=== PATIENT | male | born 1955 | race African-American/Black ===

== ENCOUNTER 2016-10-24 09:21 | Emergency (ER) | payer MEDICAID ==
[~2016-10-24] VITALS: Ht 177.8 cm; Wt 75.0 kg
[~2016-10-24 09:21] MED LIST: ALBU6.7H INH; AMLO5TAB2 PO; ASPI1TAB69 PO; FAMO1TAB37 PO; HYDR12.56 PO; IPRA17I INH; METO50TA11 PO; PROM25TA5 PO; SOMA350T PO; TAMS5CAP PO; TEMA30CA PO; ZENP PO
[2016-10-24 09:23] VITALS: BP 141/67; PULSE 61; RESP 18; TEMP 98.3; O2SAT 99
[2016-10-24 09:34] VITALS: BP 142/67; PULSE 62; RESP 18; TEMP 98.3; O2SAT 99
[2016-10-24] MEDS ORDERED: HYDR-3535 PO (09:56)
[2016-10-24] MEDS ORDERED: XANA1TAB2 PO (09:56)
--- NOTE | 2016-10-24 10:40 | PD ---
HPI Chief Complaint: Dizziness Time Seen by Provider: 10:31 Travel History International Travel<30 days: No Contact w/Intl Traveler<30days: No Traveled to known affect area: No History of Present Illness HPI 61-year-old male came to the emergency room with multiple complaints including chest pain, abdominal pain, dizziness, lightheadedness and thinking he might be anemic. Patient says all these symptoms have been going on since yesterday. He has had these symptoms in the past when he was diagnosed with anemia. 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 No history of syncopal episode this time. No history of vomiting or diarrhea. Vital signs were stable in the emergency room. He did not appear to be in any distress. His chest pain he points to his right side of the chest and says it radiates to his left and the left shoulder. No aggravating or relieving factors. PFSH Past Medical History Narrative Medical List of his past medical, surgical, social and family history is reviewed from the nursing note. Anemia: Yes Arthritis: Yes Asthma: No Autoimmune Disease: No Blood Disorders: No Anxiety: Yes Depression: No Heart Rhythm Problems: Yes (PATIENT STATES "HEART OCCASIONALLY BEATS OUT OF RHYTHM" [place]) Cancer: Yes Cardiac Catheterization: Yes Cardiovascular Problems: Yes ([place] ) High Cholesterol: No Chest Pain: Yes Congestive Heart Failure: Yes COPD: No Cerebrovascular Accident: Yes (TIA ) Coronary Artery Disease: Yes Diabetes: No Diminished Hearing: No Endocrine: No Gastrointestinal Disorders: Yes (GI BLEED, IBS) GERD: Yes Genitourinary: Yes (RETENTION FROM PROSTATE ENLARGEMENT) Headaches: Yes Hiatal Hernia: Yes Hypertension: Yes 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") Implanted Vascular Access Dvce: Yes Musculoskeletal: Yes (LEG WEAKNESS) Neurologic: Yes (CVA, TIA) Psychiatric: No Reproductive: No Respiratory: Yes (PNA, COPD) Immunizations Current: Yes Myocardial Infarction: Yes Pancreatitis: Yes Radiation Therapy: Yes Sleep Apnea: Yes Thyroid Disease: No Ulcer: Yes Tetanus Vaccination: < 5 Years Influenza Vaccination: Yes PNEUMOCCOCAL Vaccine (Year): 1 ?: Not Past Surgical History Abdominal Surgery: Yes (REPAIR LEAKING BLOOD VESSEL IN RECTUM X3, POLYP REMOVED ) AICD: No Arteriovenous Shunt: No Body Medical Devices: TITANIUM MIKE IN LEFT HIP, BULLET IN RIGHT SHOULDER Cardiac Surgery: Yes (CATH) Cholecystectomy: Yes Ear Surgery: No Endocrine Surgery: No Eye Surgery: No Genitourinary Surgery: No Gynecologic Surgery: No Insulin Pump: No Joint Replacement: Yes (LEFT HIP-TOTAL, LEFT ROTATOR CUFF SURGERY) Oral Surgery: No Pacemaker: No Thoracic Surgery: Yes (lung reattachment) Other Surgery: Yes (right lubg ) Social History Alcohol Use: No Tobacco Use: Yes Substance Use: No Allergies-Medications (Allergen,Severity, Reaction): Coded Allergies: Cardura (Verified Allergy, Severe, SOB,CHEST PAIN, 09/28/16) Cipro (Verified Allergy, Severe, RASH, SWOLLEN FACE, 09/28/16) Codeine (Verified Allergy, Severe, 09/28/16) PT DOESNT REMEMBER THE REACTION HE GETS Contrast Media (Verified Allergy, Severe, BLISTERS AND EDEMA AT SITE, ) Imodium (Verified Allergy, Severe, 09/28/16) BROKE OUT IN RASH, AND SWELLING AROUND NECK Nonsteroidal Anti-Inflammatory Agts (Verified Allergy, Severe, 09/28/16) Spironolactone (Verified Allergy, Severe, Bleeding, 09/28/16) Fentanyl (Verified Allergy, Mild, 09/28/16) rash Corticosteroids (Verified Adverse Reaction, Severe, HEART MURMUR, 09/28/16) MRI PRECAUTION (Verified Adverse Reaction, Severe, SHRAPNEL IN C-SPINE per Dr. Smart 10/26/04, 09/28/16) Morphine (Verified Adverse Reaction, Severe, CHEST PAIN, 09/28/16) Comments List of his allergies reviewed from the nursing note. Reported Meds & Prescriptions Reported Meds & Active Scripts Active Reported Xanax (Alprazolam) 1 Mg Tab 1 Mg PO Q8H PRN Lortab (Hydrocodone-Acetaminophen) 10-325 Mg Tab 1 Tab PO Q4H PRN Flomax (Tamsulosin HCl) 0.4 Mg Cap 0.4 Mg PO BID Hydrochlorothiazide 12.5 Mg Tab 25 Mg PO DAILY Metoprolol Succinate ER 24 HR (Metoprolol Succinate) 50 Mg Tab 100 Mg PO BID Soma (Carisoprodol) 350 Mg Tab 350 Mg PO TID PRN Atrovent HFA 12.9 GM Inh (Ipratropium [place]) 17 Mcg/Act Aer 2 Puff INH TID Aspirin 81 Mg Tabdr 81 Mg PO EVERY OTHER DAY Amlodipine (Amlodipine Besylate) 5 Mg Tab 5 Mg PO BID Proventil Hfa 6.7 GM Inh (Albuterol Sulfate) 90 Mcg/Act Aer 2 Puff INH Q6H PRN Zenpep (Pancrelipase) 3,000-10,000-16,000 Units Cap 2 Cap PO TIDPC Pepcid (Famotidine) 20 Mg Tab 20 Mg PO DAILY Phenergan (Promethazine HCl) 25 Mg Tab 12.5 Mg PO Q6H PRN Narrative Medication List of his home medications reviewed from the nursing note. Review of Systems Except as stated in HPI: all other systems reviewed are Neg Physical Exam Narrative GENERAL: Awake, alert, no obvious distress SKIN: Warm and dry. HEAD: Atraumatic. Normocephalic. EYES: Pupils equal and round. No scleral icterus. No injection or drainage. ENT: No nasal bleeding or discharge. Mucous membranes pink and moist. NECK: Trachea midline. No JVD. CARDIOVASCULAR: Regular rate and rhythm. No murmur appreciated. RESPIRATORY: No accessory muscle use. Clear to auscultation. Breath sounds equal bilaterally. GASTROINTESTINAL: Abdomen soft, non-tender, nondistended. Hepatic and splenic margins not palpable. MUSCULOSKELETAL: No obvious deformities. No clubbing. No cyanosis. No edema. NEUROLOGICAL: Awake and alert. No obvious cranial nerve deficits. Motor grossly within normal limits. Normal speech. PSYCHIATRIC: Appropriate mood and affect; insight and judgment normal. Data Data Last Documented VS Orders Complete Blood Count With Diff (10/24/16 10:36) Comprehensive Metabolic Panel (10/24/16 10:36) Drug Screen, Random Urine (10/24/16 10:36) Troponin I (10/24/16 10:36) Urinalysis - C+S If Indicated (10/24/16 10:36) Ct Brain W/O Iv Contrast(Rout) (10/24/16 10:36) Ecg Monitoring (10/24/16 10:36) Iv Access Insert/Monitor (10/24/16 10:36) Oximetry (10/24/16 10:36) Sodium Chloride 0.9% Flush (Ns Flush) (10/24/16 10:45) Chest, Single Ap (10/24/16 ) Lipase (10/24/16 10:36) Acetamin-Hydrocod 325-5 Mg ([place] 5-325 (10/24/16 10:45) Electrocardiogram (10/24/16 ) Sodium Chlorid 0.9% 500 Ml Inj (Ns 500 M (10/24/16 12:45) Labs MDM Medical Decision Making Medical Screen Exam Complete: Yes Emergency Medical Condition: Yes Medical Record Reviewed: Yes Interpretation(s) Twelve-lead EKG was reviewed by me. Normal sinus rhythm, normal axis, bradycardia, nonspecific ST-T wave changes. Heart rate of 54 bpm. Differential Diagnosis ACS, non-STEMI, anemia Narrative Course 11:19 AM CBC is back and patient is slightly anemic but does not require blood transfusion. Awaiting for the rest of the blood test results to come back. Patient was given 1 by mouth hydrocodone for his chest pain that he insisted. 12:45 PM all the blood test results of back and within acceptable limits. Patient had ketones in his urine and I have ordered 500 cc of IV fluid bolus. I will discharge him home at this point. He needs to follow up with his primary care. Procedures EKG Prior to Arrival: Yes Diagnosis Primary Impression: Nonspecific chest pain Additional Impression: Chronic anemia Referrals: Primary Care Physician 2 days Additional Instructions: Please return to the ER if the condition worsens or any other new concerns. Otherwise follow-up with your primary care. Med/Other Pt SpecificInfo: No Change to Meds Disposition: 01 DISCHARGE HOME Condition: Stable Shane Kessler MD Oct 24, 2016 10:40 Monocytes (%) (Auto) 10.5 % Eosinophils (%) (Auto) 2.4 % Basophils (%) (Auto) 2.3 % Neutrophils # (Auto) 2.8 TH/MM3 Lymphocytes # (Auto) 1.4 TH/MM3 Monocytes # (Auto) 0.5 TH/MM3 Eosinophils # (Auto) 0.1 TH/MM3 Basophils # (Auto) 0.1 TH/MM3 CBC Comment AUTO DIFF Differential Comment AUTO DIFF CONFIRMED Ovalocytes 1+ Urine Color YELLOW Urine Turbidity CLEAR Urine pH 8.5 Urine Specific [place] 1.022 Urine Protein 30 mg/dL Urine Glucose (UA) NEG mg/dL Urine Ketones 80 mg/dL Urine Occult Blood NEG Urine Nitrite NEG Urine Bilirubin NEG Urine Urobilinogen 2.0 MG/DL Urine Leukocyte Esterase NEG Urine RBC LESS THAN 1 /hpf Urine WBC 1 /hpf Urine Mucus FEW /lpf Microscopic Urinalysis Comment CATH-CULT NOT IND Urine Opiates Screen NEG Urine Barbiturates Screen NEG Urine Amphetamines Screen NEG Urine Benzodiazepines Screen NEG Urine Cocaine Screen NEG Urine Cannabinoids Screen NEG Sodium Level 137 MEQ/L Potassium Level 3.7 MEQ/L Chloride Level 101 MEQ/L Carbon Dioxide Level 24.6 MEQ/L Anion Gap 11 MEQ/L Blood Urea Nitrogen 17 MG/DL Creatinine 0.78 MG/DL Estimat Glomerular Filtration 122 ML/MIN Rate Random Glucose 77 MG/DL Calcium Level 8.7 MG/DL Total Bilirubin 0.7 MG/DL Aspartate Amino Transf 23 U/L (AST/SGOT) Alanine Aminotransferase 15 U/L (ALT/SGPT) Alkaline Phosphatase 108 U/L Troponin I LESS THAN 0.02 NG/ML Total Protein 8.4 GM/DL Albumin 3.5 GM/DL Lipase 366 U/L MDM Medical Decision Making Medical Screen Exam Complete: Yes Emergency Medical Condition: Yes Medical Record Reviewed: Yes Interpretation(s) Twelve-lead EKG was reviewed by me. Normal sinus rhythm, normal axis, bradycardia, nonspecific ST-T wave changes. Heart rate of 54 bpm. Differential Diagnosis ACS, non-STEMI, anemia Narrative Course 11:19 AM CBC is back and patient is slightly anemic but does not require blood transfusion. Awaiting for the rest of the blood test results to come back. Patient was given 1 by mouth hydrocodone for his chest pain that he insisted. 12:45 PM all the blood test results of back and within acceptable limits. Patient had ketones in his urine and I have ordered 500 cc of IV fluid bolus. I will discharge him home at this point. He needs to follow up with his primary care. Procedures EKG Prior to Arrival: Yes Diagnosis Primary Impression: Nonspecific chest pain Additional Impression: Chronic anemia Referrals: Primary Care Physician 2 days Additional Instructions: Please return to the ER if the condition worsens or any other new concerns. Otherwise follow-up with your primary care. Med/Other Pt SpecificInfo: No Change to Meds Disposition: 01 DISCHARGE HOME Condition: Stable Shane Kessler MD Oct 24, 2016 10:40
[2016-10-24] MEDS ORDERED: ACETAMINOPHEN/HYDROcodone 325 MG/5 MG TAB PO ONE (10:45)
[2016-10-24] MEDS ORDERED: SODIUM CHLORIDE 0.9% FLUSH 5 ML FLUSH IVF PRN (10:45)
[2016-10-24 10:54] LABS: AUTOMATED NEUTROPHIL # 2.8 TH/MM3 (1.8-7.7); BASOPHIL # 0.1 TH/MM3 (0-0.2); BASOPHIL % 2.3 % (0.0-2.0); EOSINOPHIL # 0.1 TH/MM3 (0-0.4); EOSINOPHIL % 2.4 % (0.0-4.0); HEMATOCRIT 31.7 % (39.0-51.0); LYMPHOCYTE # 1.4 TH/MM3 (1.0-4.8); MEAN CELL VOLUME 79.1 FL (80.0-100.0); MEAN CORPUSCULAR HEMOGLOBIN 24.8 PG (27.0-34.0); MEAN CORPUSCULAR HGB CONC 31.4 % (32.0-36.0); MONO % 10.5 % (0.0-8.0); NEUT % 56.8 % (16.0-70.0); PLATELET COUNT 379 TH/MM3 (150-450); RED BLOOD COUNT 4.01 MIL/MM3 (4.50-5.90); RED CELL DISTRIBUTION WIDTH 19.6 % (11.6-17.2)
[2016-10-24 10:57] LABS: HEMO FLAGS AUTO DIFF
[2016-10-24 11:08] LABS: BLOOD, URINE NEG (NEG); COMMENT (UR) CATH-CULT NOT IND; CULTURE IF INDICATED CATH CULTURE NOT IND; GLUCOSE,URINE NEG (NEG); KETONE, URINE 80 mg/dL (NEG); MUCUS URINE FEW /lpf (OCC); NITRITE,URINE NEG (NEG); PH, URINE 8.5 (5.0-8.5); URINE COLOR YELLOW (YELLW/STRAW)
[2016-10-24 11:16] LABS: ALKALINE PHOSPHATASE 108 U/L (45-117); TOTAL BILIRUBIN ADULT 0.7 MG/DL (0.2-1.0)
--- NOTE | 2016-10-24 11:19 | RADRPT ---
EXAM DATE/TIME: 10/24/2016 10:51 [facility] COMPARISON: CT BRAIN W/O CONTRAST, May 30, 2016, 19:39. INDICATIONS : Left head and face pain. Dizziness. Difficulty standing. Evaluate for cerebral vascular accident. RADIATION DOSE: 56.77 CTDIvol (mGy) MEDICAL HISTORY : Chronic obstructive pulmonary disease. Congestive heart failure. Cerebrovascular disease.Prostate can cer. Hypertension. SURGICAL HISTORY : Lobectomy. ENCOUNTER: Initial ACUITY: 1 day PAIN SCALE: 5/10 LOCATION: cranial TECHNIQUE: Multiple contiguous axial images were obtained of the head. Using automated exposure control and adj ustment of the mA and/or kV according to patient size, radiation dose was kept as low as reasonably a chievable to obtain optimal diagnostic quality images. FINDINGS: CEREBRUM: There is mild cerebral atrophy. Ventricles are normal in size. There is stable very mild periventricu lar white matter low attenuation. No evidence of midline shift, mass lesion, hemorrhage or acute inf arction. No extra-axial fluid collections are seen. POSTERIOR FOSSA: The cerebellum and brainstem are intact. The 4th ventricle is midline. The cerebellopontine angle i s unremarkable. EXTRACRANIAL: Visualized sinuses are clear. SKULL: The calvaria is intact. No evidence of skull fracture. CONCLUSION: Stable noncontrast head CT. No acute intracranial abnormality is identified. Peter Watts MD on October 24, 2016 at 11:15 Board Certified Radiologist. This report was verified electronically.
[2016-10-24 11:21] LABS: AMPHETAMINE, URINE NEG (NEG); BARBITURATES, URINE NEG (NEG); COCAINE, URINE NEG (NEG)
[2016-10-24 11:32] LABS: OVALOCYTES 1+ (NORMAL); SCAN/DIFF AUTO DIFF CONFIRMED
[2016-10-24 12:00] VITALS: BP 148/72; PULSE 60; RESP 18; O2SAT 99
[2016-10-24 12:29] LABS: AST (GOT) 23 U/L (15-37); BLOOD UREA NITROGEN 17 MG/DL (7-18); CHLORIDE 101 MEQ/L (98-107); GLOMERULAR FILTRATION RATE 122 ML/MIN (>89)
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
[2016-10-24 12:38] LABS: ALT (GPT) 15 U/L (12-78); POTASSIUM 3.7 MEQ/L (3.5-5.1); SODIUM (NA) 137 MEQ/L (136-145)
[2016-10-24 12:39] LABS: ANION GAP 11 MEQ/L (5-15); BICARBONATE 24.6 MEQ/L (21.0-32.0)
[2016-10-24 12:45] VITALS: O2SAT 98
[2016-10-24] MEDS ORDERED: SODIUM CHLORID 0.9% 500 ML INJ 500 ML IV ONE (12:45)
[2016-10-24 14:00] VITALS: BP 140/67; PULSE 68; RESP 18; O2SAT 99
--- NOTE | 2016-10-24 15:10 | EKG ---
Date Performed: 10/24/2016 Time Performed: 09:22:09 PTAGE: 61 years EKG: SINUS BRADYCARDIA BORDERLINE ECG Compared to prior tracing no significant change PREVIOUS TRACING : 09/25/2015 22.13 DOCTOR: Nazario Hernandez Interpretating Date/Time 10/24/2016 15:09:06
== END 2016-10-24 15:39 | disposition home or self-care (01) ==
LOC: NEPE 09:21
DX: R07.9 Chest pain, unspecified (principal); D64.9 Anemia, unspecified; R10.9 Unspecified abdominal pain; R42 Dizziness and giddiness
CPT/HCPCS: 70450; 71010; 80053; 80307; 81001; 83690; 84484; 85025; 93005; 99285; J7040

== ENCOUNTER 2016-11-07 13:13 | Observation (INO) | payer MEDICAID ==
[~2016-11-07] VITALS: Ht 177.8 cm; Wt 76.0 kg
[~2016-11-07 13:13] MED LIST changes: +HYDR-3535 PO; -TEMA30CA PO; +XANA1TAB2 PO
[2016-11-07 13:14] VITALS: BP 127/63; PULSE 84; RESP 20; TEMP 97.4; O2SAT 100
[2016-11-07 15:49] VITALS: BP 119/67; PULSE 65; RESP 16; TEMP 97.7; O2SAT 100
[2016-11-07] MEDS ORDERED: PANTOPRAZOLE INJ 80 MG in SODIUM CHLORIDE 0.9% INJ 35 ML IV ONE (16:00)
[2016-11-07] MEDS ORDERED: SODIUM CHLORIDE 0.9% FLUSH 5 ML FLUSH IVF PRN (16:00)
[2016-11-07] MEDS ORDERED: ONDANSETRON HCL 4 MG/2 ML VIAL IVP ONE (16:00)
--- NOTE | 2016-11-07 16:01 | PD ---
HPI Chief Complaint: GI Complaint Time Seen by Provider: 16:01 Travel History International Travel<30 days: No Contact w/Intl Traveler<30days: No Traveled to known affect area: No History of Present Illness HPI 61-year-old male with a history of anemia, CAD, prostate cancer status post radiation therapy, recurrent GI bleed, hypertension, chronic pancreatitis presents to the emergency department for evaluation of bloody stool. The patient states that this morning he woke up and had one normal bowel movement that was brown in color. States that after this from about 9 AM to 1 PM he had 9-10 episodes of bowel movement with large amounts of dark red stool, maroon colored. States that he is also having abdominal cramping. 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 Denies any alcohol use. Denies any fever, chills, nausea, vomiting, chest pain, shortness of breath, lightheadedness, dizziness. Home Paraprofessional is Dr. Saenz. PCP Dr. Margarita camacho. No other complaints. PFSH Past Medical History Anemia: Yes Arthritis: Yes Asthma: No Autoimmune Disease: No Blood Disorders: No Anxiety: Yes Depression: No Heart Rhythm Problems: Yes (PATIENT STATES "HEART OCCASIONALLY BEATS OUT OF RHYTHM" [place]) Cancer: Yes (PROSTATE) Cardiac Catheterization: Yes Cardiovascular Problems: Yes High Cholesterol: No Chest Pain: Yes Congestive Heart Failure: Yes COPD: No Cerebrovascular Accident: Yes (TIA ) Coronary Artery Disease: Yes Diabetes: No Diminished Hearing: No Endocrine: No Gastrointestinal Disorders: Yes (GI BLEED, IBS) GERD: Yes Genitourinary: Yes (RETENTION FROM PROSTATE ENLARGEMENT) Headaches: Yes Hiatal Hernia: Yes Hypertension: Yes 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") Implanted Vascular Access Dvce: Yes Musculoskeletal: Yes (LEG WEAKNESS) Neurologic: Yes (CVA, TIA) Psychiatric: No Reproductive: No Respiratory: Yes (PNA, COPD) Immunizations Current: Yes Myocardial Infarction: Yes Pancreatitis: Yes Radiation Therapy: Yes Sleep Apnea: Yes Thyroid Disease: No Ulcer: Yes PNEUMOCCOCAL Vaccine (Year): 1 Past Surgical History Abdominal Surgery: Yes (REPAIR LEAKING BLOOD VESSEL IN RECTUM X3, POLYP REMOVED ) AICD: No Arteriovenous Shunt: No Body Medical Devices: TITANIUM MIKE IN LEFT HIP, BULLET IN RIGHT SHOULDER Cardiac Surgery: Yes (CATH) Cholecystectomy: Yes Ear Surgery: No Endocrine Surgery: No Eye Surgery: No Genitourinary Surgery: No Gynecologic Surgery: No Insulin Pump: No Joint Replacement: Yes (LEFT HIP-TOTAL, LEFT ROTATOR CUFF SURGERY) Oral Surgery: No Pacemaker: No Thoracic Surgery: Yes (lung reattachment) Other Surgery: Yes (LEFT HIP REPLACEMENT, GALLBLADDER REMOVAL) Social History Alcohol Use: No Tobacco Use: Yes (1 CIGARETTE A DAY) Substance Use: No Allergies-Medications (Allergen,Severity, Reaction): Coded Allergies: Cardura (Verified Allergy, Severe, SOB,CHEST PAIN, 11/07/16) Cipro (Verified Allergy, Severe, RASH, SWOLLEN FACE, 11/07/16) Codeine (Verified Allergy, Severe, 11/07/16) PT DOESNT REMEMBER THE REACTION HE GETS Contrast Media (Verified Allergy, Severe, BLISTERS AND EDEMA AT SITE, 11/07) Imodium (Verified Allergy, Severe, 11/07/16) BROKE OUT IN RASH, AND SWELLING AROUND NECK Nonsteroidal Anti-Inflammatory Agts (Verified Allergy, Severe, 11/07/16) Spironolactone (Verified Allergy, Severe, Bleeding, 11/07/16) Fentanyl (Verified Allergy, Mild, 11/07/16) rash Corticosteroids (Verified Adverse Reaction, Severe, HEART MURMUR, 11/07/16) MRI PRECAUTION (Verified Adverse Reaction, Severe, SHRAPNEL IN C-SPINE per Dr. Smart 10/26/04, 11/07/16) Morphine (Verified Adverse Reaction, Severe, CHEST PAIN, 11/07/16) Reported Meds & Prescriptions Reported Meds & Active Scripts Active Reported Xanax (Alprazolam) 1 Mg Tab 1 Mg PO Q8H PRN Lortab (Hydrocodone-Acetaminophen) 10-325 Mg Tab 1 Tab PO Q4H PRN Flomax (Tamsulosin HCl) 0.4 Mg Cap 0.4 Mg PO BID Hydrochlorothiazide 12.5 Mg Tab 25 Mg PO DAILY Metoprolol Succinate ER 24 HR (Metoprolol Succinate) 50 Mg Tab 100 Mg PO BID Soma (Carisoprodol) 350 Mg Tab 350 Mg PO TID PRN Atrovent HFA 12.9 GM Inh (Ipratropium [place]) 17 Mcg/Act Aer 2 Puff INH TID Aspirin 81 Mg Tabdr 81 Mg PO EVERY OTHER DAY Amlodipine (Amlodipine Besylate) 5 Mg Tab 5 Mg PO BID Proventil Hfa 6.7 GM Inh (Albuterol Sulfate) 90 Mcg/Act Aer 2 Puff INH Q6H PRN Zenpep (Pancrelipase) 3,000-10,000-16,000 Units Cap 2 Cap PO TIDPC Pepcid (Famotidine) 20 Mg Tab 20 Mg PO DAILY Phenergan (Promethazine HCl) 25 Mg Tab 12.5 Mg PO Q6H PRN Review of Systems Except as stated in HPI: all other systems reviewed are Neg Physical Exam Narrative GENERAL: Well-nourished and well-developed pleasant male patient in no acute distress. SKIN: Warm and dry. HEAD: Normocephalic and atraumatic. EYES: No injection, drainage, or hyphema noted. PERRLA. EOMI. ENT: No nasal drainage noted. Oropharynx is clear. NECK: Supple and the trachea is midline. CARDIOVASCULAR: Regular rate and rhythm. RESPIRATORY: Breath sounds are equal bilaterally with no accessory muscle use, wheezing, rhonchi, or crackles. GASTROINTESTINAL: Abdomen is soft, non-tender, and nondistended. No rebound tenderness or guarding. RECTAL EXAM: No masses or tenderness, stool is maroon colored. Performed in the presence of Blanca HUYNH. MUSCULOSKELETAL: No obvious deformities, swelling, cyanosis, or ecchymosis is present throughout the upper and lower extremities. Patient has full range of motion without any signs of neurovascular compromise. NEUROLOGICAL: Awake, alert, and oriented. Normal speech and gait. Cranial nerves are grossly intact. Data Data Last Documented VS Vital Signs Date Time Temp Pulse Resp B/P Pulse Ox O2 Delivery O2 Flow Rate FiO2 11/07/16 16:50 18 11/07/16 15:49 97.7 65 119/67 100 Room Air Orders Complete Blood Count With Diff (11/07/16 15:58) Comprehensive Metabolic Panel (11/07/16 15:58) Lipase (11/07/16 15:58) Prothrombin Time / Inr (Pt) (11/07/16 15:58) Act Partial Throm Time (Ptt) (11/07/16 15:58) Type And Screen (11/07/16 15:58) Ecg Monitoring (11/07/16 15:58) Iv Access Insert/Monitor (11/07/16 15:58) Oximetry (11/07/16 15:58) Ondansetron Inj (Zofran Inj) (11/07/16 16:00) Sodium Chloride 0.9% Flush (Ns Flush) (11/07/16 16:00) Pantoprazole Inj (Protonix Inj) (11/07/16 16:00) Pantoprazole Inj (Protonix Inj) (11/07/16 16:00) Morphine Inj (Morphine Inj) (11/07/16 16:15) Consult Gastroenterology (11/07/16 ) Admit Order (Ed Use Only) (11/07/16 18:21) Labs Laboratory Tests Test 11/07/16 16:20 White Blood Count 7.0 TH/MM3 Red Blood Count 4.12 MIL/MM3 Hemoglobin 10.1 GM/DL Hematocrit 33.3 % Mean Corpuscular Volume 80.9 FL Mean Corpuscular Hemoglobin 24.5 PG Mean Corpuscular Hemoglobin 30.3 % Concent Red Cell Distribution Width 20.1 % Platelet Count 365 TH/MM3 Mean Platelet Volume 8.1 FL Neutrophils (%) (Auto) 53.8 % Lymphocytes (%) (Auto) 30.4 % Monocytes (%) (Auto) 8.5 % Eosinophils (%) (Auto) 6.0 % Basophils (%) (Auto) 1.3 % Neutrophils # (Auto) 3.8 TH/MM3 Lymphocytes # (Auto) 2.1 TH/MM3 Monocytes # (Auto) 0.6 TH/MM3 Eosinophils # (Auto) 0.4 TH/MM3 Basophils # (Auto) 0.1 TH/MM3 CBC Comment AUTO DIFF Differential Comment AUTO DIFF CONFIRMED Platelet Estimate NORMAL Platelet Morphology Comment NORMAL Ovalocytes 1+ Keratocytes OCC Prothrombin Time 10.7 SEC Prothromb Time International 1.0 RATIO Ratio Activated Partial 25.7 SEC Thromboplast Time Sodium Level 139 MEQ/L Potassium Level 4.3 MEQ/L Chloride Level 105 MEQ/L Carbon Dioxide Level 25.9 MEQ/L Anion Gap 8 MEQ/L Blood Urea Nitrogen 17 MG/DL Creatinine 0.79 MG/DL Estimat Glomerular Filtration 120 ML/MIN Rate Random Glucose 78 MG/DL Calcium Level 9.1 MG/DL Total Bilirubin 0.2 MG/DL Aspartate Amino Transf 15 U/L (AST/SGOT) Alanine Aminotransferase 18 U/L (ALT/SGPT) Alkaline Phosphatase 104 U/L Total Protein 8.0 GM/DL Albumin 3.8 GM/DL Lipase 231 U/L Blood Type B POSITIVE Antibody Screen NEGATIVE MDM Medical Decision Making Medical Screen Exam Complete: Yes Emergency Medical Condition: Yes Differential Diagnosis GI bleed versus anemia versus gastritis versus colitis Narrative Course 61-year-old male presents to the emergency department for evaluation of bloody stool. Patient is afebrile, vital signs are stable. Abdominal examination is benign. Patient does have turned colored stool on rectal examination that is heme positive. IV access is obtained, labs been drawn and sent. Patient is placed on telemetry and pulse oximetry. Protonix drip and bolus is initiated. CBC shows mild anemia with a hemoglobin of 10.1, hematocrit 33.3. CMP is unremarkable. Coags are unremarkable. Hemoglobin and hematocrit is stable and patient does not require any transfusion at this time. Patient has remained stable without complaint while here in the emergency department. Patient will be admitted to medicine service with gastroenterology consultation for GI bleed. I discussed the case with my attending physician Dr. Bain who is aware of the patients history, physical examination findings, and treatment plan. HemaPrompt Point of Care Internal Pos. & Neg. Controls: Passed Fecal Specimen Occult Blood: Positive Physician Communication Physician Communication I spoke with Dr. Saenz to tobacco cloth reclaimer who agrees to consult on the patient. I spoke with Dr. Oleary [facility] who agrees to admit the patient to her service. Diagnosis Primary Impression: GI bleeding Qualified Code: K92.1 - Gastrointestinal hemorrhage with melena Admitting Information Admitting Physician Requests: Admit Holly Reyes Nov 07, 2016 16:01
[2016-11-07] MEDS ORDERED: MORPHINE SULFATE 4 MG/ML INJ IV PUSH ONE (16:15)
[2016-11-07 16:53] LABS: AUTOMATED NEUTROPHIL # 3.8 TH/MM3 (1.8-7.7); BASOPHIL # 0.1 TH/MM3 (0-0.2); BASOPHIL % 1.3 % (0.0-2.0); EOSINOPHIL # 0.4 TH/MM3 (0-0.4); HEMATOCRIT 33.3 % (39.0-51.0); LYMPH % 30.4 % (9.0-44.0); LYMPHOCYTE # 2.1 TH/MM3 (1.0-4.8); MEAN CELL VOLUME 80.9 FL (80.0-100.0); MEAN CORPUSCULAR HEMOGLOBIN 24.5 PG (27.0-34.0); MEAN CORPUSCULAR HGB CONC 30.3 % (32.0-36.0); MONO % 8.5 % (0.0-8.0); NEUT % 53.8 % (16.0-70.0); PLATELET COUNT 365 TH/MM3 (150-450); RED BLOOD COUNT 4.12 MIL/MM3 (4.50-5.90); RED CELL DISTRIBUTION WIDTH 20.1 % (11.6-17.2)
[2016-11-07 16:58] LABS: HEMO FLAGS AUTO DIFF
[2016-11-07 17:06] LABS: APTT (PATIENT) 25.7 SEC (24.3-30.1); PROTHROMBIN TIME - PATIENT 10.7 SEC (9.8-11.6)
[2016-11-07 17:11] LABS: ANION GAP 8 MEQ/L (5-15); AST (GOT) 15 U/L (15-37); BICARBONATE 25.9 MEQ/L (21.0-32.0); BLOOD UREA NITROGEN 17 MG/DL (7-18); CHLORIDE 105 MEQ/L (98-107); GLOMERULAR FILTRATION RATE 120 ML/MIN (>89); POTASSIUM 4.3 MEQ/L (3.5-5.1); SODIUM (NA) 139 MEQ/L (136-145)
[2016-11-07 17:14] LABS: ALKALINE PHOSPHATASE 104 U/L (45-117); ALT (GPT) 18 U/L (12-78); TOTAL BILIRUBIN ADULT 0.2 MG/DL (0.2-1.0)
[2016-11-07] MEDS: PANTOPRAZOLE INJ 80 MG in SODIUM CHLORIDE 0.9% INJ 100 ML IV SCH (17:21)
[2016-11-07 17:35] LABS: KERATOCYTES OCC (NORMAL); OVALOCYTES 1+ (NORMAL); PLATELET ESTIMATE SMEAR NORMAL (NORMAL); PLATELET MORPHOLOGY NORMAL (NORMAL); SCAN/DIFF AUTO DIFF CONFIRMED
[2016-11-07 18:34] VITALS: O2SAT 97
[2016-11-07] MEDS ORDERED: POTA10PO PO (19:02)
[2016-11-07] MEDS ORDERED: NALOXONE HCL 0.4 MG/ML AMP IV PRN (19:45)
[2016-11-07] MEDS ORDERED: ONDANSETRON HCL 4 MG/2 ML VIAL IVP PRN (19:45)
[2016-11-07] MEDS: SODIUM CHLORIDE 0.9% FLUSH 5 ML FLUSH FLUSH SCH (21:22)
[2016-11-07 21:42] LABS: HEMATOCRIT 32.3 % (39.0-51.0); REVIEW FLAG FINAL
[2016-11-07] MEDS ORDERED: DIATRIZOATE MEGLUM/DIATRIZOATE SOD 9 ML CUP ONE (21:57)
[2016-11-07] MEDS: MORPHINE SULFATE 4 MG/ML INJ IV PUSH PRN (22:05)
[2016-11-07] MEDS ORDERED: DIATRIZOATE MEGLUM/DIATRIZOATE SOD 9 ML CUP PO ONE (22:15)
--- NOTE | 2016-11-07 22:53 | HHI.HP ---
HPI Service [facility] Primary Care Physician Ravin Pérez Admission Diagnosis GI Bleed Diagnoses: (1) GI bleeding (2) Abdominal pain (3) Anemia (4) Leukocytosis Chief Complaint: blood in stool Travel History International Travel<30 Days: No Contact w/Intl Traveler <30 Da: No Traveled to Known Affected Are: No History of Present Illness Mr. Erazo is a 61-year-old male with a past medical history of CVA with left hand residual weakness, TIA, CAD, CHF, hypertension, COPD, prostate cancer status post radiation treatment, and right lung empyema requiring VATS and decortication in January 2015 who presented to the emergency room after experiencing several dark colored stools on 11/07/2016. Stools were heme positive in the ER and the patient is admitted for GI bleed. The patient is seen in the CDU. He states that on 11/07/2016, he had a normal BM at 9:00 in the morning. Following that stool, he proceeded to have 10 bowel movements colored dark red/maroon. Initially, the stools were soft but then proceeded to get softer with each subsequent stool. He reports a history of hiatal hernia and rectal ulcers but denies hemorrhoids. He states he's also been experiencing some epigastric and rectal pain with the symptoms. He denies nausea, vomiting, fever. He reports chronic chills. He has a history of anemia and states that Dr. Larsen (heme/onc) is setting up iron infusions for him to undergo as an outpatient. He also reports unintentional weight loss of 26 pounds over the last month. Denies diabetes, cad, seizures, thyroid dysfunction. . Review of Systems Except as stated in HPI: all other systems reviewed are Neg Past Family Social History Past Medical History Glaucoma TIA CVA CAD CHF Hypertension COPD Right lung empyema 01/2015 GERD Prostate Cancer . Past Surgical History Right lung surgery - VAT and decortication 01/20/15 left hip replacement left rotator cuff surgery cholecystectomy - Dr. Marinelli . Reported Medications Reported Meds & Active Scripts Active Reported Potassium Chloride Powder (Potassium Chloride) 20 Meq Powderpack 20 Meq PO DAILY Xanax (Alprazolam) 1 Mg Tab 1 Mg PO Q8H PRN Lortab (Hydrocodone-Acetaminophen) 10-325 Mg Tab 1 Tab PO Q4H PRN Flomax (Tamsulosin HCl) 0.4 Mg Cap 0.4 Mg PO BID Hydrochlorothiazide 12.5 Mg Tab 25 Mg PO DAILY Metoprolol Succinate ER 24 HR (Metoprolol Succinate) 50 Mg Tab 100 Mg PO BID Soma (Carisoprodol) 350 Mg Tab 350 Mg PO TID PRN Atrovent HFA 12.9 GM Inh (Ipratropium [place]) 17 Mcg/Act Aer 2 Puff INH TID Aspirin 81 Mg Tabdr 81 Mg PO EVERY OTHER DAY Amlodipine (Amlodipine Besylate) 5 Mg Tab 5 Mg PO BID Proventil Hfa 6.7 GM Inh (Albuterol Sulfate) 90 Mcg/Act Aer 2 Puff INH Q6H PRN Zenpep (Pancrelipase) 3,000-10,000-16,000 Units Cap 2 Cap PO TIDPC Pepcid (Famotidine) 20 Mg Tab 20 Mg PO DAILY Phenergan (Promethazine HCl) 25 Mg Tab 12.5 Mg PO Q6H PRN Allergies: Coded Allergies: Cardura (Verified Allergy, Severe, SOB,CHEST PAIN, 11/07/16) Cipro (Verified Allergy, Severe, RASH, SWOLLEN FACE, 11/07/16) Codeine (Verified Allergy, Severe, 11/07/16) PT DOESNT REMEMBER THE REACTION HE GETS Contrast Media (Verified Allergy, Severe, BLISTERS AND EDEMA AT SITE, 11/07) Imodium (Verified Allergy, Severe, 11/07/16) BROKE OUT IN RASH, AND SWELLING AROUND NECK Nonsteroidal Anti-Inflammatory Agts (Verified Allergy, Severe, 11/07/16) Spironolactone (Verified Allergy, Severe, Bleeding, 11/07/16) Fentanyl (Verified Allergy, Mild, 11/07/16) rash Corticosteroids (Verified Adverse Reaction, Severe, HEART MURMUR, 11/07/16) MRI PRECAUTION (Verified Adverse Reaction, Severe, SHRAPNEL IN C-SPINE per Dr. Smart 10/26/04, 11/07/16) Active Ordered Medications Current Medications Ondansetron HCl (Zofran Inj) 4 mg ONCE ONCE IVP Last administered on 16:45; Start 11/07/16 at 16:00; Stop 11/07/16 at 16:02; Status DC IV Flush 2 ml 2 ml UNSCH PRN IVF FLUSH AFTER USING IV ACCESS; Start 11/07/16 at 16:00; Stop 11/07/16 at 22:04; Status DC Pantoprazole Sodium 80 mg/ Sodium Chloride 35 ml @ 420 mls/hr ONCE ONCE IV Last administered on 11/07/16 17:20; Start 11/07/16 at 16:00; Stop 11/07/16 at 16:04; Status DC Pantoprazole Sodium/Sodium Chloride (Protonix Inj/NS Inj) 100 ml @ 10 mls/hr Q10H IV Last administered on 11/07/16 17:21; Start 11/07/16 at 16:00 Morphine Sulfate (Morphine Inj) 4 mg ONCE ONCE IV PUSH Last administered on 16:45; Start 11/07/16 at 16:15; Stop 11/07/16 at 16:16; Status DC IV Flush (NS Flush) 2 ml UNSCH PRN FLUSH FLUSH AFTER USING IV ACCESS; Start at 19:45 IV Flush (NS Flush) 2 ml BID FLUSH Last administered on 11/07/16 21:22; Start 11/07/16 at 21:00 Ondansetron HCl (Zofran Inj) 4 mg Q6H PRN IVP NAUSEA OR VOMITING; Start at 19:45 Naloxone HCl (Narcan Inj) 0.4 mg UNSCH PRN IV SEE LABEL COMMENTS; Start at 19:45 Morphine Sulfate (Morphine Inj) 2 mg Q3H PRN IV PUSH pain >5 Last administered on 11/07/16 22:05; Start 11/07/16 at 21:15 Diatrizoate Meglum/ Diatrizoate Sod ( Gastrocarlene [place]) 18 ml STK-MED ONCE .ROUTE Last administered on 11/07/16 22:05; Start 11/07/16 at 21:57; Stop at 21:58; Status DC Diatrizoate Meglum/ Diatrizoate Sod ( Gastrocarlene Lil[place]) 18 ml ONCE ONCE PO Last administered on 11/07/16t 22:14; Start 11/07/16 at 22:15; Stop 11/07/16 at 22:16; Status DC . Family History father and mother with renal disease Brother with colon cancer Brother with prostate cancer - age 90 y/o . Social History Tobacco: smokes 1 cigarette a day ETOH: former drinker; denies any recent alcohol intake for last 13 months Physical Exam Vital Signs Vital Signs Date Time Temp Pulse Resp B/P Pulse Ox O2 Delivery O2 Flow Rate FiO2 11/07/16 18:34 97 Room Air 11/07/16 16:50 18 11/07/16 15:49 97.7 65 16 119/67 100 Room Air 11/07/16 13:14 97.4 84 20 127/63 100 Room Air Physical Exam GENERAL: This is a pleasant, talkative male patient, in no apparent distress. SKIN: No rashes, ecchymoses or lesions. Cool and dry. HEAD: Atraumatic. Normocephalic. EYES: No scleral icterus. No injection or drainage. ENT: Nose without bleeding, purulent drainage. NECK: Trachea midline. No JVD or lymphadenopathy. CARDIOVASCULAR: Regular rate and rhythm without murmurs, gallops, or rubs. RESPIRATORY: Clear to auscultation. Breath sounds equal bilaterally. No wheezes , rales, or rhonchi. GASTROINTESTINAL: Abdomen soft, non-tender, nondistended. No guarding. MUSCULOSKELETAL: Extremities without clubbing, cyanosis, or edema. No calf tenderness. NEUROLOGICAL: Awake and alert. Motor and sensory grossly within normal limits. Normal speech. . Laboratory Laboratory Tests Test 11/07/16 11/07/16 16:20 20:55 White Blood Count 7.0 Red Blood Count 4.12 Hemoglobin 10.1 10.0 Hematocrit 33.3 32.3 Mean Corpuscular Volume 80.9 Mean Corpuscular Hemoglobin 24.5 Mean Corpuscular Hemoglobin 30.3 Concent Red Cell Distribution Width 20.1 Platelet Count 365 Mean Platelet Volume 8.1 Neutrophils (%) (Auto) 53.8 Lymphocytes (%) (Auto) 30.4 Monocytes (%) (Auto) 8.5 Eosinophils (%) (Auto) 6.0 Basophils (%) (Auto) 1.3 Neutrophils # (Auto) 3.8 Lymphocytes # (Auto) 2.1 Monocytes # (Auto) 0.6 Eosinophils # (Auto) 0.4 Basophils # (Auto) 0.1 CBC Comment AUTO DIFF Differential Comment AUTO DIFF CONFIRMED Platelet Estimate NORMAL Platelet Morphology Comment NORMAL Ovalocytes 1+ Keratocytes OCC Prothrombin Time 10.7 Prothromb Time International 1.0 Ratio Activated Partial 25.7 Thromboplast Time Sodium Level 139 Potassium Level 4.3 Chloride Level 105 Carbon Dioxide Level 25.9 Anion Gap 8 Blood Urea Nitrogen 17 Creatinine 0.79 Estimat Glomerular Filtration 120 Rate Random Glucose 78 Calcium Level 9.1 Total Bilirubin 0.2 Aspartate Amino Transf 15 (AST/SGOT) Alanine Aminotransferase 18 (ALT/SGPT) Alkaline Phosphatase 104 Total Protein 8.0 Albumin 3.8 Lipase 231 Blood Type B POSITIVE Antibody Screen NEGATIVE Result Diagram: 11/07/16205411/07/16 162 Imaging Last Impressions Chest X-Ray 11/07/16 0000 Signed Impressions: Service Date/Time: Monday, November 07, 2016 23:31 - CONCLUSION: COPD. Clear lungs. Anthony Stovall MD Abdomen/Pelvis CT 11/07/16 0000 Signed Impressions: Service Date/Time: Monday, November 07, 2016 23:48 - CONCLUSION: 1. Atherosclerosis. 2. Chronic pancreatitis sequela with calcifications and ductal dilatation again noted. 3. Bladder diverticulum. 4. Small pericardial effusion. Anthony Stovall MD Assessment and Plan Problem List: (1) GI bleeding ICD Code: K92.2 Status: Acute (2) Abdominal pain ICD Code: R10.9 Status: Acute (3) Anemia ICD Code: D64.9 Status: Chronic (4) Leukocytosis ICD Code: D72.829 Status: Acute Assessment and Plan Mr. Erazo is a 61-year-old male who presented to the emergency room after experiencing several dark colored stools on 11/07/2016. Stools were heme positive in the ER and the patient is admitted for GI bleed. GI bleed - stool heme + in ER - gastroenterology consulted; assistance appreciated Abdominal/Epigastric pain - CT abdomen/pelvis - atherosclerosis; chronic pancreatitis sequela with calcifications and ductal dilatation seen again; bladder diverticulum; small pericardial effusion - Protonix drip - Morphine 2 mg IV q3h prn pain Anemia, chronic - check serial H&H - transfuse if needed - Dr. Larsen setting up outpatient iron infusions Leukocytosis stress response vs infection - recheck cbc in a.m. - follow results - UA with c/s if indicated - check chest x-ray PA and lateral DVT prophylaxis - SCDs Written by Zulema Jefferson, acting as scribe for Dr. Flower on 11/07/16 at 22:46. .All or portions of this note were transcribed by scribe [Zulema Jefferson]. I, Dr. Maria Victoria Flower personally performed the history, physical exam, and medical decision making; and confirmed the accuracy of the information in the transcribed note. Authenticated by Dr. Maria Victoria Flower on 11/07/16 at 22:46. Discussed Condition With ER physician and patient . Problem Qualifiers (1) GI bleeding: Qualified Code: K92.1 - Gastrointestinal hemorrhage with melena Zulema Jefferson Nov 07, 2016 22:53 Maria Victoria Flower MD Nov 08, 2016 07:33
[2016-11-07 23:41] LABS: BLOOD, URINE NEG (NEG); COMMENT (UR) CULT NOT INDICATED; CULTURE IF INDICATED CULT NOT INDICATED; GLUCOSE,URINE NEG (NEG); KETONE, URINE NEG (NEG); MUCUS URINE FEW /lpf (OCC); NITRITE,URINE NEG (NEG); PH, URINE 7.5 (5.0-8.5); SQUAMOUS EPITHELIAL CELL URINE 1 /hpf (0-5); URINE COLOR YELLOW (YELLW/STRAW)
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
[2016-11-08] VITALS (8 sets, daily range): BP systolic 115–131; BP diastolic 58–69; PULSE 57–87; RESP 17–18; TEMP 96.7–98.7; O2SAT 95–99
--- NOTE | 2016-11-08 00:14 | RADRPT ---
EXAM DATE/TIME: 11/07/2016 23:48 [facility] COMPARISON: CT ABDOMEN & PELVIS W/O CONTRAST, May 30, 2016, 19:42. INDICATIONS : Abdomen pain with rectal bleeding. ORAL CONTRAST: Prescribed oral contrast ingested. RADIATION DOSE: 8.89 CTDIvol (mGy) MEDICAL HISTORY : Cardiovascular disease. Hypertension. Pancreatitis.COPD GERD Prostate Ca SURGICAL HISTORY : Lobectomy. Cholecystectomy.Left hip replacement ENCOUNTER: Initial ACUITY: 1 day PAIN SCALE: 9/10 LOCATION: Bilateral abdomen TECHNIQUE: Volumetric scanning of the abdomen and pelvis was performed. Using automated exposure control and ad justment of the mA and/or kV according to patient size, radiation dose was kept as low as reasonably achievable to obtain optimal diagnostic quality images. FINDINGS: Small pericardial effusion. The patient is status post cholecystectomy. There is dilatation of the pa ncreatic duct and coarse calcifications are seen in the head, neck and uncinate process of the pancre as. This is stable. Adrenal glands, bilateral kidneys, spleen, liver are unremarkable. Atheroscleroti c calcifications of the aorta and iliac vessels are seen. There is a prominent bladder diverticulum o n the left measuring 6 x 3.6 cm in AP and transverse dimension. No evidence of bowel obstruction. Sto mach unremarkable. Appendix normal. No adenopathy or aneurysm. Left total hip arthroplasty with strea k artifact. Lung bases are clear. Osseous structures are intact. CONCLUSION: 1. Atherosclerosis. 2. Chronic pancreatitis sequela with calcifications and ductal dilatation again noted. 3. Bladder diverticulum. 4. Small pericardial effusion. Anthony Stovall MD on November 08, 2016 at 0:10 Board Certified Radiologist. This report was verified electronically.
[2016-11-08] MEDS: MORPHINE SULFATE 4 MG/ML INJ IV PUSH PRN ×6 (01:15→22:46)
[2016-11-08 03:28] LABS: AUTOMATED NEUTROPHIL # 3.6 TH/MM3 (1.8-7.7); BASOPHIL # 0.1 TH/MM3 (0-0.2); BASOPHIL % 1.6 % (0.0-2.0); EOSINOPHIL # 0.5 TH/MM3 (0-0.4); EOSINOPHIL % 7.6 % (0.0-4.0); HEMATOCRIT 30.4 % (39.0-51.0); HEMO FLAGS DIFF FINAL; LYMPH % 30.4 % (9.0-44.0); LYMPHOCYTE # 2.1 TH/MM3 (1.0-4.8); MEAN CELL VOLUME 80.5 FL (80.0-100.0); MEAN CORPUSCULAR HGB CONC 31.1 % (32.0-36.0); MONO % 8.2 % (0.0-8.0); NEUT % 52.2 % (16.0-70.0); PLATELET COUNT 334 TH/MM3 (150-450); RED BLOOD COUNT 3.77 MIL/MM3 (4.50-5.90); RED CELL DISTRIBUTION WIDTH 20.4 % (11.6-17.2); WHITE BLOOD COUNT 6.8 TH/MM3 (4.0-11.0)
[2016-11-08] MEDS: PANTOPRAZOLE INJ 80 MG in SODIUM CHLORIDE 0.9% INJ 100 ML IV SCH ×3 (04:00→21:49)
[2016-11-08 04:03] LABS: BICARBONATE 23.9 MEQ/L (21.0-32.0); POTASSIUM 3.4 MEQ/L (3.5-5.1)
[2016-11-08 07:00] LABS: HEMATOCRIT 29.3 % (39.0-51.0); REVIEW FLAG FINAL
[2016-11-08] MEDS ORDERED: ALPRAZolam 1 MG TAB PO PRN (07:45)
[2016-11-08] MEDS ORDERED: POTASSIUM CHLORIDE 20 MEQ CONTROLLED RELEASE TAB PO ONE (07:45)
[2016-11-08] MEDS ORDERED: ALBUTEROL SULFATE 90 MCG/ACT HFA 8 GM INHALER INH PRN (07:45)
[2016-11-08] MEDS ORDERED: PROMETHAZINE HCL 25 MG TAB PO PRN (07:45)
[2016-11-08] MEDS ORDERED: PILL SPLITTER OTHER PRN (08:30)
--- NOTE | 2016-11-08 08:36 | HHI.PR ---
Subjective Remarks Follow-up for GI bleed. Patient complains of chronic pain in his duodenum from previous radiation injury, no acute changes. He continues to report nausea, no vomiting overnight. No further bowel movements since being admitted. He states it is felt that he's been getting a cold lately, has had a nonproductive cough. Denies any shortness of breath. He's hoping to go for colonoscopy today. Objective Vitals Vital Signs Date Time Temp Pulse Resp B/P Pulse Ox O2 Delivery O2 Flow Rate FiO2 11/08/16 04:40 14 11/08/16 01:05 57 11/08/16 00:31 98.4 87 18 127/68 98 11/07/16 18:34 97 Room Air 11/07/16 16:50 18 11/07/16 15:49 97.7 65 16 119/67 100 Room Air 11/07/16 13:14 97.4 84 20 127/63 100 Room Air Result Diagram: 11/08/16 0645 11/08/16 0251 Imaging Last Impressions Chest X-Ray 11/07/16 0000 Signed Impressions: Service Date/Time: Monday, November 07, 2016 23:31 - CONCLUSION: COPD. Clear lungs. Anthony Stovall MD Abdomen/Pelvis CT 11/07/16 0000 Signed Impressions: Service Date/Time: Monday, November 07, 2016 23:48 - CONCLUSION: 1. Atherosclerosis. 2. Chronic pancreatitis sequela with calcifications and ductal dilatation again noted. 3. Bladder diverticulum. 4. Small pericardial effusion. Anthony Stovall MD Objective Remarks GENERAL: Well-developed well-nourished. In no acute distress. SKIN: Warm and dry. No lesions noted. HEENT: Normocephalic. Pupils equal and round. Mucous membranes pink and moist. CARDIOVASCULAR: Regular rate and rhythm. No murmur appreciated. RESPIRATORY: No accessory muscle use. Clear to auscultation. Breath sounds equal bilaterally. GASTROINTESTINAL: Abdomen soft, mild periumbilical TTP, nondistended. Bowel sounds x4. MUSCULOSKELETAL: No obvious deformities. No clubbing or cyanosis. No edema. NEUROLOGICAL: Awake and alert. No focal neurological deficits. Moves upper and lower extremities spontaneously. Normal speech. PSYCHIATRIC: Appropriate mood and affect; insight and judgment normal. A/P Problem List: (1) GI bleeding ICD Code: K92.2 Status: Acute (2) Abdominal pain ICD Code: R10.9 Status: Chronic (3) Anemia ICD Code: D64.9 Status: Chronic Assessment and Plan Mr. Erazo is a 61-year-old male who presented to the emergency room after experiencing several dark colored stools on 11/07/2016. Stools were heme positive in the ER and the patient is admitted for GI bleed. GI bleed with Hemoccult positive stool in the ED - Protonix drip - IVF - gastroenterology consulted; assistance appreciated Chronic periumbilical abdominal pain Chronic pancreatitis - CT abdomen/pelvis - atherosclerosis; chronic pancreatitis sequela with calcifications and ductal dilatation seen again; bladder diverticulum; small pericardial effusion - Hold home oral pain medication and started on Morphine 2 mg IV q3h prn pain while nothing by mouth - Continue home pancrelipase Acute blood loss anemia on chronic normocytic iron deficiency anemia. Labs reviewed: Hemoglobin 10.1, previously 10.0 on 10/24/16. Hemoglobin decreased to 9.2 overnight. Previous iron studies from 2014 showed iron deficiency. - check serial H&H - transfuse if hemoglobin less than 8 - Dr. Larsen setting up outpatient iron infusions Hypokalemia: Potassium 3.4. Replace orally. Check magnesium. Hypertension: Chronic, stable. Decrease home metoprolol succinate dose for now. Continue tamsulosin, amlodipine, HCTZ. Monitor and adjust meds as needed. COPD: Chronic, stable at this time. Lungs and chest x-ray clear. Continue home inhalers. DVT prophylaxis - SCDs Discharge Planning Follow-up GI recommendations Problem Qualifiers (1) GI bleeding: Qualified Code: K92.1 - Gastrointestinal hemorrhage with melena (2) Abdominal pain: Qualified Code: R10.33 - Periumbilical abdominal pain Gaston Whitaker Nov 08, 2016 08:36
[2016-11-08] MEDS: METOPROLOL SUCCINATE 50 MG EXTENDED RELEASE TAB PO SCH ×2 (08:59→21:23)
[2016-11-08] MEDS: HYDROCHLOROTHIAZIDE 12.5 MG CAP PO SCH (08:59)
[2016-11-08] MEDS: TAMSULOSIN HCL 0.4 MG CAP PO SCH ×2 (08:59→21:23)
[2016-11-08] MEDS: amLODIPine BESYLATE 5 MG TAB PO SCH ×2 (08:59→21:23)
[2016-11-08] MEDS ORDERED: IPRATROPIUM BROMIDE 17 MCG/ACT 12.9 GM INHALER INH SCH (09:00)
[2016-11-08] MEDS: LIPASE/PROTEASE/AMYLASE (6,000/19,000/30,000) CAP PO SCH ×3 (09:30→18:30)
--- NOTE | 2016-11-08 11:23 | PD.CONS ---
HPI History of Present Illness This is a 61 year old male patient with a history of chronic pancreatitis secondary to EtOH abuse, history of GI bleeding secondary to AVMs in the stomach and colon, colon polyps, and history of radiation proctitis who came to the emergency room for evaluation of rectal bleeding. His symptoms began yesterday morning. He reports that he had a normal formed bowel movement around 8:30 and when he went white there was a small amount of red blood on the toilet tissue. He denies any straining or passage of hard stool at that time. About an hour later she had the urge to move his bowels and he reports that he passed a large amount of dark red blood mixed with a small amount of stool. He then went on to have several more episodes and tells me today that he's had a total of 10 episodes of bloody stools. He does have chronic right upper quadrant pain but states that after he started having the bleeding the pain worsened. He describes this as an intermittent dull ache that radiates to his back. It is not related to food intake. He is on chronic pain meds for this at home but states that the Lortab was not helping since the bleeding began. He reports some nausea and vomiting, but states he denies actually look it is so he does not know what color this was. He also reports that although his heartburn has been controlled over the past few months, that he did have an attack of severe heartburn yesterday. His last EGD/colonoscopy (07/27/16)-----> normal esophagus, moderate hiatal hernia, normal duodenum, normal colonoscopy. He denies the use peptic blood thinners or ibuprofen or alcohol. He takes Pepcid 20mg po daily. (Jo Sarkar) PFSH Past Medical History History of GI bleed with colon polypectomies and AVMs History of CVA with right-sided weakness; questionable history of TIAs Hypertension Coronary artery disease History of prostate cancer status post radiation Hyperlipidemia Gastroesophageal reflux Short-term memory-loss History of chronic pancreatitis Hx of alcohol abuse Prominent ampulla AVMs in stomach Rectal ulcers Radiation proctitis Anemia Anxiety GIB Hiatal hernia Prominent ampullae Past Surgical History Capsule Endoscopy Multiple EGD/Colonoscopy Flex Sigmoidoscopy Cardiac catheterization Multiple endoscopies with AVM malformation correction Left hip replacement Cholecystectomy Celiac Plexus Nerve Block (Jo Sarkar) Coded Allergies: Cardura (Verified Allergy, Severe, SOB,CHEST PAIN, 11/07/16) Cipro (Verified Allergy, Severe, RASH, SWOLLEN FACE, 11/07/16) Codeine (Verified Allergy, Severe, 11/07/16) PT DOESNT REMEMBER THE REACTION HE GETS Contrast Media (Verified Allergy, Severe, BLISTERS AND EDEMA AT SITE, 11/07) Imodium (Verified Allergy, Severe, 11/07/16) BROKE OUT IN RASH, AND SWELLING AROUND NECK Nonsteroidal Anti-Inflammatory Agts (Verified Allergy, Severe, 11/07/16) Spironolactone (Verified Allergy, Severe, Bleeding, 11/07/16) Fentanyl (Verified Allergy, Mild, 11/07/16) rash Corticosteroids (Verified Adverse Reaction, Severe, HEART MURMUR, 11/07/16) MRI PRECAUTION (Verified Adverse Reaction, Severe, SHRAPNEL IN C-SPINE per Dr. Smart 10/26/04, 11/07/16) Medications Allergies Coded Allergies Type Severity Reaction Last Updated Verified Cardura Allergy Severe SOB,CHEST PAIN 11/07/16 Yes Cipro Allergy Severe RASH, SWOLLEN FACE 11/07/16 Yes Codeine Allergy Severe 11/07/16 Yes Contrast Media Allergy Severe BLISTERS AND EDEMA AT SITE 11/07/16 Yes Imodium Allergy Severe 11/07/16 Yes Nonsteroidal Anti-Inflammatory Agts Allergy Severe 11/07/16 Yes Spironolactone Allergy Severe Bleeding 11/07/16 Yes Fentanyl Allergy Mild 11/07/16 Yes Corticosteroids Adverse Reaction Severe HEART MURMUR 11/07/16 Yes MRI PRECAUTION Adverse Reaction Severe SHRAPNEL IN C-SPINE per Dr. Smart 10/2611/07/16 Yes Active Scripts Medications Dose Route/Sig Days Date Category Potassium Chloride Powder (Potassium Chloride) 20 Meq Powderpack 20 Meq PO DAILY 11/07/16 Reported Xanax (Alprazolam) 1 Mg Tab 1 Mg PO Q8H PRN 10/24/16 Reported Lortab (Hydrocodone-Acetaminophen) 10-325 Mg Tab 1 Tab PO Q4H PRN 10/24/16 Reported Flomax (Tamsulosin HCl) 0.4 Mg Cap 0.4 Mg PO BID 09/28/16 Reported Hydrochlorothiazide 12.5 Mg Tab 25 Mg PO DAILY 09/28/16 Reported Metoprolol Succinate ER 24 HR (Metoprolol Succinate) 50 Mg Tab 100 Mg PO BID 09/28/16 Reported Soma (Carisoprodol) 350 Mg Tab 350 Mg PO TID PRN 09/28/16 Reported Atrovent HFA 12.9 GM Inh (Ipratropium [place]) 17 Mcg/Act Aer 2 Puff INH TID 09/28/16 Reported Aspirin 81 Mg Tabdr 81 Mg PO EVERY OTHER DAY 09/28/16 Reported Amlodipine (Amlodipine Besylate) 5 Mg Tab 5 Mg PO BID 09/28/16 Reported Proventil Hfa 6.7 GM Inh (Albuterol Sulfate) 90 Mcg/Act Aer 2 Puff INH Q6H PRN 09/28/16 Reported Zenpep (Pancrelipase) 3,000-10,000-16,000 Units Cap 2 Cap PO TIDPC 09/28/16 Reported Pepcid (Famotidine) 20 Mg Tab 20 Mg PO DAILY 09/28/16 Reported Phenergan (Promethazine HCl) 25 Mg Tab 12.5 Mg PO Q6H PRN 09/28/16 Reported Family History Family history of diabetes Brother prostate cancer Brother colon cancer Social History Tobacco: smokes 1 cigarette a day ETOH: former drinker; denies any recent alcohol intake for last 13 months ( Jo Sarkar) Review of Systems Constitutional: COMPLAINS OF: Fatigue, Change in appetite, DENIES: Fever, Chills Respiratory: DENIES: Cough Cardiovascular: DENIES: Chest pain Gastrointestinal: COMPLAINS OF: Abdominal pain, Bloody stools, Diarrhea, Nausea , Vomiting, Heartburn, DENIES: Black stools, Constipation Musculoskeletal: COMPLAINS OF: Back pain Hematologic/lymphatic: DENIES: Bruising Neurologic: DENIES: Headache Psychiatric: DENIES: Confusion (Jo Sarkar) GI Exam Vitals I&O Vital Signs Date Time Temp Pulse Resp B/P Pulse Ox O2 Delivery O2 Flow Rate FiO2 11/08/16 08:41 96.7 63 17 121/69 95 11/08/16 04:40 14 11/08/16 01:05 57 11/08/16 00:31 98.4 87 18 127/68 98 11/07/16 18:34 97 Room Air 11/07/16 16:50 18 11/07/16 15:49 97.7 65 16 119/67 100 Room Air 11/07/16 13:14 97.4 84 20 127/63 100 Room Air Imaging Last Impressions Chest X-Ray 11/07/16 0000 Signed Impressions: Service Date/Time: Monday, November 07, 2016 23:31 - CONCLUSION: COPD. Clear lungs. Anthony Stovall MD Abdomen/Pelvis CT 11/07/16 0000 Signed Impressions: Service Date/Time: Monday, November 07, 2016 23:48 - CONCLUSION: 1. Atherosclerosis. 2. Chronic pancreatitis sequela with calcifications and ductal dilatation again noted. 3. Bladder diverticulum. 4. Small pericardial effusion. Anthony Stovall MD Laboratory Test 11/07/16 11/07/16 11/07/16 11/08/16 16:20 20:55 23:00 02:51 White Blood Count 7.0 TH/MM3 6.8 TH/MM3 Red Blood Count 4.12 MIL/MM3 3.77 MIL/MM3 Hemoglobin 10.1 GM/DL 10.0 GM/DL 9.4 GM/DL Hematocrit 33.3 % 32.3 % 30.4 % Mean Corpuscular Volume 80.9 FL 80.5 FL Mean Corpuscular Hemoglobin 24.5 PG 25.0 PG Mean Corpuscular Hemoglobin 30.3 % 31.1 % Concent Red Cell Distribution Width 20.1 % 20.4 % Platelet Count 365 TH/MM3 334 TH/MM3 Mean Platelet Volume 8.1 FL 7.7 FL Neutrophils (%) (Auto) 53.8 % 52.2 % Lymphocytes (%) (Auto) 30.4 % 30.4 % Monocytes (%) (Auto) 8.5 % 8.2 % Eosinophils (%) (Auto) 6.0 % 7.6 % Basophils (%) (Auto) 1.3 % 1.6 % Neutrophils # (Auto) 3.8 TH/MM3 3.6 TH/MM3 Lymphocytes # (Auto) 2.1 TH/MM3 2.1 TH/MM3 Monocytes # (Auto) 0.6 TH/MM3 0.6 TH/MM3 Eosinophils # (Auto) 0.4 TH/MM3 0.5 TH/MM3 Basophils # (Auto) 0.1 TH/MM3 0.1 TH/MM3 CBC Comment AUTO DIFF DIFF FINAL Differential Comment AUTO DIFF CONFIRMED Platelet Estimate NORMAL Platelet Morphology Comment NORMAL Ovalocytes 1+ Keratocytes OCC Prothrombin Time 10.7 SEC Prothromb Time International 1.0 RATIO Ratio Activated Partial 25.7 SEC Thromboplast Time Sodium Level 139 MEQ/L 137 MEQ/L Potassium Level 4.3 MEQ/L 3.4 MEQ/L Chloride Level 105 MEQ/L 105 MEQ/L Carbon Dioxide Level 25.9 MEQ/L 23.9 MEQ/L Anion Gap 8 MEQ/L 8 MEQ/L Blood Urea Nitrogen 17 MG/DL 15 MG/DL Creatinine 0.79 MG/DL 0.80 MG/DL Estimat Glomerular Filtration 120 ML/MIN 119 ML/MIN Rate Random Glucose 78 MG/DL 126 MG/DL Calcium Level 9.1 MG/DL 8.6 MG/DL Total Bilirubin 0.2 MG/DL Aspartate Amino Transf 15 U/L (AST/SGOT) Alanine Aminotransferase 18 U/L (ALT/SGPT) Alkaline Phosphatase 104 U/L Total Protein 8.0 GM/DL Albumin 3.8 GM/DL Lipase 231 U/L Blood Type B POSITIVE Antibody Screen NEGATIVE Urine Color YELLOW Urine Turbidity CLEAR Urine pH 7.5 Urine Specific B[place]so[place] 1.014 Urine Protein NEG mg/dL Urine Glucose (UA) NEG mg/dL Urine Ketones NEG mg/dL Urine Occult Blood NEG Urine Nitrite NEG Urine Bilirubin NEG Urine Urobilinogen LESS THAN 2.0 MG/DL Urine Leukocyte Esterase NEG Urine RBC LESS THAN 1 /hpf Urine WBC LESS THAN 1 /hpf Urine Squamous Epithelial 1 /hpf Cells Urine Mucus FEW /lpf Microscopic Urinalysis Comment CULT NOT INDICATED Magnesium Level 2.1 MG/DL Test 11/08/16 06:45 Hemoglobin 9.2 GM/DL Hematocrit 29.3 % Physical Examination HEENT: Normocephalic; atraumatic; no jaundice. CHEST: CTA CARDIAC: RRR ABDOMEN: Soft, nondistended, mild ruq tenderness; no hepatosplenomegaly; bowel sounds are present in all four quadrants. EXTREMITIES: No clubbing, cyanosis, or edema. SKIN: Normal; no rash; no jaundice. 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 (Jo Sarkar) Assessment and Plan Plan ASSESSMENT: - GIB, with dark red rectal bleeding. Started on Monday. Had normal formed stool without straining and noticed dark red blood on tissue when he wiped, started having bloody stool- with large amount of dark red blood mixed with small amount of stool an hour later and has since had 10 episodes of this. None today. EGD/colonoscopy (07/27/16)-----> normal esophagus, moderate hiatal hernia, normal duodenum, normal colonoscopy. He denies the use peptic blood thinners or ibuprofen or alcohol. He takes Pepcid 20mg po daily.His HH has remained stable at 9.2/29.3. No active bleeding. - N/V, not having currently. Reports several episodes yesterday, did not see what color this was. - RUQ pain, chronic. He states this is his chronic abdominal pain secondary to his pancreatitis, but worsened and was not relieved with lortab after the bleeding started. He has had Celiac plexus nerve block in past and reports no improvement. - GERD. PPI. On pepcid at home. - Chronic pancreatitis. Takes Creon at home. - Anemia, mild. This has remained stable 9.2/29.3. PLAN: - Plan for egd today - Obtain consents - NPO - PPI - Monitor HH - Transfuse as necessary - Supportive care - Further recommendations to follow based on results of above - Pt seen and examined by Dr. Saenz and myself and this note is written on her behalf (Jo Sarkar) Physician Comments seen, examined agree with above (Vannessa Saenz MD) Jo Sarkar Nov 08, 2016 11:23 Vannessa Saenz MD Nov 08, 2016 16:07
[2016-11-08] MEDS ORDERED: PROPOFOL 200 MG/20 ML AMP IV ONE (12:16)
--- NOTE | 2016-11-08 12:43 | GIPROC ---
[facility] [address] [facility]. [facility], [address] EGD PROCEDURE REPORT EXAM DATE: 11/08/2016 PATIENT NAME: Roberto Erazo MR #: [id number] BIRTHDATE: 1955 ATTENDING: Vannessa Saenz MD ORDER #: [id number] CHOPPER FEEDER: Francisco Vides and Chelsi Williamson STATUS: inpatient INDICATIONS: The patient is a 61 yr old male here for an EGD due to anemia , gi bleeding PROCEDURE PERFORMED: EGD w/ biopsy EGD w/ ablation EGD w/ control of bleeding MEDICATIONS: None and Per Anesthesia. TOPICAL ANESTHETIC: none CONSENT: The patient understands the risks and benefits of the procedure and understands that these risks include, but are not limited to: sedation, allergic reaction, infection, perforation and/or bleeding. Alternative means of evaluation and treatment include, among others: physical exam, x-rays, and/or surgical intervention. The patient elects to proceed with this endoscopic procedure. medical equipment was checked for proper function. Hand hygiene and appropriate measures for infection prevention was taken. After the risks, benefits and alternatives of the procedure were thoroughly explained, Informed consent was verified, confirmed and timeout was successfully executed by the treatment team. The patient was anesthetized with topical anesthesia and the Pentax EG-[id number] endoscope was introduced through the mouth and advanced to the second portion of the duodenum. Retroflexed views revealed a hiatal hernia The gastroscope was then slowly withdrawn and removed. Multiple avm's in duodenum second portion and duodenum-s/p cautery using balltip one in duodenla bulb bleeding postcautery-1 clip applied-no further bleeding gatritis antrum-biopsy duodenitis second portion ad duodenla bulb-biopsy nodule ge junction-biopsy. ADVERSE EVENTS: There were no complications. IMPRESSIONS: 1. Multiple avm's in duodenum second portion and duodenum-s/p cautery using balltip one in duodenla bulb bleeding postcautery-1 clip applied-no further bleeding gatritis antrum-biopsy duodenitis second portion ad duodenla bulb-biopsy nodule ge junction-biopsy 2. Retroflexed views revealed a hiatal hernia RECOMMENDATIONS: 1. Await biopsy results. Biopsy results will not be ready for 7-10 days. If you don't hear from us in two weeks, call our office for biopsy results. 2. Anti-reflux regimen 3. Continue PPI 4. Resume diet if further bleeding , bleeding scan-capsule endosopy op PATIENT CONDITION: stable DISPOSITION: Inpatient REPEAT EXAM: EGD pending biopsy results Vannessa Saenz MD eSigned: Vannessa Saenz MD 11/08/2016 12:43 PM cc: PATIENT NAME: Roberto Erazo MR#: [id number]
[2016-11-08] MEDS: TIOTROPIUM BROMIDE 18 MCG INH INH SCH (14:05)
[2016-11-08] MEDS: SODIUM CHLORIDE 0.9% FLUSH 5 ML FLUSH FLUSH SCH ×2 (14:06→21:00)
[2016-11-08] MEDS: SODIUM CHLOR 0.9% 1000 ML INJ 1,000 ML IV SCH ×3 (17:47→19:00)
[2016-11-08] MEDS: SODIUM CHLORIDE 0.9% FLUSH 5 ML FLUSH FLUSH PRN (22:45)
[2016-11-09] VITALS (8 sets, daily range): BP systolic 106–124; BP diastolic 54–74; PULSE 60–115; RESP 18–20; TEMP 97.6–98.5; O2SAT 96–98
[2016-11-09] MEDS: PANTOPRAZOLE INJ 80 MG in SODIUM CHLORIDE 0.9% INJ 100 ML IV SCH ×3 (02:14→18:03)
[2016-11-09] MEDS: MORPHINE SULFATE 4 MG/ML INJ IV PUSH PRN ×4 (03:07→23:58)
[2016-11-09] MEDS: SODIUM CHLORIDE 0.9% FLUSH 5 ML FLUSH FLUSH PRN ×2 (03:07→23:58)
[2016-11-09] MEDS: SODIUM CHLOR 0.9% 1000 ML INJ 1,000 ML IV SCH ×3 (04:30→15:12)
[2016-11-09 05:46] LABS: POTASSIUM 4.3 MEQ/L (3.5-5.1)
[2016-11-09 08:29] LABS: BASOPHIL # 0.1 TH/MM3 (0-0.2); EOSINOPHIL # 0.5 TH/MM3 (0-0.4); EOSINOPHIL % 7.4 % (0.0-4.0); HEMATOCRIT 32.2 % (39.0-51.0); LYMPH % 16.5 % (9.0-44.0); MEAN CELL VOLUME 79.8 FL (80.0-100.0); MEAN CORPUSCULAR HEMOGLOBIN 24.3 PG (27.0-34.0); MEAN CORPUSCULAR HGB CONC 30.5 % (32.0-36.0); MONO % 10.4 % (0.0-8.0); NEUT % 63.7 % (16.0-70.0); PLATELET COUNT 325 TH/MM3 (150-450); RED BLOOD COUNT 4.03 MIL/MM3 (4.50-5.90); RED CELL DISTRIBUTION WIDTH 21.2 % (11.6-17.2); WHITE BLOOD COUNT 6.3 TH/MM3 (4.0-11.0)
[2016-11-09 08:37] LABS: HEMO FLAGS AUTO DIFF
[2016-11-09] MEDS: METOPROLOL SUCCINATE 50 MG EXTENDED RELEASE TAB PO SCH ×2 (08:37→21:47)
[2016-11-09] MEDS: amLODIPine BESYLATE 5 MG TAB PO SCH ×2 (08:37→21:47)
[2016-11-09] MEDS: HYDROCHLOROTHIAZIDE 12.5 MG CAP PO SCH (08:37)
[2016-11-09] MEDS: TAMSULOSIN HCL 0.4 MG CAP PO SCH ×2 (08:37→21:47)
[2016-11-09] MEDS: LIPASE/PROTEASE/AMYLASE (6,000/19,000/30,000) CAP PO SCH ×3 (08:37→17:59)
[2016-11-09] MEDS: SODIUM CHLORIDE 0.9% FLUSH 5 ML FLUSH FLUSH SCH ×2 (08:38→21:00)
[2016-11-09] MEDS: TIOTROPIUM BROMIDE 18 MCG INH INH SCH (08:44)
--- NOTE | 2016-11-09 09:42 | HHI.PR ---
Subjective Remarks Follow-up for GI bleed. The patient reports continued cramping pain throughout right upper and lower quadrant, also atypical cramping pains across his anterior chest which has been constant since yesterday post procedure. He reports one episode of dark black stool overnight. He reports some nausea but no vomiting. He is able to tolerate oral intake. Denies any lightheadedness or dizziness. Denies fevers or chills. He reports he had a recent unremarkable nuclear stress test two months ago for [facility]. Objective Vitals Vital Signs Date Time Temp Pulse Resp B/P Pulse Ox O2 Delivery O2 Flow Rate FiO2 11/09/16 08:19 97.6 76 18 124/66 98 11/09/16 03:24 97.8 72 18 106/58 98 11/09/16 00:00 98.0 64 18 115/74 98 11/08/16 20:20 66 11/08/16 19:40 98.7 68 18 115/59 97 11/08/16 17:12 98.0 64 17 131/67 99 11/08/16 15:15 97.4 63 18 122/58 97 11/08/16 12:55 64 18 125/69 11/08/16 12:44 70 18 104/65 93 11/08/16 12:34 97.8 71 18 98/63 94 11/08/16 11:09 98.7 59 18 122/66 98 I/O 11/08/16 11/08/16 11/08/16 11/09/16 11/09/16 11/09/16 07:00 15:00 23:00 07:00 15:00 23:00 Intake Total 100 ml Balance 100 ml Intake Other 100 ml Result Diagram: 11/09/16 0813 11/09/16 0449 Imaging Last Impressions Chest X-Ray 11/07/16 0000 Signed Impressions: Service Date/Time: Monday, November 07, 2016 23:31 - CONCLUSION: COPD. Clear lungs. Anthony Stovall MD Abdomen/Pelvis CT 11/07/16 0000 Signed Impressions: Service Date/Time: Monday, November 07, 2016 23:48 - CONCLUSION: 1. Atherosclerosis. 2. Chronic pancreatitis sequela with calcifications and ductal dilatation again noted. 3. Bladder diverticulum. 4. Small pericardial effusion. Anthony Stovall MD Objective Remarks GENERAL: Well-nourished, well-developed male patient in NAD. SKIN: Warm and dry. No rash. HEENT: Normocephalic. Atraumatic. Pupils equal and round. No scleral icterus. No injection or drainage. Mucous membranes pink and moist. NECK: Supple. Trachea midline. CARDIOVASCULAR: Regular rate and rhythm. S1, S2 noted. No murmur appreciated. RESPIRATORY: No accessory muscle use. Clear to auscultation. Breath sounds equal bilaterally. GASTROINTESTINAL: Abdomen soft, non-tender, nondistended. Normoactive bowel sounds x4. MUSCULOSKELETAL: No obvious deformities. Extremities without clubbing, cyanosis , or edema. NEUROLOGICAL: Awake and alert. No obvious cranial nerve deficits. Motor grossly within normal limits. 5/5 muscle strength in bilateral upper and lower extremities. Normal speech. PSYCHIATRIC: Appropriate mood and affect; insight and judgment normal. Medications and IVs Current Medications Medications (Trade) Dose Ordered Sig/Juan José Route Start Time Stop Time Status Last Admin (Protonix Inj/NS Inj) 100 ml @ 10 mls/hr Q10H IV 11/07/16 16:00 11/09/16 02:14 (NS Flush) 2 ml UNSCH PRN FLUSH 11/07/16 19:45 11/09/16 03:07 (NS Flush) 2 ml BID FLUSH 11/07/16 21:00 11/09/16 08:38 (Zofran Inj) 4 mg Q6H PRN IVP 11/07/16 19:45 (Narcan Inj) 0.4 mg UNSCH PRN IV 11/07/16 19:45 (Morphine Inj) 2 mg Q3H PRN IV PUSH 11/07/16 21:15 11/09/16 08:37 (Toprol Xl) 50 mg BID PO 11/08/16 09:00 11/09/16 08:37 (Proair Hfa Inh) 2 puff Q6H PRN INH 11/08/16 07:45 (Xanax) 1 mg Q8H PRN PO 11/08/16 07:45 (Norvasc) 5 mg BID PO 11/08/16 09:00 11/09/16 08:37 (Microzide) 25 mg DAILY PO 11/08/16 09:00 11/09/16 08:37 (Phenergan) 12.5 mg Q6H PRN PO 11/08/16 07:45 (Flomax) 0.4 mg BID PO 11/08/16 09:00 11/09/16 08:37 Amylase/Lipase/ Protease 1 cap 1 cap TIDPC PO 11/08/16 09:30 11/09/16 08:37 (NS 1000 ml Inj) 1,000 ml @ 100 mls/hr Q10H IV 11/08/16 08:30 11/09/16 06:31 (Pill Splitter) 1 ea UNSCH PRN OTHER 11/08/16 08:30 (Spiriva Inh) 18 mcg DAILY INH 11/08/16 09:00 11/09/16 08:44 Urinary Catheter: No Vascular Central Line Catheter: No A/P Problem List: (1) GI bleeding ICD Code: K92.2 Status: Acute (2) Abdominal pain ICD Code: R10.9 Status: Chronic (3) Anemia ICD Code: D64.9 Status: Chronic Assessment and Plan 61-year-old male who presented to the emergency room after experiencing several dark colored stools on 11/07/2016. Stools were heme positive in the ER and the patient is admitted for GI bleed. GI bleed: with Hemoccult positive stool in the ED - On Protonix drip - Supportive treatment with IVF, antiemetics, IV morphine prn - gastroenterology consulted - S/p EGD 11/08 showed multiple AVMs in duodenum s/p cautery and clipping, gastritis, duodenitis, nodule GE junction - diet advanced, patient tolerating well - await further GI recommendations Chronic periumbilical abdominal pain Chronic pancreatitis - CT abd/pelvis - atherosclerosis; chronic pancreatitis sequela with calcifications and ductal dilatation seen again; bladder diverticulum; small pericardial effusion - Continue patient's home Lortab 10/325mg q6h prn pain (verified on [employer] [place] Prescription Drug Monitoring Website). IV morphine prn breakthrough pain. - Continue home pancrelipase Acute blood loss anemia on chronic normocytic iron deficiency anemia. Labs reviewed: Hemoglobin 10.1, previously 10.0 on 10/24/16. Hemoglobin decreased to 9.2 overnight. Previous iron studies from 2014 showed iron deficiency. - monitor serial H&H, currently stable - transfuse if hemoglobin less than 8 - Dr. Chew setting up outpatient iron infusions Hypokalemia: Potassium 3.4. Replace orally. Magnesium 2.1. Repeat K 4.3 today. Resolved. Hypertension: Chronic, stable. Decreased home metoprolol succinate dose for now. Continue tamsulosin, amlodipine, HCTZ. Monitor and adjust meds as needed. COPD: Chronic, stable at this time. Lungs and CXR clear. Continue home inhalers. Atypical Chest Pain: reported today 11/09, started last night per patient, "cramping" pains across bilateral anterior chest. Suspect related to GI. -Check serial cardiac enzymes and EKGs to rule out ACS -Obtain recent nuclear stress test from [facility] approx. 2 months ago, reportedly unremarkable. DVT prophylaxis- SCDs, avoid chemical prophylaxis with GI bleed as above. Discussed with Dr. Yepez. Problem Qualifiers (1) GI bleeding: Qualified Code: K92.1 - Gastrointestinal hemorrhage with melena (2) Abdominal pain: Qualified Code: R10.33 - Periumbilical abdominal pain Brenda Daigle PA-C Nov 09, 2016 09:42
[2016-11-09] MEDS ORDERED: ACETAMINOPHEN/HYDROcodone 325 MG/5 MG TAB PO PRN (09:45)
[2016-11-09] MEDS ORDERED: ACETAMINOPHEN 325 MG TAB PO PRN (09:45)
[2016-11-09 09:58] LABS: SCAN/DIFF AUTO DIFF CONFIRMED
[2016-11-09] MEDS: ACETAMINOPHEN/HYDROcodone 325 MG/10 MG TAB PO PRN ×2 (12:24→21:53)
--- NOTE | 2016-11-09 14:48 | HHI.GIFU ---
Subjective Remarks Resting in bed. He reports that his pain was controlled earlier today but he is concerned now that his pain meds for change that it will no longer be controlled. States she was eating fine earlier today, but he is afraid that with the change in his pain medication he will not be a little tolerate his dinner. He reports that he had a dark stool, but no red blood today. (Jo Sarkar) Objective Vitals I&O Vital Signs Date Time Temp Pulse Resp B/P Pulse Ox O2 Delivery O2 Flow Rate FiO2 11/09/16 12:16 98.5 68 20 119/65 97 11/09/16 08:19 97.6 76 18 124/66 98 11/09/16 03:24 97.8 72 18 106/58 98 11/09/16 00:00 98.0 64 18 115/74 98 11/08/16 20:20 66 11/08/16 19:40 98.7 68 18 115/59 97 11/08/16 17:12 98.0 64 17 131/67 99 11/08/16 15:15 97.4 63 18 122/58 97 I/O 11/08/16 11/08/16 11/08/16 11/09/16 11/09/16 11/09/16 07:00 15:00 23:00 07:00 15:00 23:00 Intake Total 100 ml Balance 100 ml Intake Other 100 ml Laboratory Laboratory Tests Test 11/09/16 11/09/16 11/09/16 04:49 08:13 10:27 Sodium Level 135 Potassium Level 4.3 Chloride Level 106 Carbon Dioxide Level 19.0 Anion Gap 10 Blood Urea Nitrogen 20 Creatinine 0.89 Estimat Glomerular Filtration 105 Rate Random Glucose 99 Calcium Level 8.5 White Blood Count 6.3 Red Blood Count 4.03 Hemoglobin 9.8 Hematocrit 32.2 Mean Corpuscular Volume 79.8 Mean Corpuscular Hemoglobin 24.3 Mean Corpuscular Hemoglobin 30.5 Concent Red Cell Distribution Width 21.2 Platelet Count 325 Mean Platelet Volume 7.7 Neutrophils (%) (Auto) 63.7 Lymphocytes (%) (Auto) 16.5 Monocytes (%) (Auto) 10.4 Eosinophils (%) (Auto) 7.4 Basophils (%) (Auto) 2.0 Neutrophils # (Auto) 4.0 Lymphocytes # (Auto) 1.0 Monocytes # (Auto) 0.7 Eosinophils # (Auto) 0.5 Basophils # (Auto) 0.1 CBC Comment AUTO DIFF Differential Comment AUTO DIFF CONFIRMED Troponin I LESS THAN 0.02 Imaging Last Impressions Chest X-Ray 11/07/16 0000 Signed Impressions: Service Date/Time: Monday, November 07, 2016 23:31 - CONCLUSION: COPD. Clear lungs. Anthony Stovall MD Abdomen/Pelvis CT 11/07/16 0000 Signed Impressions: Service Date/Time: Monday, November 07, 2016 23:48 - CONCLUSION: 1. Atherosclerosis. 2. Chronic pancreatitis sequela with calcifications and ductal dilatation again noted. 3. Bladder diverticulum. 4. Small pericardial effusion. Anthony Stovall MD Physical Exam HEENT: Normocephalic; atraumatic; no jaundice. Throat is clear. NECK: Neck is supple, no JVD, no lymphadenopathy. CHEST: CTA CARDIAC: RRR ABDOMEN: Soft, nondistended, nontender; no hepatosplenomegaly; bowel sounds are present in all four quadrants. EXTREMITIES: No clubbing, cyanosis, or edema. SKIN: Normal; no rash; no jaundice. CAP BLOCKER: No focal deficits; alert and oriented times three. (Jo Sarkar [facility]) Assessment and Plan Plan ASSESSMENT: - GIB, with dark red rectal bleeding. Started on Monday. Had normal formed stool without straining and noticed dark red blood on tissue when he wiped, started having bloody stool- with large amount of dark red blood mixed with small amount of stool an hour later and has since had 10 episodes of this. None today. EGD/colonoscopy (07/27/16)-----> normal esophagus, moderate hiatal hernia, normal duodenum, normal colonoscopy. He denies the use peptic blood thinners or ibuprofen or alcohol. He takes Pepcid 20mg po daily at home. S/P EGD (11/07/16)---> Duodenal AVMs, duodenitis, gastritis, irregular esophageal gastric junction, status post ball tip cautery and Endo Clipping. Protonix gtt. HH remained stable. Currently 9.8/32.2. Tolerating diet. Had a dark stool. No zuleyka red blood. - N/V, IMPROVED. - RUQ pain, chronic. He states this is his chronic abdominal pain secondary to his pancreatitis, but worsened and was not relieved with lortab after the bleeding started. He has had Celiac plexus nerve block in past and reports no improvement. States this has been controlled, but he is concerned that with his changes in his pain meds, this will no longer be controlled. - GERD. PPI. - Chronic pancreatitis. Takes Creon at home. - Anemia, mild. HH Stable. PLAN: - DARRELL - Protonix Gtt - Okay to d/c protonix gtt in am - Protonix 40mg po BID in am - Monitor HH - Transfuse as necessary - Supportive care - If HH remains stable and no significant bleeding, okay to d/c in am with outpatient fu. - Further recommendations to follow based on results of above - Pt seen and examined by Dr. Saenz and myself and this note is written on her behalf (Jo Sarkar) Physician Comments seen, examined agree with above (Vannessa Saenz MD) Jo Sarkar Nov 09, 2016 14:48 Vannessa Saenz MD Nov 09, 2016 16:54
[2016-11-09 16:45] LABS: CREATINE KINASE 118 U/L (39-308)
[2016-11-09 23:46] LABS: CREATINE KINASE 112 U/L (39-308)
[2016-11-10] MEDS: SODIUM CHLOR 0.9% 1000 ML INJ 1,000 ML IV SCH ×3 (00:30→08:23)
[2016-11-10 00:33] VITALS: BP 116/62; PULSE 67; RESP 18; TEMP 98.4; O2SAT 97
[2016-11-10] MEDS: ACETAMINOPHEN/HYDROcodone 325 MG/10 MG TAB PO PRN (04:14)
[2016-11-10 04:43] VITALS: BP 104/52; PULSE 67; RESP 18; TEMP 98.4; O2SAT 93
[2016-11-10] MEDS: MORPHINE SULFATE 4 MG/ML INJ IV PUSH PRN (06:52)
[2016-11-10] MEDS: SODIUM CHLORIDE 0.9% FLUSH 5 ML FLUSH FLUSH PRN (06:52)
[2016-11-10 08:02] LABS: AUTOMATED NEUTROPHIL # 2.8 TH/MM3 (1.8-7.7); BASOPHIL % 0.9 % (0.0-2.0); EOSINOPHIL # 0.6 TH/MM3 (0-0.4); HEMATOCRIT 29.2 % (39.0-51.0); LYMPHOCYTE # 1.4 TH/MM3 (1.0-4.8); MEAN CELL VOLUME 79.7 FL (80.0-100.0); MEAN CORPUSCULAR HEMOGLOBIN 24.9 PG (27.0-34.0); MEAN CORPUSCULAR HGB CONC 31.3 % (32.0-36.0); MONO % 8.4 % (0.0-8.0); NEUT % 53.7 % (16.0-70.0); PLATELET COUNT 307 TH/MM3 (150-450); RED BLOOD COUNT 3.67 MIL/MM3 (4.50-5.90); RED CELL DISTRIBUTION WIDTH 20.6 % (11.6-17.2); WHITE BLOOD COUNT 5.2 TH/MM3 (4.0-11.0)
[2016-11-10 08:10] LABS: HEMO FLAGS AUTO DIFF
[2016-11-10] MEDS ORDERED: PANT40TA3 PO (08:11)
--- NOTE | 2016-11-10 08:12 | HHI.DCPOC ---
Discharge Care Plan Diagnosis: (1) GI bleeding (2) Chronic abdominal pain (3) Chronic pancreatitis Goals to Promote Your Health * To prevent worsening of your condition and complications * To maintain your health at the optimal level Directions to Meet Your Goals Take your medications as prescribed Follow your dietary instruction Follow activity as directed Keep your appointments as scheduled Take your immunizations and boosters as scheduled If your symptoms worsen call your PCP, if no PCP go to Urgent Care Center or Emergency Room Smoking is Dangerous to Your Health. Avoid second hand smoke Call the 24-hour hour crisis hotline for domestic abuse at Brenda Daigle PA-C Nov 10, 2016 08:12 Daniella Coreas MD Nov 10, 2016 14:29
[2016-11-10 08:17] VITALS: BP 108/67; PULSE 61; RESP 20; TEMP 97.6; O2SAT 99
[2016-11-10] MEDS: TAMSULOSIN HCL 0.4 MG CAP PO SCH (08:22)
[2016-11-10] MEDS: METOPROLOL SUCCINATE 50 MG EXTENDED RELEASE TAB PO SCH (08:22)
[2016-11-10] MEDS: HYDROCHLOROTHIAZIDE 12.5 MG CAP PO SCH (08:22)
[2016-11-10] MEDS: LIPASE/PROTEASE/AMYLASE (6,000/19,000/30,000) CAP PO SCH (08:22)
[2016-11-10] MEDS: TIOTROPIUM BROMIDE 18 MCG INH INH SCH (08:22)
[2016-11-10] MEDS: amLODIPine BESYLATE 5 MG TAB PO SCH (08:22)
[2016-11-10] MEDS: SODIUM CHLORIDE 0.9% FLUSH 5 ML FLUSH FLUSH SCH (08:24)
[2016-11-10 08:42] LABS: KERATOCYTES OCC (NORMAL); SCAN/DIFF AUTO DIFF CONFIRMED
[2016-11-10] MEDS ORDERED: PANTOPRAZOLE SOD 40 MG DELAYED RELEASE TAB PO SCH (09:00)
--- NOTE | 2016-11-10 09:20 | HHI.DS ---
cc: Vannessa Saenz MD; Dr. Pérez Discharge Summary Admission Date Nov 07, 2016 at 6:23 pm Discharge Date: Nov 10, 2016 Admitting Diagnosis GI Bleed (1) GI bleeding ICD Code: K92.2 Diagnosis: Principal (2) Abdominal pain ICD Code: R10.9 Diagnosis: Principal (3) Anemia ICD Code: D64.9 Diagnosis: Secondary (4) AVM (arteriovenous malformation) ICD Code: Q27.30 Diagnosis: Principal (5) Chronic abdominal pain ICD Code: G89.29 Diagnosis: Secondary (6) Chest pain ICD Code: R07.9 Diagnosis: Secondary Procedures EGD 11/08/[address] Saenz; showed multiple AVMs and duodenum status post cautery and one clip applied, no further bleeding, gastritis in the antrum, duodenitis, nodule at GE junction, hiatal hernia Brief History - From Admission Mr. Erazo is a 61-year-old male with a past medical history of CVA with left hand residual weakness, TIA, CAD, CHF, hypertension, COPD, prostate cancer status post radiation treatment, and right lung empyema requiring VATS and decortication in January 2015 who presented to the emergency room after experiencing several dark colored stools on 11/07/2016. Stools were heme positive in the ER and the patient is admitted for GI bleed. The patient is seen in the CDU. He states that on 11/07/2016, he had a normal BM at 9:00 in the morning. Following that stool, he proceeded to have 10 bowel movements colored dark red/maroon. Initially, the stools were soft but then proceeded to get softer with each subsequent stool. He reports a history of hiatal hernia and rectal ulcers but denies hemorrhoids. He states he's also been experiencing some epigastric and rectal pain with the symptoms. He denies nausea, vomiting, fever. He reports chronic chills. He has a history of anemia and states that Dr. Larsen (heme/onc) is setting up iron infusions for him to undergo as an outpatient. He also reports unintentional weight loss of 26 pounds over the last month. Denies diabetes, cad, seizures, thyroid dysfunction. . CBC/BMP: 11/10/16 0650 11/09/16 0449 Significant Findings Laboratory Tests Test 11/07/16 11/07/16 11/07/16 11/08/16 16:20 20:55 23:00 02:51 Red Blood Count 4.12 MIL/MM3 3.77 MIL/MM3 (4.50-5.90) (4.50-5.90) Hemoglobin 10.1 GM/DL 10.0 GM/DL 9.4 GM/DL (13.0-17.0) (13.0-17.0) (13.0-17.0) Hematocrit 33.3 % 32.3 % 30.4 % (39.0-51.0) (39.0-51.0) (39.0-51.0) Mean Corpuscular Hemoglobin 24.5 PG 25.0 PG (27.0-34.0) (27.0-34.0) Mean Corpuscular Hemoglobin 30.3 % 31.1 % Concent (32.0-36.0) (32.0-36.0) Red Cell Distribution Width 20.1 % 20.4 % (11.6-17.2) (11.6-17.2) Monocytes (%) (Auto) 8.5 % (0.0-8.0) 8.2 % (0.0-8.0) Eosinophils (%) (Auto) 6.0 % (0.0-4.0) 7.6 % (0.0-4.0) Ovalocytes 1+ (NORMAL) Urine Mucus FEW /lpf (OCC) Eosinophils # (Auto) 0.5 TH/MM3 (0-0.4) Potassium Level 3.4 MEQ/L (3.5-5.1) Random Glucose 126 MG/DL (74-106) Test 11/08/16 11/09/16 11/09/16 11/09/16 06:45 04:49 08:13 10:27 Hemoglobin 9.2 GM/DL 9.8 GM/DL (13.0-17.0) (13.0-17.0) Hematocrit 29.3 % 32.2 % (39.0-51.0) (39.0-51.0) Sodium Level 135 MEQ/L (136-145) Carbon Dioxide Level 19.0 MEQ/L (21.0-32.0) Blood Urea Nitrogen 20 MG/DL (7-18) Red Blood Count 4.03 MIL/MM3 (4.50-5.90) Mean Corpuscular Volume 79.8 FL (80.0-100.0) Mean Corpuscular Hemoglobin 24.3 PG (27.0-34.0) Mean Corpuscular Hemoglobin 30.5 % Concent (32.0-36.0) Red Cell Distribution Width 21.2 % (11.6-17.2) Monocytes (%) (Auto) 10.4 % (0.0-8.0) Eosinophils (%) (Auto) 7.4 % (0.0-4.0) Eosinophils # (Auto) 0.5 TH/MM3 (0-0.4) Troponin I LESS THAN 0.02 NG/ML (0.02-0.05) Test 11/09/16 11/09/16 11/10/16 16:08 22:59 06:50 Troponin I LESS THAN 0.02 LESS THAN 0.02 NG/ML NG/ML (0.02-0.05) (0.02-0.05) Red Blood Count 3.67 MIL/MM3 (4.50-5.90) Hemoglobin 9.1 GM/DL (13.0-17.0) Hematocrit 29.2 % (39.0-51.0) Mean Corpuscular Volume 79.7 FL (80.0-100.0) Mean Corpuscular Hemoglobin 24.9 PG (27.0-34.0) Mean Corpuscular Hemoglobin 31.3 % Concent (32.0-36.0) Red Cell Distribution Width 20.6 % (11.6-17.2) Monocytes (%) (Auto) 8.4 % (0.0-8.0) Eosinophils (%) (Auto) 11.0 % (0.0-4.0) Eosinophils # (Auto) 0.6 TH/MM3 (0-0.4) Imaging Last Impressions Chest X-Ray 11/07/16 0000 Signed Impressions: Service Date/Time: Monday, November 07, 2016 23:31 - CONCLUSION: COPD. Clear lungs. Anthony Stovall MD Abdomen/Pelvis CT 11/07/16 0000 Signed Impressions: Service Date/Time: Monday, November 07, 2016 23:48 - CONCLUSION: 1. Atherosclerosis. 2. Chronic pancreatitis sequela with calcifications and ductal dilatation again noted. 3. Bladder diverticulum. 4. Small pericardial effusion. Anthony Stovall MD PE at Discharge GENERAL: Well-nourished, well-developed male patient in NAD. SKIN: Warm and dry. No rash. HEENT: Normocephalic. Atraumatic. Pupils equal and round. No scleral icterus. No injection or drainage. Mucous membranes pink and moist. NECK: Supple. Trachea midline. CARDIOVASCULAR: Regular rate and rhythm. S1, S2 noted. No murmur appreciated. RESPIRATORY: No accessory muscle use. Clear to auscultation. Breath sounds equal bilaterally. GASTROINTESTINAL: Abdomen soft, non-tender, nondistended. Normoactive bowel sounds x4. MUSCULOSKELETAL: No obvious deformities. Extremities without clubbing, cyanosis , or edema. NEUROLOGICAL: Awake and alert. No obvious cranial nerve deficits. Motor grossly within normal limits. 5/5 muscle strength in bilateral upper and lower extremities. Normal speech. PSYCHIATRIC: Appropriate mood and affect; insight and judgment normal. Pt update on day of discharge The patient reports continued pain consistent with his chronic abdominal pain/ pancreatitis, no acute worsening. No melena or hematochezia overnight. He is tolerating oral intake. Denies fevers/chills. No chest pains today. He is agreeable to discharge. Hospital Course 61-year-old male who presented to the emergency room after experiencing several dark colored stools on 11/07/2016. Stools were heme positive in the ER and the patient is admitted for GI bleed. GI bleed: with Hemoccult positive stool in the ED - On Protonix drip - Supportive treatment with IVF, antiemetics, IV morphine prn - gastroenterology consulted - S/p EGD 11/08 showed multiple AVMs in duodenum s/p cautery and clipping, gastritis, duodenitis, nodule GE junction - diet advanced, patient tolerating well - cleared for discharge by GI - Hgb stable at 9.1 today - no further episodes of bleeding Chronic periumbilical abdominal pain Chronic pancreatitis - CT abd/pelvis - atherosclerosis; chronic pancreatitis sequela with calcifications and ductal dilatation seen again; bladder diverticulum; small pericardial effusion - Continue patient's home Lortab 10/325mg q6h prn pain (verified on [employer] [place] Prescription Drug Monitoring Website). IV morphine prn breakthrough pain. - Continue home pancrelipase Acute blood loss anemia on chronic normocytic iron deficiency anemia. Labs reviewed: Hemoglobin 10.1, previously 10.0 on 10/24/16. Hemoglobin decreased to 9.2 overnight. Previous iron studies from 2014 showed iron deficiency. - monitor serial H&H, currently stable - transfuse if hemoglobin less than 8 - Dr. Larsen setting up outpatient iron infusions Hypokalemia: Potassium 3.4. Replace orally. Magnesium 2.1. Repeat K 4.3 today. Resolved. Hypertension: Chronic, stable. Decreased home metoprolol succinate dose for now. Continue tamsulosin, amlodipine, HCTZ. Monitor and adjust meds as needed. COPD: Chronic, stable at this time. Lungs and CXR clear. Continue home inhalers. Atypical Chest Pain: reported today 11/09, started last night per patient, "cramping" pains across bilateral anterior chest. Suspect related to GI. -ACS ruled out with negative serial cardiac enzymes and EKGs -Obtain recent nuclear stress test from [facility] approx. 2 months ago, reportedly unremarkable. -no further episodes of chest pain, strongly suspect related to GI DVT prophylaxis- SCDs, avoid chemical prophylaxis with GI bleed as above. Written by Brenda Daigle, acting as scribe for Dr. Coreas on 11/10/16 at 09:19. Pt Condition on Discharge: Stable Discharge Disposition: Discharge Home Discharge Time: <= 30 minutes Discharge Instructions DIET: Follow Instructions for: Heart Healthy Diet Activities you can perform: Regular-No Restrictions Follow up Referrals: Gastroenterology - 1 Week with Vannessa Saenz MD PCP Follow-up - 1 Week with Ravin Pérez D.o. New Medications: Pantoprazole (Pantoprazole) 40 Mg Tab 40 MG PO Q12HR gastritis #60 TAB Continued Medications: Albuterol 6.7 GM Inh (Proventil Hfa 6.7 GM Inh) 90 Mcg/Act Aer 2 PUFF INH Q6H PRN SHORTNESS OF BREATH #1 Ref 0 INHALER Alprazolam (Xanax) 1 Mg Tab 1 MG PO Q8H PRN ANXIETY Ref 0 TAB Amlodipine (Amlodipine) 5 Mg Tab 5 MG PO BID Blood Pressure Management #30 Ref 0 TAB Aspirin (Aspirin) 81 Mg Tabdr 81 MG PO EVERY OTHER DAY TAB Hydrochlorothiazide (Hydrochlorothiazide) 12.5 Mg Tab 25 MG PO DAILY #30 Ref 0 TAB Hydrocodone-Acetaminophen (Lortab) 10-325 Mg Tab 1 TAB PO Q4H PRN PAIN #7 Ref 0 TAB (This prescription has been renewed) Ipratropium HFA 12.9 GM Inh (Atrovent HFA 12.9 GM Inh) 17 Mcg/Act Aer 2 PUFF INH TID #1 Ref 0 INHALER Metoprolol Succinate ER 24 HR (Metoprolol Succinate ER 24 HR) 50 Mg Tab 100 MG PO BID #30 Ref 0 TAB Pancrelipase (Zenpep) 3,000-10,000-16,000 Units Cap 2 CAP PO TIDPC Digestive Aid #90 Ref 0 CAP Potassium Chloride Powder (Potassium Chloride Powder) 20 Meq Powderpack 20 MEQ PO DAILY Electrolyte Replacement #30 Ref 0 PKT Promethazine (Phenergan) 25 Mg Tab 12.5 MG PO Q6H PRN Nausea/Vomiting Ref 0 TAB Tamsulosin (Flomax) 0.4 Mg Cap 0.4 MG PO BID Manage Prostate Problems #30 Ref 0 CAP Discontinued Medications: Carisoprodol (Soma) 350 Mg Tab 350 MG PO TID PRN PAIN Ref 0 TAB Famotidine (Pepcid) 20 Mg Tab 20 MG PO DAILY #60 Ref 0 TAB Additional Information All or portions of this note were transcribed by desirae Daigle. I, Dr. Daniella Coreas personally performed the history, physical exam, and medical decision making; and confirmed the accuracy of the information in the transcribed note. Authenticated by Dr. Daniella Coreas on 11/10/16 at 14:29. Brenda Daigle PA-C Nov 10, 2016 09:20 Daniella Coreas MD Nov 10, 2016 14:29
[2016-11-10] MEDS ORDERED: HYDR-3535 PO (09:22)
[2016-11-10 09:27] VITALS: PULSE 62
--- NOTE | 2016-11-10 21:07 | EKG ---
Date Performed: 11/09/2016 Time Performed: 16:16:10 PTAGE: 61 years EKG: Sinus rhythm When compared to previous tracing, sinus rate has increased. NORMAL ECG PREVIOUS TRACING : 10/24/2016 09.22 DOCTOR: Arnaud Parrish Interpretating Date/Time 11/10/2016 21:06:02
== END 2016-11-10 10:22 | disposition home or self-care (01) ==
LOC: NEPC 13:13 → NEDA 18:23 → INTOOBSV 18:23 → NEPGCP 23:55
PROVIDERS: ADMIT Hospitalist; ATTEND Hospitalist
DX: K55.21 Angiodysplasia of colon with hemorrhage (principal); K29.70 Gastritis, unspecified, without bleeding; K29.80 Duodenitis without bleeding; K44.9 Diaphragmatic hernia without obstruction or gangrene; K86.1 Other chronic pancreatitis; D62 Acute posthemorrhagic anemia; D50.9 Iron deficiency anemia, unspecified; E87.6 Hypokalemia; K21.0 Gastro-esophageal reflux disease with esophagitis; J45.909 Unspecified asthma, uncomplicated; I25.10 Atherosclerotic heart disease of native coronary artery without angina pectoris; I11.0 Hypertensive heart disease with heart failure; H40.9 Unspecified glaucoma; J43.9 Emphysema, unspecified; D72.829 Elevated white blood cell count, unspecified; F17.210 Nicotine dependence, cigarettes, uncomplicated; R07.89 Other chest pain; F41.9 Anxiety disorder, unspecified; I25.2 Old myocardial infarction; E78.5 Hyperlipidemia, unspecified; Z96.642 Presence of left artificial hip joint; Z85.46 Personal history of malignant neoplasm of prostate; Z79.82 Long term (current) use of aspirin; Z88.5 Allergy status to narcotic agent; Z88.8 Allergy status to other drugs, medicaments and biological substances; Z88.1 Allergy status to other antibiotic agents; Z91.041 Radiographic dye allergy status; Z92.3 Personal history of irradiation; Z86.73 Personal history of transient ischemic attack (TIA), and cerebral infarction without residual deficits
CPT/HCPCS: 71020; 74176; 80048; 80053; 81001; 82550; 83690; 83735; 84484; 85014; 85018; 85025; 85610; 85730; 86850; 86900; 86901; 88305; 88312; 93005; 96365; 96375; C9113; G0378; J2270; J2405; J7030; Q9963

== ENCOUNTER 2016-11-20 17:45 | Emergency (ER) | payer MEDICAID ==
[~2016-11-20] VITALS: Ht 177.8 cm; Wt 77.0 kg
[~2016-11-20 17:45] MED LIST changes: -FAMO1TAB37 PO; +PANT40TA3 PO; +POTA10PO PO; -SOMA350T PO
[2016-11-20 17:46] VITALS: BP 144/62; PULSE 84; RESP 16; TEMP 97.6; O2SAT 95
[2016-11-20 18:09] VITALS: BP 140/63; PULSE 76; RESP 18; TEMP 98.1; O2SAT 99
--- NOTE | 2016-11-20 18:27 | PD ---
HPI Chief Complaint: Abdominal Pain Time Seen by Provider: 18:21 Travel History International Travel<30 days: No Contact w/Intl Traveler<30days: No Traveled to known affect area: No History of Present Illness HPI 61-year-old male presents to the emergency department for evaluation of right upper quadrant abdominal pain, left hip pain, chronic chest pain. Patient states that he has had dark stools, however, he also had an iron infusion by Dr. Larsen 2 weeks ago. Patient states he has chronic abdominal pain. According to chart, he has chronic pancreatitis. He was just discharged on November 10, 2016 for abdominal pain, GI bleed. Patient was scoped by Dr. Saenz at that time. He denies any vomiting. He states he has had 3 episodes of diarrhea. He is unsure if there is any blood in his stool. He also states his left hip pain. He denies any trauma to me, but did tell the nurse in triage that he fell 3 weeks ago. However, he does deny this injury to me. He states that he had a pathological fracture 12 years ago to his left hip and this pain feels similar. Patient denies any fevers. He does report chest pain which is unchanged for 3 years and is chronic in nature. The patient reports history of prostate cancer, anemia, left hip fracture, hypertension, [place], chronic pancreatitis, cholecystectomy. Patient's PCP is Dr. Pérez. GI physician is Dr. Saenz. Urologist is Dr. Cuellar and his oncologist is Dr. Larsen. [facility] Past Medical History Hx Anticoagulant Therapy: Yes Anemia: Yes Arthritis: Yes Asthma: No Autoimmune Disease: No Blood Disorders: No Anxiety: Yes Depression: No Heart Rhythm Problems: Yes (PATIENT STATES "HEART OCCASIONALLY BEATS OUT OF RHYTHM" MO) Cancer: Yes (PROSTATE) Cardiac Catheterization: Yes Cardiovascular Problems: Yes High Cholesterol: No Chest Pain: Yes Congestive Heart Failure: Yes COPD: No Cerebrovascular Accident: Yes (TIA ) Coronary Artery Disease: Yes Diabetes: No Diminished Hearing: No Endocrine: No Gastrointestinal Disorders: Yes (GI BLEED, IBS) GERD: Yes Genitourinary: Yes (RETENTION FROM PROSTATE ENLARGEMENT) Headaches: Yes Hiatal Hernia: Yes Heparin Induced Thrombocytopen: No Hypertension: Yes 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") Implanted Vascular Access Dvce: Yes Musculoskeletal: Yes (LEG WEAKNESS) Neurologic: Yes (CVA, TIA) Psychiatric: No Reproductive: No Respiratory: Yes (PNA, COPD) Immunizations Current: Yes Myocardial Infarction: Yes Pancreatitis: Yes Radiation Therapy: Yes Sleep Apnea: Yes Thyroid Disease: No Ulcer: Yes PNEUMOCCOCAL Vaccine (Year): 1 Past Surgical History Abdominal Surgery: Yes (REPAIR LEAKING BLOOD VESSEL IN RECTUM X3, POLYP REMOVED ) AICD: No Arteriovenous Shunt: No Body Medical Devices: TITANIUM MIKE IN LEFT HIP, BULLET IN RIGHT SHOULDER Cardiac Surgery: Yes (CATH) Cholecystectomy: Yes Ear Surgery: No Endocrine Surgery: No Eye Surgery: No Genitourinary Surgery: No Gynecologic Surgery: No Insulin Pump: No Joint Replacement: Yes (LEFT HIP-TOTAL, LEFT ROTATOR CUFF SURGERY) Oral Surgery: No Pacemaker: No Thoracic Surgery: Yes (lung reattachment) Other Surgery: Yes (LEFT HIP REPLACEMENT, GALLBLADDER REMOVAL) Family History Family Myocardial Infarction: No Social History Alcohol Use: No Tobacco Use: Yes (1 CIGARETTE A DAY) Substance Use: No Allergies-Medications (Allergen,Severity, Reaction): Coded Allergies: Cardura (Verified Allergy, Severe, SOB,CHEST PAIN, 11/20/16) Cipro (Verified Allergy, Severe, RASH, SWOLLEN FACE, 11/20/16) Codeine (Verified Allergy, Severe, 11/20/16) PT DOESNT REMEMBER THE REACTION HE GETS Contrast Media (Verified Allergy, Severe, BLISTERS AND EDEMA AT SITE, ) Imodium (Verified Allergy, Severe, 11/20/16) BROKE OUT IN RASH, AND SWELLING AROUND NECK Nonsteroidal Anti-Inflammatory Agts (Verified Allergy, Severe, 11/20/16) Spironolactone (Verified Allergy, Severe, Bleeding, 11/20/16) Fentanyl (Verified Allergy, Mild, 11/20/16) rash Corticosteroids (Verified Adverse Reaction, Severe, HEART MURMUR, 11/20/16) MRI PRECAUTION (Verified Adverse Reaction, Severe, SHRAPNEL IN C-SPINE per Dr. Smart 10/26/04, 11/20/16) Reported Meds & Prescriptions Reported Meds & Active Scripts Active Lortab (Hydrocodone-Acetaminophen) 10-325 Mg Tab 1 Tab PO Q4H PRN Reported Potassium Chloride Powder (Potassium Chloride) 20 Meq Powderpack 20 Meq PO DAILY Xanax (Alprazolam) 1 Mg Tab 1 Mg PO Q8H PRN Flomax (Tamsulosin HCl) 0.4 Mg Cap 0.4 Mg PO BID Hydrochlorothiazide 12.5 Mg Tab 25 Mg PO DAILY Metoprolol Succinate ER 24 HR (Metoprolol Succinate) 50 Mg Tab 100 Mg PO BID Atrovent HFA 12.9 GM Inh (Ipratropium [place]) 17 Mcg/Act Aer 2 Puff INH TID Aspirin 81 Mg Tabdr 81 Mg PO EVERY OTHER DAY Amlodipine (Amlodipine Besylate) 5 Mg Tab 5 Mg PO BID Proventil Hfa 6.7 GM Inh (Albuterol Sulfate) 90 Mcg/Act Aer 2 Puff INH Q6H PRN Zenpep (Pancrelipase) 3,000-10,000-16,000 Units Cap 2 Cap PO TIDPC Phenergan (Promethazine HCl) 25 Mg Tab 12.5 Mg PO Q6H PRN Review of Systems Except as stated in HPI: all other systems reviewed are Neg Physical Exam Narrative GENERAL: Well-nourished, well-developed male patient ambulatory. Afebrile., SKIN: Focused skin assessment warm/dry. HEAD: Normocephalic. Atraumatic. EYES: No scleral icterus. No injection or drainage. NECK: Supple, trachea midline. No JVD or lymphadenopathy. CARDIOVASCULAR: Regular rate and rhythm without murmurs, gallops, or rubs. RESPIRATORY: Breath sounds equal bilaterally. No accessory muscle use. Lungs sounds are clear to auscultation. GASTROINTESTINAL: Abdomen soft and nondistended. He has tenderness over the right upper quadrant. MUSCULOSKELETAL: No cyanosis, or edema. Patient has tenderness over left hip. BACK: Nontender without obvious deformity. No CVA tenderness. RECTAL EXAM: No masses or tenderness, stool is brown. Hemoccult is negative. Rectal exam is done with LINO Hernandez, at bedside. Data Data Last Documented VS Vital Signs Date Time Temp Pulse Resp B/P Pulse Ox O2 Delivery O2 Flow Rate FiO2 11/20/16 19:02 70 12 137/65 98 Room Air 11/20/16 18:09 98.1 Orders Complete Blood Count With Diff (11/20/16 18:18) Comprehensive Metabolic Panel (11/20/16 18:18) Lipase (11/20/16 18:18) Urinalysis - C+S If Indicated (11/20/16 18:18) Iv Access Insert/Monitor (11/20/16 18:18) Ecg Monitoring (11/20/16 18:18) Oximetry (11/20/16 18:18) Sodium Chloride 0.9% Flush (Ns Flush) (11/20/16 18:30) Electrocardiogram (11/20/16 18:18) Creatine Kinase (Cpk) (11/20/16 18:18) Troponin I (11/20/16 18:18) Hip, Uni(Ap&Lat) W Ap Pelvis (11/20/16 ) Ondansetron Inj (Zofran Inj) (11/20/16 18:30) Morphine Inj (Morphine Inj) (11/20/16 18:30) Potassium Chloride (Kcl) (11/20/16 19:30) Labs Laboratory Tests Test 11/20/16 18:23 White Blood Count 9.1 TH/MM3 Red Blood Count 3.89 MIL/MM3 Hemoglobin 9.7 GM/DL Hematocrit 32.0 % Mean Corpuscular Volume 82.2 FL Mean Corpuscular Hemoglobin 24.9 PG Mean Corpuscular Hemoglobin 30.2 % Concent Red Cell Distribution Width 21.3 % Platelet Count 293 TH/MM3 Mean Platelet Volume 7.2 FL Neutrophils (%) (Auto) 71.2 % Lymphocytes (%) (Auto) 17.0 % Monocytes (%) (Auto) 5.6 % Eosinophils (%) (Auto) 4.3 % Basophils (%) (Auto) 1.9 % Neutrophils # (Auto) 6.5 TH/MM3 Lymphocytes # (Auto) 1.5 TH/MM3 Monocytes # (Auto) 0.5 TH/MM3 Eosinophils # (Auto) 0.4 TH/MM3 Basophils # (Auto) 0.2 TH/MM3 CBC Comment AUTO DIFF Differential Comment AUTO DIFF CONFIRMED Platelet Estimate NORMAL Platelet Morphology Comment NORMAL Ovalocytes 1+ Urine Color COLORLESS Urine Turbidity CLEAR Urine pH 6.5 Urine Specific [place] 1.004 Urine Protein NEG mg/dL Urine Glucose (UA) NEG mg/dL Urine Ketones NEG mg/dL Urine Occult Blood NEG Urine Nitrite NEG Urine Bilirubin NEG Urine Urobilinogen LESS THAN 2.0 MG/DL Urine Leukocyte Esterase NEG Urine WBC 1 /hpf Urine Mucus FEW /lpf Microscopic Urinalysis Comment CULT NOT INDICATED Sodium Level 136 MEQ/L Potassium Level 3.3 MEQ/L Chloride Level 101 MEQ/L Carbon Dioxide Level 25.9 MEQ/L Anion Gap 9 MEQ/L Blood Urea Nitrogen 14 MG/DL Creatinine 0.95 MG/DL Estimat Glomerular Filtration 97 ML/MIN Rate Random Glucose 114 MG/DL Calcium Level 9.3 MG/DL Total Bilirubin 0.3 MG/DL Aspartate Amino Transf 18 U/L (AST/SGOT) Alanine Aminotransferase 22 U/L (ALT/SGPT) Alkaline Phosphatase 104 U/L Total Creatine Kinase 116 U/L Troponin I LESS THAN 0.02 NG/ML Total Protein 8.0 GM/DL Albumin 4.0 GM/DL Lipase 90 U/L [facility] Medical Decision Making Medical Screen Exam Complete: Yes Emergency Medical Condition: Yes Medical Record Reviewed: Yes Interpretation(s) Last Impressions Hip and Pelvis X-Ray 11/20/16 0000 Signed Impressions: Service Date/Time: Sunday, November 20, 2016 18:42 - CONCLUSION: 1. No acute findings. Left hip replacement. Akira Mari MD Differential Diagnosis Chronic abdominal pain versus chronic chest pain versus contusion versus hip fracture Narrative Course 61-year-old male with past medical history of chronic pancreatitis, chronic chest pain, previous has logical fracture left hip presents complaining of right upper quadrant abdominal pain, left hip pain. He also reports chronic chest pain, but states this is unchanged. IV access established. EKG, CBC, CMP , lipase, CK, troponin are ordered and pending. X-ray of the left hip with pelvis is ordered and pending. EKG shows sinus rhythm, rate 72, no acute ST changes. CBC shows hemoglobin 9.7 hematocrit 32.0 which is stable for patient according to previous labs, WBC is 9.1. CMP shows hypokalemia of 3.3, no acute changes. Lipase is 90. CK is 116. Troponin is less than 0.02. UA shows no evidence of infection. X-ray of the left hip with pelvis shows no acute findings. Left hip replacement. Patient is instructed to follow up with his primary care physician. He verbalizes understanding and agreement. He is to return for any acute, worsening of symptoms. Diagnosis Primary Impression: Chronic abdominal pain Referrals: Primary Care Physician 2 days Patient Instructions: Abdominal Pain (ED), General Instructions Additional Instructions: Follow-up with your primary care physician. Return to the emergency department for any acute worsening of symptoms. Med/Other Pt SpecificInfo: No Change to Meds Disposition: 01 DISCHARGE HOME Condition: Stable Rosana Morataya Nov 20, 2016 18:27
[2016-11-20] MEDS ORDERED: ONDANSETRON HCL 4 MG/2 ML VIAL IV PUSH ONE (18:30)
[2016-11-20] MEDS ORDERED: SODIUM CHLORIDE 0.9% FLUSH 10 ML FLUSH IV FLUSH PRN (18:30)
[2016-11-20] MEDS ORDERED: MORPHINE SULFATE 4 MG/ML INJ IV PUSH ONE (18:30)
[2016-11-20 18:47] LABS: BLOOD, URINE NEG (NEG); COMMENT (UR) CULT NOT INDICATED; CULTURE IF INDICATED CULT NOT INDICATED; GLUCOSE,URINE NEG (NEG); KETONE, URINE NEG (NEG); MUCUS URINE FEW /lpf (OCC); NITRITE,URINE NEG (NEG); PH, URINE 6.5 (5.0-8.5); URINE COLOR COLORLESS (YELLW/STRAW)
[2016-11-20 18:48] LABS: AUTOMATED NEUTROPHIL # 6.5 TH/MM3 (1.8-7.7); BASOPHIL # 0.2 TH/MM3 (0-0.2); BASOPHIL % 1.9 % (0.0-2.0); EOSINOPHIL # 0.4 TH/MM3 (0-0.4); EOSINOPHIL % 4.3 % (0.0-4.0); LYMPHOCYTE # 1.5 TH/MM3 (1.0-4.8); MEAN CELL VOLUME 82.2 FL (80.0-100.0); MEAN CORPUSCULAR HEMOGLOBIN 24.9 PG (27.0-34.0); MEAN CORPUSCULAR HGB CONC 30.2 % (32.0-36.0); MONO % 5.6 % (0.0-8.0); NEUT % 71.2 % (16.0-70.0); PLATELET COUNT 293 TH/MM3 (150-450); RED BLOOD COUNT 3.89 MIL/MM3 (4.50-5.90); RED CELL DISTRIBUTION WIDTH 21.3 % (11.6-17.2); WHITE BLOOD COUNT 9.1 TH/MM3 (4.0-11.0)
[2016-11-20 18:49] LABS: HEMO FLAGS AUTO DIFF
[2016-11-20 18:52] VITALS: RESP 18; O2SAT 98
[2016-11-20 18:57] LABS: OVALOCYTES 1+ (NORMAL); PLATELET ESTIMATE SMEAR NORMAL (NORMAL); PLATELET MORPHOLOGY NORMAL (NORMAL); SCAN/DIFF AUTO DIFF CONFIRMED
[2016-11-20 19:02] VITALS: BP 137/65; PULSE 70; RESP 12; O2SAT 98
[2016-11-20 19:07] LABS: ANION GAP 9 MEQ/L (5-15); AST (GOT) 18 U/L (15-37); BICARBONATE 25.9 MEQ/L (21.0-32.0); BLOOD UREA NITROGEN 14 MG/DL (7-18); CHLORIDE 101 MEQ/L (98-107); GLOMERULAR FILTRATION RATE 97 ML/MIN (>89); POTASSIUM 3.3 MEQ/L (3.5-5.1); SODIUM (NA) 136 MEQ/L (136-145)
[2016-11-20 19:12] LABS: ALKALINE PHOSPHATASE 104 U/L (45-117); ALT (GPT) 22 U/L (12-78); CREATINE KINASE 116 U/L (39-308); TOTAL BILIRUBIN ADULT 0.3 MG/DL (0.2-1.0)
[2016-11-20] MEDS ORDERED: POTASSIUM CHLORIDE 20 MEQ CONTROLLED RELEASE TAB PO ONE (19:30)
--- NOTE | 2016-11-20 20:05 | RADRPT ---
EXAM DATE/TIME: 11/20/2016 18:42 [facility] COMPARISON: No previous studies available for comparison. INDICATIONS : Fall 3 weeks ago, pain left hip and left lower back. MEDICAL HISTORY : Carcinoma, prostatic. Hypertension SURGICAL HISTORY : Prostatectomy. Total left hip ENCOUNTER: Initial ACUITY: 3 weeks PAIN SCORE: 10/10 LOCATION: Left hip. FINDINGS: Examination of the left hip was performed with AP Pelvis. Postoperative left hip replacement. No acut e fracture or dislocation. CONCLUSION: 1. No acute findings. Left hip replacement. Akira Mari MD on November 20, 2016 at 20:02 Board Certified Radiologist. This report was verified electronically.
--- NOTE | 2016-11-21 10:37 | EKG ---
Date Performed: 11/20/2016 Time Performed: 18:52:05 PTAGE: 61 years EKG: Sinus rhythm NORMAL ECG INTERPRETATION BASED ON A DEFAULT AGE OF 40 YEARS PREVIOUS TRACING : 11/09/2016 16.16 DOCTOR: Matthew Jackson Interpretating Date/Time 11/21/2016 10:34:19
== END 2016-11-20 22:01 | disposition home or self-care (01) ==
LOC: NEPE 17:45
DX: R10.11 Right upper quadrant pain (principal); G89.29 Other chronic pain; M25.552 Pain in left hip; I50.9 Heart failure, unspecified; I25.10 Atherosclerotic heart disease of native coronary artery without angina pectoris; I10 Essential (primary) hypertension; I25.2 Old myocardial infarction; F17.210 Nicotine dependence, cigarettes, uncomplicated; Z85.46 Personal history of malignant neoplasm of prostate
CPT/HCPCS: 73502; 80053; 81001; 82550; 83690; 84484; 85025; 93005; 96374; 96375; 99285; J2270; J2405

== ENCOUNTER 2016-11-29 16:42 | Emergency (ER) | payer MEDICAID ==
[~2016-11-29] VITALS: Ht 177.8 cm; Wt 80.0 kg
[~2016-11-29 16:42] MED LIST changes: -PANT40TA3 PO
[2016-11-29 16:46] VITALS: BP 128/68; PULSE 79; RESP 20; TEMP 97.7; O2SAT 99
--- NOTE | 2016-11-29 16:48 | PD ---
Physical Exam Time Seen by Provider: 16:45 Narrative 61 year old male presents with RLQ abdominal pain for, diarrhea, "black" stools , nausea for 3 days, as well as L leg pain. L leg pain woke from sleep 2 weeks ago. Hx gi bleed with melena in past. VSS Seen at triage desk, awaiting bed placement. Data Data Last Documented VS Vital Signs Date Time Temp Pulse Resp B/P Pulse Ox O2 Delivery O2 Flow Rate FiO2 11/29/16 16:46 97.7 79 20 128/68 99 Room Air [facility] Medical Record Reviewed: Yes Supervised Visit with HARPER: Yes Srinivasa Coombs Nov 29, 2016 16:48
[2016-11-29] MEDS ORDERED: SODIUM CHLOR 0.9% 1000 ML INJ 1,000 ML IV SCH (17:34)
[2016-11-29 17:35] VITALS: RESP 18; O2SAT 98
[2016-11-29] MEDS ORDERED: MORPHINE SULFATE 4 MG/ML INJ IV PUSH ONE ×2 (17:45→20:15)
[2016-11-29] MEDS ORDERED: ONDANSETRON HCL 4 MG/2 ML VIAL IV PUSH ONE (17:45)
[2016-11-29] MEDS ORDERED: PANTOPRAZOLE SODIUM 40 MG VIAL IVP ONE (17:45)
[2016-11-29 17:55] VITALS: RESP 17
--- NOTE | 2016-11-29 17:58 | PD ---
HPI Chief Complaint: Abdominal Pain Time Seen by Provider: 17:50 Travel History International Travel<30 days: No Contact w/Intl Traveler<30days: No Traveled to known affect area: No History of Present Illness HPI 61-year-old male that presents to the ED for evaluation of right abdominal pain with diarrhea as well as left lower leg and hip pain. Patient reports that he has a history of prostate cancer which appears to be currently in remission as well as a history of GI bleed and follows with Dr. Saenz. The patient his been having diarrhea and abdominal cramping for the past 3 days. He denies any fevers chills or sweats. Per patient most of the pain is on the right side on the right lower as well as the right upper quadrant. Per patient he has his gallbladder removed. He does have a history of chronic pancreatitis. Patient states that the pain has been ongoing for 3 days and he used to have some diarrhea which became darker today. Patient does have a history of anemia and has had GI bleeds in the past having require EGD which was done actually last month. She denies any chest pain or shortness of breath. Per patient the pain on the left hip has been ongoing for about 2 weeks which woke him up. Patient was initially seen here for something like this last week and was told that everything looked fine. Patient had no fractures. Per patient he is concerned that he may have the prostate cancer coming back. Per patient the pain is in the left hip and radiates down. Patient has not been taking anything for this. Patient takes no blood thinners. Per patient the pain is severe 8 out of 10. Crampy on the abdomen and sharp on the left hip. Per patient he went to see his urologist today Dr. Cuellar who evaluated him today for this pelvic pain and is following him up to make sure is not the prostate cancer. PFSH Past Medical History Hx Anticoagulant Therapy: Yes Anemia: Yes Arthritis: Yes Asthma: No Autoimmune Disease: No Blood Disorders: No Anxiety: Yes Depression: No Heart Rhythm Problems: Yes (PATIENT STATES "HEART OCCASIONALLY BEATS OUT OF RHYTHM" PA) Cancer: Yes (PROSTATE) Cardiac Catheterization: Yes Cardiovascular Problems: Yes High Cholesterol: No Chest Pain: Yes Congestive Heart Failure: Yes COPD: No Cerebrovascular Accident: Yes (TIA ) Coronary Artery Disease: Yes Diabetes: No Diminished Hearing: No Endocrine: No Gastrointestinal Disorders: Yes (GI BLEED, IBS) GERD: Yes Genitourinary: Yes (RETENTION FROM PROSTATE ENLARGEMENT) Headaches: Yes Hiatal Hernia: Yes Heparin Induced Thrombocytopen: No Hypertension: Yes 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") Implanted Vascular Access Dvce: Yes Musculoskeletal: Yes (LEG WEAKNESS) Neurologic: Yes (CVA, TIA) Psychiatric: No Reproductive: No Respiratory: Yes (PNA, COPD) Immunizations Current: Yes Myocardial Infarction: Yes Pancreatitis: Yes Radiation Therapy: Yes Sleep Apnea: Yes Thyroid Disease: No Ulcer: Yes PNEUMOCCOCAL Vaccine (Year): 1 Past Surgical History Abdominal Surgery: Yes (REPAIR LEAKING BLOOD VESSEL IN RECTUM X3, POLYP REMOVED ) AICD: No Arteriovenous Shunt: No Body Medical Devices: TITANIUM MIKE IN LEFT HIP, BULLET IN RIGHT SHOULDER Cardiac Surgery: Yes (CATH) Cholecystectomy: Yes Ear Surgery: No Endocrine Surgery: No Eye Surgery: No Genitourinary Surgery: No Gynecologic Surgery: No Insulin Pump: No Joint Replacement: Yes (LEFT HIP-TOTAL, LEFT ROTATOR CUFF SURGERY) Oral Surgery: No Pacemaker: No Thoracic Surgery: Yes (lung reattachment) Other Surgery: Yes (LEFT HIP REPLACEMENT, GALLBLADDER REMOVAL) Social History Alcohol Use: No Tobacco Use: Yes (1 CIGARETTE A DAY) Substance Use: No Allergies-Medications (Allergen,Severity, Reaction): Coded Allergies: Cardura (Verified Allergy, Severe, SOB,CHEST PAIN, 11/29/16) Cipro (Verified Allergy, Severe, RASH, SWOLLEN FACE, 11/29/16) Codeine (Verified Allergy, Severe, sob, 11/29/16) Contrast Media (Verified Allergy, Severe, BLISTERS AND EDEMA AT SITE, 11/29) Imodium (Verified Allergy, Severe, rash, 11/29/16) BROKE OUT IN RASH, AND SWELLING AROUND NECK Nonsteroidal Anti-Inflammatory Agts (Verified Allergy, Severe, 11/29/16) Spironolactone (Verified Allergy, Severe, Bleeding, 11/29/16) Fentanyl (Verified Allergy, Intermediate, rash, 11/29/16) Corticosteroids (Verified Adverse Reaction, Severe, HEART MURMUR, 11/29/16) MRI PRECAUTION (Verified Adverse Reaction, Severe, SHRAPNEL IN C-SPINE per Dr. Smart 10/26/04, 11/29/16) Reported Meds & Prescriptions Reported Meds & Active Scripts Active Lortab (Hydrocodone-Acetaminophen) 5-325 Mg Tab 1 Tab PO Q6H PRN Lortab (Hydrocodone-Acetaminophen) 10-325 Mg Tab 1 Tab PO Q4H PRN Reported Potassium Chloride ER (Potassium Chloride) 20 Meq Tab 20 Meq PO DAILY Xanax (Alprazolam) 1 Mg Tab 1 Mg PO Q8H PRN Flomax (Tamsulosin HCl) 0.4 Mg Cap 0.4 Mg PO BID Hydrochlorothiazide 12.5 Mg Tab 25 Mg PO DAILY Metoprolol Succinate ER 24 HR (Metoprolol Succinate) 50 Mg Tab 100 Mg PO BID Atrovent HFA 12.9 GM Inh (Ipratropium [place]) 17 Mcg/Act Aer 2 Puff INH TID Aspirin 81 Mg Tabdr 81 Mg PO EVERY OTHER DAY Amlodipine (Amlodipine Besylate) 5 Mg Tab 5 Mg PO BID Proventil Hfa 6.7 GM Inh (Albuterol Sulfate) 90 Mcg/Act Aer 2 Puff INH Q6H PRN Zenpep (Pancrelipase) 3,000-10,000-16,000 Units Cap 2 Cap PO TIDPC Phenergan (Promethazine HCl) 25 Mg Tab 12.5 Mg PO Q6H PRN Review of Systems Except as stated in HPI: all other systems reviewed are Neg Physical Exam Narrative GENERAL: SKIN: Warm and dry. HEAD: Atraumatic. Normocephalic. EYES: Pupils equal and round. No scleral icterus. No injection or drainage. ENT: No nasal bleeding or discharge. Mucous membranes pink and moist. Tongue is midline. No uvula deviation. NECK: Trachea midline. No JVD. CARDIOVASCULAR: Regular rate and rhythm. No murmurs, S3, S4. RESPIRATORY: No accessory muscle use. Clear to auscultation. Breath sounds equal bilaterally. GASTROINTESTINAL: Abdomen soft, patient does have some tenderness to palpation with deep palpation in the right upper as well as the right lower quadrant, nondistended. Hepatic and splenic margins not palpable. MUSCULOSKELETAL: Extremities without clubbing, cyanosis, or edema. No obvious deformities. Full range of motion of the upper and lower extremities bilaterally. Pupils pulses bilaterally. NEUROLOGICAL: Awake and alert. No obvious cranial nerve deficits. Motor grossly within normal limits. Five out of 5 muscle strength in the arms and legs. Normal speech. PSYCHIATRIC: Appropriate mood and affect; insight and judgment normal. Data Data Last Documented VS Vital Signs Date Time Temp Pulse Resp B/P Pulse Ox O2 Delivery O2 Flow Rate FiO2 11/29/16 17:55 17 11/29/16 17:35 98 Room Air 11/29/16 16:46 97.7 79 128/68 Orders Complete Blood Count With Diff (11/29/16 17:34) Comprehensive Metabolic Panel (11/29/16 17:34) Lipase (11/29/16 17:34) Lactic Acid (11/29/16 17:34) Prothrombin Time / Inr (Pt) (11/29/16 17:34) Act Partial Throm Time (Ptt) (11/29/16 17:34) Urinalysis - C+S If Indicated (11/29/16 17:34) Iv Access Insert/Monitor (11/29/16 17:34) Ecg Monitoring (11/29/16 17:34) Oximetry (11/29/16 17:34) Morphine Inj (Morphine Inj) (11/29/16 17:45) Pantoprazole Inj (Protonix Inj) (11/29/16 17:45) Sodium Chlor 0.9% 1000 Ml Inj (Ns 1000 M (11/29/16 17:34) Ondansetron Inj (Zofran Inj) (11/29/16 17:45) Ct Abd/Pel W/O Iv Contrast (11/29/16 17:42) Cath For Specimen (11/29/16 18:43) Morphine Inj (Morphine Inj) (11/29/16 20:15) Labs Laboratory Tests Test 11/29/16 11/29/16 18:00 19:00 White Blood Count 7.6 TH/MM3 Red Blood Count 4.08 MIL/MM3 Hemoglobin 10.6 GM/DL Hematocrit 34.3 % Mean Corpuscular Volume 84.1 FL Mean Corpuscular Hemoglobin 26.0 PG Mean Corpuscular Hemoglobin 30.9 % Concent Red Cell Distribution Width 23.3 % Platelet Count 328 TH/MM3 Mean Platelet Volume 7.6 FL Neutrophils (%) (Auto) 66.8 % Lymphocytes (%) (Auto) 21.0 % Monocytes (%) (Auto) 5.1 % Eosinophils (%) (Auto) 5.8 % Basophils (%) (Auto) 1.3 % Neutrophils # (Auto) 5.1 TH/MM3 Lymphocytes # (Auto) 1.6 TH/MM3 Monocytes # (Auto) 0.4 TH/MM3 Eosinophils # (Auto) 0.4 TH/MM3 Basophils # (Auto) 0.1 TH/MM3 CBC Comment DIFF FINAL Differential Comment Prothrombin Time 10.8 SEC Prothromb Time International 1.0 RATIO Ratio Activated Partial 24.6 SEC Thromboplast Time Sodium Level 138 MEQ/L Potassium Level 4.2 MEQ/L Chloride Level 105 MEQ/L Carbon Dioxide Level 25.5 MEQ/L Anion Gap 8 MEQ/L Blood Urea Nitrogen 18 MG/DL Creatinine 0.93 MG/DL Estimat Glomerular Filtration 100 ML/MIN Rate Random Glucose 101 MG/DL Lactic Acid Level 0.8 mmol/L Calcium Level 9.1 MG/DL Total Bilirubin 0.3 MG/DL Aspartate Amino Transf 13 U/L (AST/SGOT) Alanine Aminotransferase 16 U/L (ALT/SGPT) Alkaline Phosphatase 87 U/L Total Protein 7.5 GM/DL Albumin 3.7 GM/DL Lipase 80 U/L Urine Color YELLOW Urine Turbidity CLEAR Urine pH 7.0 Urine Specific [place] 1.024 Urine Protein TRACE mg/dL Urine Glucose (UA) NEG mg/dL Urine Ketones NEG mg/dL Urine Occult Blood NEG Urine Nitrite NEG Urine Bilirubin NEG Urine Urobilinogen LESS THAN 2.0 MG/DL Urine Leukocyte Esterase NEG Urine RBC LESS THAN 1 /hpf Urine WBC LESS THAN 1 /hpf Urine Mucus FEW /lpf Microscopic Urinalysis Comment CULT NOT INDICATED MDM Medical Decision Making Medical Screen Exam Complete: Yes Emergency Medical Condition: Yes Medical Record Reviewed: Yes Interpretation(s) CBC & BMP Diagram 11/29/16 18:00 LFTs and lipase WNL UA negative COags WNL Last Impressions Abdomen/Pelvis CT 11/29/16 3602 Signed Impressions: Service Date/Time: Tuesday, November 29, 2016 18:21 - CONCLUSION: 1. Stable appearance of the pancreas with dilatation of the pancreatic duct and stable calcifications. 2. Small to moderate pericardial effusion again noted. 3. Status post cholecystectomy. 4. The bowel gas pattern appears unremarkable on this noncontrast exam without oral contrast. 5. Stable bladder diverticula. Bala Franco MD Differential Diagnosis Acute abdominal pain versus abdominal pain versus gastroenteritis versus gastritis versus GI bleed versus mass versus UTI versus acute on chronic pain versus chronic pain Narrative Course 61-year-old male that presents to the ED for evaluation of abdominal pain. Patient was properly examined and was found to have signs and symptoms consistent appears to be right lower quadrant abdominal pain with left hip pain. Unclear etiology. Patient is had imaging done recently that was negative for the head. At this time, labs and imaging to make sure patient doesn't have any acute disease as he does have a history of pancreatitis as well as GI bleed in the past. Patient also has a history of prostate cancer. He is in agreement with plan. Patient was given IV pain medication with some relief. Labs and imaging showed no sign of acute disease. Patient does feel somewhat improved. Do not see any need for further imaging or testing. This time I recommend outpatient follow-up for the pelvic pain. Abdominal pain appears to be chronic. At this time I will treat patient's pain with Lortab. From the way he is describing his left pelvic pain he does appear to be sciatica to me as per patient it radiates down the leg. CT of the abdomen and pelvis did not show any sign of fracture or deformity or mass. The patient is concerned for prostate cancer coming back and do recommend that he continues to follow with Dr. Bernabe who should be able to better assess for this if this is his main concern. He agrees with plan. Follow with PCP. See ED for worsening symptoms. Procedures EKG Prior to Arrival: No HemaPrompt Point of Care Internal Pos. & Neg. Controls: Passed Fecal Specimen Occult Blood: Negative Diagnosis Primary Impression: Abdominal pain Qualified Code: R10.11 - Right upper quadrant abdominal pain Additional Impression: Pain in joint involving left pelvic region and thigh Patient Instructions: Narcotic given in the ED, General Instructions Additional Instructions: Take medications as prescribed. Follow-up with PCP. See ED for any worsening symptoms. Do not drink or drive while taking pain medication. Apply ice or heat as needed for pain Your blood work and CT did not show any sign of acute disease today. No sign of tumor. F/u with Dr Cuellar. Med/Other Pt SpecificInfo: Prescription(s) given Scripts Hydrocodone-Acetaminophen (Lortab)5-325 Mg Tab1 Tab PO Q6H PRN (PAIN) #15 TAB Prov:Cecille Mike DO 11/29/16 Disposition: 01 DISCHARGE HOME Condition: Stable Julius Mondragon Nov 29, 2016 17:58
[2016-11-29] MEDS ORDERED: POTA-163 PO (18:12)
[2016-11-29 18:20] LABS: AUTOMATED NEUTROPHIL # 5.1 TH/MM3 (1.8-7.7); BASOPHIL # 0.1 TH/MM3 (0-0.2); BASOPHIL % 1.3 % (0.0-2.0); EOSINOPHIL # 0.4 TH/MM3 (0-0.4); EOSINOPHIL % 5.8 % (0.0-4.0); HEMATOCRIT 34.3 % (39.0-51.0); HEMO FLAGS DIFF FINAL; LYMPHOCYTE # 1.6 TH/MM3 (1.0-4.8); MEAN CELL VOLUME 84.1 FL (80.0-100.0); MEAN CORPUSCULAR HGB CONC 30.9 % (32.0-36.0); MONO % 5.1 % (0.0-8.0); NEUT % 66.8 % (16.0-70.0); PLATELET COUNT 328 TH/MM3 (150-450); RED BLOOD COUNT 4.08 MIL/MM3 (4.50-5.90); RED CELL DISTRIBUTION WIDTH 23.3 % (11.6-17.2); WHITE BLOOD COUNT 7.6 TH/MM3 (4.0-11.0)
[2016-11-29 18:33] LABS: APTT (PATIENT) 24.6 SEC (24.3-30.1); PROTHROMBIN TIME - PATIENT 10.8 SEC (9.8-11.6)
--- NOTE | 2016-11-29 18:36 | RADRPT ---
EXAM DATE/TIME: 11/29/2016 18:21 [facility] COMPARISON: CT ABDOMEN & PELVIS W/O CONTRAST, November 07, 2016, 23:48. INDICATIONS : Right lower quadrant pain with nausea and diarrhea for three days. History of pancreatitis. ORAL CONTRAST: No oral contrast ingested. RADIATION DOSE: 7.53 CTDIvol (mGy) MEDICAL HISTORY : Hernia, hiatal. Carcinoma, prostate. Gastroesophageal reflux disease. SURGICAL HISTORY : Cholecystectomy. Bilateral hip replacement. ENCOUNTER: Initial ACUITY: 3 days PAIN SCALE: 8/10 LOCATION: Right lower quadrant TECHNIQUE: Volumetric scanning of the abdomen and pelvis was performed. Using automated exposure control and ad justment of the mA and/or kV according to patient size, radiation dose was kept as low as reasonably achievable to obtain optimal diagnostic quality images. FINDINGS: LOWER LUNGS: The visualized lower lungs are clear. A small to moderate pericardial effusion is again noted. LIVER: Homogeneous density without lesion. There is no dilation of the biliary tree. The patient is status post cholecystectomy. SPLEEN: Normal size without lesion. PANCREAS: The pancreatic duct remains dilated greatest in the region of the head measuring up to 1 cm. There ar e calcifications in the head of the pancreas as well. These findings are not significantly changed. KIDNEYS: Normal in size and shape. There is no mass, stone, or hydronephrosis. ADRENAL GLANDS: Within normal limits. VASCULAR: There is no aortic aneurysm. BOWEL/MESENTERY: The stomach, small bowel, and colon demonstrate no acute abnormality. There is no free intraperitone al air or fluid. ABDOMINAL WALL: Within normal limits. RETROPERITONEUM: There is no lymphadenopathy. BLADDER: No wall thickening or mass. A prominent diverticulum is again noted along left side of the bladder. REPRODUCTIVE: Within normal limits. INGUINAL: There is no lymphadenopathy or hernia. MUSCULOSKELETAL: Status post left hip arthroplasty with streak artifact. CONCLUSION: 1. Stable appearance of the pancreas with dilatation of the pancreatic duct and stable calcifications . 2. Small to moderate pericardial effusion again noted. 3. Status post cholecystectomy. 4. The bowel gas pattern appears unremarkable on this noncontrast exam without oral contrast. 5. Stable bladder diverticula. Bala Franco MD on November 29, 2016 at 18:30 Board Certified Radiologist. This report was verified electronically.
--- NOTE | 2016-11-29 18:43 | PD ---
Data Data Last Documented VS Vital Signs Date Time Temp Pulse Resp B/P Pulse Ox O2 Delivery O2 Flow Rate FiO2 11/29/16 17:55 17 11/29/16 17:35 98 Room Air 11/29/16 16:46 97.7 79 128/68 Orders Complete Blood Count With Diff (11/29/16 17:34) Comprehensive Metabolic Panel (11/29/16 17:34) Lipase (11/29/16 17:34) Lactic Acid (11/29/16 17:34) Prothrombin Time / Inr (Pt) (11/29/16 17:34) Act Partial Throm Time (Ptt) (11/29/16 17:34) Urinalysis - C+S If Indicated (11/29/16 17:34) Iv Access Insert/Monitor (11/29/16:34) Ecg Monitoring (11/29/16 17:34) Oximetry (11/29/16 17:34) Morphine Inj (Morphine Inj) (11/29/16 17:45) Pantoprazole Inj (Protonix Inj) (11/29/16 17:45) Sodium Chlor 0.9% 1000 Ml Inj (Ns 1000 M (11/29/16 17:34) Ondansetron Inj (Zofran Inj) (11/29/16 17:45) Ct Abd/Pel W/O Iv Contrast (11/29/16 17:42) Labs Laboratory Tests Test 11/29/16 18:00 White Blood Count 7.6 TH/MM3 Red Blood Count 4.08 MIL/MM3 Hemoglobin 10.6 GM/DL Hematocrit 34.3 % Mean Corpuscular Volume 84.1 FL Mean Corpuscular Hemoglobin 26.0 PG Mean Corpuscular Hemoglobin 30.9 % Concent Red Cell Distribution Width 23.3 % Platelet Count 328 TH/MM3 Mean Platelet Volume 7.6 FL Neutrophils (%) (Auto) 66.8 % Lymphocytes (%) (Auto) 21.0 % Monocytes (%) (Auto) 5.1 % Eosinophils (%) (Auto) 5.8 % Basophils (%) (Auto) 1.3 % Neutrophils # (Auto) 5.1 TH/MM3 Lymphocytes # (Auto) 1.6 TH/MM3 Monocytes # (Auto) 0.4 TH/MM3 Eosinophils # (Auto) 0.4 TH/MM3 Basophils # (Auto) 0.1 TH/MM3 CBC Comment DIFF FINAL Differential Comment Prothrombin Time 10.8 SEC Prothromb Time International 1.0 RATIO Ratio Activated Partial 24.6 SEC Thromboplast Time MDM Supervised Visit with HARPER: Yes Narrative Course I, Dr. Marcano, have reviewed the advance practice practioner's documentation and am in agreement, met with the patient face to face, made the diagnosis, and the medical decision making was done by me. *My assessment and Findings: 61-year-old male with history of pancreatitis, GI bleed, cholecystectomy here with complaint of abdominal pain and diarrhea, primarily right sided. States that his stools have been slightly darker than normal. No zuleyka blood. Symptoms have improved for 3 days. On exam patient is well-appearing, minimal reproducible tenderness to palpation of the right lower quadrant but no rebound or guarding. Hemoccult negative per PA. Differential includes appendicitis, bowel obstruction, UTI, GI bleed, less likely hepatobiliary pathology, recurrent prostate cancer, UTI. Will obtain laboratory workup and imaging of the abdomen and pelvis for disposition to home if negative. Rocío Marcano MD Nov 29, 2016 18:43
[2016-11-29 18:50] LABS: ANION GAP 8 MEQ/L (5-15); BICARBONATE 25.5 MEQ/L (21.0-32.0); BLOOD UREA NITROGEN 18 MG/DL (7-18); CHLORIDE 105 MEQ/L (98-107); GLOMERULAR FILTRATION RATE 100 ML/MIN (>89); POTASSIUM 4.2 MEQ/L (3.5-5.1); SODIUM (NA) 138 MEQ/L (136-145)
[2016-11-29 18:53] LABS: ALKALINE PHOSPHATASE 87 U/L (45-117); ALT (GPT) 16 U/L (12-78); AST (GOT) 13 U/L (15-37); TOTAL BILIRUBIN ADULT 0.3 MG/DL (0.2-1.0)
[2016-11-29 19:22] LABS: BLOOD, URINE NEG (NEG); COMMENT (UR) CULT NOT INDICATED; CULTURE IF INDICATED CULT NOT INDICATED; GLUCOSE,URINE NEG (NEG); KETONE, URINE NEG (NEG); MUCUS URINE FEW /lpf (OCC); NITRITE,URINE NEG (NEG); URINE COLOR YELLOW (YELLW/STRAW)
[2016-11-29] MEDS ORDERED: HYDR-3533 PO ×2 (19:48→19:50)
[2016-11-29 20:17] VITALS: BP 138/67
== END 2016-11-29 20:32 | disposition home or self-care (01) ==
LOC: NEPC 16:42
DX: R10.11 Right upper quadrant pain (principal); R19.7 Diarrhea, unspecified; R11.0 Nausea; D64.9 Anemia, unspecified; I10 Essential (primary) hypertension; Z72.0 Tobacco use; Z79.01 Long term (current) use of anticoagulants
CPT/HCPCS: 74176; 80053; 81001; 83605; 83690; 85025; 85610; 85730; 96361; 96374; 96375; 96376; 99284; C9113; J2270; J2405; J7030

== ENCOUNTER 2016-12-04 17:11 | Emergency (ER) | payer MEDICAID ==
[~2016-12-04] VITALS: Ht 177.8 cm; Wt 75.0 kg
[~2016-12-04 17:11] MED LIST changes: +HYDR-3533 PO; +POTA-163 PO; -POTA10PO PO
[2016-12-04 17:13] VITALS: BP 125/67; PULSE 77; RESP 17; TEMP 97.9; O2SAT 98
--- NOTE | 2016-12-04 18:40 | PD ---
HPI Chief Complaint: Chest Pain Time Seen by Provider: 18:40 Travel History International Travel<30 days: No Contact w/Intl Traveler<30days: No Traveled to known affect area: No History of Present Illness HPI 61-year-old [place] male presents the emergency department with complaints of left anterior chest pain into the shoulder and radiating down the left arm. Patient states he woke up with his proxy 5 AM this morning. Patient states the pain is been constant through the day. Patient also complaining of left anterior hip pain which radiates into the left leg which has been going on for several days but worse since yesterday. Patient does state he was working on a lawnmower yesterday, which "blew up on him", but he does not feel this aggravated his current complaint symptoms. Patient states a history of MS in the past as well as prostate cancer which is convinced is causing his left hip pain. He states he had prostate cancer 13 [address] Patient sees Dr[address] Cuellar is a urologist. Patient has had some urinary discomfort and dysuria in the past week. Patient denies flank pain or fever, chills, nausea, vomiting, he states mild shortness of breath. Pain in the chest is worse with movement as is the pain in the left hip. He states the chest pain is 7/10. In the left hip is 9/10. PFSH Past Medical History Hx Anticoagulant Therapy: Yes Anemia: Yes Arthritis: Yes Asthma: No Autoimmune Disease: No Blood Disorders: No Anxiety: Yes Depression: No Heart Rhythm Problems: Yes (PATIENT STATES "HEART OCCASIONALLY BEATS OUT OF RHYTHM" MS) Cancer: Yes (PROSTATE) Cardiac Catheterization: Yes Cardiovascular Problems: Yes (MS) High Cholesterol: No Chest Pain: Yes Congestive Heart Failure: Yes COPD: No Coronary Artery Disease: Yes Diabetes: No Diminished Hearing: No Endocrine: No Gastrointestinal Disorders: Yes (GI BLEED, IBS) GERD: Yes Genitourinary: Yes (RETENTION FROM PROSTATE ENLARGEMENT) Headaches: Yes Hiatal Hernia: Yes Heparin Induced Thrombocytopen: No Hypertension: Yes 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") Implanted Vascular Access Dvce: Yes Musculoskeletal: Yes (LEG WEAKNESS) Neurologic: Yes (CVA, TIA) Psychiatric: No Reproductive: No Respiratory: Yes (PNA, COPD) Immunizations Current: Yes Myocardial Infarction: Yes Pancreatitis: Yes Radiation Therapy: Yes Sleep Apnea: Yes Thyroid Disease: No Ulcer: Yes PNEUMOCCOCAL Vaccine (Year): 1 Past Surgical History Abdominal Surgery: Yes (REPAIR LEAKING BLOOD VESSEL IN RECTUM X3, POLYP REMOVED ) AICD: No Arteriovenous Shunt: No Body Medical Devices: TITANIUM MIKE IN LEFT HIP, BULLET IN RIGHT SHOULDER Cardiac Surgery: Yes (CATH) Cholecystectomy: Yes Ear Surgery: No Endocrine Surgery: No Eye Surgery: No Genitourinary Surgery: No Gynecologic Surgery: No Insulin Pump: No Joint Replacement: Yes (LEFT HIP-TOTAL, LEFT ROTATOR CUFF SURGERY) Oral Surgery: No Pacemaker: No Thoracic Surgery: Yes (lung reattachment) Other Surgery: Yes (LEFT HIP REPLACEMENT, GALLBLADDER REMOVAL) Social History Alcohol Use: No Tobacco Use: Yes (1 CIGARETTE A DAY) Substance Use: No Allergies-Medications (Allergen,Severity, Reaction): Coded Allergies: Cardura (Verified Allergy, Severe, SOB,CHEST PAIN, 11/29/16) Cipro (Verified Allergy, Severe, RASH, SWOLLEN FACE, 11/29/16) Codeine (Verified Allergy, Severe, sob, 11/29/16) Contrast Media (Verified Allergy, Severe, BLISTERS AND EDEMA AT SITE, 11/29) Imodium (Verified Allergy, Severe, rash, 11/29/16) BROKE OUT IN RASH, AND SWELLING AROUND NECK Nonsteroidal Anti-Inflammatory Agts (Verified Allergy, Severe, 11/29/16) Spironolactone (Verified Allergy, Severe, Bleeding, 11/29/16) Fentanyl (Verified Allergy, Intermediate, rash, 11/29/16) Corticosteroids (Verified Adverse Reaction, Severe, HEART MURMUR, 11/29/16) MRI PRECAUTION (Verified Adverse Reaction, Severe, SHRAPNEL IN C-SPINE per Dr. Smart 10/26/04, 11/29/16) Reported Meds & Prescriptions Reported Meds & Active Scripts Active Lortab (Hydrocodone-Acetaminophen) 5-325 Mg Tab 1 Tab PO Q6H PRN Lortab (Hydrocodone-Acetaminophen) 10-325 Mg Tab 1 Tab PO Q4H PRN Reported Potassium Chloride ER (Potassium Chloride) 20 Meq Tab 20 Meq PO DAILY Xanax (Alprazolam) 1 Mg Tab 1 Mg PO Q8H PRN Flomax (Tamsulosin HCl) 0.4 Mg Cap 0.4 Mg PO BID Hydrochlorothiazide 12.5 Mg Tab 25 Mg PO DAILY Metoprolol Succinate ER 24 HR (Metoprolol Succinate) 50 Mg Tab 100 Mg PO BID Atrovent HFA 12.9 GM Inh (Ipratropium [place]) 17 Mcg/Act Aer 2 Puff INH TID Aspirin 81 Mg Tabdr 81 Mg PO EVERY OTHER DAY Amlodipine (Amlodipine Besylate) 5 Mg Tab 5 Mg PO BID Proventil Hfa 6.7 GM Inh (Albuterol Sulfate) 90 Mcg/Act Aer 2 Puff INH Q6H PRN Zenpep (Pancrelipase) 3,000-10,000-16,000 Units Cap 2 Cap PO TIDPC Phenergan (Promethazine HCl) 25 Mg Tab 12.5 Mg PO Q6H PRN Review of Systems Except as stated in HPI: all other systems reviewed are Neg General / Constitutional: No: Fever Eyes: No: Visual changes HENT: No: Headaches Cardiovascular: No: Chest Pain or Discomfort Respiratory: No: Shortness of Breath Gastrointestinal: No: Abdominal Pain Genitourinary: No: Dysuria Musculoskeletal: No: Pain Skin: No Rash Neurologic: No: Weakness Psychiatric: No: Depression Endocrine: No: Polydipsia Hematologic/Lymphatic: No: Easy Bruising Physical Exam Narrative GENERAL: Patient is seated comfortably in no acute distress. SKIN: Warm and dry. Normal color. Normal turgor. No diaphoresis. HEAD: Atraumatic. Normocephalic. EYES: Pupils equal and round. No scleral icterus. No injection or drainage. ENT: No nasal bleeding or discharge. Mucous membranes pink and moist. Pharynx is normal. NECK: Trachea midline. No JVD. Neck is supple and nontender. CARDIOVASCULAR: Regular rate and rhythm. No murmurs gallops or rubs. RESPIRATORY: No accessory muscle use. Clear to auscultation. Breath sounds equal bilaterally. Patient has reproducible tenderness along the left anterior chest with palpation and motion of the left arm. GASTROINTESTINAL: Abdomen soft, non-tender, nondistended. Hepatic and splenic margins not palpable. MUSCULOSKELETAL: Extremities without clubbing, cyanosis, or edema. No obvious deformities. Range of motion is full, but with exam of the left hip the patient has discomfort in the anterior groin and hip. No weakness is noted. No weakness is noted to the left upper extremity as well. Patient is soft tissue tenderness along the left trapezius region and the anterior pectoralis region with palpation. NEUROLOGICAL: Awake and alert. No obvious cranial nerve deficits. Motor grossly within normal limits. Five out of 5 muscle strength in the arms and legs. Normal speech. PSYCHIATRIC: Appropriate mood and affect; insight and judgment normal. Data Data Last Documented VS Vital Signs Date Time Temp Pulse Resp B/P Pulse Ox O2 Delivery O2 Flow Rate FiO2 12/04/16 17:13 97.9 77 17 125/67 98 Orders Electrocardiogram (12/04/16 ) Ckmb (Isoenzyme) Profile (12/04/16 18:40) Complete Blood Count With Diff (12/04/16 18:40) Comprehensive Metabolic Panel (12/04/16 18:40) Magnesium (Mg) (12/04/16 18:40) Prothrombin Time / Inr (Pt) (12/04/16 18:40) Act Partial Throm Time (Ptt) (12/04/16 18:40) Troponin I (12/04/16 18:40) Chest, Single Ap (12/04/16 18:40) Ecg Monitoring (12/04/16 18:40) Bilateral Bp Monitoring (12/04/16 18:40) Iv Access Insert/Monitor (12/04/16 18:40) Oximetry (12/04/16 18:40) Oxygen Administration (12/04/16 18:40) Aspirin Chew (Aspirin Chew) (12/04/16 18:45) Morphine Inj (Morphine Inj) (12/04/16 18:45) Sodium Chloride 0.9% Flush (Ns Flush) (12/04/16 18:45) Urinalysis - C+S If Indicated (12/04/16 18:40) Hip, Uni(Ap&Lat) W Ap Pelvis (12/04/16 18:40) Oxycodone-Acetamin 10-325 Mg (Percocet 1 (12/04/16 20:45) Morphine Inj (Morphine Inj) (12/04/16 20:45) Labs Laboratory Tests Test 12/04/16 12/04/16 12/04/16 19:30 20:41 21:10 Urine Color YELLOW Urine Turbidity CLEAR Urine pH 5.5 Urine Specific [place] 1.017 Urine Protein NEG mg/dL Urine Glucose (UA) NEG mg/dL Urine Ketones NEG mg/dL Urine Occult Blood NEG Urine Nitrite NEG Urine Bilirubin NEG Urine Urobilinogen LESS THAN 2.0 MG/DL Urine Leukocyte Esterase NEG Urine Mucus FEW /lpf Microscopic Urinalysis Comment CATH-CULT NOT IND White Blood Count 5.4 TH/MM3 Red Blood Count 4.26 MIL/MM3 Hemoglobin 11.5 GM/DL Hematocrit 35.5 % Mean Corpuscular Volume 83.5 FL Mean Corpuscular Hemoglobin 27.0 PG Mean Corpuscular Hemoglobin 32.3 % Concent Red Cell Distribution Width 23.2 % Platelet Count 386 TH/MM3 Mean Platelet Volume 7.5 FL Neutrophils (%) (Auto) 46.0 % Lymphocytes (%) (Auto) 36.2 % Monocytes (%) (Auto) 6.5 % Eosinophils (%) (Auto) 10.1 % Basophils (%) (Auto) 1.2 % Neutrophils # (Auto) 2.5 TH/MM3 Lymphocytes # (Auto) 2.0 TH/MM3 Monocytes # (Auto) 0.3 TH/MM3 Eosinophils # (Auto) 0.5 TH/MM3 Basophils # (Auto) 0.1 TH/MM3 CBC Comment DIFF FINAL Differential Comment Prothrombin Time 11.4 SEC Prothromb Time International 1.0 RATIO Ratio Activated Partial 26.7 SEC Thromboplast Time Sodium Level 136 MEQ/L Potassium Level 3.7 MEQ/L Chloride Level 103 MEQ/L Carbon Dioxide Level 24.8 MEQ/L Anion Gap 8 MEQ/L Blood Urea Nitrogen 16 MG/DL Creatinine 0.91 MG/DL Estimat Glomerular Filtration 102 ML/MIN Rate Random Glucose 88 MG/DL Calcium Level 9.4 MG/DL Magnesium Level 2.1 MG/DL Total Bilirubin 0.5 MG/DL Aspartate Amino Transf 9 U/L (AST/SGOT) Alanine Aminotransferase 15 U/L (ALT/SGPT) Alkaline Phosphatase 83 U/L Total Creatine Kinase 87 U/L Troponin I LESS THAN 0.02 NG/ML Total Protein 7.6 GM/DL Albumin 3.7 GM/DL [facility] Medical Decision Making Medical Screen Exam Complete: Yes Emergency Medical Condition: Yes Medical Record Reviewed: Yes Differential Diagnosis Left hip pain. Arthralgia. Left chest pain. Cardiac syndrome. Muscle skeletal pain. Narrative Course Patient is medically stable at time of exam. Labs ordered including CBC, CMP, cardiac panel and coagulation studies. Urinalysis is ordered. Chest x-ray is ordered as well as left hip x-rays. EKG is performed showing normal sinus rhythm with no ST changes. This is reviewed by Dr. Bishop. Patient is given aspirin 324 mg by mouth. Patient is also given 4 mg IV morphine. Chest x-ray and left x-ray are both unremarkable per radiologist. Urinalysis is unremarkable. CMP is unremarkable. On is less than 0.02. Patient is felt to be stable for discharge. Patient is felt to have muscle skeletal pain. Patient will be given a prescription for tramadol 50 mg one every 6 hours when necessary pain #20. Patient should call his primary care physician for follow-up in the next several days. Diagnosis Primary Impression: Pain in joint involving left pelvic region and thigh Additional Impression: Chest pain Qualified Code: R07.82 - Intercostal pain Referrals: Primary Care Physician Patient Instructions: General Instructions Additional Instructions: EKG is performed showing normal sinus rhythm with no ST changes. Patient is given aspirin 324 mg by mouth. Patient is also given 4 mg IV morphine. Chest x-ray and left x-ray are both unremarkable per radiologist. Urinalysis is unremarkable. CMP is unremarkable. On is less than 0.02. Patient is felt to be stable for discharge. Patient is felt to have muscle skeletal pain. Patient will be given a prescription for tramadol 50 mg one every 6 hours when necessary pain #20. Patient should call his primary care physician for follow-up in the next several days. Med/Other Pt SpecificInfo: Prescription(s) given Disposition: 01 DISCHARGE HOME Condition: Stable Lg Baird Dec 04, 2016 18:40
[2016-12-04] MEDS ORDERED: ASPIRIN 81 MG CHEW TAB PO ONE (18:45)
[2016-12-04] MEDS ORDERED: MORPHINE SULFATE 4 MG/ML INJ IV PUSH ONE ×2 (18:45→20:45)
[2016-12-04] MEDS ORDERED: SODIUM CHLORIDE 0.9% FLUSH 10 ML FLUSH IVF PRN (18:45)
--- NOTE | 2016-12-04 19:39 | RADRPT ---
EXAM DATE/TIME: 12/04/2016 19:10 [facility] COMPARISON: HIP LEFT (AP&LAT 2/3VWS) W AP PELVIS, November 20, 2016, 18:42. INDICATIONS : Pelvic pain. MEDICAL HISTORY : Hiatal hernia. Carcinoma, prostatic. Gastroesophageal reflux disease. SURGICAL HISTORY : Cholecystectomy. Left hip arthroplasty. ENCOUNTER: Subsequent ACUITY: 3 weeks PAIN SCORE: 5/10 LOCATION: pelvis FINDINGS: Postoperative left hip replacement. No acute fracture or dislocation. No bony destructive changes. CONCLUSION: 1. Postoperative left hip replacement. No acute findings. Akira Mari MD on December 04, 2016 at 19:36 Board Certified Radiologist. This report was verified electronically.
--- NOTE | 2016-12-04 19:42 | RADRPT ---
EXAM DATE/TIME: 12/04/2016 19:10 [facility] COMPARISON: CHEST PA & LAT, November 07, 2016, 23:31. INDICATIONS : Chest pain. MEDICAL HISTORY : Hiatal hernia. Carcinoma, prostatic. Gastroesophageal reflux disease. SURGICAL HISTORY : Cholecystectomy. Left hip arthroplasty ENCOUNTER: Initial ACUITY: 1 day PAIN SCORE: 5/10 LOCATION: Bilateral chest FINDINGS: A single view of the chest demonstrates the lungs to be symmetrically aerated without evidence of mas s, infiltrate or effusion. The cardiomediastinal contours are unremarkable. Osseous structures are intact. CONCLUSION: No active disease. Akira Mari MD on December 04, 2016 at 19:38 Board Certified Radiologist. This report was verified electronically.
[2016-12-04 19:55] LABS: BLOOD, URINE NEG (NEG); GLUCOSE,URINE NEG (NEG); KETONE, URINE NEG (NEG); MUCUS URINE FEW /lpf (OCC); NITRITE,URINE NEG (NEG); PH, URINE 5.5 (5.0-8.5); URINE COLOR YELLOW (YELLW/STRAW)
[2016-12-04 19:57] LABS: COMMENT (UR) CATH-CULT NOT IND; CULTURE IF INDICATED CATH CULTURE NOT IND
[2016-12-04] MEDS ORDERED: oxyCODONE/ACETAMINOPHEN 10 MG/325 MG TAB PO ONE (20:45)
[2016-12-04 20:59] LABS: AUTOMATED NEUTROPHIL # 2.5 TH/MM3 (1.8-7.7); BASOPHIL # 0.1 TH/MM3 (0-0.2); BASOPHIL % 1.2 % (0.0-2.0); EOSINOPHIL # 0.5 TH/MM3 (0-0.4); EOSINOPHIL % 10.1 % (0.0-4.0); HEMATOCRIT 35.5 % (39.0-51.0); HEMO FLAGS DIFF FINAL; LYMPH % 36.2 % (9.0-44.0); MEAN CELL VOLUME 83.5 FL (80.0-100.0); MEAN CORPUSCULAR HGB CONC 32.3 % (32.0-36.0); MONO % 6.5 % (0.0-8.0); PLATELET COUNT 386 TH/MM3 (150-450); RED BLOOD COUNT 4.26 MIL/MM3 (4.50-5.90); RED CELL DISTRIBUTION WIDTH 23.2 % (11.6-17.2); WHITE BLOOD COUNT 5.4 TH/MM3 (4.0-11.0)
[2016-12-04 21:11] LABS: APTT (PATIENT) 26.7 SEC (24.3-30.1); PROTHROMBIN TIME - PATIENT 11.4 SEC (9.8-11.6)
[2016-12-04 21:54] LABS: ANION GAP 8 MEQ/L (5-15); AST (GOT) 9 U/L (15-37); BICARBONATE 24.8 MEQ/L (21.0-32.0); BLOOD UREA NITROGEN 16 MG/DL (7-18); CHLORIDE 103 MEQ/L (98-107); GLOMERULAR FILTRATION RATE 102 ML/MIN (>89); MAGNESIUM 2.1 MG/DL (1.5-2.5); POTASSIUM 3.7 MEQ/L (3.5-5.1); SODIUM (NA) 136 MEQ/L (136-145)
[2016-12-04 21:59] LABS: ALKALINE PHOSPHATASE 83 U/L (45-117); ALT (GPT) 15 U/L (12-78); TOTAL BILIRUBIN ADULT 0.5 MG/DL (0.2-1.0)
[2016-12-04 22:00] LABS: CREATINE KINASE 87 U/L (39-308)
[2016-12-04] MEDS ORDERED: TRAM50TA PO (22:08)
[2016-12-04 22:18] VITALS: BP 141/62
--- NOTE | 2016-12-05 11:45 | EKG ---
Date Performed: 12/04/2016 Time Performed: 17:24:26 PTAGE: 61 years EKG: Sinus rhythm NORMAL ECG PREVIOUS TRACING : 11/20/2016 18.52 Compared to prior tracing no significant change DOCTOR: Akira Haile Interpretating Date/Time 12/05/2016 11:43:59
== END 2016-12-04 22:21 | disposition home or self-care (01) ==
LOC: NEPE 17:11
DX: M25.552 Pain in left hip (principal); Z96.642 Presence of left artificial hip joint; I50.9 Heart failure, unspecified; I10 Essential (primary) hypertension; I25.2 Old myocardial infarction
CPT/HCPCS: 71010; 73502; 80053; 81001; 82550; 83735; 84484; 85025; 85610; 85730; 93005; 96374; 99285; J2270

== ENCOUNTER 2016-12-14 19:40 | Emergency (ER) | payer MEDICAID ==
[~2016-12-14] VITALS: Ht 177.8 cm; Wt 76.0 kg
[~2016-12-14 19:40] MED LIST changes: +TRAM50TA PO
[2016-12-14 19:51] VITALS: BP 154/85; PULSE 73; RESP 20; TEMP 98.3; O2SAT 99
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
== END 2016-12-14 20:37 | disposition left against medical advice (07) ==
LOC: NEPD 19:40
DX: G89.29 Other chronic pain (principal); R10.9 Unspecified abdominal pain; I25.2 Old myocardial infarction; Z95.1 Presence of aortocoronary bypass graft; I10 Essential (primary) hypertension; I50.9 Heart failure, unspecified; J44.9 Chronic obstructive pulmonary disease, unspecified; K58.9 Irritable bowel syndrome, unspecified; Z86.73 Personal history of transient ischemic attack (TIA), and cerebral infarction without residual deficits; Z72.0 Tobacco use
CPT/HCPCS: 99283

== ENCOUNTER 2016-12-16 09:33 | Emergency (ER) | payer OTHER, MEDICAID ==
[~2016-12-16] VITALS: Ht 177.8 cm; Wt 75.2 kg
[2016-12-16 09:50] VITALS: BP 129/71; PULSE 84; RESP 18; TEMP 98; O2SAT 97
[2016-12-16 11:09] VITALS: BP 137/77; PULSE 84; RESP 17; TEMP 98; O2SAT 98
--- NOTE | 2016-12-16 11:45 | PD ---
HPI Chief Complaint: Psychiatric Symptoms Time Seen by Provider: 11:15 Travel History International Travel<30 days: No Contact w/Intl Traveler<30days: No Traveled to known affect area: No History of Present Illness HPI 61-year-old Afro-Indian male presents to the emergency department under the Manzano act. He was found in from a local medical facility with a bag of medications. Patient is felt to be hallucinating and accusing the local pharmacy of giving him medications that were laced with some other drugs. Patient denies pain, fever, chest pain, shortness of breath, nausea, vomiting, or abdominal pain. Patient denies suicidal or homicidal ideation. He is felt to be a danger to himself by police. He has multiple allergies. Please see list. PFSH Past Medical History Hx Anticoagulant Therapy: Yes Anemia: Yes Arthritis: Yes Asthma: No Autoimmune Disease: No Blood Disorders: No Anxiety: Yes Depression: No Heart Rhythm Problems: Yes (PATIENT STATES "HEART OCCASIONALLY BEATS OUT OF RHYTHM" [place]) Cancer: Yes (PROSTATE) Cardiac Catheterization: Yes Cardiovascular Problems: Yes High Cholesterol: No Chest Pain: Yes Congestive Heart Failure: Yes COPD: No Coronary Artery Disease: Yes Diabetes: No Diminished Hearing: No Endocrine: No Gastrointestinal Disorders: Yes (GI BLEED, IBS) GERD: Yes Genitourinary: Yes (RETENTION FROM PROSTATE ENLARGEMENT) Headaches: Yes Hiatal Hernia: Yes Heparin Induced Thrombocytopen: No Hypertension: Yes 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") Implanted Vascular Access Dvce: Yes Musculoskeletal: Yes (LEG WEAKNESS) Neurologic: Yes (CVA, TIA) Psychiatric: No Reproductive: No Respiratory: Yes (PNA, COPD) Immunizations Current: Yes Myocardial Infarction: Yes Pancreatitis: Yes Radiation Therapy: Yes Sleep Apnea: Yes Thyroid Disease: No Ulcer: Yes PNEUMOCCOCAL Vaccine (Year): 1 Past Surgical History Abdominal Surgery: Yes (REPAIR LEAKING BLOOD VESSEL IN RECTUM X3, POLYP REMOVED ) AICD: No Arteriovenous Shunt: No Body Medical Devices: TITANIUM MIKE IN LEFT HIP, BULLET IN RIGHT SHOULDER Cardiac Surgery: Yes (CATH) Cholecystectomy: Yes Ear Surgery: No Endocrine Surgery: No Eye Surgery: No Genitourinary Surgery: No Gynecologic Surgery: No Insulin Pump: No Joint Replacement: Yes (LEFT HIP-TOTAL, LEFT ROTATOR CUFF SURGERY) Oral Surgery: No Pacemaker: No Thoracic Surgery: Yes (lung reattachment) Other Surgery: Yes (LEFT HIP REPLACEMENT, GALLBLADDER REMOVAL) Social History Alcohol Use: No Tobacco Use: Yes (1 CIGARETTE A DAY) Substance Use: No Allergies-Medications (Allergen,Severity, Reaction): Coded Allergies: Cardura (Verified Allergy, Severe, SOB,CHEST PAIN, 11/29/16) Cipro (Verified Allergy, Severe, RASH, SWOLLEN FACE, 11/29/16) Codeine (Verified Allergy, Severe, sob, 11/29/16) Contrast Media (Verified Allergy, Severe, BLISTERS AND EDEMA AT SITE, 11/29) Imodium (Verified Allergy, Severe, rash, 11/29/16) BROKE OUT IN RASH, AND SWELLING AROUND NECK Nonsteroidal Anti-Inflammatory Agts (Verified Allergy, Severe, 11/29/16) Spironolactone (Verified Allergy, Severe, Bleeding, 11/29/16) Fentanyl (Verified Allergy, Intermediate, rash, 11/29/16) Corticosteroids (Verified Adverse Reaction, Severe, HEART MURMUR, 11/29/16) MRI PRECAUTION (Verified Adverse Reaction, Severe, SHRAPNEL IN C-SPINE per Dr. Smart 10/26/04, 11/29/16) Reported Meds & Prescriptions Reported Meds & Active Scripts Active Tramadol (Tramadol HCl) 50 Mg Tab 50 Mg PO Q6H PRN Lortab (Hydrocodone-Acetaminophen) 5-325 Mg Tab 1 Tab PO Q6H PRN Lortab (Hydrocodone-Acetaminophen) 10-325 Mg Tab 1 Tab PO Q4H PRN Reported Potassium Chloride ER (Potassium Chloride) 20 Meq Tab 20 Meq PO DAILY Xanax (Alprazolam) 1 Mg Tab 1 Mg PO Q8H PRN Flomax (Tamsulosin HCl) 0.4 Mg Cap 0.4 Mg PO BID Hydrochlorothiazide 12.5 Mg Tab 25 Mg PO DAILY Metoprolol Succinate ER 24 HR (Metoprolol Succinate) 50 Mg Tab 100 Mg PO BID Atrovent HFA 12.9 GM Inh (Ipratropium [place]) 17 Mcg/Act Aer 2 Puff INH TID Aspirin 81 Mg Tabdr 81 Mg PO EVERY OTHER DAY Amlodipine (Amlodipine Besylate) 5 Mg Tab 5 Mg PO BID Proventil Hfa 6.7 GM Inh (Albuterol Sulfate) 90 Mcg/Act Aer 2 Puff INH Q6H PRN Zenpep (Pancrelipase) 3,000-10,000-16,000 Units Cap 2 Cap PO TIDPC Phenergan (Promethazine HCl) 25 Mg Tab 12.5 Mg PO Q6H PRN Review of Systems ROS Limitations: Altered Mental Status, Psychotic Except as stated in HPI: all other systems reviewed are Neg General / Constitutional: No: Fever Eyes: No: Visual changes HENT: No: Headaches Cardiovascular: No: Chest Pain or Discomfort Respiratory: No: Shortness of Breath Gastrointestinal: No: Abdominal Pain Genitourinary: No: Dysuria Musculoskeletal: No: Pain Skin: No Rash Neurologic: No: Weakness Psychiatric: No: Depression Endocrine: No: Polydipsia Hematologic/Lymphatic: No: Easy Bruising Physical Exam Narrative GENERAL: Patient appears no acute distress. SKIN: Warm and dry. Normal color. Normal turgor. HEAD: Atraumatic. Normocephalic. EYES: Pupils equal and round. No scleral icterus. No injection or drainage. ENT: No nasal bleeding or discharge. Mucous membranes pink and moist. Pharynx is clear. Airway is patent. NECK: Trachea midline. No JVD. Supple and nontender. CARDIOVASCULAR: Regular rate and rhythm. RESPIRATORY: No accessory muscle use. Clear to auscultation. Breath sounds equal bilaterally. GASTROINTESTINAL: Abdomen soft, non-tender, nondistended. Hepatic and splenic margins not palpable. MUSCULOSKELETAL: Extremities without clubbing, cyanosis, or edema. No obvious deformities. NEUROLOGICAL: Awake and alert. No obvious cranial nerve deficits. Motor grossly within normal limits. Five out of 5 muscle strength in the arms and legs. Normal speech. PSYCHIATRIC: Appropriate mood and affect; insight and judgment normal. Data Data Last Documented VS Vital Signs Date Time Temp Pulse Resp B/P Pulse Ox O2 Delivery O2 Flow Rate FiO2 12/16/16 11:09 98.0 84 17 137/77 98 Room Air Orders Complete Blood Count With Diff (12/16/16 10:08) Comprehensive Metabolic Panel (12/16/16 10:08) Psych Screen (12/16/16 10:08) Drug Screen, Random Urine (12/16/16 10:08) Alcohol (Ethanol) (12/16/16 10:08) Urinalysis - C+S If Indicated (12/16/16 11:17) [facility] Medical Decision Making Medical Screen Exam Complete: Yes Emergency Medical Condition: Yes Differential Diagnosis Drug-induced psychosis. Manzano act. Substance abuse. Narrative Course Patient is medically stable at time of exam. Psychiatric labs ordered per protocol. Patient is medically stable for psychiatric evaluation. Diagnosis Primary Impression: Psychiatric symptoms Additional Impression: Medical clearance for psychiatric admission Condition: Stable Lg Baird Dec 16, 2016 11:45
[2016-12-16 12:15] LABS: AUTOMATED NEUTROPHIL # 3.9 TH/MM3 (1.8-7.7); BASOPHIL # 0.1 TH/MM3 (0-0.2); BLOOD, URINE NEG (NEG); EOSINOPHIL # 0.1 TH/MM3 (0-0.4); EOSINOPHIL % 1.8 % (0.0-4.0); GLUCOSE,URINE NEG (NEG); HEMATOCRIT 36.1 % (39.0-51.0); HEMO FLAGS DIFF FINAL; KETONE, URINE 80 mg/dL (NEG); LYMPH % 24.5 % (9.0-44.0); LYMPHOCYTE # 1.5 TH/MM3 (1.0-4.8); MEAN CORPUSCULAR HEMOGLOBIN 27.1 PG (27.0-34.0); MEAN CORPUSCULAR HGB CONC 31.9 % (32.0-36.0); MONO % 8.4 % (0.0-8.0); MUCUS URINE FEW /lpf (OCC); NEUT % 64.3 % (16.0-70.0); NITRITE,URINE NEG (NEG); PH, URINE 5.5 (5.0-8.5); PLATELET COUNT 246 TH/MM3 (150-450); RED BLOOD COUNT 4.25 MIL/MM3 (4.50-5.90); RED CELL DISTRIBUTION WIDTH 22.6 % (11.6-17.2); URINE COLOR YELLOW (YELLW/STRAW); WHITE BLOOD COUNT 6.1 TH/MM3 (4.0-11.0)
[2016-12-16] MEDS ORDERED: PANTOPRAZOLE SOD 40 MG DELAYED RELEASE TAB PO ONE (12:15)
[2016-12-16] MEDS ORDERED: ALUMINUM/MAGNESIUM/SIMETH 30 ML CUP PO ONE (12:15)
[2016-12-16] MEDS ORDERED: LIDOCAINE VISCOUS 2% SOLN 15 ML UDC PO ONE (12:15)
[2016-12-16 12:16] LABS: COMMENT (UR) CULT NOT INDICATED; CULTURE IF INDICATED CULT NOT INDICATED
[2016-12-16 12:22] LABS: AMPHETAMINE, URINE NEG (NEG); BARBITURATES, URINE NEG (NEG); COCAINE, URINE NEG (NEG)
[2016-12-16 12:37] LABS: ANION GAP 12 MEQ/L (5-15); AST (GOT) 17 U/L (15-37); BICARBONATE 23.5 MEQ/L (21.0-32.0); BLOOD UREA NITROGEN 28 MG/DL (7-18); CHLORIDE 105 MEQ/L (98-107); GLOMERULAR FILTRATION RATE 109 ML/MIN (>89); POTASSIUM 3.9 MEQ/L (3.5-5.1); SODIUM (NA) 140 MEQ/L (136-145)
[2016-12-16 12:42] LABS: ALKALINE PHOSPHATASE 89 U/L (45-117); ALT (GPT) 16 U/L (12-78); TOTAL BILIRUBIN ADULT 0.6 MG/DL (0.2-1.0)
[2016-12-16 13:30] VITALS: BP 136/75; PULSE 76; RESP 18; TEMP 99.2; O2SAT 98
[2016-12-16] MEDS ORDERED: HYDR25TA5 PO (14:46)
[2016-12-16] MEDS ORDERED: SPIRCAP INH (14:46)
[2016-12-16] MEDS ORDERED: FAMO20TA2 PO (14:46)
[2016-12-16] MEDS ORDERED: PANC1CAP9 PO (14:46)
[2016-12-16] MEDS ORDERED: ALBUAER3 INH (14:46)
--- NOTE | 2016-12-16 16:22 | PD ---
History of Present Illness Chief Complaint: Psychiatric Symptoms Time Seen by Provider: 16:10 Travel History International Travel<30 Days: No Contact w/Intl Traveler<30days: No Known affected area: No Legal Status Legal Status: Manzano Act Manzano Act Signed By: Bi Cotto History of Present Illness: History of Present Illness HPI 61-year-old Afro-Martiniquais male with a reported history of generalized anxiety disorder who presents to the emergency department under the Manzano act. [facility] with a bag of medications. Patient is felt to be hallucinating and accusing the local pharmacy of giving him medications that were laced with some other drugs. Patient denies pain, fever, chest pain, shortness of breath, nausea, vomiting, or abdominal pain. Patient denies suicidal or homicidal ideation. Patient is seen briefly in J pod. he is alert and oriented. He tells me that he " someone put me in the hospital because they thought I was going to be violent. They wanted to call my but I don;t want them to because she is playing tricks on me". he then tells me that he dos not need to be here and that he is planning on building a [employer] truck in order to drive to [place] to see his sister. he then states " I will just have to take the bus to [place]" . He denies any otrher concerns at this time. He reports he has been having trouble with sleep x ten years. No previous contact with [facility] psychiatric department. Telephone call to to obtain collateral information. message left to call [facility]. Telephone call to [facility]. He has been seen there for medication management and his last visit November 29, 2016 and seen by Barbara arriola of [facility] and adjustment disorder. He has an appointment on December 21, 2016. [facility] Past Medical History Hx Anticoagulant Therapy: Yes Anemia: Yes Arthritis: Yes Asthma: No Autoimmune Disease: No Blood Disorders: No Anxiety: Yes Depression: No Heart Rhythm Problems: Yes (PATIENT STATES "HEART OCCASIONALLY BEATS OUT OF RHYTHM" [place]) Cancer: Yes (PROSTATE) Cardiac Catheterization: Yes Cardiovascular Problems: Yes High Cholesterol: No Chest Pain: Yes Congestive Heart Failure: Yes COPD: No Coronary Artery Disease: Yes Diabetes: No Diminished Hearing: No Endocrine: No Gastrointestinal Disorders: Yes (GI BLEED, IBS) GERD: Yes Genitourinary: Yes (RETENTION FROM PROSTATE ENLARGEMENT) Headaches: Yes Hiatal Hernia: Yes Heparin Induced Thrombocytopen: No Hypertension: Yes 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") Implanted Vascular Access Dvce: Yes Musculoskeletal: Yes (LEG WEAKNESS) Neurologic: Yes (CVA, TIA) Psychiatric: No Reproductive: No Respiratory: Yes (PNA, COPD) Immunizations Current: Yes Myocardial Infarction: Yes Pancreatitis: Yes Radiation Therapy: Yes Sleep Apnea: Yes Thyroid Disease: No Ulcer: Yes PNEUMOCCOCAL Vaccine (Year): 1 Past Surgical History Abdominal Surgery: Yes (REPAIR LEAKING BLOOD VESSEL IN RECTUM X3, POLYP REMOVED ) AICD: No Arteriovenous Shunt: No Body Medical Devices: TITANIUM MIKE IN LEFT HIP, BULLET IN RIGHT SHOULDER Cardiac Surgery: Yes (CATH) Cholecystectomy: Yes Ear Surgery: No Endocrine Surgery: No Eye Surgery: No Genitourinary Surgery: No Gynecologic Surgery: No Insulin Pump: No Joint Replacement: Yes (LEFT HIP-TOTAL, LEFT ROTATOR CUFF SURGERY) Oral Surgery: No Pacemaker: No Thoracic Surgery: Yes (lung reattachment) Other Surgery: Yes (LEFT HIP REPLACEMENT, GALLBLADDER REMOVAL) Psychiatric History Psychiatric History Hx Psychiatric Treatment: He denies any History of Inpatient Treatment: Yes ([facility]) Social History Hx Alcohol Use: No Hx Tobacco Use: Yes (1 CIGARETTE A DAY) Hx Substance Use: No Family Psychiatric History Unknown Allergies-Medications (Allergen,Severity, Reaction): Coded Allergies: Cardura (Verified Allergy, Severe, SOB,CHEST PAIN, 12/20/16) Cipro (Verified Allergy, Severe, RASH, SWOLLEN FACE, 12/20/16) Codeine (Verified Allergy, Severe, sob, 12/20/16) Contrast Media (Verified Allergy, Severe, BLISTERS AND EDEMA AT SITE, ) Imodium (Verified Allergy, Severe, rash, 12/20/16) BROKE OUT IN RASH, AND SWELLING AROUND NECK Nonsteroidal Anti-Inflammatory Agts (Verified Allergy, Severe, 12/20/16) Spironolactone (Verified Allergy, Severe, Bleeding, 12/20/16) Fentanyl (Verified Allergy, Intermediate, rash, 12/20/16) Corticosteroids (Verified Adverse Reaction, Severe, HEART MURMUR, 12/20/16) MRI PRECAUTION (Verified Adverse Reaction, Severe, SHRAPNEL IN C-SPINE per Dr. Smart 10/26/04, 12/20/16) Reported Meds & Prescriptions Reported Meds & Active Scripts Active Lortab (Hydrocodone-Acetaminophen) 10-325 Mg Tab 1 Tab PO Q4H PRN Reported Proair Hfa 8.5 GM Inh (Albuterol Sulfate) 90 Mcg/Act Aer 2 Puff INH Q4-6H PRN 108 mcg/actuation Zenpep (Pancrelipase) 40,000-136,000-218,000 Units Cap 1 Cap PO TIDPC Hydrochlorothiazide 25 Mg Tab 25 Mg PO DAILY Spiriva Handihaler (Tiotropium Inh) 18 Mcg Cap 18 Mcg INH DAILY 1 capsule = 18 mcg Famotidine 20 Mg Tab 20 Mg PO DAILY Potassium Chloride ER (Potassium Chloride) 20 Meq Tab 20 Meq PO DAILY Flomax (Tamsulosin HCl) 0.4 Mg Cap 0.4 Mg PO BID Metoprolol Succinate ER 24 HR (Metoprolol Succinate) 50 Mg Tab 50 Mg PO BID Atrovent HFA 12.9 GM Inh (Ipratropium [place]) 17 Mcg/Act Aer 2 Puff INH TID Amlodipine (Amlodipine Besylate) 5 Mg Tab 5 Mg PO BID Proventil Hfa 6.7 GM Inh (Albuterol Sulfate) 90 Mcg/Act Aer 2 Puff INH Q6H PRN Phenergan (Promethazine HCl) 25 Mg Tab 12.5 Mg PO Q6H PRN Review of Systems ROS Limitations: Uncooperative Except as stated in HPI: all other systems reviewed are Neg Exam Alert: Yes [place]: Person, Place Mood: Calm, Oppositional (at times) Affect: Restricted Speech: Clear Eye Contact: Indirect Memory Intact: Comment (not formally tetsed) Delusions: Yes (possibly that he is building a truick) Delusion Type: Grandiose Suicidal: Ideation (deneis at present) Insight/Judgement poor. [facility] Medical Decision Making Medical Record Reviewed: Yes Assessment/Plan 61 year old under a BA . At this time we have no information to make a determination as to the BA. We will need to obtain collateral information. He will be evaluated tomorrow once again and we will attempt to obtain further information. Orders Complete Blood Count With Diff (12/16/16 10:08) Comprehensive Metabolic Panel (12/16/16 10:08) Psych Screen (12/16/16 10:08) Drug Screen, Random Urine (12/16/16 10:08) Alcohol (Ethanol) (12/16/16 10:08) Urinalysis - C+S If Indicated (12/16/16 11:17) Pantoprazole (Protonix) (12/16/16 12:15) Al-Mag Hy-Si 40-40-4 Mg/Ml Liq (Mag-Al P (12/16/16 12:15) Lidocaine 2% Viscous (Xylocaine 2% Visco (12/16/16 12:15) Lipase (12/16/16 12:04) Results Vital Signs Date Time Temp Pulse Resp B/P Pulse Ox O2 Delivery O2 Flow Rate FiO2 12/16/16 13:30 99.2 76 18 136/75 98 Room Air 12/16/16 11:09 98.0 84 17 137/77 98 Room Air 12/16/16 09:50 98.0 84 18 129/71 97 Laboratory Tests Test 12/16/16 11:55 White Blood Count 6.1 Red Blood Count 4.25 Hemoglobin 11.5 Hematocrit 36.1 Mean Corpuscular Volume 85.0 Mean Corpuscular Hemoglobin 27.1 Mean Corpuscular Hemoglobin 31.9 Concent Red Cell Distribution Width 22.6 Platelet Count 246 Mean Platelet Volume 7.6 Neutrophils (%) (Auto) 64.3 Lymphocytes (%) (Auto) 24.5 Monocytes (%) (Auto) 8.4 Eosinophils (%) (Auto) 1.8 Basophils (%) (Auto) 1.0 Neutrophils # (Auto) 3.9 Lymphocytes # (Auto) 1.5 Monocytes # (Auto) 0.5 Eosinophils # (Auto) 0.1 Basophils # (Auto) 0.1 CBC Comment DIFF FINAL Differential Comment Urine Color YELLOW Urine Turbidity CLEAR Urine pH 5.5 Urine Specific [place] 1.033 Urine Protein TRACE Urine Glucose (UA) NEG Urine Ketones 80 Urine Occult Blood NEG Urine Nitrite NEG Urine Bilirubin NEG Urine Urobilinogen 2.0 Urine Leukocyte Esterase NEG Urine RBC 1 Urine WBC 2 Urine Mucus FEW Microscopic Urinalysis Comment CULT NOT INDICATED Sodium Level 140 Potassium Level 3.9 Chloride Level 105 Carbon Dioxide Level 23.5 Anion Gap 12 Blood Urea Nitrogen 28 Creatinine 0.86 Estimat Glomerular Filtration 109 Rate Random Glucose 107 Calcium Level 9.6 Total Bilirubin 0.6 Aspartate Amino Transf 17 (AST/SGOT) Alanine Aminotransferase 16 (ALT/SGPT) Alkaline Phosphatase 89 Total Protein 8.0 Albumin 4.2 Lipase 89 Urine Opiates Screen POS Urine Barbiturates Screen NEG Urine Amphetamines Screen NEG Urine Benzodiazepines Screen POS Urine Cocaine Screen NEG Urine Cannabinoids Screen NEG Ethyl Alcohol Level LESS THAN 3 Diagnosis Primary Impression: Psychiatric symptoms Additional Impressions: Medical clearance for psychiatric admission Adjustment disorder with disturbance of conduct Psychiatrically Cleared: Yes Condition: Stable Problem Qualifiers Maya Martin [facility] Dec 16, 2016 16:21
[2016-12-16 19:00] VITALS: BP 115/60; PULSE 80; RESP 18
[2016-12-16 22:05] VITALS: BP 108/57; PULSE 90; RESP 18
[2016-12-17 02:03] VITALS: BP 114/67; PULSE 73; RESP 19; O2SAT 98
[2016-12-17 06:07] VITALS: BP 111/59; PULSE 66; RESP 18; O2SAT 98
--- NOTE | 2016-12-17 12:21 | PD.CONS ---
Provisional Diagnosis Admission Date Lester I. Adjustment disorder with disturbance of conduct Lester II. 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 History of lung cancer, CHF, HTN Lester IV. Chronic medical illnesses Lester V. 55 History of Present Illness Service Psychiatry Consult Requested By Primary Care Physician Ravin HUTCHINSON The patient is a 61-year-old man, domicile with his in [place], father of 3 kids, unemployed, supported by [facility], without psychiatric history of anxiety, he is on Xanax 1 mg 3 times a day, prescribed by PCP, no previous psychiatric hospitalizations, no previous suicidal attempts , alcohol use disorder, in sustained full remission, medical history lung cancer , CHF, HTN, who presents to the emergency department under the Manzano act. He was found in from a local medical facility with a bag of medications. Patient is felt to be hallucinating and accusing the local pharmacy of giving him medications that were laced with some other drugs. On psychiatric evaluation today patient is calm, cooperative a little bit irritable, he says that yesterday he was very upset, patient clarifies that he doesn't manage the stress very well sometimes. Patient denies depressive symptoms, he denies anxiety, he denies anhedonia, he denies hopelessness, he denies suicidal or homicidal ideation, he denies visual and auditory hallucinations. Patient is logical, coherent and relevant. No paranoia is observed during this evaluation. On longitudinal observation he has been okay, no agitation, no aggressive behavior reported. Denies the use of drugs and alcohol. Review of Systems Constitutional: DENIES: Diaphoretic episodes, Fatigue, Fever, Weight gain, Weight loss, Chills, Dizziness, Change in appetite, Night Sweats Endocrine: DENIES: Heat/cold intolerance, Polydipsia, Polyuria, Polyphagia Eyes: DENIES: Blurred vision, Diplopia, Eye inflammation, Eye pain, Vision loss , Photosensitivity, Double Vision Ears, nose, mouth, throat: DENIES: Tinnitus, Hearing loss, Vertigo, Nasal discharge, Oral lesions, Throat pain, Hoarseness, Ear Pain, Running Nose, Epistaxis, Sinus Pain, Toothache, Odynophagia Respiratory: DENIES: Apneas, Cough, Snoring, Wheezing, Hemoptysis, Sputum production, Shortness of breath Cardiovascular: DENIES: Chest pain, Palpitations, Syncope, Dyspnea on Exertion , PND, Lower Extremity Edema, Orthopnea, Claudication Musculoskeletal: DENIES: Joint pain, Muscle aches, Stiffness, Joint Swelling, Back pain, Neck pain Integumentary: DENIES: Abnormal pigmentation, Nail changes, Pruritus, Rash Hematologic/lymphatic: DENIES: Bruising, Lymphadenopathy Immunologic/allergic: DENIES: Eczema, Urticaria Psychiatric: DENIES: Anxiety, Confusion, Mood changes, Depression, Hallucinations, Agitation, Suicidal Ideation, Homicidal Ideation, Delusions Past Family Social History Coded Allergies: Cardura (Verified Allergy, Severe, SOB,CHEST PAIN, 11/29/16) Cipro (Verified Allergy, Severe, RASH, SWOLLEN FACE, 11/29/16) Codeine (Verified Allergy, Severe, sob, 11/29/16) Contrast Media (Verified Allergy, Severe, BLISTERS AND EDEMA AT SITE, 11/29) Imodium (Verified Allergy, Severe, rash, 11/29/16) BROKE OUT IN RASH, AND SWELLING AROUND NECK Nonsteroidal Anti-Inflammatory Agts (Verified Allergy, Severe, 11/29/16) Spironolactone (Verified Allergy, Severe, Bleeding, 11/29/16) Fentanyl (Verified Allergy, Intermediate, rash, 11/29/16) Corticosteroids (Verified Adverse Reaction, Severe, HEART MURMUR, 11/29/16) MRI PRECAUTION (Verified Adverse Reaction, Severe, SHRAPNEL IN C-SPINE per Dr. Smart 10/26/04, 11/29/16) Active Scripts Hydrocodone-Acetaminophen (Lortab)10-325 Mg Tab1 Tab PO Q4H PRN (PAIN) #7 TAB Ref 0 Prov:Daniella Coreas MD 11/10/16 Reported Medications Albuterol 8.5 GM Inh (Proair Hfa 8.5 GM Inh)90 Mcg/Act Aer2 Puff INH Q4-6H PRN ( SHORTNESS OF BREATH) #1 INHALER Ref 0 108 mcg/actuation 12/16/16 Pancrelipase (Zenpep)40,000-136,000-218,000 Units Cap1 Cap PO TIDPC #90 CAP Ref 0 12/16/16 Hydrochlorothiazide 25 Mg Tab25 Mg PO DAILY #30 TAB Ref 0 12/16/16 Tiotropium Inh (Spiriva Handihaler)18 Mcg Cap18 Mcg INH DAILY #30 CAP Ref 0 1 capsule = 18 mcg 12/16/16 Famotidine 20 Mg Tab20 Mg PO DAILY #60 TAB Ref 0 12/16/16 Potassium Chloride ER 20 Meq Tab20 Meq PO DAILY #30 TAB Ref 0 11/29/16 Tamsulosin (Flomax)0.4 Mg Cap0.4 Mg PO BID #30 CAP Ref 0 09/28/16 Metoprolol Succinate ER 24 HR 50 Mg Tab50 Mg PO BID #30 TAB Ref 0 09/28/16 Ipratropium HFA 12.9 GM Inh (Atrovent HFA 12.9 GM Inh)17 Mcg/Act Aer2 Puff INH TID #1 INHALER Ref 0 09/28/16 Amlodipine 5 Mg Tab5 Mg PO BID #30 TAB Ref 0 09/28/16 Albuterol 6.7 GM Inh (Proventil Hfa 6.7 GM Inh)90 Mcg/Act Aer2 Puff INH Q6H PRN (SHORTNESS OF BREATH) #1 INHALER Ref 0 09/28/16 Promethazine (Phenergan)25 Mg Tab12.5 Mg PO Q6H PRN (Nausea/Vomiting) Ref 0 09/28/16 Discontinued Reported Medications Alprazolam (Xanax)1 Mg Tab1 Mg PO Q8H PRN (ANXIETY) Ref 0 10/24/16 Hydrochlorothiazide 12.5 Mg Tab25 Mg PO DAILY #30 TAB Ref 0 09/28/16 Aspirin 81 Mg Tabdr81 Mg PO EVERY OTHER DAY 09/28/16 Pancrelipase (Zenpep)3,000-10,000-16,000 Units Cap2 Cap PO TIDPC #90 CAP Ref 0 09/28/16 Discontinued Scripts Tramadol 50 Mg Tab50 Mg PO Q6H PRN (PAIN) #20 TAB Prov:Kaylie Hernandez MD 12/04/16 Hydrocodone-Acetaminophen (Lortab)5-325 Mg Tab1 Tab PO Q6H PRN (PAIN) #15 TAB Prov:Cecille Mike DO 11/29/16 Family History Patient denies psychiatric family history Social History Patient was born and raised in [place], he lives with in [place], he has 3 kids,unemployed, history of incarcerations, highest level of education is 12th grade Physical Exam Vital Signs Vital Signs Date Time Temp Pulse Resp B/P Pulse Ox O2 Delivery O2 Flow Rate FiO2 12/17/16 06:07 66 18 111/59 98 12/17/16 02:03 Room Air 12/16/16 13:30 99.2 Mental Status Examination Appearance man, age appearing, fair hygiene, calm, cooperative Speech: Unremarkable Orientation: x3 Thought Process: Logical Thought Content: Unremarkable Hallucination Type: None Suicidal Ideation: No Previous Suicide Attempts: No Homicidal Ideation: No Judgment: WNL Affect: Good Mood: Appropriate Motor Activity: Normal gait Assessment & Plan Problem List: (1) Adjustment disorder with disturbance of conduct Assessment & Plan: On psychiatric evaluation today the patient does not present any evidence of depression, anxiety, azul or psychosis. She is logical , coherent and relevant, denies suicidal and homicidal ideation, denies visual and auditory hallucinations. On longitudinal observation patient has not presented any agitation, any aggressive behavior, hostility. I think that aggressive behavior and paranoia displayed yesterday in doctor's office is most probably due to his character/temperament structure and not secondary to a major primary psychiatric condition decompensation. Patient does not meet criteria for psychiatric admission at this moment. Extensive psycho education, supportive motivation provided. Manzano act will be lifted. ICD Code: F43.24 Assessment & Plan Estimated LOS: Hollis Thompson MD Dec 17, 2016 12:21
== END 2016-12-17 08:40 | disposition home or self-care (01) ==
LOC: NEPE 09:33 → NEPJ 12-17 08:40
DX: F43.24 Adjustment disorder with disturbance of conduct (principal); F22 Delusional disorders; F41.9 Anxiety disorder, unspecified; N40.0 Benign prostatic hyperplasia without lower urinary tract symptoms; J44.9 Chronic obstructive pulmonary disease, unspecified; I25.2 Old myocardial infarction; I25.10 Atherosclerotic heart disease of native coronary artery without angina pectoris; Z86.73 Personal history of transient ischemic attack (TIA), and cerebral infarction without residual deficits; Z96.642 Presence of left artificial hip joint; Z79.01 Long term (current) use of anticoagulants
CPT/HCPCS: 80053; 80307; 81001; 83690; 85025; 99283

== ENCOUNTER 2016-12-20 06:00 | Emergency (ER) | payer MEDICAID ==
[~2016-12-20] VITALS: Ht 177.8 cm; Wt 75.0 kg
[~2016-12-20 06:00] MED LIST changes: +ALBUAER3 INH; -ASPI1TAB69 PO; +FAMO20TA2 PO; -HYDR-3533 PO; -HYDR12.56 PO; +HYDR25TA5 PO; +PANC1CAP9 PO; +SPIRCAP INH; -TRAM50TA PO; -XANA1TAB2 PO; -ZENP PO
[2016-12-20 06:02] VITALS: BP 100/62; PULSE 92; RESP 18; TEMP 98; O2SAT 100
[2016-12-20] MEDS ORDERED: ONDANSETRON HCL 4 MG/2 ML VIAL IV ONE (06:30)
[2016-12-20] MEDS ORDERED: SODIUM CHLOR 0.9% 1000 ML INJ 1,000 ML IV ONE (06:30)
[2016-12-20] MEDS ORDERED: ASPI1TAB69 PO (06:35)
[2016-12-20 06:43] VITALS: O2SAT 97
--- NOTE | 2016-12-20 07:17 | RADRPT ---
EXAM DATE/TIME: 12/20/2016 06:37 [facility] COMPARISON: CHEST SINGLE AP, December 04, 2016, 19:10. INDICATIONS : Cough. MEDICAL HISTORY : Hiatal hernia. Carcinoma, prostatic. Gastroesophageal reflux disease. SURGICAL HISTORY : Cholecystectomy. Left hip arthroplasty. ENCOUNTER: Initial ACUITY: 1 day PAIN SCORE: 0/10 LOCATION: Bilateral chest FINDINGS: A single view of the chest demonstrates minimal basilar opacity most characteristic of atelectasis or scarring. The cardiomediastinal contours are unremarkable. Osseous structures are intact. CONCLUSION: 1. Minimal basilar opacity most characteristic of atelectasis. No effusion. Akira Mari MD on December 20, 2016 at 7:14 Board Certified Radiologist. This report was verified electronically.
[2016-12-20] MEDS ORDERED: DIATRIZOATE MEGLUM/DIATRIZOATE SOD 9 ML CUP ONE (07:25)
--- NOTE | 2016-12-20 07:25 | PD ---
HPI Chief Complaint: Eye Problems/Injury Time Seen by Provider: 07:06 Travel History International Travel<30 days: No Contact w/Intl Traveler<30days: No Traveled to known affect area: No History of Present Illness HPI The patient is a 61 year old male who presents to the [facility] emergency department with a history of reportedly spreading 7 dust on his pets at approximately 6:30 PM last night. He reports that the wind kicked the 7 dust back up into his face and his eyes. He reports that he has taken approximate 78 hours last night to rinse out his eyes, however they continue to be irritated. He reports that his vision is blurry because of it. He additionally reports that since last night he's been coughing up green sputum that at one time was also bloody. He reports that his chronic abdominal pain that is normally of 5-6 out of 10 in severity is also a 10 out of 10 in severity. He reports that he's had black tarry stool since last night. He reports that he does have a history of a GI bleed and has been followed by Dr. Saenz in the past. He reports that his last GI bleed was 4-5 months ago. The patient reports that he is followed by pain management for his chronic abdominal pain. He went to his pain management doctor yesterday and received his usual prescription for Lortab. He reports that it is not helping. The patient reports that the abdominal pain is generalized. The patient denies any recent fevers, neck pain, chest pain, shortness of breath, vomiting,urinary symptoms, or neurologic symptoms. [facility] Past Medical History Narrative Medical The patient's past medical history is significant for chronic abdominal pain, chronic opiate use related to chronic pain under pain management, history of prostate cancer, COPD, history of cerebrovascular accident, myocardial infarction, hypertension, history of GI bleeds, history of anemia, history of pneumonia. Hx Anticoagulant Therapy: Yes Anemia: Yes Arthritis: Yes Asthma: No Autoimmune Disease: No Blood Disorders: No Anxiety: Yes Depression: No Heart Rhythm Problems: Yes (PATIENT STATES "HEART OCCASIONALLY BEATS OUT OF RHYTHM" [place]) Cancer: Yes Cardiac Catheterization: Yes (2008) Cardiovascular Problems: Yes High Cholesterol: No Chest Pain: Yes Congestive Heart Failure: Yes COPD: Yes Cerebrovascular Accident: Yes (per patient multiple) Coronary Artery Disease: Yes Diabetes: No Diminished Hearing: No Endocrine: No Gastrointestinal Disorders: Yes (GI Bleed) GERD: Yes Genitourinary: Yes (RETENTION FROM PROSTATE ENLARGEMENT) Headaches: Yes Hiatal Hernia: Yes Heparin Induced Thrombocytopen: No Hypertension: Yes 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") Implanted Vascular Access Dvce: Yes Musculoskeletal: Yes (LEG WEAKNESS) Neurologic: Yes (CVA, TIA) Psychiatric: No Reproductive: No Respiratory: Yes (PNA, COPD) Immunizations Current: Yes Myocardial Infarction: Yes Pancreatitis: Yes Pneumonia: Yes Radiation Therapy: Yes Sleep Apnea: Yes Thyroid Disease: No Ulcer: Yes Tetanus Vaccination: < 5 Years Influenza Vaccination: Yes PNEUMOCCOCAL Vaccine (Year): 1 Past Surgical History Narrative Surgical The patient's past surgical history is significant for pelvic surgery related to a pelvic fracture, along surgery, history of cardiac catheterization in 2008 , cholecystectomy, left hip surgery, left rotator cuff repair. Abdominal Surgery: Yes (REPAIR LEAKING BLOOD VESSEL IN RECTUM X3, POLYP REMOVED ) AICD: No Arteriovenous Shunt: No Body Medical Devices: TITANIUM MIKE IN LEFT HIP, BULLET IN RIGHT SHOULDER Cardiac Surgery: Yes (CATH) Cholecystectomy: Yes Ear Surgery: No Endocrine Surgery: No Eye Surgery: No Genitourinary Surgery: No Gynecologic Surgery: No Insulin Pump: No Joint Replacement: Yes (L hip, L rotator cuff) Oral Surgery: No Pacemaker: No Thoracic Surgery: Yes (lung reattachment) Other Surgery: Yes (pelvic surgery , lung surgery d/t viral pneumonia) Social History Alcohol Use: No Tobacco Use: Yes Substance Use: No Allergies-Medications (Allergen,Severity, Reaction): Coded Allergies: Cardura (Verified Allergy, Severe, SOB,CHEST PAIN, 12/20/16) Cipro (Verified Allergy, Severe, RASH, SWOLLEN FACE, 12/20/16) Codeine (Verified Allergy, Severe, sob, 12/20/16) Contrast Media (Verified Allergy, Severe, BLISTERS AND EDEMA AT SITE, ) Imodium (Verified Allergy, Severe, rash, 12/20/16) BROKE OUT IN RASH, AND SWELLING AROUND NECK Nonsteroidal Anti-Inflammatory Agts (Verified Allergy, Severe, 12/20/16) Spironolactone (Verified Allergy, Severe, Bleeding, 12/20/16) Fentanyl (Verified Allergy, Intermediate, rash, 12/20/16) Corticosteroids (Verified Adverse Reaction, Severe, HEART MURMUR, 12/20/16) MRI PRECAUTION (Verified Adverse Reaction, Severe, SHRAPNEL IN C-SPINE per Dr. Smart 10/26/04, 12/20/16) Reported Meds & Prescriptions Reported Meds & Active Scripts Active Lortab (Hydrocodone-Acetaminophen) 10-325 Mg Tab 1 Tab PO Q4H PRN Reported Aspirin 81 Mg Tabdr 81 Mg PO DAILY Zenpep (Pancrelipase) 40,000-136,000-218,000 Units Cap 1 Cap PO TIDPC Hydrochlorothiazide 25 Mg Tab 25 Mg PO DAILY Famotidine 20 Mg Tab 20 Mg PO DAILY Potassium Chloride ER (Potassium Chloride) 20 Meq Tab 20 Meq PO DAILY Flomax (Tamsulosin HCl) 0.4 Mg Cap 0.4 Mg PO BID Metoprolol Succinate ER 24 HR (Metoprolol Succinate) 50 Mg Tab 50 Mg PO BID Amlodipine (Amlodipine Besylate) 5 Mg Tab 5 Mg PO BID Proventil Hfa 6.7 GM Inh (Albuterol Sulfate) 90 Mcg/Act Aer 2 Puff INH Q6H PRN Phenergan (Promethazine HCl) 25 Mg Tab 12.5 Mg PO Q6H PRN Review of Systems Except as stated in HPI: all other systems reviewed are Neg General / Constitutional: No: Fever Eyes: Positive: Blurred Vision, Foreign Body Sensation, Tearing, No: Visual changes HENT: Positive: Congestion, No: Headaches Cardiovascular: Positive: Dyspnea on exertion, No: Chest Pain or Discomfort Respiratory: Positive: Cough, No: Shortness of Breath Gastrointestinal: Positive: Diarrhea, Abdominal Pain, Changes in Bowel Habits, Indigestion, Other (black stools), No: Nausea, Vomiting, Loss of Appetite Genitourinary: No: Dysuria Musculoskeletal: No: Pain Skin: No Rash Neurologic: No: Weakness, Focal Abnormalities, Change in Mentation, Slurred Speech, Sensory Disturbance Psychiatric: No: Depression Endocrine: No: Polydipsia Hematologic/Lymphatic: No: Easy Bruising Physical Exam Narrative General: The patient is a well-developed well-nourished male in no acute distress. Head and Neck exam: Head is normocephalic atraumatic. Eyes: EOMI, pupils are equal round and reactive to light. The patient's eyelids were everted. There was no foreign body visualized. Pupils are 3 mm and equal bilaterally, reactive to light. No conjunctival injection is noted. Nose: Midline septum with pink mucous membranes Mouth: Dentition unremarkable. Moist mucus membranes. Posterior oropharynx is not erythematous. No tonsillar hypertrophy. Uvula midline. Airway patent. Neck: No palpable lymphadenopathy. No nuchal rigidity. No thyromegaly. Cardiovascular: Regular rate and rhythm without murmurs, gallops, or rubs. Lungs: Clear to auscultation bilaterally. No wheezes, rhonchi, or rales. Abdomen: Soft, with reported discomfort on palpation of the midepigastric area, no other tenderness on palpation of the other 4 quadrants of the abdomen. No guarding, rebound, or rigidity. Normal bowel sounds are audible. No tenderness on palpation of McBurney's point. Styles's sign. Extremities: No clubbing, cyanosis, or edema. 2+ pulses in all 4 extremities. No calf tenderness on palpation. Back: No costovertebral angle tenderness to palpation. Neurologic Exam: Grossly nonfocal. Skin Exam: No rash noted. Intact skin that is warm and dry. RECTAL EXAM: No masses or tenderness, stool is brown. Stool is Hemoccult negative. Data Data Last Documented VS Vital Signs Date Time Temp Pulse Resp B/P Pulse Ox O2 Delivery O2 Flow Rate FiO2 12/20/16 06:43 97 Room Air 12/20/16 06:02 98.0 92 18 100/62 Orders Electrocardiogram (12/20/16 06:28) Complete Blood Count With Diff (12/20/16 06:28) Comprehensive Metabolic Panel (12/20/16 06:28) Creatine Kinase (Cpk) (12/20/16 06:28) Ckmb (Isoenzyme) Profile (12/20/16 06:28) Troponin I (12/20/16 06:28) B-Type Natriuretic Peptide (12/20/16 06:28) Prothrombin Time / Inr (Pt) (12/20/16 06:28) Act Partial Throm Time (Ptt) (12/20/16 06:28) Blood Culture (12/20/16 06:28) C-Reactive Protein (Crp) (12/20/16 06:28) Lipase (12/20/16 06:28) Urinalysis - C+S If Indicated (12/20/16 06:28) Magnesium (Mg) (12/20/16 06:28) Chest, Single Ap (12/20/16 06:28) Ct Abd/Pel W/O Iv Contrast (12/20/16 06:28) Iv Access Insert/Monitor (12/20/16 06:28) Ecg Monitoring (12/20/16 06:28) Oximetry (12/20/16 06:28) Lactic Acid Sepsis Protocol (12/20/16 06:28) Sodium Chlor 0.9% 1000 Ml Inj (Ns 1000 M (12/20/16 06:30) Ondansetron Inj (Zofran Inj) (12/20/16 06:30) Eye Irrigation (12/20/16 06:28) Oral Contrast - Adult (12/20/16 06:45) Vascular Access Team Consult/P PRN (12/20/16 07:12) Diatrizoate Liq ( Gastroview Liq) (12/20/16 07:25) MDM Medical Decision Making Medical Screen Exam Complete: Yes Emergency Medical Condition: Yes Medical Record Reviewed: Yes Differential Diagnosis Toxin exposure, versus corneal abrasion, versus pneumonia, versus recurrent GI bleed Narrative Course During the course of the patients emergency department visit, the patients history, examination, and differential diagnosis were reviewed with the patient. The patient had IV access obtained and blood work sent for analysis. The patient states on a cardiac rehabilitation program director with oximetry and blood pressure monitoring. The patient will have his eyes irrigated. A chest x-ray was ordered, CT scan of the abdomen and pelvis was ordered. The patient was initially provided normal saline 1 L IV fluid bolus, Zofran 4 mg IV. The patients laboratory studies and radiologic studies were pending at the conclusion of my shift. The patient's case was checked out to the oncoming emergency physician to disposition based on the conclusion of the patient's workup. Kaylie Hernandez MD December 20, 2016 07:25
[2016-12-20] MEDS ORDERED: PROPARACAINE HCL 0.5% OPHT SOLN 15 ML BTL EACH EYE ONE (08:00)
[2016-12-20 08:50] LABS: APTT (PATIENT) 25.1 SEC (24.3-30.1); PROTHROMBIN TIME - PATIENT 10.6 SEC (9.8-11.6)
[2016-12-20 09:25] LABS: ALKALINE PHOSPHATASE 84 U/L (45-117); ALT (GPT) 15 U/L (12-78); ANION GAP 10 MEQ/L (5-15); AST (GOT) 18 U/L (15-37); BICARBONATE 26.4 MEQ/L (21.0-32.0); BLOOD UREA NITROGEN 21 MG/DL (7-18); CHLORIDE 104 MEQ/L (98-107); CREATINE KINASE 124 U/L (39-308); GLOMERULAR FILTRATION RATE 95 ML/MIN (>89); MAGNESIUM 2.3 MG/DL (1.5-2.5); SODIUM (NA) 140 MEQ/L (136-145); TOTAL BILIRUBIN ADULT 0.1 MG/DL (0.2-1.0)
[2016-12-20 09:37] LABS: CKMB 2.2 NG/ML (0.5-3.6)
--- NOTE | 2016-12-20 09:40 | PD ---
Data Data Last Documented VS Vital Signs Date Time Temp Pulse Resp B/P Pulse Ox O2 Delivery O2 Flow Rate FiO2 12/20/16 06:43 97 Room Air 12/20/16 06:02 98.0 92 18 100/62 Orders Electrocardiogram (12/20/16 06:28) Complete Blood Count With Diff (12/20/16 06:28) Comprehensive Metabolic Panel (12/20/16 06:28) Creatine Kinase (Cpk) (12/20/16 06:28) Ckmb (Isoenzyme) Profile (12/20/16 06:28) Troponin I (12/20/16 06:28) B-Type Natriuretic Peptide (12/20/16 06:28) Prothrombin Time / Inr (Pt) (12/20/16:28) Act Partial Throm Time (Ptt) (12/20/16 06:28) Blood Culture (12/20/16 06:28) C-Reactive Protein (Crp) (12/20/16 06:28) Lipase (12/20/16 06:28) Urinalysis - C+S If Indicated (12/20/16 06:28) Magnesium (Mg) (12/20/16 06:28) Chest, Single Ap (12/20/16 06:28) Iv Access Insert/Monitor (12/20/16 06:28) Ecg Monitoring (12/20/16 06:28) Oximetry (12/20/16 06:28) Lactic Acid Sepsis Protocol (12/20/16 06:28) Sodium Chlor 0.9% 1000 Ml Inj (Ns 1000 M (12/20/16 06:30) Ondansetron Inj (Zofran Inj) (12/20/16 06:30) Eye Irrigation (12/20/16 06:28) Oral Contrast - Adult (12/20/16 06:45) Vascular Access Team Consult/P PRN (12/20/16 07:12) Diatrizoate Liq ( Gastroview Liq) (12/20/16 07:25) Proparacaine 0.5% Opth Soln (Alcaine 0.5 (12/20/16 08:00) Call Poison Control (12/20/16 08:59) CKMB (12/20/16 08:00) CKMB% (12/20/16 08:00) Labs Laboratory Tests Test 12/20/16 08:00 Prothrombin Time 10.6 SEC Prothromb Time International 1.0 RATIO Ratio Activated Partial 25.1 SEC Thromboplast Time Sodium Level 140 MEQ/L Potassium Level 4.0 MEQ/L Chloride Level 104 MEQ/L Carbon Dioxide Level 26.4 MEQ/L Anion Gap 10 MEQ/L Blood Urea Nitrogen 21 MG/DL Creatinine 0.97 MG/DL Estimat Glomerular Filtration 95 ML/MIN Rate Random Glucose 101 MG/DL Lactic Acid Level 1.4 mmol/L Calcium Level 8.5 MG/DL Magnesium Level 2.3 MG/DL Total Bilirubin 0.1 MG/DL Aspartate Amino Transf 18 U/L (AST/SGOT) Alanine Aminotransferase 15 U/L (ALT/SGPT) Alkaline Phosphatase 84 U/L Total Creatine Kinase 124 U/L Troponin I LESS THAN 0.02 NG/ML C-Reactive Protein LESS THAN 0.29 MG/DL B-Type Natriuretic Peptide 6 PG/ML Total Protein 6.7 GM/DL Albumin 3.4 GM/DL Lipase 502 U/L [facility] Supervised Visit with HARPER: Yes Narrative Course 61-year-old man with multiple medical problems, chronic abdominal pain, GI bleed , presents to the emergency department complaining of eye burning, hemoptysis, abdominal pain, after reportedly spreading some sort of powdered weed killer or insecticide known as 7 dust. He reports when blowing around and he got into his eyes and his lungs about 6 PM last night. He states her multiple bouts and has irrigated his eyes but still states he has difficulty seeing and cough with hemoptysis, and worsening of his chronic abdominal pain. Patient was initially evaluated by Dr. Hernandez, but signed out to me to follow- up on the results of diagnostic testing. On repeat evaluation: Patient resting comfortably in bed. His complaining of decreased vision. My exam shows minimal injection to the eyes. Visual acuity was checked by the nurse and was 20/100 and the left eye, 20/100 the right eye, 20/70 overall. Bright light exam does not show any definite opacities to the cornea. Flourescne exam was performed. There is areas of intake that correspond to the palpebral fissure and neck: Distribution coming out from the iris on both sides on the right, as well as on the left. There is also a small susan of uptake overlying the iris on the left eye in the inferior temporal part of the eye. I don't see any areas of uptake directly over the visual axis. There is some photophobia. Labs show mildly elevated lipase, mildly elevated BUN, lactates normal, BNP is normal, chest x-ray is unremarkable. Patient received treatment with Parminder lens. Following this, patient eloped. He had been upset that I would not write him IV morphine but he seemed to be okay prior to eloping. He was irritated that the Parminder lens was tripping on him. We spoke with poison control recommended irrigation. Patient will need ophthalmology follow-up. Procedures Procedure Narrative Ultrasound-guided IV: Patient was unwilling to allow nursing staff to attempt IV access because she's had trouble with IV access in the past. Using the ultrasound to place a 20- gauge Angiocath in his distal right brachium medially. Diagnosis Primary Impression: Left against medical advice Les Hilton MD December 20, 2016 09:40
[2016-12-20 09:45] LABS: AUTOMATED NEUTROPHIL # 3.3 TH/MM3 (1.8-7.7); BASOPHIL # 0.1 TH/MM3 (0-0.2); BASOPHIL % 2.2 % (0.0-2.0); EOSINOPHIL # 0.7 TH/MM3 (0-0.4); EOSINOPHIL % 11.6 % (0.0-4.0); HEMATOCRIT 35.3 % (39.0-51.0); HEMO FLAGS DIFF FINAL; LYMPH % 26.3 % (9.0-44.0); LYMPHOCYTE # 1.6 TH/MM3 (1.0-4.8); MEAN CORPUSCULAR HEMOGLOBIN 26.7 PG (27.0-34.0); MONO % 6.2 % (0.0-8.0); NEUT % 53.7 % (16.0-70.0); PLATELET COUNT 257 TH/MM3 (150-450); RED CELL DISTRIBUTION WIDTH 21.8 % (11.6-17.2); WHITE BLOOD COUNT 6.1 TH/MM3 (4.0-11.0)
--- NOTE | 2016-12-20 11:46 | EKG ---
Date Performed: 12/20/2016 Time Performed: 07:03:30 PTAGE: 61 years EKG: Sinus rhythm NORMAL ECG NO PREVIOUS TRACING DOCTOR: Jace Epstein Interpretating Date/Time 12/20/2016 11:45:37
== END 2016-12-20 09:41 | disposition left against medical advice (07) ==
LOC: NEPE 06:00
DX: H53.8 Other visual disturbances (principal); I25.2 Old myocardial infarction; I10 Essential (primary) hypertension; G89.29 Other chronic pain; I25.10 Atherosclerotic heart disease of native coronary artery without angina pectoris; I50.9 Heart failure, unspecified; Z53.21 Procedure and treatment not carried out due to patient leaving prior to being seen by health care provider; Z79.01 Long term (current) use of anticoagulants; Z85.46 Personal history of malignant neoplasm of prostate; Z72.0 Tobacco use
CPT/HCPCS: 71010; 80053; 82550; 82552; 83605; 83690; 83735; 83880; 84484; 85025; 85610; 85730; 86140; 93005; 99285; Q9963

== ENCOUNTER 2016-12-25 07:32 | Observation (INO) | payer MEDICAID ==
[~2016-12-25] VITALS: Ht 177.8 cm; Wt 74.0 kg
[~2016-12-25 07:32] MED LIST changes: -ALBUAER3 INH; +ASPI1TAB69 PO; -IPRA17I INH; -SPIRCAP INH
[2016-12-25 07:34] VITALS: BP 146/70; PULSE 86; RESP 20; TEMP 97.7; O2SAT 100
[2016-12-25 07:57] VITALS: O2SAT 98
--- NOTE | 2016-12-25 08:12 | PD ---
HPI Chief Complaint: Abdominal Pain Time Seen by Provider: 07:46 Travel History International Travel<30 days: No Contact w/Intl Traveler<30days: No Traveled to known affect area: No History of Present Illness HPI Patient is a 61-year-old male presents emergency department for evaluation of rectal bleeding and right upper quadrant abdominal pain since this morning. Patient states that he notices stool turned dark day or 2 ago. Is followed by Dr. Saenz who gave him some test strips for his stool for blood and it turned out positive this morning. He has a history of rectal bleeding that had to be treated with colonoscopy. He also endorses a fall this morning and a possible loss of consciousness but does not remember the time over the particular circumstances of his fall. He denies any generalized weakness or fatigue. 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") Implanted Vascular Access Dvce: Yes Musculoskeletal: Yes (LEG WEAKNESS) Neurologic: Yes (CVA, TIA) Respiratory: Yes (LUNG OPERATION) Immunizations Current: Yes Myocardial Infarction: Yes Pancreatitis: Yes Pneumonia: Yes Radiation Therapy: Yes Sleep Apnea: Yes Ulcer: Yes PNEUMOCCOCAL Vaccine (Year): 1 Past Surgical History Abdominal Surgery: Yes (REPAIR LEAKING BLOOD VESSEL IN RECTUM X3, POLYP REMOVED ) Body Medical Devices: TITANIUM MIKE IN LEFT HIP, BULLET IN RIGHT SHOULDER Cardiac Surgery: Yes (CATH) Cholecystectomy: Yes Joint Replacement: Yes (L hip, L rotator cuff) Thoracic Surgery: Yes (lung reattachment) Other Surgery: Yes (pelvic surgery , lung surgery d/t viral pneumonia) Social History Alcohol Use: No Tobacco Use: Yes (1 cigerett a day ) Substance Use: No Allergies-Medications (Allergen,Severity, Reaction): Coded Allergies: Cardura (Verified Allergy, Severe, SOB,CHEST PAIN, 12/25/16) Cipro (Verified Allergy, Severe, RASH, SWOLLEN FACE, 12/25/16) Codeine (Verified Allergy, Severe, sob, 12/25/16) Contrast Media (Verified Allergy, Severe, BLISTERS AND EDEMA AT SITE, ) Imodium (Verified Allergy, Severe, rash, 12/25/16) BROKE OUT IN RASH, AND SWELLING AROUND NECK Nonsteroidal Anti-Inflammatory Agts (Verified Allergy, Severe, 12/25/16) Spironolactone (Verified Allergy, Severe, Bleeding, 12/25/16) Fentanyl (Verified Allergy, Intermediate, rash, 12/25/16) Corticosteroids (Verified Adverse Reaction, Severe, HEART MURMUR, 12/25/16) MRI PRECAUTION (Verified Adverse Reaction, Severe, SHRAPNEL IN C-SPINE per Dr. Smart 10/26/04, 12/25/16) Reported Meds & Prescriptions Reported Meds & Active Scripts Active Lortab (Hydrocodone-Acetaminophen) 10-325 Mg Tab 1 Tab PO Q4H PRN Reported Aspirin 81 Mg Tabdr 81 Mg PO DAILY Zenpep (Pancrelipase) 40,000-136,000-218,000 Units Cap 1 Cap PO TIDPC Hydrochlorothiazide 25 Mg Tab 25 Mg PO DAILY Famotidine 20 Mg Tab 20 Mg PO DAILY Potassium Chloride ER (Potassium Chloride) 20 Meq Tab 20 Meq PO DAILY Flomax (Tamsulosin HCl) 0.4 Mg Cap 0.4 Mg PO BID Metoprolol Succinate ER 24 HR (Metoprolol Succinate) 50 Mg Tab 50 Mg PO BID Amlodipine (Amlodipine Besylate) 5 Mg Tab 5 Mg PO BID Proventil Hfa 6.7 GM Inh (Albuterol Sulfate) 90 Mcg/Act Aer 2 Puff INH Q6H PRN Phenergan (Promethazine HCl) 25 Mg Tab 12.5 Mg PO Q6H PRN Review of Systems Except as stated in HPI: all other systems reviewed are Neg Physical Exam Narrative GENERAL: Well-developed well-nourished, no apparent distress. SKIN: Focused skin assessment warm/dry. HEAD: Atraumatic. Normocephalic. EYES: Pupils equal and round. No scleral icterus. No injection or drainage. ENT: No nasal bleeding or discharge. Mucous membranes pink and moist. NECK: Trachea midline. No JVD. CARDIOVASCULAR: Regular rate and rhythm. No murmur appreciated. RESPIRATORY: No accessory muscle use. Clear to auscultation. Breath sounds equal bilaterally. GASTROINTESTINAL: Abdomen soft, non-tender, nondistended. Hepatic and splenic margins not palpable. Abdomen soft, no peritoneal signs. MUSCULOSKELETAL: No obvious deformities. No clubbing. No cyanosis. No edema. NEUROLOGICAL: Awake and alert. No obvious cranial nerve deficits. Motor grossly within normal limits. Normal speech. PSYCHIATRIC: Appropriate mood and affect; insight and judgment normal. Data Data Last Documented VS Vital Signs Date Time Temp Pulse Resp B/P Pulse Ox O2 Delivery O2 Flow Rate FiO2 12/25/16 07:57 98 12/25/16 07:56 16 12/25/16 07:34 97.7 86 146/70 Room Air Orders Complete Blood Count With Diff (12/25/16 07:51) Comprehensive Metabolic Panel (12/25/16 07:51) Lipase (12/25/16 07:51) Prothrombin Time / Inr (Pt) (12/25/16 07:51) Act Partial Throm Time (Ptt) (12/25/16 07:51) Urinalysis - C+S If Indicated (12/25/16 07:51) Iv Access Insert/Monitor (12/25/16 07:51) Ecg Monitoring (12/25/16 07:51) Oximetry (12/25/16 07:51) Sodium Chloride 0.9% Flush (Ns Flush) (12/25/16 08:00) Electrocardiogram (12/25/16 07:51) Type And Screen (12/25/16 07:51) Morphine Inj (Morphine Inj) (12/25/16 08:15) Ondansetron Inj (Zofran Inj) (12/25/16 08:15) Sodium Chlor 0.9% 1000 Ml Inj (Ns 1000 M (12/25/16 08:15) Vascular Access Team Consult/P PRN (12/25/16 08:30) Vascular Poc Ultrasound (12/25/16 ) Consult Gastroenterology (12/25/16 ) Labs Laboratory Tests Test 12/25/16 12/25/16 08:20 08:46 White Blood Count 7.2 TH/MM3 Red Blood Count 4.01 MIL/MM3 Hemoglobin 11.2 GM/DL Hematocrit 34.1 % Mean Corpuscular Volume 85.0 FL Mean Corpuscular Hemoglobin 28.0 PG Mean Corpuscular Hemoglobin 32.9 % Concent Red Cell Distribution Width 21.5 % Platelet Count 334 TH/MM3 Mean Platelet Volume 7.3 FL Neutrophils (%) (Auto) 61.6 % Lymphocytes (%) (Auto) 22.0 % Monocytes (%) (Auto) 10.3 % Eosinophils (%) (Auto) 4.3 % Basophils (%) (Auto) 1.8 % Neutrophils # (Auto) 4.4 TH/MM3 Lymphocytes # (Auto) 1.6 TH/MM3 Monocytes # (Auto) 0.7 TH/MM3 Eosinophils # (Auto) 0.3 TH/MM3 Basophils # (Auto) 0.1 TH/MM3 CBC Comment DIFF FINAL Differential Comment Prothrombin Time 11.2 SEC Prothromb Time International 1.0 RATIO Ratio Activated Partial 25.2 SEC Thromboplast Time Sodium Level 141 MEQ/L Potassium Level 3.7 MEQ/L Chloride Level 108 MEQ/L Carbon Dioxide Level 26.1 MEQ/L Anion Gap 7 MEQ/L Blood Urea Nitrogen 20 MG/DL Creatinine 0.84 MG/DL Estimat Glomerular Filtration 112 ML/MIN Rate Random Glucose 126 MG/DL Calcium Level 8.9 MG/DL Total Bilirubin 0.1 MG/DL Aspartate Amino Transf 13 U/L (AST/SGOT) Alanine Aminotransferase 19 U/L (ALT/SGPT) Alkaline Phosphatase 93 U/L Total Protein 7.2 GM/DL Albumin 3.7 GM/DL Lipase 159 U/L Blood Type B POSITIVE Antibody Screen NEGATIVE Urine Color YELLOW Urine Turbidity CLEAR Urine pH 5.0 Urine Specific [place] 1.027 Urine Protein TRACE mg/dL Urine Glucose (UA) NEG mg/dL Urine Ketones NEG mg/dL Urine Occult Blood NEG Urine Nitrite NEG Urine Bilirubin NEG Urine Urobilinogen LESS THAN 2.0 MG/DL Urine Leukocyte Esterase NEG Urine RBC LESS THAN 1 /hpf Urine WBC 1 /hpf Urine Squamous Epithelial <1 /hpf Cells Urine Mucus FEW /lpf Microscopic Urinalysis Comment CULT NOT INDICATED MDM Medical Decision Making Medical Screen Exam Complete: Yes Emergency Medical Condition: Yes Interpretation(s) EKG shows normal sinus rhythm with a normal axis and normal R-wave progression. No concerning ST-T changes. Intervals within normal limits. This is a normal EKG. Differential Diagnosis GI bleed, anemia, varices, AVMs. Narrative Course Patient was roomed in emergency department, given morphine for his pain. He appears comfortable. His rectal exam does show gross melena which is relatively small in quantity. Hemoglobin is 11 which seems to be about his baseline. Review of his records shows that he has a history of AVMs and was scoped last month. He has been admitted multiple times for GI bleed and abdominal pain. Question was raised in the past as far as his affinity for morphine on the chart. Nonetheless the patient was discussed with Annemarie as the patient well and states that if the patient certainly has gross melena that he could be observed and consult at this afternoon for possible endoscopy. This was discussed with the patient and he would like to stay make sure that there is nothing life threatening going on. I agree with this course of action as well. The patient is hemodynamically stable for the floor. Patient was discussed with Dr. Andres for observation. Diagnosis Primary Impression: GI bleeding Qualified Code: K92.2 - Gastrointestinal hemorrhage, unspecified gastrointestinal hemorrhage type Admitting Information Admitting Physician Requests: Observation Condition: Stable Kennedy Myers MD December 25, 2016 08:12
[2016-12-25] MEDS ORDERED: MORPHINE SULFATE 4 MG/ML INJ IV PUSH ONE (08:15)
[2016-12-25] MEDS ORDERED: ONDANSETRON HCL 4 MG/2 ML VIAL IV PUSH ONE (08:15)
[2016-12-25] MEDS ORDERED: SODIUM CHLOR 0.9% 1000 ML INJ 1,000 ML IV ONE (08:15)
[2016-12-25 08:40] LABS: AUTOMATED NEUTROPHIL # 4.4 TH/MM3 (1.8-7.7); BASOPHIL # 0.1 TH/MM3 (0-0.2); BASOPHIL % 1.8 % (0.0-2.0); EOSINOPHIL # 0.3 TH/MM3 (0-0.4); EOSINOPHIL % 4.3 % (0.0-4.0); HEMATOCRIT 34.1 % (39.0-51.0); HEMO FLAGS DIFF FINAL; LYMPHOCYTE # 1.6 TH/MM3 (1.0-4.8); MEAN CORPUSCULAR HGB CONC 32.9 % (32.0-36.0); MONO % 10.3 % (0.0-8.0); NEUT % 61.6 % (16.0-70.0); PLATELET COUNT 334 TH/MM3 (150-450); RED BLOOD COUNT 4.01 MIL/MM3 (4.50-5.90); RED CELL DISTRIBUTION WIDTH 21.5 % (11.6-17.2); WHITE BLOOD COUNT 7.2 TH/MM3 (4.0-11.0)
[2016-12-25 08:48] LABS: APTT (PATIENT) 25.2 SEC (24.3-30.1); PROTHROMBIN TIME - PATIENT 11.2 SEC (9.8-11.6)
[2016-12-25 08:57] LABS: ALT (GPT) 19 U/L (12-78); ANION GAP 7 MEQ/L (5-15); AST (GOT) 13 U/L (15-37); BICARBONATE 26.1 MEQ/L (21.0-32.0); BLOOD UREA NITROGEN 20 MG/DL (7-18); CHLORIDE 108 MEQ/L (98-107); GLOMERULAR FILTRATION RATE 112 ML/MIN (>89); POTASSIUM 3.7 MEQ/L (3.5-5.1); SODIUM (NA) 141 MEQ/L (136-145)
[2016-12-25 08:59] LABS: ALKALINE PHOSPHATASE 93 U/L (45-117); TOTAL BILIRUBIN ADULT 0.1 MG/DL (0.2-1.0)
[2016-12-25 09:10] LABS: BLOOD, URINE NEG (NEG); COMMENT (UR) CULT NOT INDICATED; CULTURE IF INDICATED CULT NOT INDICATED; GLUCOSE,URINE NEG (NEG); KETONE, URINE NEG (NEG); MUCUS URINE FEW /lpf (OCC); NITRITE,URINE NEG (NEG); SQUAMOUS EPITHELIAL CELL URINE <1 /hpf (0-5); URINE COLOR YELLOW (YELLW/STRAW)
[2016-12-25] MEDS: SODIUM CHLORIDE 0.9% FLUSH 10 ML FLUSH IV FLUSH PRN ×3 (09:23→22:58)
[2016-12-25] MEDS ORDERED: ALBUTEROL SULFATE 90 MCG/ACT HFA 8 GM INHALER INH PRN (10:15)
--- NOTE | 2016-12-25 10:34 | EKG ---
Date Performed: 12/25/2016 Time Performed: 07:56:48 PTAGE: 61 years EKG: Sinus rhythm NORMAL ECG PREVIOUS TRACING : 12/20/2016 07.03 DOCTOR: Latia Schumacher Interpretating Date/Time 12/25/2016 10:33:08
--- NOTE | 2016-12-25 10:36 | HHI.HP ---
[facility] [place] [facility] Primary Care Physician Ravin Pérez Admission Diagnosis GI Bleed Diagnoses: (1) GI bleeding Diagnosis: Principal Chief Complaint: rectal bleed Travel History International Travel<30 Days: No Contact w/Intl Traveler <30 Da: No Traveled to Known Affected Are: No History of Present Illness patient is a 61 y/o male with history of GI bleed- s/p recent EGD with cautery of duodenal AVM's- presented to ER with rectal bleed. he says that when he went to bathroom this morning he had some rectal bleed which he described as coffee- ground stool. he had some nausea but with no emesis. he's complaining of generalized abdominal pain. he says that he thinks he probably fell and has some mild pain to the right knee. he's being followed up by . Review of Systems Constitutional: DENIES: Fever, Weight loss, Chills, Night Sweats Eyes: DENIES: Blurred vision, Diplopia, Vision loss, Double Vision Ears, nose, mouth, throat: DENIES: Tinnitus, Vertigo, Throat pain, Epistaxis Respiratory: DENIES: Apneas, Cough, Snoring, Wheezing, Hemoptysis, Sputum production, Shortness of breath Cardiovascular: DENIES: Chest pain, Palpitations, Syncope, Dyspnea on Exertion , PND, Lower Extremity Edema, Orthopnea, Claudication Gastrointestinal: COMPLAINS OF: Abdominal pain, Bloody stools, Nausea, DENIES : Black stools, Constipation, Diarrhea, Vomiting, Difficulty Swallowing, Anorexia Genitourinary: DENIES: Urinary frequency, Urgency, Hematuria, Dysuria Musculoskeletal: COMPLAINS OF: Joint pain (right knee), DENIES: Muscle aches, Stiffness, Joint Swelling Integumentary: DENIES: Rash Neurologic: DENIES: Abnormal gait, Headache, Localized weakness, Paresthesias, Seizures, Speech Problems, Tremor, Poor Balance Psychiatric: DENIES: Anxiety, Confusion, Mood changes, Depression, Hallucinations, Agitation, Suicidal Ideation, Homicidal Ideation, Delusions Past Family Social History Past Medical History GI bleed CVA prostate cancer hypertension Past Surgical History hip replacement cholecystectomy shoulder surgery Reported Medications Cardura (Verified Allergy, Severe, SOB,CHEST PAIN, 12/25/16) Cipro (Verified Allergy, Severe, RASH, SWOLLEN FACE, 12/25/16) Codeine (Verified Allergy, Severe, sob, 12/25/16) Contrast Media (Verified Allergy, Severe, BLISTERS AND EDEMA AT SITE, ) Imodium (Verified Allergy, Severe, rash, 12/25/16) BROKE OUT IN RASH, AND SWELLING AROUND NECK Nonsteroidal Anti-Inflammatory Agts (Verified Allergy, Severe, 12/25/16) Spironolactone (Verified Allergy, Severe, Bleeding, 12/25/16) Fentanyl (Verified Allergy, Intermediate, rash, 12/25/16) Corticosteroids (Verified Adverse Reaction, Severe, HEART MURMUR, 12/25/16) MRI PRECAUTION (Verified Adverse Reaction, Severe, SHRAPNEL IN C-SPINE per Dr. Smart 10/26/04, 12/25/16) Allergies: Coded Allergies: Cardura (Verified Allergy, Severe, SOB,CHEST PAIN, 12/25/16) Cipro (Verified Allergy, Severe, RASH, SWOLLEN FACE, 12/25/16) Codeine (Verified Allergy, Severe, sob, 12/25/16) Contrast Media (Verified Allergy, Severe, BLISTERS AND EDEMA AT SITE, ) Imodium (Verified Allergy, Severe, rash, 12/25/16) BROKE OUT IN RASH, AND SWELLING AROUND NECK Nonsteroidal Anti-Inflammatory Agts (Verified Allergy, Severe, 12/25/16) Spironolactone (Verified Allergy, Severe, Bleeding, 12/25/16) Fentanyl (Verified Allergy, Intermediate, rash, 12/25/16) Corticosteroids (Verified Adverse Reaction, Severe, HEART MURMUR, 12/25/16) MRI PRECAUTION (Verified Adverse Reaction, Severe, SHRAPNEL IN C-SPINE per Dr. Smart 10/26/04, 12/25/16) Active Ordered Medications Current Medications Sodium Chloride (NS Flush) 2 ml UNSCH PRN IV FLUSH FLUSH AFTER USING IV ACCESS Last administered on 12/25/16 09:23; Start 12/25/16 at 08:00 Morphine Sulfate (Morphine Inj) 4 mg ONCE ONCE IV PUSH Last administered on 09:23; Start 12/25/16 at 08:15; Stop 12/25/16 at 08:16; Status DC Ondansetron HCl 4 mg 4 mg ONCE ONCE IV PUSH Last administered on 12/25/16 09: 23; Start 12/25/16 at 08:15; Stop 12/25/16 at 08:16; Status DC Sodium Chloride 1,000 ml @ 999 mls/hr BOLUS ONCE IV Last administered on 09:23; Start 12/25/16 at 08:15; Stop 12/25/16 at 09:15; Status DC Sodium Chloride (NS 1000 ml Inj) 1,000 ml @ 100 mls/hr Q10H IV ; Start 12/25/16 at 10:15; Status UNV Ondansetron HCl (Zofran Inj) 4 mg Q8HR PRN IV PUSH NAUSEA; Start 12/25/16 at 10: 15; Status UNV Pantoprazole Sodium (Protonix Inj) 40 mg Q24H IV PUSH ; Start 12/25/16 at 10:15; Status UNV Albuterol Sulfate (Proair Hfa Inh) 2 puff Q6H PRN INH SHORTNESS OF BREATH; Start 12/25/16 at 10:15; Status UNV Social History smokes a cigarette a day- doesn't drink. Physical Exam Vital Signs Vital Signs Date Time Temp Pulse Resp B/P Pulse Ox O2 Delivery O2 Flow Rate FiO2 12/25/16 07:57 98 12/25/16 07:56 16 12/25/16 07:34 97.7 86 20 146/70 100 Room Air Physical Exam GENERAL: This is a well-nourished, well-developed patient, in no apparent distress. SKIN: No rashes, ecchymoses or lesions. Cool and dry. HEAD: Atraumatic. Normocephalic. No temporal or scalp tenderness. EYES: Pupils equal round and reactive. Extraocular motions intact. No scleral icterus. No injection or drainage. ENT: Nose without bleeding, purulent drainage or septal hematoma. Throat without erythema, tonsillar hypertrophy or exudate. Uvula midline. Airway patent. NECK: Trachea midline. No JVD or lymphadenopathy. Supple, nontender, no meningeal signs. CARDIOVASCULAR: Regular rate and rhythm without murmurs, gallops, or rubs. RESPIRATORY: Clear to auscultation. Breath sounds equal bilaterally. No wheezes , rales, or rhonchi. GASTROINTESTINAL: Abdomen soft, non-tender, nondistended. No hepato-splenomegaly , or palpable masses. No guarding. MUSCULOSKELETAL: contracture of the right hand- no pedal edema- no decrease in ROM of the right knee. NEUROLOGICAL: Awake and alert. Cranial nerves II through XII intact. Motor and sensory grossly within normal limits. Five out of 5 muscle strength in all muscle groups. Normal speech. Laboratory Laboratory Tests Test 12/25/16 12/25/16 08:20 08:46 White Blood Count 7.2 Red Blood Count 4.01 Hemoglobin 11.2 Hematocrit 34.1 Mean Corpuscular Volume 85.0 Mean Corpuscular Hemoglobin 28.0 Mean Corpuscular Hemoglobin 32.9 Concent Red Cell Distribution Width 21.5 Platelet Count 334 Mean Platelet Volume 7.3 Neutrophils (%) (Auto) 61.6 Lymphocytes (%) (Auto) 22.0 Monocytes (%) (Auto) 10.3 Eosinophils (%) (Auto) 4.3 Basophils (%) (Auto) 1.8 Neutrophils # (Auto) 4.4 Lymphocytes # (Auto) 1.6 Monocytes # (Auto) 0.7 Eosinophils # (Auto) 0.3 Basophils # (Auto) 0.1 CBC Comment DIFF FINAL Differential Comment Prothrombin Time 11.2 Prothromb Time International 1.0 Ratio Activated Partial 25.2 Thromboplast Time Sodium Level 141 Potassium Level 3.7 Chloride Level 108 Carbon Dioxide Level 26.1 Anion Gap 7 Blood Urea Nitrogen 20 Creatinine 0.84 Estimat Glomerular Filtration 112 Rate Random Glucose 126 Calcium Level 8.9 Total Bilirubin 0.1 Aspartate Amino Transf 13 (AST/SGOT) Alanine Aminotransferase 19 (ALT/SGPT) Alkaline Phosphatase 93 Total Protein 7.2 Albumin 3.7 Lipase 159 Blood Type B POSITIVE Antibody Screen NEGATIVE Urine Color YELLOW Urine Turbidity CLEAR Urine pH 5.0 Urine Specific [place] 1.027 Urine Protein TRACE Urine Glucose (UA) NEG Urine Ketones NEG Urine Occult Blood NEG Urine Nitrite NEG Urine Bilirubin NEG Urine Urobilinogen LESS THAN 2.0 Urine Leukocyte Esterase NEG Urine RBC LESS THAN 1 Urine WBC 1 Urine Squamous Epithelial <1 Cells Urine Mucus FEW Microscopic Urinalysis Comment CULT NOT INDICATED Result Diagram: 12/25/1681912/25/16 0820 Imaging EKG; NSR with no acute ST-T changes Assessment and Plan Assessment and Plan A/P - rectal bleed- s/p recent EGD with cautery of duodenal ABM's NPO for now- start IV fluid- start PPI- will monitor H/H closely- consult GI -history of CVA- hold aspirin- -hypertension; hold BP meds for now in light of GI bleed -history of prostate cancer- f/u as outpatient. -DVT prophylaxis with SCD's- no chemical prophylaxis due to GI bleed. Discussed Condition With ER physician and the patient. Problem Qualifiers (1) GI bleeding: Qualified Code: K92.2 - Gastrointestinal hemorrhage, unspecified gastrointestinal hemorrhage type Judi Andres MD December 25, 2016 10:36
[2016-12-25] MEDS: PANTOPRAZOLE SODIUM 40 MG VIAL IV PUSH SCH (10:56)
[2016-12-25] MEDS: SODIUM CHLOR 0.9% 1000 ML INJ 1,000 ML IV SCH ×2 (10:56→19:52)
[2016-12-25] MEDS: MORPHINE SULFATE 4 MG/ML INJ IV PUSH PRN ×4 (10:57→22:58)
[2016-12-25 11:00] VITALS: BP 120/61; PULSE 80; RESP 18; O2SAT 99
--- NOTE | 2016-12-25 12:33 | PD.CONS ---
HPI History of Present Illness This is a 61 year old [gentleman] with hx GIB and AVMs has been having dark stools, hes not sure when that started but he fell earlier this morning and he thinks it started after that. He also saw what looked like coffee grounds. When he saw the blood he did a home hemoccult test and it was pos. He is c/o right side pain since his fall. He is nauseated, no vomiting. HIs abdominal pain is 9/10. He takes pepcid for his abdominal pain, which appears to be chronic, and he says it helps. Pt is poor historian and becoming agitated. No NSAID use. Daily baby ASA per his heart doctor. (Selam Miranda) PFSH Past Medical History GI bleed CVA prostate cancer hypertension Past Surgical History hip replacement cholecystectomy shoulder surgery (Selam Miranda) Coded Allergies: Cardura (Verified Allergy, Severe, SOB,CHEST PAIN, 12/25/16) Cipro (Verified Allergy, Severe, RASH, SWOLLEN FACE, 12/25/16) Codeine (Verified Allergy, Severe, sob, 12/25/16) Contrast Media (Verified Allergy, Severe, BLISTERS AND EDEMA AT SITE, ) Imodium (Verified Allergy, Severe, rash, 12/25/16) BROKE OUT IN RASH, AND SWELLING AROUND NECK Nonsteroidal Anti-Inflammatory Agts (Verified Allergy, Severe, 12/25/16) Spironolactone (Verified Allergy, Severe, Bleeding, 12/25/16) Fentanyl (Verified Allergy, Intermediate, rash, 12/25/16) Corticosteroids (Verified Adverse Reaction, Severe, HEART MURMUR, 12/25/16) MRI PRECAUTION (Verified Adverse Reaction, Severe, SHRAPNEL IN C-SPINE per Dr. Smart 10/26/04, 12/25/16) Medications Current Medications Medications (Trade) Dose Ordered Sig/Juan José Route PRN Reason Start Time Stop Time Status Last Admin Dose Admin Sodium Chloride 2 ml 2 ml UNSCH PRN IV FLUSH FLUSH AFTER USING IV ACCESS 12/25/16 08:00 12/25/16 09:23 Sodium Chloride (NS 1000 ml Inj) 1,000 ml @ 100 mls/hr Q10H IV 12/25/16 10:15 12/25/16 10:56 Ondansetron HCl (Zofran Inj) 4 mg Q8H PRN IV PUSH NAUSEA 12/25/16 10:15 Pantoprazole Sodium (Protonix Inj) 40 mg Q24H IV PUSH 12/25/16 11:00 12/25/16 10:56 Albuterol Sulfate (Proair Hfa Inh) 2 puff Q6H PRN INH SHORTNESS OF BREATH 12/25/16 10:15 Morphine Sulfate (Morphine Inj) 2 mg Q4H PRN IV PUSH PAIN 1-10 12/25/16 10:30 12/25/16 10:57 Family History colon ca - brother sister - breast ca mother - pancreatitis sister - pancreatitis, gall bladder trouble Social History smokes a cigarette a day- doesn't drink. (Selam Miranda) GI Exam Vitals I&O Vital Signs Date Time Temp Pulse Resp B/P Pulse Ox O2 Delivery O2 Flow Rate FiO2 12/25/16 12:18 18 12/25/16 11:00 80 18 120/61 99 Room Air 12/25/16 07:57 98 12/25/16 07:56 16 12/25/16 07:34 97.7 86 20 146/70 100 Room Air Laboratory Test 12/25/16 12/25/16 08:20 08:46 White Blood Count 7.2 TH/MM3 Red Blood Count 4.01 MIL/MM3 Hemoglobin 11.2 GM/DL Hematocrit 34.1 % Mean Corpuscular Volume 85.0 FL Mean Corpuscular Hemoglobin 28.0 PG Mean Corpuscular Hemoglobin 32.9 % Concent Red Cell Distribution Width 21.5 % Platelet Count 334 TH/MM3 Mean Platelet Volume 7.3 FL Neutrophils (%) (Auto) 61.6 % Lymphocytes (%) (Auto) 22.0 % Monocytes (%) (Auto) 10.3 % Eosinophils (%) (Auto) 4.3 % Basophils (%) (Auto) 1.8 % Neutrophils # (Auto) 4.4 TH/MM3 Lymphocytes # (Auto) 1.6 TH/MM3 Monocytes # (Auto) 0.7 TH/MM3 Eosinophils # (Auto) 0.3 TH/MM3 Basophils # (Auto) 0.1 TH/MM3 CBC Comment DIFF FINAL Differential Comment Prothrombin Time 11.2 SEC Prothromb Time International 1.0 RATIO Ratio Activated Partial 25.2 SEC Thromboplast Time Sodium Level 141 MEQ/L Potassium Level 3.7 MEQ/L Chloride Level 108 MEQ/L Carbon Dioxide Level 26.1 MEQ/L Anion Gap 7 MEQ/L Blood Urea Nitrogen 20 MG/DL Creatinine 0.84 MG/DL Estimat Glomerular Filtration 112 ML/MIN Rate Random Glucose 126 MG/DL Calcium Level 8.9 MG/DL Total Bilirubin 0.1 MG/DL Aspartate Amino Transf 13 U/L (AST/SGOT) Alanine Aminotransferase 19 U/L (ALT/SGPT) Alkaline Phosphatase 93 U/L Total Protein 7.2 GM/DL Albumin 3.7 GM/DL Lipase 159 U/L Blood Type B POSITIVE Antibody Screen NEGATIVE Urine Color YELLOW Urine Turbidity CLEAR Urine pH 5.0 Urine Specific [place] 1.027 Urine Protein TRACE mg/dL Urine Glucose (UA) NEG mg/dL Urine Ketones NEG mg/dL Urine Occult Blood NEG Urine Nitrite NEG Urine Bilirubin NEG Urine Urobilinogen LESS THAN 2.0 MG/DL Urine Leukocyte Esterase NEG Urine RBC LESS THAN 1 /hpf Urine WBC 1 /hpf Urine Squamous Epithelial <1 /hpf Cells Urine Mucus FEW /lpf Microscopic Urinalysis Comment CULT NOT INDICATED Physical Examination HEENT: Pupils round and reactive to light; normocephalic; atraumatic; no jaundice. Throat is clear. NECK: Neck is supple, no JVD, no lymphadenopathy. CHEST: Chest is clear to auscultation and percussion. CARDIAC: Regular rate and rhythm with no murmur gallop or rubs. ABDOMEN: Soft, nondistended, nontender; no hepatosplenomegaly; bowel sounds are present in all four quadrants. EXTREMITIES: No clubbing, cyanosis, or edema. SKIN: Normal; no rash; no jaundice. PLATING OPERATOR: No focal deficits; alert and oriented times three. (Selam Miranda) Assessment and Plan Physician Comments Seen and examined with [facility], last bleeding episode this mornig. Says he guaaics his stools at home and they were srongly positive today. Recent gi young noted. Will plan on egd tomorrow, possible colonoscopy if egd -ve. Monitor for bleeding. Thank you (Charlette Damico MD) Selam Miranda December 25, 2016 12:33 Charlette Damico MD December 25, 2016 16:29
--- NOTE | 2016-12-25 13:17 | PD.CONS ---
HPI History of Present Illness This is a 61 year old [gentleman] w/ hx GIB, multiple AVMs who started having rectal bleeding this morning. He did home hemoccult and was positive. He says he fell this morning and noticed the BRBPR subsequently. He admits to severe right side abdominal pain, upper and lower abdomen and ribs and says he thinks he fell on that side. He says he has hx pancreatitis. Pt is agitated and poor historian. He denies black tarry stools, n/v. CT 11-29-16 --> stable appearance pancreas with dilation pancreatic duct, stable califications, was otherwise unremarkable. EGD 11-08-16 --> multiple AVMs duodenum cauterized, duodenitis, nodule GE junction, path benign. (Selam Miranad) PFSH Past Medical History GI bleed CVA prostate cancer hypertension Past Surgical History hip replacement cholecystectomy shoulder surgery (Selam Miranda) Coded Allergies: Cardura (Verified Allergy, Severe, SOB,CHEST PAIN, 12/25/16) Cipro (Verified Allergy, Severe, RASH, SWOLLEN FACE, 12/25/16) Codeine (Verified Allergy, Severe, sob, 12/25/16) Contrast Media (Verified Allergy, Severe, BLISTERS AND EDEMA AT SITE, ) Imodium (Verified Allergy, Severe, rash, 12/25/16) BROKE OUT IN RASH, AND SWELLING AROUND NECK Nonsteroidal Anti-Inflammatory Agts (Verified Allergy, Severe, 12/25/16) Spironolactone (Verified Allergy, Severe, Bleeding, 12/25/16) Fentanyl (Verified Allergy, Intermediate, rash, 12/25/16) Corticosteroids (Verified Adverse Reaction, Severe, HEART MURMUR, 12/25/16) MRI PRECAUTION (Verified Adverse Reaction, Severe, SHRAPNEL IN C-SPINE per Dr. Smart 10/26/04, 12/25/16) Medications Current Medications Medications (Trade) Dose Ordered Sig/Juan José Route PRN Reason Start Time Stop Time Status Last Admin Dose Admin Sodium Chloride 2 ml 2 ml UNSCH PRN IV FLUSH FLUSH AFTER USING IV ACCESS 12/25/16 08:00 12/25/16 09:23 Sodium Chloride (NS 1000 ml Inj) 1,000 ml @ 100 mls/hr Q10H IV 12/25/16 10:15 12/25/16 10:56 Ondansetron HCl (Zofran Inj) 4 mg Q8H PRN IV PUSH NAUSEA 12/25/16 10:15 Pantoprazole Sodium (Protonix Inj) 40 mg Q24H IV PUSH 12/25/16 11:00 12/25/16 10:56 Albuterol Sulfate (Proair Hfa Inh) 2 puff Q6H PRN INH SHORTNESS OF BREATH 12/25/16 10:15 Morphine Sulfate (Morphine Inj) 2 mg Q4H PRN IV PUSH PAIN 1-10 12/25/16 10:30 12/25/16 10:57 Family History colon ca - brother sister - breast ca mother - pancreatitis sister - pancreatitis, gall bladder trouble Social History smokes a cigarette a day- doesn't drink. (Selam Miranda) Review of Systems Constitutional: DENIES: Fever Eyes: DENIES: Blurred vision Ears, nose, mouth, throat: DENIES: Hearing loss Respiratory: DENIES: Cough Cardiovascular: DENIES: Chest pain Gastrointestinal: COMPLAINS OF: Abdominal pain, Bloody stools, DENIES: Black stools, Nausea, Vomiting, Hematemesis Genitourinary: DENIES: Urinary incontinence Musculoskeletal: DENIES: Joint Swelling Integumentary: DENIES: Abnormal pigmentation Hematologic/lymphatic: DENIES: Bruising Psychiatric: DENIES: Confusion (Selam Miranda) GI Exam Vitals I&O Vital Signs Date Time Temp Pulse Resp B/P Pulse Ox O2 Delivery O2 Flow Rate FiO2 12/25/16 12:18 18 12/25/16 11:00 80 18 120/61 99 Room Air 12/25/16 07:57 98 12/25/16 07:56 16 12/25/16 07:34 97.7 86 20 146/70 100 Room Air Laboratory Test 12/25/16 12/25/16 08:20 08:46 White Blood Count 7.2 TH/MM3 Red Blood Count 4.01 MIL/MM3 Hemoglobin 11.2 GM/DL Hematocrit 34.1 % Mean Corpuscular Volume 85.0 FL Mean Corpuscular Hemoglobin 28.0 PG Mean Corpuscular Hemoglobin 32.9 % Concent Red Cell Distribution Width 21.5 % Platelet Count 334 TH/MM3 Mean Platelet Volume 7.3 FL Neutrophils (%) (Auto) 61.6 % Lymphocytes (%) (Auto) 22.0 % Monocytes (%) (Auto) 10.3 % Eosinophils (%) (Auto) 4.3 % Basophils (%) (Auto) 1.8 % Neutrophils # (Auto) 4.4 TH/MM3 Lymphocytes # (Auto) 1.6 TH/MM3 Monocytes # (Auto) 0.7 TH/MM3 Eosinophils # (Auto) 0.3 TH/MM3 Basophils # (Auto) 0.1 TH/MM3 CBC Comment DIFF FINAL Differential Comment Prothrombin Time 11.2 SEC Prothromb Time International 1.0 RATIO Ratio Activated Partial 25.2 SEC Thromboplast Time Sodium Level 141 MEQ/L Potassium Level 3.7 MEQ/L Chloride Level 108 MEQ/L Carbon Dioxide Level 26.1 MEQ/L Anion Gap 7 MEQ/L Blood Urea Nitrogen 20 MG/DL Creatinine 0.84 MG/DL Estimat Glomerular Filtration 112 ML/MIN Rate Random Glucose 126 MG/DL Calcium Level 8.9 MG/DL Total Bilirubin 0.1 MG/DL Aspartate Amino Transf 13 U/L (AST/SGOT) Alanine Aminotransferase 19 U/L (ALT/SGPT) Alkaline Phosphatase 93 U/L Total Protein 7.2 GM/DL Albumin 3.7 GM/DL Lipase 159 U/L Blood Type B POSITIVE Antibody Screen NEGATIVE Urine Color YELLOW Urine Turbidity CLEAR Urine pH 5.0 Urine Specific [place] 1.027 Urine Protein TRACE mg/dL Urine Glucose (UA) NEG mg/dL Urine Ketones NEG mg/dL Urine Occult Blood NEG Urine Nitrite NEG Urine Bilirubin NEG Urine Urobilinogen LESS THAN 2.0 MG/DL Urine Leukocyte Esterase NEG Urine RBC LESS THAN 1 /hpf Urine WBC 1 /hpf Urine Squamous Epithelial <1 /hpf Cells Urine Mucus FEW /lpf Microscopic Urinalysis Comment CULT NOT INDICATED Physical Examination HEENT: EOMI; normocephalic; atraumatic; no jaundice. CHEST: Chest is clear to auscultation and percussion. CARDIAC: Regular rate and rhythm with no murmur gallop or rubs. ABDOMEN: Soft, nondistended, diffusely tender; no hepatosplenomegaly; bowel sounds are present in all four quadrants. EXTREMITIES: No clubbing, cyanosis, or edema. SKIN: Normal; no rash; no jaundice. HISTORY INSTRUCTOR: No focal deficits; alert and oriented times three. (Selam Miranda) Assessment and Plan Plan ASSESSMENT - anemia with BRBPR - 11.2, 34.1. pos hemoccult. hx GIB, multiple AVMs He says he fell this morning and noticed the BRBPR subsequently. CT 11-29-16 --> stable appearance pancreas with dilation pancreatic duct, stable califications, was otherwise unremarkable. EGD 11-08-16 --> multiple AVMs duodenum cauterized, duodenitis, nodule GE junction, path benign. Will do EGD, if neg consider colonoscopy. PLAN - EGD monday - obtain consents - clears for now - NPO after midnight - monitor HH This pt seen by myself and Dr Damico and this note is written on his behalf (Selam Miranda) Physician Comments Seen and examined with CRESENCIO, egd planned for monday, colonoscopy if above -ve. Dr. Saenz will follow. Thank you (Charlette Damico MD) Selam Miranda December 25, 2016 13:17 Charlette Damico MD December 25, 2016 16:32
[2016-12-25 13:22] VITALS: BP 143/70; PULSE 62; RESP 21; TEMP 98.8; O2SAT 97
[2016-12-25] MEDS: TAMSULOSIN HCL 0.4 MG CAP PO SCH ×2 (15:02→19:52)
[2016-12-25] MEDS: ONDANSETRON HCL 4 MG/2 ML VIAL IV PUSH PRN (15:08)
[2016-12-25 18:34] LABS: HEMATOCRIT 37.1 % (39.0-51.0)
[2016-12-25 20:10] VITALS: BP 155/72; PULSE 63; RESP 18; TEMP 97.6; O2SAT 98
[2016-12-25 22:06] LABS: HEMATOCRIT 35.8 % (39.0-51.0)
[2016-12-25 23:52] VITALS: BP 149/66; PULSE 69; RESP 18; TEMP 97.8; O2SAT 93
[2016-12-26] MEDS ORDERED: TEMA30CA PO (00:20)
[2016-12-26] MEDS ORDERED: TEMAZEPAM 15 MG CAP PO ONE (01:00)
[2016-12-26] MEDS ORDERED: ALBUTEROL SULFATE 90 MCG/ACT HFA 18 GM INHALER INH PRN (02:15)
[2016-12-26 02:24] VITALS: BP 142/69; PULSE 66; RESP 18; TEMP 95.7; O2SAT 97
[2016-12-26] MEDS: SODIUM CHLORIDE 0.9% FLUSH 10 ML FLUSH IV FLUSH PRN ×2 (02:29→05:17)
[2016-12-26] MEDS: MORPHINE SULFATE 4 MG/ML INJ IV PUSH PRN ×4 (05:17→21:18)
[2016-12-26] MEDS: SODIUM CHLOR 0.9% 1000 ML INJ 1,000 ML IV SCH ×2 (05:26→16:15)
[2016-12-26 06:11] VITALS: BP 128/65; PULSE 65; RESP 18; O2SAT 98
[2016-12-26 07:21] LABS: AUTOMATED NEUTROPHIL # 3.3 TH/MM3 (1.8-7.7); BASOPHIL # 0.1 TH/MM3 (0-0.2); BASOPHIL % 1.3 % (0.0-2.0); EOSINOPHIL # 0.6 TH/MM3 (0-0.4); EOSINOPHIL % 9.2 % (0.0-4.0); HEMATOCRIT 32.6 % (39.0-51.0); HEMO FLAGS DIFF FINAL; LYMPH % 29.1 % (9.0-44.0); LYMPHOCYTE # 1.8 TH/MM3 (1.0-4.8); MEAN CELL VOLUME 85.5 FL (80.0-100.0); MEAN CORPUSCULAR HEMOGLOBIN 27.8 PG (27.0-34.0); MEAN CORPUSCULAR HGB CONC 32.5 % (32.0-36.0); MONO % 7.3 % (0.0-8.0); NEUT % 53.1 % (16.0-70.0); PLATELET COUNT 257 TH/MM3 (150-450); RED BLOOD COUNT 3.81 MIL/MM3 (4.50-5.90); RED CELL DISTRIBUTION WIDTH 22.2 % (11.6-17.2); WHITE BLOOD COUNT 6.2 TH/MM3 (4.0-11.0)
--- NOTE | 2016-12-26 07:31 | HHI.PR ---
Subjective Remarks resting comfortably with no distress. has mild generalized abdominal pain. no GI bleed over night reported. d/w the RN. Objective Vitals Vital Signs Date Time Temp Pulse Resp B/P Pulse Ox O2 Delivery O2 Flow Rate FiO2 12/26/16 06:11 65 18 128/65 98 12/26/16 05:26 16 12/26/16 02:24 95.7 66 18 142/69 97 12/25/16 23:52 97.8 69 18 149/66 93 12/25/16 20:10 97.6 63 18 155/72 98 12/25/16 13:22 98.8 62 21 143/70 97 12/25/16 11:00 80 18 120/61 99 Room Air 12/25/16 07:57 98 12/25/16 07:56 16 12/25/16 07:34 97.7 86 20 146/70 100 Room Air I/O 12/25/16 12/25/16 12/25/16 12/26/16 12/26/16 12/26/16 07:00 15:00 23:00 07:00 15:00 23:00 Output Total 300 ml Balance -300 ml Output Urine Total 300 ml Result Diagram: 12/26/16 0619 12/25/16 0820 Objective Remarks GENERAL: This is a well-nourished, well-developed patient, in no apparent distress. CARDIOVASCULAR: Regular rate and regular rhythm without murmurs, gallops, or rubs. RESPIRATORY: Clear to auscultation. Breath sounds equal bilaterally. No wheezes , rales, or rhonchi. GASTROINTESTINAL: Abdomen soft, non-tender, nondistended. Normal, active bowel sounds MUSCULOSKELETAL: Extremities without clubbing, cyanosis, or edema. NEURO: Alert & Oriented x4 to person, place, time, situation. Moves all ext x4 Procedures none Medications and IVs Current Medications Sodium Chloride (NS Flush) 2 ml UNSCH PRN IV FLUSH FLUSH AFTER USING IV ACCESS Last administered on 12/26/16 05:17; Start 12/25/16 at 08:00 Morphine Sulfate (Morphine Inj) 4 mg ONCE ONCE IV PUSH Last administered on 09:23; Start 12/25/16 at 08:15; Stop 12/25/16 at 08:16; Status DC Ondansetron HCl 4 mg 4 mg ONCE ONCE IV PUSH Last administered on 12/25/16 09: 23; Start 12/25/16 at 08:15; Stop 12/25/16 at 08:16; Status DC Sodium Chloride 1,000 ml @ 999 mls/hr BOLUS ONCE IV Last administered on 09:23; Start 12/25/16 at 08:15; Stop 12/25/16 at 09:15; Status DC Sodium Chloride (NS 1000 ml Inj) 1,000 ml @ 100 mls/hr Q10H IV Last administered on 12/25/16 19:52; Start 12/25/16 at 10:15 Ondansetron HCl (Zofran Inj) 4 mg Q8H PRN IV PUSH NAUSEA Last administered on 15:08; Start 12/25/16 at 10:15 Pantoprazole Sodium (Protonix Inj) 40 mg Q24H IV PUSH Last administered on 10:56; Start 12/25/16 at 11:00 Albuterol Sulfate (Proair Hfa Inh) 2 puff Q6H PRN INH SHORTNESS OF BREATH; Start 12/25/16 at 10:15; Stop 12/26/16 at 02:15; Status DC Morphine Sulfate (Morphine Inj) 2 mg Q4H PRN IV PUSH PAIN 1-10 Last administered on 12/26/16 05:17; Start 12/25/16 at 10:30 Tamsulosin HCl (Flomax) 0.4 mg BID PO Last administered on 12/25/16 19:52; Start 12/25/16 at 15:00 Temazepam (Restoril) 15 mg ONCE ONCE PO Last administered on 12/26/16 00:46; Start 12/26/16 at 01:00; Stop 12/26/16 at 01:01; Status DC Albuterol Sulfate (Ventolin Hfa Inh) 2 puff Q6H PRN INH SHORTNESS OF BREATH Last administered on 12/26/16 02:28; Start 12/26/16 at 02:15 A/P Assessment and Plan A/P - rectal bleed- s/p recent EGD with cautery of duodenal ABM's NPO for now- continue IV fluid- started PPI- H/H fairly stable. GI consult appreciated and plan for EGD today. -history of CVA- hold aspirin- -hypertension; hold BP meds for now in light of GI bleed -history of prostate cancer- f/u as outpatient. -DVT prophylaxis with SCD's- no chemical prophylaxis due to GI bleed. -consult PT. Discharge Planning awaiting GI evaluation. Judi Andres MD December 26, 2016 07:30
[2016-12-26] MEDS: TAMSULOSIN HCL 0.4 MG CAP PO SCH ×2 (09:00→11:43)
[2016-12-26] MEDS ORDERED: PROPOFOL 200 MG/20 ML AMP IV ONE (09:39)
--- NOTE | 2016-12-26 09:54 | GIPROC ---
[facility] [address] [facility]. [facility], [address] EGD PROCEDURE REPORT EXAM DATE: 12/26/2016 PATIENT NAME: Roberto Erazo MR #: [id number] BIRTHDATE: 1955 ATTENDING: Vannessa Saenz MD ORDER #: [id number] COAT CHECK ATTENDANT: Shayan Lange and Sofía Rico STATUS: inpatient INDICATIONS: The patient is a 61 yr old male here for an EGD due to gi bleeding PROCEDURE PERFORMED: EGD w/ biopsy EGD w/ ablation egd with ablation of avm's using apc MEDICATIONS: None and Per Anesthesia. TOPICAL ANESTHETIC: none CONSENT: The patient understands the risks and benefits of the procedure and understands that these risks include, but are not limited to: sedation, allergic reaction, infection, perforation and/or bleeding. Alternative means of evaluation and treatment include, among others: physical exam, x-rays, and/or surgical intervention. The patient elects to proceed with this endoscopic procedure. medical equipment was checked for proper function. Hand hygiene and appropriate measures for infection prevention was taken. After the risks, benefits and alternatives of the procedure were thoroughly explained, Informed consent was verified, confirmed and timeout was successfully executed by the treatment team. The patient was anesthetized with topical anesthesia and the Pentax [id number] endoscope was introduced through the mouth and advanced to the second portion of the duodenum. Retroflexed views revealed a hiatal hernia The gastroscope was then slowly withdrawn and removed. 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 ADVERSE EVENTS: There were no complications. IMPRESSIONS: 1. Gastritis antrum-biopsy esophagitis distal esophagus-biopsy few small AVM's in gastric body s/p apc few small avms in duodenum-s/p apc 2. Retroflexed views revealed a hiatal hernia RECOMMENDATIONS: 1. Await biopsy results. Biopsy results will not be ready for 7-10 days. If you don't hear from us in two weeks, call our office for biopsy results. 2. Anti-reflux regimen 3. Continue PPI 4. Colonoscopy in am PATIENT CONDITION: stable DISPOSITION: Inpatient REPEAT EXAM: EGD pending biopsy results Vannessa Saenz MD eSigned: Vannessa Saenz MD 12/26/2016 9:54 AM cc: PATIENT NAME: Roberto Erazo MR#: [id number]
[2016-12-26] MEDS ORDERED: PEG (High)/E-LYTE SOLN 4000 ML BTL PO ONE (10:00)
[2016-12-26] MEDS ORDERED: DO NOT ADM ANY ANTICOAGULANT DRUGS PRN (10:00)
[2016-12-26] MEDS ORDERED: *morphine SULFATE 8 MG/ML PERIprocedure ONLY ONE (10:22)
[2016-12-26] MEDS: PANTOPRAZOLE SODIUM 40 MG VIAL IV PUSH SCH (10:41)
[2016-12-26] MEDS ORDERED: MIDAZOLAM HCL 2 MG/2 ML VIAL ONE (10:50)
--- NOTE | 2016-12-26 11:05 | RADRPT ---
EXAM DATE/TIME: 12/26/2016 10:13 [place] COMPARISON: CHEST SINGLE AP, December 20, 2016, 6:37. INDICATIONS : Central Line Placement MEDICAL HISTORY : Hiatal hernia. Carcinoma, prostatic. Gastroesophageal reflux disease. SURGICAL HISTORY : Cholecystectomy. Left hip arthroplasty. ENCOUNTER: Initial ACUITY: 1 day PAIN SCORE: 0/10 LOCATION: Bilateral chest FINDINGS: A right jugular central venous catheter has been inserted. Its distal tip is in the right brachioceph alic vein. There is no evidence of pneumothorax. Minimal airspace disease is evident in the left base. Right lung remains clear. Heart and mediastinal structures are stable. CONCLUSION: Satisfactory position of newly placed right internal jugular central venous catheter. Minimal left basilar airspace disease. No evidence of pneumothorax. Arsalan Meza MD on December 26, 2016 at 11:02 Board Certified Radiologist. This report was verified electronically.
--- NOTE | 2016-12-26 11:27 | EKG ---
Date Performed: 12/25/2016 Time Performed: 11:55:13 PTAGE: 61 years EKG: Sinus rhythm NORMAL ECG INTERPRETATION BASED ON A DEFAULT AGE OF 40 YEARS PREVIOUS TRACING : 12/25/2016 07.56 DOCTOR: Matthew Jackson Interpretating Date/Time 12/26/2016 11:21:20
[2016-12-26 12:00] VITALS: BP 138/67; PULSE 72; RESP 18; TEMP 97.4; O2SAT 96
[2016-12-26] MEDS: ALPRAZolam 0.5 MG TAB PO PRN ×2 (16:37→23:34)
[2016-12-26 23:53] LABS: HEMATOCRIT 29.1 % (39.0-51.0)
[2016-12-27] MEDS: MORPHINE SULFATE 4 MG/ML INJ IV PUSH PRN ×6 (01:06→21:11)
[2016-12-27] MEDS: SODIUM CHLOR 0.9% 1000 ML INJ 1,000 ML IV SCH ×3 (02:04→21:31)
[2016-12-27] MEDS ORDERED: TEMAZEPAM 15 MG CAP PO PRN (02:15)
[2016-12-27 04:10] VITALS: BP 119/60; PULSE 61; RESP 18; TEMP 98.4; O2SAT 97
--- NOTE | 2016-12-27 07:35 | HHI.PR ---
Subjective Remarks in no acute distress. still with some rectal bleed. has mild generalized abdominal pain. awaiting colonoscopy. Objective Vitals Vital Signs Date Time Temp Pulse Resp B/P Pulse Ox O2 Delivery O2 Flow Rate FiO2 12/27/16 04:49 16 12/27/16 04:10 98.4 61 18 119/60 97 12/26/16 12:00 97.4 72 18 138/67 96 12/26/16 11:00 98.3 75 20 159/73 97 Nasal Cannula 3 12/26/16 10:45 67 20 154/73 96 Nasal Cannula 3 12/26/16 10:30 68 15 155/70 96 Nasal Cannula 3 12/26/16 10:15 80 15 149/82 95 Nasal Cannula 3 12/26/16 10:05 97.5 89 11 142/75 94 Nasal Cannula 3 I/O 12/26/16 12/26/16 12/26/16 12/27/16 12/27/16 12/27/16 07:00 15:00 23:00 07:00 15:00 23:00 Intake Total 400 ml Output Total 300 ml 0 ml Balance -300 ml 400 ml Intake Oral 0 ml IV Total 100 ml Other 300 ml Output Urine Total 300 ml Estimated Blood Loss 0 ml # Voids 0 Result Diagram: 12/26/16 2340 12/25/16 0820 Imaging Last Impressions Chest X-Ray 12/26/16 0000 Signed Impressions: Service Date/Time: Monday, December 26, 2016 10:13 - CONCLUSION: Satisfactory position of newly placed right internal jugular central venous catheter. Minimal left basilar airspace disease. No evidence of pneumothorax. Arsalan Meza MD Objective Remarks GENERAL: This is a well-nourished, well-developed patient, in no apparent distress. CARDIOVASCULAR: Regular rate and regular rhythm without murmurs, gallops, or rubs. RESPIRATORY: Clear to auscultation. Breath sounds equal bilaterally. No wheezes , rales, or rhonchi. GASTROINTESTINAL: Abdomen soft, non-tender, nondistended. Normal, active bowel sounds MUSCULOSKELETAL: Extremities without clubbing, cyanosis, or edema. NEURO: Alert & Oriented x4 to person, place, time, situation. Moves all ext x4 Procedures EGD central line placement Medications and IVs Current Medications Sodium Chloride (NS Flush) 2 ml UNSCH PRN IV FLUSH FLUSH AFTER USING IV ACCESS Last administered on 12/26/16 05:17; Start 12/25/16 at 08:00 Morphine Sulfate (Morphine Inj) 4 mg ONCE ONCE IV PUSH Last administered on 09:23; Start 12/25/16 at 08:15; Stop 12/25/16 at 08:16; Status DC Ondansetron HCl 4 mg 4 mg ONCE ONCE IV PUSH Last administered on 12/25/16 09: 23; Start 12/25/16 at 08:15; Stop 12/25/16 at 08:16; Status DC Sodium Chloride 1,000 ml @ 999 mls/hr BOLUS ONCE IV Last administered on 09:23; Start 12/25/16 at 08:15; Stop 12/25/16 at 09:15; Status DC Sodium Chloride (NS 1000 ml Inj) 1,000 ml @ 100 mls/hr Q10H IV Last administered on 12/25/16 19:52; Start 12/25/16 at 10:15 Ondansetron HCl (Zofran Inj) 4 mg Q8H PRN IV PUSH NAUSEA Last administered on 15:08; Start 12/25/16 at 10:15 Pantoprazole Sodium (Protonix Inj) 40 mg Q24H IV PUSH Last administered on 10:41; Start 12/25/16 at 11:00 Albuterol Sulfate (Proair Hfa Inh) 2 puff Q6H PRN INH SHORTNESS OF BREATH; Start 12/25/16 at 10:15; Stop 12/26/16 at 02:15; Status DC Morphine Sulfate (Morphine Inj) 2 mg Q4H PRN IV PUSH PAIN 1-10 Last administered on 12/27/16 04:40; Start 12/25/16 at 10:30 Tamsulosin HCl (Flomax) 0.4 mg BID PO Last administered on 12/26/16 11:43; Start 12/25/16 at 15:00 Temazepam (Restoril) 15 mg ONCE ONCE PO Last administered on 12/26/16 00:46; Start 12/26/16 at 01:00; Stop 12/26/16 at 01:01; Status DC Albuterol Sulfate (Ventolin Hfa Inh) 2 puff Q6H PRN INH SHORTNESS OF BREATH Last administered on 12/26/16 02:28; Start 12/26/16 at 02:15 Polyethylene Glycol/ Electrolytes (Colyte Liq) 4,000 ml ONCE ONCE PO Last administered on 12/26/16 11:43; Start 12/26/16 at 10:00; Stop 12/26/16 at 10:05; Status DC Morphine Sulfate (*morphine INJ PERIprocedure ONLY) 8 mg STK-MED ONCE .ROUTE Last administered on 12/26/16 10:22; Start 12/26/16 at 10:22; Stop 12/26/16 at 10: 23; Status DC Miscellaneous Information ALL NURSING DEPARTME... UNSCH PRN .XX SEE LABEL COMMENTS; Start 12/26/16 at 10:00; Stop 12/27/16 at 09:59 Midazolam HCl (Versed Inj) 2 mg STK-MED ONCE .ROUTE ; Start 12/26/16 at 10:50; Stop 12/26/16 at 10:51; Status DC Fentanyl Citrate (fentaNYL INJ) 100 mcg STK-MED ONCE .ROUTE ; Start 12/26/16 at 10:50; Stop 12/26/16 at 10:51; Status DC Alprazolam (Xanax) 0.5 mg Q8H PRN PO ANXIETY Last administered on 12/26/16 23: 34; Start 12/26/16 at 16:15 Propofol (Diprivan 200 Mg/20 ml Inj) 180 mg STK-MED ONCE IV ; Start 12/26/16 at 09:39; Stop 12/26/16 at 18:15; Status DC Temazepam (Restoril) 15 mg HS PRN PO INSOMNIA Last administered on 12/27/16 02: 19; Start 12/27/16 at 02:15 A/P Assessment and Plan A/P - rectal bleed- s/p recent EGD with cautery of duodenal ABM's s/p repeated EGD on 12/26 with : 1. Gastritis antrum-biopsy/esophagitis distal esophagus-biopsy/few small AVM's in gastric body s/p apc/few small avms in duodenum-s/p apc colonoscopy today. continue IV fluid- started PPI- H/H fairly stable. GI following. -history of CVA- hold aspirin- -hypertension; hold BP meds for now in light of GI bleed -history of prostate cancer- f/u as outpatient. -DVT prophylaxis with SCD's- no chemical prophylaxis due to GI bleed. -consult PT. Discharge Planning awaiting GI work-up. Judi Andres MD December 27, 2016 07:35
[2016-12-27 08:08] VITALS: BP 119/60; PULSE 89; RESP 20; TEMP 98.4; O2SAT 97
[2016-12-27] MEDS ORDERED: PROPOFOL 200 MG/20 ML AMP IV ONE (08:29)
--- NOTE | 2016-12-27 08:48 | GIPROC ---
[facility] [address] [facility]. [facility], [address] COLONOSCOPY PROCEDURE REPORT EXAM DATE: 12/27/2016 PATIENT NAME: Roberto Erazo MR #: [id number] BIRTHDATE: 1955 ENDOSCOPIST: Vannessa Saenz MD ORDER #: [id number] SHIFT COMMANDER: Francisco Vides and Ankur Tay STATUS: inpatient INDICATIONS: The patient is a 61 yr old male here for a colonoscopy due to rectal bleeding PROCEDURE PERFORMED: Colonoscopy with ablation MEDICATIONS: None and Per Anesthesia. PREP QUALITY: good PREP TYPE:GoLytely ESTIMATED BLOOD LOSS: None CONSENT: The patient understands the risks and benefits of the procedure and understands that these risks include, but are not limited to: sedation, allergic reaction, infection, perforation and/or bleeding. Alternative means of evaluation and treatment include, among others: physical exam, x-rays, and/or surgical intervention. The patient elects to proceed with this endoscopic procedure. medical equipment was checked for proper function. Hand hygiene and appropriate measures for infection prevention was taken. After the risks, benefits and alternatives of the procedure were thoroughly explained, Informed consent was verified, confirmed and timeout was successfully executed by the treatment team. A digital exam revealed external hemorrhoids The Pentax [id number] endoscope was introduced through the anus and advanced to the cecum, which was identified by both the appendix and ileocecal valve. The instrument was then slowly withdrawn as the colon was fully examined. COLON FINDINGS: Two AVM's in cecum-s/p ablation using balltip diverticulosis sigmoid,descending avms in rectum, two diminutive polyps s/p ablation using balltip. Retroflexed views revealed internal hemorrhoids and Retroflexed views revealed small internal hemorrhoids The scope was then completely withdrawn from the patient and the procedure terminated. PROCEDURE WITHDRAWAL TIME:7minutes ADVERSE EVENTS: There were no complications. IMPRESSIONS: 1. Two AVM's in cecum-s/p ablation using balltip diverticulosis sigmoid,descending avms in rectum, two diminutive polyps s/p ablation using balltip 2. Retroflexed views revealed internal hemorrhoids 3. Retroflexed views revealed small internal hemorrhoids 4. Revealed external hemorrhoids RECOMMENDATIONS: 1. Await biopsy results. Biopsy results will not be ready for 7-10 days. If you don't hear from us in two weeks, call our office for results. 2. Benefiber 2 tsp daily 3. Probiotics from any [employer] or health food store 4. Capsule endoscopy op ok to dc home from gi ppoint fu office gi will sign off RECALL: 1. NONE 2. Return 5 years Colonoscopy Vannessa Saenz MD eSigned: Vannessa Saenz MD 12/27/2016 8:48 AM cc: DOCUMENT ADDENDUM eSigned: Vannessa Saenz MD 12/28/2016 11:23 AM Reason for addendum: [x] Correction of inaccurate information [ ] Recently acquired lab/pathology results [ ] Additional information Comments: no biopsy was performed, just ablation PATIENT NAME: Roberto Erazo MR#: [id number]
[2016-12-27] MEDS: TAMSULOSIN HCL 0.4 MG CAP PO SCH ×2 (09:21→19:59)
[2016-12-27] MEDS: ALPRAZolam 0.5 MG TAB PO PRN ×2 (09:21→16:51)
[2016-12-27] MEDS: ONDANSETRON HCL 4 MG/2 ML VIAL IV PUSH PRN (09:22)
[2016-12-27 10:04] LABS: HEMATOCRIT 31.2 % (39.0-51.0)
[2016-12-27] MEDS: PANTOPRAZOLE SODIUM 40 MG VIAL IV PUSH SCH (11:08)
[2016-12-27 11:32] VITALS: BP 119/58; PULSE 69; RESP 18; TEMP 97.6
--- NOTE | 2016-12-27 13:54 | HHI.DCPOC ---
Discharge Care Plan Diagnosis: (1) Lower GI bleed Your Health Problems Are: Bleeding Tendency Goals to Promote Your Health * To prevent worsening of your condition and complications * To maintain your health at the optimal level Directions to Meet Your Goals Take your medications as prescribed Follow your dietary instruction Follow activity as directed Keep your appointments as scheduled Take your immunizations and boosters as scheduled If your symptoms worsen call your PCP, if no PCP go to Urgent Care Center or Emergency Room Smoking is Dangerous to Your Health. Avoid second hand smoke Call the 24-hour hour crisis hotline for domestic abuse at Judi Andres MD December 27, 2016 13:54
[2016-12-27 16:22] VITALS: BP 131/61; PULSE 63; RESP 18; TEMP 98.7; O2SAT 97
--- NOTE | 2016-12-27 16:25 | HHI.DS ---
Discharge Summary Admission Date December 25, 2016 at 10:15 Discharge Date: December 27, 2016 Admitting Diagnosis GI Bleed (1) GI bleeding ICD Code: K92.2 Diagnosis: Principal Procedures EGD central line placement Brief History - From Admission patient is a 61 y/o male with history of GI bleed- s/p recent EGD with cautery of duodenal AVM's- presented to ER with rectal bleed. he says that when he went to bathroom this morning he had some rectal bleed which he described as coffee- ground stool. he had some nausea but with no emesis. he's complaining of generalized abdominal pain. he says that he thinks he probably fell and has some mild pain to the right knee. he's being followed up by . CBC/BMP: 12/27/16 0949 12/25/16 0820 Significant Findings Laboratory Tests Test 12/25/16 12/25/16 12/25/16 12/25/16 08:20 08:46 18:03 20:59 Red Blood Count 4.01 MIL/MM3 (4.50-5.90) Hemoglobin 11.2 GM/DL 11.7 GM/DL 11.3 GM/DL (13.0-17.0) (13.0-17.0) (13.0-17.0) Hematocrit 34.1 % 37.1 % 35.8 % (39.0-51.0) (39.0-51.0) (39.0-51.0) Red Cell Distribution Width 21.5 % (11.6-17.2) Monocytes (%) (Auto) 10.3 % (0.0-8.0) Eosinophils (%) (Auto) 4.3 % (0.0-4.0) Chloride Level 108 MEQ/L (98-107) Blood Urea Nitrogen 20 MG/DL (7-18) Random Glucose 126 MG/DL (74-106) Total Bilirubin 0.1 MG/DL (0.2-1.0) Aspartate Amino Transf 13 U/L (15-37) (AST/SGOT) Urine Mucus FEW /lpf (OCC) Test 12/26/16 12/26/16 12/27/16 06:19 23:40 09:49 Red Blood Count 3.81 MIL/MM3 (4.50-5.90) Hemoglobin 10.6 GM/DL 9.3 GM/DL 9.8 GM/DL (13.0-17.0) (13.0-17.0) (13.0-17.0) Hematocrit 32.6 % 29.1 % 31.2 % (39.0-51.0) (39.0-51.0) (39.0-51.0) Red Cell Distribution Width 22.2 % (11.6-17.2) Eosinophils (%) (Auto) 9.2 % (0.0-4.0) Eosinophils # (Auto) 0.6 TH/MM3 (0-0.4) Imaging Last Impressions Chest X-Ray 12/26/16 0000 Signed Impressions: Service Date/Time: Monday, December 26, 2016 10:13 - CONCLUSION: Satisfactory position of newly placed right internal jugular central venous catheter. Minimal left basilar airspace disease. No evidence of pneumothorax. Arsalan Meza MD PE at Discharge GENERAL: This is a well-nourished, well-developed patient, in no apparent distress. CARDIOVASCULAR: Regular rate and regular rhythm without murmurs, gallops, or rubs. RESPIRATORY: Clear to auscultation. Breath sounds equal bilaterally. No wheezes , rales, or rhonchi. GASTROINTESTINAL: Abdomen soft, non-tender, nondistended. Normal, active bowel sounds MUSCULOSKELETAL: Extremities without clubbing, cyanosis, or edema. NEURO: Alert & Oriented x4 to person, place, time, situation. Moves all ext x4 Hospital Course - rectal bleed- s/p recent EGD with cautery of duodenal ABM's s/p repeated EGD on 12/26 with : Gastritis antrum-biopsy/esophagitis distal esophagus-biopsy/few small AVM' s in gastric body s/p apc/few small avms in duodenum-s/p apc hiatal hernia colonoscopy with: Two AVM's in cecum-s/p ablation using balltip/diverticulosis sigmoid, descending avms in rectum, two diminutive polyps s/p ablation using balltip Retroflexed views revealed internal hemorrhoids Retroflexed views revealed small internal hemorrhoids Revealed external hemorrhoids continue PPI- H/H fairly stable. GI follow-up as outpatient. -history of CVA- hold aspirin- -hypertension; resume BP meds upon discharge-f/u as outpatient. -history of prostate cancer- f/u as outpatient. Pt Condition on Discharge: Fair Discharge Disposition: Discharge Home Discharge Time: <= 30 minutes Discharge Instructions DIET: Follow Instructions for: Heart Healthy Diet Activities you can perform: Regular-No Restrictions Follow up Referrals: Gastroenterology PCP Follow-up New Medications: Pantoprazole (Protonix) 40 Mg Tab 40 MG PO DAILY Reflux #30 Ref 0 TAB Wheat Dextrin Powder (Benefiber Powder) 1 Scoop Container 1 SCOOP PO DAILY Mix in water or juice Constipation Days 14 Ref 0 CONTAINER Continued Medications: Albuterol 6.7 GM Inh (Proventil Hfa 6.7 GM Inh) 90 Mcg/Act Aer 2 PUFF INH Q6H PRN SHORTNESS OF BREATH #1 Ref 0 INHALER Amlodipine (Amlodipine) 5 Mg Tab 5 MG PO BID Blood Pressure Management #30 Ref 0 TAB Hydrochlorothiazide (Hydrochlorothiazide) 25 Mg Tab 25 MG PO DAILY #30 Ref 0 TAB Hydrocodone-Acetaminophen (Lortab) 10-325 Mg Tab 1 TAB PO Q4H PRN PAIN #7 Ref 0 TAB Metoprolol Succinate ER 24 HR (Metoprolol Succinate ER 24 HR) 50 Mg Tab 50 MG PO BID #30 Ref 0 TAB Pancrelipase (Zenpep) 40,000-136,000-218,000 Units Cap 1 CAP PO TIDPC Digestive Aid #90 Ref 0 CAP Potassium Chloride ER (Potassium Chloride ER) 20 Meq Tab 20 MEQ PO DAILY Electrolyte Replacement #30 Ref 0 TAB Promethazine (Phenergan) 25 Mg Tab 12.5 MG PO Q6H PRN Nausea/Vomiting Ref 0 TAB Tamsulosin (Flomax) 0.4 Mg Cap 0.4 MG PO BID Manage Prostate Problems #30 Ref 0 CAP Temazepam (Temazepam) 30 Mg Cap 30 MG PO HS PRN INSOMNIA #30 Ref 0 CAP Discontinued Medications: Aspirin (Aspirin) 81 Mg Tabdr 81 MG PO DAILY TAB Famotidine (Famotidine) 20 Mg Tab 20 MG PO DAILY #60 Ref 0 TAB Judi Andres MD December 27, 2016 16:25
[2016-12-27] MEDS ORDERED: PROT40TA PO (16:28)
[2016-12-27 19:35] VITALS: BP 138/63; PULSE 78; RESP 18; TEMP 97.8; O2SAT 97
[2016-12-27 23:31] VITALS: BP 112/59; PULSE 78; RESP 18; TEMP 98.4; O2SAT 97
[2016-12-28] MEDS: ONDANSETRON HCL 4 MG/2 ML VIAL IV PUSH PRN (01:02)
[2016-12-28] MEDS: MORPHINE SULFATE 4 MG/ML INJ IV PUSH PRN ×2 (01:02→05:24)
[2016-12-28 04:35] VITALS: BP 113/58; PULSE 73; RESP 16; TEMP 98.7; O2SAT 93
--- NOTE | 2016-12-28 07:27 | HHI.PR ---
Subjective Remarks resting comfortably with no distress. overall doing fine. says that he's ready to go home today. Objective Vitals Vital Signs Date Time Temp Pulse Resp B/P Pulse Ox O2 Delivery O2 Flow Rate FiO2 12/28/16 04:35 98.7 73 16 113/58 93 12/27/16 23:31 98.4 78 18 112/59 97 12/27/16 21:18 16 12/27/16 19:35 97.8 78 18 138/63 97 12/27/16 16:22 98.7 63 18 131/61 97 12/27/16 11:32 97.6 69 18 119/58 12/27/16 09:05 61 18 121/89 95 12/27/16 08:55 64 18 107/66 95 12/27/16 08:45 97.4 74 18 112/85 97 12/27/16 08:08 98.4 89 20 119/60 97 I/O 12/27/16 12/27/16 12/27/16 12/28/16 12/28/16 12/28/16 07:00 15:00 23:00 07:00 15:00 23:00 Intake Total 250 ml Balance 250 ml Other 250 ml Result Diagram: 12/27/16 0949 12/25/16 0820 Imaging Last Impressions Chest X-Ray 12/26/16 0000 Signed Impressions: Service Date/Time: Monday, December 26, 2016 10:13 - CONCLUSION: Satisfactory position of newly placed right internal jugular central venous catheter. Minimal left basilar airspace disease. No evidence of pneumothorax. Arsalan Meza MD Objective Remarks GENERAL: This is a well-nourished, well-developed patient, in no apparent distress. CARDIOVASCULAR: Regular rate and regular rhythm without murmurs, gallops, or rubs. RESPIRATORY: Clear to auscultation. Breath sounds equal bilaterally. No wheezes , rales, or rhonchi. GASTROINTESTINAL: Abdomen soft, non-tender, nondistended. Normal, active bowel sounds MUSCULOSKELETAL: Extremities without clubbing, cyanosis, or edema. NEURO: Alert & Oriented x4 to person, place, time, situation. Moves all ext x4 Procedures EGD central line placement colonoscopy Medications and IVs Current Medications Sodium Chloride (NS Flush) 2 ml UNSCH PRN IV FLUSH FLUSH AFTER USING IV ACCESS Last administered on 12/26/16 05:17; Start 12/25/16 at 08:00 Morphine Sulfate (Morphine Inj) 4 mg ONCE ONCE IV PUSH Last administered on 09:23; Start 12/25/16 at 08:15; Stop 12/25/16 at 08:16; Status DC Ondansetron HCl 4 mg 4 mg ONCE ONCE IV PUSH Last administered on 12/25/16 09: 23; Start 12/25/16 at 08:15; Stop 12/25/16 at 08:16; Status DC Sodium Chloride 1,000 ml @ 999 mls/hr BOLUS ONCE IV Last administered on 09:23; Start 12/25/16 at 08:15; Stop 12/25/16 at 09:15; Status DC Sodium Chloride (NS 1000 ml Inj) 1,000 ml @ 100 mls/hr Q10H IV Last administered on 12/25/16 19:52; Start 12/25/16 at 10:15 Ondansetron HCl (Zofran Inj) 4 mg Q8H PRN IV PUSH NAUSEA Last administered on 01:02; Start 12/25/16 at 10:15 Pantoprazole Sodium (Protonix Inj) 40 mg Q24H IV PUSH Last administered on 11:08; Start 12/25/16 at 11:00 Albuterol Sulfate (Proair Hfa Inh) 2 puff Q6H PRN INH SHORTNESS OF BREATH; Start 12/25/16 at 10:15; Stop 12/26/16 at 02:15; Status DC Morphine Sulfate (Morphine Inj) 2 mg Q4H PRN IV PUSH PAIN 1-10 Last administered on 12/28/16 05:24; Start 12/25/16 at 10:30 Tamsulosin HCl (Flomax) 0.4 mg BID PO Last administered on 12/27/16 19:59; Start 12/25/16 at 15:00 Temazepam (Restoril) 15 mg ONCE ONCE PO Last administered on 12/26/16 00:46; Start 12/26/16 at 01:00; Stop 12/26/16 at 01:01; Status DC Albuterol Sulfate (Ventolin Hfa Inh) 2 puff Q6H PRN INH SHORTNESS OF BREATH Last administered on 12/26/16 02:28; Start 12/26/16 at 02:15 Polyethylene Glycol/ Electrolytes (Colyte Liq) 4,000 ml ONCE ONCE PO Last administered on 12/26/16 11:43; Start 12/26/16 at 10:00; Stop 12/26/16 at 10:05; Status DC Morphine Sulfate (*morphine INJ PERIprocedure ONLY) 8 mg STK-MED ONCE .ROUTE Last administered on 12/26/16 10:22; Start 12/26/16 at 10:22; Stop 12/26/16 at 10: 23; Status DC Miscellaneous Information ALL NURSING DEPARTME... UNSCH PRN .XX SEE LABEL COMMENTS; Start 12/26/16 at 10:00; Stop 12/27/16 at 09:59; Status DC Midazolam HCl (Versed Inj) 2 mg STK-MED ONCE .ROUTE ; Start 12/26/16 at 10:50; Stop 12/26/16 at 10:51; Status DC Fentanyl Citrate (fentaNYL INJ) 100 mcg STK-MED ONCE .ROUTE ; Start 12/26/16 at 10:50; Stop 12/26/16 at 10:51; Status DC Alprazolam (Xanax) 0.5 mg Q8H PRN PO ANXIETY Last administered on 12/27/16 16: 51; Start 12/26/16 at 16:15 Propofol (Diprivan 200 Mg/20 ml Inj) 180 mg STK-MED ONCE IV ; Start 12/26/16 at 09:39; Stop 12/26/16 at 18:15; Status DC Temazepam (Restoril) 15 mg HS PRN PO INSOMNIA Last administered on 12/27/16 02: 19; Start 12/27/16 at 02:15 Propofol (Diprivan 200 Mg/20 ml Inj) 280 mg STK-MED ONCE IV ; Start 12/27/16 at 08:29; Stop 12/27/16 at 08:51; Status DC A/P Assessment and Plan A/P - rectal bleed- s/p recent EGD with cautery of duodenal ABM's s/p repeated EGD on 12/26 with : Gastritis antrum-biopsy/esophagitis distal esophagus-biopsy/few small AVM' s in gastric body s/p apc/few small avms in duodenum-s/p apc s/p colonoscopy with: Two AVM's in cecum-s/p ablation using balltip/diverticulosis sigmoid, descending avms in rectum, two diminutive polyps s/p ablation using balltip Retroflexed views revealed internal hemorrhoids Retroflexed views revealed small internal hemorrhoids Revealed external hemorrhoids GI signed off- f/u as outpatient. -history of CVA- hold aspirin for now- -hypertension; hold BP meds for now in light of GI bleed -history of prostate cancer- f/u as outpatient. -DVT prophylaxis with SCD's- no chemical prophylaxis due to GI bleed. -consult PT. Discharge Planning dc home today with f/u by PCP and GI. see med list. d/w the patient. Judi Andres MD December 28, 2016 07:27
[2016-12-28] MEDS ORDERED: BENEPOW8 PO (07:34)
[2016-12-28 08:13] VITALS: BP 143/65; PULSE 68; RESP 19; TEMP 98.1; O2SAT 98
== END 2016-12-28 09:08 | disposition home or self-care (01) ==
LOC: NEPE 07:32 → NEDA 10:15 → NEPHCDU 13:02
PROVIDERS: ADMIT Internal Medicine; ATTEND Internal Medicine
DX: K63.5 Polyp of colon (principal); K57.30 Diverticulosis of large intestine without perforation or abscess without bleeding; K64.8 Other hemorrhoids; K62.5 Hemorrhage of anus and rectum; K64.4 Residual hemorrhoidal skin tags; K29.50 Unspecified chronic gastritis without bleeding; K31.819 Angiodysplasia of stomach and duodenum without bleeding; K55.20 Angiodysplasia of colon without hemorrhage; K44.9 Diaphragmatic hernia without obstruction or gangrene; K21.0 Gastro-esophageal reflux disease with esophagitis; I10 Essential (primary) hypertension; F17.210 Nicotine dependence, cigarettes, uncomplicated; J44.9 Chronic obstructive pulmonary disease, unspecified; I11.0 Hypertensive heart disease with heart failure; I50.9 Heart failure, unspecified; I25.10 Atherosclerotic heart disease of native coronary artery without angina pectoris; D64.9 Anemia, unspecified; Z86.73 Personal history of transient ischemic attack (TIA), and cerebral infarction without residual deficits; Z85.46 Personal history of malignant neoplasm of prostate; Z96.642 Presence of left artificial hip joint; Z91.041 Radiographic dye allergy status; Z88.5 Allergy status to narcotic agent; Z88.1 Allergy status to other antibiotic agents; Z88.6 Allergy status to analgesic agent; Z88.8 Allergy status to other drugs, medicaments and biological substances
CPT/HCPCS: 43239; 43270; 45388; 71010; 76937; 80053; 81001; 83690; 85014; 85018; 85025; 85610; 85730; 86850; 86900; 86901; 88305; 88312; 93005; 96374; 96375; 97110; 97163; 97530; 99285; C9113; G0378; G8987; G8988; J2250; J2270; J2405; J3010; J7030

== ENCOUNTER 2017-01-02 03:51 | Observation (INO) | payer MEDICAID ==
[~2017-01-02] VITALS: Ht 175.3 cm; Wt 67.0 kg
[~2017-01-02 03:51] MED LIST changes: -ASPI1TAB69 PO; +BENEPOW8 PO; -FAMO20TA2 PO; +PROT40TA PO; +TEMA30CA PO
[2017-01-02 03:55] VITALS: BP 131/70; PULSE 97; RESP 16; TEMP 98.8; O2SAT 99
[2017-01-02] MEDS ORDERED: SODIUM CHLORID 0.9% 500 ML INJ 500 ML IV ONE (04:30)
[2017-01-02] MEDS ORDERED: ONDANSETRON HCL 4 MG/2 ML VIAL IV PUSH ONE ×2 (04:30→05:00)
[2017-01-02] MEDS ORDERED: PANTOPRAZOLE INJ 80 MG in SODIUM CHLORIDE 0.9% INJ 35 ML IV ONE (04:30)
--- NOTE | 2017-01-02 04:37 | PD ---
HPI Chief Complaint: Abdominal Pain Time Seen by Provider: 04:03 Travel History International Travel<30 days: No Contact w/Intl Traveler<30days: No Traveled to known affect area: No History of Present Illness HPI The patient is a 61 year old male who presents to the [facility] emergency department with a history of beginning to not feel well yesterday. He reports that yesterday morning he began to have dysuria with urinary frequency and urgency. He also reports that in the morning he began to have a sensation of feeling constipated. He took 2 doses of milk of magnesia. He then proceeded to have 4 normal bowel movements, however with the fifth bowel movement his stool became black and Tobias. He reports that his recent history is complicated by having a GI bleed. From reviewing the record he was admitted on December 25 related to a GI bleed and has been status post recent EGD with cautery of duodenal AVMs. He is followed by for his GI care. The patient additionally reports that he has prostate cancer. He reports that he has a bladder diverticulum that causes him not to completely evacuate his bladder and predisposes him to urinary tract infections. The patient reports that he's had 6 episodes of dark stool since the onset yesterday afternoon. The patient has had nausea with 2 episodes of vomiting reported. He denies having hematemesis. The patient denies any known recent fevers, cough, congestion, neck pain, chest pain, shortness of breath, or neurologic symptoms. 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, history of prior cerebrovascular accident, history of prostate cancer, history of hypertension, history of anemia , anxiety disorder, history of coronary artery disease, COPD, chronic pancreatitis, acid reflux, glaucoma, osteoarthritis, osteoporosis, myocardial infarction in 2006 Hx Anticoagulant Therapy: Yes Anemia: Yes Arthritis: Yes Asthma: No Blood Disorders: No Anxiety: Yes Depression: No Heart Rhythm Problems: Yes (PATIENT STATES "HEART OCCASIONALLY BEATS OUT OF RHYTHM" [place]) Cancer: Yes Cardiac Catheterization: Yes (2008) Cardiovascular Problems: Yes ([place], CATH) High Cholesterol: No Chest Pain: Yes Congestive Heart Failure: No COPD: No Cerebrovascular Accident: Yes (CVA) Coronary Artery Disease: Yes Diabetes: No Diminished Hearing: No Endocrine: No Gastrointestinal Disorders: Yes (GI Bleed) GERD: Yes Genitourinary: Yes (RETENTION FROM PROSTATE ENLARGEMENT) Headaches: Yes Hiatal Hernia: Yes Hypertension: Yes 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") Implanted Vascular Access Dvce: Yes Musculoskeletal: Yes (LEG WEAKNESS) Neurologic: Yes (CVA, TIA) Psychiatric: No Reproductive: No Respiratory: Yes (LUNG OPERATION) Immunizations Current: Yes Myocardial Infarction: Yes Pancreatitis: Yes Pneumonia: Yes Radiation Therapy: Yes Sleep Apnea: Yes Thyroid Disease: No Ulcer: Yes PNEUMOCCOCAL Vaccine (Year): 1 Past Surgical History Narrative Surgical The patient's past surgical history is significant for lobectomy related to complications from a lung infection, history of cholecystectomy, history of multiple endoscopies, history of right hip surgery, history of cardiac catheterization. Abdominal Surgery: Yes (REPAIR LEAKING BLOOD VESSEL IN RECTUM X3, POLYP REMOVED ) Body Medical Devices: TITANIUM MIKE IN LEFT HIP, BULLET IN RIGHT SHOULDER Cardiac Surgery: Yes (CATH) Cholecystectomy: Yes Joint Replacement: Yes (L hip, L rotator cuff) Thoracic Surgery: Yes (lung reattachment) Other Surgery: Yes (pelvic surgery , lung surgery d/t viral pneumonia) Social History Alcohol Use: No Tobacco Use: Yes (1 cigerett a day ) Substance Use: No Allergies-Medications (Allergen,Severity, Reaction): Coded Allergies: Cardura (Verified Allergy, Severe, SOB,CHEST PAIN, 12/25/16) Cipro (Verified Allergy, Severe, RASH, SWOLLEN FACE, 12/25/16) Codeine (Verified Allergy, Severe, sob, 12/25/16) Contrast Media (Verified Allergy, Severe, BLISTERS AND EDEMA AT SITE, ) Imodium (Verified Allergy, Severe, rash, 12/25/16) BROKE OUT IN RASH, AND SWELLING AROUND NECK Nonsteroidal Anti-Inflammatory Agts (Verified Allergy, Severe, 12/25/16) Spironolactone (Verified Allergy, Severe, Bleeding, 12/25/16) Fentanyl (Verified Allergy, Intermediate, rash, 12/25/16) Corticosteroids (Verified Adverse Reaction, Severe, HEART MURMUR, 12/25/16) MRI PRECAUTION (Verified Adverse Reaction, Severe, SHRAPNEL IN C-SPINE per Dr. Smart 10/26/04, 12/25/16) Uncoded Allergies: FENTYNAL (Allergy, Severe, RASH AND BLISTERS, 12/27/16) PER PATIENT Reported Meds & Prescriptions Reported Meds & Active Scripts Active Lortab (Hydrocodone-Acetaminophen) 10-325 Mg Tab 1 Tab PO Q4H PRN Reported Milk of Magnesia Liq (Magnesium Hydroxide) 400 Mg/5 Ml Susp 30 Ml PO BID PRN Pepcid (Famotidine) 20 Mg Tab 20 Mg PO DAILY Hydrochlorothiazide 25 Mg Tab 25 Mg PO EVERY OTHER DAY Xanax (Alprazolam) 1 Mg Tab 1 Mg PO BID PRN Aspirin Children's (Aspirin) 81 Mg Chew 81 Mg CHEW EVERY OTHER DAY Temazepam 30 Mg Cap 30 Mg PO HS PRN Zenpep (Pancrelipase) 40,000-136,000-218,000 Units Cap 1 Cap PO TIDPC Potassium Chloride ER (Potassium Chloride) 20 Meq Tab 20 Meq PO DAILY Flomax (Tamsulosin HCl) 0.4 Mg Cap 0.4 Mg PO BID Metoprolol Succinate ER 24 HR (Metoprolol Succinate) 50 Mg Tab 50 Mg PO BID Amlodipine (Amlodipine Besylate) 5 Mg Tab 5 Mg PO BID Proventil Hfa 6.7 GM Inh (Albuterol Sulfate) 90 Mcg/Act Aer 2 Puff INH Q6H PRN Phenergan (Promethazine HCl) 25 Mg Tab 12.5 Mg PO Q6H PRN Review of Systems General / Constitutional: No: Fever Eyes: No: Visual changes HENT: No: Headaches Cardiovascular: No: Chest Pain or Discomfort Respiratory: No: Shortness of Breath Gastrointestinal: Positive: Nausea, Vomiting, Diarrhea, Abdominal Pain, Constipation, Changes in Bowel Habits, Indigestion, Loss of Appetite, No: Hematemesis Genitourinary: Positive: Urgency, Frequency, Dysuria, Pelvic Pain, No: Flank Pain Musculoskeletal: No: Pain Skin: No Rash Neurologic: Positive: Weakness (generalized), No: Focal Abnormalities, Change in Mentation, Slurred Speech, Sensory Disturbance Psychiatric: No: Depression Endocrine: No: Polydipsia Hematologic/Lymphatic: No: Easy Bruising Physical Exam Narrative General: The patient is a well-developed well-nourished male in no acute distress. Head and Neck exam: Head is normocephalic atraumatic. Eyes: EOMI, pupils are equal round and reactive to light. Nose: Midline septum with pink mucous membranes Mouth: Dentition unremarkable. Moist mucus membranes. Posterior oropharynx is not erythematous. No tonsillar hypertrophy. Uvula midline. Airway patent. Neck: No palpable lymphadenopathy. No nuchal rigidity. No thyromegaly. Cardiovascular: Regular rate and rhythm without murmurs, gallops, or rubs. Lungs: Clear to auscultation bilaterally. No wheezes, rhonchi, or rales. Abdomen: Soft, with reported discomfort on palpation of the suprapubic area, no other tenderness on palpation of the other quadrants of the abdomen. No guarding, rebound, or rigidity. Normal bowel sounds are audible. No tenderness on palpation of McBurney's point. Negative Kossuth sign. Normal bowel sounds are audible. Extremities: No clubbing, cyanosis, or edema. 2+ pulses in all 4 extremities. No calf tenderness on palpation. Back: No costovertebral angle tenderness to palpation. Neurologic Exam: Grossly nonfocal. Skin Exam: No rash noted. Intact skin that is warm and dry. RECTAL EXAM: No masses or tenderness, stool is brown. Stool is Hemoccult positive. Data Data Last Documented VS Vital Signs Date Time Temp Pulse Resp B/P Pulse Ox O2 Delivery O2 Flow Rate FiO2 01/02/17 03:55 98.8 97 16 131/70 99 Room Air Orders Electrocardiogram (01/02/17 04:24) Complete Blood Count With Diff (01/02/17 04:24) Comprehensive Metabolic Panel (01/02/17 04:24) Creatine Kinase (Cpk) (01/02/17 04:24) Ckmb (Isoenzyme) Profile (01/02/17 04:24) Troponin I (01/02/17 04:24) B-Type Natriuretic Peptide (01/02/17 04:24) Prothrombin Time / Inr (Pt) (01/02/17 04:24) Act Partial Throm Time (Ptt) (01/02/17 04:24) Lipase (01/02/17 04:24) Urinalysis - C+S If Indicated (01/02/17 04:24) Chest, Single Ap (01/02/17 04:24) Iv Access Insert/Monitor (01/02/17 04:24) Ecg Monitoring (01/02/17 04:24) Oximetry (01/02/17 04:24) Type And Screen (01/02/17 04:24) Red Blood Cells (Rbc) (01/02/17 04:24) Sodium Chlorid 0.9% 500 Ml Inj (Ns 500 M (01/02/17 04:30) Ondansetron Inj (Zofran Inj) (01/02/17 04:30) Pantoprazole Inj (Protonix Inj) (01/02/17 04:30) Pantoprazole Inj (Protonix Inj) (01/02/17 04:30) Urine Culture (01/02/17 04:20) Morphine Inj (Morphine Inj) (01/02/17 05:00) Ondansetron Inj (Zofran Inj) (01/02/17 05:00) Ceftriaxone Inj (Rocephin Inj) (01/02/17 05:00) CKMB (01/02/17 04:30) CKMB% (01/02/17 04:30) Admit Order (Ed Use Only) (01/02/17 05:46) Labs Laboratory Tests Test 01/02/17 01/02/17 04:20 04:30 Urine Color YELLOW Urine Turbidity HAZY Urine pH 8.0 Urine Specific [place] 1.018 Urine Protein 100 mg/dL Urine Glucose (UA) NEG mg/dL Urine Ketones NEG mg/dL Urine Occult Blood LARGE Urine Nitrite NEG Urine Bilirubin NEG Urine Urobilinogen LESS THAN 2.0 MG/DL Urine Leukocyte Esterase LARGE Urine RBC /hpf Urine WBC /hpf Urine Bacteria MOD /hpf Microscopic Urinalysis Comment CULTURE INDICATED White Blood Count 12.4 TH/MM3 Red Blood Count 4.29 MIL/MM3 Hemoglobin 11.7 GM/DL Hematocrit 36.8 % Mean Corpuscular Volume 85.8 FL Mean Corpuscular Hemoglobin 27.4 PG Mean Corpuscular Hemoglobin 31.9 % Concent Red Cell Distribution Width 21.9 % Platelet Count 366 TH/MM3 Mean Platelet Volume 7.4 FL Neutrophils (%) (Auto) 77.0 % Lymphocytes (%) (Auto) 12.5 % Monocytes (%) (Auto) 5.8 % Eosinophils (%) (Auto) 3.9 % Basophils (%) (Auto) 0.8 % Neutrophils # (Auto) 9.6 TH/MM3 Lymphocytes # (Auto) 1.5 TH/MM3 Monocytes # (Auto) 0.7 TH/MM3 Eosinophils # (Auto) 0.5 TH/MM3 Basophils # (Auto) 0.1 TH/MM3 CBC Comment DIFF FINAL Differential Comment Prothrombin Time 10.6 SEC Prothromb Time International 1.0 RATIO Ratio Activated Partial 27.0 SEC Thromboplast Time Sodium Level 136 MEQ/L Potassium Level 4.3 MEQ/L Chloride Level 103 MEQ/L Carbon Dioxide Level 24.5 MEQ/L Anion Gap 9 MEQ/L Blood Urea Nitrogen 20 MG/DL Creatinine 1.06 MG/DL Estimat Glomerular Filtration 86 ML/MIN Rate Random Glucose 103 MG/DL Calcium Level 9.5 MG/DL Total Bilirubin 0.3 MG/DL Aspartate Amino Transf 14 U/L (AST/SGOT) Alanine Aminotransferase 24 U/L (ALT/SGPT) Alkaline Phosphatase 109 U/L Total Creatine Kinase 132 U/L Creatine Kinase MB 1.9 NG/ML Troponin I LESS THAN 0.02 NG/ML B-Type Natriuretic Peptide 6 PG/ML Total Protein 8.4 GM/DL Albumin 4.1 GM/DL Lipase 311 U/L Blood Type B POSITIVE Antibody Screen NEGATIVE Crossmatch Leukocyte-Reduced Red Blood Cells Blood Bank Comment MDM Medical Decision Making Medical Screen Exam Complete: Yes Emergency Medical Condition: Yes Medical Record Reviewed: Yes Interpretation(s) Last Impressions Chest X-Ray 01/02/17 0424 Signed Impressions: Service Date/Time: Monday, January 02, 2017 04:39 - CONCLUSION: No acute disease. Bala Franco MD Differential Diagnosis Recurrent GI bleed related to AVM, versus peptic ulcer disease, versus hemorrhagic esophagitis, versus hemorrhoids, versus pyelonephritis, versus cystitis, versus prostatitis Narrative Course During the course of the patients emergency department visit, the patients history, examination, and differential diagnosis were reviewed with the patient. The patient had IV access obtained and blood work sent for analysis. The patient was placed on a threat monitoring analyst with oximetry and blood pressure monitoring. An EKG was done on arrival. The patient's EKG reveals a sinus rhythm heart rate of 84, no acute ST segment elevation or depression, QRS duration is 92 ms, QTC 409 ms. The patient was initially provided normal saline IV fluids, Zofran 4 mg IV, Protonix 80 mg IV followed by a Protonix drip at 8 mg IV per hour. The patient was given morphine for pain, Zofran for nausea. The patients laboratory studies were reviewed and remarkable for white count 12.4, hemoglobin 11.7, platelets 366 with 77 neutrophils, CMP is remarkable for BUN of 20, GFR of 86, AST 14, CPK 139, troponin I less than 0.02, BNP 6, lipase 311, PT 10.6, PTT 27, urinalysis shows 100 protein, large occult blood, large leukocyte esterase, innumerable rbc's, innumerable WBCs, moderate bacteria, culture indicated. The patient was given Rocephin 1 g IV. Radiology studies were reviewed and remarkable for a chest x-ray that shows no acute abnormality. Given the patient's Hemoccult positive stools and history of recurrent GI bleed , the patient was typed and crossmatched for 2 units of packed red blood cells to be placed on hold. The patient will be admitted for monitoring. The patient will be continued on antibiotic for a urinary tract infection. The patients results were discussed with the patient, including the plan of care. I explained that further testing and/ or monitoring is indicated based on the patients history, examination, and/ or laboratory findings. Therefore, I recommended admission for additional evaluation. The patient expressed understanding and was agreeable with this plan. The patient was admitted to the hospital in stable condition and sent to a bed under the care of the [facility] service. HemaPrompt Point of Care Internal Pos. & Neg. Controls: Passed Fecal Specimen Occult Blood: Positive Physician Communication Physician Communication The patient's case was discussed with Dr. Peterson, who did agree to admit the patient for further evaluation and treatment at this time. Diagnosis Primary Impression: GI bleeding Qualified Code: K92.2 - Gastrointestinal hemorrhage, unspecified gastrointestinal hemorrhage type Additional Impression: Urinary tract infection Qualified Code: N39.0 - Urinary tract infection with hematuria, site unspecified Admitting Information Admitting Physician Requests: Admit Kaylie Hernandez MD January 02, 2017 04:37
[2017-01-02 04:42] LABS: AUTOMATED NEUTROPHIL # 9.6 TH/MM3 (1.8-7.7); BASOPHIL # 0.1 TH/MM3 (0-0.2); BASOPHIL % 0.8 % (0.0-2.0); EOSINOPHIL # 0.5 TH/MM3 (0-0.4); EOSINOPHIL % 3.9 % (0.0-4.0); HEMATOCRIT 36.8 % (39.0-51.0); HEMO FLAGS DIFF FINAL; LYMPH % 12.5 % (9.0-44.0); LYMPHOCYTE # 1.5 TH/MM3 (1.0-4.8); MEAN CELL VOLUME 85.8 FL (80.0-100.0); MEAN CORPUSCULAR HEMOGLOBIN 27.4 PG (27.0-34.0); MEAN CORPUSCULAR HGB CONC 31.9 % (32.0-36.0); MONO % 5.8 % (0.0-8.0); PLATELET COUNT 366 TH/MM3 (150-450); RED BLOOD COUNT 4.29 MIL/MM3 (4.50-5.90); RED CELL DISTRIBUTION WIDTH 21.9 % (11.6-17.2); WHITE BLOOD COUNT 12.4 TH/MM3 (4.0-11.0)
[2017-01-02 04:46] LABS: BACTERIA, URINE MOD /hpf; BLOOD, URINE LARGE (NEG); COMMENT (UR) CULTURE INDICATED; CULTURE IF INDICATED CULTURE INDICATED; GLUCOSE,URINE NEG (NEG); KETONE, URINE NEG (NEG); NITRITE,URINE NEG (NEG); URINE COLOR YELLOW (YELLW/STRAW)
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
[2017-01-02] MEDS ORDERED: cefTRIAXone INJ 1,000 MG in SODIUM CHLORIDE 0.9% INJ 100 ML IV ONE (05:00)
[2017-01-02] MEDS ORDERED: MORPHINE SULFATE 4 MG/ML INJ IV PUSH ONE (05:00)
[2017-01-02 05:04] LABS: ALT (GPT) 24 U/L (12-78); ANION GAP 9 MEQ/L (5-15); AST (GOT) 14 U/L (15-37); BICARBONATE 24.5 MEQ/L (21.0-32.0); BLOOD UREA NITROGEN 20 MG/DL (7-18); CHLORIDE 103 MEQ/L (98-107); GLOMERULAR FILTRATION RATE 86 ML/MIN (>89); POTASSIUM 4.3 MEQ/L (3.5-5.1); SODIUM (NA) 136 MEQ/L (136-145)
[2017-01-02 05:07] LABS: PROTHROMBIN TIME - PATIENT 10.6 SEC (9.8-11.6)
[2017-01-02 05:08] LABS: ALKALINE PHOSPHATASE 109 U/L (45-117); CREATINE KINASE 132 U/L (39-308); TOTAL BILIRUBIN ADULT 0.3 MG/DL (0.2-1.0)
[2017-01-02 05:21] LABS: CKMB 1.9 NG/ML (0.5-3.6)
[2017-01-02] MEDS ORDERED: ASPI81CH7 CHEW (05:24)
[2017-01-02] MEDS ORDERED: XANA1TAB2 PO (05:24)
[2017-01-02] MEDS ORDERED: MILKSUS PO (05:24)
[2017-01-02] MEDS ORDERED: HYDR25TA5 PO (05:24)
[2017-01-02] MEDS ORDERED: FAMO1TAB37 PO (05:24)
[2017-01-02] MEDS: PANTOPRAZOLE INJ 80 MG in SODIUM CHLORIDE 0.9% INJ 100 ML IV SCH ×2 (05:34→13:15)
[2017-01-02] MEDS ORDERED: SODIUM CHLORIDE 0.9% FLUSH 10 ML FLUSH IV FLUSH PRN (06:15)
[2017-01-02] MEDS ORDERED: ALPRAZolam 1 MG TAB PO PRN (06:15)
[2017-01-02] MEDS ORDERED: ALBUTEROL SULFATE 90 MCG/ACT HFA 8 GM INHALER INH PRN (06:15)
[2017-01-02] MEDS ORDERED: ACETAMINOPHEN 325 MG TAB PO PRN (06:15)
[2017-01-02] MEDS ORDERED: BISACODYL 10 MG SUPP RECTAL PRN (06:15)
[2017-01-02] MEDS: SODIUM CHLOR 0.9% 1000 ML INJ 1,000 ML IV SCH ×2 (06:22→16:02)
[2017-01-02] MEDS: METOPROLOL SUCCINATE 50 MG EXTENDED RELEASE TAB PO SCH ×2 (07:58→19:59)
[2017-01-02] MEDS: MORPHINE SULFATE 4 MG/ML INJ IV PRN ×6 (07:59→23:03)
[2017-01-02] MEDS: TAMSULOSIN HCL 0.4 MG CAP PO SCH ×2 (07:59→19:59)
[2017-01-02 08:00] VITALS: BP 141/65; PULSE 72; RESP 16; TEMP 96.9; O2SAT 98
--- NOTE | 2017-01-02 08:18 | HHI.HP ---
[facility] Service [place] [facility] Primary Care Physician Ravin Pérez Admission Diagnosis GI Bleed, UTI Diagnoses: Chief Complaint: Abdominal Pain Travel History International Travel<30 Days: No Contact w/Intl Traveler <30 Da: No Traveled to Known Affected Are: No History of Present Illness Readmission This is a pleasant 61 y/o male who came to ER with Dysuria, Increased urinary frequency and urgency, after he took Milk of mag for constipation had GI bleed, he was recently admitted in December 25 due to GI bleed status post EGD and Cautery of Duodenal AVMs, followed by Doctor Letty he has also Prostate Cancer, Bladder diverticulum with recurrent UTIs, has nausea and vomit but not hematemesis, seen in his bedroom in the presence of nurse Miss Burgos, he is stable asking for food explained will need to be evaluated first by GI specialist unsafe at this time to give food due to that he states continue with GI bleed, also symptomatic UTI. Review of Systems Gastrointestinal: COMPLAINS OF: Black stools Genitourinary: COMPLAINS OF: Urinary frequency, Dysuria Past Family Social History Past Medical History Anemia OA Anxiety disorder Prostate Cancer CAD status post PCI CVA GI bleed Urinary Retention Recurrent UTIs Hypertension Pancreatitis LUIS MANUEL Past Surgical History Rectal Surgery for Hemorrhoids and Polyps Left Hip Surgery PCI Cholecystectomy Left rotator Cuff Surgery Lung surgery Reported Medications Reported Meds & Active Scripts Active Lortab (Hydrocodone-Acetaminophen) 10-325 Mg Tab 1 Tab PO Q4H PRN Reported Milk of Magnesia Liq (Magnesium Hydroxide) 400 Mg/5 Ml Susp 30 Ml PO BID PRN Pepcid (Famotidine) 20 Mg Tab 20 Mg PO DAILY Hydrochlorothiazide 25 Mg Tab 25 Mg PO EVERY OTHER DAY Xanax (Alprazolam) 1 Mg Tab 1 Mg PO BID PRN Aspirin Children's (Aspirin) 81 Mg Chew 81 Mg CHEW EVERY OTHER DAY Temazepam 30 Mg Cap 30 Mg PO HS PRN Zenpep (Pancrelipase) 40,000-136,000-218,000 Units Cap 1 Cap PO TIDPC Potassium Chloride ER (Potassium Chloride) 20 Meq Tab 20 Meq PO DAILY Flomax (Tamsulosin HCl) 0.4 Mg Cap 0.4 Mg PO BID Metoprolol Succinate ER 24 HR (Metoprolol Succinate) 50 Mg Tab 50 Mg PO BID Amlodipine (Amlodipine Besylate) 5 Mg Tab 5 Mg PO BID Proventil Hfa 6.7 GM Inh (Albuterol Sulfate) 90 Mcg/Act Aer 2 Puff INH Q6H PRN Phenergan (Promethazine HCl) 25 Mg Tab 12.5 Mg PO Q6H PRN Allergies: Coded Allergies: Cardura (Verified Allergy, Severe, SOB,CHEST PAIN, 12/25/16) Cipro (Verified Allergy, Severe, RASH, SWOLLEN FACE, 12/25/16) Codeine (Verified Allergy, Severe, sob, 12/25/16) Contrast Media (Verified Allergy, Severe, BLISTERS AND EDEMA AT SITE, ) Imodium (Verified Allergy, Severe, rash, 12/25/16) BROKE OUT IN RASH, AND SWELLING AROUND NECK Nonsteroidal Anti-Inflammatory Agts (Verified Allergy, Severe, 12/25/16) Spironolactone (Verified Allergy, Severe, Bleeding, 12/25/16) Fentanyl (Verified Allergy, Intermediate, rash, 12/25/16) Corticosteroids (Verified Adverse Reaction, Severe, HEART MURMUR, 12/25/16) MRI PRECAUTION (Verified Adverse Reaction, Severe, SHRAPNEL IN C-SPINE per Dr. Smart 10/26/04, 12/25/16) Uncoded Allergies: FENTYNAL (Allergy, Severe, RASH AND BLISTERS, 12/27/16) PER PATIENT Active Ordered Medications Current Medications Medications (Trade) Dose Ordered Sig/Juan José Route Start Time Stop Time Status Last Admin Pantoprazole Sodium 80 mg/ Sodium Chloride 100 ml @ 10 mls/hr CONTINUOUS IV 01/02/17 04:30 01/02/17 05:34 (NS 1000 ml Inj) 1,000 ml @ 100 mls/hr Q10H IV 01/02/17 06:02 01/02/17 06:22 (NS Flush) 2 ml UNSCH PRN IV FLUSH 01/02/17 06:15 (NS Flush) 2 ml BID IV FLUSH 01/02/17 09:00 (Zofran Inj) 4 mg Q6H PRN IVP 01/02/17 06:15 (Dulcolax Supp) 10 mg DAILY PRN RECTAL 01/02/17 06:15 (Tylenol) 650 mg Q6H PRN PO 01/02/17 06:15 Morphine Sulfate 2 mg 2 mg Q3H PRN IV 01/02/17 06:15 01/02/17 07:59 (Rocephin Inj/NS Inj) 100 ml @ 200 mls/hr Q24H IV 01/03/17 06:00 (Proair Hfa Inh) 2 puff Q6H PRN INH 01/02/17 06:15 (Xanax) 1 mg BID PRN PO 01/02/17 06:15 (Toprol Xl) 50 mg BID PO 01/02/17 09:00 01/02/17 07:58 (Flomax) 0.4 mg BID PO 01/02/17 09:00 01/02/17 07:59 (Restoril) 30 mg HS PRN PO 01/02/17 06:15 Family History asked and denied for Hypertension, DM II or Cancer. Social History Was heavy alcohol dependent patient, Tobacco dependence continue he states only one Cigarette daily. Physical Exam Vital Signs Vital Signs Date Time Temp Pulse Resp B/P Pulse Ox O2 Delivery O2 Flow Rate FiO2 01/02/17 03:55 98.8 97 16 131/70 99 Room Air Physical Exam GENERAL: No apparent distress. SKIN: No rashes, ecchymoses or lesions. Cool and dry. HEAD: Atraumatic. Normocephalic. No temporal or scalp tenderness. EYES: Pupils equal round and reactive. Extraocular motions intact. No scleral icterus. No injection or drainage. ENT: Nose without bleeding, purulent drainage or septal hematoma. Throat without erythema, tonsillar hypertrophy or exudate. Uvula midline. Airway patent. NECK: Trachea midline. No JVD or lymphadenopathy. Supple, nontender, no meningeal signs. CARDIOVASCULAR: Regular rate and rhythm without murmurs, gallops, or rubs. RESPIRATORY: Clear to auscultation. Breath sounds equal bilaterally. No wheezes , rales, or rhonchi. GASTROINTESTINAL: Abdomen soft, non-tender, nondistended. No hepato-splenomegaly , or palpable masses. No guarding. MUSCULOSKELETAL: Extremities without clubbing, cyanosis, or edema. No joint tenderness, effusion, or edema noted. No calf tenderness. Negative Homans sign bilaterally. NEUROLOGICAL: Awake and alert. Cranial nerves II through XII intact. Motor and sensory grossly within normal limits. Five out of 5 muscle strength in all muscle groups. Normal speech. Laboratory Laboratory Tests Test 01/02/17 01/02/17 04:20 04:30 Urine Color YELLOW Urine Turbidity HAZY Urine pH 8.0 Urine Specific [place] 1.018 Urine Protein 100 Urine Glucose (UA) NEG Urine Ketones NEG Urine Occult Blood LARGE Urine Nitrite NEG Urine Bilirubin NEG Urine Urobilinogen LESS THAN 2.0 Urine Leukocyte Esterase LARGE Urine RBC Urine WBC Urine Bacteria MOD Microscopic Urinalysis Comment CULTURE INDICATED White Blood Count 12.4 Red Blood Count 4.29 Hemoglobin 11.7 Hematocrit 36.8 Mean Corpuscular Volume 85.8 Mean Corpuscular Hemoglobin 27.4 Mean Corpuscular Hemoglobin 31.9 Concent Red Cell Distribution Width 21.9 Platelet Count 366 Mean Platelet Volume 7.4 Neutrophils (%) (Auto) 77.0 Lymphocytes (%) (Auto) 12.5 Monocytes (%) (Auto) 5.8 Eosinophils (%) (Auto) 3.9 Basophils (%) (Auto) 0.8 Neutrophils # (Auto) 9.6 Lymphocytes # (Auto) 1.5 Monocytes # (Auto) 0.7 Eosinophils # (Auto) 0.5 Basophils # (Auto) 0.1 CBC Comment DIFF FINAL Differential Comment Prothrombin Time 10.6 Prothromb Time International 1.0 Ratio Activated Partial 27.0 Thromboplast Time Sodium Level 136 Potassium Level 4.3 Chloride Level 103 Carbon Dioxide Level 24.5 Anion Gap 9 Blood Urea Nitrogen 20 Creatinine 1.06 Estimat Glomerular Filtration 86 Rate Random Glucose 103 Calcium Level 9.5 Total Bilirubin 0.3 Aspartate Amino Transf 14 (AST/SGOT) Alanine Aminotransferase 24 (ALT/SGPT) Alkaline Phosphatase 109 Total Creatine Kinase 132 Creatine Kinase MB 1.9 Troponin I LESS THAN 0.02 B-Type Natriuretic Peptide 6 Total Protein 8.4 Albumin 4.1 Lipase 311 Blood Type B POSITIVE Antibody Screen NEGATIVE Crossmatch Leukocyte-Reduced Red Blood Cells Blood Bank Comment Date/Time Procedure Status Source Growth 01/02/17 04:20 Urine Culture Received Urine Clean Catch Pending Result Diagram: 01/02/1742901/02/17429 Imaging Last Impressions Chest X-Ray 01/02/17423 Signed Impressions: Service Date/Time: Monday, January 02, 2017 04:39 - CONCLUSION: No acute disease. Bala Franco MD Assessment and Plan Assessment and Plan 1. Recurrent GI bleed related to AVM, IV access obtained, hydrated, following H and H, Protonix Drip, GI specialist consulted 2. UTI asked for Urine Culture and started on Ceftriaxone. 3. Anxiety disorder continue Home medicines 4. Hypertension continue Home medicines 5. Prostate Cancer history/Urinary retention and recurrent UTI by history 6. CAD status post PCI continue BB 7. CVA by history 8. Recurrent Pancreatitis continue Pancreatic enzymes DVT prophylaxis with SCDs Code Status Full Code. Discussed Condition With Patient and nurse Miss Burgos, all questions answered to the best of my abilities. Physician Certification 2 Midnight Certification Type: Admission for Inpatient Services Order for Inpatient Services The services are ordered in accordance with Medicare regulations or non- Medicare payer requirements, as applicable. In the case of services not specified as inpatient-only, they are appropriately provided as inpatient services in accordance with the 2-midnight benchmark. Estimated LOS (days): 3 days is the estimated time the patient will need to remain in the hospital, assuming treatment plan goals are met and no additional complications. Post-Hospital Plan: Not yet determined Robert Smith MD January 02, 2017 08:18
[2017-01-02] MEDS: SODIUM CHLORIDE 0.9% FLUSH 10 ML FLUSH IV FLUSH SCH ×2 (09:00→20:03)
[2017-01-02 12:00] VITALS: BP 155/76; PULSE 67; RESP 17; TEMP 96.2; O2SAT 97
[2017-01-02 12:27] LABS: HEMATOCRIT 36.9 % (39.0-51.0); REVIEW FLAG FINAL
[2017-01-02] MEDS: LIPASE/PROTEASE/AMYLASE (24,000/76,000/120,000) CAP PO SCH ×3 (13:14→16:57)
--- NOTE | 2017-01-02 14:45 | EKG ---
Date Performed: 01/02/2017 Time Performed: 04:45:28 PTAGE: 61 years EKG: Sinus rhythm NORMAL ECG Compared to prior tracing no significant change PREVIOUS TRACING : 12/25/2016 11.55 DOCTOR: Arnaud Parrish Interpretating Date/Time 01/03/2017 09:20:45
--- NOTE | 2017-01-02 15:26 | PD.CONS ---
HPI History of Present Illness This is a 61 year old male who is well know by [facility]. He has had numerous EGD and colonoscopy for GI bleed and had scopes performed a few weeks ago. He had AVMs and had them cauterized at that time. He had a few polyps on the colonoscopy as well. Yesterday he reports he had some emesis with streaks of blood. He also had black stools but no bright red blood. He is hungry now and wants tohave some food. He is wanting to have another EGD and Colonoscopy if I feel it would be helpful. He also is having lower abdominal pain that is dull, radiating to his left leg. He has severe burning upon urination. He thinks he has a UTI. He has a history of prostate cancer. He thinks it has returned. []. PFSH Past Medical History Anemia OA Anxiety disorder Prostate Cancer CAD status post PCI CVA GI bleed Urinary Retention Recurrent UTIs Hypertension Pancreatitis LUIS MANUEL Past Surgical History Rectal Surgery for Hemorrhoids and Polyps Left Hip Surgery PCI Cholecystectomy Left rotator Cuff Surgery Lung surgery Coded Allergies: Cardura (Verified Allergy, Severe, SOB,CHEST PAIN, 12/25/16) Cipro (Verified Allergy, Severe, RASH, SWOLLEN FACE, 12/25/16) Codeine (Verified Allergy, Severe, sob, 12/25/16) Contrast Media (Verified Allergy, Severe, BLISTERS AND EDEMA AT SITE, ) Imodium (Verified Allergy, Severe, rash, 12/25/16) BROKE OUT IN RASH, AND SWELLING AROUND NECK Nonsteroidal Anti-Inflammatory Agts (Verified Allergy, Severe, 12/25/16) Spironolactone (Verified Allergy, Severe, Bleeding, 12/25/16) Fentanyl (Verified Allergy, Intermediate, rash, 12/25/16) Corticosteroids (Verified Adverse Reaction, Severe, HEART MURMUR, 12/25/16) MRI PRECAUTION (Verified Adverse Reaction, Severe, SHRAPNEL IN C-SPINE per Dr. Smart 10/26/04, 12/25/16) Uncoded Allergies: FENTYNAL (Allergy, Severe, RASH AND BLISTERS, 12/27/16) PER PATIENT Medications Current Medications Medications (Trade) Dose Ordered Sig/Juan José Route Start Time Stop Time Status Last Admin Pantoprazole Sodium 80 mg/ Sodium Chloride 100 ml @ 10 mls/hr CONTINUOUS IV 01/02/17 04:30 01/02/17 13:15 (NS 1000 ml Inj) 1,000 ml @ 100 mls/hr Q10H IV 01/02/17 06:02 01/02/17 06:22 (NS Flush) 2 ml UNSCH PRN IV FLUSH 01/02/17 06:15 (NS Flush) 2 ml BID IV FLUSH 01/02/17 09:00 (Zofran Inj) 4 mg Q6H PRN IVP 01/02/17 06:15 (Dulcolax Supp) 10 mg DAILY PRN RECTAL 01/02/17 06:15 (Tylenol) 650 mg Q6H PRN PO 01/02/17 06:15 Morphine Sulfate 2 mg 2 mg Q3H PRN IV 01/02/17 06:15 01/02/17 13:54 (Rocephin Inj/NS Inj) 100 ml @ 200 mls/hr Q24H IV 01/03/17 06:00 (Proair Hfa Inh) 2 puff Q6H PRN INH 01/02/17 06:15 (Xanax) 1 mg BID PRN PO 01/02/17 06:15 (Toprol Xl) 50 mg BID PO 01/02/17 09:00 01/02/17 07:58 (Flomax) 0.4 mg BID PO 01/02/17 09:00 01/02/17 07:59 (Restoril) 30 mg HS PRN PO 01/02/17 06:15 (Norvasc) 5 mg BID PO 01/02/17 21:00 (Creon [id number]) 2 cap TIDPC PO 01/02/17 13:30 Family History asked and denied for Hypertension, DM II or Cancer. Social History Was heavy alcohol dependent patient, Tobacco dependence continue he states only one Cigarette daily. Review of Systems Gastrointestinal: COMPLAINS OF: Abdominal pain, Black stools, Bloody stools, Constipation, Diarrhea, Nausea, Vomiting, Difficulty Swallowing, Anorexia, Odynophagia, Swelling of Abdomen, Heartburn, Hematemesis Genitourinary: COMPLAINS OF: Urinary frequency, Urinary incontinence, Urgency, Hematuria, Dysuria, Nocturia GI Exam Vitals I&O Vital Signs Date Time Temp Pulse Resp B/P Pulse Ox O2 Delivery O2 Flow Rate FiO2 01/02/17 12:00 96.2 67 17 155/76 97 01/02/17 08:00 96.9 72 16 141/65 98 01/02/17 03:55 98.8 97 16 131/70 99 Room Air I/O 01/01/17 01/01/17 01/01/17 01/02/17 01/02/17 01/02/17 07:00 15:00 23:00 07:00 15:00 23:00 Intake Total 874 ml Balance 874 ml Intake IV Total 874 ml Imaging Vital Signs Date Time Temp Pulse Resp B/P Pulse Ox O2 Delivery O2 Flow Rate FiO2 01/02/17 12:00 96.2 67 17 155/76 97 01/02/17 08:00 96.9 72 16 141/65 98 01/02/17 03:55 98.8 97 16 131/70 99 Room Air Laboratory Test 01/02/17 01/02/17 01/02/17 04:20 04:30 11:56 Urine Color YELLOW Urine Turbidity HAZY Urine pH 8.0 Urine Specific [place] 1.018 Urine Protein 100 mg/dL Urine Glucose (UA) NEG mg/dL Urine Ketones NEG mg/dL Urine Occult Blood LARGE Urine Nitrite NEG Urine Bilirubin NEG Urine Urobilinogen LESS THAN 2.0 MG/DL Urine Leukocyte Esterase LARGE Urine RBC /hpf Urine WBC /hpf Urine Bacteria MOD /hpf Microscopic Urinalysis Comment CULTURE INDICATED White Blood Count 12.4 TH/MM3 Red Blood Count 4.29 MIL/MM3 Hemoglobin 11.7 GM/DL 11.5 GM/DL Hematocrit 36.8 % 36.9 % Mean Corpuscular Volume 85.8 FL Mean Corpuscular Hemoglobin 27.4 PG Mean Corpuscular Hemoglobin 31.9 % Concent Red Cell Distribution Width 21.9 % Platelet Count 366 TH/MM3 Mean Platelet Volume 7.4 FL Neutrophils (%) (Auto) 77.0 % Lymphocytes (%) (Auto) 12.5 % Monocytes (%) (Auto) 5.8 % Eosinophils (%) (Auto) 3.9 % Basophils (%) (Auto) 0.8 % Neutrophils # (Auto) 9.6 TH/MM3 Lymphocytes # (Auto) 1.5 TH/MM3 Monocytes # (Auto) 0.7 TH/MM3 Eosinophils # (Auto) 0.5 TH/MM3 Basophils # (Auto) 0.1 TH/MM3 CBC Comment DIFF FINAL Differential Comment Prothrombin Time 10.6 SEC Prothromb Time International 1.0 RATIO Ratio Activated Partial 27.0 SEC Thromboplast Time Sodium Level 136 MEQ/L Potassium Level 4.3 MEQ/L Chloride Level 103 MEQ/L Carbon Dioxide Level 24.5 MEQ/L Anion Gap 9 MEQ/L Blood Urea Nitrogen 20 MG/DL Creatinine 1.06 MG/DL Estimat Glomerular Filtration 86 ML/MIN Rate Random Glucose 103 MG/DL Calcium Level 9.5 MG/DL Total Bilirubin 0.3 MG/DL Aspartate Amino Transf 14 U/L (AST/SGOT) Alanine Aminotransferase 24 U/L (ALT/SGPT) Alkaline Phosphatase 109 U/L Total Creatine Kinase 132 U/L Creatine Kinase MB 1.9 NG/ML Troponin I LESS THAN 0.02 NG/ML B-Type Natriuretic Peptide 6 PG/ML Total Protein 8.4 GM/DL Albumin 4.1 GM/DL Lipase 311 U/L Blood Type B POSITIVE Antibody Screen NEGATIVE Crossmatch Leukocyte-Reduced Red Blood Cells Blood Bank Comment Date/Time Procedure Status Source Growth 01/02/17 04:20 Urine Culture Received Urine Clean Catch Pending Physical Examination CBC & BMP Diagram 01/02/17 04:30 01/02/17 11:56 HEENT: Pupils round and reactive to light; normocephalic; atraumatic; no jaundice. Throat is clear. NECK: Neck is supple, no JVD, no lymphadenopathy. CHEST: Chest is clear to auscultation and percussion. CARDIAC: Regular rate and rhythm with no murmur gallop or rubs. ABDOMEN: Soft, nondistended, nontender; no hepatosplenomegaly; bowel sounds are present in all four quadrants. EXTREMITIES: No clubbing, cyanosis, or edema. SKIN: Normal; no rash; no jaundice. PEGGER DOBBY LOOMS: No focal deficits; alert and oriented times three. Assessment and Plan Plan Impression: GI blood loss but Hct is stable. He has known AVMs and was recently treated. Prostate cancer Possible UTI. Plan: CT Abdomen and Pelvis without contrast. Regular diet. Follow H/H Aashish Jerez MD January 02, 2017 15:26
[2017-01-02 16:00] VITALS: BP 142/72; PULSE 68; RESP 17; TEMP 96.2; O2SAT 97
[2017-01-02] MEDS: amLODIPine BESYLATE 5 MG TAB PO SCH (19:59)
[2017-01-02 20:00] VITALS: BP 144/76; PULSE 63; RESP 18; TEMP 96.5; O2SAT 96
[2017-01-02] MEDS: TEMAZEPAM 15 MG CAP PO PRN (21:34)
[2017-01-02] MEDS ORDERED: PANTOPRAZOLE INJ 80 MG in SODIUM CHLORIDE 0.9% INJ 100 ML IV SCH (22:45)
[2017-01-03] VITALS: BP 117/62; PULSE 73; RESP 18; TEMP 97.6; O2SAT 95
[2017-01-03] MEDS: SODIUM CHLOR 0.9% 1000 ML INJ 1,000 ML IV SCH ×3 (02:02→19:49)
[2017-01-03] MEDS: MORPHINE SULFATE 4 MG/ML INJ IV PRN ×7 (02:05→21:24)
[2017-01-03 04:00] VITALS: BP 111/62; PULSE 68; RESP 18; TEMP 97.3; O2SAT 95
[2017-01-03] MEDS: cefTRIAXone INJ 1,000 MG in SODIUM CHLORIDE 0.9% INJ 100 ML IV SCH (04:53)
[2017-01-03 06:23] LABS: HEMATOCRIT 33.6 % (39.0-51.0); MEAN CELL VOLUME 86.5 FL (80.0-100.0); MEAN CORPUSCULAR HEMOGLOBIN 27.1 PG (27.0-34.0); MEAN CORPUSCULAR HGB CONC 31.3 % (32.0-36.0); PLATELET COUNT 292 TH/MM3 (150-450); RED BLOOD COUNT 3.88 MIL/MM3 (4.50-5.90); RED CELL DISTRIBUTION WIDTH 21.3 % (11.6-17.2); WHITE BLOOD COUNT 7.5 TH/MM3 (4.0-11.0)
[2017-01-03 06:40] LABS: ALKALINE PHOSPHATASE 98 U/L (45-117); ALT (GPT) 16 U/L (12-78); ANION GAP 9 MEQ/L (5-15); AST (GOT) 10 U/L (15-37); BLOOD UREA NITROGEN 16 MG/DL (7-18); CHLORIDE 110 MEQ/L (98-107); GLOMERULAR FILTRATION RATE 117 ML/MIN (>89); POTASSIUM 4.4 MEQ/L (3.5-5.1); SODIUM (NA) 141 MEQ/L (136-145); TOTAL BILIRUBIN ADULT 0.2 MG/DL (0.2-1.0)
[2017-01-03 06:41] LABS: HEMO FLAGS AUTO DIFF
[2017-01-03 07:58] LABS: BANDS 7 % (0-6); BASOPHILS 3 % (0-2); EOSINOPHILS 7 % (0-4); NEUTROPHIL # MANUAL DIFF 5.6 TH/MM3 (1.8-7.7); PLATELET ESTIMATE SMEAR NORMAL (NORMAL); PLATELET MORPHOLOGY NORMAL (NORMAL); POLYS (SEG NEUTROPHILS) 67 % (16-70); WBC DIFF SAMPLE 100
[2017-01-03 07:59] LABS: ACANTHOCYTES OCC (NORMAL); HELMET CELLS OCC (NORMAL); SCAN/DIFF FINAL DIFF MANUAL
[2017-01-03 08:00] VITALS: BP 124/65; PULSE 68; RESP 17; TEMP 98.1; O2SAT 98
[2017-01-03] MEDS: SODIUM CHLORIDE 0.9% FLUSH 10 ML FLUSH IV FLUSH SCH ×2 (08:03→19:49)
[2017-01-03] MEDS: METOPROLOL SUCCINATE 50 MG EXTENDED RELEASE TAB PO SCH ×2 (08:04→19:47)
[2017-01-03] MEDS: amLODIPine BESYLATE 5 MG TAB PO SCH ×2 (08:04→19:47)
[2017-01-03] MEDS: LIPASE/PROTEASE/AMYLASE (24,000/76,000/120,000) CAP PO SCH ×3 (08:05→18:19)
[2017-01-03] MEDS: TAMSULOSIN HCL 0.4 MG CAP PO SCH ×2 (08:05→19:47)
[2017-01-03] MEDS: ONDANSETRON HCL 4 MG/2 ML VIAL IVP PRN (10:58)
--- NOTE | 2017-01-03 11:44 | HHI.PR ---
Subjective Remarks This is a pleasant 61 y/o male who came to ER with Dysuria, Increased urinary frequency and urgency, after he took Milk of mag for constipation had GI bleed, he was recently admitted in December 25 due to GI bleed status post EGD and Cautery of Duodenal AVMs, followed by Doctor Letty he has also Prostate Cancer, Bladder diverticulum with recurrent UTIs, has nausea and vomit but not hematemesis, seen in his bedroom in the presence of nurse Miss Burgos, he is stable asking for food explained will need to be evaluated first by GI specialist unsafe at this time to give food due to that he states continue with GI bleed, also symptomatic UTI. 01/03: Stable seen by GI specialist, as per GI he had S/P Recent EGD (12/26/16)--- > 1. Gastritis antrum-biopsy esophagitis distal esophagus-biopsy, few small AVM's in gastric body s/p apc, few small avms in duodenum-s/p apc, 2. Retroflexed views revealed a hiatal hernia. Colonoscopy (12/27/16)----> 1. Two AVM's in cecum-s/p ablation using balltip diverticulosis sigmoid,descending avms in rectum, two diminutive polyps s/p ablation using balltip 2. Retroflexed views revealed internal hemorrhoids 3. Retroflexed views revealed small internal hemorrhoids 4. Revealed external hemorrhoids. HH stable, improved since last hospitalization. started diet and recommended CT abdomen and monitor H and H. No nausea, vomit no diarrhea continue with Melenic stools. Objective Vital Signs Date Time Temp Pulse Resp B/P Pulse Ox O2 Delivery O2 Flow Rate FiO2 01/03/17 08:00 98.1 68 17 124/65 98 01/03/17 04:00 97.3 68 18 111/62 95 01/03/17 00:00 97.6 73 18 117/62 95 01/02/17 20:00 96.5 63 18 144/76 96 01/02/17 16:00 96.2 68 17 142/72 97 01/02/17 12:00 96.2 67 17 155/76 97 I/O 01/02/17 01/02/17 01/02/17 01/03/17 01/03/17 01/03/17 07:00 15:00 23:00 07:00 15:00 23:00 Intake Total 874 ml 1308 ml 984 ml 240 ml Output Total 575 ml 175 ml 300 ml 300 ml Balance 299 ml 1133 ml 684 ml -60 ml Intake Oral 0 ml 680 ml 240 ml IV Total 874 ml 628 ml 984 ml Output Urine Total 575 ml 175 ml 300 ml 300 ml Bladder Scan Volume Amount 120 ml # Bowel Movements 0 0 0 Result Diagram: 01/03/17 0537 01/03/17 0537 Imaging Last Impressions Chest X-Ray 01/02/17 0424 Signed Impressions: Service Date/Time: Monday, January 02, 2017 04:39 - CONCLUSION: No acute disease. Bala Franco MD Procedures No procedures performed. Other Results Laboratory Tests Test 01/02/17 01/02/17 01/03/17 04:20 04:30 05:37 Urine Color YELLOW Urine Turbidity HAZY Urine pH 8.0 Urine Specific [place] 1.018 Urine Protein 100 mg/dL Urine Glucose (UA) NEG mg/dL Urine Ketones NEG mg/dL Urine Occult Blood LARGE Urine Nitrite NEG Urine Bilirubin NEG Urine Urobilinogen LESS THAN 2.0 MG/DL Urine Leukocyte Esterase LARGE Urine RBC /hpf Urine WBC /hpf Urine Bacteria MOD /hpf Microscopic Urinalysis Comment CULTURE INDICATED Prothrombin Time 10.6 SEC Prothromb Time International 1.0 RATIO Ratio Activated Partial 27.0 SEC Thromboplast Time Total Creatine Kinase 132 U/L Creatine Kinase MB 1.9 NG/ML Troponin I LESS THAN 0.02 NG/ML B-Type Natriuretic Peptide 6 PG/ML Lipase 311 U/L Blood Type B POSITIVE Antibody Screen NEGATIVE Crossmatch Leukocyte-Reduced Red Blood Cells Blood Bank Comment White Blood Count 7.5 TH/MM3 Red Blood Count 3.88 MIL/MM3 Hemoglobin 10.5 GM/DL Hematocrit 33.6 % Mean Corpuscular Volume 86.5 FL Mean Corpuscular Hemoglobin 27.1 PG Mean Corpuscular Hemoglobin 31.3 % Concent Red Cell Distribution Width 21.3 % Platelet Count 292 TH/MM3 Mean Platelet Volume 7.7 FL Neutrophils (%) (Auto) % Lymphocytes (%) (Auto) % Monocytes (%) (Auto) % Eosinophils (%) (Auto) % Basophils (%) (Auto) % Neutrophils # (Auto) TH/MM3 Lymphocytes # (Auto) TH/MM3 Monocytes # (Auto) TH/MM3 Eosinophils # (Auto) TH/MM3 Basophils # (Auto) TH/MM3 CBC Comment AUTO DIFF Differential Total Cells 100 Counted Neutrophils % (Manual) 67 % Band Neutrophils % 7 % Lymphocytes % 12 % Monocytes % 4 % Eosinophils % 7 % Basophils % 3 % Neutrophils # (Manual) 5.6 TH/MM3 Differential Comment FINAL DIFF MANUAL Platelet Estimate NORMAL Platelet Morphology Comment NORMAL Helmet Cells OCC Acanthocytes OCC Sodium Level 141 MEQ/L Potassium Level 4.4 MEQ/L Chloride Level 110 MEQ/L Carbon Dioxide Level 22.0 MEQ/L Anion Gap 9 MEQ/L Blood Urea Nitrogen 16 MG/DL Creatinine 0.81 MG/DL Estimat Glomerular Filtration 117 ML/MIN Rate Random Glucose 112 MG/DL Calcium Level 8.7 MG/DL Total Bilirubin 0.2 MG/DL Aspartate Amino Transf 10 U/L (AST/SGOT) Alanine Aminotransferase 16 U/L (ALT/SGPT) Alkaline Phosphatase 98 U/L Total Protein 6.6 GM/DL Albumin 3.1 GM/DL Objective Remarks GENERAL: No apparent distress. SKIN: No rashes, ecchymoses or lesions. Cool and dry. HEAD: Atraumatic. Normocephalic. No temporal or scalp tenderness. EYES: Pupils equal round and reactive. Extraocular motions intact. No scleral icterus. No injection or drainage. ENT: Nose without bleeding, purulent drainage or septal hematoma. Throat without erythema, tonsillar hypertrophy or exudate. Uvula midline. Airway patent. NECK: Trachea midline. No JVD or lymphadenopathy. Supple, nontender, no meningeal signs. CARDIOVASCULAR: Regular rate and rhythm without murmurs, gallops, or rubs. RESPIRATORY: Clear to auscultation. Breath sounds equal bilaterally. No wheezes , rales, or rhonchi. GASTROINTESTINAL: Abdomen soft, non-tender, nondistended. No hepato-splenomegaly , or palpable masses. No guarding. MUSCULOSKELETAL: Extremities without clubbing, cyanosis, or edema. No joint tenderness, effusion, or edema noted. No calf tenderness. Negative Homans sign bilaterally. NEUROLOGICAL: Awake and alert. Cranial nerves II through XII intact. Motor and sensory grossly within normal limits. Five out of 5 muscle strength in all muscle groups. Normal speech. Medications and IVs Current Medications Medications (Trade) Dose Ordered Sig/Juan José Route Start Time Stop Time Status Last Admin (NS 1000 ml Inj) 1,000 ml @ 100 mls/hr Q10H IV 01/02/17 06:02 01/02/17 16:02 (NS Flush) 2 ml UNSCH PRN IV FLUSH 01/02/17 06:15 (NS Flush) 2 ml BID IV FLUSH 01/02/17 09:00 (Zofran Inj) 4 mg Q6H PRN IVP 01/02/17 06:15 01/03/17 10:58 (Dulcolax Supp) 10 mg DAILY PRN RECTAL 01/02/17 06:15 (Tylenol) 650 mg Q6H PRN PO 01/02/17 06:15 Morphine Sulfate 2 mg 2 mg Q3H PRN IV 01/02/17 06:15 01/03/17 10:58 (Rocephin Inj/NS Inj) 100 ml @ 200 mls/hr Q24H IV 01/03/17 06:00 01/03/17 04:53 (Proair Hfa Inh) 2 puff Q6H PRN INH 01/02/17 06:15 (Xanax) 1 mg BID PRN PO 01/02/17 06:15 (Toprol Xl) 50 mg BID PO 01/02/17 09:00 01/03/17 08:04 (Flomax) 0.4 mg BID PO 01/02/17 09:00 01/03/17 08:05 (Restoril) 30 mg HS PRN PO 01/02/17 06:15 01/02/17 21:34 (Norvasc) 5 mg BID PO 01/02/17 21:00 01/03/17 08:04 Amylase/Lipase/ Protease 2 cap 2 cap TIDPC PO 01/02/17 13:30 01/02/17 16:57 (Protonix Inj/NS Inj) 100 ml @ 10 mls/hr Q10H IV 01/02/17 22:45 01/02/17 23:53 A/P Assessment and Plan 1. Recurrent GI bleed related to AVM, GI specialist, as per GI he had S/P Recent EGD (12/26/16)---> 1. Gastritis antrum-biopsy esophagitis distal esophagus-biopsy, few small AVM's in gastric body s/p apc , few small avms in duodenum-s/p apc, 2. Retroflexed views revealed a hiatal hernia. Colonoscopy (12/27/16)----> 1. Two AVM's in cecum-s/p ablation using balltip diverticulosis sigmoid,descending avms in rectum, two diminutive polyps s/p ablation using balltip 2. Retroflexed views revealed internal hemorrhoids 3. Retroflexed views revealed small internal hemorrhoids 4. Revealed external hemorrhoids, improved since last hospitalization. started diet and recommended CT abdomen and monitor H and H. No nausea, vomit no diarrhea continue with Melenic stools. stable eating in his bedroom. 2. UTI/bladder diverticulum asked for Urine Culture growing Group D enterococcus removed Ceftriaxone and started on Ampicillin 2 grams every four hours and following urine culture results. 3. Anxiety disorder continue Home medicines 4. Hypertension controlled 5. Prostate Cancer history/Urinary retention and recurrent UTI by history 6. CAD status post PCI continue BB 7. CVA by history 8. Recurrent Pancreatitis continue Pancreatic enzymes DVT prophylaxis with SCDs Code Status Full Code. Discussed Condition With patient and nurse Miss Hedrick. Discharge Planning Expected in one to two days. Robert Smith MD January 03, 2017 11:44
[2017-01-03 12:00] VITALS: BP 129/65; PULSE 67; RESP 18; TEMP 97.8; O2SAT 98
--- NOTE | 2017-01-03 13:54 | HHI.GIFU ---
Subjective Remarks Sitting up on edge of bed. Eating a salad and does not appear to be in any distress. States he continues to have severe right sided abdominal pain. No active bleeding today. Did pass a small amount of black tarry stool earlier. Objective Vitals I&O Vital Signs Date Time Temp Pulse Resp B/P Pulse Ox O2 Delivery O2 Flow Rate FiO2 01/03/17 12:00 97.8 67 18 129/65 98 01/03/17 08:00 98.1 68 17 124/65 98 01/03/17 04:00 97.3 68 18 111/62 95 01/03/17 00:00 97.6 73 18 117/62 95 01/02/17 20:00 96.5 63 18 144/76 96 01/02/17 16:00 96.2 68 17 142/72 97 I/O 01/02/17 01/02/17 01/02/17 01/03/17 01/03/17 01/03/17 07:00 15:00 23:00 07:00 15:00 23:00 Intake Total 874 ml 1308 ml 984 ml 240 ml Output Total 575 ml 175 ml 300 ml 300 ml Balance 299 ml 1133 ml 684 ml -60 ml Intake Oral 0 ml 680 ml 240 ml IV Total 874 ml 628 ml 984 ml Output Urine Total 575 ml 175 ml 300 ml 300 ml Bladder Scan Volume Amount 120 ml # Bowel Movements 0 0 0 Laboratory Laboratory Tests Test 01/03/17 05:37 White Blood Count 7.5 Red Blood Count 3.88 Hemoglobin 10.5 Hematocrit 33.6 Mean Corpuscular Volume 86.5 Mean Corpuscular Hemoglobin 27.1 Mean Corpuscular Hemoglobin 31.3 Concent Red Cell Distribution Width 21.3 Platelet Count 292 Mean Platelet Volume 7.7 Neutrophils (%) (Auto) Lymphocytes (%) (Auto) Monocytes (%) (Auto) Eosinophils (%) (Auto) Basophils (%) (Auto) Neutrophils # (Auto) Lymphocytes # (Auto) Monocytes # (Auto) Eosinophils # (Auto) Basophils # (Auto) CBC Comment AUTO DIFF Differential Total Cells 100 Counted Neutrophils % (Manual) 67 Band Neutrophils % 7 Lymphocytes % 12 Monocytes % 4 Eosinophils % 7 Basophils % 3 Neutrophils # (Manual) 5.6 Differential Comment FINAL DIFF MANUAL Platelet Estimate NORMAL Platelet Morphology Comment NORMAL Helmet Cells OCC Acanthocytes OCC Sodium Level 141 Potassium Level 4.4 Chloride Level 110 Carbon Dioxide Level 22.0 Anion Gap 9 Blood Urea Nitrogen 16 Creatinine 0.81 Estimat Glomerular Filtration 117 Rate Random Glucose 112 Calcium Level 8.7 Total Bilirubin 0.2 Aspartate Amino Transf 10 (AST/SGOT) Alanine Aminotransferase 16 (ALT/SGPT) Alkaline Phosphatase 98 Total Protein 6.6 Albumin 3.1 Date/Time Procedure Status Source Growth 01/02/17 04:20 Urine Culture - Preliminary Resulted Urine Clean Catch Group D Enterococcus Imaging Last Impressions Chest X-Ray 01/02/17 1744 Signed Impressions: Service Date/Time: Monday, January 02, 2017 04:39 - CONCLUSION: No acute disease. Bala Franco MD Physical Exam HEENT: Normocephalic; atraumatic; no jaundice. CHEST: CTA CARDIAC: RRR. ABDOMEN: Soft, nondistended, right sided tenderness; no hepatosplenomegaly; bowel sounds are present in all four quadrants. EXTREMITIES: No clubbing, cyanosis, or edema. SKIN: Normal; no rash; no jaundice. SURVEY INTERVIEWER: No focal deficits; alert and oriented times three. Assessment and Plan Plan ASSESSMENT: - GIB bleeeding. Pt came to ER after N/V with streaks of blood in emesis and black tarry stool. S/P Recent EGD (12/26/16)---> 1. Gastritis antrum-biopsy esophagitis distal esophagus-biopsy, few small AVM's in gastric body s/p apc, few small avms in duodenum-s/p apc, 2. Retroflexed views revealed a hiatal hernia. Colonoscopy (12/27/16)----> 1. Two AVM's in cecum-s/p ablation using balltip diverticulosis sigmoid,descending avms in rectum, two diminutive polyps s/p ablation using balltip 2. Retroflexed views revealed internal hemorrhoids 3. Retroflexed views revealed small internal hemorrhoids 4. Revealed external hemorrhoids. HH stable, improved since last hospitalization. 10.5/33.6. No further n/v since arrival to ER. States he passed a small amount of black tarry stool earlier. States he is still having significant right sided abdominal pain (10 on scale 0-10), although he is able to eat his salad and laugh during exam. - Abdominal pain, acute on chronic. Pt with hx of chronic pancreatitis. CT scan abdomen and pelvis. - GERD. PPI - Prostate cancer, Possible UTI. per primary PLAN: - [facility] - CT scan abdomen and pelvis with po contrast only (allergic to iv contrast media) - PPI - Monitor HH - Supportive care - Pt seen and examined by Dr. Jerez and myself and this note is written on his behalf Jo Sarkar January 03, 2017 13:54
[2017-01-03] MEDS ORDERED: DIATRIZOATE MEGLUM/DIATRIZOATE SOD 9 ML CUP PO ONE (15:00)
--- NOTE | 2017-01-03 18:37 | RADRPT ---
EXAM DATE/TIME: 01/03/2017 17:59 [facility] COMPARISON: CT ABDOMEN & PELVIS W/O CONTRAST, November 29, 2016, 18:21. INDICATIONS : Abdomen pain with GI bleed. History of prostate cancer. ORAL CONTRAST: Prescribed oral contrast ingested. RADIATION DOSE: 9.27 CTDIvol (mGy) MEDICAL HISTORY : Cardiovascular disease. Hypertension. Carcinoma, prostate.GERD Pancreatitis SURGICAL HISTORY : Cholecystectomy. ENCOUNTER: Initial ACUITY: 1 day PAIN SCALE: 5/10 LOCATION: Bilateral abdomen TECHNIQUE: Volumetric scanning of the abdomen and pelvis was performed. Using automated exposure control and ad justment of the mA and/or kV according to patient size, radiation dose was kept as low as reasonably achievable to obtain optimal diagnostic quality images. FINDINGS: There is linear scarring at the right lung base similar to November 29. Lung bases otherwise clear. Smal l pericardial effusion similar to November 29. Small hiatal hernia. No acute findings in the liver, sple en, adrenals, kidneys. Previous cholecystectomy. There are calcifications in the pancreatic head most characteristic of chronic pancreatitis. Pancreatic duct is also dilated proximally in the head and n yuri. The appearance is similar to November 2016 and May 2016. Within the pelvis there is some stranding around the anterior portion of the bladder with some thicke mark of the bladder wall which could indicate a cystitis. Left-sided bladder diverticulum is similar to prior examination. There is previous left hip joint replacement. Mild constipation. No bowel obstruction. No free air or free fluid. CONCLUSION: Mild thickening of bladder wall especially anteriorly with some stranding of the fat around the bladd er. Differential diagnosis includes a cystitis. Stable left bladder diverticulum. Mild constipation. Stable small pericardial effusion. Akira Mari MD on January 03, 2017 at 18:28 Board Certified Radiologist. This report was verified electronically.
[2017-01-03 19:47] VITALS: PULSE 72
[2017-01-03] MEDS: PANTOPRAZOLE SOD 40 MG DELAYED RELEASE TAB PO SCH (19:47)
[2017-01-03 20:00] VITALS: BP 124/64; PULSE 66; RESP 17; TEMP 97; O2SAT 98
[2017-01-03] MEDS: TEMAZEPAM 15 MG CAP PO PRN (22:03)
[2017-01-04] VITALS: BP 112/56; PULSE 63; RESP 17; TEMP 97; O2SAT 98
[2017-01-04] MEDS: MORPHINE SULFATE 4 MG/ML INJ IV PRN ×8 (01:03→23:19)
[2017-01-04 04:00] VITALS: BP 107/57; PULSE 70; RESP 17; TEMP 96.7; O2SAT 98
[2017-01-04] MEDS: cefTRIAXone INJ 1,000 MG in SODIUM CHLORIDE 0.9% INJ 100 ML IV SCH (04:04)
[2017-01-04] MEDS: ONDANSETRON HCL 4 MG/2 ML VIAL IVP PRN (07:28)
[2017-01-04] MEDS: PANTOPRAZOLE SOD 40 MG DELAYED RELEASE TAB PO SCH ×2 (07:29→20:03)
[2017-01-04] MEDS: amLODIPine BESYLATE 5 MG TAB PO SCH ×2 (07:29→20:03)
[2017-01-04] MEDS: TAMSULOSIN HCL 0.4 MG CAP PO SCH ×2 (07:29→20:02)
[2017-01-04] MEDS: SODIUM CHLOR 0.9% 1000 ML INJ 1,000 ML IV SCH ×2 (07:30→17:27)
[2017-01-04] MEDS: SODIUM CHLORIDE 0.9% FLUSH 10 ML FLUSH IV FLUSH SCH ×2 (07:30→19:54)
[2017-01-04] MEDS: METOPROLOL SUCCINATE 50 MG EXTENDED RELEASE TAB PO SCH ×2 (07:30→20:03)
[2017-01-04 08:00] VITALS: BP 123/69; PULSE 66; RESP 17; TEMP 96.2; O2SAT 97
[2017-01-04] MEDS: LIPASE/PROTEASE/AMYLASE (24,000/76,000/120,000) CAP PO SCH ×3 (09:05→17:19)
--- NOTE | 2017-01-04 09:49 | HHI.PR ---
Subjective Remarks This is a pleasant 61 y/o male who came to ER with Dysuria, Increased urinary frequency and urgency, after he took Milk of mag for constipation had GI bleed, he was recently admitted in December 25 due to GI bleed status post EGD and Cautery of Duodenal AVMs, followed by Doctor Letty he has also Prostate Cancer, Bladder diverticulum with recurrent UTIs, has nausea and vomit but not hematemesis, seen in his bedroom in the presence of nurse Miss Burgos, he is stable asking for food explained will need to be evaluated first by GI specialist unsafe at this time to give food due to that he states continue with GI bleed, also symptomatic UTI. 01/03: Stable seen by GI specialist, as per GI he had S/P Recent EGD (12/26/16)--- > 1. Gastritis antrum-biopsy esophagitis distal esophagus-biopsy, few small AVM's in gastric body s/p apc, few small avms in duodenum-s/p apc, 2. Retroflexed views revealed a hiatal hernia. Colonoscopy (12/27/16)----> 1. Two AVM's in cecum-s/p ablation using balltip diverticulosis sigmoid,descending avms in rectum, two diminutive polyps s/p ablation using balltip 2. Retroflexed views revealed internal hemorrhoids 3. Retroflexed views revealed small internal hemorrhoids 4. Revealed external hemorrhoids. HH stable, improved since last hospitalization. started diet and recommended CT abdomen and monitor H and H. No nausea, vomit no diarrhea continue with Melenic stools. 01/04: Patient continue with complaint of melenic stools, no nausea, vomit eating at this time in the room, his Urine culture growing group D enterococcus started on Ampicillin and following. Objective Vital Signs Date Time Temp Pulse Resp B/P Pulse Ox O2 Delivery O2 Flow Rate FiO2 01/04/17 08:00 96.2 66 17 123/69 97 01/04/17 04:00 96.7 70 17 107/57 98 01/04/17 00:00 97.0 63 17 112/56 98 01/03/17 20:00 97.0 66 17 124/64 98 01/03/17 19:47 72 01/03/17 12:00 97.8 67 18 129/65 98 I/O 01/03/17 01/03/17 01/03/17 01/04/17 01/04/17 01/04/17 07:00 15:00 23:00 07:00 15:00 23:00 Intake Total 984 ml 1523 ml 917 ml 911 ml Output Total 300 ml 1100 ml 3000 ml 650 ml Balance 684 ml 423 ml -2083 ml 261 ml Intake Oral 600 ml 480 ml 240 ml IV Total 984 ml 923 ml 437 ml 671 ml Output Urine Total 300 ml 1100 ml 3000 ml 650 ml # Bowel Movements 0 Result Diagram: 01/03/17 0537 01/03/17 0537 Imaging Last Impressions Abdomen/Pelvis CT 01/03/17 0000 Signed Impressions: Service Date/Time: Tuesday, January 03, 2017 17:59 - CONCLUSION: Mild thickening of bladder wall especially anteriorly with some stranding of the fat around the bladder. Differential diagnosis includes a cystitis. Stable left bladder diverticulum. Mild constipation. Stable small pericardial effusion. Akira Mari MD Chest X-Ray 01/02/17 0424 Signed Impressions: Service Date/Time: Monday, January 02, 2017 04:39 - CONCLUSION: No acute disease. Bala Franco MD Procedures No procedures performed. Other Results Laboratory Tests Test 01/02/17 01/02/17 01/03/17 04:20 04:30 05:37 Urine Color YELLOW Urine Turbidity HAZY Urine pH 8.0 Urine Specific [place] 1.018 Urine Protein 100 mg/dL Urine Glucose (UA) NEG mg/dL Urine Ketones NEG mg/dL Urine Occult Blood LARGE Urine Nitrite NEG Urine Bilirubin NEG Urine Urobilinogen LESS THAN 2.0 MG/DL Urine Leukocyte Esterase LARGE Urine RBC /hpf Urine WBC /hpf Urine Bacteria MOD /hpf Microscopic Urinalysis Comment CULTURE INDICATED Prothrombin Time 10.6 SEC Prothromb Time International 1.0 RATIO Ratio Activated Partial 27.0 SEC Thromboplast Time Total Creatine Kinase 132 U/L Creatine Kinase MB 1.9 NG/ML Troponin I LESS THAN 0.02 NG/ML B-Type Natriuretic Peptide 6 PG/ML Lipase 311 U/L Blood Type B POSITIVE Antibody Screen NEGATIVE Crossmatch Leukocyte-Reduced Red Blood Cells Blood Bank Comment White Blood Count 7.5 TH/MM3 Red Blood Count 3.88 MIL/MM3 Hemoglobin 10.5 GM/DL Hematocrit 33.6 % Mean Corpuscular Volume 86.5 FL Mean Corpuscular Hemoglobin 27.1 PG Mean Corpuscular Hemoglobin 31.3 % Concent Red Cell Distribution Width 21.3 % Platelet Count 292 TH/MM3 Mean Platelet Volume 7.7 FL Neutrophils (%) (Auto) % Lymphocytes (%) (Auto) % Monocytes (%) (Auto) % Eosinophils (%) (Auto) % Basophils (%) (Auto) % Neutrophils # (Auto) TH/MM3 Lymphocytes # (Auto) TH/MM3 Monocytes # (Auto) TH/MM3 Eosinophils # (Auto) TH/MM3 Basophils # (Auto) TH/MM3 CBC Comment AUTO DIFF Differential Total Cells 100 Counted Neutrophils % (Manual) 67 % Band Neutrophils % 7 % Lymphocytes % 12 % Monocytes % 4 % Eosinophils % 7 % Basophils % 3 % Neutrophils # (Manual) 5.6 TH/MM3 Differential Comment FINAL DIFF MANUAL Platelet Estimate NORMAL Platelet Morphology Comment NORMAL Helmet Cells OCC Acanthocytes OCC Sodium Level 141 MEQ/L Potassium Level 4.4 MEQ/L Chloride Level 110 MEQ/L Carbon Dioxide Level 22.0 MEQ/L Anion Gap 9 MEQ/L Blood Urea Nitrogen 16 MG/DL Creatinine 0.81 MG/DL Estimat Glomerular Filtration 117 ML/MIN Rate Random Glucose 112 MG/DL Calcium Level 8.7 MG/DL Total Bilirubin 0.2 MG/DL Aspartate Amino Transf 10 U/L (AST/SGOT) Alanine Aminotransferase 16 U/L (ALT/SGPT) Alkaline Phosphatase 98 U/L Total Protein 6.6 GM/DL Albumin 3.1 GM/DL Objective Remarks GENERAL: No apparent distress. SKIN: No rashes, ecchymoses or lesions. Cool and dry. HEAD: Atraumatic. Normocephalic. No temporal or scalp tenderness. EYES: Pupils equal round and reactive. Extraocular motions intact. No scleral icterus. No injection or drainage. ENT: Nose without bleeding, purulent drainage or septal hematoma. Throat without erythema, tonsillar hypertrophy or exudate. Uvula midline. Airway patent. NECK: Trachea midline. No JVD or lymphadenopathy. Supple, nontender, no meningeal signs. CARDIOVASCULAR: Regular rate and rhythm without murmurs, gallops, or rubs. RESPIRATORY: Clear to auscultation. Breath sounds equal bilaterally. No wheezes , rales, or rhonchi. GASTROINTESTINAL: Abdomen soft, non-tender, nondistended. No hepato-splenomegaly , or palpable masses. No guarding. MUSCULOSKELETAL: Extremities without clubbing, cyanosis, or edema. No joint tenderness, effusion, or edema noted. No calf tenderness. Negative Homans sign bilaterally. NEUROLOGICAL: Awake and alert. Cranial nerves II through XII intact. Motor and sensory grossly within normal limits. Five out of 5 muscle strength in all muscle groups. Normal speech. Medications and IVs Current Medications Medications (Trade) Dose Ordered Sig/Juan José Route Start Time Stop Time Status Last Admin (NS 1000 ml Inj) 1,000 ml @ 100 mls/hr Q10H IV 01/02/17 06:02 01/04/17 07:30 (NS Flush) 2 ml UNSCH PRN IV FLUSH 01/02/17 06:15 (NS Flush) 2 ml BID IV FLUSH 01/02/17 09:00 (Zofran Inj) 4 mg Q6H PRN IVP 01/02/17 06:15 01/04/17 07:28 (Dulcolax Supp) 10 mg DAILY PRN RECTAL 01/02/17 06:15 (Tylenol) 650 mg Q6H PRN PO 01/02/17 06:15 Morphine Sulfate 2 mg 2 mg Q3H PRN IV 01/02/17 06:15 01/04/17 07:29 (Rocephin Inj/NS Inj) 100 ml @ 200 mls/hr Q24H IV 01/03/17 06:00 01/04/17 04:04 (Proair Hfa Inh) 2 puff Q6H PRN INH 01/02/17 06:15 (Xanax) 1 mg BID PRN PO 01/02/17 06:15 (Toprol Xl) 50 mg BID PO 01/02/17 09:00 01/04/17 07:30 (Flomax) 0.4 mg BID PO 01/02/17 09:00 01/04/17 07:29 (Restoril) 30 mg HS PRN PO 01/02/17 06:15 01/03/17 22:03 (Norvasc) 5 mg BID PO 01/02/17 21:00 01/04/17 07:29 (Creon 24-76-120) 2 cap TIDPC PO 01/02/17 13:30 01/04/17 09:05 (Protonix) 40 mg Q12HR PO 01/03/17 21:00 01/04/17 07:29 A/P Assessment and Plan 1. Recurrent GI bleed related to AVM, GI specialist, as per GI he had S/P Recent EGD (12/26/16)---> 1. Gastritis antrum-biopsy esophagitis distal esophagus-biopsy, few small AVM's in gastric body s/p apc , few small avms in duodenum-s/p apc, 2. Retroflexed views revealed a hiatal hernia. Colonoscopy (12/27/16)----> 1. Two AVM's in cecum-s/p ablation using balltip diverticulosis sigmoid,descending avms in rectum, two diminutive polyps s/p ablation using balltip 2. Retroflexed views revealed internal hemorrhoids 3. Retroflexed views revealed small internal hemorrhoids 4. Revealed external hemorrhoids, improved since last hospitalization. started diet and recommended CT abdomen and monitor H and H. No nausea, vomit no diarrhea continue with Melenic stools. stable eating in his bedroom. 2. UTI/bladder diverticulum asked for Urine Culture growing Group D enterococcus removed Ceftriaxone and started on Ampicillin 2 grams every four hours and following urine culture results. 3. Anxiety disorder continue Home medicines 4. Hypertension controlled 5. Prostate Cancer history/Urinary retention and recurrent UTI by history. Group D Enterococcus growing. 6. CAD status post PCI continue BB 7. CVA by history 8. Recurrent Pancreatitis continue Pancreatic enzymes DVT prophylaxis with SCDs Code Status Full Code. Discussed Condition With patient and nurse Miss Hedrick. Discharge Planning Awaiting final by GI specialist for discharge and Urine Cultures. Robert Smith MD January 04, 2017 09:49
[2017-01-04] MEDS: AMPICILLIN INJ 2,000 MG in SODIUM CHLORIDE 0.9% INJ 100 ML IV SCH ×3 (11:06→19:59)
[2017-01-04 11:25] LABS: HEMATOCRIT 33.5 % (39.0-51.0)
[2017-01-04 12:00] VITALS: BP 128/66; PULSE 72; RESP 16; TEMP 97; O2SAT 99
[2017-01-04 16:00] VITALS: BP 129/60; PULSE 67; RESP 17; TEMP 96.4; O2SAT 98
--- NOTE | 2017-01-04 16:35 | HHI.GIFU ---
Subjective Remarks Pt sitting on edge of bed, in no apparent distress. He says his urine was cloudy earlier but is clear now. He says he is having right side abd pain / . Says he had 7 x black tarry stools. Denies n/v. Per RN she has not seen stool, he keeps flushing it. Objective Vitals I&O Vital Signs Date Time Temp Pulse Resp B/P Pulse Ox O2 Delivery O2 Flow Rate FiO2 01/04/17 16:00 96.4 67 17 129/60 98 01/04/17 12:00 97.0 72 16 128/66 99 01/04/17 08:00 96.2 66 17 123/69 97 01/04/17 04:00 96.7 70 17 107/57 98 01/04/17 00:00 97.0 63 17 112/56 98 01/03/17 20:00 97.0 66 17 124/64 98 01/03/17 19:47 72 I/O 01/03/17 01/03/17 01/03/17 01/04/17 01/04/17 01/04/17 07:00 15:00 23:00 07:00 15:00 23:00 Intake Total 984 ml 1523 ml 917 ml 911 ml 1485 ml Output Total 300 ml 1100 ml 3000 ml 650 ml 1185 ml Balance 684 ml 423 ml -2083 ml 261 ml 300 ml Intake Oral 600 ml 480 ml 240 ml 360 ml IV Total 984 ml 923 ml 437 ml 671 ml 1125 ml Output Urine Total 300 ml 1100 ml 3000 ml 650 ml 1185 ml # Bowel Movements 0 7 Laboratory Laboratory Tests Test 01/04/17 10:55 Hemoglobin 10.9 Hematocrit 33.5 Date/Time Procedure Status Source Growth 01/02/17 04:20 Urine Culture - Final Complete Urine Clean Catch Enterococcus Faecalis Imaging Last Impressions Abdomen/Pelvis CT 01/03/17 0000 Signed Impressions: Service Date/Time: Tuesday, January 03, 2017 17:59 - CONCLUSION: Mild thickening of bladder wall especially anteriorly with some stranding of the fat around the bladder. Differential diagnosis includes a cystitis. Stable left bladder diverticulum. Mild constipation. Stable small pericardial effusion. Akira Mari MD Chest X-Ray 01/02/17 0424 Signed Impressions: Service Date/Time: Monday, January 02, 2017 04:39 - CONCLUSION: No acute disease. Bala Franco MD Physical Exam HEENT: Normocephalic; atraumatic; no jaundice. CHEST: CTA CARDIAC: RRR. ABDOMEN: Soft, nondistended, RLQ tenderness; no hepatosplenomegaly; bowel sounds are present in all four quadrants. EXTREMITIES: No clubbing, cyanosis, or edema. SKIN: Normal; no rash; no jaundice. SENIOR PHARMACY TECHNICIAN: No focal deficits; alert and oriented times three. Assessment and Plan Plan ASSESSMENT: - GIB bleeeding. Pt came to ER after N/V with streaks of blood in emesis and black tarry stool. S/P Recent EGD (12/26/16)---> 1. Gastritis antrum-biopsy esophagitis distal esophagus-biopsy, few small AVM's in gastric body s/p apc, few small avms in duodenum-s/p apc, 2. Retroflexed views revealed a hiatal hernia. Colonoscopy (12/27/16)----> 1. Two AVM's in cecum-s/p ablation using balltip diverticulosis sigmoid,descending avms in rectum, two diminutive polyps s/p ablation using balltip 2. Retroflexed views revealed internal hemorrhoids 3. Retroflexed views revealed small internal hemorrhoids 4. Revealed external hemorrhoids. HH stable, improved since last hospitalization. 10.9/33.5 No further n/v since arrival to ER. States he passed 7 x black tarry stool earlier. States he is still having significant right sided abdominal pain (10 on scale 0-10), although he is able to eat his salad and laugh during exam. - Abdominal pain, acute on chronic. Pt with hx of chronic pancreatitis. CT --> Mild thickening of bladder wall especially anteriorly with some stranding of the fat around the bladder. Differential diagnosis includes a cystitis. Stable left bladder diverticulum. Mild constipation. Stable small pericardial effusion. . - GERD. PPI - Prostate cancer, Possible UTI. per primary PLAN: - DARRELL - PPI - Monitor HH - Supportive care - Pt seen and examined by Dr. Jerez and myself and this note is written on his behalf Selam Mrianda [facility] January 04, 2017 16:35
[2017-01-04 20:00] VITALS: BP 154/78; PULSE 68; RESP 17; TEMP 95.7; O2SAT 98
[2017-01-04] MEDS: TEMAZEPAM 15 MG CAP PO PRN (21:44)
[2017-01-05] VITALS: BP 116/56; PULSE 69; RESP 17; TEMP 96.6; O2SAT 95
[2017-01-05] MEDS: MORPHINE SULFATE 4 MG/ML INJ IV PRN ×3 (02:25→08:43)
[2017-01-05] MEDS: AMPICILLIN INJ 2,000 MG in SODIUM CHLORIDE 0.9% INJ 100 ML IV SCH ×6 (02:27→20:42)
[2017-01-05 04:00] VITALS: BP 131/62; PULSE 73; RESP 17; TEMP 96.8; O2SAT 98
[2017-01-05] MEDS: SODIUM CHLOR 0.9% 1000 ML INJ 1,000 ML IV SCH (05:50)
[2017-01-05 08:00] VITALS: BP 122/66; PULSE 66; RESP 19; TEMP 96.9; O2SAT 95
[2017-01-05] MEDS: LIPASE/PROTEASE/AMYLASE (24,000/76,000/120,000) CAP PO SCH ×3 (08:42→17:51)
[2017-01-05] MEDS: PANTOPRAZOLE SOD 40 MG DELAYED RELEASE TAB PO SCH ×2 (08:42→20:43)
[2017-01-05] MEDS: METOPROLOL SUCCINATE 50 MG EXTENDED RELEASE TAB PO SCH ×2 (08:42→20:42)
[2017-01-05] MEDS: TAMSULOSIN HCL 0.4 MG CAP PO SCH ×2 (08:42→20:42)
[2017-01-05] MEDS: amLODIPine BESYLATE 5 MG TAB PO SCH ×2 (08:43→20:42)
[2017-01-05] MEDS: SODIUM CHLORIDE 0.9% FLUSH 10 ML FLUSH IV FLUSH SCH ×2 (08:43→20:43)
--- NOTE | 2017-01-05 08:47 | HHI.PR ---
Subjective Remarks This is a pleasant 61 y/o male who came to ER with Dysuria, Increased urinary frequency and urgency, after he took Milk of mag for constipation had GI bleed, he was recently admitted in December 25 due to GI bleed status post EGD and Cautery of Duodenal AVMs, followed by Doctor Letty he has also Prostate Cancer, Bladder diverticulum with recurrent UTIs, has nausea and vomit but not hematemesis, seen in his bedroom in the presence of nurse Miss Burgos, he is stable asking for food explained will need to be evaluated first by GI specialist unsafe at this time to give food due to that he states continue with GI bleed, also symptomatic UTI. 01/03: Stable seen by GI specialist, as per GI he had S/P Recent EGD (12/26/16)--- > 1. Gastritis antrum-biopsy esophagitis distal esophagus-biopsy, few small AVM's in gastric body s/p apc, few small avms in duodenum-s/p apc, 2. Retroflexed views revealed a hiatal hernia. Colonoscopy (12/27/16)----> 1. Two AVM's in cecum-s/p ablation using balltip diverticulosis sigmoid,descending avms in rectum, two diminutive polyps s/p ablation using balltip 2. Retroflexed views revealed internal hemorrhoids 3. Retroflexed views revealed small internal hemorrhoids 4. Revealed external hemorrhoids. HH stable, improved since last hospitalization. started diet and recommended CT abdomen and monitor H and H. No nausea, vomit no diarrhea continue with Melenic stools. 01/04: Patient continue with complaint of melenic stools, no nausea, vomit eating at this time in the room, his Urine culture growing group D enterococcus started on Ampicillin and following. 01/05: Stable in his bedroom, no complaint today, eating well, no more Hematuria , but has Enterococcus Faecalis I want to get the concept by Urology specialist he will be able to receive Ampicillin IV that he is susceptible and then go Home on Ampicillin by mouth, no new issues, following GI specialist recommendations for discharge I think three days Of IV antibiotics will do it and then by mouth to complete 14 days unless other recommendations by Urology. No nausea, vomit or diarrhea. Objective Vital Signs Date Time Temp Pulse Resp B/P Pulse Ox O2 Delivery O2 Flow Rate FiO2 01/05/17 08:00 96.9 66 19 122/66 95 01/05/17 05:50 18 01/05/17 04:00 96.8 73 17 131/62 98 01/05/17 00:00 96.6 69 17 116/56 95 01/04/17 20:00 95.7 68 17 154/78 98 01/04/17 16:00 96.4 67 17 129/60 98 01/04/17 12:00 97.0 72 16 128/66 99 I/O 01/04/17 01/04/17 01/04/17 01/05/17 01/05/17 01/05/17 07:00 15:00 23:00 07:00 15:00 23:00 Intake Total 911 ml 1485 ml 240 ml 1802 ml 120 ml Output Total 650 ml 1185 ml 1000 ml 300 ml Balance 261 ml 300 ml -760 ml 1502 ml 120 ml Intake Oral 240 ml 360 ml 240 ml 240 ml 120 ml IV Total 671 ml 1125 ml 1562 ml Output Urine Total 650 ml 1185 ml 1000 ml 300 ml # Bowel Movements 7 Result Diagram: 01/04/17 1055 01/03/17 0537 Imaging Last Impressions Abdomen/Pelvis CT 01/03/17 0000 Signed Impressions: Service Date/Time: Tuesday, January 03, 2017 17:59 - CONCLUSION: Mild thickening of bladder wall especially anteriorly with some stranding of the fat around the bladder. Differential diagnosis includes a cystitis. Stable left bladder diverticulum. Mild constipation. Stable small pericardial effusion. Akira Mari MD Chest X-Ray 01/02/17 0424 Signed Impressions: Service Date/Time: Monday, January 02, 2017 04:39 - CONCLUSION: No acute disease. Bala Franco MD Procedures No procedures performed. Other Results Laboratory Tests Test 01/02/17 01/02/17 01/03/17 01/04/17 04:20 04:30 05:37 10:55 Urine Color YELLOW Urine Turbidity HAZY Urine pH 8.0 Urine Specific [place] 1.018 Urine Protein 100 mg/dL Urine Glucose (UA) NEG mg/dL Urine Ketones NEG mg/dL Urine Occult Blood LARGE Urine Nitrite NEG Urine Bilirubin NEG Urine Urobilinogen LESS THAN 2.0 MG/DL Urine Leukocyte Esterase LARGE Urine RBC /hpf Urine WBC /hpf Urine Bacteria MOD /hpf Microscopic Urinalysis Comment CULTURE INDICATED Prothrombin Time 10.6 SEC Prothromb Time International 1.0 RATIO Ratio Activated Partial 27.0 SEC Thromboplast Time Total Creatine Kinase 132 U/L Creatine Kinase MB 1.9 NG/ML Troponin I LESS THAN 0.02 NG/ML B-Type Natriuretic Peptide 6 PG/ML Lipase 311 U/L Blood Type B POSITIVE Antibody Screen NEGATIVE Crossmatch Leukocyte-Reduced Red Blood Cells Blood Bank Comment White Blood Count 7.5 TH/MM3 Red Blood Count 3.88 MIL/MM3 Mean Corpuscular Volume 86.5 FL Mean Corpuscular Hemoglobin 27.1 PG Mean Corpuscular Hemoglobin 31.3 % Concent Red Cell Distribution Width 21.3 % Platelet Count 292 TH/MM3 Mean Platelet Volume 7.7 FL Neutrophils (%) (Auto) % Lymphocytes (%) (Auto) % Monocytes (%) (Auto) % Eosinophils (%) (Auto) % Basophils (%) (Auto) % Neutrophils # (Auto) TH/MM3 Lymphocytes # (Auto) TH/MM3 Monocytes # (Auto) TH/MM3 Eosinophils # (Auto) TH/MM3 Basophils # (Auto) TH/MM3 CBC Comment AUTO DIFF Differential Total Cells 100 Counted Neutrophils % (Manual) 67 % Band Neutrophils % 7 % Lymphocytes % 12 % Monocytes % 4 % Eosinophils % 7 % Basophils % 3 % Neutrophils # (Manual) 5.6 TH/MM3 Differential Comment FINAL DIFF MANUAL Platelet Estimate NORMAL Platelet Morphology Comment NORMAL Helmet Cells OCC Acanthocytes OCC Sodium Level 141 MEQ/L Potassium Level 4.4 MEQ/L Chloride Level 110 MEQ/L Carbon Dioxide Level 22.0 MEQ/L Anion Gap 9 MEQ/L Blood Urea Nitrogen 16 MG/DL Creatinine 0.81 MG/DL Estimat Glomerular Filtration 117 ML/MIN Rate Random Glucose 112 MG/DL Calcium Level 8.7 MG/DL Total Bilirubin 0.2 MG/DL Aspartate Amino Transf 10 U/L (AST/SGOT) Alanine Aminotransferase 16 U/L (ALT/SGPT) Alkaline Phosphatase 98 U/L Total Protein 6.6 GM/DL Albumin 3.1 GM/DL Hemoglobin 10.9 GM/DL Hematocrit 33.5 % Objective Remarks GENERAL: No apparent distress. SKIN: No rashes, ecchymoses or lesions. Cool and dry. HEAD: Atraumatic. Normocephalic. No temporal or scalp tenderness. EYES: Pupils equal round and reactive. Extraocular motions intact. ENT: Nose without bleeding, purulent drainage or septal hematoma. NECK: Trachea midline. No JVD or lymphadenopathy. Supple, nontender, no meningeal signs. CARDIOVASCULAR: Regular rate and rhythm without murmurs, gallops, or rubs. RESPIRATORY: Clear to auscultation. Breath sounds equal bilaterally. No wheezes , rales, or rhonchi. GASTROINTESTINAL: Abdomen soft, non-tender, nondistended. MUSCULOSKELETAL: Extremities without clubbing, cyanosis, or edema. NEUROLOGICAL: Awake and alert. No focal deficits. Medications and IVs Current Medications Medications (Trade) Dose Ordered Sig/Juan José Route Start Time Stop Time Status Last Admin (NS 1000 ml Inj) 1,000 ml @ 100 mls/hr Q10H IV 01/02/17 06:02 01/05/17 05:50 (NS Flush) 2 ml UNSCH PRN IV FLUSH 01/02/17 06:15 (NS Flush) 2 ml BID IV FLUSH 01/02/17 09:00 01/04/17 19:54 (Zofran Inj) 4 mg Q6H PRN IVP 01/02/17 06:15 01/04/17 07:28 (Dulcolax Supp) 10 mg DAILY PRN RECTAL 01/02/17 06:15 (Tylenol) 650 mg Q6H PRN PO 01/02/17 06:15 (Morphine Inj) 2 mg Q3H PRN IV 01/02/17 06:15 01/05/17 05:45 (Proair Hfa Inh) 2 puff Q6H PRN INH 01/02/17 06:15 (Xanax) 1 mg BID PRN PO 01/02/17 06:15 (Toprol Xl) 50 mg BID PO 01/02/17 09:00 01/04/17 20:03 (Flomax) 0.4 mg BID PO 01/02/17 09:00 01/04/17 20:02 (Restoril) 30 mg HS PRN PO 01/02/17 06:15 01/04/17 21:44 (Norvasc) 5 mg BID PO 01/02/17 21:00 01/04/17 20:03 (Creon 24-76-120) 2 cap TIDPC PO 01/02/17 13:30 01/04/17 17:19 Pantoprazole Sodium 40 mg 40 mg Q12HR PO 01/03/17 21:00 01/04/17 20:03 (Ampicillin Inj/ NS Inj) 100 ml @ 400 mls/hr Q4H IV 01/04/17 12:00 01/05/17 05:48 A/P Assessment and Plan 1. Recurrent GI bleed related to AVM, GI specialist, as per GI he had S/P Recent EGD (12/26/16)---> 1. Gastritis antrum-biopsy esophagitis distal esophagus-biopsy, few small AVM's in gastric body s/p apc , few small avms in duodenum-s/p apc, 2. Retroflexed views revealed a hiatal hernia. Colonoscopy (12/27/16)----> 1. Two AVM's in cecum-s/p ablation using balltip diverticulosis sigmoid,descending avms in rectum, two diminutive polyps s/p ablation using balltip 2. Retroflexed views revealed internal hemorrhoids 3. Retroflexed views revealed small internal hemorrhoids 4. Revealed external hemorrhoids, improved since last hospitalization. Hemoglobin 10.9 stable. 2. UTI/bladder diverticulum asked for Urine Culture growing Enterococcus Faecalis, on Ampicillin 2 grams every four hours consulted Urology to get the concept the patient has Diverticulum and had Hematuria on admission. 3. Anxiety disorder continue Home medicines 4. Hypertension controlled 5. Prostate Cancer history/Urinary retention and recurrent UTI by history. Enterococcus Faecalis growing 6. CAD status post PCI continue BB 7. CVA by history 8. Recurrent Pancreatitis continue Pancreatic enzymes Pain medicines to by mouth Protonix to by mouth Carafate IV fluids removed consult Urology specialist Plan for discharge in one to two days. DVT prophylaxis with SCDs Code Status Full Code. Discussed Condition With patient and nurse Miss Burgos all questions answered to the best of my abilities. Discharge Planning Discharge plan in one to two days. Robert Smith MD January 05, 2017 08:47
[2017-01-05] MEDS ORDERED: HYDROCHLOROTHIAZIDE 25 MG TAB PO SCH (09:00)
[2017-01-05] MEDS: SUCRALFATE 1 GM/10 ML CUP PO SCH ×3 (11:46→20:42)
[2017-01-05] MEDS: MORPHINE SULFATE 15 MG TAB PO PRN ×2 (11:46→16:12)
[2017-01-05 12:00] VITALS: BP 132/66; PULSE 59; RESP 19; TEMP 97.3; O2SAT 99
--- NOTE | 2017-01-05 14:45 | HHI.GIFU ---
Subjective Remarks Pt OOB standing in door way. Denies abd pain, nausea, vomiting. Says his stools are not as black as before. Objective Vitals I&O Vital Signs Date Time Temp Pulse Resp B/P Pulse Ox O2 Delivery O2 Flow Rate FiO2 01/05/17 12:00 97.3 59 19 132/66 99 01/05/17 08:00 96.9 66 19 122/66 95 01/05/17 05:50 18 01/05/17 04:00 96.8 73 17 131/62 98 01/05/17 00:00 96.6 69 17 116/56 95 01/04/17 20:00 95.7 68 17 154/78 98 01/04/17 16:00 96.4 67 17 129/60 98 I/O 01/04/17 01/04/17 01/04/17 01/05/17 01/05/17 01/05/17 07:00 15:00 23:00 07:00 15:00 23:00 Intake Total 911 ml 1485 ml 240 ml 1802 ml 680 ml Output Total 650 ml 1185 ml 1000 ml 300 ml 700 ml Balance 261 ml 300 ml -760 ml 1502 ml -20 ml Intake Oral 240 ml 360 ml 240 ml 240 ml 120 ml IV Total 671 ml 1125 ml 1562 ml 560 ml Output Urine Total 650 ml 1185 ml 1000 ml 300 ml 700 ml # Bowel Movements 7 Laboratory Date/Time Procedure Status Source Growth 01/02/17 04:20 Urine Culture - Final Complete Urine Clean Catch Enterococcus Faecalis Imaging Last Impressions Abdomen/Pelvis CT 01/03/17 0000 Signed Impressions: Service Date/Time: Tuesday, January 03, 2017 17:59 - CONCLUSION: Mild thickening of bladder wall especially anteriorly with some stranding of the fat around the bladder. Differential diagnosis includes a cystitis. Stable left bladder diverticulum. Mild constipation. Stable small pericardial effusion. Akira Mari MD Chest X-Ray 01/02/17 0424 Signed Impressions: Service Date/Time: Monday, January 02, 2017 04:39 - CONCLUSION: No acute disease. Bala Franco MD Physical Exam HEENT: Normocephalic; atraumatic; no jaundice. CHEST: CTA CARDIAC: RRR. ABDOMEN: Soft, nondistended, nondender; no hepatosplenomegaly; bowel sounds are present in all four quadrants. EXTREMITIES: No clubbing, cyanosis, or edema. SKIN: Normal; no rash; no jaundice. BERRY PLANTER: No focal deficits; alert and oriented times three. Assessment and Plan Plan ASSESSMENT: - GIB bleeeding. Improving, today pt reports stools not as black. Pt came to ER after N/V with streaks of blood in emesis and black tarry stool. S/P Recent EGD (12/26/16)---> 1. Gastritis antrum-biopsy esophagitis distal esophagus-biopsy, few small AVM's in gastric body s/p apc, few small avms in duodenum-s/p apc, 2. Retroflexed views revealed a hiatal hernia. Colonoscopy (12/27/16)----> 1. Two AVM's in cecum-s/p ablation using balltip diverticulosis sigmoid,descending avms in rectum, two diminutive polyps s/p ablation using balltip 2. Retroflexed views revealed internal hemorrhoids 3. Retroflexed views revealed small internal hemorrhoids 4. Revealed external hemorrhoids. HH stable, improved since last hospitalization. [id number] No further n/v since arrival to ER. States he passed 7 x black tarry stool earlier. States he is still having significant right sided abdominal pain (10 on scale 0-10), although he is able to eat his salad and laugh during exam. - Abdominal pain, acute on chronic. Pt w/ no complain pain today. Pt with hx of chronic pancreatitis. CT 01-03-17 --> Mild thickening of bladder wall especially anteriorly with some stranding of the fat around the bladder. Differential diagnosis includes a cystitis. Stable left bladder diverticulum. Mild constipation. Stable small pericardial effusion. . - GERD. PPI - Prostate cancer, Possible UTI. per primary PLAN: - DARRELL - PPI - Monitor HH - Supportive care - GI will sign off - Pt seen and examined by Dr. Jerez and myself and this note is written on his behalf Selam Miranda January 05, 2017 14:45
--- NOTE | 2017-01-05 15:52 | MB ---
cc: BROOKE POPE MD DATE OF CONSULTATION: 01/05/2017 REASON FOR CONSULTATION: 1. Recurrent urinary tract infections. 2. History of prostate cancer status post external beam radiation therapy. 3. Bladder diverticulum. HISTORY OF PRESENT ILLNESS: The patient is a 61 year-old -[place] male with history of prostate cancer status post extremity radiation therapy approximately 14 years ago with recurrent urinary tract infection. No bladder diverticulum, presented to the emergency room with increased urinary frequency, urgency and dysuria for several days similar to his urinary tract episodes in the past. The patient has CT of the abdomen and pelvis with and without contrast done which showed, there is no left-sided bladder diverticulum as well as a thickened bladder wall but no evidence any kidney stones and urology was consulted for recurrent urinary tract infections. The patient is known to Dr. Cuellar and was last seen several months ago. He has been managing his recurrent UTIs and known bladder diverticulum. He is told he was not a surgical candidate to have the diverticulum removed. He takes Flomax 0.4 mg twice a day. He continues to have some mild lower urinary tract symptoms including occasional urgency and frequency but usually it is more prevalent during his urinary tract infections. He also is complaining of left leg pain down the backside of his leg, which is keeping him from walking. He denies fevers, chills, flank pain, abdominal pain this time. Denies history of kidney stones. He states he last had his PSA checked 2 months ago. He is not aware of what that number is. PAST MEDICAL HISTORY: 1. Noted for prostate cancer 2. Coronary disease 3. Cerebrovascular accident. 4. Gastrointestinal bleed. 5. Current urinary tract infections. 6. Bladder diverticulum. 7. Hypertension 8. Pancreatitis 9. Obstructive sleep apnea. 10. Bladder diverticulum PAST SURGICAL HISTORY Left rotator surgery Left hip surgery. Cholecystectomy Rectal procedure for hemorrhoids Lung surgery. MEDICATIONS home medications include 1. Flomax 0.4 ounces p.o. b.i.d. 2. Norvasc 5 mg p.o. b.i.d. 3. Phenergan 4. Proventil. 5. Temazepam 6. Xanax 1 mg p.o. twice a day as needed anxiety. 7. Hydrochlorothiazide 25 mg p.o. every other day 8. Potassium 20 mg p.o. daily. 9. Milk of Magnesia. ALLERGIES CIPRO CODEINE SPIROLACTONE FENTANYL CORTICOSTEROIDS. NSAIDS FAMILY HISTORY Denied urolithiasis or genitourinary malignancies. SOCIAL HISTORY History of alcohol abuse, currently smokes tobacco, Only once a day. Denies illicit drug. REVIEW OF SYSTEMS A 14 point review of systems, see HPI otherwise all systems reviewed otherwise negative. PHYSICAL EXAMINATION VITAL SIGNS: Temperature 97.3, Pulse 59, respiratory rate 19, BLOOD PRESSURE 133/67, 99% room air. IN GENERAL: Alert and oriented times three. No apparent distress pleasant, cooperative and appears stated age. HEAD, EYES, EARS, NOSE, AND THROAT: Head is normocephalic, atraumatic. Eyes: No scleral icterus. Extraocular muscles intact. NECK: The neck is supple. Trachea is midline. No JVD. LUNGS: The lungs are clear to auscultation bilaterally, no wheezes, rales or rhonchi. HEART: Regular rhythm, no murmurs, rubs. ABDOMEN: Soft, nontender, nondistended. Positive bowel sounds. GENITOURINARY: Penis circumcised. Testes are bilaterally normal size, without mass. Urethral meatus is normal. RECTUM: Rectal examine was not indicated. EXTREMITIES: Nontender, no clubbing, cyanosis or edema. SKIN: No ulcers or rashes. PSYCHIATRIC: Psych flat affect. NEUROLOGIC: Cranial nerves II-XII intact. Strength 05/05 in all for extremities. LABORATORY FINDINGS: Show a white count 7.52, 110.5, hematocrit 3.6, platelet count 92, sodium 41, potassium 4.4, chloride one time, platelet 10, bicarb 22, BUN 16, creatinine 0.81, glucose 112. His urine showed large blood loss was esterase moderate bacteria and urine culture grew Enterobacter enterococcus faecalis. Ramirez sensitive. IMAGING STUDIES CT of the pelvis without contrast was reviewed, I agree with radiologist's report the patient has a large left-sided bladder diverticulum possibly which diverticula with thickened bladder wall nausea kidney stones or hydronephrosis. ASSESSMENT AND PLAN: The patient is a 61-year-old male with history of prostate cancer status post XRT with known bladder diverticulum and recurrent UTIs who presents to [facility] with dysuria,urgency and frequency and was thought to have enterococcus UTI PLAN 1. Since he is afebrile and white count is normal,suggest switching to oral antibiotics and treated with nitrofurantoin for approximately 2 weeks due to his prior history of C-Difficile as well. 2. With the etiology of his recurrent UTIs is likely from his known bladder diverticulum and could possibly require excision of the bladder diverticulum but I will defer to the care of his urologist Dr. Cuellar. From a urology standpoint it is okay for him to be discharged home on oral antibiotics and follow up with Dr. Cuellar as an outpatient. He should continue to get yearly PSAs to his history of prostate cancer. Thank your for this consultation, please call with any questions. MD DEV Pruitt/trish /1:39 PM /2:36 PM
[2017-01-05 16:00] VITALS: BP 122/69; PULSE 61; RESP 20; TEMP 97.7; O2SAT 97
[2017-01-05 20:00] VITALS: BP 129/67; PULSE 64; RESP 20; TEMP 98; O2SAT 97
[2017-01-05] MEDS: TEMAZEPAM 15 MG CAP PO PRN (20:42)
[2017-01-06] VITALS: BP 121/70; PULSE 68; RESP 18; TEMP 97.6; O2SAT 95
[2017-01-06] MEDS ORDERED: hydrOXYzine HCL 10 MG TAB PO ONE
[2017-01-06] MEDS: AMPICILLIN INJ 2,000 MG in SODIUM CHLORIDE 0.9% INJ 100 ML IV SCH ×3 (00:49→07:34)
[2017-01-06] MEDS: SUCRALFATE 1 GM/10 ML CUP PO SCH (06:04)
[2017-01-06] MEDS: METOPROLOL SUCCINATE 50 MG EXTENDED RELEASE TAB PO SCH (07:33)
[2017-01-06] MEDS: PANTOPRAZOLE SOD 40 MG DELAYED RELEASE TAB PO SCH (07:34)
[2017-01-06] MEDS: TAMSULOSIN HCL 0.4 MG CAP PO SCH (07:34)
[2017-01-06] MEDS: SODIUM CHLORIDE 0.9% FLUSH 10 ML FLUSH IV FLUSH SCH (07:34)
[2017-01-06] MEDS: amLODIPine BESYLATE 5 MG TAB PO SCH (07:35)
[2017-01-06 08:00] VITALS: BP 110/55; PULSE 115; RESP 16; TEMP 96.8; O2SAT 98
[2017-01-06] MEDS ORDERED: MACR100C3 PO (08:29)
[2017-01-06] MEDS ORDERED: HYDR-3535 PO (08:29)
[2017-01-06] MEDS ORDERED: PANT40TA3 PO (08:43)
--- NOTE | 2017-01-06 08:47 | HHI.PR ---
Subjective Remarks This is a pleasant 61 y/o male who came to ER with Dysuria, Increased urinary frequency and urgency, after he took Milk of mag for constipation had GI bleed, he was recently admitted in December 25 due to GI bleed status post EGD and Cautery of Duodenal AVMs, followed by Doctor Letty he has also Prostate Cancer, Bladder diverticulum with recurrent UTIs, has nausea and vomit but not hematemesis, seen in his bedroom in the presence of nurse Miss Burgos, he is stable asking for food explained will need to be evaluated first by GI specialist unsafe at this time to give food due to that he states continue with GI bleed, also symptomatic UTI. 01/03: Stable seen by GI specialist, as per GI he had S/P Recent EGD (12/26/16)--- > 1. Gastritis antrum-biopsy esophagitis distal esophagus-biopsy, few small AVM's in gastric body s/p apc, few small avms in duodenum-s/p apc, 2. Retroflexed views revealed a hiatal hernia. Colonoscopy (12/27/16)----> 1. Two AVM's in cecum-s/p ablation using balltip diverticulosis sigmoid,descending avms in rectum, two diminutive polyps s/p ablation using balltip 2. Retroflexed views revealed internal hemorrhoids 3. Retroflexed views revealed small internal hemorrhoids 4. Revealed external hemorrhoids. HH stable, improved since last hospitalization. started diet and recommended CT abdomen and monitor H and H. No nausea, vomit no diarrhea continue with Melenic stools. 01/04: Patient continue with complaint of melenic stools, no nausea, vomit eating at this time in the room, his Urine culture growing group D enterococcus started on Ampicillin and following. 01/05: Stable in his bedroom, no complaint today, eating well, no more Hematuria , but has Enterococcus Faecalis I want to get the concept by Urology specialist he will be able to receive Ampicillin IV that he is susceptible and then go Home on Ampicillin by mouth, no new issues, following GI specialist recommendations for discharge I think three days Of IV antibiotics will do it and then by mouth to complete 14 days unless other recommendations by Urology. No nausea, vomit or diarrhea. 01/06: Seen in his bedroom and discussed with nurse Miss Loretta, no nausea, vomit or diarrhea, recommended to discharge and follow by PCP and GI specialist as outpatient, also seen by Urology specialist recommended to continue Nitrofurantoin 100 mg QID for 14 days and follow with his Primary urology specialist Doctor Polo or possible resection of Bladder diverticulum Objective Vital Signs Date Time Temp Pulse Resp B/P Pulse Ox O2 Delivery O2 Flow Rate FiO2 01/06/17 08:00 96.8 115 16 110/55 98 01/06/17 00:00 97.6 68 18 121/70 95 01/05/17 20:00 98.0 64 20 129/67 97 01/05/17 16:00 97.7 61 20 122/69 97 01/05/17 12:00 97.3 59 19 132/66 99 I/O 01/05/17 01/05/17 01/05/17 01/06/17 01/06/17 01/06/17 07:00 15:00 23:00 07:00 15:00 23:00 Intake Total 1802 ml 1440 ml 440 ml 636 ml 100 ml Output Total 300 ml 1900 ml 600 ml 550 ml Balance 1502 ml -460 ml -160 ml 86 ml 100 ml Intake Oral 240 ml 880 ml 440 ml 320 ml IV Total 1562 ml 560 ml 316 ml 100 ml Output Urine Total 300 ml 1900 ml 600 ml 550 ml # Bowel Movements 0 0 0 Result Diagram: 01/04/17 1055 01/03/17 0537 Imaging Last Impressions Abdomen/Pelvis CT 01/03/17 0000 Signed Impressions: Service Date/Time: Tuesday, January 03, 2017 17:59 - CONCLUSION: Mild thickening of bladder wall especially anteriorly with some stranding of the fat around the bladder. Differential diagnosis includes a cystitis. Stable left bladder diverticulum. Mild constipation. Stable small pericardial effusion. Akira Mari MD Chest X-Ray 01/02/17 0424 Signed Impressions: Service Date/Time: Monday, January 02, 2017 04:39 - CONCLUSION: No acute disease. Bala Franco MD Procedures No procedures performed. Other Results Laboratory Tests Test 01/02/17 01/02/17 01/03/17 01/04/17 04:20 04:30 05:37 10:55 Urine Color YELLOW Urine Turbidity HAZY Urine pH 8.0 Urine Specific [place] 1.018 Urine Protein 100 mg/dL Urine Glucose (UA) NEG mg/dL Urine Ketones NEG mg/dL Urine Occult Blood LARGE Urine Nitrite NEG Urine Bilirubin NEG Urine Urobilinogen LESS THAN 2.0 MG/DL Urine Leukocyte Esterase LARGE Urine RBC /hpf Urine WBC /hpf Urine Bacteria MOD /hpf Microscopic Urinalysis Comment CULTURE INDICATED Prothrombin Time 10.6 SEC Prothromb Time International 1.0 RATIO Ratio Activated Partial 27.0 SEC Thromboplast Time Total Creatine Kinase 132 U/L Creatine Kinase MB 1.9 NG/ML Troponin I LESS THAN 0.02 NG/ML B-Type Natriuretic Peptide 6 PG/ML Lipase 311 U/L Blood Type B POSITIVE Antibody Screen NEGATIVE Crossmatch Leukocyte-Reduced Red Blood Cells Blood Bank Comment White Blood Count 7.5 TH/MM3 Red Blood Count 3.88 MIL/MM3 Mean Corpuscular Volume 86.5 FL Mean Corpuscular Hemoglobin 27.1 PG Mean Corpuscular Hemoglobin 31.3 % Concent Red Cell Distribution Width 21.3 % Platelet Count 292 TH/MM3 Mean Platelet Volume 7.7 FL Neutrophils (%) (Auto) % Lymphocytes (%) (Auto) % Monocytes (%) (Auto) % Eosinophils (%) (Auto) % Basophils (%) (Auto) % Neutrophils # (Auto) TH/MM3 Lymphocytes # (Auto) TH/MM3 Monocytes # (Auto) TH/MM3 Eosinophils # (Auto) TH/MM3 Basophils # (Auto) TH/MM3 CBC Comment AUTO DIFF Differential Total Cells 100 Counted Neutrophils % (Manual) 67 % Band Neutrophils % 7 % Lymphocytes % 12 % Monocytes % 4 % Eosinophils % 7 % Basophils % 3 % Neutrophils # (Manual) 5.6 TH/MM3 Differential Comment FINAL DIFF MANUAL Platelet Estimate NORMAL Platelet Morphology Comment NORMAL Helmet Cells OCC Acanthocytes OCC Sodium Level 141 MEQ/L Potassium Level 4.4 MEQ/L Chloride Level 110 MEQ/L Carbon Dioxide Level 22.0 MEQ/L Anion Gap 9 MEQ/L Blood Urea Nitrogen 16 MG/DL Creatinine 0.81 MG/DL Estimat Glomerular Filtration 117 ML/MIN Rate Random Glucose 112 MG/DL Calcium Level 8.7 MG/DL Total Bilirubin 0.2 MG/DL Aspartate Amino Transf 10 U/L (AST/SGOT) Alanine Aminotransferase 16 U/L (ALT/SGPT) Alkaline Phosphatase 98 U/L Total Protein 6.6 GM/DL Albumin 3.1 GM/DL Hemoglobin 10.9 GM/DL Hematocrit 33.5 % Objective Remarks GENERAL: No apparent distress. SKIN: No rashes, ecchymoses or lesions. Cool and dry. HEAD: Atraumatic. Normocephalic. No temporal or scalp tenderness. EYES: Pupils equal round and reactive. Extraocular motions intact. ENT: Nose without bleeding, purulent drainage or septal hematoma. NECK: Trachea midline. No JVD or lymphadenopathy. Supple, nontender, no meningeal signs. CARDIOVASCULAR: Regular rate and rhythm without murmurs, gallops, or rubs. RESPIRATORY: Clear to auscultation. Breath sounds equal bilaterally. No wheezes , rales, or rhonchi. GASTROINTESTINAL: Abdomen soft, non-tender, nondistended. MUSCULOSKELETAL: Extremities without clubbing, cyanosis, or edema. NEUROLOGICAL: Awake and alert. No focal deficits. Medications and IVs Current Medications Medications (Trade) Dose Ordered Sig/Juan José Route Start Time Stop Time Status Last Admin (NS Flush) 2 ml UNSCH PRN IV FLUSH 01/02/17 06:15 (NS Flush) 2 ml BID IV FLUSH 01/02/17 09:00 01/06/17 07:34 (Zofran Inj) 4 mg Q6H PRN IVP 01/02/17 06:15 01/04/17 07:28 (Dulcolax Supp) 10 mg DAILY PRN RECTAL 01/02/17 06:15 (Tylenol) 650 mg Q6H PRN PO 01/02/17 06:15 (Proair Hfa Inh) 2 puff Q6H PRN INH 01/02/17 06:15 (Xanax) 1 mg BID PRN PO 01/02/17 06:15 01/05/17 20:42 (Toprol Xl) 50 mg BID PO 01/02/17 09:00 01/06/17 07:33 (Flomax) 0.4 mg BID PO 01/02/17 09:00 01/06/17 07:34 (Restoril) 30 mg HS PRN PO 01/02/17 06:15 01/05/17 20:42 (Norvasc) 5 mg BID PO 01/02/17 21:00 01/06/17 07:35 Amylase/Lipase/ Protease 2 cap 2 cap TIDPC PO 01/02/17 13:30 01/05/17 17:51 (Ampicillin Inj/ NS Inj) 100 ml @ 400 mls/hr Q4H IV 01/04/17 12:00 01/06/17 07:34 (Msir) 15 mg Q4H PRN PO 01/05/17 09:15 01/05/17 16:12 (Protonix) 40 mg Q12HR PO 01/05/17 21:00 01/06/17 07:34 (Carafate Liq) 1 gm ACHS PO 01/05/17 11:00 01/06/17 06:04 A/P Assessment and Plan 1. Recurrent GI bleed related to AVM, GI specialist, as per GI he had S/P Recent EGD (12/26/16)---> 1. Gastritis antrum-biopsy esophagitis distal esophagus-biopsy, few small AVM's in gastric body s/p apc , few small avms in duodenum-s/p apc, 2. Retroflexed views revealed a hiatal hernia. Colonoscopy (12/27/16)----> 1. Two AVM's in cecum-s/p ablation using balltip diverticulosis sigmoid,descending avms in rectum, two diminutive polyps s/p ablation using balltip 2. Retroflexed views revealed internal hemorrhoids 3. Retroflexed views revealed small internal hemorrhoids 4. Revealed external hemorrhoids, improved since last hospitalization. Hemoglobin 10.9 stable. seen by GI specialist and cleared for discharge will follow with PCP and GI specialist. 2. UTI/bladder diverticulum asked for Urine Culture growing Enterococcus Faecalis, on Ampicillin 2 grams every four hours consulted Urology to get the concept the patient has Diverticulum and had Hematuria on admission. seen by Urology specialist recommended to continue by mouth Nitrofurantoin 100 mg QID for 14 days and follow with his primary Urology specialist Doctor Polo for possible Bladder diverticulum surgery. 3. Anxiety disorder continue Home medicines 4. Hypertension controlled 5. Prostate Cancer history/Urinary retention and recurrent UTI by history. Enterococcus Faecalis growing 6. CAD status post PCI continue BB 7. CVA by history 8. Recurrent Pancreatitis continue Pancreatic enzymes DVT prophylaxis with SCDs Code Status Full Code. Discussed Condition With patient and nurse Miss Burgos all questions answered to the best of my abilities. Discharge Planning Discharge Today. Robert Smith MD January 06, 2017 08:47
[2017-01-06] MEDS: LIPASE/PROTEASE/AMYLASE (24,000/76,000/120,000) CAP PO SCH (09:37)
== END 2017-01-06 09:53 | disposition home or self-care (01) ==
LOC: NEPC 03:51 → UNDOADMOB 05:47 → NEDA 05:47 → INTOOBSV 05:47 → OBSVTOIN 06:07 → N07B 07:26 → NEDA 07:26 → N07B 16:09 → UNDODISOB 01-06 09:53
PROVIDERS: ADMIT Internal Medicine; ATTEND Internal Medicine
DX: K55.21 Angiodysplasia of colon with hemorrhage (principal); K31.811 Angiodysplasia of stomach and duodenum with bleeding; N39.0 Urinary tract infection, site not specified; B95.2 Enterococcus as the cause of diseases classified elsewhere; R33.8 Other retention of urine; N32.3 Diverticulum of bladder; R35.0 Frequency of micturition; R39.15 Urgency of urination; R30.0 Dysuria; K86.1 Other chronic pancreatitis; K92.1 Melena; K44.9 Diaphragmatic hernia without obstruction or gangrene; K59.00 Constipation, unspecified; K29.70 Gastritis, unspecified, without bleeding; K21.0 Gastro-esophageal reflux disease with esophagitis; I10 Essential (primary) hypertension; K64.8 Other hemorrhoids; K64.4 Residual hemorrhoidal skin tags; J44.9 Chronic obstructive pulmonary disease, unspecified; G47.33 Obstructive sleep apnea (adult) (pediatric); M81.0 Age-related osteoporosis without current pathological fracture; I25.10 Atherosclerotic heart disease of native coronary artery without angina pectoris; F41.9 Anxiety disorder, unspecified; Z86.73 Personal history of transient ischemic attack (TIA), and cerebral infarction without residual deficits; Z72.0 Tobacco use; Z85.46 Personal history of malignant neoplasm of prostate
CPT/HCPCS: 71010; 74176; 80053; 81001; 82550; 82552; 83690; 83880; 84484; 85007; 85014; 85018; 85025; 85027; 85610; 85730; 86850; 86900; 86901; 86920; 87077; 87086; 87186; 93005; 96374; 96375; 99285; C9113; G0378; J0290; J0696; J2270; J2405; J7030; J7040; Q9963

== ENCOUNTER 2017-01-13 04:25 | Inpatient (IN) | payer MEDICAID ==
[2017-01-13] VITALS (8 sets, daily range): BP systolic 130–145; BP diastolic 62–70; PULSE 81–92; RESP 16–18; TEMP 98.3–98.5; O2SAT 87–97
[~2017-01-13] VITALS: Ht 177.8 cm; Wt 72.0 kg
[~2017-01-13 04:25] MED LIST changes: +ASPI81CH7 CHEW; -BENEPOW8 PO; +FAMO1TAB37 PO; +MACR100C3 PO; +MILKSUS PO; +PANT40TA3 PO; -PROT40TA PO; +XANA1TAB2 PO
[2017-01-13] MEDS ORDERED: NITROGLYCERIN 0.4 MG SL 25 TABS/BTL SL ONE (04:46)
[2017-01-13] MEDS ORDERED: SODIUM CHLORIDE 0.9% FLUSH 10 ML FLUSH IVF PRN (05:00)
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
[2017-01-13 05:11] LABS: BLOOD GAS BASE EXCESS 3.8 mmol/L (-2-2); BLOOD GAS CARBOXYHEMOGLOBIN 3.6 % (0-4); BLOOD GAS HCO3 28 mmol/L (22-26); BLOOD GAS METHEMOGLOBIN 0.5 % (0-2); BLOOD GAS O2 HGB SATURATION 88 % (90-100); BLOOD GAS OXYGEN CONTENT 13.9 Vol % (12.0-20.0); BLOOD GAS PCO2 39 mmHg (38-42); BLOOD GAS PO2 58 mmHG (61-120); BLOOD GAS TOTAL HGB 11.3 G/DL (12.0-16.0); CRITICAL VALUE YES; DRAW SITE RT RADIAL; LITER FLOW 4 L/M; NUMBER OF ARTERIAL PUNCTURES 2; OXYGEN DEVICE NASAL CANNULA; STAT YES; TEMP CORR TO 98.6; ULNAR PULSE PRESENT
[2017-01-13] MEDS: RESP: ALBUTEROL 2.5 MG/IPRATROPIUM 0.5 MG NEB (SCH) INH (05:31)
[2017-01-13 05:34] LABS: AUTOMATED NEUTROPHIL # 11.5 TH/MM3 (1.8-7.7); BASOPHIL # 0.1 TH/MM3 (0-0.2); BASOPHIL % 0.4 % (0.0-2.0); EOSINOPHIL % 12.6 % (0.0-4.0); HEMATOCRIT 35.4 % (39.0-51.0); HEMO FLAGS DIFF FINAL; LYMPH % 9.6 % (9.0-44.0); LYMPHOCYTE # 1.5 TH/MM3 (1.0-4.8); MEAN CELL VOLUME 86.5 FL (80.0-100.0); MEAN CORPUSCULAR HEMOGLOBIN 27.1 PG (27.0-34.0); MEAN CORPUSCULAR HGB CONC 31.3 % (32.0-36.0); NEUT % 72.4 % (16.0-70.0); PLATELET COUNT 347 TH/MM3 (150-450); RED BLOOD COUNT 4.09 MIL/MM3 (4.50-5.90); RED CELL DISTRIBUTION WIDTH 19.9 % (11.6-17.2); WHITE BLOOD COUNT 15.9 TH/MM3 (4.0-11.0)
[2017-01-13 05:38] LABS: ANION GAP 9 MEQ/L (5-15); BICARBONATE 29.2 MEQ/L (21.0-32.0); BLOOD UREA NITROGEN 22 MG/DL (7-18); CHLORIDE 103 MEQ/L (98-107); GLOMERULAR FILTRATION RATE 99 ML/MIN (>89); POTASSIUM 3.6 MEQ/L (3.5-5.1); SODIUM (NA) 141 MEQ/L (136-145)
[2017-01-13 05:44] LABS: CREATINE KINASE 65 U/L (39-308)
[2017-01-13 05:49] LABS: APTT (PATIENT) 30.9 SEC (24.3-30.1)
[2017-01-13] MEDS ORDERED: FAMO20TA2 PO (06:09)
[2017-01-13] MEDS ORDERED: PROM12.54 PO (06:09)
[2017-01-13] MEDS ORDERED: MORPHINE SULFATE 4 MG/ML INJ IV PUSH ONE (06:15)
[2017-01-13] MEDS ORDERED: AZITHROMYCIN 250 MG TAB PO ONE (06:30)
[2017-01-13] MEDS ORDERED: cefTRIAXone INJ 1,000 MG in SODIUM CHLORIDE 0.9% INJ 100 ML IV ONE (06:30)
[2017-01-13] MEDS ORDERED: SODIUM CHLOR 0.9% 1000 ML INJ 1,000 ML IV ONE (06:45)
[2017-01-13] MEDS ORDERED: SODIUM CHLORIDE 0.9% FLUSH 10 ML FLUSH IV FLUSH PRN (06:45)
[2017-01-13] MEDS ORDERED: NALOXONE HCL 0.4 MG/ML AMP IV PRN (06:45)
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
[2017-01-13] MEDS: CEFEPIME INJ 1,000 MG in SODIUM CHLORIDE 0.9% INJ 100 ML IV SCH ×2 (07:56→20:38)
[2017-01-13] MEDS: SODIUM CHLORIDE 0.9% FLUSH 10 ML FLUSH IV FLUSH SCH ×2 (08:34→20:39)
[2017-01-13] MEDS: MORPHINE SULFATE 4 MG/ML INJ IV PUSH PRN ×5 (11:23→23:51)
--- NOTE | 2017-01-13 11:41 | RADRPT ---
EXAM DATE/TIME: 01/13/2017 10:07 [facility] COMPARISON: No previous studies available for comparison. INDICATIONS : Chest pain with dyspnea and diaphoresis. DOSE: 8.8 mCi Tc99m MAA IV 0.79 mCi Tc99m DTPA aerosol MEDICAL HISTORY : Chronic obstructive pulmonary disease. Gastroesophageal reflux disease. Myocardial infarction. Hypert ension, pancreatitis and prostate cancer. SURGICAL HISTORY : Cholecystectomy. Left hip and lung surgery. ENCOUNTER: Initial ACUITY: 1 day PAIN SCALE: 3/10 LOCATION: Left chest TECHNIQUE: Following five minutes of tidal breathing of DTPA aerosol, planar images of the lungs were performed in eight projections. The patient was then injected with MAA, and eight-view perfusion scan was perf ormed. FINDINGS: There is a homogeneous pattern of aerosol delivery to the periphery of both lungs. No focal ventilat ory defects are seen. The perfusion lung scan demonstrates a homogenous pattern of uptake in both lungs. No segmental or s ubsegmental defects are seen. CONCLUSION: Normal examination. Akira Mari MD on January 13, 2017 at 11:38 Board Certified Radiologist. This report was verified electronically.
[2017-01-13 14:30] LABS: CREATINE KINASE 50 U/L (39-308)
[2017-01-13] MEDS: SODIUM CHLOR 0.9% 1000 ML INJ 1,000 ML IV SCH (15:37)
--- NOTE | 2017-01-13 16:10 | EKG ---
Date Performed: 01/13/2017 Time Performed: 04:30:33 PTAGE: 61 years EKG: Sinus rhythm NONSPECIFIC T-WAVE ABNORMALITY When compared to previous tracing, Nonspecific ST-T changes Are now p resent. BORDERLINE ECG PREVIOUS TRACING : 01/02/2017 04.45.28 DOCTOR: Nazario Hernandez Interpretating Date/Time 01/13/2017 16:09:04
[2017-01-13] MEDS ORDERED: RESP: ALBUTEROL 2.5 MG/IPRATROPIUM 0.5 MG NEB (PRN) NEB (17:15)
[2017-01-13] MEDS: LIPASE/PROTEASE/AMYLASE (24,000/76,000/120,000) CAP PO SCH (17:19)
[2017-01-13] MEDS: metroNIDAZOLE 500 MG INJ 100 ML IV SCH (17:25)
--- NOTE | 2017-01-13 20:26 | RADRPT ---
EXAM DATE/TIME: 01/13/2017 19:48 [facility] COMPARISON: CT ABDOMEN & PELVIS W/O CONTRAST, January 03, 2017, 17:59. CHEST SINGLE AP, January 13, 2017, 6:06. CT THOR AX W/O CONTRAST, January 12, 2015, 13:15. INDICATIONS : Hypoxia; possible infiltrate. RADIATION DOSE: 5.10 CTDIvol (mGy) MEDICAL HISTORY : Myocardial infarction. Hypertension. Carcinoma, prostate. GERD SURGICAL HISTORY : Cholecystectomy. Right lobectomy ENCOUNTER: Initial ACUITY: 1 day PAIN SCALE: 2/10 LOCATION: chest TECHNIQUE: Volumetric scanning of the chest was performed. Using automated exposure control and adjustment of t he mA and/or kV according to patient size, radiation dose was kept as low as reasonably achievable to obtain optimal diagnostic quality images. FINDINGS: LUNGS: Bibasilar areas of consolidation are in somewhat linear in nature. These are new from the prior study . Small areas of air bronchogram formation noted. Emphysematous changes are seen within the lung apic es. No appreciable bronchiectasis. PLEURAE: Tiny bilateral pleural effusions are new from the prior study. MEDIASTINUM: The heart is at the upper limits of normal in terms of size. A small pericardial effusion is stable f rom the prior exam. Pulmonary arteries and aorta are normal in caliber. No gross adenopathy. AXILLAE: Within normal limits. No lymphadenopathy. MUSCULOSKELETAL: Within normal limits for patient age. MISCELLANEOUS: The visualized upper abdominal organs demonstrate no acute abnormality. CONCLUSION: 1. Bibasilar areas of consolidation with tiny bilateral pleural effusions. This is new from the prior exam. This could represent infectious infiltrates. 2. Stable small pericardial effusion. Polo Hogan Jr., MD on January 13, 2017 at 20:16 Board Certified Radiologist. This report was verified electronically.
[2017-01-13] MEDS: amLODIPine BESYLATE 5 MG TAB PO SCH (20:38)
[2017-01-13] MEDS: methylPREDNISolone SOD SUCC 40 MG/1 ML VIAL IV PUSH SCH (20:38)
[2017-01-13] MEDS: METOPROLOL SUCCINATE 50 MG EXTENDED RELEASE TAB PO SCH (20:38)
[2017-01-13] MEDS: TAMSULOSIN HCL 0.4 MG CAP PO SCH (20:38)
[2017-01-13] MEDS: FAMOTIDINE 20 MG TAB PO SCH (20:38)
[2017-01-13 21:44] LABS: CREATINE KINASE 49 U/L (39-308)
[2017-01-13] MEDS: ALPRAZolam 1 MG TAB PO PRN (21:53)
[2017-01-13] MEDS: TEMAZEPAM 15 MG CAP PO PRN (21:53)
[2017-01-13] MEDS: RESP: ALBUTEROL 2.5 MG/IPRATROPIUM 0.5 MG NEB (SCH) NEB (22:00)
--- NOTE | 2017-01-13 23:41 | HHI.HP ---
[facility] Ravin P[facility]rez Admission Diagnosis Hypoxic respiratory failure Diagnoses: Travel History International Travel<30 Days: No Contact w/Intl Traveler <30 Da: No Traveled to Known Affected Are: No History of Present Illness Patient seen 01/13 around 3 PM. 61-year-old male with a history of anemia, anxiety, COPD, chronic pancreatitis, GERD, hypertension, prostate cancer status post radiation 2003. Patient reports that sharp , nonradiating left-sided pleuritic chest pain awoke him from sleep around 2:30 AM. He is not quite sure what happened last night, but says he awoke around 2:30 AM, and appears from his clothing when he woke up that he may have vomited on himself. He does report a recent UTI with hematuria , no dysuria which appears to have resolved on Macrobid. He reports previously feeling at baseline yesterday. Patient reports fatigue at baseline with chronic musculoskeletal pain.. Review of Systems Performed and negative except for history of present illness and past medical history. 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 Residual right upper extremity spastic paresis History of atrial fibrillation Coronary artery disease History of GI bleed History of pneumonia, pleural effusion with thoracotomy and decortication. Past Surgical History History of left rotator cuff repair Thoracotomy Left hip Abdominal exploratory laparotomy Reported Medications Reported Meds & Active Scripts Active Macrodantin (Nitrofurantoin Macrocrystal) 100 Mg Cap 100 Mg PO QID Lortab (Hydrocodone-Acetaminophen) 10-325 Mg Tab 1 Tab PO Q4H PRN do not take this medicine if you will drive a car or use a machine, only use it when resting at home Reported Famotidine 20 Mg Tab 20 Mg PO BID Promethazine (Promethazine HCl) 12.5 Mg Tab 12.5 Mg PO Q6H PRN Milk of Magnesia Liq (Magnesium Hydroxide) 400 Mg/5 Ml Susp 30 Ml PO BID PRN Hydrochlorothiazide 25 Mg Tab 25 Mg PO EVERY OTHER DAY Xanax (Alprazolam) 1 Mg Tab 1 Mg PO BID PRN Aspirin Children's (Aspirin) 81 Mg Chew 81 Mg CHEW EVERY OTHER DAY Temazepam 30 Mg Cap 30 Mg PO HS PRN Zenpep (Pancrelipase) 40,000-136,000-218,000 Units Cap 1 Cap PO TIDPC Potassium Chloride ER (Potassium Chloride) 20 Meq Tab 20 Meq PO DAILY Flomax (Tamsulosin HCl) 0.4 Mg Cap 0.4 Mg PO BID Metoprolol Succinate ER 24 HR (Metoprolol Succinate) 50 Mg Tab 50 Mg PO BID Amlodipine (Amlodipine Besylate) 5 Mg Tab 5 Mg PO BID Proventil Hfa 6.7 GM Inh (Albuterol Sulfate) 90 Mcg/Act Aer 2 Puff INH Q6H PRN Allergies: Coded Allergies: Cardura (Verified Allergy, Severe, SOB,CHEST PAIN, 01/13/17) Cipro (Verified Allergy, Severe, RASH, SWOLLEN FACE, 01/13/17) Codeine (Verified Allergy, Severe, sob, 01/13/17) Contrast Media (Verified Allergy, Severe, BLISTERS AND EDEMA AT SITE, 01/13) Imodium (Verified Allergy, Severe, rash, 01/13/17) BROKE OUT IN RASH, AND SWELLING AROUND NECK Nonsteroidal Anti-Inflammatory Agts (Verified Allergy, Severe, 01/13/17) Spironolactone (Verified Allergy, Severe, Bleeding, 01/13/17) Fentanyl (Verified Allergy, Intermediate, rash, 01/13/17) Corticosteroids (Verified Adverse Reaction, Severe, HEART MURMUR, 01/13/17) MRI PRECAUTION (Verified Adverse Reaction, Severe, SHRAPNEL IN C-SPINE per Dr. Smart 10/26/04, 01/13/17) Uncoded Allergies: FENTYNAL (Allergy, Severe, RASH AND BLISTERS, 12/27/16) PER PATIENT Family History Mother with gallbladder problems. Father is estranged. Social History Patient smokes 2 cigarettes a day for the past 9 years. Nondrinker. Physical Exam Vital Signs Vital Signs Date Time Temp Pulse Resp B/P Pulse Ox O2 Delivery O2 Flow Rate FiO2 01/13/17 20:30 98.3 81 16 145/63 96 01/13/17 15:50 98.4 83 16 137/68 97 01/13/17 11:30 98.3 82 16 138/62 93 01/13/17 09:00 98.5 85 16 130/65 92 01/13/17 08:51 Nasal Cannula 2.00 01/13/17 08:03 18 01/13/17 07:09 98 22 94 Nasal Cannula 4 01/13/17 05:34 93 Nasal Cannula 4.00 01/13/17 05:11 95 Nasal Cannula 2 01/13/17 05:11 18 87 Room Air 01/13/17 04:33 98.3 87 18 135/70 94 Physical Exam GENERAL: This is a well-nourished, well-developed patient, in no apparent distress.alert and oriented 3. SKIN: No rashes, ecchymoses or lesions. Cool and dry. HEAD: Atraumatic. Normocephalic. No temporal or scalp tenderness. EYES: Pupils equal round and reactive. Extraocular motions intact. No scleral icterus. No injection or drainage. ENT: Nose without bleeding, purulent drainage or septal hematoma. Throat without erythema, tonsillar hypertrophy or exudate. Uvula midline. Airway patent. NECK: Trachea midline. No JVD or lymphadenopathy. Supple, nontender, no meningeal signs. CARDIOVASCULAR: Regular rate and rhythm without murmurs, gallops, or rubs. RESPIRATORY: Decreased breath sounds at the bases. Rales at the bases. GASTROINTESTINAL: Abdomen soft, non-tender, nondistended. No hepato-splenomegaly , or palpable masses. No guarding. MUSCULOSKELETAL: Right upper extremity spastic paresis with contractures. No joint tenderness, effusion, or edema noted. No calf tenderness. Negative Homans sign bilaterally. NEUROLOGICAL: Awake and alert. Cranial nerves II through XII intact. Right upper extremity spastic paresis as above. Bilateral lower extremities with strength intact.. Normal speech. Laboratory Laboratory Tests Test 01/13/17 01/13/17 01/13/17 01/13/17 04:58 04:59 05:00 05:04 White Blood Count 15.9 Red Blood Count 4.09 Hemoglobin 11.1 Hematocrit 35.4 Mean Corpuscular Volume 86.5 Mean Corpuscular Hemoglobin 27.1 Mean Corpuscular Hemoglobin 31.3 Concent Red Cell Distribution Width 19.9 Platelet Count 347 Mean Platelet Volume 7.8 Neutrophils (%) (Auto) 72.4 Lymphocytes (%) (Auto) 9.6 Monocytes (%) (Auto) 5.0 Eosinophils (%) (Auto) 12.6 Basophils (%) (Auto) 0.4 Neutrophils # (Auto) 11.5 Lymphocytes # (Auto) 1.5 Monocytes # (Auto) 0.8 Eosinophils # (Auto) 2.0 Basophils # (Auto) 0.1 CBC Comment DIFF FINAL Differential Comment Sodium Level 141 Potassium Level 3.6 Chloride Level 103 Carbon Dioxide Level 29.2 Anion Gap 9 Blood Urea Nitrogen 22 Creatinine 0.94 Estimat Glomerular Filtration 99 Rate Random Glucose 125 Calcium Level 8.9 Total Creatine Kinase 65 Troponin I LESS THAN 0.02 B-Type Natriuretic Peptide 12 Blood Gas Puncture Site RT RADIAL Blood Gas Patient Temperature 98.6 Blood Gas HCO3 28 Blood Gas Base Excess 3.8 Blood Gas Oxygen Saturation 88 Arterial Blood pH 7.46 Arterial Blood Partial 39 Pressure CO2 Arterial Blood Partial 58 Pressure O2 Arterial Blood Oxygen Content 13.9 Arterial Blood 3.6 Carboxyhemoglobin Arterial Blood Methemoglobin 0.5 Blood Gas Hemoglobin 11.3 Oxygen Delivery Device NASAL CANNULA Blood Gas Liter Flow 4 Prothrombin Time 11.0 Prothromb Time International 1.0 Ratio Activated Partial 30.9 Thromboplast Time Lactic Acid Level 1.1 Test 01/13/17 01/13/17 13:49 20:15 D-Dimer Quantitative (PE/DVT) 0.65 Total Creatine Kinase 50 49 Troponin I LESS THAN 0.02 LESS THAN 0.02 Date/Time Procedure Status Source Growth 01/13/17 05:04 Aerobic Blood Culture Received Blood Peripheral Pending 01/13/17 05:04 Anaerobic Blood Culture Received Blood Peripheral Pending Result Diagram: 01/13/17 0458 01/13/178 Imaging Last Impressions Chest CT 01/13/17 4269 Signed Impressions: Service Date/Time: Friday, January 13, 2017 19:48 - CONCLUSION: 1. Bibasilar areas of consolidation with tiny bilateral pleural effusions. This is new from the prior exam. This could represent infectious infiltrates. 2. Stable small pericardial effusion. Polo Hogan Jr., MD Chest X-Ray 01/13/176 Signed Impressions: Service Date/Time: Friday, January 13, 2017 06:06 - CONCLUSION: Some prominence of the pulmonary interstitium and vasculature without significant airspace disease or obvious failure. The cardiac/pericardial silhouette may be slightly wider today Les Smart MD Lung Scan-VQ Nuclear Medicine 01/13/17 0000 Signed Impressions: Service Date/Time: Friday, January 13, 2017 10:07 - CONCLUSION: Normal examination. Akira Mari MD Assessment and Plan Assessment and Plan //Sepsis //Possible aspiration pneumonia. //Bilateral pleural effusions -Leukocytosis and tachycardia. Also with aspiration pneumonia -Patient will need anaerobic coverage due to what appears to be vomiting/reflux which appears to have precipitated this admission. -Lactate within normal limits. -VQ scan negative for PE -Consolidation on CT -Continue antibiotics, with anaerobic coverage. Oxygen as necessary. Pulmonology consultation //History of recent UTI. Hematuria as well. This appears to have resolved. We 'll continue on antibiotics. Follow culture. //BPH. Continue tamsulosin //History of hypertension. //Distress CHF //CAD. -EF within normal limits 2014. no Signs of acute fluid overload. -continue aspirin - Continue amlodipine. //GERD. //History of hiatal hernia. -No nausea on evaluation. Continue famotidine. //Prophylaxis. SCDs. Anticoagulation held possibility of thoracentesis. Code Status Full code Discussed Condition With Patient, ED physician, nurse Physician Certification 2 Midnight Certification Type: Admission for Inpatient Services Order for Inpatient Services The services are ordered in accordance with Medicare regulations or non- Medicare payer requirements, as applicable. In the case of services not specified as inpatient-only, they are appropriately provided as inpatient services in accordance with the 2-midnight benchmark. Estimated LOS (days): 3 days is the estimated time the patient will need to remain in the hospital, assuming treatment plan goals are met and no additional complications. Post-Hospital Plan: Not yet determined Nish Ken MD January 13, 2017 23:41
[2017-01-14] VITALS (11 sets, daily range): BP systolic 106–135; BP diastolic 54–73; PULSE 69–88; RESP 16–20; TEMP 97.4–98.1; O2SAT 92–99
[2017-01-14] MEDS: metroNIDAZOLE 500 MG INJ 100 ML IV SCH ×3 (01:36→17:25)
[2017-01-14] MEDS: MORPHINE SULFATE 4 MG/ML INJ IV PUSH PRN ×6 (03:13→21:24)
[2017-01-14] MEDS: SODIUM CHLOR 0.9% 1000 ML INJ 1,000 ML IV SCH ×2 (03:16→16:33)
[2017-01-14] MEDS: RESP: ALBUTEROL 2.5 MG/IPRATROPIUM 0.5 MG NEB (SCH) NEB ×4 (04:30→20:29)
[2017-01-14] MEDS: methylPREDNISolone SOD SUCC 40 MG/1 ML VIAL IV PUSH SCH ×3 (06:41→21:26)
[2017-01-14 08:30] LABS: AUTOMATED NEUTROPHIL # 8.2 TH/MM3 (1.8-7.7); BASOPHIL % 0.4 % (0.0-2.0); EOSINOPHIL # 0.1 TH/MM3 (0-0.4); EOSINOPHIL % 0.9 % (0.0-4.0); HEMO FLAGS DIFF FINAL; LYMPH % 8.8 % (9.0-44.0); LYMPHOCYTE # 0.8 TH/MM3 (1.0-4.8); MEAN CELL VOLUME 86.4 FL (80.0-100.0); MEAN CORPUSCULAR HEMOGLOBIN 27.7 PG (27.0-34.0); MEAN CORPUSCULAR HGB CONC 32.1 % (32.0-36.0); MONO % 3.1 % (0.0-8.0); NEUT % 86.8 % (16.0-70.0); PLATELET COUNT 330 TH/MM3 (150-450); RED BLOOD COUNT 3.59 MIL/MM3 (4.50-5.90); RED CELL DISTRIBUTION WIDTH 20.1 % (11.6-17.2); WHITE BLOOD COUNT 9.4 TH/MM3 (4.0-11.0)
[2017-01-14] MEDS: amLODIPine BESYLATE 5 MG TAB PO SCH ×2 (08:53→21:26)
[2017-01-14] MEDS: TAMSULOSIN HCL 0.4 MG CAP PO SCH ×2 (08:53→21:26)
[2017-01-14] MEDS: LIPASE/PROTEASE/AMYLASE (24,000/76,000/120,000) CAP PO SCH ×3 (08:53→17:24)
[2017-01-14] MEDS: FAMOTIDINE 20 MG TAB PO SCH ×2 (08:53→21:26)
[2017-01-14] MEDS: METOPROLOL SUCCINATE 50 MG EXTENDED RELEASE TAB PO SCH ×2 (08:54→21:25)
[2017-01-14] MEDS: CEFEPIME INJ 1,000 MG in SODIUM CHLORIDE 0.9% INJ 100 ML IV SCH ×2 (08:55→21:25)
[2017-01-14] MEDS: SODIUM CHLORIDE 0.9% FLUSH 10 ML FLUSH IV FLUSH SCH ×2 (09:00→21:26)
[2017-01-14 09:24] LABS: BICARBONATE 24.2 MEQ/L (21.0-32.0); POTASSIUM 4.4 MEQ/L (3.5-5.1)
--- NOTE | 2017-01-14 11:06 | MB ---
cc: [facility] NAQ[facility] DATE OF CONSULTATION: 01/14/2017. REASON FOR CONSULTATION: COPD and pneumonia. HISTORY OF PRESENT ILLNESS: This is a 61-year-old man with a history of COPD, chronic pancreatitis and history of prostate cancer status post radiation who was admitted through the emergency room for shortness of breath and left-sided chest pain. The patient states the pain was short and was radiating down the left arm and he had a cardiac workup done and a chest x-ray was done which showed evidence of increased interstitial markings. The patient also had a VQ lung scan which showed no significant evidence of pulmonary emboli. The patient has had previous history of pneumonia and has and had been started on empiric antibiotic therapy and he is now on oxygen at 2 liters nasal cannula. He has previously been on anticoagulants. The patient denied any hemoptysis, fevers or chills. He was coughing up some whitish-yellow mucus. PAST MEDICAL HISTORY: Has included: 1. History of congestive heart failure. 2. Previous myocardial infarct. 3. History of atrial arrhythmias. 4. History for a CVA. 5. GI bleed. 6. Past history for pneumonia with persistent pleural effusion requiring thoracotomy and decortication. 7. He also has had left rotator cuff repair. 8. Left hip repair. 9. Cholecystectomy. 10. Abdominal exploratory surgery. HABITS: The patient smoked half to one-pack per day for over 40 years. No significant alcohol use. ALLERGIES: 1. CIPRO. 2. CODEINE. 3. IV CONTRAST MEDIA. 4. IMODIUM. 5. FENTANYL. 6. ALDACTONE. MEDICATION LIST: 1. Pepcid. 2. Hydrochlorothiazide . 3. Xanax. 4. Temazepam. 5. Potassium chloride. 6. Flomax. 7. Amlodipine. 8. Metoprolol. 9. Proventil inhaler. FAMILY HISTORY: Noncontributory. REVIEW OF SYSTEMS: The patient has left chest pain. He has abdominal pains. He also has shortness of breath with exertion. He has had no leg swelling or calf muscle pains. He has some joint pain of his extremities and hips and back. Other system review as in the presenting complaint. PHYSICAL EXAMINATION: GENERAL: This is an averagely built middle-aged -Turkish male who is alert, pale and seems to be in some pain. VITAL SIGNS: Blood pressure 138/80, pulse is 85, respirations are 20, temperature 98.5. HEAD, EYES, EARS, NOSE, THROAT: Head normocephalic. The pupils are reactive and equal. Tongue is moist. Throat is mildly injected. He has mild cerumen. NECK: The neck is supple. No bruits. No thyroid enlargement. CHEST: Decreased excursions with occasional crackles at the lung bases. There are also wheezes anteriorly. Prolonged expirations. HEART: Heart sounds are irregular. S1-S2. No murmur. No S3. ABDOMEN: The abdomen is soft and protuberant with tenderness in the upper abdomen. Bowel sounds are active. The liver edge is just felt below the costal margin. EXTREMITIES: Minimal edema. NEUROLOGIC: Reflexes are 1+ with no gross motor deficits. Cranial nerves are grossly intact. SKIN: No lesions are noted. IMPRESSION: 1. COPD with acute exacerbation. 2. Probable early pneumonia with pleuritic chest pain. 3. History of chronic pancreatitis. 4. Cardiomyopathy. 5. Degenerative arthritis. 6. Rule out pulmonary emboli. PLAN: 1. The patient has been placed on 02 at 3 liters nasal cannula to maintain saturations over 92%. 2. He will continue with nebulized DuoNeb solution four times a day. 3. Continue with antibiotic coverage including Rocephin 1 gram IV daily and Zithromax 500 milligrams IV daily. 4. CT scan of the chest without contrast to evaluate him for any lung nodules or effusions. 5. Solu-Medrol 40 milligrams twice daily was added. 6. The patient will have a pulmonary function test done and if clinically stable, sputum will be sent for Gram stain and culture. Thank you Dr. Flower for this consultation. MD ZENAIDA Fontenot/SUSAN /8:02 AM /10:54 AM
--- NOTE | 2017-01-14 16:29 | EKG ---
Date Performed: 01/13/2017 Time Performed: 15:45:50 PTAGE: 61 years EKG: Sinus rhythm . Anterolateral ST-T changes are nonspecific Borderline ECG Since PREVIOUS TRACING 01/13/2017, no significant change. PREVIOUS TRACIN01/13/2017 04.30 DOCTOR: Lakhwinder Lockett Interpretating Date/Time 01/14/2017 16:28:32
--- NOTE | 2017-01-14 16:29 | EKG ---
Date Performed: 01/13/2017 Time Performed: 17:15:28 PTAGE: 61 years EKG: Sinus rhythm NORMAL ECG Since PREVIOUS TRACING 01/13/2017, ST-T changes have improved. PREVIOUS TRACIN01/13/2017 04 .30 DOCTOR: Lakhwinder Lockett Interpretating Date/Time 01/14/2017 16:28:55
--- NOTE | 2017-01-14 18:44 | HHI.PR ---
Subjective Remarks Patient says he is feeling about the same as yesterday. Denies any nausea. Reports continued shortness of breath. Reports pleuritic chest pain present yesterday, continues unchanged. Objective Vital Signs Date Time Temp Pulse Resp B/P Pulse Ox O2 Delivery O2 Flow Rate FiO2 01/14/17 16:00 97.7 77 20 132/68 94 01/14/17 12:00 97.4 88 20 135/73 99 01/14/17 09:51 93 21 01/14/17 08:00 97.5 77 20 116/58 95 01/14/17 04:31 92 Nasal Cannula 2.00 01/14/17 04:00 Nasal Cannula 3.00 01/14/17 04:00 97.4 69 20 107/54 94 01/14/17 00:00 Nasal Cannula 3.00 01/14/17 00:00 98.1 78 16 106/56 96 01/13/17 20:30 98.3 81 16 145/63 96 01/13/17 20:00 Nasal Cannula 3.00 01/13/17 20:00 92 I/O 01/13/17 01/13/17 01/13/17 01/14/17 01/14/17 01/14/17 07:00 15:00 23:00 07:00 15:00 23:00 Intake Total 885 ml 706 ml Output Total 551 ml 200 ml 350 ml 200 ml 250 ml Balance -551 ml 685 ml 356 ml -200 ml -250 ml Intake Oral 60 ml 120 ml IV Total 825 ml 586 ml Output Urine Total 550 ml 200 ml 350 ml 200 ml 250 ml Stool Total 1 ml # Voids 1 3 # Bowel Movements 0 Result Diagram: 01/14/17 0655 01/14/17 06 Objective Remarks GENERAL: Lying in bed. Appears comfortable. Alert and oriented 3. SKIN: Warm and dry. HEAD: Normocephalic. EYES: No scleral icterus. No injection or drainage. NECK: Supple, trachea midline. No JVD . CARDIOVASCULAR: Regular rate and rhythm without murmurs, gallops, or rubs. RESPIRATORY: Breath sounds increased in the bases. Rales bilaterally. Unchanged from yesterday.. GASTROINTESTINAL: Abdomen soft, non-tender, nondistended. MUSCULOSKELETAL: No cyanosis, or edema. BACK: Nontender without obvious deformity. No CVA tenderness. A/P Assessment and Plan //Sepsis. Improving //Possible aspiration pneumonia. //Bilateral pleural effusions -Leukocytosis and tachycardia on admission, aspiration pneumonia. -Patient reports reflux/vomiting/aspiration event suspected the night of presentation. -VQ scan negative for PE -Consolidation on CT -Continue antibiotics, with anaerobic coverage. Oxygen as necessary. -01/14. White count improving. Pulmonology consultation appreciated. //Suspected COPD exacerbation Pulmonology following Continue duo nebs, steroids. Oxygen as necessary. Continue to monitor. //History of recent UTI. Hematuria as well. This appears to have resolved. We 'll continue on antibiotics. -Follow culture ordered. //BPH. Continue tamsulosin //History of hypertension. //Distress CHF //CAD. -EF within normal limits 2014. no Signs of acute fluid overload. -continue aspirin - Continue amlodipine. //GERD. //History of hiatal hernia. -No nausea. Continue famotidine. -Headed bed at 30. //Pleuritic Chest pain.. Troponins negative 3. VQ scan negative for PE. Most likely secondary to pneumonia, pleural effusion. Continue to monitor //Prophylaxis. SCDs. Start Lovenox. Discharge Planning Case management assistance appreciated. Continue treatment for pneumonia Nish Ken MD January 14, 2017 18:44
[2017-01-14 20:27] LABS: BLOOD, URINE NEG (NEG); COMMENT (UR) CULT NOT INDICATED; CULTURE IF INDICATED CULT NOT INDICATED; GLUCOSE,URINE NEG (NEG); KETONE, URINE NEG (NEG); NITRITE,URINE NEG (NEG); URINE COLOR YELLOW (YELLW/STRAW)
[2017-01-14] MEDS: ENOXAPARIN SODIUM 40 MG/0.4 ML SYRINGE SQ SCH (21:25)
[2017-01-14] MEDS: TEMAZEPAM 15 MG CAP PO PRN (22:08)
[2017-01-14] MEDS: ALPRAZolam 1 MG TAB PO PRN (22:08)
[2017-01-15] VITALS (9 sets, daily range): BP systolic 105–128; BP diastolic 56–63; PULSE 66–85; RESP 18–20; TEMP 97.3–98.2; O2SAT 96–100
[2017-01-15] MEDS: MORPHINE SULFATE 4 MG/ML INJ IV PUSH PRN ×8 (01:18→22:39)
[2017-01-15] MEDS: metroNIDAZOLE 500 MG INJ 100 ML IV SCH ×3 (01:18→18:16)
[2017-01-15] MEDS: RESP: ALBUTEROL 2.5 MG/IPRATROPIUM 0.5 MG NEB (SCH) NEB ×4 (03:52→20:29)
[2017-01-15] MEDS: methylPREDNISolone SOD SUCC 40 MG/1 ML VIAL IV PUSH SCH ×3 (06:18→20:51)
[2017-01-15] MEDS: SODIUM CHLORIDE 0.9% FLUSH 10 ML FLUSH IV FLUSH SCH ×2 (09:00→20:51)
[2017-01-15] MEDS: LIPASE/PROTEASE/AMYLASE (24,000/76,000/120,000) CAP PO SCH ×3 (09:26→18:16)
[2017-01-15] MEDS: METOPROLOL SUCCINATE 50 MG EXTENDED RELEASE TAB PO SCH ×2 (09:26→20:51)
[2017-01-15] MEDS: FAMOTIDINE 20 MG TAB PO SCH ×2 (09:27→20:51)
[2017-01-15] MEDS: CEFEPIME INJ 1,000 MG in SODIUM CHLORIDE 0.9% INJ 100 ML IV SCH ×2 (09:27→20:51)
[2017-01-15] MEDS: ASPIRIN 81 MG CHEW TAB CHEW SCH (09:27)
[2017-01-15] MEDS: amLODIPine BESYLATE 5 MG TAB PO SCH ×2 (09:27→20:51)
[2017-01-15] MEDS: TAMSULOSIN HCL 0.4 MG CAP PO SCH ×2 (09:27→20:51)
[2017-01-15 12:55] LABS: HEMOGLOBIN A1a 1.3 %; HEMOGLOBIN A1b 1.7 %; HEMOGLOBIN Ao 84.2 %; HEMOGLOBIN LA1C 2.7 %; HEMOGLOBIN P3 5.3 %
[2017-01-15 16:33] LABS: HEMATOCRIT 32.9 % (39.0-51.0); MEAN CELL VOLUME 86.9 FL (80.0-100.0); MEAN CORPUSCULAR HEMOGLOBIN 27.2 PG (27.0-34.0); MEAN CORPUSCULAR HGB CONC 31.3 % (32.0-36.0); PLATELET COUNT 346 TH/MM3 (150-450); RED BLOOD COUNT 3.79 MIL/MM3 (4.50-5.90)
[2017-01-15 16:37] LABS: HEMO FLAGS AUTO DIFF
[2017-01-15 17:04] LABS: BANDS 7 % (0-6); METAMYELOCYTES 2 % (0-1); MYELOCYTES 1 % (0-0); NEUTROPHIL # MANUAL DIFF 21.2 TH/MM3 (1.8-7.7); POLYS (SEG NEUTROPHILS) 82 % (16-70); WBC DIFF SAMPLE 100
[2017-01-15 17:05] LABS: PLATELET ESTIMATE SMEAR NORMAL (NORMAL); PLATELET MORPHOLOGY NORMAL (NORMAL); SCAN/DIFF FINAL DIFF MANUAL
[2017-01-15 17:06] LABS: BICARBONATE 22.8 MEQ/L (21.0-32.0); POTASSIUM 4.5 MEQ/L (3.5-5.1)
[2017-01-15] MEDS: ENOXAPARIN SODIUM 40 MG/0.4 ML SYRINGE SQ SCH (19:00)
[2017-01-15] MEDS: TEMAZEPAM 15 MG CAP PO PRN (20:50)
[2017-01-15] MEDS: ALPRAZolam 1 MG TAB PO PRN (20:51)
--- NOTE | 2017-01-15 22:09 | HHI.PR ---
Subjective Remarks Patient seen assessment around 2 PM. Says he is feeling about the same as yesterday, but better since admission. He reports right-sided pleuritic chest pain. Has been walking in the sun, however continues to feel fatigued. Objective Vital Signs Date Time Temp Pulse Resp B/P Pulse Ox O2 Delivery O2 Flow Rate FiO2 01/15/17 20:33 96 Nasal Cannula 21 01/15/17 16:00 98.2 66 20 115/56 100 01/15/17 13:40 18 01/15/17 12:00 97.9 76 20 112/56 100 01/15/17 08:54 99 Nasal Cannula 3.00 01/15/17 08:45 100 Nasal Cannula 2.00 01/15/17 08:00 98.0 81 20 128/63 100 01/15/17 04:00 97.3 85 20 112/56 96 01/15/17 04:00 Nasal Cannula 2.00 01/15/17 03:55 98 Nasal Cannula 21 01/15/17 00:00 98.1 85 19 105/59 98 01/15/17 00:00 Nasal Cannula 2.00 I/O 01/14/17 01/14/17 01/14/17 01/15/17 01/15/17 01/15/17 06:59 14:59 22:59 06:59 14:59 22:59 Intake Total 706 ml 853 ml 417 ml 720 ml 200 ml Output Total 350 ml 200 ml 250 ml 400 ml Balance 356 ml -200 ml 603 ml 17 ml 720 ml 200 ml Intake Oral 120 ml 220 ml 220 ml 720 ml IV Total 586 ml 633 ml 197 ml 200 ml Output Urine Total 350 ml 200 ml 250 ml 400 ml # Voids 3 2 3 2 # Bowel Movements 0 0 0 1 2 Result Diagram: 01/15/17 1610 01/15/17 1610 Objective Remarks GENERAL: sitting up on edge of bed. Appears comfortable. Alert and oriented 3. SKIN: Warm and dry. HEAD: Normocephalic. EYES: No scleral icterus. No injection or drainage. NECK: Supple, trachea midline. No JVD . CARDIOVASCULAR: Regular rate and rhythm without murmurs, gallops, or rubs. RESPIRATORY: Breath sounds decreased in the bases.(yesterday should say decreased) Rales bilaterally much improved today. GASTROINTESTINAL: Abdomen soft, non-tender, nondistended. MUSCULOSKELETAL: No cyanosis, or edema. BACK: Nontender without obvious deformity. No CVA tenderness. A/P Assessment and Plan ===== 01/15/17. Oxygenation improving Leukocytosis back up likely secondary to steroids. Continue antibiotics. Repeat chest x-ray in a.m. //Sepsis. Improving //Possible aspiration pneumonia. //Bilateral pleural effusions -Leukocytosis and tachycardia on admission, aspiration pneumonia. -Patient reports reflux/vomiting/aspiration event suspected the night of presentation. -VQ scan negative for PE -Consolidation on CT -Continue antibiotics, with anaerobic coverage. Oxygen as necessary. -01/14. White count improving. Pulmonology consultation appreciated. //Suspected COPD exacerbation Pulmonology following Continue duo nebs, steroids. Oxygen as necessary. Continue to monitor. //History of recent UTI. Hematuria as well. This appears to have resolved. We 'll continue on antibiotics. -Follow culture ordered. //BPH. Continue tamsulosin //History of hypertension. //Distress CHF //CAD. -EF within normal limits 2014. no Signs of acute fluid overload. -continue aspirin -Blood pressure acceptable. Continue to monitor. Continue amlodipine. //GERD. //History of hiatal hernia. -No nausea. Continue famotidine. -Head of bed at 30. //Pleuritic Chest pain.. Troponins negative 3. VQ scan negative for PE. Most likely secondary to pneumonia, pleural effusion. Continues. Continue to monitor //Prophylaxis. SCDs. Continue Lovenox. Discharge Planning Case management assistance appreciated. Continue treatment for pneumonia Nish Ken MD January 15, 2017 22:09
[2017-01-16] VITALS (10 sets, daily range): BP systolic 115–130; BP diastolic 55–66; PULSE 58–78; RESP 16–22; TEMP 97.4–98.2; O2SAT 96–98
[2017-01-16] MEDS: metroNIDAZOLE 500 MG INJ 100 ML IV SCH ×3 (01:29→16:38)
[2017-01-16] MEDS: MORPHINE SULFATE 4 MG/ML INJ IV PUSH PRN ×8 (01:30→22:30)
[2017-01-16] MEDS: RESP: ALBUTEROL 2.5 MG/IPRATROPIUM 0.5 MG NEB (SCH) NEB ×4 (03:39→20:45)
--- NOTE | 2017-01-16 06:34 | RADRPT ---
EXAM DATE/TIME: 01/16/2017 04:22 [place] COMPARISON: CT THORAX W/O CONTRAST, January 13, 2017, 19:48. CHEST SINGLE AP, January 13, 2017, 6:06. INDICATIONS : COPD exacerbation. MEDICAL HISTORY : Myocardial infarction. Hypertension Carcinoma, prostatic. GERD. SURGICAL HISTORY : Cholecystectomy. Lung lobectomy, right. ENCOUNTER: Initial ACUITY: 3 days PAIN SCORE: 4/10 LOCATION: Bilateral chest FINDINGS: Mild bibasilar parenchymal opacities are slightly improved. Cardiac contours are grossly unchanged. B ullet fragment again overlies the low neck. CONCLUSION: Mild bibasilar parenchymal opacities. Peter Bruno MD on January 16, 2017 at 6:31 Board Certified Radiologist. This report was verified electronically.
[2017-01-16] MEDS: FAMOTIDINE 20 MG TAB PO SCH ×2 (08:07→20:39)
[2017-01-16] MEDS: TAMSULOSIN HCL 0.4 MG CAP PO SCH ×2 (08:07→20:39)
[2017-01-16] MEDS: LIPASE/PROTEASE/AMYLASE (24,000/76,000/120,000) CAP PO SCH ×3 (08:07→16:38)
[2017-01-16] MEDS: METOPROLOL SUCCINATE 50 MG EXTENDED RELEASE TAB PO SCH ×2 (08:07→20:39)
[2017-01-16] MEDS: CEFEPIME INJ 1,000 MG in SODIUM CHLORIDE 0.9% INJ 100 ML IV SCH ×2 (08:07→20:39)
[2017-01-16] MEDS: amLODIPine BESYLATE 5 MG TAB PO SCH ×2 (08:07→20:39)
[2017-01-16] MEDS: methylPREDNISolone SOD SUCC 40 MG/1 ML VIAL IV PUSH SCH ×2 (08:07→20:38)
[2017-01-16] MEDS: SODIUM CHLORIDE 0.9% FLUSH 10 ML FLUSH IV FLUSH SCH ×2 (08:08→20:39)
[2017-01-16 09:13] LABS: AUTOMATED NEUTROPHIL # 14.1 TH/MM3 (1.8-7.7); BASOPHIL % 0.1 % (0.0-2.0); EOSINOPHIL % 0.2 % (0.0-4.0); HEMATOCRIT 34.2 % (39.0-51.0); LYMPH % 10.9 % (9.0-44.0); LYMPHOCYTE # 1.9 TH/MM3 (1.0-4.8); MEAN CELL VOLUME 87.2 FL (80.0-100.0); MEAN CORPUSCULAR HEMOGLOBIN 27.5 PG (27.0-34.0); MEAN CORPUSCULAR HGB CONC 31.5 % (32.0-36.0); NEUT % 82.8 % (16.0-70.0); PLATELET COUNT 353 TH/MM3 (150-450); RED BLOOD COUNT 3.92 MIL/MM3 (4.50-5.90); RED CELL DISTRIBUTION WIDTH 20.1 % (11.6-17.2)
[2017-01-16 09:14] LABS: HEMO FLAGS AUTO DIFF
[2017-01-16 09:22] LABS: POTASSIUM 4.2 MEQ/L (3.5-5.1)
[2017-01-16 10:22] LABS: BANDS 8 % (0-6); METAMYELOCYTES 1 % (0-1); MYELOCYTES 1 % (0-0); NEUTROPHIL # MANUAL DIFF 14.6 TH/MM3 (1.8-7.7); PLATELET ESTIMATE SMEAR NORMAL (NORMAL); PLATELET MORPHOLOGY NORMAL (NORMAL); POLYS (SEG NEUTROPHILS) 76 % (16-70); SCAN/DIFF FINAL DIFF MANUAL; WBC DIFF SAMPLE 100
[2017-01-16] MEDS ORDERED: BENZONATATE 100 MG CAP PO PRN (15:00)
--- NOTE | 2017-01-16 15:39 | HHI.PR ---
Subjective Remarks C/O pains in chest CXR is better now. On antibiotics and IV solumedrol.. No fever. Objective Vital Signs Date Time Temp Pulse Resp B/P Pulse Ox O2 Delivery O2 Flow Rate FiO2 01/16/17 12:04 97.7 63 20 115/59 98 130/63 120/61 01/16/17 08:55 97 Nasal Cannula 3.00 01/16/17 08:22 66 01/16/17 08:22 Nasal Cannula 2.00 01/16/17 08:00 97.4 67 20 122/65 98 01/16/17 04:00 97.5 77 22 128/66 98 01/16/17 03:41 96 Nasal Cannula 3.00 01/16/17 00:00 Nasal Cannula 2.00 01/16/17 00:00 98.0 78 18 115/55 97 01/15/17 20:33 96 Nasal Cannula 21 01/15/17 20:20 97.7 72 18 123/59 100 01/15/17 20:00 Nasal Cannula 2.00 01/15/17 16:00 98.2 66 20 115/56 100 I/O 01/15/17 01/15/17 01/15/17 01/16/17 01/16/17 01/16/17 07:00 15:00 23:00 07:00 15:00 23:00 Intake Total 417 ml 720 ml 637 ml 240 ml Output Total 400 ml 400 ml Balance 17 ml 720 ml 237 ml 240 ml Intake Oral 220 ml 720 ml 240 ml 240 ml IV Total 197 ml 397 ml Output Urine Total 400 ml 400 ml # Voids 3 2 3 # Bowel Movements 0 1 2 Result Diagram: 01/16/17 0842 01/16/17 0842 Objective Remarks GENERAL: This is an averagely built middle-aged -[place] male who is alert, pale . HEAD, EYES, EARS, NOSE, THROAT: Head normocephalic. The pupils are reactive and equal. Tongue is moist. Throat is mildly injected. He has mild cerumen. NECK: The neck is supple. No bruits. No thyroid enlargement. CHEST: Decreased excursions with occasional crackles at the lung bases. There are few wheezes anteriorly. Prolonged expirations. HEART: Heart sounds are irregular. S1-S2. No murmur. No S3. ABDOMEN: The abdomen is soft and protuberant with tenderness in the upper abdomen. Bowel sounds are active. The liver edge is just felt below the costal margin. EXTREMITIES: Minimal edema. NEUROLOGIC: Reflexes are 1+ with no gross motor deficits. Cranial nerves are grossly intact. SKIN: No lesions are noted. Assessment and Plan Assessment and Plan IMPRESSION: 1. COPD with acute exacerbation. 2. Probable early pneumonia with pleuritic chest pain. 3. History of chronic pancreatitis. 4. Cardiomyopathy. 5. Degenerative arthritis. 6. Rule out pulmonary emboli. Plan : 1. Continue antibiotics 2. Cont solumedrol 40 mg q12h. 3. CBC,BMP. 4. Nebs qid , duoneb. 5. O2 at 2 l. 6. To rehab soon Sarah Sutherland MD January 16, 2017 15:39
[2017-01-16] MEDS: ENOXAPARIN SODIUM 40 MG/0.4 ML SYRINGE SQ SCH (18:45)
[2017-01-16] MEDS: ALPRAZolam 1 MG TAB PO PRN (20:39)
[2017-01-16] MEDS: TEMAZEPAM 15 MG CAP PO PRN (20:39)
--- NOTE | 2017-01-16 22:55 | HHI.PR ---
Subjective Remarks patient seen around noon. Patient experienced some lightheadedness returning from physical therapy. Pleuritic chest pain continues. Patient reports he is feeling a little better every day. Objective Vital Signs Date Time Temp Pulse Resp B/P Pulse Ox O2 Delivery O2 Flow Rate FiO2 01/16/17 20:45 97 Nasal Cannula 2.00 01/16/17 20:00 58 01/16/17 20:00 Nasal Cannula 1.00 01/16/17 20:00 98.0 64 16 123/66 97 01/16/17 16:00 98.2 69 20 123/60 96 01/16/17 12:04 97.7 63 20 115/59 98 130/63 120/61 01/16/17 08:55 97 Nasal Cannula 3.00 01/16/17 08:22 66 01/16/17 08:22 Nasal Cannula 2.00 01/16/17 08:00 97.4 67 20 122/65 98 01/16/17 04:00 97.5 77 22 128/66 98 01/16/17 03:41 96 Nasal Cannula 3.00 01/16/17 00:00 Nasal Cannula 2.00 01/16/17 00:00 98.0 78 18 115/55 97 I/O 01/15/17 01/15/17 01/15/17 01/16/17 01/16/17 01/16/17 07:00 15:00 23:00 07:00 15:00 23:00 Intake Total 417 ml 720 ml 637 ml 240 ml 540 ml Output Total 400 ml 400 ml Balance 17 ml 720 ml 237 ml 240 ml 540 ml Intake Oral 220 ml 720 ml 240 ml 240 ml 240 ml IV Total 197 ml 397 ml 300 ml Output Urine Total 400 ml 400 ml # Voids 3 2 3 0 # Bowel Movements 0 1 2 0 Result Diagram: 01/16/17 0842 01/16/17 0842 Objective Remarks GENERAL: sitting up on edge of bed. Appears comfortable. Alert and oriented 3. SKIN: Warm and dry. HEAD: Normocephalic. EYES: No scleral icterus. No injection or drainage. NECK: Supple, trachea midline. No JVD . CARDIOVASCULAR: Regular rate and rhythm without murmurs, gallops, or rubs. RESPIRATORY: Breath sounds decreased in the bases.(yesterday should say decreased) Rales bilaterally much improved today. GASTROINTESTINAL: Abdomen soft, non-tender, nondistended. MUSCULOSKELETAL: No cyanosis, or edema. BACK: Nontender without obvious deformity. No CVA tenderness. A/P Assessment and Plan ===== 01/16/17. Oxygenation improved. cont abx. Lightheadedness after ambulating. Likely secondary to deconditioning. Orthostatics within normal limits. Continue to work with physical therapy. Possible discharge either to rehabilitation or home with home health when next 1 -2 days //Sepsis. Improving //Possible aspiration pneumonia. //Bilateral pleural effusions -Leukocytosis and tachycardia on admission, aspiration pneumonia. -Patient reports reflux/vomiting/aspiration event suspected the night of presentation. -VQ scan negative for PE -Consolidation on CT -Continue antibiotics, with anaerobic coverage. Oxygen as necessary. -01/14. White count improving. Pulmonology consultation appreciated. //Suspected COPD exacerbation Pulmonology following Continue duo nebs, steroids. Oxygen as necessary. Continue to monitor. //History of recent UTI. Hematuria as well. This appears to have resolved. We 'll continue on antibiotics. -Follow culture ordered. //BPH. Continue tamsulosin //History of hypertension. //Distress CHF //CAD. -EF within normal limits 2014. no Signs of acute fluid overload. -continue aspirin -Blood pressure acceptable. Continue to monitor. Continue amlodipine. //GERD. //History of hiatal hernia. -No nausea. Continue famotidine. -Head of bed at 30. //Pleuritic Chest pain.. Troponins negative 3. VQ scan negative for PE. Most likely secondary to pneumonia, pleural effusion. Continues. Continue to monitor //Prophylaxis. SCDs. Continue Lovenox. Discharge Planning Case management assistance appreciated. Continue treatment for pneumonia possible discharge to rehabilitation versus home with home health in the next 1- 2 days Nish Ken MD January 16, 2017 22:55
[2017-01-17] VITALS (11 sets, daily range): BP systolic 112–147; BP diastolic 57–73; PULSE 63–80; RESP 18–20; TEMP 97.5–98.2; O2SAT 96–98
[2017-01-17] MEDS: metroNIDAZOLE 500 MG INJ 100 ML IV SCH ×3 (01:31→16:25)
[2017-01-17] MEDS: MORPHINE SULFATE 4 MG/ML INJ IV PUSH PRN ×8 (01:32→21:46)
[2017-01-17] MEDS: RESP: ALBUTEROL 2.5 MG/IPRATROPIUM 0.5 MG NEB (SCH) NEB ×4 (03:54→21:58)
[2017-01-17 07:40] LABS: AUTOMATED NEUTROPHIL # 9.2 TH/MM3 (1.8-7.7); BASOPHIL % 0.1 % (0.0-2.0); EOSINOPHIL % 0.1 % (0.0-4.0); HEMATOCRIT 32.9 % (39.0-51.0); LYMPH % 10.8 % (9.0-44.0); LYMPHOCYTE # 1.3 TH/MM3 (1.0-4.8); MEAN CELL VOLUME 87.2 FL (80.0-100.0); MEAN CORPUSCULAR HEMOGLOBIN 26.8 PG (27.0-34.0); MEAN CORPUSCULAR HGB CONC 30.7 % (32.0-36.0); MONO % 10.5 % (0.0-8.0); NEUT % 78.5 % (16.0-70.0); PLATELET COUNT 367 TH/MM3 (150-450); RED BLOOD COUNT 3.78 MIL/MM3 (4.50-5.90); RED CELL DISTRIBUTION WIDTH 19.5 % (11.6-17.2); WHITE BLOOD COUNT 11.7 TH/MM3 (4.0-11.0)
[2017-01-17 07:52] LABS: HEMO FLAGS AUTO DIFF
[2017-01-17] MEDS: FAMOTIDINE 20 MG TAB PO SCH ×2 (08:59→21:46)
[2017-01-17] MEDS: ASPIRIN 81 MG CHEW TAB CHEW SCH (08:59)
[2017-01-17] MEDS: METOPROLOL SUCCINATE 50 MG EXTENDED RELEASE TAB PO SCH ×2 (08:59→21:46)
[2017-01-17] MEDS: TAMSULOSIN HCL 0.4 MG CAP PO SCH ×2 (08:59→21:46)
[2017-01-17] MEDS: amLODIPine BESYLATE 5 MG TAB PO SCH ×2 (08:59→21:46)
[2017-01-17] MEDS: CEFEPIME INJ 1,000 MG in SODIUM CHLORIDE 0.9% INJ 100 ML IV SCH ×2 (08:59→21:45)
[2017-01-17] MEDS: SODIUM CHLORIDE 0.9% FLUSH 10 ML FLUSH IV FLUSH SCH ×2 (09:00→21:00)
[2017-01-17] MEDS: methylPREDNISolone SOD SUCC 40 MG/1 ML VIAL IV PUSH SCH ×2 (09:00→21:45)
[2017-01-17] MEDS: LIPASE/PROTEASE/AMYLASE (24,000/76,000/120,000) CAP PO SCH ×3 (09:00→18:51)
[2017-01-17 10:09] LABS: BANDS 3 % (0-6); METAMYELOCYTES 1 % (0-1); MYELOCYTES 1 % (0-0); NEUTROPHIL # MANUAL DIFF 9.4 TH/MM3 (1.8-7.7); POLYS (SEG NEUTROPHILS) 75 % (16-70); WBC DIFF SAMPLE 100
[2017-01-17 10:10] LABS: OVALOCYTES 1+ (NORMAL)
[2017-01-17 10:11] LABS: KERATOCYTES OCC (NORMAL); PLATELET ESTIMATE SMEAR NORMAL (NORMAL)
[2017-01-17 10:12] LABS: PLATELET MORPHOLOGY NORMAL (NORMAL); SCAN/DIFF FINAL DIFF MANUAL
[2017-01-17] MEDS: ENOXAPARIN SODIUM 40 MG/0.4 ML SYRINGE SQ SCH (18:52)
--- NOTE | 2017-01-17 19:00 | HHI.PR ---
Subjective Remarks C/O pains in chest . CXR is better now. On antibiotics and seems to be improving. No fever. Objective Vital Signs Date Time Temp Pulse Resp B/P Pulse Ox O2 Delivery O2 Flow Rate FiO2 01/17/17 16:00 97.9 65 20 134/68 97 01/17/17 16:00 Nasal Cannula 2.00 01/17/17 12:00 Room Air 01/17/17 11:36 98.2 65 20 127/63 96 01/17/17 11:32 2.00 01/17/17 11:32 97 21 01/17/17 09:00 63 01/17/17 08:33 96 Nasal Cannula 2.00 01/17/17 08:00 98.1 64 20 127/61 96 01/17/17 08:00 Nasal Cannula 1.00 01/17/17 04:00 Nasal Cannula 1.00 01/17/17 04:00 97.9 71 20 112/57 96 01/17/17 00:00 97.5 69 18 117/58 97 01/17/17 00:00 Nasal Cannula 1.00 01/16/17 20:45 97 Nasal Cannula 2.00 01/16/17 20:00 58 01/16/17 20:00 Nasal Cannula 1.00 01/16/17 20:00 98.0 64 16 123/66 97 I/O 01/16/17 01/16/17 01/16/17 01/17/17 01/17/17 01/17/17 07:00 15:00 23:00 07:00 15:00 23:00 Intake Total 240 ml 540 ml 580 ml 240 ml Output Total 100 ml Balance 240 ml 540 ml 580 ml 140 ml Intake Oral 240 ml 240 ml 480 ml 240 ml IV Total 300 ml 100 ml Output Urine Total 100 ml # Voids 3 0 1 4 # Bowel Movements 0 0 2 Result Diagram: 01/17/17 0608 01/16/17 0842 Objective Remarks GENERAL: This is an averagely built middle-aged -[place] Citizen male who is alert, pale . HEAD, EYES, EARS, NOSE, THROAT: Head normocephalic. The pupils are reactive and equal. Tongue is moist. Throat is clear. NECK: The neck is supple. No bruits. No thyroid enlargement. CHEST: Decreased excursions with occasional crackles at the lung bases. There are few wheezes anteriorly. Prolonged expirations. HEART: Heart sounds are irregular. S1-S2. No murmur. No S3. ABDOMEN: The abdomen is soft and protuberant with tenderness in the upper abdomen. Bowel sounds are active. The liver edge is just felt below the costal margin. EXTREMITIES: Minimal edema. NEUROLOGIC: Reflexes are 1+ with no gross motor deficits. Cranial nerves are grossly intact. SKIN: No lesions are noted. Assessment and Plan Assessment and Plan IMPRESSION: 1. COPD with acute exacerbation. 2. Probable early pneumonia with pleuritic chest pain. 3. History of chronic pancreatitis. 4. Cardiomyopathy. 5. Degenerative arthritis. 6. Rule out pulmonary emboli. Plan : 1. Continue antibiotics 2. Cont solumedrol 40 mg q12h. 3. Chest X ray in am 4. Nebs qid , duoneb.Add EZ PaP qid. 5. O2 at 2 l. 6. IS at bedside qid. Sarah Sutherland MD January 17, 2017 19:00
[2017-01-17] MEDS: TEMAZEPAM 15 MG CAP PO PRN (21:56)
[2017-01-17] MEDS: ALPRAZolam 1 MG TAB PO PRN (21:56)
--- NOTE | 2017-01-17 23:17 | HHI.FF ---
Face to Face Verification Diagnosis: (1) Chest pain (2) Acute respiratory failure (3) Recurrent falls (4) Pleural effusion (5) COPD (chronic obstructive pulmonary disease) Physical Therapy Order: Evaluate and Treat Home Health Nursing Order: Nursing assessment with vital signs I have seen patient Roberto Erazo on 01/17/17. My clinical findings support the need for the requested home health care services because: Deconditioned w/ increased weakness I certify that my clinical findings support that this patient is homebound because: Hx COPD- exertion dyspnea/weakness Nish Ken MD January 17, 2017 23:17
--- NOTE | 2017-01-17 23:26 | HHI.PR ---
Subjective Remarks Patient seen today around 11:30. still with pleuritic chest pain.Says he is feeling better, but still rather fatigued with ambulation. He does not feel right he can go home today however.. Says he feels like he can go home tomorrow. Objective Vital Signs Date Time Temp Pulse Resp B/P Pulse Ox O2 Delivery O2 Flow Rate FiO2 01/17/17 22:01 98 21 01/17/17 20:00 98.2 69 18 147/73 97 01/17/17 16:00 97.9 65 20 134/68 97 01/17/17 16:00 Nasal Cannula 2.00 01/17/17 12:00 Room Air 01/17/17 11:36 98.2 65 20 127/63 96 01/17/17 11:32 2.00 01/17/17 11:32 97 21 01/17/17 09:00 63 01/17/17 08:33 96 Nasal Cannula 2.00 01/17/17 08:00 98.1 64 20 127/61 96 01/17/17 08:00 Nasal Cannula 1.00 01/17/17 04:00 Nasal Cannula 1.00 01/17/17 04:00 97.9 71 20 112/57 96 01/17/17 00:00 97.5 69 18 117/58 97 01/17/17 00:00 Nasal Cannula 1.00 I/O 01/16/17 01/16/17 01/16/17 01/17/17 01/17/17 01/17/17 07:00 15:00 23:00 07:00 15:00 23:00 Intake Total 240 ml 540 ml 580 ml 240 ml 480 ml Output Total 100 ml Balance 240 ml 540 ml 580 ml 140 ml 480 ml Intake Oral 240 ml 240 ml 480 ml 240 ml 480 ml IV Total 300 ml 100 ml Output Urine Total 100 ml # Voids 3 0 1 4 2 # Bowel Movements 0 0 2 0 Result Diagram: 01/17/17 0608 01/16/17 0842 Objective Remarks GENERAL: sitting up on edge of bed . Appears comfortable. Alert and oriented 3. SKIN: Warm and dry. HEAD: Normocephalic. EYES: No scleral icterus. No injection or drainage. NECK: Supple, trachea midline. No JVD . CARDIOVASCULAR: Regular rate and rhythm without murmurs, gallops, or rubs. RESPIRATORY: breath sounds much improved. No rales today. still splinting, but breathing effort improved. GASTROINTESTINAL: Abdomen soft, non-tender, nondistended. MUSCULOSKELETAL: No cyanosis, or edema. BACK: Nontender without obvious deformity. No CVA tenderness. A/P Assessment and Plan ===== 01/16/17. Oxygenation improved on room air cont abx. -Plan to taper to prednisone tomorrow. -Patient does not feel like he'll pass out, however still fatigued with ambulation. Reassess tomorrow. - //Sepsis. Improving //Possible aspiration pneumonia. //Bilateral pleural effusions -Leukocytosis and tachycardia on admission, aspiration pneumonia. -Patient reports reflux/vomiting/aspiration event suspected the night of presentation. -VQ scan negative for PE -Consolidation on CT -Continue antibiotics, with anaerobic coverage. Oxygen as necessary. -01/14. White count improving. Pulmonology consultation appreciated. //Suspected COPD exacerbation Pulmonology following Continue duo nebs, steroids. Oxygen as necessary. Continue to monitor. //History of recent UTI. Hematuria as well. This appears to have resolved. We 'll continue on antibiotics. -Follow culture ordered. //BPH. Continue tamsulosin //History of hypertension. //Distress CHF //CAD. -EF within normal limits 2014. no Signs of acute fluid overload. -continue aspirin -Blood pressure acceptable. Continue to monitor. Continue amlodipine. //GERD. //History of hiatal hernia. -No nausea. Continue famotidine. -Head of bed at 30. //Pleuritic Chest pain.. Troponins negative 3. VQ scan negative for PE. Most likely secondary to pneumonia, pleural effusion. Continues. Continue to monitor //Prophylaxis. SCDs. Continue Lovenox. Discharge Planning Case management assistance appreciated. Continue treatment for pneumonia possible discharge home with home health in the next 1-2 days Nish Ken MD January 17, 2017 23:26
[2017-01-18] VITALS (9 sets, daily range): BP systolic 116–149; BP diastolic 58–81; PULSE 59–77; RESP 16–20; TEMP 97.3–98.2; O2SAT 94–99
[2017-01-18] MEDS: MORPHINE SULFATE 4 MG/ML INJ IV PUSH PRN ×3 (00:57→06:37)
[2017-01-18] MEDS: metroNIDAZOLE 500 MG INJ 100 ML IV SCH ×3 (00:57→17:31)
[2017-01-18] MEDS: SODIUM CHLORIDE 0.9% FLUSH 10 ML FLUSH IV FLUSH SCH ×2 (09:00→20:01)
[2017-01-18] MEDS ORDERED: predniSONE 50 MG TAB PO SCH (09:00)
[2017-01-18] MEDS: LIPASE/PROTEASE/AMYLASE (24,000/76,000/120,000) CAP PO SCH ×3 (09:14→17:31)
[2017-01-18] MEDS: METOPROLOL SUCCINATE 50 MG EXTENDED RELEASE TAB PO SCH ×2 (09:14→20:00)
[2017-01-18] MEDS: FAMOTIDINE 20 MG TAB PO SCH ×2 (09:15→20:01)
[2017-01-18] MEDS: amLODIPine BESYLATE 5 MG TAB PO SCH (09:15)
[2017-01-18] MEDS: TAMSULOSIN HCL 0.4 MG CAP PO SCH ×2 (09:15→20:01)
[2017-01-18] MEDS: CEFEPIME INJ 1,000 MG in SODIUM CHLORIDE 0.9% INJ 100 ML IV SCH ×2 (09:15→20:01)
--- NOTE | 2017-01-18 11:16 | HHI.PR ---
Subjective Remarks breathing about the same. reports LH , near syncope when standing. has prior history of this but says it is worse. He says he almost passed out during the breathing test. He reports pleuritic right-sided chest pain still severe limiting his ability to breathe deeply. Trying to work with [facility]. She reports that patient has been walking around, has not been reporting lightheadedness or presyncope. Objective Vital Signs Date Time Temp Pulse Resp B/P Pulse Ox O2 Delivery O2 Flow Rate FiO2 01/18/17 09:00 77 01/18/17 08:00 97.7 68 20 116/59 94 01/18/17 04:00 97.3 66 18 118/58 96 01/18/17 00:00 97.4 75 20 130/66 96 01/17/17 22:01 98 21 01/17/17 21:20 Room Air 01/17/17 20:14 80 01/17/17 20:00 98.2 69 18 147/73 97 01/17/17 16:00 97.9 65 20 134/68 97 01/17/17 16:00 Nasal Cannula 2.00 01/17/17 12:00 Room Air 01/17/17 11:36 98.2 65 20 127/63 96 01/17/17 11:32 2.00 01/17/17 11:32 97 21 I/O 01/17/17 01/17/17 01/17/17 01/18/17 01/18/17 01/18/17 07:00 15:00 23:00 07:00 15:00 23:00 Intake Total 580 ml 240 ml 669 ml 246 ml Output Total 100 ml Balance 580 ml 140 ml 669 ml 246 ml Intake Oral 480 ml 240 ml 480 ml 240 ml IV Total 100 ml 189 ml 6 ml Output Urine Total 100 ml # Voids 1 4 2 2 # Bowel Movements 0 2 0 0 Result Diagram: 01/17/17 0608 01/16/17 0842 Objective Remarks GENERAL: sitting up in chair. Appears comfortable. Alert and oriented 3. SKIN: Warm and dry. HEAD: Normocephalic. EYES: No scleral icterus. No injection or drainage. NECK: Supple, trachea midline. No JVD . CARDIOVASCULAR: Regular rate and rhythm without murmurs, gallops, or rubs. RESPIRATORY: breath sounds much improved. No rales today. still splinting, but breathing effort improved. GASTROINTESTINAL: Abdomen soft, non-tender, nondistended. MUSCULOSKELETAL: No cyanosis, or edema. BACK: Nontender without obvious deformity. No CVA tenderness. A/P Assessment and Plan ===== 01/18/17. Breathing improved, still splinting from pleuritic right-sided chest pain Check PSA rule out metastatic prostate cancer as patient has history of prostate cancer Taper prednisone -Recheck ABG. Add lidocaine patch right chest. Presyncope. Patient has history of syncope in the past. Could be secondary to blood pressure medication, tamsulosin . Could also be secondary to splinting, decreased respiratory volume secondary to this. We'll decrease amlodipine dose. Check orthostatics again. Check carotid ultrasound. //Sepsis. Improving //Possible aspiration pneumonia. //Bilateral pleural effusions -Leukocytosis and tachycardia on admission, aspiration pneumonia. -Patient reports reflux/vomiting/aspiration event suspected the night of presentation. -VQ scan negative for PE -Consolidation on CT -Continue antibiotics, with anaerobic coverage. Oxygen as necessary. -01/14. White count improving. Pulmonology consultation appreciated. //Suspected COPD exacerbation Pulmonology following Continue duo nebs, steroids. Oxygen as necessary. Continue to monitor. //History of recent UTI. Hematuria as well. This appears to have resolved. We 'll continue on antibiotics. -Follow culture ordered. //BPH. Continue tamsulosin //History of hypertension. //Distress CHF //CAD. -EF within normal limits 2014. no Signs of acute fluid overload. -continue aspirin -Blood pressure acceptable. Continue to monitor. decr amlodipine due to relative hypotension, presyncope. //Presyncope. Patient has history of syncope in the past. Could be secondary to blood pressure medication, tamsulosin . Could also be secondary to splinting , decreased respiratory volume secondary to this. We'll decrease amlodipine dose. Check orthostatics again. Check carotid ultrasound. //GERD. //History of hiatal hernia. -No nausea. Continue famotidine. -Head of bed at 30. //Pleuritic Chest pain.. Troponins negative 3. VQ scan negative for PE. Most likely secondary to pneumonia, pleural effusion. Continues. Continue to monitor //Prophylaxis. SCDs. Continue Lovenox. Discharge Planning Case management assistance appreciated. Continue treatment for pneumonia -further workup for presyncope possible discharge home with home health in the next 1-2 days Nish Ken MD January 18, 2017 11:16
[2017-01-18] MEDS: LIDOCAINE HCL 5% PATCH T-DERMAL SCH (12:08)
[2017-01-18 12:47] LABS: HEMATOCRIT 37.7 % (39.0-51.0); MEAN CELL VOLUME 86.3 FL (80.0-100.0); MEAN CORPUSCULAR HEMOGLOBIN 27.1 PG (27.0-34.0); MEAN CORPUSCULAR HGB CONC 31.4 % (32.0-36.0); PLATELET COUNT 391 TH/MM3 (150-450); RED BLOOD COUNT 4.37 MIL/MM3 (4.50-5.90); RED CELL DISTRIBUTION WIDTH 19.9 % (11.6-17.2)
[2017-01-18 13:18] LABS: HEMO FLAGS AUTO DIFF
[2017-01-18 13:19] LABS: BICARBONATE 24.6 MEQ/L (21.0-32.0); POTASSIUM 4.4 MEQ/L (3.5-5.1)
[2017-01-18 13:26] LABS: BANDS 2 % (0-6); MYELOCYTES 2 % (0-0); POLYS (SEG NEUTROPHILS) 76 % (16-70); WBC DIFF SAMPLE 100
[2017-01-18 13:27] LABS: PLATELET ESTIMATE SMEAR NORMAL (NORMAL); PLATELET MORPHOLOGY NORMAL (NORMAL); SCAN/DIFF FINAL DIFF MANUAL
[2017-01-18 13:49] LABS: BLOOD GAS BASE EXCESS -0.7 mmol/L (-2-2); BLOOD GAS CARBOXYHEMOGLOBIN 1.2 % (0-4); BLOOD GAS HCO3 23 mmol/L (22-26); BLOOD GAS METHEMOGLOBIN 0.9 % (0-2); BLOOD GAS O2 HGB SATURATION 90 % (90-100); BLOOD GAS OXYGEN CONTENT 14.5 Vol % (12.0-20.0); BLOOD GAS PCO2 34 mmHg (38-42); BLOOD GAS PO2 64 mmHg (61-120); BLOOD GAS TOTAL HGB 11.4 G/DL (12.0-16.0); CRITICAL VALUE NO; DRAW SITE LT RADIAL; FIO2 21 %; NUMBER OF ARTERIAL PUNCTURES 1; STAT NO; TEMP CORR TO 98.6; ULNAR PULSE PRESENT
--- NOTE | 2017-01-18 17:22 | HHI.PR ---
Subjective Remarks C/O pains in chest . CXR is better now.On pain meds. On antibiotics and seems to be improving. No fever.PFT with restriction and Obstruction Objective Vital Signs Date Time Temp Pulse Resp B/P Pulse Ox O2 Delivery O2 Flow Rate FiO2 01/18/17 16:00 97.7 65 20 145/72 97 01/18/17 15:48 98 21 01/18/17 12:00 60 136/71 01/18/17 12:00 63 134/73 01/18/17 12:00 98.2 64 20 142/81 98 01/18/17 12:00 59 134/75 01/18/17 09:00 77 01/18/17 08:00 97.7 68 20 116/59 94 01/18/17 08:00 Room Air 01/18/17 04:00 97.3 66 18 118/58 96 01/18/17 00:00 97.4 75 20 130/66 96 01/17/17 22:01 98 21 01/17/17 21:20 Room Air 01/17/17 20:14 80 01/17/17 20:00 98.2 69 18 147/73 97 I/O 01/17/17 01/17/17 01/17/17 01/18/17 01/18/17 01/18/17 07:00 15:00 23:00 07:00 15:00 23:00 Intake Total 580 ml 240 ml 669 ml 246 ml 0 ml Output Total 100 ml Balance 580 ml 140 ml 669 ml 246 ml 0 ml Intake Oral 480 ml 240 ml 480 ml 240 ml 0 ml IV Total 100 ml 189 ml 6 ml Output Urine Total 100 ml # Voids 1 4 2 2 4 # Bowel Movements 0 2 0 0 2 Result Diagram: 01/18/17 1218 01/18/17 1218 Objective Remarks GENERAL: This is an averagely built middle-aged -[place] male who is alert, pale . HEAD, EYES, EARS, NOSE, THROAT: Head normocephalic. The pupils are reactive and equal. Tongue is moist. Throat is clear. NECK: The neck is supple. No bruits. No thyroid enlargement. CHEST: Decreased excursions with occasional crackles at the lung bases. There are few wheezes anteriorly. Prolonged expirations. HEART: Heart sounds are irregular. S1-S2. No murmur. No S3. ABDOMEN: The abdomen is soft and protuberant with no tenderness in the abdomen. Bowel sounds are active. The liver edge is just felt below the costal margin. EXTREMITIES: Minimal edema. NEUROLOGIC: Reflexes are 1+ with no gross motor deficits. Cranial nerves are grossly intact. SKIN: No lesions are noted. Assessment and Plan Assessment and Plan IMPRESSION: 1. COPD with acute exacerbation. 2. Probable early pneumonia with pleuritic chest pain. 3. History of chronic pancreatitis. 4. Cardiomyopathy. 5. Degenerative arthritis. 6. Rule out pulmonary emboli. Plan : 1. Continue antibiotics and switch to PO in am 2. D/C solumedrol 3. Add prednisone 30 mg daily and taper 4. Nebs qid , duoneb.EZ PaP qid. 5. O2 at 2 l.PRN 6. IS at bedside qid. Sarah Sutherland MD January 18, 2017 17:22
[2017-01-18] MEDS: ENOXAPARIN SODIUM 40 MG/0.4 ML SYRINGE SQ SCH (17:31)
--- NOTE | 2017-01-18 17:37 | RADRPT ---
EXAM DATE/TIME: 01/18/2017 12:47 [facility] COMPARISON: No previous studies available for comparison. INDICATIONS : Syncope. MEDICAL HISTORY : Congestive heart failure. Hypertension. Gastroesophageal reflux disease. CVA. M yocardial infarction. Sleep apnea. Prostate cancer. Osteoarthritis. SURGICAL HISTORY : Cholecystectomy. Cardiac catheter. Lobectomy. Pancreatitis. Cholelithiasis . Hiatal hernia repair. Left hip. Left rotator cuff. Pelvic surgery. ENCOUNTER: Initial ACUITY: 2 days PAIN SCORE: 8/10 LOCATION: Bilateral neck PEAK SYSTOLIC VELOCITIES (cm/sec): ICA/CCA RATIO: Right: 0.8 Left: 0.5 ICA: Right: 68.7 Left: 70.9 CCA: Right: 82.5 Left: 139.6 ECA: Right: 67.2 Left: 60.9 VERTEBRAL: Right: 50.3 antegrade Left: 59.6 antegrade Elevated flow velocities and ICA/CCA ratios have been found to correlate with increased degrees of vessel stenosis, calculated as percentage of diameter relative to a normal segment of distal ICA/CCA FINDINGS: RIGHT CAROTID: There is no evidence for a hemodynamically significant carotid stenosis. Minimal int imal hyperplasia is present with scattered calcific plaque. LEFT CAROTID: There is no evidence for a hemodynamically significant carotid stenosis. Minimal inti mal hyperplasia is present with scattered calcific plaque. VERTEBRAL ARTERIES: Flow is antegrade in both vertebral arteries. MISCELLANEOUS: There are no ancillary masses or adenopathy. CONCLUSION: Negative examination for a hemodynamically significant carotid stenosis. Valentín Chou MD FACR Board Certified Radiologist. This report was verified electronically.
[2017-01-18] MEDS: TEMAZEPAM 15 MG CAP PO PRN (20:00)
[2017-01-18] MEDS: ALPRAZolam 1 MG TAB PO PRN (20:01)
[2017-01-19 00:03] VITALS: BP 110/56; PULSE 71; RESP 16; TEMP 97.3; O2SAT 94
[2017-01-19] MEDS: metroNIDAZOLE 500 MG INJ 100 ML IV SCH ×2 (02:45→07:55)
[2017-01-19 05:27] VITALS: BP 118/60; PULSE 59; RESP 16; TEMP 97.5; O2SAT 96
[2017-01-19] MEDS: LIPASE/PROTEASE/AMYLASE (24,000/76,000/120,000) CAP PO SCH (07:58)
[2017-01-19] MEDS: METOPROLOL SUCCINATE 50 MG EXTENDED RELEASE TAB PO SCH (07:58)
[2017-01-19] MEDS: TAMSULOSIN HCL 0.4 MG CAP PO SCH (07:59)
[2017-01-19] MEDS: ASPIRIN 81 MG CHEW TAB CHEW SCH (07:59)
[2017-01-19] MEDS: CEFEPIME INJ 1,000 MG in SODIUM CHLORIDE 0.9% INJ 100 ML IV SCH (07:59)
[2017-01-19 08:00] VITALS: BP 119/81; PULSE 60; RESP 20; TEMP 97.7; O2SAT 97
[2017-01-19] MEDS: SODIUM CHLORIDE 0.9% FLUSH 10 ML FLUSH IV FLUSH SCH (08:00)
[2017-01-19] MEDS: LIDOCAINE HCL 5% PATCH T-DERMAL SCH (08:08)
[2017-01-19] MEDS: FAMOTIDINE 20 MG TAB PO SCH (08:08)
[2017-01-19] MEDS ORDERED: amLODIPine BESYLATE 5 MG TAB PO SCH (09:00)
[2017-01-19] MEDS ORDERED: predniSONE 10 MG TAB PO SCH (09:00)
[2017-01-19 09:43] VITALS: O2SAT 98
[2017-01-19] MEDS ORDERED: TEMA30CA PO (10:40)
[2017-01-19] MEDS ORDERED: PRED10 PO (10:40)
[2017-01-19] MEDS ORDERED: HYDR-3535 PO (10:40)
[2017-01-19] MEDS ORDERED: METO50TA11 PO (10:40)
[2017-01-19] MEDS ORDERED: TAMS5CAP PO (10:40)
[2017-01-19] MEDS ORDERED: FAMO20TA2 PO (10:40)
[2017-01-19] MEDS ORDERED: MILKSUS PO (10:40)
[2017-01-19] MEDS ORDERED: AMLO5TAB2 PO (10:40)
[2017-01-19] MEDS ORDERED: XANA1TAB2 PO (10:40)
[2017-01-19] MEDS ORDERED: PANC1CAP9 PO (10:40)
[2017-01-19] MEDS ORDERED: AMOX875T2 PO (10:40)
[2017-01-19] MEDS ORDERED: SYMB160A INH (10:40)
[2017-01-19] MEDS ORDERED: ALBU6.7H INH (10:40)
[2017-01-19] MEDS ORDERED: ASPI81CH7 CHEW (10:40)
[2017-01-19] MEDS ORDERED: BENZ100 PO (10:41)
--- NOTE | 2017-01-19 10:52 | HHI.PR ---
Subjective Remarks Patient walking around this morning. Says he is feeling better. Lightheadedness much improved. Still with right chest pleuritic pain, very slight improvement. He continues to work with [facility], agrees to take this home and use it. Objective Vital Signs Date Time Temp Pulse Resp B/P Pulse Ox O2 Delivery O2 Flow Rate FiO2 01/19/17 09:43 98 21 01/19/17 08:00 Room Air 01/19/17 08:00 97.7 60 20 119/81 97 01/19/17 05:27 97.5 59 16 118/60 96 01/19/17 05:15 Room Air 01/19/17 01:18 Room Air 01/19/17 00:03 97.3 71 16 110/56 94 01/18/17 21:35 Room Air 01/18/17 20:15 97.8 64 16 149/75 99 01/18/17 20:00 65 01/18/17 16:00 Room Air 01/18/17 16:00 97.7 65 20 145/72 97 01/18/17 15:48 98 21 01/18/17 12:00 60 136/71 01/18/17 12:00 Room Air 01/18/17 12:00 63 134/73 01/18/17 12:00 98.2 64 20 142/81 98 01/18/17 12:00 59 134/75 I/O 01/18/17 01/18/17 01/18/17 01/19/17 01/19/17 01/19/17 07:00 15:00 23:00 07:00 15:00 23:00 Intake Total 246 ml 0 ml 578 ml 588 ml Output Total 200 ml 350 ml Balance 246 ml 0 ml 378 ml 238 ml Intake Oral 240 ml 0 ml 360 ml 588 ml IV Total 6 ml 218 ml Output Urine Total 200 ml 350 ml # Voids 2 4 4 # Bowel Movements 0 2 2 0 Result Diagram: 01/18/17 1218 01/18/17 1218 Imaging Last Impressions Carotid Artery Ultrasound 01/18/17 0000 Signed Impressions: Service Date/Time: Wednesday, January 18, 2017 12:47 - CONCLUSION: Negative examination for a hemodynamically significant carotid stenosis. Valentín Chou MD Chest X-Ray 01/16/17 0600 Signed Impressions: Service Date/Time: Monday, January 16, 2017 04:22 - CONCLUSION: Mild bibasilar parenchymal opacities. Peter Bruno MD Chest CT 01/13/17 1859 Signed Impressions: Service Date/Time: Friday, January 13, 2017 19:48 - CONCLUSION: 1. Bibasilar areas of consolidation with tiny bilateral pleural effusions. This is new from the prior exam. This could represent infectious infiltrates. 2. Stable small pericardial effusion. Polo Hogan Jr., MD Lung Scan-[facility] Nuclear Medicine 01/13/17 0000 Signed Impressions: Service Date/Time: Friday, January 13, 2017 10:07 - CONCLUSION: Normal examination. Akira Mari MD Objective Remarks GENERAL: Being in room. Appears comfortable. Breathing comfortably today. Alert and oriented 3. SKIN: Warm and dry. HEAD: Normocephalic. EYES: No scleral icterus. No injection or drainage. NECK: Supple, trachea midline. No JVD . CARDIOVASCULAR: Regular rate and rhythm without murmurs, gallops, or rubs. RESPIRATORY: Breath sounds equal bilaterally. No rales. still splinting, but breathing comfortably today. GASTROINTESTINAL: Abdomen soft, non-tender, nondistended. MUSCULOSKELETAL: No cyanosis, or edema. BACK: Nontender without obvious deformity. No CVA tenderness. A/P Assessment and Plan ===== 01/19/17. // Breathing much improved. Repeat ABG reviewed. Improved.. Continue antibiotics to complete treatment course. Albuterol inhaler at home, with twice daily Symbicort. Prednisone taper. Follow up with Dr. Zhu. Past history prostate cancer. Due to lung issues, pleuritic right-sided chest pain, PSA checked and acceptable. Patient will follow-up with urology as outpatient. //Pleuritic chest pain. Lidocaine patch did not work. Improving. Continue [facility] spirometry. Continue narcotics. //Presyncope, with history of syncope and lightheadedness in the past. Orthostatic blood pressures acceptable. Carotid ultrasound negative for significant stenosis. Seems to have improved with decreased amlodipine dose from 5 mg twice daily. Received 2.5 this morning. We'll send home on 5 mg daily. No need to continue HCTZ. Patient is to continue taking his medications are stressed compliance. //Sepsis. Improving //Possible aspiration pneumonia. //Bilateral pleural effusions -Leukocytosis and tachycardia on admission, aspiration pneumonia. -Patient reports reflux/vomiting/aspiration event suspected the night of presentation. -VQ scan negative for PE -Consolidation on CT -Continue antibiotics, with anaerobic coverage. Oxygen as necessary. -01/14. White count improving. Pulmonology consultation appreciated. -01/19. Discharge home //Suspected COPD exacerbation Pulmonology following Continue duo nebs, steroids. Oxygen as necessary. Continue to monitor. //History of recent UTI. Hematuria as well. This appears to have resolved. We 'll continue on antibiotics. -Follow culture ordered. //BPH. Continue tamsulosin //History of hypertension. //Distress CHF //CAD. -EF within normal limits 2014. no Signs of acute fluid overload. -continue aspirin -Blood pressure acceptable. Continue to monitor. decr amlodipine due to relative hypotension, presyncope. //Presyncope. Patient has history of syncope in the past. Could be secondary to blood pressure medication, tamsulosin . Could also be secondary to splinting , decreased respiratory volume secondary to this. We'll decrease amlodipine dose. Check orthostatics again. Check carotid ultrasound. //GERD. //History of hiatal hernia. -No nausea. Continue famotidine. -Head of bed at 30. //Pleuritic Chest pain.. Troponins negative 3. VQ scan negative for PE. Most likely secondary to pneumonia, pleural effusion. Continues. Continue to monitor //Prophylaxis. SCDs. Continue Lovenox. Discharge Planning Case management assistance appreciated. Continue treatment for pneumonia Discharge home with home health. Patient does not wish to go back to Dr. Pérez. Case management to set up appointment with primary care. [facility]. Nish Ken MD Jan 19, 2017 10:52
--- NOTE | 2017-01-19 10:56 | HHI.DS ---
Discharge Summary Admission Date January 13, 2017 at 07:25 Discharge Date: Jan 19, 2017 Admitting Diagnosis Hypoxic respiratory failure (1) COPD (chronic obstructive pulmonary disease) ICD Code: J44.9 (2) Sepsis ICD Code: A41.9 (3) Near syncope ICD Code: R55 (4) Chest pain ICD Code: R07.9 Procedures Patient underwent PFTs. Please see report No invasive procedures. Brief History - From Admission Patient seen 01/13 around 3 PM. 61-year-old male with a history of anemia, anxiety, COPD, chronic pancreatitis, GERD, hypertension, prostate cancer status post radiation 2003. Patient reports that sharp , nonradiating left-sided pleuritic chest pain awoke him from sleep around 2:30 AM. He is not quite sure what happened last night, but says he awoke around 2:30 AM, and appears from his clothing when he woke up that he may have vomited on himself. He does report a recent UTI with hematuria , no dysuria which appears to have resolved on Macrobid. He reports previously feeling at baseline yesterday. Patient reports fatigue at baseline with chronic musculoskeletal pain.. CBC/BMP: 01/18/17 1218 01/18/17 1218 Significant Findings Laboratory Tests Test 01/17/17 01/18/17 01/18/17 06:08 12:18 13:38 White Blood Count 11.7 TH/MM3 15.0 TH/MM3 (4.0-11.0) (4.0-11.0) Red Blood Count 3.78 MIL/MM3 4.37 MIL/MM3 (4.50-5.90) (4.50-5.90) Hemoglobin 10.1 GM/DL 11.8 GM/DL (13.0-17.0) (13.0-17.0) Hematocrit 32.9 % 37.7 % (39.0-51.0) (39.0-51.0) Mean Corpuscular Hemoglobin 26.8 PG (27.0-34.0) Mean Corpuscular Hemoglobin 30.7 % 31.4 % Concent (32.0-36.0) (32.0-36.0) Red Cell Distribution Width 19.5 % 19.9 % (11.6-17.2) (11.6-17.2) Neutrophils (%) (Auto) 78.5 % (16.0-70.0) Monocytes (%) (Auto) 10.5 % (0.0-8.0) Neutrophils # (Auto) 9.2 TH/MM3 (1.8-7.7) Monocytes # (Auto) 1.2 TH/MM3 (0-0.9) Neutrophils % (Manual) 75 % (16-70) 76 % (16-70) Monocytes % 9 % (0-8) Neutrophils # (Manual) 9.4 TH/MM3 12.0 TH/MM3 (1.8-7.7) (1.8-7.7) Myelocytes 1 % (0-0) 2 % (0-0) Ovalocytes 1+ (NORMAL) Blood Urea Nitrogen 22 MG/DL (7-18) Arterial Blood pH 7.44 (7.380-7.420) Arterial Blood Partial 34 mmHg (38-42) Pressure CO2 Blood Gas Hemoglobin 11.4 G/DL (12.0-16.0) Imaging Last Impressions Carotid Artery Ultrasound 01/18/17 0000 Signed Impressions: Service Date/Time: Wednesday, January 18, 2017 12:47 - CONCLUSION: Negative examination for a hemodynamically significant carotid stenosis. Valentín Chou MD Chest X-Ray 01/16/17 0600 Signed Impressions: Service Date/Time: Monday, January 16, 2017 04:22 - CONCLUSION: Mild bibasilar parenchymal opacities. Peter Bruno MD Chest CT 01/13/17 1859 Signed Impressions: Service Date/Time: Friday, January 13, 2017 19:48 - CONCLUSION: 1. Bibasilar areas of consolidation with tiny bilateral pleural effusions. This is new from the prior exam. This could represent infectious infiltrates. 2. Stable small pericardial effusion. Polo Hogan Jr., MD Lung Scan-V Nuclear Medicine 01/13/17 0000 Signed Impressions: Service Date/Time: Friday, January 13, 2017 10:07 - CONCLUSION: Normal examination. Akira Mari MD Hospital Course CT on admission as above with bibasilar consolidation, tiny pleural effusions, new from prior exam. D-dimer 0.6. VQ scan low probability for PE. Hypoxemia with PO2 in the 50s on room air on admission. Improved with steroids, nebulizations, antibiotics. Patient had lightheadedness, presyncopal symptoms. Orthostatic vitals negative, ultrasound carotids negative for significant stenosis. Decreased blood pressure meds, with improvement. Chest x-ray improved. Pulmonology followed during admission. Patient will be sent home with present taper, antibiotics to complete treatment course. Follow-up with primary care and pulmonology. For problem-based summary for most recent progress note, please see below. ===== 01/19/17. // Breathing much improved. Repeat ABG reviewed. Improved.. Continue antibiotics to complete treatment course. Albuterol inhaler at home, with twice daily Symbicort. Prednisone taper. Follow up with Dr. Zhu. Past history prostate cancer. Due to lung issues, pleuritic right-sided chest pain, PSA checked and acceptable. Patient will follow-up with urology as outpatient. //Pleuritic chest pain. Lidocaine patch did not work. Improving. Continue incentive spirometry. Continue narcotics. //Presyncope, with history of syncope and lightheadedness in the past. Orthostatic blood pressures acceptable. Seems to have improved with decreased amlodipine dose from 5 mg twice daily. Received 2.5 this morning. We'll send home on 5 mg daily. No need to continue HCTZ. Patient is to continue taking his medications are stressed compliance. //Sepsis. Improving //Possible aspiration pneumonia. //Bilateral pleural effusions -Leukocytosis and tachycardia on admission, aspiration pneumonia. -Patient reports reflux/vomiting/aspiration event suspected the night of presentation. -VQ scan negative for PE -Consolidation on CT -Continue antibiotics, with anaerobic coverage. Oxygen as necessary. -01/14. White count improving. Pulmonology consultation appreciated. -01/19. Discharge home //Suspected COPD exacerbation Pulmonology following Continue duo nebs, steroids. Oxygen as necessary. Continue to monitor. //History of recent UTI. Hematuria as well. This appears to have resolved. We 'll continue on antibiotics. -Follow culture ordered. //BPH. Continue tamsulosin //History of hypertension. //Distress CHF //CAD. -EF within normal limits 2014. no Signs of acute fluid overload. -continue aspirin -Blood pressure acceptable. Continue to monitor. decr amlodipine due to relative hypotension, presyncope. //Presyncope. Patient has history of syncope in the past. Could be secondary to blood pressure medication, tamsulosin . Could also be secondary to splinting , decreased respiratory volume secondary to this. We'll decrease amlodipine dose. Check orthostatics again. Check carotid ultrasound. //GERD. //History of hiatal hernia. -No nausea. Continue famotidine. -Head of bed at 30. //Pleuritic Chest pain.. Troponins negative 3. VQ scan negative for PE. Most likely secondary to pneumonia, pleural effusion. Continues. Continue to monitor //Prophylaxis. SCDs. Continue Lovenox. Discharge Planning Case management assistance appreciated. Continue treatment for pneumonia -further workup for presyncope possible discharge home with home health in the next 1-2 days Pt Condition on Discharge: Good Discharge Disposition: Disch w/ Home Health Serv Discharge Time: > 30 minutes Discharge Instructions DIET: Follow Instructions for: Heart Healthy Diet Activities you can perform: Regular-No Restrictions Follow up Referrals: PCP Follow-up - 1 Week @ [facility] - 2 Weeks with Sarah Sutherland MD New Medications: Amoxicillin-Clavulanate (Amoxicillin-Clavulanate) 875-125 mg Tab 875 MG PO BID not for use in CrCl <30 mL/minute Infection #18 Ref 0 TAB Budesonide-Formoterol Inh (Symbicort Inh) 160-4.5 Mcg/Act Aero 1 PUFF INH Q12HR #1 Ref 0 INHALER Prednisone (Prednisone) 10 Mg Tab 10 MG PO DAILY Take 30mg daily for 3 days; 20mg daily for 3 days; 10mg daily for 3 days, then stop. COPD #18 Ref 0 TAB Benzonatate (Tessalon Perles) 100 Mg Cap 100 MG PO TID PRN COUGH #27 CAP Changed Medications: Amlodipine (Amlodipine) 5 Mg Tab 5 MG PO DAILY Blood Pressure Management #30 Ref 0 TAB (Changed from: BID) Continued Medications: Albuterol 6.7 GM Inh (Proventil Hfa 6.7 GM Inh) 90 Mcg/Act Aer 2 PUFF INH Q6H PRN SHORTNESS OF BREATH #1 Ref 0 INHALER (This prescription has been renewed) Alprazolam (Xanax) 1 Mg Tab 1 MG PO BID PRN ANXIETY #14 Ref 0 TAB (This prescription has been renewed) Aspirin (Aspirin Children's) 81 Mg Chew 81 MG CHEW EVERY OTHER DAY heart #30 Ref 0 TAB (This prescription has been renewed) Famotidine (Famotidine) 20 Mg Tab 20 MG PO BID Reflux #60 Ref 0 TAB (This prescription has been renewed) Hydrocodone-Acetaminophen (Lortab) 10-325 Mg Tab 1 TAB PO Q4H do not take this medicine if you will drive a car or use a machine , only use it when resting at home PRN PAIN #42 Ref 0 TAB (This prescription has been renewed) Magnesium Hydroxide Liq (Milk of Magnesia Liq) 400 Mg/5 Ml Susp 30 ML PO BID PRN INDIGESTION OR UPSET STOMACH #1 Ref 0 BOTTLE (This prescription has been renewed) Metoprolol Succinate ER 24 HR (Metoprolol Succinate ER 24 HR) 50 Mg Tab 50 MG PO BID Blood Pressure Management #30 Ref 0 TAB (This prescription has been renewed) Pancrelipase (Zenpep) 40,000-136,000-218,000 Units Cap 1 CAP PO TIDPC Digestive Aid #90 Ref 0 CAP (This prescription has been renewed) Promethazine (Promethazine) 12.5 Mg Tab 12.5 MG PO Q6H PRN NAUSEA OR VOMITING Ref 0 TAB Tamsulosin (Flomax) 0.4 Mg Cap 0.4 MG PO BID Manage Prostate Problems #30 Ref 0 CAP (This prescription has been renewed) Temazepam (Temazepam) 30 Mg Cap 30 MG PO HS PRN INSOMNIA #7 Ref 0 CAP (This prescription has been renewed) Discontinued Medications: Hydrochlorothiazide (Hydrochlorothiazide) 25 Mg Tab 25 MG PO EVERY OTHER DAY #30 Ref 0 TAB Nitrofurantoin Macrocrystal (Macrodantin) 100 Mg Cap 100 MG PO QID Infection #56 Ref 0 CAP Potassium Chloride ER (Potassium Chloride ER) 20 Meq Tab 20 MEQ PO DAILY Electrolyte Replacement #30 Ref 0 TAB Nish Ken MD Jan 19, 2017 10:56
--- NOTE | 2017-01-25 11:03 | RSPPFT ---
DATE OF PROCEDURE: 01/18/17 COMMENTS: Spirometry demonstrates an FEV1 of 1.4 at 48% of predicted, FVC of 2.3 at 61%, FEF 25-75 at 44%. Post-bronchodilator study demonstrated significant improvements in the FVC and FEV1. The lung volumes were not completed. Flow volume loops are suggestive of an obstructive defect. IMPRESSION: 1. Severe obstructive disease. 2. Significant response to use of bronchodilator indicating some reversibility.
== END 2017-01-19 11:48 | disposition home health service (06) | DRG 871 ==
LOC: NEPE 04:25 → NEDA 06:40 → OBSVTOIN 07:25 → N04A 08:29
PROVIDERS: ADMIT Internal Medicine; ATTEND Internal Medicine
DX: A41.9 Sepsis, unspecified organism (principal); J96.01 Acute respiratory failure with hypoxia; J69.0 Pneumonitis due to inhalation of food and vomit; I50.9 Heart failure, unspecified; I42.9 Cardiomyopathy, unspecified; I11.0 Hypertensive heart disease with heart failure; R55 Syncope and collapse; I48.91 Unspecified atrial fibrillation; I69.351 Hemiplegia and hemiparesis following cerebral infarction affecting right dominant side; J44.1 Chronic obstructive pulmonary disease with (acute) exacerbation; Z85.46 Personal history of malignant neoplasm of prostate; Z91.041 Radiographic dye allergy status; Z79.82 Long term (current) use of aspirin; Z96.642 Presence of left artificial hip joint; Z92.3 Personal history of irradiation; K21.9 Gastro-esophageal reflux disease without esophagitis; Z79.01 Long term (current) use of anticoagulants; M19.90 Unspecified osteoarthritis, unspecified site; I25.2 Old myocardial infarction; I25.10 Atherosclerotic heart disease of native coronary artery without angina pectoris; F17.210 Nicotine dependence, cigarettes, uncomplicated; F41.9 Anxiety disorder, unspecified; G47.30 Sleep apnea, unspecified; G89.29 Other chronic pain; M79.1 Myalgia; N40.0 Benign prostatic hyperplasia without lower urinary tract symptoms; Z87.01 Personal history of pneumonia (recurrent)
CPT/HCPCS: 36600; 71010; 71250; 76937; 78582; 80048; 80069; 81001; 82550; 82805; 83036; 83605; 83735; 83880; 84484; 85007; 85025; 85027; 85379; 85610; 85730; 87040; 93005; 93880; 94060; 94150; 94620; 94640; 94664; 94667; 96374; A9540; A9567; G0103; J0692; J0696; J1650; J2270; J2920; J7030; J7512

== ENCOUNTER 2017-01-28 18:41 | Emergency (ER) | payer MEDICAID ==
[2017-01-28] VITALS (7 sets, daily range): BP systolic 114–122; BP diastolic 58–65; PULSE 77–94; RESP 16–20; TEMP 98.6–98.7; O2SAT 95–98
[~2017-01-28 18:41] MED LIST changes: +AMOX875T2 PO; +BENZ100 PO; -FAMO1TAB37 PO; +FAMO20TA2 PO; -HYDR25TA5 PO; -MACR100C3 PO; -PANT40TA3 PO; -POTA-163 PO; +PRED10 PO; +PROM12.54 PO; -PROM25TA5 PO; +SYMB160A INH
[2017-01-28] MEDS ORDERED: SODIUM CHLORIDE 0.9% FLUSH 10 ML FLUSH IV FLUSH PRN (19:15)
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
[2017-01-28 19:44] LABS: AUTOMATED NEUTROPHIL # 4.4 TH/MM3 (1.8-7.7); BASOPHIL % 0.2 % (0.0-2.0); EOSINOPHIL # 0.4 TH/MM3 (0-0.4); EOSINOPHIL % 5.7 % (0.0-4.0); HEMATOCRIT 37.6 % (39.0-51.0); HEMO FLAGS DIFF FINAL; LYMPH % 16.8 % (9.0-44.0); LYMPHOCYTE # 1.1 TH/MM3 (1.0-4.8); MEAN CELL VOLUME 85.7 FL (80.0-100.0); MEAN CORPUSCULAR HGB CONC 32.6 % (32.0-36.0); MONO % 10.9 % (0.0-8.0); NEUT % 66.4 % (16.0-70.0); PLATELET COUNT 311 TH/MM3 (150-450); RED BLOOD COUNT 4.38 MIL/MM3 (4.50-5.90); RED CELL DISTRIBUTION WIDTH 19.7 % (11.6-17.2); WHITE BLOOD COUNT 6.6 TH/MM3 (4.0-11.0)
[2017-01-28 19:56] LABS: APTT (PATIENT) 28.9 SEC (24.3-30.1); PROTHROMBIN TIME - PATIENT 10.6 SEC (9.8-11.6)
[2017-01-28 19:59] LABS: BLOOD, URINE NEG (NEG); COMMENT (UR) CULT NOT INDICATED; CULTURE IF INDICATED CULT NOT INDICATED; GLUCOSE,URINE NEG (NEG); KETONE, URINE NEG (NEG); MUCUS URINE FEW /lpf (OCC); NITRITE,URINE NEG (NEG); SQUAMOUS EPITHELIAL CELL URINE <1 /hpf (0-5); URINE COLOR YELLOW (YELLW/STRAW)
[2017-01-28 20:22] LABS: ANION GAP 13 MEQ/L (5-15); BICARBONATE 22.3 MEQ/L (21.0-32.0); BLOOD UREA NITROGEN 22 MG/DL (7-18); CHLORIDE 100 MEQ/L (98-107); POTASSIUM 3.9 MEQ/L (3.5-5.1); SODIUM (NA) 135 MEQ/L (136-145)
[2017-01-28 20:23] LABS: ALT (GPT) 18 U/L (12-78); AST (GOT) 17 U/L (15-37); GLOMERULAR FILTRATION RATE 95 ML/MIN (>89)
[2017-01-28 20:26] LABS: ALKALINE PHOSPHATASE 100 U/L (45-117); TOTAL BILIRUBIN ADULT 0.4 MG/DL (0.2-1.0)
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
[2017-01-28] MEDS ORDERED: PERM5CRE11 TOPICAL (22:02)
--- NOTE | 2017-01-29 09:36 | EKG ---
Date Performed: 01/28/2017 Time Performed: 20:38:56 PTAGE: 61 years EKG: Sinus rhythm NONSPECIFIC T-WAVE ABNORMALITY BORDERLINE ECG NO PREVIOUS TRACING DOCTOR: Les Brizuela Interpretating Date/Time 01/29/2017 09:32:09
== END 2017-01-28 22:15 | disposition home or self-care (01) ==
LOC: NEPE 18:41
DX: R10.9 Unspecified abdominal pain (principal); R21 Rash and other nonspecific skin eruption; I10 Essential (primary) hypertension; I50.9 Heart failure, unspecified; R94.31 Abnormal electrocardiogram [ECG] [EKG]; Z79.01 Long term (current) use of anticoagulants; D64.9 Anemia, unspecified
CPT/HCPCS: 71020; 80053; 81001; 83690; 84484; 85025; 85610; 85730; 93005; 99285

== ENCOUNTER 2017-01-30 08:31 | Emergency (ER) | payer MEDICAID ==
[~2017-01-30] VITALS: Ht 177.8 cm; Wt 72.0 kg
[~2017-01-30 08:31] MED LIST changes: +PERM5CRE11 TOPICAL
[2017-01-30 08:33] VITALS: BP 145/70; PULSE 86; RESP 20; TEMP 98.4; O2SAT 100
[2017-01-30] MEDS ORDERED: SODIUM CHLOR 0.9% 1000 ML INJ 1,000 ML IV SCH (09:19)
--- NOTE | 2017-01-30 09:28 | PD ---
HPI Chief Complaint: Chest Pain Time Seen by Provider: 09:10 Travel History International Travel<30 days: No Contact w/Intl Traveler<30days: No Traveled to known affect area: No History of Present Illness HPI This is a 61-year-old male with a history of pneumonia, GI bleed, previous C. difficile, who presents today with complaints of weakness and dizziness. Patient also reports watery black stool. Patient's concern that he may have C. difficile again. He states that he is on Augmentin for his pneumonia and shortly there are noted the black stool and watery diarrhea. The patient reports positional dizziness. He also reports shortness of breath. He denies any left sided chest pain, chest pressure. He does report pleuritic pain in his right lung where he had the pneumonia. Patient also reports decreased urine output. He reports that he feels very "bad". PFSH Past Medical History Hx Anticoagulant Therapy: Yes Anemia: Yes Arthritis: Yes Asthma: No Blood Disorders: No Anxiety: Yes Depression: No Heart Rhythm Problems: Yes (PATIENT STATES "HEART OCCASIONALLY BEATS OUT OF RHYTHM" [place]) Cancer: Yes (PROSTATE CA) Cardiac Catheterization: Yes (2008) Cardiovascular Problems: Yes (CHF, [place]) High Cholesterol: No Chest Pain: Yes Congestive Heart Failure: No COPD: No Cerebrovascular Accident: Yes Coronary Artery Disease: Yes Diabetes: No Diminished Hearing: No Endocrine: No Gastrointestinal Disorders: Yes (GI Bleed) GERD: Yes Genitourinary: Yes (RETENTION FROM PROSTATE ENLARGEMENT) Headaches: Yes Hiatal Hernia: Yes Hypertension: Yes 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") Implanted Vascular Access Dvce: Yes Musculoskeletal: No Neurologic: Yes (CVA, TIA) Psychiatric: No Reproductive: No Respiratory: Yes Immunizations Current: Yes Myocardial Infarction: Yes Pancreatitis: Yes Pneumonia: Yes Radiation Therapy: Yes Sleep Apnea: Yes Thyroid Disease: No Ulcer: Yes PNEUMOCCOCAL Vaccine (Year): 1 Past Surgical History Abdominal Surgery: Yes Body Medical Devices: TITANIUM MIKE IN LEFT HIP, BULLET IN RIGHT SHOULDER Cardiac Surgery: Yes Cholecystectomy: Yes Joint Replacement: Yes (L hip, L rotator cuff) Thoracic Surgery: Yes Other Surgery: Yes (pelvic surgery , lung surgery d/t viral pneumonia) Social History Alcohol Use: No Tobacco Use: No Substance Use: No Allergies-Medications (Allergen,Severity, Reaction): Coded Allergies: Cardura (Verified Allergy, Severe, SOB,CHEST PAIN, 01/30/17) Cipro (Verified Allergy, Severe, RASH, SWOLLEN FACE, 01/30/17) Codeine (Verified Allergy, Severe, sob, 01/30/17) Contrast Media (Verified Allergy, Severe, BLISTERS AND EDEMA AT SITE, 01/30) Imodium (Verified Allergy, Severe, rash, 01/30/17) BROKE OUT IN RASH, AND SWELLING AROUND NECK Nonsteroidal Anti-Inflammatory Agts (Verified Allergy, Severe, 01/30/17) Spironolactone (Verified Allergy, Severe, Bleeding, 01/30/17) Fentanyl (Verified Allergy, Intermediate, rash, 01/30/17) Corticosteroids (Verified Adverse Reaction, Severe, HEART MURMUR, 01/30/17) MRI PRECAUTION (Verified Adverse Reaction, Severe, SHRAPNEL IN C-SPINE per Dr. Smart 10/26/04, 01/30/17) Uncoded Allergies: FENTYNAL (Allergy, Severe, RASH AND BLISTERS, 12/27/16) PER PATIENT Reported Meds & Prescriptions Reported Meds & Active Scripts Active Elimite Topical (Permethrin) 5% Cream 1 Applic TOPICAL ONCE Tessalon Perles (Benzonatate) 100 Mg Cap 100 Mg PO TID PRN Amoxicillin-Clavulanate 875-125 mg Tab 875 Mg PO BID not for use in CrCl <30 mL/minute Symbicort Inh (Budesonide/Formoterol Fumarate) 160-4.5 Mcg/Act Aero 1 Puff INH Q12HR Prednisone 10 Mg Tab 10 Mg PO DAILY Take 30mg daily for 3 days; 20mg daily for 3 days; 10mg daily for 3 days, then stop. Famotidine 20 Mg Tab 20 Mg PO BID Lortab (Hydrocodone-Acetaminophen) 10-325 Mg Tab 1 Tab PO Q4H PRN do not take this medicine if you will drive a car or use a machine, only use it when resting at home Milk of Magnesia Liq (Magnesium Hydroxide) 400 Mg/5 Ml Susp 30 Ml PO BID PRN Xanax (Alprazolam) 1 Mg Tab 1 Mg PO BID PRN Aspirin Children's (Aspirin) 81 Mg Chew 81 Mg CHEW EVERY OTHER DAY Temazepam 30 Mg Cap 30 Mg PO HS PRN Zenpep (Pancrelipase) 40,000-136,000-218,000 Units Cap 1 Cap PO TIDPC Flomax (Tamsulosin HCl) 0.4 Mg Cap 0.4 Mg PO BID Metoprolol Succinate ER 24 HR (Metoprolol Succinate) 50 Mg Tab 50 Mg PO BID Amlodipine (Amlodipine Besylate) 5 Mg Tab 5 Mg PO DAILY Proventil Hfa 6.7 GM Inh (Albuterol Sulfate) 90 Mcg/Act Aer 2 Puff INH Q6H PRN Reported Promethazine (Promethazine HCl) 12.5 Mg Tab 12.5 Mg PO Q6H PRN Review of Systems Except as stated in HPI: all other systems reviewed are Neg General / Constitutional: No: Fever, Chills HENT: No: Headaches, Lightheadedness Cardiovascular: Positive: Chest Pain or Discomfort, No: Palpitations (right sided pleuritic) Respiratory: Positive: Cough (productive), Shortness of Breath ( green-brown phlegm), No: Wheezing, Hemoptysis Gastrointestinal: Positive: Nausea, Diarrhea, Other (lack watery stool), No: Vomiting, Abdominal Pain Genitourinary: Positive: Decreased Urinary Output, No: Dysuria Musculoskeletal: Positive: Weakness (generalized), No: Pain Neurologic: Positive: Weakness, Dizziness (generalized), No: Headache, Change in Mentation Endocrine: No: Polyuria Physical Exam Narrative GENERAL: Well developed well-nourished male in no acute distress. Patient complaining of right sided pleuritic chest pain discomfort. SKIN: Focused skin assessment warm/dry. HEAD: Atraumatic. Normocephalic. EYES: Pupils equal and round. No scleral icterus. No injection or drainage. ENT:Mucous membranes seem pale but are moist. NECK: Trachea midline. No JVD. Supple CARDIOVASCULAR: Regular rate in the 70s and normal rhythm. No murmur appreciated. RESPIRATORY: No accessory muscle use. Rales appreciated in the right middle lung field. No wheezing appreciated. GASTROINTESTINAL: Abdomen soft, non-tender, nondistended. No pulsatile masses. No obvious hepatomegaly. MUSCULOSKELETAL: No obvious deformities. No clubbing. No cyanosis. No edema. NEUROLOGICAL: Awake and alert. No obvious cranial nerve deficits. Motor grossly within normal limits. Normal speech. Data Data Last Documented VS Vital Signs Date Time Temp Pulse Resp B/P Pulse Ox O2 Delivery O2 Flow Rate FiO2 01/30/17 13:51 75 16 132/63 96 Room Air 01/30/17 08:33 98.4 Orders Electrocardiogram (01/30/17 ) Complete Blood Count With Diff (01/30/17 09:19) Comprehensive Metabolic Panel (01/30/17 09:19) Lipase (01/30/17 09:19) Prothrombin Time / Inr (Pt) (01/30/17 09:19) Act Partial Throm Time (Ptt) (01/30/17 09:19) Urinalysis - C+S If Indicated (01/30/17 09:19) Type And Screen (01/30/17 09:19) Chest, Single Ap (01/30/17 09:19) Ecg Monitoring (01/30/17 09:19) Iv Access Insert/Monitor (01/30/17:19) Oximetry (01/30/17 09:19) Ondansetron Inj (Zofran Inj) (01/30/17 09:30) Pantoprazole Inj (Protonix Inj) (01/30/17 09:30) Sodium Chlor 0.9% 1000 Ml Inj (Ns 1000 M (01/30/17 09:19) Sodium Chloride 0.9% Flush (Ns Flush) (01/30/17 09:30) Morphine Inj (Morphine Inj) (01/30/17 09:30) Vascular Access Team Consult/P PRN (01/30/17 09:23) Vascular Poc Ultrasound (01/30/17 ) Hydromorphone Pf Inj (Dilaudid Pf Inj) (01/30/17 11:00) Sodium Chlor 0.9% 1000 Ml Inj (Ns 1000 M (01/30/17 12:00) Enteric Path (Stool) (01/30/17 12:28) C Diff Toxin Pcr (01/30/17 12:28) Labs Laboratory Tests Test 01/30/17 01/30/17 08:55 09:50 White Blood Count 6.8 TH/MM3 Red Blood Count 4.18 MIL/MM3 Hemoglobin 11.7 GM/DL Hematocrit 36.0 % Mean Corpuscular Volume 86.1 FL Mean Corpuscular Hemoglobin 27.9 PG Mean Corpuscular Hemoglobin 32.3 % Concent Red Cell Distribution Width 18.4 % Platelet Count 312 TH/MM3 Mean Platelet Volume 7.6 FL Neutrophils (%) (Auto) 76.0 % Lymphocytes (%) (Auto) 12.1 % Monocytes (%) (Auto) 9.2 % Eosinophils (%) (Auto) 1.5 % Basophils (%) (Auto) 1.2 % Neutrophils # (Auto) 5.2 TH/MM3 Lymphocytes # (Auto) 0.8 TH/MM3 Monocytes # (Auto) 0.6 TH/MM3 Eosinophils # (Auto) 0.1 TH/MM3 Basophils # (Auto) 0.1 TH/MM3 CBC Comment DIFF FINAL Differential Comment Urine Color YELLOW Urine Turbidity CLEAR Urine pH 6.0 Urine Specific [place] 1.026 Urine Protein TRACE mg/dL Urine Glucose (UA) NEG mg/dL Urine Ketones 10 mg/dL Urine Occult Blood NEG Urine Nitrite NEG Urine Bilirubin NEG Urine Urobilinogen 2.0 MG/DL Urine Leukocyte Esterase NEG Urine RBC 1 /hpf Urine WBC LESS THAN 1 /hpf Urine Squamous Epithelial <1 /hpf Cells Urine Hyaline Casts 4 /lpf Urine Mucus FEW /lpf Microscopic Urinalysis Comment CULT NOT INDICATED Prothrombin Time 11.1 SEC Prothromb Time International 1.0 RATIO Ratio Activated Partial 27.8 SEC Thromboplast Time Sodium Level 135 MEQ/L Potassium Level 3.9 MEQ/L Chloride Level 99 MEQ/L Carbon Dioxide Level 25.5 MEQ/L Anion Gap 11 MEQ/L Blood Urea Nitrogen 25 MG/DL Creatinine 0.94 MG/DL Estimat Glomerular Filtration 99 ML/MIN Rate Random Glucose 125 MG/DL Calcium Level 9.7 MG/DL Total Bilirubin 0.4 MG/DL Aspartate Amino Transf 12 U/L (AST/SGOT) Alanine Aminotransferase 18 U/L (ALT/SGPT) Alkaline Phosphatase 97 U/L Total Protein 8.1 GM/DL Albumin 3.7 GM/DL Lipase 95 U/L Blood Type B POSITIVE Antibody Screen NEGATIVE MDM Medical Decision Making Medical Screen Exam Complete: Yes Emergency Medical Condition: Yes Differential Diagnosis Dehydration versus GI bleed versus C. difficile colitis Narrative Course 61-year-old male who presents today with complaints of right sided pleuritic discomfort. The patient had previous pneumonia which she's been currently treated for. Patient also reports watery diarrhea that's black in color. He reports positional dizziness. The patient states that he has had profuse diarrhea for the last 24 hours. He is noted to be mildly dehydrated. He's been given I V hydration here in the emergency department. He's been unable to produce any stool for us here in emerged parent. He is refused rectal examination. Patient's hemoglobin is 11.7. Previous hemoglobin we have on file is 12.3. He has been observed and is in no acute distress. He'll be discharged and told to follow up with his primary care physician. Diagnosis Primary Impression: Mild dehydration Additional Impression: right sided pleuritic chest pain. Disposition: 01 DISCHARGE HOME Condition: Stable Davide Story MD Jan 30, 2017 09:28
[2017-01-30] MEDS ORDERED: ONDANSETRON HCL 4 MG/2 ML VIAL IVP ONE (09:30)
[2017-01-30] MEDS ORDERED: MORPHINE SULFATE 4 MG/ML INJ IV ONE (09:30)
[2017-01-30] MEDS ORDERED: SODIUM CHLORIDE 0.9% FLUSH 10 ML FLUSH IVF PRN (09:30)
[2017-01-30] MEDS ORDERED: PANTOPRAZOLE SODIUM 40 MG VIAL IVP ONE (09:30)
--- NOTE | 2017-01-30 09:59 | RADRPT ---
EXAM DATE/TIME: 01/30/2017 09:22 [facility] COMPARISON: CHEST SINGLE AP, January 16, 2017, 4:22. INDICATIONS : Patient states chest pains. MEDICAL HISTORY : Myocardial infarction. Hypertension Carcinoma, prostatic. GERD SURGICAL HISTORY : Cholecystectomy. Lung lobectomy, right ENCOUNTER: Initial ACUITY: 1 day PAIN SCORE: 4/10 LOCATION: Bilateral chest FINDINGS: A single view of the chest demonstrates the lungs to be symmetrically aerated without evidence of mas s, infiltrate or effusion. The cardiomediastinal contours are unremarkable. Osseous structures are intact. CONCLUSION: No acute disease. Valentín Chou MD FACR on January 30, 2017 at 9:56 Board Certified Radiologist. This report was verified electronically.
[2017-01-30 10:08] LABS: AUTOMATED NEUTROPHIL # 5.2 TH/MM3 (1.8-7.7); BASOPHIL # 0.1 TH/MM3 (0-0.2); BASOPHIL % 1.2 % (0.0-2.0); EOSINOPHIL # 0.1 TH/MM3 (0-0.4); EOSINOPHIL % 1.5 % (0.0-4.0); HEMO FLAGS DIFF FINAL; LYMPH % 12.1 % (9.0-44.0); LYMPHOCYTE # 0.8 TH/MM3 (1.0-4.8); MEAN CELL VOLUME 86.1 FL (80.0-100.0); MEAN CORPUSCULAR HEMOGLOBIN 27.9 PG (27.0-34.0); MEAN CORPUSCULAR HGB CONC 32.3 % (32.0-36.0); MONO % 9.2 % (0.0-8.0); PLATELET COUNT 312 TH/MM3 (150-450); RED BLOOD COUNT 4.18 MIL/MM3 (4.50-5.90); RED CELL DISTRIBUTION WIDTH 18.4 % (11.6-17.2); WHITE BLOOD COUNT 6.8 TH/MM3 (4.0-11.0)
[2017-01-30 10:10] LABS: BLOOD, URINE NEG (NEG); GLUCOSE,URINE NEG (NEG); HYALINE CAST, URINE 4 /lpf (RARE); KETONE, URINE 10 mg/dL (NEG); MUCUS URINE FEW /lpf (OCC); NITRITE,URINE NEG (NEG); SQUAMOUS EPITHELIAL CELL URINE <1 /hpf (0-5); URINE COLOR YELLOW (YELLW/STRAW)
[2017-01-30 10:11] LABS: COMMENT (UR) CULT NOT INDICATED; CULTURE IF INDICATED CULT NOT INDICATED
[2017-01-30 10:12] VITALS: BP 122/58; PULSE 58; RESP 16; O2SAT 100
[2017-01-30 10:19] LABS: APTT (PATIENT) 27.8 SEC (24.3-30.1); PROTHROMBIN TIME - PATIENT 11.1 SEC (9.8-11.6)
[2017-01-30 10:28] LABS: ANION GAP 11 MEQ/L (5-15); AST (GOT) 12 U/L (15-37); BICARBONATE 25.5 MEQ/L (21.0-32.0); BLOOD UREA NITROGEN 25 MG/DL (7-18); CHLORIDE 99 MEQ/L (98-107); GLOMERULAR FILTRATION RATE 99 ML/MIN (>89); POTASSIUM 3.9 MEQ/L (3.5-5.1); SODIUM (NA) 135 MEQ/L (136-145)
[2017-01-30 10:30] LABS: ALT (GPT) 18 U/L (12-78)
[2017-01-30 10:32] LABS: ALKALINE PHOSPHATASE 97 U/L (45-117); TOTAL BILIRUBIN ADULT 0.4 MG/DL (0.2-1.0)
[2017-01-30] MEDS ORDERED: HYDROmorphone HCL PF 1 MG/ML VIAL IVS ONE (11:00)
[2017-01-30 11:21] VITALS: BP 122/58; PULSE 76; RESP 18; O2SAT 98
[2017-01-30] MEDS ORDERED: SODIUM CHLOR 0.9% 1000 ML INJ 1,000 ML IV ONE (12:00)
[2017-01-30 13:51] VITALS: BP 132/63; PULSE 75; RESP 16; O2SAT 96
[2017-01-30 15:06] VITALS: BP 138/65
--- NOTE | 2017-01-31 14:23 | EKG ---
Date Performed: 01/30/2017 Time Performed: 09:04:54 PTAGE: 61 years EKG: Sinus rhythm NORMAL ECG Compared to prior tracing no significant change PREVIOUS TRACING : 01/28/2017 20.38 DOCTOR: Nehemias Hernandez Interpretating Date/Time 01/31/2017 14:22:57
== END 2017-01-30 15:07 | disposition home or self-care (01) ==
LOC: NEPE 08:31
DX: E86.0 Dehydration (principal); R07.81 Pleurodynia
CPT/HCPCS: 71010; 80053; 81001; 83690; 85025; 85610; 85730; 86850; 86900; 86901; 93005; 96374; 96375; 99285; C9113; J1170; J2270; J2405; J7030

== ENCOUNTER 2017-02-16 17:29 | Observation (INO) | payer MEDICAID ==
[~2017-02-16] VITALS: Ht 177.8 cm; Wt 70.0 kg
[2017-02-16 17:30] VITALS: BP 134/74; PULSE 106; RESP 22; TEMP 98.3; O2SAT 99
[2017-02-16] MEDS ORDERED: SODIUM CHLOR 0.9% 1000 ML INJ 1,000 ML IV SCH (18:02)
[2017-02-16] MEDS ORDERED: ONDANSETRON HCL 4 MG/2 ML VIAL IVP ONE (18:15)
[2017-02-16] MEDS ORDERED: FAMOTIDINE 20 MG/2 ML VIAL IV PUSH ONE (18:15)
[2017-02-16] MEDS ORDERED: PANTOPRAZOLE SODIUM 40 MG VIAL IVP ONE (18:15)
[2017-02-16] MEDS ORDERED: MORPHINE SULFATE 4 MG/ML INJ IV PUSH ONE (18:15)
--- NOTE | 2017-02-16 18:48 | RADRPT ---
EXAM DATE/TIME: 02/16/2017 18:34 [facility] COMPARISON: CT BRAIN W/O CONTRAST, October 24, 2016, 10:51. INDICATIONS : Altered mental status. RADIATION DOSE: 28.94 CTDIvol (mGy) MEDICAL HISTORY : Cerebrovascular disease. Carcinoma, prostate. SURGICAL HISTORY : None. ENCOUNTER: Initial ACUITY: 1 day PAIN SCALE: 0/10 LOCATION: cranial TECHNIQUE: Multiple contiguous axial images were obtained of the head. Using automated exposure control and adj ustment of the mA and/or kV according to patient size, radiation dose was kept as low as reasonably a chievable to obtain optimal diagnostic quality images. DICOM format image data is available electro nically for review and comparison. FINDINGS: CEREBRUM: The ventricles are normal for age. No evidence of midline shift, mass lesion, hemorrhage or acute in farction. No extra-axial fluid collections are seen. POSTERIOR FOSSA: The cerebellum and brainstem are intact. The 4th ventricle is midline. The cerebellopontine angle i s unremarkable. EXTRACRANIAL: The visualized portion of the orbits is intact. SKULL: The calvaria is intact. No evidence of skull fracture. CONCLUSION: Stable noncontrast CT with no acute abnormality. Bala Franco MD on February 16, 2017 at 18:45 Board Certified Radiologist. This report was verified electronically.
[2017-02-16 18:52] VITALS: RESP 18; O2SAT 99
--- NOTE | 2017-02-16 19:05 | PD ---
HPI Chief Complaint: Cardiac Complaint Time Seen by Provider: 18:58 Travel History International Travel<30 days: No Contact w/Intl Traveler<30days: No Traveled to known affect area: No History of Present Illness HPI 61-year-old male that presents to the ED for evaluation of multiple complaints. Patient is a 4 compliant to the hospital. Patient does have significant history including upper and lower GI bleeds. Patient follows with Dr. Saenz. Patient also has a history of CVA and chronic pain. Patient reports that today he developed left-sided chest pain and nausea and vomiting. Per patient he took his Lortab for pain but he was not able to keep it down because he throughout. Per patient this is what brought him here. Per patient the pain is 8 out of 10. Per patient she's also been vomiting blood and his stool has been dark. She does have a history of this in the past. Patient is somewhat of a poor historian and significant other is also not good historian. Patient states that he is "stuttering". He denies any fevers chills or sweats. No cough or runny nose. He does have multiple allergies to medication. Is somewhat unclear as to the reason patient is here today because most of the things that he is telling me seem to be chronic. The review patient's medical records and he is made the same complaints multiple times in the past. He has been admitted multiple times and has had EGDs and colonoscopies multiple times with patient reports that he has had. The patient his pain is 7 out of 10. He appears to be in no distress. PFSH Past Medical History Hx Anticoagulant Therapy: Yes Anemia: Yes Arthritis: Yes Asthma: No Blood Disorders: No Anxiety: Yes Depression: No Heart Rhythm Problems: Yes (PATIENT STATES "HEART OCCASIONALLY BEATS OUT OF RHYTHM" [place]) Cancer: Yes (PROSTATE [place]) Cardiac Catheterization: Yes (2008) Cardiovascular Problems: Yes High Cholesterol: No Chest Pain: Yes Congestive Heart Failure: No COPD: No Cerebrovascular Accident: Yes Coronary Artery Disease: Yes Diabetes: No Diminished Hearing: No Endocrine: No Gastrointestinal Disorders: Yes (GI Bleed) GERD: Yes Genitourinary: Yes (RETENTION FROM PROSTATE ENLARGEMENT) Headaches: Yes Hiatal Hernia: Yes Heparin Induced Thrombocytopen: No Hypertension: Yes 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") Implanted Vascular Access Dvce: Yes Musculoskeletal: No Neurologic: Yes (CVA, TIA) Psychiatric: No Reproductive: No Respiratory: Yes Immunizations Current: Yes Myocardial Infarction: Yes Pancreatitis: Yes Pneumonia: Yes Radiation Therapy: Yes Sleep Apnea: Yes Thyroid Disease: No Ulcer: Yes PNEUMOCCOCAL Vaccine (Year): 1 Past Surgical History Abdominal Surgery: Yes Body Medical Devices: TITANIUM MIKE IN LEFT HIP, BULLET IN RIGHT SHOULDER Cardiac Surgery: Yes Cholecystectomy: Yes Joint Replacement: Yes (L hip, L rotator cuff) Thoracic Surgery: Yes Other Surgery: Yes (pelvic surgery , lung surgery d/t viral pneumonia) Family History Family Myocardial Infarction: No Social History Alcohol Use: No Tobacco Use: Yes Substance Use: No Allergies-Medications (Allergen,Severity, Reaction): Coded Allergies: Cardura (Verified Allergy, Severe, SOB,CHEST PAIN, 01/30/17) Cipro (Verified Allergy, Severe, RASH, SWOLLEN FACE, 01/30/17) Codeine (Verified Allergy, Severe, sob, 01/30/17) Contrast Media (Verified Allergy, Severe, BLISTERS AND EDEMA AT SITE, 01/30) Imodium (Verified Allergy, Severe, rash, 01/30/17) BROKE OUT IN RASH, AND SWELLING AROUND NECK Nonsteroidal Anti-Inflammatory Agts (Verified Allergy, Severe, 01/30/17) Spironolactone (Verified Allergy, Severe, Bleeding, 01/30/17) Fentanyl (Verified Allergy, Intermediate, rash, 01/30/17) Corticosteroids (Verified Adverse Reaction, Severe, HEART MURMUR, 01/30/17) MRI PRECAUTION (Verified Adverse Reaction, Severe, SHRAPNEL IN C-SPINE per Dr. Smart 10/26/04, 01/30/17) Uncoded Allergies: FENTYNAL (Allergy, Severe, RASH AND BLISTERS, 12/27/16) PER PATIENT Reported Meds & Prescriptions Reported Meds & Active Scripts Active Elimite Topical (Permethrin) 5% Cream 1 Applic TOPICAL ONCE Tessalon Perles (Benzonatate) 100 Mg Cap 100 Mg PO TID PRN Amoxicillin-Clavulanate 875-125 mg Tab 875 Mg PO BID not for use in CrCl <30 mL/minute Symbicort Inh (Budesonide/Formoterol Fumarate) 160-4.5 Mcg/Act Aero 1 Puff INH Q12HR Prednisone 10 Mg Tab 10 Mg PO DAILY Take 30mg daily for 3 days; 20mg daily for 3 days; 10mg daily for 3 days, then stop. Famotidine 20 Mg Tab 20 Mg PO BID Lortab (Hydrocodone-Acetaminophen) 10-325 Mg Tab 1 Tab PO Q4H PRN do not take this medicine if you will drive a car or use a machine, only use it when resting at home Milk of Magnesia Liq (Magnesium Hydroxide) 400 Mg/5 Ml Susp 30 Ml PO BID PRN Xanax (Alprazolam) 1 Mg Tab 1 Mg PO BID PRN Aspirin Children's (Aspirin) 81 Mg Chew 81 Mg CHEW EVERY OTHER DAY Temazepam 30 Mg Cap 30 Mg PO HS PRN Zenpep (Pancrelipase) 40,000-136,000-218,000 Units Cap 1 Cap PO TIDPC Flomax (Tamsulosin HCl) 0.4 Mg Cap 0.4 Mg PO BID Metoprolol Succinate ER 24 HR (Metoprolol Succinate) 50 Mg Tab 50 Mg PO BID Amlodipine (Amlodipine Besylate) 5 Mg Tab 5 Mg PO DAILY Proventil Hfa 6.7 GM Inh (Albuterol Sulfate) 90 Mcg/Act Aer 2 Puff INH Q6H PRN Reported Promethazine (Promethazine HCl) 12.5 Mg Tab 12.5 Mg PO Q6H PRN Review of Systems Except as stated in HPI: all other systems reviewed are Neg Physical Exam Narrative GENERAL: SKIN: Warm and dry. HEAD: Atraumatic. Normocephalic. EYES: Pupils equal and round. No scleral icterus. No injection or drainage. ENT: No nasal bleeding or discharge. Mucous membranes pink and moist. Tongue is midline. No uvula deviation. NECK: Trachea midline. No JVD. CARDIOVASCULAR: Regular rate and rhythm. No murmurs, S3, S4. RESPIRATORY: No accessory muscle use. Clear to auscultation. Breath sounds equal bilaterally. GASTROINTESTINAL: Abdomen soft, non-tender, nondistended. Hepatic and splenic margins not palpable. MUSCULOSKELETAL: Extremities without clubbing, cyanosis, or edema. No obvious deformities. Full range of motion of the upper and lower extremities bilaterally. 2+ pulses bilaterally. NEUROLOGICAL: Awake and alert. No obvious cranial nerve deficits. Motor grossly within normal limits. Five out of 5 muscle strength in the arms and legs. Normal speech. PSYCHIATRIC: Appropriate mood and affect; insight and judgment normal. Data Data Last Documented VS Vital Signs Date Time Temp Pulse Resp B/P Pulse Ox O2 Delivery O2 Flow Rate FiO2 02/16/17 20:17 16 02/16/17 19:43 89 142/73 97 Room Air 02/16/17 17:30 98.3 Orders Electrocardiogram (02/16/17 18:02) Complete Blood Count With Diff (02/16/17 18:02) Comprehensive Metabolic Panel (02/16/17 18:02) Ckmb (Isoenzyme) Profile (02/16/17 18:02) Troponin I (02/16/17 18:02) Prothrombin Time / Inr (Pt) (02/16/17 18:02) Act Partial Throm Time (Ptt) (02/16/17 18:02) Lipase (02/16/17 18:02) Urinalysis - C+S If Indicated (02/16/17 18:02) Magnesium (Mg) (02/16/17 18:02) Thyroid Stimulating Hormone (02/16/17 18:02) Chest, Single Ap (02/16/17 18:02) Ct Brain W/O Iv Contrast(Rout) (02/16/17 18:02) Iv Access Insert/Monitor (02/16/17 18:02) Ecg Monitoring (02/16/17 18:02) Oximetry (02/16/17 18:02) Morphine Inj (Morphine Inj) (02/16/17 18:15) Ondansetron Inj (Zofran Inj) (02/16/17 18:15) Sodium Chlor 0.9% 1000 Ml Inj (Ns 1000 M (02/16/17 18:02) Pantoprazole Inj (Protonix Inj) (02/16/17 18:15) Famotidine Inj (Pepcid Inj) (02/16/17 18:15) Vascular Access Team Consult/P PRN (02/16/17 18:13) Vascular Poc Ultrasound (02/16/17 ) CKMB (02/16/17 19:35) CKMB% (02/16/17 19:35) Labs Laboratory Tests Test 02/16/17 19:35 White Blood Count 6.6 TH/MM3 Red Blood Count 4.27 MIL/MM3 Hemoglobin 12.0 GM/DL Hematocrit 36.9 % Mean Corpuscular Volume 86.4 FL Mean Corpuscular Hemoglobin 28.1 PG Mean Corpuscular Hemoglobin 32.5 % Concent Red Cell Distribution Width 17.4 % Platelet Count 409 TH/MM3 Mean Platelet Volume 7.7 FL Neutrophils (%) (Auto) 59.5 % Lymphocytes (%) (Auto) 28.8 % Monocytes (%) (Auto) 9.5 % Eosinophils (%) (Auto) 1.2 % Basophils (%) (Auto) 1.0 % Neutrophils # (Auto) 3.9 TH/MM3 Lymphocytes # (Auto) 1.9 TH/MM3 Monocytes # (Auto) 0.6 TH/MM3 Eosinophils # (Auto) 0.1 TH/MM3 Basophils # (Auto) 0.1 TH/MM3 CBC Comment DIFF FINAL Differential Comment Prothrombin Time 11.4 SEC Prothromb Time International 1.0 RATIO Ratio Activated Partial 28.2 SEC Thromboplast Time Sodium Level 137 MEQ/L Potassium Level 3.6 MEQ/L Chloride Level 103 MEQ/L Carbon Dioxide Level 23.9 MEQ/L Anion Gap 10 MEQ/L Blood Urea Nitrogen 21 MG/DL Creatinine 0.98 MG/DL Estimat Glomerular Filtration 94 ML/MIN Rate Random Glucose 96 MG/DL Calcium Level 9.8 MG/DL Magnesium Level 2.2 MG/DL Total Bilirubin 0.4 MG/DL Aspartate Amino Transf 17 U/L (AST/SGOT) Alanine Aminotransferase 19 U/L (ALT/SGPT) Alkaline Phosphatase 96 U/L Total Creatine Kinase 208 U/L Creatine Kinase MB 3.3 NG/ML Troponin I LESS THAN 0.02 NG/ML Total Protein 8.2 GM/DL Albumin 3.9 GM/DL Lipase 111 U/L Thyroid Stimulating Hormone 0.449 uIU/ML [address] [place] [address] Medical Decision Making Medical Screen Exam Complete: Yes Emergency Medical Condition: Yes Medical Record Reviewed: Yes Interpretation(s) CBC & BMP Diagram 02/16/17 19:35 LFTs and lipase WNL troponin and CKMB negative EKG shows sinus rhythm with no sign of acute ischemia or arrhythmia. Read by me and attending. Last Impressions Head CT 02/16/[id number] Signed Impressions: Service Date/Time: January 18:34 - CONCLUSION: Stable noncontrast CT with no acute abnormality. Bala Franco MD Chest X-Ray 02/16/171801 Signed Impressions: Service Date/Time: January 18:53 - CONCLUSION: No acute cardiopulmonary disease. Bala Franco MD Differential Diagnosis Chest pain versus a typical chest pain versus GI bleed versus acute on chronic pain versus chronic pain versus ACS versus anxiety versus diarrhea versus generalized weakness Narrative Course 61-year-old male that presents to the ED for evaluation of left-sided chest pain. Patient was properly examined and was found to have signs and symptoms of unclear etiology. I did review patient's medical records and his been here multiple times for similar complaints. My attending Dr. Mckeon evaluated the patient with me and agrees with plan. This time we will do labs and imaging to make sure patient doesn't have any acute disease. I suspect that a lot of this is chronic. From what I can get from the patient the main symptom is the pain. He does not appear to be in any distress. He is has had this presentation before. Labs and imaging showed no sign of acute disease. During patient's stay history seems to be changing multiple times. He has had episodes where he appears to be confused and makes no sense. I am concerned for altered mental status. For the most part patient was very coppery beginning and he still is but he has episodes where he becomes more confused and threatened staff. Patient also did mention to us that he's been out of some of his medications. I am concerned for altered mental status. Because of this recommendation is for admission for further evaluation of this. Dr. Flower agrees to admission Diagnosis Primary Impression: Altered mental status Qualified Code: R41.82 - Altered mental status, unspecified altered mental status type Additional Impression: Nonspecific chest pain Admitting Information Admitting Physician Requests: Julius Martinez Feb 16, 2017 19:05
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
[2017-02-16 19:43] VITALS: BP 142/73; PULSE 89; RESP 16; O2SAT 97
[2017-02-16 19:58] LABS: AUTOMATED NEUTROPHIL # 3.9 TH/MM3 (1.8-7.7); BASOPHIL # 0.1 TH/MM3 (0-0.2); EOSINOPHIL # 0.1 TH/MM3 (0-0.4); EOSINOPHIL % 1.2 % (0.0-4.0); HEMATOCRIT 36.9 % (39.0-51.0); HEMO FLAGS DIFF FINAL; LYMPH % 28.8 % (9.0-44.0); LYMPHOCYTE # 1.9 TH/MM3 (1.0-4.8); MEAN CELL VOLUME 86.4 FL (80.0-100.0); MEAN CORPUSCULAR HEMOGLOBIN 28.1 PG (27.0-34.0); MEAN CORPUSCULAR HGB CONC 32.5 % (32.0-36.0); MONO % 9.5 % (0.0-8.0); NEUT % 59.5 % (16.0-70.0); PLATELET COUNT 409 TH/MM3 (150-450); RED BLOOD COUNT 4.27 MIL/MM3 (4.50-5.90); RED CELL DISTRIBUTION WIDTH 17.4 % (11.6-17.2); WHITE BLOOD COUNT 6.6 TH/MM3 (4.0-11.0)
[2017-02-16 20:06] LABS: APTT (PATIENT) 28.2 SEC (24.3-30.1); PROTHROMBIN TIME - PATIENT 11.4 SEC (9.8-11.6)
[2017-02-16 20:23] LABS: ANION GAP 10 MEQ/L (5-15); AST (GOT) 17 U/L (15-37); BICARBONATE 23.9 MEQ/L (21.0-32.0); BLOOD UREA NITROGEN 21 MG/DL (7-18); CHLORIDE 103 MEQ/L (98-107); GLOMERULAR FILTRATION RATE 94 ML/MIN (>89); MAGNESIUM 2.2 MG/DL (1.5-2.5); POTASSIUM 3.6 MEQ/L (3.5-5.1); SODIUM (NA) 137 MEQ/L (136-145)
[2017-02-16 20:36] LABS: ALKALINE PHOSPHATASE 96 U/L (45-117); ALT (GPT) 19 U/L (12-78); CREATINE KINASE 208 U/L (39-308); TOTAL BILIRUBIN ADULT 0.4 MG/DL (0.2-1.0)
[2017-02-16 20:49] LABS: CKMB 3.3 NG/ML (0.5-3.6)
[2017-02-16] MEDS ORDERED: NALOXONE HCL 0.4 MG/ML AMP IV PRN (21:45)
[2017-02-16] MEDS ORDERED: SODIUM CHLORIDE 0.9% FLUSH 10 ML FLUSH IV FLUSH PRN (21:45)
[2017-02-16 23:00] VITALS: BP 129/71; PULSE 69; RESP 18; TEMP 98.2; O2SAT 98
[2017-02-16 23:59] VITALS: PULSE 74
[2017-02-17] VITALS (7 sets, daily range): BP systolic 120–150; BP diastolic 57–70; PULSE 60–75; RESP 17–20; TEMP 96.1–98.5; O2SAT 98–100
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
--- NOTE | 2017-02-17 05:06 | EKG ---
Date Performed: 02/16/2017 Time Performed: 17:48:36 PTAGE: 61 years EKG: Sinus rhythm NORMAL ECG NO SIGNIFICANT CHANGE FROM PRIOR ELECTROCARDIOGRAM. PREVIOUS TRACING : 01/30/2017 09.04 DOCTOR: Rick Mayorga Interpretating Date/Time 02/17/2017 05:04:53
[2017-02-17] MEDS ORDERED: ACETAMINOPHEN 325 MG TAB PO PRN (06:15)
[2017-02-17] MEDS: SODIUM CHLORIDE 0.9% FLUSH 10 ML FLUSH IV FLUSH SCH ×2 (09:31→21:00)
[2017-02-17] MEDS ORDERED: TEMAZEPAM 15 MG CAP PO PRN (10:00)
[2017-02-17] MEDS ORDERED: ALPRAZolam 1 MG TAB PO PRN (10:00)
[2017-02-17 10:06] LABS: BARBITURATES, URINE NEG (NEG)
[2017-02-17 10:07] LABS: AMPHETAMINE, URINE NEG (NEG); BACTERIA, URINE RARE /hpf; BLOOD, URINE NEG (NEG); COCAINE, URINE NEG (NEG); COMMENT (UR) CULT NOT INDICATED; CULTURE IF INDICATED CULT NOT INDICATED; GLUCOSE,URINE NEG (NEG); HYALINE CAST, URINE 1 /lpf (RARE); KETONE, URINE 10 mg/dL (NEG); MUCUS URINE MOD /lpf (OCC); NITRITE,URINE NEG (NEG); PH, URINE 5.5 (5.0-8.5); SQUAMOUS EPITHELIAL CELL URINE 1 /hpf (0-5); URINE COLOR YELLOW (YELLW/STRAW)
[2017-02-17] MEDS ORDERED: ALBUTEROL SULFATE 90 MCG/ACT HFA 18 GM INHALER INH PRN (11:00)
[2017-02-17] MEDS: amLODIPine BESYLATE 5 MG TAB PO SCH (11:01)
[2017-02-17] MEDS: ACETAMINOPHEN/HYDROcodone 325 MG/10 MG TAB PO PRN ×2 (11:02→19:24)
--- NOTE | 2017-02-17 11:32 | EKG ---
Date Performed: 02/17/2017 Time Performed: 01:37:52 PTAGE: 61 years EKG: Sinus rhythm WITH SINUS ARRHYTHMIA NONSPECIFIC T-WAVE ABNORMALITY BORDERLINE ECG NO SIGNIFICANT CHANGE FROM PRIOR ELECTROCARDIOGRAM. PREVIOUS TRACING : 02/16/2017 17.48 DOCTOR: Rick Mayorga Interpretating Date/Time 02/17/2017 11:31:20
--- NOTE | 2017-02-17 12:24 | HHI.PR ---
Subjective Remarks Follow-up for generalized pain and possible GI bleeding. Discussed with RN, patient has been refusing labs and medications. Eforsce did confirm that the patient is prescribed [place] 05/23/25, temazepam 30 mg at night, and Xanax twice daily. Upon entering the room, the patient immediately starts arguing about pain medication. The patient makes multiple accusations against me from things he says I did to him yesterday, when the interviewer was not working. The patient is asking for Dilaudid which she states he gets from his pain management doctor in [place]. When he is told that it was confirmed that he is taking [place], he states that we would have information from his Dr. in [place]. He also states that the [place] pill that he was given, does not look right, and he does not trust it and won't take it. Again he asked for morphine and Dilaudid. He states that he has pain all over and points to his entire abdomen and chest. When asked why he presented to the hospital, he states "because I'm bleeding". He states he's had 3 episodes of dark stools. When asked why he refused lab, he states he did not refuse lab and they took several bouts of blood in, but a much "switching the tubes". He states that he saw his caretaker resort, Dr. Saenz, this morning. When told that GI is not consulted, the patient argues that he did see Dr. Saenz this morning. Objective Vitals Vital Signs Date Time Temp Pulse Resp B/P Pulse Ox O2 Delivery O2 Flow Rate FiO2 02/17/17 08:00 65 02/17/17 07:57 96.1 60 17 150/70 99 02/17/17 04:31 98.5 75 18 120/57 100 02/17/17 04:06 75 02/16/17 23:59 74 02/16/17 23:00 98.2 69 18 129/71 98 02/16/17 20:17 16 02/16/17 19:43 89 16 142/73 97 Room Air 02/16/17 18:52 18 99 Room Air 02/16/17 17:45 101 18 99 Room Air 02/16/17 17:30 98.3 106 22 134/74 99 Room Air Result Diagram: 02/16/17193402/16/171934 Imaging Last Impressions Head CT 02/16/171801 Signed Impressions: Service Date/Time: January 18:34 - CONCLUSION: Stable noncontrast CT with no acute abnormality. Bala Franco MD Chest X-Ray 02/16/171801 Signed Impressions: Service Date/Time: January 18:53 - CONCLUSION: No acute cardiopulmonary disease. Bala Franco MD Objective Remarks GENERAL: Well-developed well-nourished. In no acute distress. Agitated/ argumentative, but appears comfortable. SKIN: Warm and dry. No lesions noted. HEENT: Normocephalic. Pupils equal and round. Mucous membranes pink and moist. CARDIOVASCULAR: Regular rate and rhythm. No murmur appreciated. RESPIRATORY: No accessory muscle use. Clear to auscultation. Breath sounds equal bilaterally. GASTROINTESTINAL: Abdomen soft, non-tender, nondistended. Bowel sounds x4. MUSCULOSKELETAL: No obvious deformities. No clubbing or cyanosis. No edema. NEUROLOGICAL: Awake and alert. No focal neurological deficits. Moves upper and lower extremities spontaneously. Pressured speech. PSYCHIATRIC: Paranoid mood and affect with pressured speech; insight and judgment questionable; possible manipulative behavior A/P Assessment and Plan 61-year-old male with past medical history of GI bleed/AVMs, anxiety, chronic pain, COPD who presented with generalized pain and possible GI bleeding Possible GI bleed: Patient complains of 3 episodes of melena. He does have a recent admission with ablation of GI AVMs with Dr. Saenz. Hemoglobin stable at 12, previously 11.7 on 01/30/17. The patient has refused further laboratory evaluation. Currently the patient tells me he will agree to have the nurse draw labs. Consider GI evaluation if further drop in hemoglobin. Resume Pepcid. IV Protonix. Generalized pain: The patient waves his hand across his entire anterior chest and abdomen when asked to locate the pain, and will not further specify. He does have a history of chronic pain and is confirmed to be on [place] 10/325 4 times daily as needed, this was resumed, although the patient is refusing. Cannot rule out ACS per protocol as patient refuses troponins. EKG 2 reviewed which showed NSR with no ischemic changes, doubt cardiac etiology. UDS positive for benzos and opiates; the patient is prescribed these. The patient definitely demonstrates manipulative and drug seeking behavior. We will continue home [place] for pain control. Paranoia/pressured speech: Unclear if these are secondary to manipulative behavior as above vs underlying psychiatric etiology. Consult psych. DVT prophylaxis: SCDs Plan of care discussed with Dr. Reyes Discharge Planning Discussed with psychiatry, patient Manzano acted, cannot refuse labs. If hemoglobin and troponin are stable, discharge planning to psych. If hemoglobin is significantly decreased, may need GI evaluation. 1730 labs today show stable hemoglobin and troponins within normal limits. Discussed with gastroenterology, no intervention planned, patient cleared from their perspective for discharge to inpatient psychiatry. The patient is medically clear for discharge to inpatient psychiatry. Gaston Whitaker Feb 17, 2017 12:24
[2017-02-17] MEDS ORDERED: HALOPERIDOL LACTATE 5 MG/ML AMP IM PRN (13:00)
[2017-02-17] MEDS: PANTOPRAZOLE SODIUM 40 MG VIAL IV PUSH SCH (13:15)
[2017-02-17] MEDS ORDERED: HALOPERIDOL LACTATE 5 MG/ML AMP IM ONE (13:30)
[2017-02-17] MEDS ORDERED: PANCRELIPASE PO SCH (13:30)
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
[2017-02-17 17:01] LABS: AUTOMATED NEUTROPHIL # 3.2 TH/MM3 (1.8-7.7); BASOPHIL # 0.1 TH/MM3 (0-0.2); BASOPHIL % 1.1 % (0.0-2.0); EOSINOPHIL # 0.1 TH/MM3 (0-0.4); EOSINOPHIL % 2.6 % (0.0-4.0); HEMATOCRIT 35.4 % (39.0-51.0); HEMO FLAGS DIFF FINAL; LYMPH % 30.5 % (9.0-44.0); LYMPHOCYTE # 1.8 TH/MM3 (1.0-4.8); MEAN CORPUSCULAR HEMOGLOBIN 27.8 PG (27.0-34.0); MONO % 10.2 % (0.0-8.0); NEUT % 55.6 % (16.0-70.0); PLATELET COUNT 380 TH/MM3 (150-450); RED BLOOD COUNT 4.07 MIL/MM3 (4.50-5.90); WHITE BLOOD COUNT 5.8 TH/MM3 (4.0-11.0)
--- NOTE | 2017-02-17 17:10 | PD.CONS ---
HPI History of Present Illness This is a 61 year old male w/ hx GERD, prostate ca, previous GIB who presented to ER in an agitated state, reportedly ripped the mouse off the computer in the room. His hgb is 12.0. It was 10.9 on 01/02/17. he is c/o black tarry stools for the last week, BRBPR since yesterday, and abdominal pain in lower abd in the last week. He is currently in no apparent distress and is restrained. He has just been johnson acted. Pt denies ETOH, illicit drug use prior to admission. He can provide no further meaningful history as he is making nonsensical statements such as he had a two hour lunch with this provider. He was here in December and had an EGD 12/26/16 --> gastritis, esophagitis, few small AVMs s/p APC, hiatal hernia; colonoscopy 12/27/16 --> 2 AVMs in cecum s/p ablation diverticulosis polyps, internal hemorrhoids. PFSH Past Medical History unable to obtain from patient From Dr. 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 Residual right upper extremity spastic paresis History of atrial fibrillation Coronary artery disease History of GI bleed History of pneumonia, pleural effusion with thoracotomy and decortication. . Past Surgical History unable to obtain from patient From Dr. Ken's H&P 01/13/17: History of left rotator cuff repair Thoracotomy Left hip Abdominal exploratory laparotomy Coded Allergies: Cardura (Verified Allergy, Severe, SOB,CHEST PAIN, 01/30/17) Cipro (Verified Allergy, Severe, RASH, SWOLLEN FACE, 01/30/17) Codeine (Verified Allergy, Severe, sob, 01/30/17) Contrast Media (Verified Allergy, Severe, BLISTERS AND EDEMA AT SITE, 01/30) Imodium (Verified Allergy, Severe, rash, 01/30/17) BROKE OUT IN RASH, AND SWELLING AROUND NECK Nonsteroidal Anti-Inflammatory Agts (Verified Allergy, Severe, 01/30/17) Spironolactone (Verified Allergy, Severe, Bleeding, 01/30/17) Fentanyl (Verified Allergy, Intermediate, rash, 01/30/17) Corticosteroids (Verified Adverse Reaction, Severe, HEART MURMUR, 01/30/17) MRI PRECAUTION (Verified Adverse Reaction, Severe, SHRAPNEL IN C-SPINE per Dr. Smart 10/26/04, 01/30/17) Uncoded Allergies: FENTYNAL (Allergy, Severe, RASH AND BLISTERS, 12/27/16) PER PATIENT Family History unable to obtain from patient From Dr. Ken's H&P 01/13/17: Mother with gallbladder problems. Father is estranged. . Social History Pt denies ETOH, illicit drugs. From Dr. Ken's H&P 01/13/17: Patient smokes 2 cigarettes a day for the past 9 years. Nondrinker. . Review of Systems ROS noncontributory GI Exam Vitals I&O Vital Signs Date Time Temp Pulse Resp B/P Pulse Ox O2 Delivery O2 Flow Rate FiO2 02/17/17 16:02 69 17 136/65 99 02/17/17 12:07 96.2 70 17 131/66 99 02/17/17 08:00 65 02/17/17 07:57 96.1 60 17 150/70 99 02/17/17 04:31 98.5 75 18 120/57 100 02/17/17 04:06 75 02/16/17 23:59 74 02/16/17 23:00 98.2 69 18 129/71 98 02/16/17 20:17 16 02/16/17 19:43 89 16 142/73 97 Room Air 02/16/17 18:52 18 99 Room Air 02/16/17 17:45 101 18 99 Room Air 02/16/17 17:30 98.3 106 22 134/74 99 Room Air I/O 02/16/17 02/16/17 02/16/17 02/17/17 02/17/17 02/17/17 07:00 15:00 23:00 07:00 15:00 23:00 Intake Total 480 ml Output Total 300 ml Balance 180 ml Intake Oral 480 ml Output Urine Total 300 ml # Voids 2 Imaging Last Impressions Head CT 02/16/171801 Signed Impressions: Service Date/Time: January 18:34 - CONCLUSION: Stable noncontrast CT with no acute abnormality. Bala Franco MD Chest X-Ray 02/16/171801 Signed Impressions: Service Date/Time: January 18:53 - CONCLUSION: No acute cardiopulmonary disease. Bala Franco MD Laboratory Test 02/16/17 02/17/17 19:35 09:30 White Blood Count 6.6 TH/MM3 Red Blood Count 4.27 MIL/MM3 Hemoglobin 12.0 GM/DL Hematocrit 36.9 % Mean Corpuscular Volume 86.4 FL Mean Corpuscular Hemoglobin 28.1 PG Mean Corpuscular Hemoglobin 32.5 % Concent Red Cell Distribution Width 17.4 % Platelet Count 409 TH/MM3 Mean Platelet Volume 7.7 FL Neutrophils (%) (Auto) 59.5 % Lymphocytes (%) (Auto) 28.8 % Monocytes (%) (Auto) 9.5 % Eosinophils (%) (Auto) 1.2 % Basophils (%) (Auto) 1.0 % Neutrophils # (Auto) 3.9 TH/MM3 Lymphocytes # (Auto) 1.9 TH/MM3 Monocytes # (Auto) 0.6 TH/MM3 Eosinophils # (Auto) 0.1 TH/MM3 Basophils # (Auto) 0.1 TH/MM3 CBC Comment DIFF FINAL Differential Comment Prothrombin Time 11.4 SEC Prothromb Time International 1.0 RATIO Ratio Activated Partial 28.2 SEC Thromboplast Time Sodium Level 137 MEQ/L Potassium Level 3.6 MEQ/L Chloride Level 103 MEQ/L Carbon Dioxide Level 23.9 MEQ/L Anion Gap 10 MEQ/L Blood Urea Nitrogen 21 MG/DL Creatinine 0.98 MG/DL Estimat Glomerular Filtration 94 ML/MIN Rate Random Glucose 96 MG/DL Calcium Level 9.8 MG/DL Magnesium Level 2.2 MG/DL Total Bilirubin 0.4 MG/DL Aspartate Amino Transf 17 U/L (AST/SGOT) Alanine Aminotransferase 19 U/L (ALT/SGPT) Alkaline Phosphatase 96 U/L Total Creatine Kinase 208 U/L Creatine Kinase MB 3.3 NG/ML Troponin I LESS THAN 0.02 NG/ML Total Protein 8.2 GM/DL Albumin 3.9 GM/DL Lipase 111 U/L Thyroid Stimulating Hormone 0.449 uIU/ML 3rd Gen Urine Color YELLOW Urine Turbidity CLEAR Urine pH 5.5 Urine Specific [place] 1.027 Urine Protein TRACE mg/dL Urine Glucose (UA) NEG mg/dL Urine Ketones 10 mg/dL Urine Occult Blood NEG Urine Nitrite NEG Urine Bilirubin NEG Urine Urobilinogen 2.0 MG/DL Urine Leukocyte Esterase NEG Urine RBC 1 /hpf Urine WBC 2 /hpf Urine Squamous Epithelial 1 /hpf Cells Urine Bacteria RARE /hpf Urine Hyaline Casts 1 /lpf Urine Mucus MOD /lpf Microscopic Urinalysis Comment CULT NOT INDICATED Urine Opiates Screen POS Urine Barbiturates Screen NEG Urine Amphetamines Screen NEG Urine Benzodiazepines Screen POS Urine Cocaine Screen NEG Urine Cannabinoids Screen NEG Physical Examination HEENT: PERRL; normocephalic; atraumatic; no jaundice. CHEST: did not cooperate. CARDIAC: did not cooperate ABDOMEN: Soft, nondistended, lower abd TTP per pt; no hepatosplenomegaly; bowel sounds are present in all four quadrants. EXTREMITIES: No clubbing, cyanosis, or edema. SKIN: Normal; no rash; no jaundice. DISCOVERY MANAGER: altered mental status Assessment and Plan Plan ASSESSMENT - anemia - 12.0 on admission, prior admission 01/02/17 was 10.9 so this is improvement. Pt complains of 1 week tarry stool, BRBPR in last 2d, and lower abd pain. EGD 12/26/16 --> gastritis, esophagitis, few small AVMs s/p APC, hiatal hernia; colonoscopy 12/27/16 --> 2 AVMs in cecum s/p ablation diverticulosis polyps, internal hemorrhoids. Pt not consentable at this time and his Hgb is up from last admission. - Natacha Act - per psych PLAN - monitor HH - notify GI of significant drop in HH - notify GI of active bleeding - consider hemoccult - transfuse if needed - okay to send to psych - d/w ER PA This pt seen by myself and Dr Jerez and this note is written on his behalf Selam Miranda Feb 17, 2017 17:10
[2017-02-17] MEDS ORDERED: HYDR-3535 PO (17:19)
[2017-02-17 17:25] LABS: ANION GAP 9 MEQ/L (5-15); BICARBONATE 21.9 MEQ/L (21.0-32.0); BLOOD UREA NITROGEN 20 MG/DL (7-18); CHLORIDE 106 MEQ/L (98-107); GLOMERULAR FILTRATION RATE 159 ML/MIN (>89); POTASSIUM 3.4 MEQ/L (3.5-5.1); SODIUM (NA) 137 MEQ/L (136-145)
[2017-02-17 17:30] LABS: CREATINE KINASE 220 U/L (39-308)
[2017-02-17] MEDS ORDERED: POTASSIUM CHLORIDE 10 MEQ CONTROLLED RELEASE TAB PO ONE (18:00)
[2017-02-17] MEDS: BUDESONIDE-FORMOTEROL 160/4.5 MCG INHALER INH SCH (22:07)
[2017-02-17] MEDS: TAMSULOSIN HCL 0.4 MG CAP PO SCH (22:07)
[2017-02-17] MEDS: FAMOTIDINE 20 MG TAB PO SCH (22:08)
[2017-02-17 23:47] LABS: ANION GAP 8 MEQ/L (5-15); BICARBONATE 24.2 MEQ/L (21.0-32.0); BLOOD UREA NITROGEN 18 MG/DL (7-18); CHLORIDE 105 MEQ/L (98-107); GLOMERULAR FILTRATION RATE 156 ML/MIN (>89); POTASSIUM 3.5 MEQ/L (3.5-5.1); SODIUM (NA) 137 MEQ/L (136-145)
[2017-02-18 00:40] VITALS: BP 134/66; PULSE 65; RESP 18; TEMP 98; O2SAT 95
[2017-02-18] MEDS: ACETAMINOPHEN/HYDROcodone 325 MG/10 MG TAB PO PRN ×2 (05:15→10:29)
[2017-02-18 07:25] VITALS: BP 121/65; PULSE 71; RESP 18; O2SAT 96
[2017-02-18 08:00] VITALS: PULSE 66
[2017-02-18] MEDS: FAMOTIDINE 20 MG TAB PO SCH (09:00)
[2017-02-18] MEDS: SODIUM CHLORIDE 0.9% FLUSH 10 ML FLUSH IV FLUSH SCH (09:00)
[2017-02-18] MEDS: TAMSULOSIN HCL 0.4 MG CAP PO SCH (09:02)
[2017-02-18] MEDS: amLODIPine BESYLATE 5 MG TAB PO SCH (09:02)
[2017-02-18] MEDS: BUDESONIDE-FORMOTEROL 160/4.5 MCG INHALER INH SCH (09:03)
[2017-02-18] MEDS: PANTOPRAZOLE SODIUM 40 MG VIAL IV PUSH SCH (09:03)
--- NOTE | 2017-02-18 09:45 | PD.PN.STU ---
Subjective Remarks S: Patient is a 61 year old male who presents for GI follow up He states that he's been having black tarry stools, nausea, and vomiting for a bout 4 days now. He states that he's lost about 35 pounds in 4 months due to not being about to keep food down and on going abdominal pain In the past 4-5 days his abdominal pain got more severe. He says the pain is dull, and diffuse He has dysphagia to both solids and liquids, noting he experiences some pain with swallowing also He states that his stools have been a watery black/oily consistency. He states that he's been taking loratab 325mg for pain. He denies fever or chills, chest pain or SOB Remaining ROS unremarkable PMH: He states that he has some sort of abdominal cancer treated with radiation , but can't recall which type; acid reflux SHx: says he smokes 2 cigarettes a day; prior history of alcohol abuse, quit 8 years ago. Objective Vitals Vital Signs Date Time Temp Pulse Resp B/P Pulse Ox O2 Delivery O2 Flow Rate FiO2 02/18/17 07:25 71 18 121/65 96 02/18/17 00:40 98.0 65 18 134/66 95 02/17/17 20:29 18 02/17/17 19:48 97.8 65 20 137/69 98 02/17/17 16:02 69 17 136/65 99 02/17/17 12:07 96.2 70 17 131/66 99 I/O 02/17/17 02/17/17 02/17/17 02/18/17 02/18/17 02/18/17 07:00 15:00 23:00 07:00 15:00 23:00 Intake Total 800 ml Output Total 550 ml 300 ml Balance 250 ml -300 ml Intake Oral 800 ml Output Urine Total 550 ml 300 ml # Voids 2 O: Gen: WDWN, not in acute distress; patient examined in restraints HEENT: negative Neck: supple, neg LAD Heart: RRR, no murmurs Lungs: CTA Abdomen: soft, mild tenderness in the epigastric region, nondistended; normal bowel sounds; no HSM appreciated Ext: no cyanosis or edema Neuro: alert and oriented x 3; calm; no focal deficits Result Diagram: 02/17/17 1649 60 Other Results Laboratory Tests Test 02/16/17 02/17/17 02/17/17 02/17/17 19:35 09:30 16:49 22:30 Red Blood Count 4.27 MIL/MM3 4.07 MIL/MM3 (4.50-5.90) (4.50-5.90) Hemoglobin 12.0 GM/DL 11.3 GM/DL (13.0-17.0) (13.0-17.0) Hematocrit 36.9 % 35.4 % (39.0-51.0) (39.0-51.0) Red Cell Distribution Width 17.4 % (11.6-17.2) Monocytes (%) (Auto) 9.5 % (0.0-8.0) 10.2 % (0.0-8.0) Blood Urea Nitrogen 21 MG/DL (7-18) 20 MG/DL (7-18) Troponin I LESS THAN 0.02 LESS THAN 0.02 LESS THAN 0.02 NG/ML NG/ML NG/ML (0.02-0.05) (0.02-0.05) (0.02-0.05) Urine Ketones 10 mg/dL (NEG) Urine Bacteria RARE /hpf (NONE) Urine Mucus MOD /lpf (OCC) Urine Opiates Screen POS (NEG) Urine Benzodiazepines Screen POS (NEG) Potassium Level 3.4 MEQ/L (3.5-5.1) Imaging Last [address] 02/16/171801 Signed Impressions: Service Date/Time: January 18:34 - CONCLUSION: Stable noncontrast CT with no acute abnormality. Bala Franco MD Chest X-Ray 02/16/171801 Signed Impressions: Service Date/Time: January 18:53 - CONCLUSION: No acute cardiopulmonary disease. Bala Franco MD Medications and IVs Current Medications Medications (Trade) Dose Ordered Sig/Juan José Route Start Time Stop Time Status Last Admin (NS Flush) 2 ml UNSCH PRN IV FLUSH 02/16/17 21:45 (NS Flush) 2 ml BID IV FLUSH 02/17/17 09:00 02/17/17 09:31 (Narcan Inj) 0.4 mg UNSCH PRN IV 02/16/17 21:45 (Tylenol) 650 mg Q4H PRN PO 02/17/17 06:15 02/17/17 06:17 (Ventolin Hfa Inh) 2 puff Q6H PRN INH 02/17/17 11:00 (Xanax) 1 mg BID PRN PO 02/17/17 10:00 02/17/17 22:07 (Norvasc) 5 mg DAILY PO 02/17/17 11:00 02/18/17 09:02 (Symbicort 160-4.5 Inh) 1 puff Q12HR INH 02/17/17 21:00 02/18/17 09:03 (Pepcid) 20 mg BID PO 02/17/17 21:00 02/17/17 22:08 (Flomax) 0.4 mg BID PO 02/17/17 21:00 02/18/17 09:02 (Restoril) 30 mg HS PRN PO 02/17/17 10:00 02/17/17 22:08 Non-Formulary Medication 1 cap TIDPC PO 02/17/17 13:30 Hold ([place] 10-325 Mg) 1 tab Q6H PRN PO 02/17/17 10:00 02/18/17 05:15 (Haldol Inj) 5 mg Q6H PRN IM 02/17/17 13:00 (Protonix Inj) 40 mg DAILY IV PUSH 02/17/17 12:45 02/18/17 09:03 A/P Assessment and Plan A: 1. Normocytic Anemia secondary to GI bleed 2. Dysphagia secondary to possible esophageal stricture 3. possible malignancy P: 1. EGD for anemia, dysphagia, and reported history of acid reflux 2. order Abdominal CT to rule out possible malignancy due to reported history of abdominal cancer and reported 35 pound weight loss and on going abdominal pain. 3. continue GI prophylaxis with pantoprazole 4. Trend H/H, and transfuse if necessary GI consult note Patient was seen and examined Case discussed with the medical student Agree with above Patient presenting with multiple complaints that include dysphagia and weight loss melena and anemia We'll need to proceed with EGD and CT of the abdomen Further recommendations shall depend on the hospital course and the findings on diagnostics Malachi Carpenter M3 Feb 18, 2017 09:45 Pablo Dasilva MD Feb 18, 2017 19:25
[2017-02-18] MEDS ORDERED: PANT20TA2 PO (10:46)
--- NOTE | 2017-02-18 10:49 | HHI.PR ---
Subjective Remarks Follow-up for generalized pain and psychosis. Per RN report, the patient was destroying the computer in his room, and was placed in 4 point restraints. The patient states that he is calm now and wants to be removed from restraints. He understands that he will be reevaluated by psychiatry today. He continues to complain of generalized abdominal pain. He complains of nausea, but states he is tolerating diet and has not vomited. He denies any further bowel movements since admission. He understands that he needs to follow-up with GI as outpatient. He does ask for "a milligram of morphine to quiet this pain down". He states his home [employer] does not work. Objective Vitals Vital Signs Date Time Temp Pulse Resp B/P Pulse Ox O2 Delivery O2 Flow Rate FiO2 02/18/17 07:25 71 18 121/65 96 02/18/17 00:40 98.0 65 18 134/66 95 02/17/17 20:29 18 02/17/17 19:48 97.8 65 20 137/69 98 02/17/17 16:02 69 17 136/65 99 02/17/17 12:07 96.2 70 17 131/66 99 I/O 02/17/17 02/17/17 02/17/17 02/18/17 02/18/17 02/18/17 07:00 15:00 23:00 07:00 15:00 23:00 Intake Total 800 ml Output Total 550 ml 300 ml Balance 250 ml -300 ml Intake Oral 800 ml Output Urine Total 550 ml 300 ml # Voids 2 Result Diagram: 02/17/17 1649 02/17/170 Objective Remarks GENERAL: Well-developed well-nourished. In no acute distress. Less Agitated/ argumentative today. SKIN: Warm and dry. No lesions noted. HEENT: Normocephalic. Pupils equal and round. Mucous membranes pink and moist. CARDIOVASCULAR: Regular rate and rhythm. No murmur appreciated. RESPIRATORY: No accessory muscle use. Clear to auscultation. Breath sounds equal bilaterally. GASTROINTESTINAL: Abdomen soft, nondistended. Bowel sounds x4. Reports generalized abdominal pain when lightly touching all quadrants with stethoscope. MUSCULOSKELETAL: No obvious deformities. No clubbing or cyanosis. No edema. NEUROLOGICAL: Awake and alert. No focal neurological deficits. Moves upper and lower extremities spontaneously. Normal speech. PSYCHIATRIC: Calm mood and flat affect; still with some occasional pressured speech; insight and judgment questionable; possible manipulative behavior A/P Assessment and Plan 61-year-old male with past medical history of GI bleed/AVMs, anxiety, chronic pain, COPD who presented with generalized pain and possible GI bleeding Possible GI bleed: Patient complains of 3 episodes of melena. He does have a recent admission with ablation of GI AVMs with Dr. Saenz. Hemoglobin stable at 12/11.3, previously 11.7 on 01/30/17. GI saw the patient and recommended no endoscopic evaluation at this time. Follow-up with GI as outpatient. Resumed Pepcid. Continue PPI. Generalized pain: The patient has demonstrated drug-seeking behavior. Regarding chest pain, ACS ruled out per protocol with unremarkable serial cardiac enzymes and EKGs. Cleared by GI as above. UDS positive for benzos and opiates; the patient is prescribed these. We will continue home Nichols for pain control. Paranoia/pressured speech/possible psychosis: Unclear if these are secondary to drug-seeking behavior as above vs underlying psychiatric etiology. Consulted psych, discussed with Dr Park, possible underlying psychosis, patient Manzano acted. The patient is medically clear for discharge to psychiatry. DVT prophylaxis: SCDs Plan of care discussed with Dr. Reyes Discharge Planning The patient is medically clear for discharge pending psychiatric input. Gaston Whitaker Feb 18, 2017 10:49
[2017-02-18 12:00] VITALS: BP 112/57; PULSE 80; PULSE 81; RESP 18; TEMP 96.1; O2SAT 99
[2017-02-18] MEDS ORDERED: ACETAMINOPHEN 325 MG TAB PO PRN (13:00)
[2017-02-18] MEDS ORDERED: ALUMINUM/MAGNESIUM/SIMETH 30 ML CUP PO PRN (13:00)
[2017-02-18] MEDS ORDERED: LORazepam 2 MG/ML VIAL IM PRN ×2 (13:00)
[2017-02-18] MEDS ORDERED: hydrOXYzine HCL 50 MG TAB PO PRN (13:00)
[2017-02-18] MEDS ORDERED: LORazepam 1 MG TAB PO PRN (13:00)
[2017-02-18] MEDS ORDERED: diphenhydrAMINE HCL 50 MG/ML VIAL IM PRN (13:00)
[2017-02-18] MEDS ORDERED: LORazepam 0.5 MG TAB PO PRN (13:00)
[2017-02-18] MEDS ORDERED: MAGNESIUM HYDROXIDE SUSP 30 ML CUP PO PRN (13:00)
[2017-02-18] MEDS ORDERED: diphenhydrAMINE HCL 50 MG CAP PO PRN (13:00)
[2017-02-18 16:00] VITALS: BP 112/60; PULSE 78; RESP 18; TEMP 97.1; O2SAT 98
[2017-02-18] MEDS ORDERED: METO50TA11 PO (18:18)
[2017-02-18] MEDS ORDERED: PANC1CAP9 PO (18:18)
[2017-02-19] MEDS ORDERED: NICOTINE 21 MG/24 HR PATCH T-DERMAL SCH (09:00)
== END 2017-02-18 15:55 ==
LOC: NEPC 17:29 → NEDA 21:18 → NEPFCDU 22:27
PROVIDERS: ADMIT Hospitalist; ATTEND Hospitalist
DX: R41.82 Altered mental status, unspecified (principal); F29 Unspecified psychosis not due to a substance or known physiological condition; G89.29 Other chronic pain; I25.10 Atherosclerotic heart disease of native coronary artery without angina pectoris; I48.91 Unspecified atrial fibrillation; K92.1 Melena; D64.9 Anemia, unspecified; F60.9 Personality disorder, unspecified; R07.89 Other chest pain; I50.9 Heart failure, unspecified; Z79.899 Other long term (current) drug therapy; Z86.73 Personal history of transient ischemic attack (TIA), and cerebral infarction without residual deficits; Z79.82 Long term (current) use of aspirin; F17.210 Nicotine dependence, cigarettes, uncomplicated
CPT/HCPCS: 96361; 96374; 96375; 99285; G0378; 70450; 71010; 76937; 80048; 80053; 80307; 81001; 82550; 82552; 83690; 83735; 84443; 84484; 85025; 85610; 85730; 93005; C9113; J1630; J2270; J2405; J7030

== ENCOUNTER 2017-02-18 16:07 | Inpatient (IN) | payer MEDICAID ==
[~2017-02-18] VITALS: Ht 177.8 cm; Wt 68.8 kg
[2017-02-18 16:00] VITALS: BP 124/62; PULSE 77; RESP 18; TEMP 97.5; O2SAT 99
[~2017-02-18 16:07] MED LIST changes: -AMOX875T2 PO; -ASPI81CH7 CHEW; -BENZ100 PO; -METO50TA11 PO; -PANC1CAP9 PO; +PANT20TA2 PO; -PERM5CRE11 TOPICAL; -PRED10 PO; -PROM12.54 PO
[2017-02-18] MEDS ORDERED: LORazepam 2 MG/ML VIAL IM PRN (18:00)
[2017-02-18] MEDS ORDERED: BENZONATATE 100 MG CAP PO PRN (18:15)
[2017-02-18] MEDS ORDERED: METO50TA11 PO (18:18)
[2017-02-18] MEDS ORDERED: PANC1CAP9 PO (18:18)
[2017-02-18] MEDS ORDERED: ALUMINUM/MAGNESIUM/SIMETH 30 ML CUP PO PRN (18:30)
[2017-02-18] MEDS ORDERED: diphenhydrAMINE HCL 50 MG/ML VIAL IM PRN (18:30)
[2017-02-18] MEDS ORDERED: MAGNESIUM HYDROXIDE SUSP 30 ML CUP PO PRN ×2 (18:30)
[2017-02-18] MEDS: LORazepam 1 MG TAB PO PRN (18:37)
[2017-02-18] MEDS: AMOXICILLIN/CLAVULANATE K 875 MG TAB PO SCH (21:00)
[2017-02-18] MEDS: TAMSULOSIN HCL 0.4 MG CAP PO SCH (21:00)
[2017-02-18] MEDS: METOPROLOL SUCCINATE 50 MG EXTENDED RELEASE TAB PO SCH (21:00)
[2017-02-18] MEDS: BUDESONIDE-FORMOTEROL 160/4.5 MCG INHALER INH SCH (21:00)
[2017-02-18] MEDS: diphenhydrAMINE HCL 50 MG CAP PO PRN (21:25)
[2017-02-18] MEDS: FAMOTIDINE 20 MG TAB PO SCH (21:26)
[2017-02-19] MEDS: LORazepam 1 MG TAB PO PRN ×3 (00:45→20:21)
[2017-02-19] MEDS: ALBUTEROL SULFATE 90 MCG/ACT HFA 18 GM INHALER INH PRN (02:29)
[2017-02-19 05:32] VITALS: BP 106/55; PULSE 77; RESP 18; TEMP 99.7; O2SAT 95
[2017-02-19] MEDS ORDERED: LIPASE/PROTEASE/AMYLASE (24,000/76,000/120,000) CAP PO SCH (08:00)
[2017-02-19] MEDS: AMOXICILLIN/CLAVULANATE K 875 MG TAB PO SCH (08:46)
[2017-02-19] MEDS: BUDESONIDE-FORMOTEROL 160/4.5 MCG INHALER INH SCH ×2 (08:46→20:20)
[2017-02-19] MEDS: TAMSULOSIN HCL 0.4 MG CAP PO SCH ×2 (08:46→20:20)
[2017-02-19] MEDS: FAMOTIDINE 20 MG TAB PO SCH ×3 (08:47→20:20)
[2017-02-19] MEDS: METOPROLOL SUCCINATE 50 MG EXTENDED RELEASE TAB PO SCH (08:47)
[2017-02-19] MEDS: amLODIPine BESYLATE 5 MG TAB PO SCH (08:48)
[2017-02-19] MEDS ORDERED: predniSONE 10 MG TAB PO SCH (09:00)
[2017-02-19] MEDS: PANTOPRAZOLE SOD 20 MG DELAYED RELEASE TAB PO SCH (09:45)
[2017-02-19 11:07] LABS: ALT (GPT) 16 U/L (12-78); ANION GAP 9 MEQ/L (5-15); AST (GOT) 21 U/L (15-37); BICARBONATE 21.1 MEQ/L (21.0-32.0); CHLORIDE 106 MEQ/L (98-107); GLOMERULAR FILTRATION RATE 110 ML/MIN (>89); POTASSIUM 4.6 MEQ/L (3.5-5.1); SODIUM (NA) 136 MEQ/L (136-145)
[2017-02-19 11:11] LABS: ALKALINE PHOSPHATASE 83 U/L (45-117); BLOOD UREA NITROGEN 20 MG/DL (7-18); TOTAL BILIRUBIN ADULT 0.4 MG/DL (0.2-1.0)
--- NOTE | 2017-02-19 11:46 | HHI.HP ---
Provisional Diagnosis Admission Date Feb 18, 2017 at 16:07 [place] I. Brief psychotic disorder Certification of Person's Competence To Provide Express and Informed Consent I have personally examined Roberto Erazo , a person being served at [facility] on, Feb 19, 2017 11:45. Express and informed consent means consent voluntarily given in writing, by a competent person, after sufficient explanation and disclosure of the subject matter involved to enable the person to make a knowing and willful decision without any element of force, fraud, deceit, duress, or other form of constraint or coercion. This person is 18 years of age or older, is not now known to be incompetent to consent to treatment with a guardian advocate, and does not have a health care surrogate or proxy currently making medical treatment decisions. I have found this person to be one of the following: [x] Competent to provide express and informed consent, as defined above, for voluntary admission to this facility and is competent to provide express and informed consent for treatment. He/she has the consistent capacity to make well reasoned, willful, and knowing decisions concerning his or her medical or mental health treatment. The person fully and consistently understands the purpose of the admission for examination/placement and is fully capable of personally exercising all rights assured [place] Incompetent to provide express and informed consent to voluntary admission, and this is incompetent to provide express and informed consent to treatment. The person must be transferred to involuntary status and a petition for a guardian advocate filed with the Circuit Court. [] Refusing to provide express and informed consent to voluntary admission but is competent to provide express and informed consent for treatment. The person must be discharged or transferred to involuntary status. Form shall be completed within 24 hours of a person's arrival at the receiving facility and filed in the clinical record of each person: 1. Admitted on a voluntary basis 2. Permitted to provide express and informed consent to his/her own treatment 3. Allowed to transfer from involuntary to voluntary status 4. Prior to permitting a person to consent to his or her own treatment after having been previously found incompetent to consent to treatment. History of Present Illness Capacity: Has Capacity HPI Patient seen by this physician in the emergency department. Also seen on the 2700 unit. Spoke to the patient's nurse regarding his behavior. He is delusional with paranoid ideation, ideas of reference, and disoriented to situation. He demonstrates looseness of associations and contradicts himself. At one point he suggested his was outside the emergency department and at another point he indicated she was . He also reported there was a couple living in the hospital who are persecuting him. When this physician confronted the patient about his contradictory and incoherent remarks, he reported he was simply joking. This physician found his past treatment history at [facility] and noted approximately 17 visits. Apparently he has been seen by psychiatry and noted to have drug-seeking behavior, paranoia, agitation and may delusional claims. Review of Systems Except as stated in HPI: all other systems reviewed are Neg Past Psych History Psychological trauma history Unknown psychological trauma but multiple emergency department admissions admissions some of which appear to be psychiatric related. Violence risk - others (6 mos) Minimal Violence risk - self (6 mos) Moderate to severe. Patient required chemical and physical restraints in the emergency department. He was pulling out IVs lines and striking at nurses. Substance Abuse History Drugs/Alcohol past 12 months Patient is drug-seeking, primarily asking for opiates. He appears to have a history of drug-seeking behavior. Past Family Social History Coded Allergies: Cardura (Verified Allergy, Severe, SOB,CHEST PAIN, 01/30/17) Cipro (Verified Allergy, Severe, RASH, SWOLLEN FACE, 01/30/17) Codeine (Verified Allergy, Severe, sob, 01/30/17) Imodium (Verified Allergy, Severe, rash, 01/30/17) BROKE OUT IN RASH, AND SWELLING AROUND NECK Nonsteroidal Anti-Inflammatory Agts (Verified Allergy, Severe, 01/30/17) Spironolactone (Verified Allergy, Severe, Bleeding, 01/30/17) Fentanyl (Verified Allergy, Intermediate, rash, 01/30/17) Contrast Media (Verified Adverse Reaction, Severe, BLISTERS AND EDEMA AT SITE, 02/19/17) IV CONTRAST DYE ONLY, PT IS NOT ALLERGIC TO ORAL CONTRAST PER REPORT Corticosteroids (Verified Adverse Reaction, Severe, HEART MURMUR, 01/30/17) MRI PRECAUTION (Verified Adverse Reaction, Severe, SHRAPNEL IN C-SPINE per Dr. Smart 10/26/04, 01/30/17) Uncoded Allergies: FENTYNAL (Allergy, Severe, RASH AND BLISTERS, 12/27/16) PER PATIENT Active Scripts Metoprolol Succinate ER 24 HR 50 Mg Tab50 Mg PO BID #30 TAB Ref 0 Prov:NudRolando GaytanP 02/18/17 Pancrelipase (Zenpep)40,000-136,000-218,000 Units Cap1 Cap PO TIDPC #90 CAP Ref 0 Prov:Nudalo-Maryanne,Iszenn INSURANCE SALES ASSISTANT 02/18/17 Pantoprazole 20 Mg Tab20 Mg PO DAILY #30 TAB Ref 0 Prov:Gaston Whitaker 02/18/17 Hydrocodone-Acetaminophen (Lortab)10-325 Mg Tab1 Tab PO Q6HR PRN (PAIN) #0 TAB Ref 0 do not take this medicine if you will drive a car or use a machine, only use it when resting at home Prov:Gaston Whitaker 02/17/17 Budesonide-Formoterol Inh (Symbicort Inh)160-4.5 Mcg/Act Aero1 Puff INH Q12HR # 1 INHALER Ref 0 Prov:Nish Ken MD 01/19/17 Famotidine 20 Mg Tab20 Mg PO BID #60 TAB Ref 0 Prov:Nish Ken MD 01/19/17 Magnesium Hydroxide Liq (Milk of Magnesia Liq)400 Mg/5 Ml Susp30 Ml PO BID PRN ( INDIGESTION OR UPSET STOMACH) #1 BOTTLE Ref 0 Prov:Nish Ken MD 01/19/17 Alprazolam (Xanax)1 Mg Tab1 Mg PO BID PRN (ANXIETY) #14 TAB Ref 0 Prov:Nish Ken MD 01/19/17 Temazepam 30 Mg Cap30 Mg PO HS PRN (INSOMNIA) #7 CAP Ref 0 Prov:Nish Ken MD 01/19/17 Tamsulosin (Flomax)0.4 Mg Cap0.4 Mg PO BID #30 CAP Ref 0 Prov:Nish Ken MD 01/19/17 Amlodipine 5 Mg Tab5 Mg PO DAILY #30 TAB Ref 0 Prov:Nish Ken MD 01/19/17 Albuterol 6.7 GM Inh (Proventil Hfa 6.7 GM Inh)90 Mcg/Act Aer2 Puff INH Q6H PRN (SHORTNESS OF BREATH) #1 INHALER Ref 0 Prov:Nish Ken MD 01/19/17 Discontinued Reported Medications Promethazine 12.5 Mg Tab12.5 Mg PO Q6H PRN (NAUSEA OR VOMITING) Ref 0 01/13/17 Discontinued Scripts Permethrin Topical (Elimite Topical)5% Cream1 Applic TOPICAL ONCE #1 TUBE Ref 0 Prov:Kennedy Myers MD 01/28/17 Benzonatate (Tessalon Perles)100 Mg Kcv107 Mg PO TID PRN (COUGH) #27 CAP Prov:Nish Ken MD 01/19/17 Amoxicillin-Clavulanate 875-125 mg Dlh613 Mg PO BID #18 TAB Ref 0 not for use in CrCl <30 mL/minute Prov:Nish Ken MD 01/19/17 Prednisone 10 Mg Tab10 Mg PO DAILY #18 TAB Ref 0 Take 30mg daily for 3 days; 20mg daily for 3 days; 10mg daily for 3 days, then stop. Prov:Nish Ken MD 01/19/17 Hydrocodone-Acetaminophen (Lortab)10-325 Mg Tab1 Tab PO Q4H PRN (PAIN) #42 TAB Ref 0 do not take this medicine if you will drive a car or use a machine, only use it when resting at home Prov:Nish Ken MD 01/19/17 Aspirin (Aspirin Children's)81 Mg Chew81 Mg CHEW EVERY OTHER DAY #30 TAB Ref 0 Prov:Nish Ken MD 01/19/17 Pancrelipase (Zenpep)40,000-136,000-218,000 Units Cap1 Cap PO TIDPC #90 CAP Ref 0 Prov:Nish Ken MD 01/19/17 Metoprolol Succinate ER 24 HR 50 Mg Tab50 Mg PO BID #30 TAB Ref 0 Prov:Nish Ken MD 01/19/17 Current Medications Medications (Trade) Dose Ordered Sig/Juan José Route Start Time Stop Time Status Last Admin (Ativan) 1 mg Q6H PRN PO 02/18/17 18:00 02/19/17 08:49 (Ativan Inj) 1 mg Q6H PRN IM 02/18/17 18:00 (Tylenol) 650 mg Q6H PRN PO 02/18/17 18:00 (Symbicort 160-4.5 Inh) 1 puff Q12HR INH 02/18/17 21:00 02/19/17 08:46 (Ventolin Hfa Inh) 2 puff Q6H PRN INH 02/18/17 20:00 02/19/17 02:29 (Norvasc) 5 mg DAILY PO 02/19/17 09:00 02/19/17 08:48 (Pepcid) 20 mg BID PO 02/18/17 21:00 02/18/17 21:26 (Milk Of Magnesia Liq) 30 ml BID PRN PO 02/18/17 18:30 (Flomax) 0.4 mg BID PO 02/18/17 21:00 02/19/17 08:46 (Benadryl) 50 mg Q6H PRN PO 02/18/17 18:30 02/18/17 21:25 (Benadryl Inj) 50 mg Q6H PRN IM 02/18/17 18:30 (Mag-Al Plus Susp Liq) 30 ml Q6H PRN PO 02/18/17 18:30 (Milk Of Magnesia Liq) 30 ml DAILY PRN PO 02/18/17 18:30 (Protonix) 20 mg DAILY PO 02/19/17 09:45 02/19/17 09:45 (Creon 24-76-120) 2 cap TID PO 02/19/17 13:00 Family History Denies family history of mental illness. Social History Patient is reportedly unemployed. He receives Social Security disability. He has ongoing esophageal problems. He presents to the emergency department on multiple occasions, seeking narcotics. He has also been found paranoid by previous psychiatric providers. Patient's Strengths (min. 2) Resilient and has access to healthcare Physical Exam GENERAL: SKIN: Warm and dry. HEAD: Normocephalic. EYES: No scleral icterus. No injection or drainage. NECK: Supple, trachea midline. No JVD or lymphadenopathy. CARDIOVASCULAR: Regular rate and rhythm without murmurs, gallops, or rubs. RESPIRATORY: Breath sounds equal bilaterally. No accessory muscle use. GASTROINTESTINAL: Abdomen soft, non-tender, nondistended. MUSCULOSKELETAL: No cyanosis, or edema. BACK: Nontender without obvious deformity. No CVA tenderness. Vital Signs Vital Signs Date Time Temp Pulse Resp B/P Pulse Ox O2 Delivery O2 Flow Rate FiO2 02/19/17 05:32 99.7 77 18 106/55 95 Mental Status Examination Speech: Unremarkable Orientation: x3 Memory: Unremarkable Thought Process: Organized, Loose Association Thought Content: Paranoid Hallucination Type: None Attention and Concentration: Good Suicidal Ideation: No Previous Suicide Attempts: No Homicidal Ideation: No Previous Homicide Attempts: No Insight: Fair Judgment: Impulsive Affect: Irritable Affect if Inappropriate: Labile Mood: Anxious Motor Activity: Normal gait Assessment & Plan Problem List: (1) Brief psychotic disorder ICD Code: F23 Assessment & Plan Estimated LOS: days at the time of the patient's admission he was both psychotic and agitated with aggression towards ED staff. He was endangering his own safety by pulling out IVs lines and being combative. As he was evaluated by this physician to be both paranoid and loose, he was admitted for his own protection. He is either psychotic from the use of drugs or has an underlying psychiatric disorder. In either case, we will observe and evaluate him over the next 2-3 days. This physician has asked for a hospitalist consult because of the patient's history of esophageal disorder. We will also obtain CBC and comprehensive metabolic profile to rule out any infectious process or metabolic disorder of electrolytes that might be contributing or causing his psychosis. Likewise we will obtain his vitamin B-12 and vitamin D levels to ensure no vitamin deficiency is causing his psychosis. He will receive an EKG or serial EKGs to ensure psychotropic medicines are not causing conduction problems with his heart. Antipsychotic medication will be utilized if the patient becomes aggressive or does not clear from psychotic symptoms. It is anticipated he'll be in the hospital for 2-3 days if he clears. Lakhwinder Hodge MD Feb 19, 2017 11:46
--- NOTE | 2017-02-19 12:08 | PD.CONS ---
HPI Service [facility] Consult Requested By Psychiatry team Reason for Consult Medical management cardiac and respiratory issues Primary Care Physician Unknown Diagnoses: History of Present Illness Written by Rolando Madden, acting as scribe for Dr. Coreas on 02/19/17 at 11:54. This note was transcribed by desirae PATEL. I, Dr. Daniella Coreas personally performed the history, physical exam, and medical decision making; and confirmed the accuracy of the information in the transcribed note. Authenticated by Dr. Daniella Coreas on 02/19/17 at 11:54. Patient is a 62-year-old male with primary medical history of CHF, A. fib, CAD, GI bleed, who came into the hospital for complaints of black tarry stools. He was seen in CDU and was followed by GI who recommended no endoscopy or colonoscopy for the meantime since his blood count has been stable and actually is above than his previous results. He had EGD done last 12/26/16 results of gastritis, esophagitis, few small ulcers, status post APC, hiatal hernia. Colonoscopy was done 12/27/16 noted to have to AVM in the cecum, status post ablation diverticulosis polyps internal hemorrhoids were seen. Patient has been in and out of the ED for various complaints that appears to be somatic in nature. He is now admitted to inpatient psychiatry unit for further evaluation. Consulted for medical management. Patient seen and examined today. Reports he has black stools and he knows how to test it at home that the black stools turns pink. Also states that he has pleurisy but not short of breath this time. He appears to be upset. States that he does not want to take famotidine or pantoprazole that was recommended by the GI doctors because that's what causes " the chemical changes in my body that makes my stool dark." Denies abdominal pain or discomfort. Denies SOB/ dyspnea. Denies chest pain, palpitations, headaches, dizziness. Denies fevers, chills, n/v/d. Denies dysuria. Review of Systems Except as stated in HPI: all other systems reviewed are Neg Past Family Social History Allergies: Coded Allergies: Cardura (Verified Allergy, Severe, SOB,CHEST PAIN, 01/30/17) Cipro (Verified Allergy, Severe, RASH, SWOLLEN FACE, 01/30/17) Codeine (Verified Allergy, Severe, sob, 01/30/17) Imodium (Verified Allergy, Severe, rash, 01/30/17) BROKE OUT IN RASH, AND SWELLING AROUND NECK Nonsteroidal Anti-Inflammatory Agts (Verified Allergy, Severe, 01/30/17) Spironolactone (Verified Allergy, Severe, Bleeding, 01/30/17) Fentanyl (Verified Allergy, Intermediate, rash, 01/30/17) Contrast Media (Verified Adverse Reaction, Severe, BLISTERS AND EDEMA AT SITE, 02/19/17) IV CONTRAST DYE ONLY, PT IS NOT ALLERGIC TO ORAL CONTRAST PER REPORT Corticosteroids (Verified Adverse Reaction, Severe, HEART MURMUR, 01/30/17) MRI PRECAUTION (Verified Adverse Reaction, Severe, SHRAPNEL IN C-SPINE per Dr. Smart 10/26/04, 01/30/17) Uncoded Allergies: FENTYNAL (Allergy, Severe, RASH AND BLISTERS, 12/27/16) PER PATIENT Past Medical History CHF History of CVA, with right upper extremity spastic paresthesias Atrial fibrillation CAD History of GI bleed History of pneumonia, pleural effusions Past Surgical History Thoracotomy with decortication Rotator cuff repair Left hip surgery Abdominal exploratory lap Reported Medications Reported Meds & Active Scripts Active Metoprolol Succinate ER 24 HR (Metoprolol Succinate) 50 Mg Tab 50 Mg PO BID Zenpep (Pancrelipase) 40,000-136,000-218,000 Units Cap 1 Cap PO TIDPC Pantoprazole (Pantoprazole Sodium) 20 Mg Tab 20 Mg PO DAILY Lortab (Hydrocodone-Acetaminophen) 10-325 Mg Tab 1 Tab PO Q6HR PRN do not take this medicine if you will drive a car or use a machine, only use it when resting at home Symbicort Inh (Budesonide/Formoterol Fumarate) 160-4.5 Mcg/Act Aero 1 Puff INH Q12HR Famotidine 20 Mg Tab 20 Mg PO BID Milk of Magnesia Liq (Magnesium Hydroxide) 400 Mg/5 Ml Susp 30 Ml PO BID PRN Xanax (Alprazolam) 1 Mg Tab 1 Mg PO BID PRN Temazepam 30 Mg Cap 30 Mg PO HS PRN Flomax (Tamsulosin HCl) 0.4 Mg Cap 0.4 Mg PO BID Amlodipine (Amlodipine Besylate) 5 Mg Tab 5 Mg PO DAILY Proventil Hfa 6.7 GM Inh (Albuterol Sulfate) 90 Mcg/Act Aer 2 Puff INH Q6H PRN Active Ordered Medications Current Medications Medications (Trade) Dose Ordered Sig/Juan José Route Start Time Stop Time Status Last Admin (Ativan) 1 mg Q6H PRN PO 02/18/17 18:00 02/19/17 08:49 (Ativan Inj) 1 mg Q6H PRN IM 02/18/17 18:00 (Tylenol) 650 mg Q6H PRN PO 02/18/17 18:00 (Symbicort 160-4.5 Inh) 1 puff Q12HR INH 02/18/17 21:00 02/19/17 08:46 (Ventolin Hfa Inh) 2 puff Q6H PRN INH 02/18/17 20:00 02/19/17 02:29 (Norvasc) 5 mg DAILY PO 02/19/17 09:00 02/19/17 08:48 (Pepcid) 20 mg BID PO 02/18/17 21:00 02/18/17 21:26 (Milk Of Magnesia Liq) 30 ml BID PRN PO 02/18/17 18:30 (Flomax) 0.4 mg BID PO 02/18/17 21:00 02/19/17 08:46 (Benadryl) 50 mg Q6H PRN PO 02/18/17 18:30 02/18/17 21:25 (Benadryl Inj) 50 mg Q6H PRN IM 02/18/17 18:30 (Mag-Al Plus Susp Liq) 30 ml Q6H PRN PO 02/18/17 18:30 (Milk Of Magnesia Liq) 30 ml DAILY PRN PO 02/18/17 18:30 (Protonix) 20 mg DAILY PO 02/19/17 09:45 02/19/17 09:45 (Creon 24-76-120) 2 cap TID PO 02/19/17 13:00 Family History Mother had gallbladder problems Social History Denies alcohol use Tobacco use, occasionally states that he smokes 1-2 cigarettes on and off. Denies illicit drug use Physical Exam Vital Signs Vital Signs Date Time Temp Pulse Resp B/P Pulse Ox O2 Delivery O2 Flow Rate FiO2 02/19/17 05:32 99.7 77 18 106/55 95 02/18/17 16:00 97.5 77 18 124/62 99 Physical Exam GENERAL: This is a well-nourished, well-developed patient, in no apparent distress. SKIN: No rashes, ecchymoses or lesions. Cool and dry. HEAD: Atraumatic. Normocephalic. No temporal or scalp tenderness. EYES: Pupils equal round and reactive. Extraocular motions intact. No scleral icterus. No injection or drainage. ENT: Nose without bleeding. Throat without erythema. Uvula midline. Airway patent. NECK: Trachea midline. No JVD or lymphadenopathy. CARDIOVASCULAR: Regular rate and rhythm without murmurs, gallops, or rubs. RESPIRATORY: Clear to auscultation. Breath sounds equal bilaterally. No wheezes , rales, or rhonchi. GASTROINTESTINAL: Abdomen soft, non-tender, nondistended. No hepato-splenomegaly , or palpable masses. No guarding. MUSCULOSKELETAL: Extremities without clubbing, cyanosis, or edema. NEUROLOGICAL: Awake and alert. Motor and sensory grossly within normal limits. Normal speech. Laboratory Laboratory Tests Test 02/19/17 10:31 Sodium Level 136 Potassium Level 4.6 Chloride Level 106 Carbon Dioxide Level 21.1 Anion Gap 9 Blood Urea Nitrogen 20 Creatinine 0.85 Estimat Glomerular Filtration 110 Rate Random Glucose 102 Calcium Level 9.5 Total Bilirubin 0.4 Aspartate Amino Transf 21 (AST/SGOT) Alanine Aminotransferase 16 (ALT/SGPT) Alkaline Phosphatase 83 Total Protein 7.6 Albumin 3.4 Result Diagram: 02/19/17 1031 Assessment and Plan Problem List: (1) Hypertension ICD Code: I10 Status: Acute (2) HTN (hypertension) ICD Code: I10 Status: Chronic (3) Chronic pancreatitis ICD Code: K86.1 Status: Chronic (4) Coronary artery disease ICD Code: I25.10 Status: Acute (5) Acute gastritis without bleeding ICD Code: K29.00 Status: Acute Assessment and Plan Patient is a 62-year-old male with primary medical history of CHF, A. fib, CAD, GI bleed, who came into the hospital for complaints of black tarry stools. He was seen in CDU and was followed by GI who recommended no endoscopy or colonoscopy for the meantime since his blood count has been stable and actually is above than his previous results. He had EGD done last 12/26/16 results of gastritis, esophagitis, few small ulcers, status post APC, hiatal hernia. Colonoscopy was done 12/27/16 noted to have to AVM in the cecum, status post ablation diverticulosis polyps internal hemorrhoids were seen. Patient has been in and out of the ED for various complaints that appears to be somatic in nature. He is now admitted to inpatient psychiatry unit for further evaluation. Consulted for medical management. Paranoia/pressured speech/ somatic behavior - manipulative behavior as above vs underlying psychiatric etiology. Consult psych. Possible GI bleed: Complains of black tarry stool - He had recent admission with ablation of GI AVMs with Dr. Saenz. He had EGD done last 12/26/16 results of gastritis, esophagitis, few small ulcers, status post APC, hiatal hernia. Colonoscopy was done 12/27/16 noted to have to AVM in the cecum, status post ablation diverticulosis polyps internal hemorrhoids were seen. - Patient was resumed on famotidine and pantoprazole which he refuses to take. Discussed with patient importance of taking the medication and compliance. He is willing to try ranitidine instead of famotidine but will not take pantoprazole. - Will do ranitidine, continue with Creon - Trend CBC HTN - Continue home medication amlodipine 5 mg - Patient previously on metoprolol 50 mg twice a day, it was discontinued prior. We'll monitor BP trend off metoprolol. May restart if needed - Monitor BP trend COPD not in exacerbation - Continue with Ventolin when necessary, Symbicort twice a day - Monitor respiratory status DVT prophylaxis ambulatory Thank you for this consultation. We will follow patient with you. Code Status Full code Discussed Condition With Patient, nursing Rolando Young Feb 19, 2017 12:08 Daniella Coreas MD Feb 19, 2017 13:30
[2017-02-19] MEDS: LIPASE/PROTEASE/AMYLASE (24,000/76,000/120,000) CAP PO SCH ×2 (13:00→18:00)
[2017-02-19] MEDS ORDERED: DIATRIZOATE MEGLUM/DIATRIZOATE SOD 9 ML CUP PO ONE (15:30)
[2017-02-19 18:08] VITALS: BP 129/60; PULSE 79; RESP 18; TEMP 97.1; O2SAT 97
[2017-02-19 18:09] LABS: HEMATOCRIT 36.9 % (39.0-51.0); MEAN CELL VOLUME 86.5 FL (80.0-100.0); MEAN CORPUSCULAR HEMOGLOBIN 27.3 PG (27.0-34.0); MEAN CORPUSCULAR HGB CONC 31.5 % (32.0-36.0); PLATELET COUNT 333 TH/MM3 (150-450); RED BLOOD COUNT 4.27 MIL/MM3 (4.50-5.90); RED CELL DISTRIBUTION WIDTH 17.1 % (11.6-17.2); REVIEW FLAG FINAL; WHITE BLOOD COUNT 6.6 TH/MM3 (4.0-11.0)
--- NOTE | 2017-02-19 19:00 | RADRPT ---
EXAM DATE/TIME: 02/19/2017 18:25 [facility] COMPARISON: CT ABDOMEN & PELVIS W/O CONTRAST, January 03, 2017, 17:59. INDICATIONS : Abdomen pain. ORAL CONTRAST: Prescribed oral contrast ingested. RADIATION DOSE: 9.96 CTDIvol (mGy) MEDICAL HISTORY : Carcinoma, prostate. Hypertension. Gastroesophageal reflux disease. SURGICAL HISTORY : Lobectomy. Cholecystectomy. ENCOUNTER: Initial ACUITY: 1 day PAIN SCALE: 5/10 LOCATION: Bilateral abdomen. TECHNIQUE: Volumetric scanning of the abdomen and pelvis was performed. Using automated exposure control and ad justment of the mA and/or kV according to patient size, radiation dose was kept as low as reasonably achievable to obtain optimal diagnostic quality images. DICOM format image data is available electro nically for review and comparison. FINDINGS: Lung bases are clear. Stable small pericardial effusion compared with January 03. No acute findings in the liver, spleen, adrenals, kidneys or pancreas. Calcifications in the pancreat ic head are stable. Previous cholecystectomy. No free fluid or free air. No bowel obstruction. Stable left-sided bladder diverticulum. Previous bladder wall thickening and stranding has resolved. Previous left hip replacement. CONCLUSION: 1. Stable left-sided bladder diverticulum since January 03. No bladder wall thickening seen on the curren t exam. 2. Stable small pericardial effusion. 3. Stable pancreatic calcifications. Akira Mari MD on February 19, 2017 at 18:55 Board Certified Radiologist. This report was verified electronically.
[2017-02-19] MEDS: diphenhydrAMINE HCL 50 MG CAP PO PRN (22:27)
[2017-02-20] MEDS: ALBUTEROL SULFATE 90 MCG/ACT HFA 18 GM INHALER INH PRN ×2 (01:41→20:46)
[2017-02-20 05:52] VITALS: BP 118/59; PULSE 75; RESP 17; TEMP 99; O2SAT 96
[2017-02-20] MEDS: LORazepam 1 MG TAB PO PRN ×2 (07:54→20:45)
[2017-02-20] MEDS: amLODIPine BESYLATE 5 MG TAB PO SCH (07:54)
[2017-02-20] MEDS: TAMSULOSIN HCL 0.4 MG CAP PO SCH ×2 (07:54→20:45)
[2017-02-20] MEDS: PANTOPRAZOLE SOD 20 MG DELAYED RELEASE TAB PO SCH (07:54)
[2017-02-20] MEDS: BUDESONIDE-FORMOTEROL 160/4.5 MCG INHALER INH SCH ×2 (07:55→20:45)
[2017-02-20] MEDS: ACETAMINOPHEN 325 MG TAB PO PRN ×2 (07:55→18:28)
[2017-02-20] MEDS: LIPASE/PROTEASE/AMYLASE (24,000/76,000/120,000) CAP PO SCH ×3 (08:05→18:28)
[2017-02-20] MEDS: FAMOTIDINE 20 MG TAB PO SCH ×2 (08:06→20:45)
--- NOTE | 2017-02-20 10:33 | HHI.PYPN ---
Subjective Remarks Patient more calm and cooperative today. Still has minimum insight and does not understand why he is in the hospital. He remains paranoid that others are trying to harm him. He is also drug seeking and wants the 10 mg pills of Percocet. He is being evaluated by the hospitalist for gastrointestinal procedure today. Review of Systems Except as stated in HPI: all other systems reviewed are Neg Gastrointestinal: COMPLAINS OF: Difficulty Swallowing Objective Alert: Yes [place]: Person, Place, Date, Situation Mood: Calm Affect: Euthymic Memory Intact: Immediate, Recent, Remote Hallucinations: Other Delusions: Yes Delusion Type: Paranoid Suicidal: Ideation (no) Homicidal: Ideation (no) Insight/Judgment Impaired Labs Test 02/19/17 02/19/17 10:31 16:10 Sodium Level 136 MEQ/L Potassium Level 4.6 MEQ/L Chloride Level 106 MEQ/L Carbon Dioxide Level 21.1 MEQ/L Anion Gap 9 MEQ/L Blood Urea Nitrogen 20 MG/DL Creatinine 0.85 MG/DL Estimat Glomerular Filtration 110 ML/MIN Rate Random Glucose 102 MG/DL Calcium Level 9.5 MG/DL Total Bilirubin 0.4 MG/DL Aspartate Amino Transf 21 U/L (AST/SGOT) Alanine Aminotransferase 16 U/L (ALT/SGPT) Alkaline Phosphatase 83 U/L Total Protein 7.6 GM/DL Albumin 3.4 GM/DL White Blood Count 6.6 TH/MM3 Red Blood Count 4.27 MIL/MM3 Hemoglobin 11.6 GM/DL Hematocrit 36.9 % Mean Corpuscular Volume 86.5 FL Mean Corpuscular Hemoglobin 27.3 PG Mean Corpuscular Hemoglobin 31.5 % Concent Red Cell Distribution Width 17.1 % Platelet Count 333 TH/MM3 Mean Platelet Volume 8.6 FL Vitals/IOs Vital Signs Date Time Temp Pulse Resp B/P Pulse Ox O2 Delivery O2 Flow Rate FiO2 02/20/17 05:52 99.0 75 17 118/59 96 Assessment & Plan Problem List: (1) Brief psychotic disorder ICD Code: F23 Assessment & Plan Estimated LOS: days will start antipsychotic medication at low dose. Hopefully patient will take medication this evening and be more clear for possible discharge tomorrow. Justification for Cont. Inpt. Psychotic and unable to care for himself with significant physical problems. Lakhwinder Hodge MD Feb 20, 2017 10:33
[2017-02-20] MEDS ORDERED: FAMOTIDINE 20 MG/2 ML VIAL ONE (14:06)
[2017-02-20] MEDS ORDERED: SIMETHICONE SUSP DROPS 40 MG/0.6 ML 30 ML BTL ONE (14:21)
[2017-02-20] MEDS ORDERED: GLUCAGON 1 MG/ML VIAL IV PUSH ONE (14:21)
[2017-02-20] MEDS ORDERED: PROPOFOL 200 MG/20 ML AMP IV PUSH ONE (14:39)
--- NOTE | 2017-02-20 14:53 | HHI.GIFU ---
Subjective Remarks Immediate postop note: EGD with ablation of AVMs with biopsy with dilatation of esophagus over guidewire Indication: dysphagia and melena Meds: MAC Findings: Esophagus normal. Dilated with 18mm dilator over guidewire. Relook of esophagus after dilatation normal Stomach: mild gastritis. Duodenum: multiple AVMs in the descending duodenum. All visible avms were ablated. One began to bleed actively but stopped prior to ending the procedure. Objective Vitals I&O Vital Signs Date Time Temp Pulse Resp B/P Pulse Ox O2 Delivery O2 Flow Rate FiO2 02/20/17 05:52 99.0 75 17 118/59 96 02/19/17 18:08 97.1 79 18 129/60 97 Laboratory Laboratory Tests Test 02/19/17 16:10 White Blood Count 6.6 Red Blood Count 4.27 Hemoglobin 11.6 Hematocrit 36.9 Mean Corpuscular Volume 86.5 Mean Corpuscular Hemoglobin 27.3 Mean Corpuscular Hemoglobin 31.5 Concent Red Cell Distribution Width 17.1 Platelet Count 333 Mean Platelet Volume 8.6 Physical Exam HEENT: Pupils round and reactive to light; normocephalic; atraumatic; no jaundice. Throat is clear. NECK: Neck is supple, no JVD, no lymphadenopathy. CHEST: Chest is clear to auscultation and percussion. CARDIAC: Regular rate and rhythm with no murmur gallop or rubs. ABDOMEN: Soft, nondistended, nontender; no hepatosplenomegaly; bowel sounds are present in all four quadrants. EXTREMITIES: No clubbing, cyanosis, or edema. SKIN: Normal; no rash; no jaundice. SUPER[employer]OR [employer]IGHT ATTENDANT: No focal deficits; alert and oriented times three. Assessment and Plan Plan Impression: Dysphagia, s/p esophageal dilatation. Gastritis, antral gastric ulcer. Biopsy taken from antrum Duodenal AVMs, multiple. Ablated Rec: PPI daily AC. Await biopsy result for H Pylori. Regular diet. Stable for outpatient treatment from GI standpoint. Aashish Jerez MD Feb 20, 2017 14:53
[2017-02-20 16:57] VITALS: BP 143/73; PULSE 68; RESP 18; TEMP 96.8
[2017-02-20] MEDS: diphenhydrAMINE HCL 50 MG CAP PO PRN (20:45)
[2017-02-20] MEDS ORDERED: OLANZapine 2.5 MG TAB PO SCH (21:00)
[2017-02-20] MEDS ORDERED: ACETAMINOPHEN/HYDROcodone 325 MG/5 MG TAB PO ONE (22:45)
[2017-02-21 06:26] VITALS: BP 118/57; PULSE 79; RESP 20; TEMP 97.6; O2SAT 96
[2017-02-21] MEDS: TAMSULOSIN HCL 0.4 MG CAP PO SCH (08:49)
[2017-02-21] MEDS: BUDESONIDE-FORMOTEROL 160/4.5 MCG INHALER INH SCH (08:49)
[2017-02-21] MEDS: LIPASE/PROTEASE/AMYLASE (24,000/76,000/120,000) CAP PO SCH ×2 (08:49→13:15)
[2017-02-21] MEDS: ACETAMINOPHEN 325 MG TAB PO PRN (08:51)
[2017-02-21] MEDS: amLODIPine BESYLATE 5 MG TAB PO SCH (08:54)
[2017-02-21] MEDS: FAMOTIDINE 20 MG TAB PO SCH (08:54)
[2017-02-21] MEDS ORDERED: PANTOPRAZOLE SOD 40 MG DELAYED RELEASE TAB PO SCH (09:00)
[2017-02-21] MEDS ORDERED: PANT40TA3 PO (11:59)
[2017-02-21] MEDS ORDERED: CREON24 PO (11:59)
[2017-02-21] MEDS ORDERED: AMLO5 PO (11:59)
[2017-02-21] MEDS ORDERED: FAMO20TA2 PO (11:59)
[2017-02-21] MEDS ORDERED: VENTAER INH (11:59)
[2017-02-21] MEDS ORDERED: SYMB160A INH (11:59)
[2017-02-21] MEDS ORDERED: OLAN2.5T PO (11:59)
[2017-02-21] MEDS ORDERED: TAMS5CAP PO (11:59)
--- NOTE | 2017-02-21 12:04 | HHI.DS ---
Psychiatry Discharge Summary Inpatient Psychiatric care?: Yes Advance Directive: No Reason Not Provided: DID NOT PROVIDE Mental Health AdvanceDirective: No Health Care Proxy: No Admission Admission Date Feb 18, 2017 at 16:07 Admission Diagnosis: (1) Brief psychotic disorder ICD Code: F23 Brief History Patient seen by this physician in the emergency department. Also seen on the 2700 unit. Spoke to the patient's nurse regarding his behavior. He is delusional with paranoid ideation, ideas of reference, and disoriented to situation. He demonstrates looseness of associations and contradicts himself. At one point he suggested his was outside the emergency department and at another point he indicated she was . He also reported there was a couple living in the hospital who are persecuting him. When this physician confronted the patient about his contradictory and incoherent remarks, he reported he was simply joking. This physician found his past treatment history at [facility] and noted approximately 17 visits. Apparently he has been seen by psychiatry and noted to have drug-seeking behavior, paranoia, agitation and may delusional claims. Tobacco Use In Past 30 Days: 4 or Less Cigarettes/Day Alcohol Use: Never Hospital Course Patient observed and evaluated over the short course of this admission. He maintained his ability to live independently. He was not found to be suicidal or homicidal throughout the hospital course but he did continue to exhibit loose associations. Results Blood Pressure 118 / 57 Vital Signs Date Time Temp Pulse Resp B/P Pulse Ox O2 Delivery O2 Flow Rate FiO2 02/21/17 06:26 97.6 79 20 118/57 96 Laboratory Tests Test 02/19/17 02/19/17 10:31 16:10 Blood Urea Nitrogen 20 MG/DL (7-18) Red Blood Count 4.27 MIL/MM3 (4.50-5.90) Hemoglobin 11.6 GM/DL (13.0-17.0) Hematocrit 36.9 % (39.0-51.0) Mean Corpuscular Hemoglobin 31.5 % Concent (32.0-36.0) Summary of Procedures None Imaging Last Impressions Abdomen/Pelvis CT 02/19/17 0000 Signed Impressions: Service Date/Time: Sunday, February 19, 2017 18:25 - CONCLUSION: 1. Stable left-sided bladder diverticulum since January 03. No bladder wall thickening seen on the current exam. 2. Stable small pericardial effusion. 3. Stable pancreatic calcifications. Akira Mari MD Pending results at discharge: No Medications # of Antipsychotic meds at D/C: 1 Appropriate >1 Antipsych meds?: 1 Approp Antipsych med options 1 - Minimum of three failed multiple trials of monotherapy. 2 - Documented plan to taper to monotherapy due to previous use of multiple meds OR cross-taper in progress at D/C. 3 - Documentation of augmentation of Clozapine. 4 - Justification other than those listed in allowable values 1-3, document here : Discharge Discharge Date: Feb 21, 2017 Discharge Diagnosis: (1) Brief psychotic disorder Diagnosis: Principal ICD Code: F23 Mental Status Exam at Disch At the time of hospitalization and at the time of discharge, the patient demonstrated loose associations. However, he was competent to verbally contract for safety and he did so repeatedly. He was however noted to be drug seeking throughout the hospitalization. Pt Condition on Discharge: Stable Discharge Disposition: Discharge Home Discharge Instructions Diet Instructions: As Tolerated, No Restrictions Activities you can perform: Regular-No Restrictions Scheduled Appointment: [facility] Discharge Time <= 30 minutes Discharge/Advance Care Plan Health Problems: (1) Brief psychotic disorder Goals to promote your health * To prevent worsening of your condition and complications * To maintain your health at the optimal level Directions to meet your goals Take your medications as prescribed Follow your dietary instruction Follow activity as directed Keep your appointments as scheduled Take your immunizations and boosters as scheduled If your symptoms worsen call your PCP, if no PCP go to Urgent Care Center or Emergency Room For 13/03 questions related to your inpatient stay or results of tests pending at discharge, please contact Dr. Lakhwinder Hodge at Smoking is Dangerous to Your Health. Avoid second hand smoking Lakhwinder Hodge MD Feb 21, 2017 12:04
--- NOTE | 2017-02-21 19:02 | MR ---
cc: MARGIE HODGE M.D., HAROLD H. MD DATE OF SURGERY 02/20/2017 PROCEDURE Esophagogastroduodenoscopy with ablation of AVMs and with biopsy with dilatation of the esophagus over guidewire. INDICATION Dysphagia and melena. REFERRING PHYSICIAN Dr. Hodge. PROCEDURE After informed consent was obtained the patient was placed in the left side down position. He was sedated by the anesthesia service. After adequate sedation was achieved the Pentax video gastroscope was inserted in the oropharynx and advanced to the esophagus, stomach and duodenum. Multiple AVMs were visible in the duodenum. Therefore, the patient was given glucagon 0.5 milligrams and Mylicon was washed into the duodenum to improve visability. Using the bipolar cautery probe all the visible AVMs were ablated, probably 10 or more in total. One of them began to bleed actively but stopped prior to finishing the procedure. The scope was then withdrawn into the gastric antrum and biopsies were obtained there for gastritis. A retroflexed exam was performed in the fundus and cardia. The scope was then straightened and the guidewire was left in place in the gastric antrum. Over the guidewire an 18 mm savory dilator was passed down through the esophagus and into the stomach. The dilator and guidewire were then removed. A relook examination was performed and there was no evidence of complication. The scope was then withdrawn and the procedure was terminated. He tolerated the procedure well and was returned to the recovery area in good condition. FINDINGS 1. The esophagus was normal. It was dilated with an 18 mm dilator over guidewire as described above and there was no apparent complication. There was no blood elicited. 2. In the stomach there was mild gastritis. There was also a small benign-appearing ulcer in the antrum at the 3 o'clock position. A biopsy was obtained in the stomach antrum for histology. 3. The duodenum showed multiple AVMs in the descending duodenum. All the visible AVMs were ablated, one began to bleed actively but stopped prior to ending the procedure. IMPRESSION 1. Dysphagia without apparent esophageal stricture. 2. Gastritis and antral gastric ulcer, biopsy taken from the antrum. 3. Duodenal AVMs, multiple, at least 10. These were all ablated with the bipolar cautery. RECOMMENDATIONS 1. The patient to take proton pump inhibitor daily to help heal up his ulcer. 2. Await the biopsy result from the gastric antrum for H. pylori. 3. Regular diet. 4. He is now stable for outpatient treatment from GI standpoint. Aashish Jerez MD HHS/EO /3:05 PM /6:48 PM
[2017-02-22] MEDS ORDERED: predniSONE 20 MG TAB PO SCH (09:00)
[2017-02-25] MEDS ORDERED: predniSONE 10 MG TAB PO SCH (09:00)
== END 2017-02-21 13:15 | disposition home or self-care (01) | DRG 885 ==
LOC: H270 16:07 → H260 02-20 13:15
PROVIDERS: ADMIT Psychiatry & Neurology Psychiatry; ATTEND Psychiatry & Neurology Psychiatry
PROC: 0D758ZZ Dilation of Esophagus, Via Natural or Artificial Opening Endoscopic (ICD-10-PCS; 2017-02-20)
PROC: 0DB68ZX Excision of Stomach, Via Natural or Artificial Opening Endoscopic, Diagnostic (ICD-10-PCS; 2017-02-20)
PROC: 0D598ZZ Destruction of Duodenum, Via Natural or Artificial Opening Endoscopic (ICD-10-PCS; principal; 2017-02-20 14:00)
DX: F23 Brief psychotic disorder (principal); I11.0 Hypertensive heart disease with heart failure; I50.9 Heart failure, unspecified; K92.1 Melena; R13.10 Dysphagia, unspecified; Z78.1 Physical restraint status; Q27.33 Arteriovenous malformation of digestive system vessel; K25.9 Gastric ulcer, unspecified as acute or chronic, without hemorrhage or perforation; J44.9 Chronic obstructive pulmonary disease, unspecified; I25.10 Atherosclerotic heart disease of native coronary artery without angina pectoris; R20.8 Other disturbances of skin sensation; K29.70 Gastritis, unspecified, without bleeding; F17.210 Nicotine dependence, cigarettes, uncomplicated; Z79.899 Other long term (current) drug therapy; I69.998 Other sequelae following unspecified cerebrovascular disease; Z87.01 Personal history of pneumonia (recurrent)
CPT/HCPCS: 70450; 71010; 74176; 76937; 80048; 80053; 80307; 81001; 82550; 82552; 83690; 83735; 84443; 84484; 85025; 85027; 85610; 85730; 88305; 88312; 93005; C1769; C9113; J1610; J1630; J2270; J2405; J7030; J7512; Q0163; Q9963

== ENCOUNTER 2017-02-26 16:25 | Observation (INO) | payer MEDICAID ==
[~2017-02-26] VITALS: Ht 177.8 cm; Wt 70.0 kg
[~2017-02-26 16:25] MED LIST changes: +AMLO5 PO; +CREON24 PO; +METO50TA11 PO; +OLAN2.5T PO; +PANC1CAP9 PO; +PANT40TA3 PO; +VENTAER INH
[2017-02-26 16:27] VITALS: BP 136/87; PULSE 90; RESP 18; TEMP 98.2; O2SAT 98
[2017-02-26] MEDS ORDERED: ASPIRIN 81 MG CHEW TAB PO ONE (18:45)
[2017-02-26] MEDS ORDERED: SODIUM CHLORIDE 0.9% FLUSH 10 ML FLUSH IVF PRN (18:45)
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
[2017-02-26 19:03] VITALS: O2SAT 98
--- NOTE | 2017-02-26 19:11 | RADRPT ---
EXAM DATE/TIME: 02/26/2017 18:47 [facility] COMPARISON: No previous studies available for comparison. INDICATIONS : Left foot pain with abrasion anterior proximal. Denies injury MEDICAL HISTORY : Cerebrovascular disease. Carcinoma, prostate SURGICAL HISTORY : None. ENCOUNTER: Initial ACUITY: 1 week PAIN SCORE: 9/10 LOCATION: Left Foot FINDINGS: Three view examination of the left foot demonstrates no acute fracture or malalignment. There is mild soft tissue prominence over the dorsum of the midfoot and ankle. The tarsal bones appear intact. Th e interphalangeal and metatarsophalangeal joints are intact. The calcaneus is intact. There is a sma ll spur off the inferior calcaneus. Bony mineralization is normal. CONCLUSION: 1. Mild soft tissue swelling with no acute fracture or malalignment. 2. Small spur off the inferior calcaneus. Bala Franco MD on February 26, 2017 at 19:08 Board Certified Radiologist. This report was verified electronically.
[2017-02-26 19:46] VITALS: BP 137/80; PULSE 67; RESP 18; O2SAT 100
[2017-02-26 19:56] LABS: APTT (PATIENT) 27.6 SEC (24.3-30.1); INTERNATIONAL NORMALIZED RATIO 0.9 RATIO; PROTHROMBIN TIME - PATIENT 10.4 SEC (9.8-11.6)
[2017-02-26 20:06] LABS: ANION GAP 8 MEQ/L (5-15); AST (GOT) 11 U/L (15-37); BICARBONATE 26.4 MEQ/L (21.0-32.0); BLOOD UREA NITROGEN 16 MG/DL (7-18); BLOOD, URINE NEG (NEG); CHLORIDE 106 MEQ/L (98-107); COMMENT (UR) CULT NOT INDICATED; CULTURE IF INDICATED CULT NOT INDICATED; GLOMERULAR FILTRATION RATE 101 ML/MIN (>89); GLUCOSE,URINE NEG (NEG); KETONE, URINE NEG (NEG); MAGNESIUM 2.3 MG/DL (1.5-2.5); MUCUS URINE FEW /lpf (OCC); NITRITE,URINE NEG (NEG); PH, URINE 6.5 (5.0-8.5); POTASSIUM 3.7 MEQ/L (3.5-5.1); SODIUM (NA) 140 MEQ/L (136-145); SQUAMOUS EPITHELIAL CELL URINE <1 /hpf (0-5); URINE COLOR YELLOW (YELLW/STRAW)
[2017-02-26 20:09] LABS: ALKALINE PHOSPHATASE 101 U/L (45-117); ALT (GPT) 18 U/L (12-78); TOTAL BILIRUBIN ADULT 0.3 MG/DL (0.2-1.0)
[2017-02-26] MEDS ORDERED: NITROGLYCERIN 0.4 MG SL 25 TABS/BTL SL ONE (20:30)
[2017-02-26 20:42] LABS: BASOPHIL # 0.1 TH/MM3 (0-0.2); BASOPHIL % 1.1 % (0.0-2.0); EOSINOPHIL # 0.3 TH/MM3 (0-0.4); HEMATOCRIT 37.9 % (39.0-51.0); HEMO FLAGS DIFF FINAL; LYMPH % 36.1 % (9.0-44.0); LYMPHOCYTE # 2.2 TH/MM3 (1.0-4.8); MEAN CELL VOLUME 86.7 FL (80.0-100.0); MEAN CORPUSCULAR HEMOGLOBIN 27.8 PG (27.0-34.0); MEAN CORPUSCULAR HGB CONC 32.1 % (32.0-36.0); MONO % 7.3 % (0.0-8.0); NEUT % 50.5 % (16.0-70.0); PLATELET COUNT 341 TH/MM3 (150-450); RED BLOOD COUNT 4.37 MIL/MM3 (4.50-5.90); RED CELL DISTRIBUTION WIDTH 16.6 % (11.6-17.2)
[2017-02-26 20:44] LABS: CREATINE KINASE 166 U/L (39-308)
[2017-02-26] MEDS ORDERED: MORPHINE SULFATE 4 MG/ML INJ IV PUSH ONE (21:00)
[2017-02-26] MEDS ORDERED: SODIUM CHLORIDE 0.9% FLUSH 10 ML FLUSH IV FLUSH PRN (21:15)
[2017-02-26] MEDS ORDERED: ACETAMINOPHEN 500 MG CPLT PO PRN (21:15)
[2017-02-26 21:21] VITALS: O2SAT 98
[2017-02-26 21:44] VITALS: BP 119/76; PULSE 64; RESP 18; O2SAT 99
[2017-02-26] MEDS ORDERED: MORPHINE SULFATE 8 MG/ML INJ IV PUSH ONE (23:45)
[2017-02-27] VITALS (12 sets, daily range): BP systolic 105–136; BP diastolic 58–84; PULSE 61–72; RESP 16–20; TEMP 97.4–98; O2SAT 95–98
[2017-02-27 01:56] LABS: CREATINE KINASE 140 U/L (39-308)
[2017-02-27 02:08] LABS: CKMB 1.5 NG/ML (0.5-3.6)
[2017-02-27] MEDS: MORPHINE SULFATE 8 MG/ML INJ IV PUSH PRN ×2 (04:01→12:16)
[2017-02-27] MEDS: ONDANSETRON HCL 4 MG/2 ML VIAL IV PRN (07:09)
--- NOTE | 2017-02-27 08:00 | EKG ---
Date Performed: 02/26/2017 Time Performed: 23:59:58 PTAGE: 62 years EKG: Sinus rhythm NORMAL ECG PREVIOUS TRACING : 02/26/2017 16.50 Since previous tracing, no significant change noted DOCTOR: Nazario Hernandez Interpretating Date/Time 02/27/2017 07:59:55
--- NOTE | 2017-02-27 08:01 | EKG ---
Date Performed: 02/26/2017 Time Performed: 16:50:03 PTAGE: 62 years EKG: Sinus rhythm NORMAL ECG PREVIOUS TRACING : 02/17/2017 01.37 Since previous tracing, no significant change noted DOCTOR: Nazario Hernandez Interpretating Date/Time 02/27/2017 08:00:31
--- NOTE | 2017-02-27 08:02 | EKG ---
Date Performed: 02/27/2017 Time Performed: 03:27:03 PTAGE: 62 years EKG: SINUS BRADYCARDIA BORDERLINE ECG PREVIOUS TRACING : 02/26/2017 23.59 Since previous tracing, no significant change noted DOCTOR: Nazario Hernandez Interpretating Date/Time 03/01/2017 06:45:43
[2017-02-27] MEDS ORDERED: HYDR25TA5 PO (08:12)
[2017-02-27] MEDS ORDERED: SUCRALFATE 1 GM TAB PO ONE (08:30)
--- NOTE | 2017-02-27 08:31 | HHI.HP ---
HPI Primary Care Physician No Primary Care Physician Chief Complaint Chest pain History of Present Illness Is is a 62-year-old male that presents to the ED with a complaint of a chest discomfort that began 2 days ago. He states is not unusual for him to get a chest discomfort. He states he has this 2-3 times a week but we easily take an aspirin will go away quickly. He tried aspirin when it began and it did not improve the symptoms. He tried again yesterday morning which also did not improve the symptoms. He decided to come in yesterday afternoon as the symptoms persisted. The discomfort is currently present but has improved with morphine. In the ER note and stated that he was complaining of abdominal pain and foot pain but he is not complaining about at this time. He states he rode a bicycle about 4 mild yesterday which did not worsen the symptoms. Review of Systems General: Patient denies fevers, chills recent, and recent travel HEENT: Patient denies headache, sore throat, difficulty swallowing. Cardiovascular: Has the chest discomfort as mentioned above. Denies sensation of heart beating rapidly or irregularly. No syncope. Denies diaphoresis. Respiratory: Occasional shortness of breath. Denies inspirational chest discomfort. Denies coughing wheezing or hemoptysis. GI: Patient denies nausea, vomiting, diarrhea, abdominal pain, bloody stools. Musculoskeletal: Patient denies joint pain or edema. Denies calf pain or edema. Neurovascular: Patient denies numbness, tingling, weakness in extremities. Denies headache. Endocrine: Denies polyuria and polydipsia. Hematologic: Denies easy bruising. Skin: Denies rash or itching. Past Family Social History Allergies: Coded Allergies: Cardura (Verified Allergy, Severe, SOB,CHEST PAIN, 02/26/17) Cipro (Verified Allergy, Severe, RASH, SWOLLEN FACE, 02/26/17) Codeine (Verified Allergy, Severe, sob, 02/26/17) Imodium (Verified Allergy, Severe, rash, 02/26/17) BROKE OUT IN RASH, AND SWELLING AROUND NECK Nonsteroidal Anti-Inflammatory Agts (Verified Allergy, Severe, 02/26/17) Spironolactone (Verified Allergy, Severe, Bleeding, 02/26/17) Fentanyl (Verified Allergy, Intermediate, rash, 02/26/17) Contrast Media (Verified Adverse Reaction, Severe, BLISTERS AND EDEMA AT SITE, 02/26/17) IV CONTRAST DYE ONLY, PT IS NOT ALLERGIC TO ORAL CONTRAST PER REPORT Corticosteroids (Verified Adverse Reaction, Severe, HEART MURMUR, 02/26/17) MRI PRECAUTION (Verified Adverse Reaction, Severe, SHRAPNEL IN C-SPINE per Dr. Smart 10/26/04, 02/26/17) Uncoded Allergies: FENTYNAL (Allergy, Severe, RASH AND BLISTERS, 12/27/16) PER PATIENT Past Medical History Hypertension, BPH, GI bleed, COPD, chronic pancreatitis, prostate cancer status post radiation therapy, history of a right thoracotomy with decortication secondary to empyema 2014. Denies diabetes, hyperlipidemia, and known CAD. Past Surgical History Right thoracotomy with decortication secondary to empyema in 2014. Prostate surgery. Left hip, left rotator cuff, and cholecystectomy. Reported Medications Reported Meds & Active Scripts Active Flomax (Tamsulosin HCl) 0.4 Mg Cap 0.4 Mg PO BID Norvasc (Amlodipine Besylate) 5 Mg Tab 5 Mg PO DAILY Ventolin Hfa 18 GM Inh (Albuterol Sulfate) 90 Mcg/Act Aer 2 Puff INH Q6H PRN Metoprolol Succinate ER 24 HR (Metoprolol Succinate) 50 Mg Tab 50 Mg PO BID Zenpep (Pancrelipase) 40,000-136,000-218,000 Units Cap 1 Cap PO TIDPC Lortab (Hydrocodone-Acetaminophen) 10-325 Mg Tab 1 Tab PO Q6HR PRN do not take this medicine if you will drive a car or use a machine, only use it when resting at home Symbicort Inh (Budesonide/Formoterol Fumarate) 160-4.5 Mcg/Act Aero 1 Puff INH Q12HR Milk of Magnesia Liq (Magnesium Hydroxide) 400 Mg/5 Ml Susp 30 Ml PO BID PRN Xanax (Alprazolam) 1 Mg Tab 1 Mg PO BID PRN Temazepam 30 Mg Cap 30 Mg PO HS PRN Proventil Hfa 6.7 GM Inh (Albuterol Sulfate) 90 Mcg/Act Aer 2 Puff INH Q6H PRN Reported Hydrochlorothiazide 25 Mg Tab 25 Mg PO DAILY Active Ordered Medications Current Medications Medications (Trade) Dose Ordered Sig/Juan José Route Start Time Stop Time Status Last Admin (NS Flush) 2 ml UNSCH PRN IV FLUSH 02/26/17 21:15 (NS Flush) 2 ml BID IV FLUSH 02/27/17 09:00 (Tylenol) 500 mg Q4H PRN PO 02/26/17 21:15 (Zofran Inj) 4 mg Q6H PRN IV 02/26/17 21:15 02/27/17 07:09 (Morphine Inj) 2 mg Q4H PRN IV PUSH 02/26/17 23:45 02/27/17 18:00 02/27/17 04:01 (Carafate) 1 gm ONCE ONCE PO 02/27/17 08:00 02/27/17 08:01 UNV (Xanax) 1 mg BID PRN PO 02/27/17 08:00 UNV (Norvasc) 5 mg DAILY PO 02/27/17 09:00 UNV (Toprol Xl) 50 mg BID PO 02/27/17 09:00 UNV (Flomax) 0.4 mg BID PO 02/27/17 09:00 UNV Non-Formulary Medication 1 cap TIDPC PO 02/27/17 09:30 UNV (Hydrodiuril) 25 mg DAILY PO 02/27/17 09:00 UNV (Restoril) 30 mg HS PRN PO 02/27/17 08:30 UNV Family History Is not aware of his family medical history. Social History Patient states that he smokes a couple cigarettes a day. Denies alcohol or illicit drugs. Physical Exam Vital Signs Vital Signs Date Time Temp Pulse Resp B/P Pulse Ox O2 Delivery O2 Flow Rate FiO2 02/27/17 07:24 95 21 02/27/17 07:11 97.6 64 16 136/58 96 02/27/17 04:06 16 02/27/17 03:31 97.4 62 18 115/68 98 02/27/17 01:44 62 02/27/17 00:11 97.7 63 18 133/84 98 02/27/17 00:01 16 02/26/17 21:44 64 18 119/76 99 Room Air 02/26/17 21:21 98 02/26/17 20:15 98 Room Air 02/26/17 19:46 67 18 137/80 100 Room Air 02/26/17 19:44 75 18 100 Room Air 02/26/17 19:03 98 02/26/17 16:27 98.2 90 18 136/87 98 Room Air Physical Exam GENERAL: This is a well-nourished, well-developed patient, in no apparent distress. Patient speaks in clear complete sentences. Patient is pleasant. HEENT: Head is atraumatic and normocephalic. Neck is supple without lymphadenopathy and trachea is midline. No JVD or carotid bruits. CARDIOVASCULAR: Regular rate and rhythm without murmurs, gallops, or rubs. RESPIRATORY: Clear to auscultation. Breath sounds equal bilaterally. No wheezes , rales, or rhonchi. Chest wall is nontender. No use of accessory muscles. GASTROINTESTINAL: Abdomen is nontender, nondistended. Abdomen soft. No obvious pulsatile mass or bruit. No CVA tenderness. Strong femoral pulses bilaterally. Normal bowel sounds in all quadrants. MUSCULOSKELETAL: Patient is moving upper and lower extremities freely. No calf tenderness or edema, no Homans sign. Strong pulses in upper and lower extremities. NEUROLOGICAL: Patient is alert and oriented. Cranial nerves 2-12 are grossly intact. No focal deficits and speech is clear. SKIN: No rash and turgor is normal. Laboratory Laboratory Tests Test 02/26/17 02/26/17 02/27/17 19:25 20:15 01:02 Prothrombin Time 10.4 Prothromb Time International 0.9 Ratio Activated Partial 27.6 Thromboplast Time Urine Color YELLOW Urine Turbidity CLEAR Urine pH 6.5 Urine Specific [place] 1.025 Urine Protein NEG Urine Glucose (UA) NEG Urine Ketones NEG Urine Occult Blood NEG Urine Nitrite NEG Urine Bilirubin NEG Urine Urobilinogen 2.0 Urine Leukocyte Esterase NEG Urine RBC LESS THAN 1 Urine WBC 1 Urine Squamous Epithelial <1 Cells Urine Mucus FEW Microscopic Urinalysis Comment CULT NOT INDICATED Sodium Level 140 Potassium Level 3.7 Chloride Level 106 Carbon Dioxide Level 26.4 Anion Gap 8 Blood Urea Nitrogen 16 Creatinine 0.92 Estimat Glomerular Filtration 101 Rate Random Glucose 95 Calcium Level 9.4 Magnesium Level 2.3 Total Bilirubin 0.3 Aspartate Amino Transf 11 (AST/SGOT) Alanine Aminotransferase 18 (ALT/SGPT) Alkaline Phosphatase 101 Total Creatine Kinase 166 140 Creatine Kinase MB 2.0 1.5 Troponin I LESS THAN 0.02 LESS THAN 0.02 B-Type Natriuretic Peptide 31 Total Protein 8.0 Albumin 3.8 Lipase 88 White Blood Count 6.0 Red Blood Count 4.37 Hemoglobin 12.1 Hematocrit 37.9 Mean Corpuscular Volume 86.7 Mean Corpuscular Hemoglobin 27.8 Mean Corpuscular Hemoglobin 32.1 Concent Red Cell Distribution Width 16.6 Platelet Count 341 Mean Platelet Volume 7.9 Neutrophils (%) (Auto) 50.5 Lymphocytes (%) (Auto) 36.1 Monocytes (%) (Auto) 7.3 Eosinophils (%) (Auto) 5.0 Basophils (%) (Auto) 1.1 Neutrophils # (Auto) 3.0 Lymphocytes # (Auto) 2.2 Monocytes # (Auto) 0.4 Eosinophils # (Auto) 0.3 Basophils # (Auto) 0.1 CBC Comment DIFF FINAL Differential Comment Result Diagram: 02/26/17201402/26/171924 Imaging Last 24 hours Impressions Chest X-Ray 02/26/17 1838 Signed Impressions: Service Date/Time: Sunday, February 26, 2017 18:35 - CONCLUSION: No acute disease. Bala Franco MD Course EKGs have sinus rhythm with sinus bradycardia without significant ST segment depressions or elevations. Assessment and Plan Assessment and Plan * Chest pain: Patient has had serial cardiac enzymes and EKGs for ruling out purposes. He has been seen by Dr. Nazario Hernandez of cardiology in the chest pain center and will undergo a Lexiscan. He will be discharged home if his Lexiscan is nonischemic. * BPH: Patient states he has been without his Flomax for a month. This will be renewed. He needs to follow-up with urology. * Hypertension: Continue current medication. * GERD: Patient states has history of GERD, GI bleed but denies any blood in stool. He states that she can not take Pepcid or Protonix. We'll give a dose of Carafate. He states he has been taken [id number] medication at home he should continue that. He is to follow-up with GI. * Tobacco abuse: Patient has been counseled on the importance of smoking cessation. Patient is stable at this time. He is agreeable to this plan. Brady Sweet Feb 27, 2017 08:31
[2017-02-27] MEDS ORDERED: METOPROLOL SUCCINATE 50 MG EXTENDED RELEASE TAB PO SCH (09:00)
[2017-02-27] MEDS ORDERED: REGADENOSON INJ 0.4 MG/5 ML SYR ONE (09:34)
[2017-02-27] MEDS: HYDROCHLOROTHIAZIDE 25 MG TAB PO SCH (11:24)
[2017-02-27] MEDS: TAMSULOSIN HCL 0.4 MG CAP PO SCH ×2 (11:24→21:11)
[2017-02-27] MEDS: ACETAMINOPHEN/HYDROcodone 325 MG/10 MG TAB PO PRN (11:25)
[2017-02-27] MEDS: LIPASE/PROTEASE/AMYLASE (24,000/76,000/120,000) CAP PO SCH ×3 (11:25→18:30)
[2017-02-27] MEDS: amLODIPine BESYLATE 5 MG TAB PO SCH (11:25)
[2017-02-27] MEDS: ALPRAZolam 1 MG TAB PO PRN ×2 (11:31→21:12)
--- NOTE | 2017-02-27 12:17 | RADRPT ---
EXAM DATE/TIME: 02/27/2017 09:25 [place] COMPARISON: No previous studies available for comparison. INDICATIONS : Bilateral chest pain. Angina. DOSE: 27.2 mCi Tc99m Myoview at stress. 8.7 mCi Tc99m Myoview at rest. 0.4 mg Lexiscan STRESS SYMPTOMS: Dyspnea, abdominal pain, headache and chest pain. EJECTION FRACTION: 57% MEDICAL HISTORY : Myocardial infarction. Congestive heart failure. Gastroesophageal reflux disease. Smoker. Lung cancer . SURGICAL HISTORY : Lobectomy. Cholecystectomy. Cardiac catherization. ENCOUNTER: Initial ACUITY: 2 days PAIN SCALE: 8/10 LOCATION: Bilateral chest TECHNIQUE: The patient underwent pharmacologic stress with infusion of prescribed dose. Continuous ECG tracing was monitored during stress. Gated SPECT imaging was performed after stress and conventional SPECT i maging was performed at rest. The examination was performed on a SPECT/CT scanner, both attenuation and non-corrected datasets were reviewed. FINDINGS: DISTRIBUTION: The maximum perfused segment at stress is in the septum and wall. PERFUSION STUDY: There is a small area of moderately diminished relative perfusion involving the posterobasal wall whi ch does not extend into the inferior wall or apex. There does appear to be moderate redistribution. GATED STUDY: There is intact wall motion and thickening without hypokinetic or dyskinetic segments. CONCLUSION: Relatively small sized moderate severity posterobasal perfusion abnormality with moderate redistribut ion RISK CATEGORY: Low (<1% Annual Mortality Rate) Peter Bruno MD on February 27, 2017 at 12:12 Board Certified Radiologist. This report was verified electronically.
[2017-02-27] MEDS ORDERED: PANTOPRAZOLE SODIUM 40 MG VIAL IVP ONE (14:00)
[2017-02-27] MEDS: SODIUM CHLOR 0.9% 1000 ML INJ 1,000 ML IV SCH (14:10)
[2017-02-27] MEDS: SODIUM CHLORIDE 0.9% FLUSH 10 ML FLUSH IV FLUSH SCH ×2 (14:10→21:10)
[2017-02-27] MEDS ORDERED: ALBUTEROL SULFATE 90 MCG/ACT HFA 18 GM INHALER INH PRN (14:15)
--- NOTE | 2017-02-27 14:40 | MB ---
cc: TANYA HUDSON M.D. DATE OF CONSULTATION: 02/27/2017 REASON FOR CONSULTATION Abnormal nuclear stress test. HISTORY OF PRESENT ILLNESS Roberto Erazo is a 62-year-old man, he has had multiple visits to [facility]. I looked through the computer, he has actually had 10 nuclear stress tests. This last one was abnormal in the posterobasal segment. He has had a previous heart catheterization, June 15, 2007, at that time he had 50% ostial circumflex marginal disease and 50% distal circumflex disease. He comes in now with complaints of chest pain, describes it as a pressure in the left chest. It has been constant since Monday. It was stronger when he rode his bike. He has some mild shortness of breath and the discomfort is more or less constant, it is different than what he has had before. He smokes, he says currently two cigarettes a day. He carries a diagnosis of hypertension. ALLERGIES Include CARDURA, CIPRO, CODEINE, IMODIUM, NONSTEROIDAL ANTIINFLAMMATORY DRUGS, SPIRONALACTONE, FENTANYL, IV CONTRAST AND MENTION OF CORTICOSTEROIDS AND MRI PRECAUTIONS. PAST MEDICAL HISTORY 1. Hypertension. 2. Prostate disease. 3. Previous GI bleed. 4. COPD. 5. Chronic pancreatitis. 6. Previous right thoracotomy with decortication for empyema 2014. PAST SURGICAL HISTORY 1. Right chest decortication. 2. Prostate surgery. 3. Left hip. 4. Left rotator cuff. 5. Cholecystectomy. MEDICATIONS Current medications include: 1. Amlodipine 5 mg daily. 2. Flomax 0.4 mg daily. 3. He has Metoprolol ordered, last dose of metoprolol was before today. He is also on additional noncardiac medications. SOCIAL HISTORY He says that he lives with his . He has a large dog he calls [email or web address]. He smokes two cigarettes a day. Denies alcohol. He is on disability. PHYSICAL EXAMINATION GENERAL: Well-developed, well-nourished -[place]ales[place] man, does not appear to be excessively agitated. VITAL SIGNS: Charted. Most of the time he has been normotensive. He is in sinus rhythm on monitor. HEENT: Exam unremarkable. NECK: No JVD, no bruits. CHEST: Clear to auscultation. CARDIAC: Normal first and second heart sounds. Regular rate and rhythm. No murmurs or gallops. ABDOMEN: Soft, nontender. EXTREMITIES: Reveal no clubbing or cyanosis. Peripheral pulses are normal. DATA Nuclear stress test was abnormal as described. Chest x-ray shows no acute disease. LABORATORY Creatinine was 0.92. Troponin has been negative. Hematocrit 37.9. PT/PTT are normal. No tox performed this admission. IMPRESSION This is a 62-year-old -[place] man with single-vessel disease defined by a cath 10 years ago. He now has chest discomfort. The history is difficult because of psychiatric overlay. It is difficult to really tell whether he is in fact having ischemia. He mentioned that he has vomited bright red blood today and he has also passed blood in his stool, still apparently is heme-positive. RECOMMENDATIONS This is a complicated situation with the psychiatric overlay. Before doing a cardiac cath, I would like GI to endoscope him to see if he has active ulcer disease. The patient states he is not taking ulcer medications because it was making him hallucinate. I would like to get a psyche consult as well. I might consider a cath on him Monday morning versus continuation of medical therapy. Further therapy to be determined. MD CARL Hernandez/ROSALIA /2:15 PM /2:22 PM
--- NOTE | 2017-02-27 16:29 | PD.CONS ---
HPI History of Present Illness This is a 62 year old male known to us from previous admissions who presented to the ER with chest pain. Chest pain and abdominal pain started 2d ago. He took ASA for left side chest pain but pain persisted. Then he went to to have his BP checked it was 140/70 and he asked a automobile body repair chief if he could take another aspirin w/o causing GI bleed and was told yes. He rode his bike 3 miles , had left side chest discomfort so he put up his bike and came to ER. He is still having this pain. He is also having right side abdominal pain that radiates to his lower right back. He had hematemesis with brown blood and then black material. He had solid stools that became loose following his stress test with 7 BM in a row and had a foul odor. Stool was dark. 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 [facility] Coded Allergies: Cardura (Verified Allergy, Severe, SOB,CHEST PAIN, 02/26/17) Cipro (Verified Allergy, Severe, RASH, SWOLLEN FACE, 02/26/17) Codeine (Verified Allergy, Severe, sob, 02/26/17) Imodium (Verified Allergy, Severe, rash, 02/26/17) BROKE OUT IN RASH, AND SWELLING AROUND NECK Nonsteroidal Anti-Inflammatory Agts (Verified Allergy, Severe, 02/26/17) Spironolactone (Verified Allergy, Severe, Bleeding, 02/26/17) Fentanyl (Verified Allergy, Intermediate, rash, 02/26/17) Contrast Media (Verified Adverse Reaction, Severe, BLISTERS AND EDEMA AT SITE, 02/26/17) IV CONTRAST DYE ONLY, PT IS NOT ALLERGIC TO ORAL CONTRAST PER REPORT Corticosteroids (Verified Adverse Reaction, Severe, HEART MURMUR, 02/26/17) MRI PRECAUTION (Verified Adverse Reaction, Severe, SHRAPNEL IN C-SPINE per Dr. Smart 10/26/04, 02/26/17) Uncoded Allergies: FENTYNAL (Allergy, Severe, RASH AND BLISTERS, 12/27/16) PER PATIENT GI Exam Vitals I&O Vital Signs Date Time Temp Pulse Resp B/P Pulse Ox O2 Delivery O2 Flow Rate FiO2 02/27/17 15:29 98.0 70 16 105/61 97 02/27/17 12:54 63 02/27/17 12:35 68 20 105/64 97 02/27/17 08:00 72 02/27/17 07:24 95 21 02/27/17 07:11 97.6 64 16 136/58 96 02/27/17 04:06 16 02/27/17 03:31 97.4 62 18 115/68 98 02/27/17 01:44 62 02/27/17 00:11 97.7 63 18 133/84 98 02/27/17 00:01 16 02/26/17 21:44 64 18 119/76 99 Room Air 02/26/17 21:21 98 02/26/17 20:15 98 Room Air 02/26/17 19:46 67 18 137/80 100 Room Air 02/26/17 19:44 75 18 100 Room Air 02/26/17 19:03 98 02/26/17 16:27 98.2 90 18 136/87 98 Room Air Laboratory Test 02/26/17 02/26/17 02/27/17 19:25 20:15 01:02 Prothrombin Time 10.4 SEC Prothromb Time International 0.9 RATIO Ratio Activated Partial 27.6 SEC Thromboplast Time Urine Color YELLOW Urine Turbidity CLEAR Urine pH 6.5 Urine Specific [place] 1.025 Urine Protein NEG mg/dL Urine Glucose (UA) NEG mg/dL Urine Ketones NEG mg/dL Urine Occult Blood NEG Urine Nitrite NEG Urine Bilirubin NEG Urine Urobilinogen 2.0 MG/DL Urine Leukocyte Esterase NEG Urine RBC LESS THAN 1 /hpf Urine WBC 1 /hpf Urine Squamous Epithelial <1 /hpf Cells Urine Mucus FEW /lpf Microscopic Urinalysis Comment CULT NOT INDICATED Sodium Level 140 MEQ/L Potassium Level 3.7 MEQ/L Chloride Level 106 MEQ/L Carbon Dioxide Level 26.4 MEQ/L Anion Gap 8 MEQ/L Blood Urea Nitrogen 16 MG/DL Creatinine 0.92 MG/DL Estimat Glomerular Filtration 101 ML/MIN Rate Random Glucose 95 MG/DL Calcium Level 9.4 MG/DL Magnesium Level 2.3 MG/DL Total Bilirubin 0.3 MG/DL Aspartate Amino Transf 11 U/L (AST/SGOT) Alanine Aminotransferase 18 U/L (ALT/SGPT) Alkaline Phosphatase 101 U/L Total Creatine Kinase 166 U/L 140 U/L Creatine Kinase MB 2.0 NG/ML 1.5 NG/ML Troponin I LESS THAN 0.02 LESS THAN 0.02 NG/ML NG/ML B-Type Natriuretic Peptide 31 PG/ML Total Protein 8.0 GM/DL Albumin 3.8 GM/DL Lipase 88 U/L White Blood Count 6.0 TH/MM3 Red Blood Count 4.37 MIL/MM3 Hemoglobin 12.1 GM/DL Hematocrit 37.9 % Mean Corpuscular Volume 86.7 FL Mean Corpuscular Hemoglobin 27.8 PG Mean Corpuscular Hemoglobin 32.1 % Concent Red Cell Distribution Width 16.6 % Platelet Count 341 TH/MM3 Mean Platelet Volume 7.9 FL Neutrophils (%) (Auto) 50.5 % Lymphocytes (%) (Auto) 36.1 % Monocytes (%) (Auto) 7.3 % Eosinophils (%) (Auto) 5.0 % Basophils (%) (Auto) 1.1 % Neutrophils # (Auto) 3.0 TH/MM3 Lymphocytes # (Auto) 2.2 TH/MM3 Monocytes # (Auto) 0.4 TH/MM3 Eosinophils # (Auto) 0.3 TH/MM3 Basophils # (Auto) 0.1 TH/MM3 CBC Comment DIFF FINAL Differential Comment Physical Examination HEENT: PERRL; normocephalic; atraumatic; no jaundice. CHEST: CTA CARDIAC: RRR ABDOMEN: Soft, nondistended, diffuse TTP; no hepatosplenomegaly; bowel sounds are present in all four quadrants. EXTREMITIES: No clubbing, cyanosis, or edema. SKIN: Normal; no rash; no jaundice. SALES [employer]: alert and oriented times three but easily agitated. Assessment and Plan Plan ASSESSMENT -hematemesis, melena- pt reports hematemesis and diarrhea with dark stool following stress test. pos hemoccult per ER PA, done by chest pain center. 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 - anemia - mild, 12.1 which is actually the highest it has been since 10/2016. 2/ 2 above - abd pain - per pt RUQ radiating to right lower back, diffusely TTP. lipase WNL, LFTs WNL. - chest pain - being worked up. reportedly had abnormal stress test. PLAN - cardiac clearance for endoscopy - EGD when cleared by cardiology - monitor HH - transfuse if needed - clear liquid diet - continue PPI - carafate - further recommendations to follow This pt seen by myself and Dr Jerez and this note is written on his behalf Selam Miranda Feb 27, 2017 16:29
[2017-02-27 20:55] LABS: AUTOMATED NEUTROPHIL # 2.2 TH/MM3 (1.8-7.7); BASOPHIL # 0.1 TH/MM3 (0-0.2); BASOPHIL % 1.7 % (0.0-2.0); EOSINOPHIL # 0.4 TH/MM3 (0-0.4); EOSINOPHIL % 9.2 % (0.0-4.0); HEMATOCRIT 34.1 % (39.0-51.0); HEMO FLAGS DIFF FINAL; LYMPHOCYTE # 1.6 TH/MM3 (1.0-4.8); MEAN CELL VOLUME 87.4 FL (80.0-100.0); MEAN CORPUSCULAR HEMOGLOBIN 27.7 PG (27.0-34.0); MEAN CORPUSCULAR HGB CONC 31.7 % (32.0-36.0); MONO % 10.5 % (0.0-8.0); NEUT % 45.6 % (16.0-70.0); PLATELET COUNT 293 TH/MM3 (150-450); RED CELL DISTRIBUTION WIDTH 16.6 % (11.6-17.2); WHITE BLOOD COUNT 4.8 TH/MM3 (4.0-11.0)
[2017-02-27] MEDS: BUDESONIDE-FORMOTEROL 160/4.5 MCG INHALER INH SCH (21:00)
[2017-02-27] MEDS: SUCRALFATE 1 GM/10 ML CUP PO SCH (21:10)
[2017-02-27] MEDS: LANSOPRAZOLE SOLUTAB 30 MG TAB PO SCH (21:12)
[2017-02-27] MEDS: METOPROLOL TARTRATE 50 MG TAB PO SCH (21:14)
[2017-02-27 22:24] LABS: BICARBONATE 19.3 MEQ/L (21.0-32.0); MAGNESIUM 1.8 MG/DL (1.5-2.5); POTASSIUM 3.6 MEQ/L (3.5-5.1)
[2017-02-28] VITALS (10 sets, daily range): BP systolic 105–132; BP diastolic 55–69; PULSE 58–68; RESP 16–20; TEMP 97.2–98.5; O2SAT 95–100
[2017-02-28] MEDS: TEMAZEPAM 15 MG CAP PO PRN ×2 (01:33→23:30)
[2017-02-28] MEDS: SODIUM CHLOR 0.9% 1000 ML INJ 1,000 ML IV SCH ×2 (03:20→16:40)
[2017-02-28] MEDS: ACETAMINOPHEN/HYDROcodone 325 MG/10 MG TAB PO PRN ×2 (05:19→16:05)
[2017-02-28] MEDS: SUCRALFATE 1 GM/10 ML CUP PO SCH ×4 (06:36→23:19)
[2017-02-28] MEDS: LIPASE/PROTEASE/AMYLASE (24,000/76,000/120,000) CAP PO SCH ×3 (08:04→18:40)
[2017-02-28] MEDS: amLODIPine BESYLATE 5 MG TAB PO SCH (08:05)
[2017-02-28] MEDS: METOPROLOL TARTRATE 50 MG TAB PO SCH ×2 (08:05→21:00)
[2017-02-28] MEDS: TAMSULOSIN HCL 0.4 MG CAP PO SCH ×2 (08:05→23:20)
[2017-02-28] MEDS: SODIUM CHLORIDE 0.9% FLUSH 10 ML FLUSH IV FLUSH SCH ×2 (08:05→23:18)
[2017-02-28] MEDS: BUDESONIDE-FORMOTEROL 160/4.5 MCG INHALER INH SCH ×2 (08:05→23:18)
[2017-02-28] MEDS: HYDROCHLOROTHIAZIDE 25 MG TAB PO SCH (08:05)
[2017-02-28] MEDS: LANSOPRAZOLE SOLUTAB 30 MG TAB PO SCH ×2 (08:05→23:20)
--- NOTE | 2017-02-28 09:07 | TR ---
Date Performed: 02/27/2017 Time Performed: 10:09:51 DOCTOR: Lev Elmore DRUG LIST: CLINICAL HISTORY: CHEST PAIN REASON FOR TEST: CHEST PAIN REASON FOR ENDING: OBSERVATION: CONCLUSION: Lexiscan stress test was performed under standard four minute protocol. Radionuclide was injected one minute prior to ending the test. No electrocardiographic abormalities were present to suggest ischemia. Nuclear imaging and interpretation are pending. COMMENTS:
--- NOTE | 2017-02-28 09:15 | HHI.PR ---
Subjective Remarks Follow-up for multiple medical complaints. The patient is upset and preoccupied that he found a fly in his food today. He continues to complain of chest and abdominal pain. He is not sure if he is having any further GI bleeding. He attributes all his symptoms to being prescribed Pepcid and hydroxyzine during her recent outpatient visit at the [facility]. He is threatening to leave and go to [facility]. He states that we can't stop him from leaving because our "psych man already cleared me". Objective Vitals Vital Signs Date Time Temp Pulse Resp B/P Pulse Ox O2 Delivery O2 Flow Rate FiO2 02/28/17 07:16 97.9 59 20 106/62 98 02/28/17 06:37 18 02/28/17 05:00 98.5 62 18 105/62 98 02/28/17 03:48 61 02/28/17 00:51 98.3 68 18 105/65 98 02/27/17 23:46 63 02/27/17 21:07 97.8 66 18 131/71 98 02/27/17 20:19 67 02/27/17 15:29 98.0 70 16 105/61 97 02/27/17 12:54 63 02/27/17 12:35 68 20 105/64 97 Result Diagram: 02/27/17194002/[id number] Imaging Last Impressions Myocardial Perfusion Scan Nuc Med 02/27/17 0000 Signed Impressions: Service Date/Time: Monday, February 27, 2017 09:25 - CONCLUSION: Relatively small sized moderate severity posterobasal perfusion abnormality with moderate redistribution RISK CATEGORY: Low (<1%% Annual Mortality Rate) Peter Bruno MD Chest X-Ray 02/26/17 1838 Signed Impressions: Service Date/Time: Sunday, February 26, 2017 18:35 - CONCLUSION: No acute disease. Bala Franco MD Foot X-Ray 02/26/17 0000 Signed Impressions: Service Date/Time: Sunday, February 26, 2017 18:47 - CONCLUSION: 1. Mild soft tissue swelling with no acute fracture or malalignment. 2. Small spur off the inferior calcaneus. Bala Franco MD Objective Remarks GENERAL: Well-developed well-nourished. In no acute distress. Sitting up in bed. Appears comfortable. SKIN: Warm and dry. No lesions noted. HEENT: Normocephalic. Pupils equal and round. Mucous membranes pink and moist. CARDIOVASCULAR: Regular rate and rhythm. No murmur appreciated. RESPIRATORY: No accessory muscle use. Clear to auscultation. Breath sounds equal bilaterally. GASTROINTESTINAL: Abdomen soft, non-tender, nondistended. Bowel sounds x4. MUSCULOSKELETAL: No obvious deformities. No clubbing or cyanosis. No edema. NEUROLOGICAL: Awake and alert. No focal neurological deficits. Moves upper and lower extremities spontaneously. Normal speech. PSYCHIATRIC: Slightly agitated/sarcastic mood and flat affect; insight and judgment normal. A/P Assessment and Plan 62-year-old male with past medical history of HTN, BPH, GIB, COPD, chronic pancreatitis who presented with chest pain. He was found to have a positive stress test by chest pain center and admitted to the hospitalist service. He also reported hematemesis and dark stools after admission, and was reportedly Hemoccult positive. Chest pain: Cardiac enzymes negative 2. EKG showed NSR. Stress test showed relatively small size moderate severity posterior basal perfusion abnormality with moderate redistribution. Cardiology consulted, discussed with Dr. Hernandez, could consider catheterization if patient does not have active GI bleeding and is consentable per psych. Continue metoprolol. Holding aspirin for now with bleeding. Echo ordered. GI bleeding: History of EGD with AVMs ablated last week. Hemoglobin 12.1/10.8, previously 11.6 on 02/19/17. Repeat H&H pending. GI consulted, requests cardiac clearance for repeat EGD. Continue clear liquids. Continue PPI, although patient reports issues with multiple antireflux medications. Started on Carafate. Possible personality disorder: Recently admitted to psychiatry last week for possible brief psychotic episode. Psychiatry was reconsulted, discussed with Dr. Park, patient possibly has underlying personality disorder and there is no indication for acute psychiatric intervention at this time. The patient' s difficult personality makes appropriate care challenging. Other chronic medical conditions include chronic pain, anxiety, COPD, HTN, BPH, chronic pancreatitis: Stable at this time and will continue home medications as indicated. DVT prophylaxis: SCDs. No chemical prophylaxis with possible bleeding. Discharge Planning Follow-up specialists recommendations. Gaston Whitaker Feb 28, 2017 09:15
--- NOTE | 2017-02-28 10:03 | PD.CARD.PN ---
Subjective Subjective Remarks Asking for pain meds. States chest hurts all over. Discussed cath with poss PCI and states "I cannot take Plavix, I will bleed" Objective Medications Current Medications Medications (Trade) Dose Ordered Sig/Juan José Route Start Time Stop Time Status Last Admin (NS Flush) 2 ml UNSCH PRN IV FLUSH 02/26/17 21:15 (NS Flush) 2 ml BID IV FLUSH 02/27/17 09:00 02/27/17 21:10 (Tylenol) 500 mg Q4H PRN PO 02/26/17 21:15 (Zofran Inj) 4 mg Q6H PRN IV 02/26/17 21:15 02/27/17 07:09 (Xanax) 1 mg BID PRN PO 02/27/17 08:00 02/27/17 21:12 (Norvasc) 5 mg DAILY PO 02/27/17 09:00 02/28/17 08:05 (Flomax) 0.4 mg BID PO 02/27/17 09:00 02/28/17 08:05 (Creon 24-76-120) 2 cap TIDPC PO 02/27/17 09:30 02/28/17 08:04 (Hydrodiuril) 25 mg DAILY PO 02/27/17 09:00 02/28/17 08:05 (Restoril) 30 mg HS PRN PO 02/27/17 08:30 02/28/17 01:33 Acetaminophen/ Hydrocodone Bitart 1 tab 1 tab Q6HR PRN PO 02/27/17 08:45 02/28/17 05:19 (NS 1000 ml Inj) 1,000 ml @ 75 mls/hr [id number] IV 02/27/17 14:00 02/27/17 14:10 (Protonix Inj) 40 mg Q24H IV PUSH 02/28/17 14:00 (Ventolin Hfa Inh) 2 puff Q6H PRN INH 02/27/17 14:15 02/27/17 16:43 (Symbicort 160-4.5 Inh) 1 puff Q12HR INH 02/27/17 21:00 02/28/17 08:05 (Lopressor) 50 mg Q12HR PO 02/27/17 21:00 02/28/17 08:05 (Carafate Liq) 1 gm ACHS PO 02/27/17 21:00 02/28/17 06:36 (Prevacid Odt) 30 mg BID PO 02/27/17 21:00 02/28/17 08:05 Vital Signs / I&O Vital Signs Date Time Temp Pulse Resp B/P Pulse Ox O2 Delivery O2 Flow Rate FiO2 02/28/17 07:16 97.9 59 20 106/62 98 02/28/17 06:37 18 02/28/17 05:00 98.5 62 18 105/62 98 02/28/17 03:48 61 02/28/17 00:51 98.3 68 18 105/65 98 02/27/17 23:46 63 02/27/17 21:07 97.8 66 18 131/71 98 02/27/17 20:19 67 02/27/17 15:29 98.0 70 16 105/61 97 02/27/17 12:54 63 02/27/17 12:35 68 20 105/64 97 Physical Exam Alert Chest Clear CV S1S2 RRR No edema Laboratory Laboratory Tests Test 02/27/17 02/27/17 19:41 21:50 White Blood Count 4.8 TH/MM3 Red Blood Count 3.90 MIL/MM3 Hemoglobin 10.8 GM/DL Hematocrit 34.1 % Mean Corpuscular Volume 87.4 FL Mean Corpuscular Hemoglobin 27.7 PG Mean Corpuscular Hemoglobin 31.7 % Concent Red Cell Distribution Width 16.6 % Platelet Count 293 TH/MM3 Mean Platelet Volume 7.7 FL Neutrophils (%) (Auto) 45.6 % Lymphocytes (%) (Auto) 33.0 % Monocytes (%) (Auto) 10.5 % Eosinophils (%) (Auto) 9.2 % Basophils (%) (Auto) 1.7 % Neutrophils # (Auto) 2.2 TH/MM3 Lymphocytes # (Auto) 1.6 TH/MM3 Monocytes # (Auto) 0.5 TH/MM3 Eosinophils # (Auto) 0.4 TH/MM3 Basophils # (Auto) 0.1 TH/MM3 CBC Comment DIFF FINAL Differential Comment Sodium Level 134 MEQ/L Potassium Level 3.6 MEQ/L Chloride Level 106 MEQ/L Carbon Dioxide Level 19.3 MEQ/L Anion Gap 9 MEQ/L Blood Urea Nitrogen 14 MG/DL Creatinine 0.57 MG/DL Estimat Glomerular Filtration 175 ML/MIN Rate Random Glucose 85 MG/DL Calcium Level 8.3 MG/DL Magnesium Level 1.8 MG/DL Imaging Last 48 hours Impressions Myocardial Perfusion Scan Nuc Med 02/27/17 0000 Signed Impressions: Service Date/Time: Monday, February 27, 2017 09:25 - CONCLUSION: Relatively small sized moderate severity posterobasal perfusion abnormality with moderate redistribution RISK CATEGORY: Low (<1%% Annual Mortality Rate) Peter Bruno MD Chest X-Ray 02/26/17 1838 Signed Impressions: Service Date/Time: Sunday, February 26, 2017 18:35 - CONCLUSION: No acute disease. Bala Franco MD Assessment and Plan Problem List: (1) GI bleeding (2) Chest pain (3) Tobacco abuse (4) Hypertension Assessment and Plan Needs EGDE to see if acute UGI bleed. I can cath him but doing a stent might not be possible. Will see what scope shows first. He is cleared by me for scope. Problem Qualifiers (1) Chest pain: Qualified Code: R07.9 - Chest pain, unspecified type Nehemias Hernandez MD Feb 28, 2017 10:03
--- NOTE | 2017-02-28 11:18 | PD.PSY.CON ---
Provisional Diagnosis Admission Date Feb 26, 2017 at 21:14 Helotes I. 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 COPD, BPH, CHF, HTN, throat cancer in remission History of Present Illness Service Psychiatry Consult Requested By Primary Care Physician No Primary Care Physician HPI The patient is a 62-year-old man, domicile with his in [place], father of 3 kids, unemployed, supported by [facility], without psychiatric history of anxiety, drug seeking behavior, personality disorder, he is on Xanax 1 mg 3 times a day, prescribed by PCP, no previous suicidal attempts , alcohol use disorder, in sustained full remission, he has a previous psychiatric hospitalization here at [facility] at the beginning of February 2017 under the care of Dr. Hodge, he was discharged almost immediately, documentation was reviewed, medical history lung cancer in remission, CHF, HTN, COPD, GI bleeding , CVA, who presented with chest pain. He was found to have a positive stress test by chest pain center and admitted to the hospitalist service. He also reported hematemesis and dark stools after admission, and was reportedly Hemoccult positive.Consulted to psychiatry due to disorganized behavior, agitation, and suspected malingering. Cardiac enzymes negative 2. EKG showed NSR. Stress test showed relatively small size moderate severity posterior basal perfusion abnormality with moderate redistribution. Cardiology consulted , discussed with Dr. Hernandez, could consider catheterization if patient does not have active GI bleeding and is consentable per psych. Continue metoprolol. Holding aspirin for now with bleeding. Echo ordered. On psychiatric evaluation today patient is following the sun, sarcastic, making jokes, laughing. He immediately recognized me "here comes my psychiatrist to help me" . Patient says that the medication was given to him for anxiety during his last hospitalization is not helping him, he was prescribed with hydroxyzine 25 mg. He says that he needs Xanax "but I know what you're going to tell me, that you are not going to prescribe it". Patient says that he did not come here for psychiatric problems, he came here for chest pain "but now that they are telling me that I'll have nothing, I just want to go home". Patient denies depressive symptoms, he denies anxiety, he denies perceptual disturbances, he denies suicidal or homicidal ideation, he denies visual and auditory hallucinations. Fully oriented 3, goal-directed, with clear goals. He denies the use of drugs and alcohol, but toxicology was not done. During this evaluation patient in multiple locations request medication for pain and benzodiazepine. Review of Systems Constitutional: DENIES: Diaphoretic episodes, Fatigue, Fever, Weight gain, Weight loss, Chills, Dizziness, Change in appetite, Night Sweats Endocrine: DENIES: Heat/cold intolerance, Polydipsia, Polyuria, Polyphagia Eyes: DENIES: Blurred vision, Diplopia, Eye inflammation, Eye pain, Vision loss , Photosensitivity, Double Vision Ears, nose, mouth, throat: DENIES: Tinnitus, Hearing loss, Vertigo, Nasal discharge, Oral lesions, Throat pain, Hoarseness, Ear Pain, Running Nose, Epistaxis, Sinus Pain, Toothache, Odynophagia Respiratory: DENIES: Apneas, Cough, Snoring, Wheezing, Hemoptysis, Sputum production, Shortness of breath Cardiovascular: DENIES: Chest pain, Palpitations, Syncope, Dyspnea on Exertion , PND, Lower Extremity Edema, Orthopnea, Claudication Genitourinary: DENIES: Sexual dysfunction, Urinary frequency, Urinary incontinence, Urgency, Hematuria, Dysuria, Nocturia, Penile Discharge, Testicular Pain, Testicular Swelling Musculoskeletal: DENIES: Joint pain, Muscle aches, Stiffness, Joint Swelling, Back pain, Neck pain Integumentary: DENIES: Abnormal pigmentation, Nail changes, Pruritus, Rash Hematologic/lymphatic: DENIES: Bruising, Lymphadenopathy Immunologic/allergic: DENIES: Eczema, Urticaria Psychiatric: DENIES: Anxiety, Confusion, Mood changes, Depression, Hallucinations, Agitation, Suicidal Ideation, Homicidal Ideation, Delusions Past Family Social History Coded Allergies: Cardura (Verified Allergy, Severe, SOB,CHEST PAIN, 02/26/17) Cipro (Verified Allergy, Severe, RASH, SWOLLEN FACE, 02/26/17) Codeine (Verified Allergy, Severe, sob, 02/26/17) Imodium (Verified Allergy, Severe, rash, 02/26/17) BROKE OUT IN RASH, AND SWELLING AROUND NECK Nonsteroidal Anti-Inflammatory Agts (Verified Allergy, Severe, 02/26/17) Spironolactone (Verified Allergy, Severe, Bleeding, 02/26/17) Fentanyl (Verified Allergy, Intermediate, rash, 02/26/17) Contrast Media (Verified Adverse Reaction, Severe, BLISTERS AND EDEMA AT SITE, 02/26/17) IV CONTRAST DYE ONLY, PT IS NOT ALLERGIC TO ORAL CONTRAST PER REPORT Corticosteroids (Verified Adverse Reaction, Severe, HEART MURMUR, 02/26/17) MRI PRECAUTION (Verified Adverse Reaction, Severe, SHRAPNEL IN C-SPINE per Dr. Smart 10/26/04, 02/26/17) Uncoded Allergies: FENTYNAL (Allergy, Severe, RASH AND BLISTERS, 12/27/16) PER PATIENT Active Scripts Tamsulosin (Flomax)0.4 Mg Cap0.4 Mg PO BID #60 CAP Prov:Lakhwinder Hodge MD 02/21/17 Amlodipine (Norvasc)5 Mg Tab5 Mg PO DAILY #30 TAB Prov:Lakhwinder Hodge MD 02/21/17 Albuterol 18 GM Inh (Ventolin Hfa 18 GM Inh)90 Mcg/Act Aer2 Puff INH Q6H PRN ( SHORTNESS OF BREATH) #1 INHALER Prov:Lakhwinder Hodge MD 02/21/17 Metoprolol Succinate ER 24 HR 50 Mg Tab50 Mg PO BID #30 TAB Ref 0 Prov:Nudalo-Briganti,Iszenn VITAMIN MANAGER 02/18/17 Pancrelipase (Zenpep)40,000-136,000-218,000 Units Cap1 Cap PO TIDPC #90 CAP Ref 0 Prov:Nudalo-Briganti,Iszenn VITAMIN MANAGER 02/18/17 Hydrocodone-Acetaminophen (Lortab)10-325 Mg Tab1 Tab PO Q6HR PRN (PAIN) #0 TAB Ref 0 do not take this medicine if you will drive a car or use a machine, only use it when resting at home Prov:Gaston Whitaker 02/17/17 Budesonide-Formoterol Inh (Symbicort Inh)160-4.5 Mcg/Act Aero1 Puff INH Q12HR # 1 INHALER Ref 0 Prov:Nish Ken MD 01/19/17 Magnesium Hydroxide Liq (Milk of Magnesia Liq)400 Mg/5 Ml Susp30 Ml PO BID PRN ( INDIGESTION OR UPSET STOMACH) #1 BOTTLE Ref 0 Prov:Nish Ken MD 01/19/17 Alprazolam (Xanax)1 Mg Tab1 Mg PO BID PRN (ANXIETY) #14 TAB Ref 0 Prov:Nish Ken MD 01/19/17 Temazepam 30 Mg Cap30 Mg PO HS PRN (INSOMNIA) #7 CAP Ref 0 Prov:Nish Ken MD 01/19/17 Albuterol 6.7 GM Inh (Proventil Hfa 6.7 GM Inh)90 Mcg/Act Aer2 Puff INH Q6H PRN (SHORTNESS OF BREATH) #1 INHALER Ref 0 Prov:Nish Ken MD 01/19/17 Reported Medications Hydrochlorothiazide 25 Mg Tab25 Mg PO DAILY #30 TAB Ref 0 02/27/17 Current Medications Medications (Trade) Dose Ordered Sig/Juan José Route Start Time Stop Time Status Last Admin (NS Flush) 2 ml UNSCH PRN IV FLUSH 02/26/17 21:15 (NS Flush) 2 ml BID IV FLUSH 02/27/17 09:00 02/27/17 21:10 (Tylenol) 500 mg Q4H PRN PO 02/26/17 21:15 (Zofran Inj) 4 mg Q6H PRN IV 02/26/17 21:15 02/27/17 07:09 (Xanax) 1 mg BID PRN PO 02/27/17 08:00 02/27/17 21:12 (Norvasc) 5 mg DAILY PO 02/27/17 09:00 02/28/17 08:05 (Flomax) 0.4 mg BID PO 02/27/17 09:00 02/28/17 08:05 (Creon 24-76-120) 2 cap TIDPC PO 02/27/17 09:30 02/28/17 08:04 (Hydrodiuril) 25 mg DAILY PO 02/27/17 09:00 02/28/17 08:05 (Restoril) 30 mg HS PRN PO 02/27/17 08:30 02/28/17 01:33 Acetaminophen/ Hydrocodone Bitart 1 tab 1 tab Q6HR PRN PO 02/27/17 08:45 02/28/17 05:19 (NS 1000 ml Inj) 1,000 ml @ 75 mls/hr [id number] IV 02/27/17 14:00 02/27/17 14:10 (Protonix Inj) 40 mg Q24H IV PUSH 02/28/17 14:00 (Ventolin Hfa Inh) 2 puff Q6H PRN INH 02/27/17 14:15 02/27/17 16:43 (Symbicort 160-4.5 Inh) 1 puff Q12HR INH 02/27/17 21:00 02/28/17 08:05 (Lopressor) 50 mg Q12HR PO 02/27/17 21:00 02/28/17 08:05 (Carafate Liq) 1 gm ACHS PO 02/27/17 21:00 02/28/17 06:36 (Prevacid Odt) 30 mg BID PO 02/27/17 21:00 02/28/17 08:05 Family History Patient denies family psychiatric history Social History Patient was born and raised in [place], he lives with in [place], he has 3 kids, unemployed, history of incarcerations, highest level of education is 12th grade Physical Exam Vital Signs Vital Signs Date Time Temp Pulse Resp B/P Pulse Ox O2 Delivery O2 Flow Rate FiO2 02/28/17 07:16 97.9 59 20 106/62 98 02/27/17 07:24 21 02/26/17 21:44 Room Air Lab Results Laboratory Tests Test 02/27/17 02/27/17 19:41 21:50 White Blood Count 4.8 TH/MM3 Red Blood Count 3.90 MIL/MM3 Hemoglobin 10.8 GM/DL Hematocrit 34.1 % Mean Corpuscular Volume 87.4 FL Mean Corpuscular Hemoglobin 27.7 PG Mean Corpuscular Hemoglobin 31.7 % Concent Red Cell Distribution Width 16.6 % Platelet Count 293 TH/MM3 Mean Platelet Volume 7.7 FL Neutrophils (%) (Auto) 45.6 % Lymphocytes (%) (Auto) 33.0 % Monocytes (%) (Auto) 10.5 % Eosinophils (%) (Auto) 9.2 % Basophils (%) (Auto) 1.7 % Neutrophils # (Auto) 2.2 TH/MM3 Lymphocytes # (Auto) 1.6 TH/MM3 Monocytes # (Auto) 0.5 TH/MM3 Eosinophils # (Auto) 0.4 TH/MM3 Basophils # (Auto) 0.1 TH/MM3 CBC Comment DIFF FINAL Differential Comment Sodium Level 134 MEQ/L Potassium Level 3.6 MEQ/L Chloride Level 106 MEQ/L Carbon Dioxide Level 19.3 MEQ/L Anion Gap 9 MEQ/L Blood Urea Nitrogen 14 MG/DL Creatinine 0.57 MG/DL Estimat Glomerular Filtration 175 ML/MIN Rate Random Glucose 85 MG/DL Calcium Level 8.3 MG/DL Magnesium Level 1.8 MG/DL Imaging Last 48 hours Impressions Myocardial Perfusion Scan Nuc Med 02/27/17 0000 Signed Impressions: Service Date/Time: Monday, February 27, 2017 09:25 - CONCLUSION: Relatively small sized moderate severity posterobasal perfusion abnormality with moderate redistribution RISK CATEGORY: Low (<1%% Annual Mortality Rate) Peter Bruno MD Chest X-Ray 02/26/17 1838 Signed Impressions: Service Date/Time: Sunday, February 26, 2017 18:35 - CONCLUSION: No acute disease. Bala Franco MD Mental Status Examination Appearance man, age appearing, [facility], cooperative, sarcastic, cheerful Speech: Unremarkable Orientation: Person Memory: Unremarkable Thought Process: Logical Thought Content: Unremarkable Hallucination Type: None Suicidal Ideation: No Previous Suicide Attempts: No Homicidal Ideation: No Previous Homicide Attempts: No Affect: Euthymic Mood: Appropriate Motor Activity: Normal gait Assessment & Plan Problem List: (1) Adjustment disorder with anxiety Assessment & Plan: On psychiatric evaluation today the patient does not present any evidence of depressive symptoms, psychosis or acute anxiety. He denies suicidal or homicidal ideation, he denies visual and auditory hallucinations. He reports episodic anxiety at home and requests Xanax. During the evaluation patient is goal-directed, very sarcastic and cheerful. Patient seems to be focused in getting benzodiazepines and pain medication. At times he becomes disorganized with loosening of associations, but he is easily redirectable. At toxicology screen was not performed this time, but something induced psychosis is possible. This patient does not meet criteria for psychiatric admission at this moment. There some elements of patient's behavior , social and psychiatric history and based in previous documentation and observation, that suggest malicious stimulation with secondary gain and an underlying personality pathology. Psychoeducation and support provided. Psychiatry is signing off. ICD Code: F43.22 Assessment & Plan Estimated LOS: Hollis Thompson MD Feb 28, 2017 11:18
[2017-02-28] MEDS ORDERED: LACTATED RINGER'S 1,000 ML BAG IV ONE (11:25)
[2017-02-28] MEDS ORDERED: GLUCAGON 1 MG/ML VIAL IV ONE (11:43)
[2017-02-28] MEDS ORDERED: PROPOFOL 200 MG/20 ML AMP IV ONE (11:43)
--- NOTE | 2017-02-28 12:29 | HHI.GIFU ---
Subjective Remarks Immediate post procedure note: EGD and push enteroscopy with ablation of AVMs Indication: GI bleed, melena Meds: MAC Findings: Esophagus: normal Stomach: few AVMs ablated with bipolar gold probe Duodenum: multiple AVMs ablated with gold probe. Switched to pediatric colonoscope and advanced deeper into the duodenum to the jejunum. Multiple additional avms were there out of reach of the Gastroscope. All AVMs seen were ablated except for one that could not be seen well due to folds. Impression: multiple small bowel AVMs. Most of them were ablated. Probably the cause for his repeated GI bleeds. Rec: These sites will be prone to bleeding with pt receiving anticoagulation. If Cardiac Cath can wait 5-7 days the risk of bleeding will be less. Objective Vitals I&O Vital Signs Date Time Temp Pulse Resp B/P Pulse Ox O2 Delivery O2 Flow Rate FiO2 02/28/17 11:15 97.4 58 18 124/69 98 02/28/17 07:16 97.9 59 20 106/62 98 02/28/17 06:37 18 02/28/17 05:00 98.5 62 18 105/62 98 02/28/17 03:48 61 02/28/17 00:51 98.3 68 18 105/65 98 02/27/17 23:46 63 02/27/17 21:07 97.8 66 18 131/71 98 02/27/17 20:19 67 02/27/17 15:29 98.0 70 16 105/61 97 02/27/17 12:54 63 02/27/17 12:35 68 20 105/64 97 Laboratory Laboratory Tests Test 02/27/17 02/27/17 19:41 21:50 White Blood Count 4.8 Red Blood Count 3.90 Hemoglobin 10.8 Hematocrit 34.1 Mean Corpuscular Volume 87.4 Mean Corpuscular Hemoglobin 27.7 Mean Corpuscular Hemoglobin 31.7 Concent Red Cell Distribution Width 16.6 Platelet Count 293 Mean Platelet Volume 7.7 Neutrophils (%) (Auto) 45.6 Lymphocytes (%) (Auto) 33.0 Monocytes (%) (Auto) 10.5 Eosinophils (%) (Auto) 9.2 Basophils (%) (Auto) 1.7 Neutrophils # (Auto) 2.2 Lymphocytes # (Auto) 1.6 Monocytes # (Auto) 0.5 Eosinophils # (Auto) 0.4 Basophils # (Auto) 0.1 CBC Comment DIFF FINAL Differential Comment Sodium Level 134 Potassium Level 3.6 Chloride Level 106 Carbon Dioxide Level 19.3 Anion Gap 9 Blood Urea Nitrogen 14 Creatinine 0.57 Estimat Glomerular Filtration 175 Rate Random Glucose 85 Calcium Level 8.3 Magnesium Level 1.8 Physical Exam HEENT: Pupils round and reactive to light; normocephalic; atraumatic; no jaundice. Throat is clear. NECK: Neck is supple, no JVD, no lymphadenopathy. CHEST: Chest is clear to auscultation and percussion. CARDIAC: Regular rate and rhythm with no murmur gallop or rubs. ABDOMEN: Soft, nondistended, nontender; no hepatosplenomegaly; bowel sounds are present in all four quadrants. EXTREMITIES: No clubbing, cyanosis, or edema. SKIN: Normal; no rash; no jaundice. PATENTS EXAMINER: No focal deficits; alert and oriented times three. Assessment and Plan Plan ASSESSMENT -hematemesis, melena- pt reports hematemesis and diarrhea with dark stool following stress test. pos hemoccult per ER PA, done by chest pain center. 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 - anemia - mild, 12.1 which is actually the highest it has been since 10/2016. 2/ 2 above - abd pain - per pt RUQ radiating to right lower back, diffusely TTP. lipase WNL, LFTs WNL. - chest pain - being worked up. reportedly had abnormal stress test. - EGD and push enteroscopy performed 02/28 with ablation of at least 10 additional AVMs PLAN - Discuss with cardiology timing of Cardiac Cath if maximal anticoagulation is to be used. - High risk of bleeding during the next 5-7 days from cautery sites. - monitor HH - transfuse if needed - clear liquid diet - continue PPI - carafate Aashish Jerez MD Feb 28, 2017 12:28
[2017-02-28] MEDS ORDERED: HYDROmorphone HCL PF 2 MG/ML VIAL IV ONE (12:35)
[2017-02-28] MEDS: PANTOPRAZOLE SODIUM 40 MG VIAL IV PUSH SCH (13:05)
[2017-02-28] MEDS: ALPRAZolam 1 MG TAB PO PRN (18:40)
[2017-02-28] MEDS: HYDROmorphone HCL PF 1 MG/ML VIAL IV PUSH PRN (20:11)
--- NOTE | 2017-02-28 22:45 | ECHRPT ---
Indication: Coronary Atherosclerosis CONCLUSIONS Normal left ventricular size and wall thickness. The left ventricular systolic function is normal wi th an estimated ejection fraction in the range of 50-55%. Left ventricular diastolic function parameters a re normal. Mild mitral valve regurgitation. Mitral annular calcification is present. There is mild tricuspid valve regurgitation. The estimated pulmonary arterial pressure is 27 mmHg. There is a trivial pericardial effusion present. A small pleural effusion is noted. BP: / HR: Rhythm: Sinus MEASUREMENTS (Male / Female) Normal Values Technical Quality:Good 2D ECHO LV Diastolic Diameter PLAX 4.5 cm 4.2 - 5.9 / 3.9 - 5.3 cm LV Systolic Diameter PLAX 3.5 cm IVS Diastolic Thickness 0.7 cm 0.6 - 1.0 / 0.6 - 0.9 cm LVPW Diastolic Thickness 0.8 cm 0.6 - 1.0 / 0.6 - 0.9 cm LV Relative Wall Thickness 0.3 RV Internal Dim ED PLAX 2.0 cm DOPPLER Mitral E Point Velocity 41.0 cm/s Mitral A Point Velocity 63.2 cm/s Mitral E to A Ratio 0.6 LV E' Lateral Velocity 6.6 cm/s Mitral E to LV E' Lateral Ratio 6.2 LV E' Septal Velocity 5.8 cm/s Mitral E to LV E' Septal Ratio 7.1 TR Peak Velocity 235.0 cm/s TR Peak Gradient 22.1 mmHg FINDINGS LEFT VENTRICLE Normal left ventricular size and wall thickness. The left ventricular systolic function is normal wi th an estimated ejection fraction in the range of 50-55%. Left ventricular diastolic function parameters a re normal. RIGHT VENTRICLE Normal right ventricular size and systolic function. LEFT ATRIUM The left atrial size is normal. RIGHT ATRIUM The right atrial size is normal. ATRIAL SEPTUM Normal atrial septal thickness without atrial level shunting by limited color doppler interrogation. AORTA The aortic root and proximal ascending aorta are normal in size on limited imaging. MITRAL VALVE Mild mitral valve regurgitation. Mitral annular calcification is present. AORTIC VALVE Trileaflet aortic valve. No aortic valve stenosis or regurgitation. TRICUSPID VALVE There is mild tricuspid valve regurgitation. The estimated pulmonary arterial pressure is 27 mmHg. PULMONARY VALVE The pulmonary valve is not well visualized. VESSELS The inferior vena cava is normal in size. PERICARDIUM There is a trivial pericardial effusion present. A small pleural effusion is noted. Matthew Jackson MD (Electronically Signed) Final Date:28 February 2017 22:43
--- NOTE | 2017-02-28 23:58 | MR ---
cc: CRISTOFER SMITH HAROLD H. MD DATE: 02/28/2017 PROCEDURE Esophagogastroduodenoscopy and push enteroscopy with ablation of AVMs. INDICATION GI bleed with melena and history of AVMs. REFERRING PHYSICIAN: Dr. Cristofer Smith. DESCRIPTION OF PROCEDURE: After informed consent was obtained the patient was placed in left side down position. He was sedated by the anesthesia service. After adequate sedation was achieved, the Pentax video gastroscope was inserted in the oropharynx advanced down to the esophagus, stomach and duodenum. It was then slowly withdrawn examining the mucosal surfaces carefully. There were multiple AVMs probably three or four ablated with the gold probe in the duodenum. In the stomach there were two AVMs ablated with the gold probe. The scope was retroflexed and the fundus and cardia was then straightened and pulled out through the esophagus and the scope was switched over to a pediatric colonoscope so that the examination could be advanced deeper into the duodenum and hopefully to the proximal jejunum. The scope was advanced into the oropharynx and easily down into the esophagus and stomach. It was advanced into the duodenum and then it advanced into the distal duodenum. Glucagon was administered as well as Mylicon to allow for optimal visualization. Multiple additional AVMs were visualized and ablated using the bipolar gold probe. The scope was advanced continuously as far as possible and at the proximal jejunum the AVMs appeared to cut off and there were no additional AVMs visualized for the distal 20 to 30 cm of advancement. The scope was then withdrawn and a few additional AVMs were ablated. The scope was then withdrawn back into the stomach and out the mouth and the procedure was terminated. He tolerated the procedure well and was returned to the recovery area in good condition. FINDINGS 1. The esophagus was normal. 2. In the stomach there were few AVMs ablated with the bipolar gold probe. 3. In the duodenum there were multiple AVMs, probably 3 or 4 ablated with the gold probe. 4. After switching to the pediatric colonoscope, with deeper advancement into the duodenum and into the jejunum, there were multiple additional AVMs, probably ten or more that were ablated using the bipolar gold probe. There was one AVM that was identified. It could not be reached due to the sharp angulation and this one could not be ablated. IMPRESSION: 1. 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 There are probably a few more present. These are probably the cause for his repeated GI bleeds. 2. The patient has probable single-vessel coronary artery disease and cardiac cath is being considered. RECOMMENDATIONS The sites that were treated will be prone to bleeding if this patient receives anticoagulation especially during the next 5-7 days. I have called Dr. Hernandez on the phone and explained the results to him and we will plan to wait for at least one week prior to performing any cardiac catheterization so that the risk of bleeding can be minimized. In the meantime we should probably perform a follow up colonoscopy to make sure that no other AVMs or other potentially bleeding lesions are present. Aashish Jerez MD [facility] /1:15 PM /11:50 PM
[2017-03-01] VITALS (11 sets, daily range): BP systolic 104–138; BP diastolic 52–78; PULSE 63–74; RESP 15–18; TEMP 97.4–98.5; O2SAT 94–100
[2017-03-01] MEDS: HYDROmorphone HCL PF 1 MG/ML VIAL IV PUSH PRN ×5 (04:06→22:11)
[2017-03-01] MEDS: SUCRALFATE 1 GM/10 ML CUP PO SCH ×4 (06:17→22:29)
[2017-03-01] MEDS: SODIUM CHLOR 0.9% 1000 ML INJ 1,000 ML IV SCH ×2 (06:21→22:08)
--- NOTE | 2017-03-01 08:02 | HHI.PR ---
Subjective Remarks Follow up for atypical chest pain, GI bleeding. The patient reports continued diffuse chest pains located across the anterior chest, mostly constant throughout the night. He states he did eat some of his liquid tray for dinner last night however shortly after became nauseous with no vomiting. He reports 2- 3 episodes of black stool since he's been in the hospital. He has questions about the cardiac catheterization and wants to speak with the case picker. Objective Vitals Vital Signs Date Time Temp Pulse Resp B/P Pulse Ox O2 Delivery O2 Flow Rate FiO2 03/01/17 07:16 97.4 66 16 121/59 98 03/01/17 04:13 66 03/01/17 03:55 98.0 69 16 126/59 99 03/01/17 03:05 66 112/56 03/01/17 02:20 98.1 66 15 104/52 99 03/01/17 00:40 63 02/28/17 23:51 97.2 62 16 119/55 100 02/28/17 21:29 98.1 62 17 124/59 96 02/28/17 19:49 97.3 60 17 132/66 98 02/28/17 19:03 95 21 02/28/17 12:35 73 16 107/62 94 02/28/17 12:25 72 16 101/52 96 02/28/17 12:15 97.4 70 16 106/53 96 02/28/17 11:15 97.4 58 18 124/69 98 02/28/17 08:00 58 I/O 02/28/17 02/28/17 02/28/17 03/01/17 03/01/17 03/01/17 07:00 15:00 23:00 07:00 15:00 23:00 Intake Total 800 ml 480 ml Output Total 1000 ml Balance 800 ml -520 ml Intake Oral 480 ml Other 800 ml Output Urine Total 1000 ml # Voids 4 1 Result Diagram: 02/27/17194002/27/172149 Imaging Last Impressions Myocardial Perfusion Scan Nuc Med 02/27/17 0000 Signed Impressions: Service Date/Time: Monday, February 27, 2017 09:25 - CONCLUSION: Relatively small sized moderate severity posterobasal perfusion abnormality with moderate redistribution RISK CATEGORY: Low (<1%% Annual Mortality Rate) Peter Bruno MD Chest X-Ray 02/26/17 1838 Signed Impressions: Service Date/Time: Sunday, February 26, 2017 18:35 - CONCLUSION: No acute disease. Bala Franco MD Foot X-Ray 02/26/17 0000 Signed Impressions: Service Date/Time: Sunday, February 26, 2017 18:47 - CONCLUSION: 1. Mild soft tissue swelling with no acute fracture or malalignment. 2. Small spur off the inferior calcaneus. Bala Franco MD Objective Remarks GENERAL: Well-nourished, well-developed male patient in NAD. SKIN: Warm and dry. No rash. HEENT: Normocephalic. Atraumatic. Pupils equal and round. Mucous membranes pink and moist. NECK: Supple. Trachea midline. CARDIOVASCULAR: Regular rate and rhythm. S1, S2 noted. No murmur appreciated. RESPIRATORY: No accessory muscle use. Clear to auscultation. Breath sounds equal bilaterally. GASTROINTESTINAL: Abdomen soft, non-tender, nondistended. Normoactive bowel sounds x4. MUSCULOSKELETAL: No obvious deformities. Extremities without clubbing, cyanosis , or edema. NEUROLOGICAL: Awake and alert. No obvious cranial nerve deficits. Motor grossly within normal limits. Normal speech. PSYCHIATRIC: Flat affect, argumentative; insight and judgment normal. Procedures 02/28/[address] Jerez: 1. The esophagus was normal. 2. In the stomach there were few AVMs ablated with the bipolar gold probe. 3. In the duodenum there were multiple AVMs, probably 3 or 4 ablated with the gold probe. 4. After switching to the pediatric colonoscope, with deeper advancement into the duodenum and into the jejunum, there were multiple additional AVMs, probably ten or more that were ablated using the bipolar gold probe. There was one AVM that was identified. It could not be reached due to the sharp angulation and this one could not be ablated. IMPRESSION: 1. 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 There are probably a few more present. These are probably the cause for his repeated GI bleeds. Medications and IVs Current Medications Medications (Trade) Dose Ordered Sig/Juan José Route Start Time Stop Time Status Last Admin (NS Flush) 2 ml UNSCH PRN IV FLUSH 02/26/17 21:15 (NS Flush) 2 ml BID IV FLUSH 02/27/17 09:00 02/28/17 23:18 (Tylenol) 500 mg Q4H PRN PO 02/26/17 21:15 (Zofran Inj) 4 mg Q6H PRN IV 02/26/17 21:15 02/27/17 07:09 (Xanax) 1 mg BID PRN PO 02/27/17 08:00 02/28/17 18:40 (Norvasc) 5 mg DAILY PO 02/27/17 09:00 02/28/17 08:05 (Flomax) 0.4 mg BID PO 02/27/17 09:00 02/28/17 23:20 (Creon 24-76-120) 2 cap TIDPC PO 02/27/17 09:30 02/28/17 18:40 (Hydrodiuril) 25 mg DAILY PO 02/27/17 09:00 02/28/17 08:05 (Restoril) 30 mg HS PRN PO 02/27/17 08:30 02/28/17 23:30 Acetaminophen/ Hydrocodone Bitart 1 tab 1 tab Q6HR PRN PO 02/27/17 08:45 02/28/17 16:05 (NS 1000 ml Inj) 1,000 ml @ 75 mls/hr [id number] IV 02/27/17 14:00 03/01/17 06:21 (Protonix Inj) 40 mg Q24H IV PUSH 02/28/17 14:00 02/28/17 13:05 (Ventolin Hfa Inh) 2 puff Q6H PRN INH 02/27/17 14:15 02/27/17 16:43 (Symbicort 160-4.5 Inh) 1 puff Q12HR INH 02/27/17 21:00 02/28/17 23:18 (Lopressor) 50 mg Q12HR PO 02/27/17 21:00 02/28/17 08:05 (Carafate Liq) 1 gm ACHS PO 02/27/17 21:00 03/01/17 06:17 (Prevacid Odt) 30 mg BID PO 02/27/17 21:00 02/28/17 23:20 (Dilaudid Pf Inj) 0.5 mg Q4H PRN IV PUSH 02/28/17 18:45 03/01/17 04:06 Urinary Catheter: No A/P Assessment and Plan 62-year-old male with past medical history of HTN, BPH, GIB, COPD, chronic pancreatitis who presented with chest pain. He was found to have a positive stress test by chest pain center and admitted to the hospitalist service. He also reported hematemesis and dark stools after admission, and was reportedly Hemoccult positive. Chest pain: Cardiac enzymes negative 2. EKG showed NSR. Nuclear Stress test showed relatively small size moderate severity posterior basal perfusion abnormality with moderate redistribution. Cardiology consulted, per Dr. Hernandez , consider catheterization if patient does not have active GI bleeding and is consentable per psych. Continue metoprolol. Holding aspirin for now with bleeding. Echo with normal EF 50-55%. GI bleeding: History of EGD with AVMs ablated last week. Hemoglobin 12.1 --> 10.8, previously 11.6 on 02/19/17. Repeat H&H pending. GI consulted, performed EGD which showed multiple gastric and small bowel AVMs that were ablated, likely cause of recurrent GI bleeding. Continue full liquids, diet per GI. Continue PPI, although patient reports issues with multiple antireflux medications. Started on Carafate. GI planning for colonoscopy tomorrow. Suspected personality disorder: Recently admitted to psychiatry last week for possible brief psychotic episode. Psychiatry was reconsulted, seen by Dr. Park, patient possibly has underlying personality disorder and there is no indication for acute psychiatric intervention at this time. The patient's difficult personality makes appropriate care challenging. Other chronic medical conditions include chronic pain, anxiety, COPD, HTN, BPH, chronic pancreatitis: Stable at this time and will continue home medications as indicated. DVT prophylaxis: SCDs. No chemical prophylaxis with GI bleeding. Discharge Planning economic specialist recommendations. GI planning for colonoscopy tomorrow. Brenda Daigle PA-C Mar 01, 2017 8:02 am
[2017-03-01] MEDS: METOPROLOL TARTRATE 50 MG TAB PO SCH ×2 (08:58→09:00)
[2017-03-01] MEDS: TAMSULOSIN HCL 0.4 MG CAP PO SCH ×2 (08:58→22:29)
[2017-03-01] MEDS: HYDROCHLOROTHIAZIDE 25 MG TAB PO SCH ×2 (08:58→09:00)
[2017-03-01] MEDS: amLODIPine BESYLATE 5 MG TAB PO SCH ×2 (08:59→09:00)
[2017-03-01] MEDS: LANSOPRAZOLE SOLUTAB 30 MG TAB PO SCH ×2 (08:59→22:29)
[2017-03-01] MEDS: SODIUM CHLORIDE 0.9% FLUSH 10 ML FLUSH IV FLUSH SCH ×2 (09:00→22:09)
[2017-03-01] MEDS: BUDESONIDE-FORMOTEROL 160/4.5 MCG INHALER INH SCH ×2 (09:00→22:09)
--- NOTE | 2017-03-01 09:02 | PD.CARD.PN ---
Subjective Subjective Remarks asking for pain meds. Pain does not sound typical of angina Objective Medications Current Medications Medications (Trade) Dose Ordered Sig/Juan José Route Start Time Stop Time Status Last Admin (NS Flush) 2 ml UNSCH PRN IV FLUSH 02/26/17 21:15 (NS Flush) 2 ml BID IV FLUSH 02/27/17 09:00 02/28/17 23:18 (Tylenol) 500 mg Q4H PRN PO 02/26/17 21:15 (Zofran Inj) 4 mg Q6H PRN IV 02/26/17 21:15 02/27/17 07:09 (Xanax) 1 mg BID PRN PO 02/27/17 08:00 02/28/17 18:40 (Norvasc) 5 mg DAILY PO 02/27/17 09:00 02/28/17 08:05 (Flomax) 0.4 mg BID PO 02/27/17 09:00 02/28/17 23:20 (Creon 24-76-120) 2 cap TIDPC PO 02/27/17 09:30 02/28/17 18:40 (Hydrodiuril) 25 mg DAILY PO 02/27/17 09:00 02/28/17 08:05 (Restoril) 30 mg HS PRN PO 02/27/17 08:30 02/28/17 23:30 Acetaminophen/ Hydrocodone Bitart 1 tab 1 tab Q6HR PRN PO 02/27/17 08:45 02/28/17 16:05 (NS 1000 ml Inj) 1,000 ml @ 75 mls/hr [id number] IV 02/27/17 14:00 03/01/17 06:21 (Protonix Inj) 40 mg Q24H IV PUSH 02/28/17 14:00 02/28/17 13:05 (Ventolin Hfa Inh) 2 puff Q6H PRN INH 02/27/17 14:15 02/27/17 16:43 (Symbicort 160-4.5 Inh) 1 puff Q12HR INH 02/27/17 21:00 02/28/17 23:18 (Lopressor) 50 mg Q12HR PO 02/27/17 21:00 02/28/17 08:05 (Carafate Liq) 1 gm ACHS PO 02/27/17 21:00 03/01/17 06:17 (Prevacid Odt) 30 mg BID PO 02/27/17 21:00 02/28/17 23:20 (Dilaudid Pf Inj) 0.5 mg Q4H PRN IV PUSH 02/28/17 18:45 03/01/17 04:06 Vital Signs / I&O Vital Signs Date Time Temp Pulse Resp B/P Pulse Ox O2 Delivery O2 Flow Rate FiO2 03/01/17 07:16 97.4 66 16 121/59 98 03/01/17 04:13 66 03/01/17 03:55 98.0 69 16 126/59 99 03/01/17 03:05 66 112/56 03/01/17 02:20 98.1 66 15 104/52 99 03/01/17 00:40 63 02/28/17 23:51 97.2 62 16 119/55 100 02/28/17 21:29 98.1 62 17 124/59 96 02/28/17 19:49 97.3 60 17 132/66 98 02/28/17 19:03 95 21 02/28/17 12:35 73 16 107/62 94 02/28/17 12:25 72 16 101/52 96 02/28/17 12:15 97.4 70 16 106/53 96 02/28/17 11:15 97.4 58 18 124/69 98 I/O 02/28/17 02/28/17 02/28/17 03/01/17 03/01/17 03/01/17 07:00 15:00 23:00 07:00 15:00 23:00 Intake Total 800 ml 480 ml Output Total 1000 ml Balance 800 ml -520 ml Intake Oral 480 ml Other 800 ml Output Urine Total 1000 ml # Voids 4 1 Physical Exam Alert, NAD Neck no JVD Chest Clear CV S1S2 RRR No edema Laboratory Laboratory Tests Test 02/26/17 02/27/17 02/27/17 02/27/17 19:25 01:02 19:41 21:50 Prothrombin Time 10.4 SEC Prothromb Time International 0.9 RATIO Ratio Activated Partial 27.6 SEC Thromboplast Time Urine Color YELLOW Urine Turbidity CLEAR Urine pH 6.5 Urine Specific [place] 1.025 Urine Protein NEG mg/dL Urine Glucose (UA) NEG mg/dL Urine Ketones NEG mg/dL Urine Occult Blood NEG Urine Nitrite NEG Urine Bilirubin NEG Urine Urobilinogen 2.0 MG/DL Urine Leukocyte Esterase NEG Urine RBC LESS THAN 1 /hpf Urine WBC 1 /hpf Urine Squamous Epithelial <1 /hpf Cells Urine Mucus FEW /lpf Microscopic Urinalysis Comment CULT NOT INDICATED Total Bilirubin 0.3 MG/DL Aspartate Amino Transf 11 U/L (AST/SGOT) Alanine Aminotransferase 18 U/L (ALT/SGPT) Alkaline Phosphatase 101 U/L B-Type Natriuretic Peptide 31 PG/ML Total Protein 8.0 GM/DL Albumin 3.8 GM/DL Lipase 88 U/L Total Creatine Kinase 140 U/L Creatine Kinase MB 1.5 NG/ML Troponin I LESS THAN 0.02 NG/ML White Blood Count 4.8 TH/MM3 Red Blood Count 3.90 MIL/MM3 Hemoglobin 10.8 GM/DL Hematocrit 34.1 % Mean Corpuscular Volume 87.4 FL Mean Corpuscular Hemoglobin 27.7 PG Mean Corpuscular Hemoglobin 31.7 % Concent Red Cell Distribution Width 16.6 % Platelet Count 293 TH/MM3 Mean Platelet Volume 7.7 FL Neutrophils (%) (Auto) 45.6 % Lymphocytes (%) (Auto) 33.0 % Monocytes (%) (Auto) 10.5 % Eosinophils (%) (Auto) 9.2 % Basophils (%) (Auto) 1.7 % Neutrophils # (Auto) 2.2 TH/MM3 Lymphocytes # (Auto) 1.6 TH/MM3 Monocytes # (Auto) 0.5 TH/MM3 Eosinophils # (Auto) 0.4 TH/MM3 Basophils # (Auto) 0.1 TH/MM3 CBC Comment DIFF FINAL Differential Comment Sodium Level 134 MEQ/L Potassium Level 3.6 MEQ/L Chloride Level 106 MEQ/L Carbon Dioxide Level 19.3 MEQ/L Anion Gap 9 MEQ/L Blood Urea Nitrogen 14 MG/DL Creatinine 0.57 MG/DL Estimat Glomerular Filtration 175 ML/MIN Rate Random Glucose 85 MG/DL Calcium Level 8.3 MG/DL Magnesium Level 1.8 MG/DL Assessment and Plan Problem List: (1) GI bleeding Assessment and Plan: Will avoid cardiac cath this admit (2) Chest pain Assessment and Plan: hard to interpret with psychiatric overlay. Doubt cardiac. In view of GI bleed treat medically (3) Tobacco abuse Assessment and Plan: counseled (4) Hypertension Assessment and Plan: controlled Assessment and Plan Recommend medical therapy - will sign off and F/U prn. Also, add statin/ check lipids Problem Qualifiers (1) Chest pain: Qualified Code: R07.9 - Chest pain, unspecified type Nehemias Hernandez MD Mar 01, 2017 09:02
[2017-03-01] MEDS: LIPASE/PROTEASE/AMYLASE (24,000/76,000/120,000) CAP PO SCH ×3 (09:15→17:14)
--- NOTE | 2017-03-01 10:46 | HHI.GIFU ---
Subjective Remarks Resting in bed. States he continues to have some anterior left sided chest pain and epigastric abdominal pain that radiates to the RUQ. He is not having any active bleeding at this time. He would like his diet advanced. D/W patient further evaluation with colonoscopy in am- he is agreeable. Objective Vitals I&O Vital Signs Date Time Temp Pulse Resp B/P Pulse Ox O2 Delivery O2 Flow Rate FiO2 03/01/17 07:16 97.4 66 16 121/59 98 03/01/17 04:13 66 03/01/17 03:55 98.0 69 16 126/59 99 03/01/17 03:05 66 112/56 03/01/17 02:20 98.1 66 15 104/52 99 03/01/17 00:40 63 02/28/17 23:51 97.2 62 16 119/55 100 02/28/17 21:29 98.1 62 17 124/59 96 02/28/17 19:49 97.3 60 17 132/66 98 02/28/17 19:03 95 21 02/28/17 12:35 73 16 107/62 94 02/28/17 12:25 72 16 101/52 96 02/28/17 12:15 97.4 70 16 106/53 96 02/28/17 11:15 97.4 58 18 124/69 98 I/O 02/28/17 02/28/17 02/28/17 03/01/17 03/01/17 03/01/17 07:00 15:00 23:00 07:00 15:00 23:00 Intake Total 800 ml 480 ml Output Total 1000 ml Balance 800 ml -520 ml Intake Oral 480 ml Other 800 ml Output Urine Total 1000 ml # Voids 4 1 Imaging Last Impressions Myocardial Perfusion Scan Nuc Med 02/27/17 0000 Signed Impressions: Service Date/Time: Monday, February 27, 2017 09:25 - CONCLUSION: Relatively small sized moderate severity posterobasal perfusion abnormality with moderate redistribution RISK CATEGORY: Low (<1%% Annual Mortality Rate) Peter Bruno MD Chest X-Ray 02/26/17 1838 Signed Impressions: Service Date/Time: Sunday, February 26, 2017 18:35 - CONCLUSION: No acute disease. Bala Franco MD Foot X-Ray 02/26/17 0000 Signed Impressions: Service Date/Time: Sunday, February 26, 2017 18:47 - CONCLUSION: 1. Mild soft tissue swelling with no acute fracture or malalignment. 2. Small spur off the inferior calcaneus. Bala Franco MD Physical Exam HEENT: Normocephalic; atraumatic; no jaundice. CHEST: CTA CARDIAC: RRRs. ABDOMEN: Soft, nondistended, epigastric tenderness; no hepatosplenomegaly; bowel sounds are present in all four quadrants. EXTREMITIES: No clubbing, cyanosis, or edema. SKIN: Normal; no rash; no jaundice. SECRETARIAL TEACHER: No focal deficits; alert and oriented times three. Assessment and Plan Plan ASSESSMENT: - Hematemesis, melena. (+) Hemoccult stool. EGD (02/28/17)-----> Multiple small bowel AVMs as well as gastric AVMs, most of them were ablated. There are probably a few more present. These are probably the cause for his repeated GI bleeds, the patient has probable singe-vessel coronary artery disease and cardiac cath is being considered. PPI. - Anemia, mild. EGD as above. Will plan for colonoscopy in am to assess for any other AVMs. - Chronic abdominal pain. PPI. - Chest pain. S/P Cardiology evaluation, no plans for cardiac cath. PLAN - Plan for colonoscopy - Obtain consents - Clear liquids - NPO after MN - Golytely prep - PPI - Carafate - Supportive care - Further recommendations to follow based on results of above - PT seen and examined by Dr. Jerez and myself and this note is written on his behalf Jo Sarkar Mar 01, 2017 10:46
[2017-03-01 10:58] LABS: AUTOMATED NEUTROPHIL # 3.3 TH/MM3 (1.8-7.7); BASOPHIL % 0.8 % (0.0-2.0); EOSINOPHIL # 0.4 TH/MM3 (0-0.4); EOSINOPHIL % 6.7 % (0.0-4.0); HEMATOCRIT 39.3 % (39.0-51.0); HEMO FLAGS DIFF FINAL; LYMPH % 22.4 % (9.0-44.0); LYMPHOCYTE # 1.2 TH/MM3 (1.0-4.8); MEAN CELL VOLUME 87.8 FL (80.0-100.0); MEAN CORPUSCULAR HEMOGLOBIN 27.9 PG (27.0-34.0); MEAN CORPUSCULAR HGB CONC 31.8 % (32.0-36.0); MONO % 7.4 % (0.0-8.0); NEUT % 62.7 % (16.0-70.0); PLATELET COUNT 309 TH/MM3 (150-450); RED BLOOD COUNT 4.48 MIL/MM3 (4.50-5.90); WHITE BLOOD COUNT 5.2 TH/MM3 (4.0-11.0)
[2017-03-01 11:09] LABS: BICARBONATE 20.3 MEQ/L (21.0-32.0); POTASSIUM 3.9 MEQ/L (3.5-5.1)
[2017-03-01] MEDS: PANTOPRAZOLE SODIUM 40 MG VIAL IV PUSH SCH (12:55)
[2017-03-01] MEDS: ALPRAZolam 1 MG TAB PO PRN (14:36)
[2017-03-01] MEDS ORDERED: PEG (High)/E-LYTE SOLN 4000 ML BTL PO ONE (16:00)
[2017-03-01 16:05] LABS: HDL CHOLESTEROL 46.2 MG/DL (40.0-60.0)
[2017-03-01] MEDS: TEMAZEPAM 15 MG CAP PO PRN (23:04)
[2017-03-02] VITALS (8 sets, daily range): BP systolic 118–144; BP diastolic 59–77; PULSE 57–71; RESP 16–18; TEMP 97.6–98; O2SAT 97–99
[2017-03-02] MEDS: HYDROmorphone HCL PF 1 MG/ML VIAL IV PUSH PRN ×2 (03:52→11:32)
[2017-03-02] MEDS: SUCRALFATE 1 GM/10 ML CUP PO SCH ×2 (06:52→11:33)
--- NOTE | 2017-03-02 08:33 | HHI.PR ---
Subjective Remarks Follow-up for abdominal pain, atypical chest pain, GI bleeding. Patient reports continued abdominal pain located diffusely across the upper abdomen, but denies any radiation into the chest today. He reports occasional nausea but no vomiting. He finished his bowel prep for colonoscopy overnight, bowel movements reportedly mostly clear mixed with brown stool. He denies any fevers or chills. Discussed possible discharge today if cleared by gastroenterology. Objective Vitals Vital Signs Date Time Temp Pulse Resp B/P Pulse Ox O2 Delivery O2 Flow Rate FiO2 03/02/17 08:03 98.0 71 16 123/59 99 03/02/17 07:34 99 21 03/02/17 06:50 69 123/59 03/02/17 05:23 98.0 68 18 118/64 97 03/02/17 03:50 126/68 03/01/17 22:06 97.7 70 18 137/66 100 03/01/17 21:37 98.5 74 18 138/78 94 03/01/17 16:51 97.8 69 16 110/53 98 03/01/17 11:30 97.8 74 16 135/63 99 03/01/17 09:31 16 I/O 03/01/17 03/01/17 03/01/17 03/02/17 03/02/17 03/02/17 07:00 15:00 23:00 07:00 15:00 23:00 Output Total 1000 ml 1000 ml Balance -1000 ml -1000 ml Output Urine Total 1000 ml 1000 ml # Bowel Movements 1 Result Diagram: 03/01/17 1030 03/01/17 1030 Imaging Last Impressions Myocardial Perfusion Scan Nuc Med 02/27/17 0000 Signed Impressions: Service Date/Time: Monday, February 27, 2017 09:25 - CONCLUSION: Relatively small sized moderate severity posterobasal perfusion abnormality with moderate redistribution RISK CATEGORY: Low (<1%% Annual Mortality Rate) Peter Bruno MD Chest X-Ray 02/26/17 1838 Signed Impressions: Service Date/Time: Sunday, February 26, 2017 18:35 - CONCLUSION: No acute disease. Bala Franco MD Foot X-Ray 02/26/17 0000 Signed Impressions: Service Date/Time: Sunday, February 26, 2017 18:47 - CONCLUSION: 1. Mild soft tissue swelling with no acute fracture or malalignment. 2. Small spur off the inferior calcaneus. Bala Franco MD Objective Remarks GENERAL: Well-nourished, well-developed male patient in NAD. SKIN: Warm and dry. No rash. HEENT: Normocephalic. Atraumatic. Pupils equal and round. Mucous membranes pink and moist. NECK: Supple. Trachea midline. CARDIOVASCULAR: Regular rate and rhythm. S1, S2 noted. No murmur appreciated. RESPIRATORY: No accessory muscle use. Clear to auscultation. Breath sounds equal bilaterally. GASTROINTESTINAL: Abdomen soft, non-tender (with distraction), nondistended. Normoactive bowel sounds x4. MUSCULOSKELETAL: No obvious deformities. Extremities without clubbing, cyanosis , or edema. NEUROLOGICAL: Awake and alert. No obvious cranial nerve deficits. Motor grossly within normal limits. Normal speech. PSYCHIATRIC: Flat affect, cooperative mood today; insight and judgment normal. Procedures 02/28/17 - EGD by Dr. Jerez: esophagus was normal; Multiple small bowel AVMs as well as gastric AVMs, most of them were ablated. There are probably a few more present. These are probably the cause for his repeated GI bleeds. 03/02/17 - Colonoscopy by Dr. Jerez: showed multiple AVMs, cauterized. Medications and IVs Current Medications Medications (Trade) Dose Ordered Sig/Juan José Route Start Time Stop Time Status Last Admin (NS Flush) 2 ml UNSCH PRN IV FLUSH 02/26/17 21:15 (NS Flush) 2 ml BID IV FLUSH 02/27/17 09:00 03/01/17 22:09 (Tylenol) 500 mg Q4H PRN PO 02/26/17 21:15 (Zofran Inj) 4 mg Q6H PRN IV 02/26/17 21:15 02/27/17 07:09 (Xanax) 1 mg BID PRN PO 02/27/17 08:00 03/01/17 14:36 (Norvasc) 5 mg DAILY PO 02/27/17 09:00 02/28/17 08:05 (Flomax) 0.4 mg BID PO 02/27/17 09:00 03/01/17 22:29 (Creon 24-76-120) 2 cap TIDPC PO 02/27/17 09:30 03/01/17 17:14 (Hydrodiuril) 25 mg DAILY PO 02/27/17 09:00 02/28/17 08:05 (Restoril) 30 mg HS PRN PO 02/27/17 08:30 03/01/17 23:04 Acetaminophen/ Hydrocodone Bitart 1 tab 1 tab Q6HR PRN PO 02/27/17 08:45 02/28/17 16:05 (NS 1000 ml Inj) 1,000 ml @ 75 mls/hr [id number] IV 02/27/17 14:00 03/01/17 22:08 (Protonix Inj) 40 mg Q24H IV PUSH 02/28/17 14:00 03/01/17 12:55 (Ventolin Hfa Inh) 2 puff Q6H PRN INH 02/27/17 14:15 02/27/17 16:43 (Symbicort 160-4.5 Inh) 1 puff Q12HR INH 02/27/17 21:00 03/01/17 22:09 (Carafate Liq) 1 gm ACHS PO 02/27/17 21:00 03/02/17 06:52 (Prevacid Odt) 30 mg BID PO 02/27/17 21:00 03/01/17 22:29 (Lipitor) 10 mg DAILY PO 03/02/17 09:00 (Dilaudid Pf Inj) 0.2 mg Q4H PRN IV PUSH 03/01/17 22:45 03/02/17 03:52 (Lopressor) 12.5 mg Q12HR PO 03/02/17 09:00 A/P Assessment and Plan 62-year-old male with past medical history of HTN, BPH, GIB, COPD, chronic pancreatitis who presented with chest pain. He was found to have a positive stress test by chest pain center and admitted to the hospitalist service. He also reported hematemesis and dark stools after admission, and was reportedly Hemoccult positive. Chest pain: Cardiac enzymes negative 2. EKG showed NSR. Nuclear Stress test showed relatively small size moderate severity posterior basal perfusion abnormality with moderate redistribution. Cardiology consulted, per Dr. Hernandez , doubt pain cardiac in origin, likely related to GI, no plans for cardiac catheterization this admission. Continue metoprolol. Holding aspirin for now with bleeding. Echo with normal EF 50-55%. GI bleeding: History of EGD with AVMs ablated last week. Hemoglobin 12.1 --> 10.8, previously 11.6 on 02/19/17. Repeat H&H pending. GI consulted, performed EGD which showed multiple gastric and small bowel AVMs that were ablated, likely cause of recurrent GI bleeding. Continue full liquids, diet per GI. Continue PPI, although patient reports issues with multiple antireflux medications. Started on Carafate. GI planning for colonoscopy today. Suspected personality disorder: Recently admitted to psychiatry last week for possible brief psychotic episode. Psychiatry was reconsulted, seen by Dr. Park, patient possibly has underlying personality disorder and there is no indication for acute psychiatric intervention at this time. The patient's difficult personality makes appropriate care challenging. Other chronic medical conditions include chronic pain, anxiety, COPD, HTN, BPH, chronic pancreatitis: Stable at this time and will continue home medications as indicated. DVT prophylaxis: SCDs. No chemical prophylaxis with GI bleeding. Discharge Planning 0830hrs: Hopefully discharge today after colonoscopy if cleared by GI and patient tolerating oral intake. 1300hrs: Colonoscopy completed with cauterization of multiple AVMs. Cleared by GI for discharge this afternoon. Ok to restart anticoagulation with aspirin 81mg only. Will discharge if patient tolerated lunch. Brenda Daigle PA-C Mar 02, 2017 8:33 am DVT prophylaxis: SCDs. No chemical prophylaxis with GI bleeding. Discharge Planning Hopefully discharge today after colonoscopy if cleared by GI and patient tolerating oral intake. Brenda Daigle PA-C Mar 02, 2017 8:33 am
[2017-03-02] MEDS: SODIUM CHLOR 0.9% 1000 ML INJ 1,000 ML IV SCH (08:40)
[2017-03-02] MEDS ORDERED: METOPROLOL TARTRATE 25 MG TAB PO SCH (09:00)
[2017-03-02] MEDS ORDERED: ATORVASTATIN 10 MG TAB PO SCH (09:00)
[2017-03-02] MEDS ORDERED: PROPOFOL 200 MG/20 ML AMP IV ONE (09:52)
[2017-03-02] MEDS ORDERED: GLUCAGON 1 MG/ML VIAL IV ONE ×2 (10:01→10:10)
--- NOTE | 2017-03-02 10:43 | HHI.GIFU ---
Subjective Remarks Immediate postop note: Colonoscopy with ablation of AVMs Indication: GI bleed, recurrent Meds: MAC Findings: TI normal Cecum contained multiple AVMs at least 10 ablated with the bipolar cautery gold probe. Rest of colon and rectum: normal Objective Vitals I&O Vital Signs Date Time Temp Pulse Resp B/P Pulse Ox O2 Delivery O2 Flow Rate FiO2 03/02/17 08:03 98.0 71 16 123/59 99 03/02/17 07:34 99 21 03/02/17 06:50 69 123/59 03/02/17 05:23 98.0 68 18 118/64 97 03/02/17 03:50 126/68 03/02/17 00:29 71 03/01/17 22:06 97.7 70 18 137/66 100 03/01/17 21:37 98.5 74 18 138/78 94 03/01/17 20:21 69 03/01/17 16:51 97.8 69 16 110/53 98 03/01/17 11:30 97.8 74 16 135/63 99 I/O 03/01/17 03/01/17 03/01/17 03/02/17 03/02/17 03/02/17 07:00 15:00 23:00 07:00 15:00 23:00 Output Total 1000 ml 1000 ml Balance -1000 ml -1000 ml Output Urine Total 1000 ml 1000 ml # Bowel Movements 1 Physical Exam HEENT: Normocephalic; atraumatic; no jaundice. CHEST: CTA CARDIAC: RRRs. ABDOMEN: Soft, nondistended, epigastric tenderness; no hepatosplenomegaly; bowel sounds are present in all four quadrants. EXTREMITIES: No clubbing, cyanosis, or edema. SKIN: Normal; no rash; no jaundice. COMMUNITY REPRESENTATIVE: No focal deficits; alert and oriented times three. Assessment and Plan Plan ASSESSMENT: - Hematemesis, melena. (+) Hemoccult stool. EGD (02/28/17)-----> Multiple small bowel AVMs as well as gastric AVMs, most of them were ablated. There are probably a few more present. These are probably the cause for his repeated GI bleeds, the patient has probable singe-vessel coronary artery disease and cardiac cath is being considered. PPI. - Anemia, mild. EGD as above. Will plan for colonoscopy in am to assess for any other AVMs. - Chronic abdominal pain. PPI. - Chest pain. S/P Cardiology evaluation, no plans for cardiac cath. - Colonoscopy 03/02 showed multiple cecal AVMs ablated with gold probe. No AVMs in the TI PLAN - Regular diet - PPI - Carafate - Supportive care - No anticoagulants other than baby aspirin daily for one week. After that he should be able to tolerate anticoagulants/antiplatelet agents without bleeding. -OK for discharge home this afternoon if otherwise stable. Aashish Jerez MD Mar 02, 2017 10:43
[2017-03-02] MEDS: ONDANSETRON HCL 4 MG/2 ML VIAL IV PRN (11:33)
[2017-03-02] MEDS: SODIUM CHLORIDE 0.9% FLUSH 10 ML FLUSH IV FLUSH SCH (11:36)
[2017-03-02] MEDS: amLODIPine BESYLATE 5 MG TAB PO SCH (11:45)
[2017-03-02] MEDS: HYDROCHLOROTHIAZIDE 25 MG TAB PO SCH (11:46)
[2017-03-02] MEDS: TAMSULOSIN HCL 0.4 MG CAP PO SCH (11:46)
[2017-03-02] MEDS: LANSOPRAZOLE SOLUTAB 30 MG TAB PO SCH (11:50)
[2017-03-02] MEDS: BUDESONIDE-FORMOTEROL 160/4.5 MCG INHALER INH SCH (11:57)
[2017-03-02] MEDS: LIPASE/PROTEASE/AMYLASE (24,000/76,000/120,000) CAP PO SCH ×2 (13:06→13:30)
[2017-03-02] MEDS ORDERED: PREV30TA3 PO (13:21)
[2017-03-02] MEDS ORDERED: METO25TA3 PO (13:21)
[2017-03-02] MEDS ORDERED: LIPI10TA PO (13:21)
[2017-03-02] MEDS ORDERED: SUCR1S PO (13:21)
--- NOTE | 2017-03-02 13:23 | HHI.DCPOC ---
Discharge Care Plan Diagnosis: (1) GI bleeding (2) AVM (arteriovenous malformation) of colon (3) Arteriovenous malformation small bowel (4) Chest pain Goals to Promote Your Health * To prevent worsening of your condition and complications * To maintain your health at the optimal level Directions to Meet Your Goals Take your medications as prescribed Follow your dietary instruction Follow activity as directed Keep your appointments as scheduled Take your immunizations and boosters as scheduled If your symptoms worsen call your PCP, if no PCP go to Urgent Care Center or Emergency Room Smoking is Dangerous to Your Health. Avoid second hand smoke Call the 24-hour hour crisis hotline for domestic abuse at Brenda Daigle PA-C Mar 02, 2017 13:23
[2017-03-02] MEDS: PANTOPRAZOLE SODIUM 40 MG VIAL IV PUSH SCH (14:35)
--- NOTE | 2017-03-02 15:09 | HHI.DS ---
Discharge Summary Admission Date Feb 26, 2017 at 21:14 Discharge Date: Mar 02, 2017 Admitting Diagnosis chest pain (1) Abdominal pain ICD Code: R10.9 Diagnosis: Principal (2) GI bleeding ICD Code: K92.2 Diagnosis: Principal (3) Arteriovenous malformation small bowel ICD Code: Q27.33 Diagnosis: Secondary (4) AVM (arteriovenous malformation) of colon ICD Code: Q27.33 Diagnosis: Secondary (5) Benign hypertension ICD Code: I10 Diagnosis: Secondary (6) Hyperlipidemia ICD Code: E78.5 Diagnosis: Secondary (7) Chest pain ICD Code: R07.9 Diagnosis: Secondary Procedures 02/28/17 - EGD by Dr. Jerez: esophagus was normal; Multiple small bowel AVMs as well as gastric AVMs, most of them were ablated. There are probably a few more present. These are probably the cause for his repeated GI bleeds. 03/02/17 - Colonoscopy by Dr. Jerez: showed multiple AVMs, cauterized. Brief History - From Admission 62-year-old male that presents to the ED with a complaint of a chest discomfort that began 2 days ago. He states is not unusual for him to get a chest discomfort. He states he has this 2-3 times a week but we easily take an aspirin will go away quickly. He tried aspirin when it began and it did not improve the symptoms. He tried again yesterday morning which also did not improve the symptoms. He decided to come in yesterday afternoon as the symptoms persisted. The discomfort is currently present but has improved with morphine. In the ER note and stated that he was complaining of abdominal pain and foot pain but he is not complaining about at this time. He states he rode a bicycle about 4 mild yesterday which did not worsen the symptoms. CBC/BMP: 03/01/17 1030 03/01/17 1030 Significant Findings Laboratory Tests Test 02/27/17 02/27/17 03/01/17 19:41 21:50 10:30 Red Blood Count 3.90 MIL/MM3 4.48 MIL/MM3 (4.50-5.90) (4.50-5.90) Hemoglobin 10.8 GM/DL 12.5 GM/DL (13.0-17.0) (13.0-17.0) Hematocrit 34.1 % (39.0-51.0) Mean Corpuscular Hemoglobin 31.7 % 31.8 % Concent (32.0-36.0) (32.0-36.0) Monocytes (%) (Auto) 10.5 % (0.0-8.0) Eosinophils (%) (Auto) 9.2 % (0.0-4.0) 6.7 % (0.0-4.0) Sodium Level 134 MEQ/L 134 MEQ/L (136-145) (136-145) Carbon Dioxide Level 19.3 MEQ/L 20.3 MEQ/L (21.0-32.0) (21.0-32.0) Creatinine 0.57 MG/DL (0.60-1.30) Calcium Level 8.3 MG/DL (8.5-10.1) Triglycerides Level 201 MG/DL (42-150) Cholesterol Level 211 MG/DL (120-200) LDL Cholesterol 125 MG/DL (0-99) Imaging Last Impressions Myocardial Perfusion Scan Nuc Med 02/27/17 0000 Signed Impressions: Service Date/Time: Monday, February 27, 2017 09:25 - CONCLUSION: Relatively small sized moderate severity posterobasal perfusion abnormality with moderate redistribution RISK CATEGORY: Low (<1%% Annual Mortality Rate) Peter Bruno MD Chest X-Ray 02/26/17 1838 Signed Impressions: Service Date/Time: Sunday, February 26, 2017 18:35 - CONCLUSION: No acute disease. Bala Franco MD Foot X-Ray 02/26/17 0000 Signed Impressions: Service Date/Time: Sunday, February 26, 2017 18:47 - CONCLUSION: 1. Mild soft tissue swelling with no acute fracture or malalignment. 2. Small spur off the inferior calcaneus. Bala Franco MD PE at Discharge GENERAL: Well-nourished, well-developed male patient in NAD. SKIN: Warm and dry. No rash. HEENT: Normocephalic. Atraumatic. Pupils equal and round. Mucous membranes pink and moist. NECK: Supple. Trachea midline. CARDIOVASCULAR: Regular rate and rhythm. S1, S2 noted. No murmur appreciated. RESPIRATORY: No accessory muscle use. Clear to auscultation. Breath sounds equal bilaterally. GASTROINTESTINAL: Abdomen soft, non-tender (with distraction), nondistended. Normoactive bowel sounds x4. MUSCULOSKELETAL: No obvious deformities. Extremities without clubbing, cyanosis , or edema. NEUROLOGICAL: Awake and alert. No obvious cranial nerve deficits. Motor grossly within normal limits. Normal speech. PSYCHIATRIC: Flat affect, cooperative mood today; insight and judgment normal. Hospital Course 62-year-old male with past medical history of HTN, BPH, GIB, COPD, chronic pancreatitis who presented with chest pain. He was found to have a positive stress test by chest pain center and admitted to the hospitalist service. He also reported hematemesis and dark stools after admission, and was Hemoccult positive. Atypical Chest pain: Patient initially admitted to chest pain center, ACS ruled out with negative serial cardiac enzymes and EKG without acute ischemic changes , however Nuclear Stress test showed relatively small size moderate severity posterior basal perfusion abnormality with moderate redistribution. Patient was transferred to hospitalists, Cardiology was consulted, per Dr. Hernandez, doubt pain cardiac in origin, likely related to GI, no plans for cardiac catheterization this admission. Continue metoprolol. Holding aspirin for now with bleeding. Echo with normal EF 50-55%. Chest pains resolved, suspect GI related. GI bleeding: History of EGD with AVMs ablated last week. Had episode of hematemesis and dark stools hemoccult+ after admission. Hemoglobin trended 12.1 --> 10.8 --> 12.5, previously 11.6 on 02/19/17. GI consulted, performed EGD 02/28 which showed multiple gastric and small bowel AVMs that were ablated, likely cause of recurrent GI bleeding. Continued on full liquids, diet per GI. Continue PPI, although patient reports issues with multiple antireflux medications. Started on Carafate. GI concerned for ongoing lower GI bleeding, repeat colonoscopy done today 03/02 which showed multiple AVMs that were cauterized. The patient's diet was advanced, and he was cleared for discharge by GI. Ok to restart anticoagulation with aspirin 81mg only. Suspected personality disorder: Recently admitted to psychiatry last week for possible brief psychotic episode. Psychiatry was reconsulted, seen by Dr. Xavier, patient possibly has underlying personality disorder and there is no indication for acute psychiatric intervention at this time. The patient's difficult personality makes appropriate care challenging. Pt Condition on Discharge: Stable Discharge Disposition: Discharge Home Discharge Time: > 30 minutes Discharge Instructions DIET: Follow Instructions for: Heart Healthy Diet Activities you can perform: Regular-No Restrictions Follow up Referrals: Gastroenterology - 1 Week @ [facility] PCP Follow-up - 1 Week New Medications: Atorvastatin (Lipitor) 10 Mg Tab 10 MG PO DAILY Cholesterol Management #30 TAB Lansoprazole ODT (Prevacid Solutab ODT) 30 Mg Tab 30 MG PO BID Manage Heartburn #60 TAB Metoprolol Tartrate (Metoprolol Tartrate) 25 Mg Tab 12.5 MG PO Q12HR Blood Pressure Management #60 TAB Sucralfate Liq (Sucralfate Liq) 1 Gm/10 Ml Dolores 1 GM PO ACHS gastritis Days 10 ML Continued Medications: Albuterol 18 GM Inh (Ventolin Hfa 18 GM Inh) 90 Mcg/Act Aer 2 PUFF INH Q6H PRN SHORTNESS OF BREATH #1 INHALER Alprazolam (Xanax) 1 Mg Tab 1 MG PO BID PRN ANXIETY #14 Ref 0 TAB Amlodipine (Norvasc) 5 Mg Tab 5 MG PO DAILY #30 TAB Budesonide-Formoterol Inh (Symbicort Inh) 160-4.5 Mcg/Act Aero 1 PUFF INH Q12HR #1 Ref 0 INHALER Hydrochlorothiazide (Hydrochlorothiazide) 25 Mg Tab 25 MG PO DAILY #30 Ref 0 TAB Hydrocodone-Acetaminophen (Lortab) 10-325 Mg Tab 1 TAB PO Q6HR do not take this medicine if you will drive a car or use a machine , only use it when resting at home PRN PAIN #0 Ref 0 TAB Magnesium Hydroxide Liq (Milk of Magnesia Liq) 400 Mg/5 Ml Susp 30 ML PO BID PRN INDIGESTION OR UPSET STOMACH #1 Ref 0 BOTTLE Pancrelipase (Zenpep) 40,000-136,000-218,000 Units Cap 1 CAP PO TIDPC Digestive Aid #90 Ref 0 CAP Tamsulosin (Flomax) 0.4 Mg Cap 0.4 MG PO BID #60 CAP Temazepam (Temazepam) 30 Mg Cap 30 MG PO HS PRN INSOMNIA #7 Ref 0 CAP Discontinued Medications: Albuterol 6.7 GM Inh (Proventil Hfa 6.7 GM Inh) 90 Mcg/Act Aer 2 PUFF INH Q6H PRN SHORTNESS OF BREATH #1 Ref 0 INHALER Metoprolol Succinate ER 24 HR (Metoprolol Succinate ER 24 HR) 50 Mg Tab 50 MG PO BID Blood Pressure Management #30 Ref 0 TAB Brenda Daigle PA-C Mar 02, 2017 15:09
--- NOTE | 2017-03-02 16:14 | MR ---
cc: CRISTOFER SMITH HAROLD H. MD DATE OF SURGERY 03/02/17 PROCEDURE Colonoscopy with ablation of AVMs. INDICATION GI bleed. REFERRING PHYSICIAN Dr. Smith PROCEDURE After informed consent was obtained the patient was placed in the left side down position. He was sedated by the anesthesia service. After adequate sedation was achieved digital rectal examination was performed, was normal. The Pentax video colonoscope was inserted in the anal canal and advanced to the colon reaching the base of the cecum. There were multiple AVMs present there. At least 10 AVMs were ablated with the bipolar cautery probe. All the AVMs that were seen were ablated. The scope was then advanced up into the terminal ileum for a few centimeters it was then withdrawn, slowly examining the mucosal surfaces carefully. Retroflex exam was not performed as it was performed on a recent colonoscopy. The scope was withdrawn out through the anal canal. The procedure was terminated. He tolerated the procedure well and was returned to the recovery area in good condition. FINDINGS 1. The cecum contained multiple AVMs, at least 10 and these were all ablated with the bipolar cautery probe. 2. The terminal ileum was normal. 3. The rest of the colon and rectum were normal. IMPRESSION Multiple cecal AVMs, all ablated this examination. RECOMMENDATIONS 1. The patient may begin a regular diet. 2. If he is otherwise stable he may be discharged home this afternoon. 3. He should continue proton pump inhibitor and Carafate. 4. He should not take any anticoagulants other than baby aspirin daily for 1 week. After that he should be able to tolerate anticoagulants, antiplatelet agents without further bleeding. 5. In 1 week he should be stable for cardiac catheterization should it be deemed indicated. Aashish Jerez MD [facility]O /10:52 AM /4:07 PM
== END 2017-03-02 16:35 | disposition home health service (06) ==
LOC: NEPC 16:25 → NEDA 21:14 → NEPFCDU 22:12
PROVIDERS: ADMIT Hospitalist; ATTEND Hospitalist
DX: R07.89 Other chest pain (principal); N40.0 Benign prostatic hyperplasia without lower urinary tract symptoms; R00.1 Bradycardia, unspecified; Q27.33 Arteriovenous malformation of digestive system vessel; K92.1 Melena; K92.0 Hematemesis; S90.812A Abrasion, left foot, initial encounter; M79.672 Pain in left foot; R06.00 Dyspnea, unspecified; R51 Headache; I25.119 Atherosclerotic heart disease of native coronary artery with unspecified angina pectoris; I11.0 Hypertensive heart disease with heart failure; I50.9 Heart failure, unspecified; I25.2 Old myocardial infarction; K86.1 Other chronic pancreatitis; K21.9 Gastro-esophageal reflux disease without esophagitis; E78.5 Hyperlipidemia, unspecified; J44.9 Chronic obstructive pulmonary disease, unspecified; K29.70 Gastritis, unspecified, without bleeding; D64.9 Anemia, unspecified; R94.39 Abnormal result of other cardiovascular function study; K25.9 Gastric ulcer, unspecified as acute or chronic, without hemorrhage or perforation; N32.3 Diverticulum of bladder; G47.30 Sleep apnea, unspecified; F41.9 Anxiety disorder, unspecified; M19.90 Unspecified osteoarthritis, unspecified site; F17.210 Nicotine dependence, cigarettes, uncomplicated; Z79.899 Other long term (current) drug therapy; Z86.73 Personal history of transient ischemic attack (TIA), and cerebral infarction without residual deficits; Z85.46 Personal history of malignant neoplasm of prostate; Z92.3 Personal history of irradiation; X58.XXXA Exposure to other specified factors, initial encounter
CPT/HCPCS: 00740; 00810; 43239; 45384; 71010; 73630; 78452; 80048; 80053; 80061; 81001; 82550; 82552; 83690; 83735; 83880; 84484; 85025; 85610; 85730; 93005; 93017; 93306; 96374; 99285; A9502; C9113; G0378; J1170; J1610; J2270; J2405; J2785; J7030; J7120

== ENCOUNTER 2017-03-14 08:56 | Emergency (ER) | payer MEDICAID ==
[~2017-03-14] VITALS: Ht 177.8 cm; Wt 70.0 kg
[~2017-03-14 08:56] MED LIST changes: -ALBU6.7H INH; -AMLO5TAB2 PO; -CREON24 PO; -FAMO20TA2 PO; +HYDR25TA5 PO; +LIPI10TA PO; +METO25TA3 PO; -METO50TA11 PO; -OLAN2.5T PO; -PANT20TA2 PO; -PANT40TA3 PO; +PREV30TA3 PO; +SUCR1S PO
[2017-03-14 09:00] VITALS: BP 135/78; PULSE 76; RESP 18; TEMP 98.2; O2SAT 99
[2017-03-14 10:30] VITALS: BP 125/80; PULSE 80; RESP 15; O2SAT 100
[2017-03-14 10:32] LABS: AUTOMATED NEUTROPHIL # 3.5 TH/MM3 (1.8-7.7); BASOPHIL % 0.7 % (0.0-2.0); EOSINOPHIL # 0.1 TH/MM3 (0-0.4); EOSINOPHIL % 2.5 % (0.0-4.0); HEMATOCRIT 39.9 % (39.0-51.0); HEMO FLAGS DIFF FINAL; LYMPH % 23.2 % (9.0-44.0); LYMPHOCYTE # 1.2 TH/MM3 (1.0-4.8); MEAN CELL VOLUME 88.4 FL (80.0-100.0); MEAN CORPUSCULAR HEMOGLOBIN 28.2 PG (27.0-34.0); MEAN CORPUSCULAR HGB CONC 31.9 % (32.0-36.0); MONO % 7.5 % (0.0-8.0); NEUT % 66.1 % (16.0-70.0); PLATELET COUNT 365 TH/MM3 (150-450); RED BLOOD COUNT 4.51 MIL/MM3 (4.50-5.90); RED CELL DISTRIBUTION WIDTH 16.3 % (11.6-17.2); WHITE BLOOD COUNT 5.2 TH/MM3 (4.0-11.0)
[2017-03-14 10:41] LABS: APTT (PATIENT) 26.9 SEC (24.3-30.1); PROTHROMBIN TIME - PATIENT 10.9 SEC (9.8-11.6)
[2017-03-14 10:50] LABS: BLOOD, URINE NEG (NEG); GLUCOSE,URINE NEG (NEG); KETONE, URINE NEG (NEG); NITRITE,URINE NEG (NEG); PH, URINE 6.5 (5.0-8.5); URINE COLOR YELLOW (YELLW/STRAW)
[2017-03-14 10:51] LABS: ALT (GPT) 32 U/L (12-78); ANION GAP 7 MEQ/L (5-15); BICARBONATE 26.1 MEQ/L (21.0-32.0); BLOOD UREA NITROGEN 18 MG/DL (7-18); CHLORIDE 100 MEQ/L (98-107); GLOMERULAR FILTRATION RATE 109 ML/MIN (>89); POTASSIUM 4.7 MEQ/L (3.5-5.1); SODIUM (NA) 133 MEQ/L (136-145)
[2017-03-14 10:56] LABS: ALKALINE PHOSPHATASE 115 U/L (45-117); AST (GOT) 22 U/L (15-37); TOTAL BILIRUBIN ADULT 0.6 MG/DL (0.2-1.0)
[2017-03-14 11:01] LABS: MUCUS URINE RARE /lpf (OCC)
[2017-03-14 11:02] LABS: RBC, URINE 0-3 /hpf (0-3); SQUAMOUS EPITHELIAL CELL URINE > 8 /hpf (0-5); WBC, URINE 0-2 /hpf (0-5)
[2017-03-14 11:04] LABS: COMMENT (UR) CULT NOT INDICATED; CULTURE IF INDICATED CULT NOT INDICATED
[2017-03-14 11:10] VITALS: BP 125/80; PULSE 78; RESP 15; O2SAT 100
--- NOTE | 2017-03-14 11:33 | PD ---
HPI Chief Complaint: GI Complaint Time Seen by Provider: 09:39 Travel History International Travel<30 days: No Contact w/Intl Traveler<30days: No Traveled to known affect area: No History of Present Illness HPI C/O BLACK TARRY STOOLS ONSET TODAY, STATES THAT HE HAS HAD COLONOSCOPY RECENTLY BY DR WRIGHT AND HAD PROCEDURE TO STOP BLEEDING....PT DENIES MACHADO/CP/ABD PAIN PRESENTLY... PFSH Past Medical History Hx Anticoagulant Therapy: Yes Anemia: Yes Arthritis: Yes Asthma: Yes Blood Disorders: No Anxiety: Yes Depression: No Heart Rhythm Problems: No Cancer: Yes Cardiac Catheterization: Yes Cardiovascular Problems: Yes ([place], [place]) High Cholesterol: No Chest Pain: Yes Congestive Heart Failure: Yes COPD: No Cerebrovascular Accident: Yes Coronary Artery Disease: Yes Diabetes: No Diminished Hearing: No Endocrine: No Gastrointestinal Disorders: Yes (GI Bleed) GERD: Yes Genitourinary: Yes (RETENTION FROM PROSTATE ENLARGEMENT) Headaches: No Hiatal Hernia: Yes Heparin Induced Thrombocytopen: No Hypertension: Yes 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") Implanted Vascular Access Dvce: Yes Musculoskeletal: No Neurologic: Yes (CVA, TIA) Psychiatric: Yes (Anxiety HX of Alcohol Abuse/Encephalopathy) Reproductive: No Respiratory: Yes (LUNG TRANSPLANT AND PLEURISY) Immunizations Current: Yes Myocardial Infarction: Yes Pancreatitis: Yes Pneumonia: Yes Radiation Therapy: Yes Sleep Apnea: Yes Thyroid Disease: No Ulcer: Yes PNEUMOCCOCAL Vaccine (Year): 1 Past Surgical History Abdominal Surgery: Yes Body Medical Devices: TITANIUM MIKE IN LEFT HIP, BULLET IN RIGHT SHOULDER Cardiac Surgery: Yes Cholecystectomy: Yes Coronary Artery Bypass Graft: No Joint Replacement: Yes (L hip, L rotator cuff) Pacemaker: No Thoracic Surgery: Yes (lung transplant) Other Surgery: Yes (pelvic surgery , lung surgery d/t viral pneumonia) Social History Alcohol Use: No Tobacco Use: Yes Substance Use: No Allergies-Medications (Allergen,Severity, Reaction): Coded Allergies: Cardura (Verified Allergy, Severe, SOB,CHEST PAIN, 03/14/17) Cipro (Verified Allergy, Severe, RASH, SWOLLEN FACE, 03/14/17) Codeine (Verified Allergy, Severe, sob, 03/14/17) Famotidine (Verified Allergy, Severe, MADE HIM SUICIDAL, 03/14/17) Imodium (Verified Allergy, Severe, rash, 03/14/17) BROKE OUT IN RASH, AND SWELLING AROUND NECK Nonsteroidal Anti-Inflammatory Agts (Verified Allergy, Severe, 03/14/17) Protonix (Verified Allergy, Severe, MADE HIM SUICIDAL, 03/14/17) Spironolactone (Verified Allergy, Severe, Bleeding, 03/14/17) Fentanyl (Verified Allergy, Intermediate, rash, 03/14/17) Morphine (Verified Allergy, Intermediate, Rash, 03/14/17) Contrast Media (Verified Adverse Reaction, Severe, BLISTERS AND EDEMA AT SITE, 03/14/17) IV CONTRAST DYE ONLY, PT IS NOT ALLERGIC TO ORAL CONTRAST PER REPORT Corticosteroids (Verified Adverse Reaction, Severe, HEART MURMUR, 03/14/17) MRI PRECAUTION (Verified Adverse Reaction, Severe, SHRAPNEL IN C-SPINE per Dr. Smart 10/26/04, 03/14/17) Uncoded Allergies: FENTYNAL (Allergy, Severe, RASH AND BLISTERS, 12/27/16) PER PATIENT Reported Meds & Prescriptions Reported Meds & Active Scripts Active Sucralfate Liq (Sucralfate) 1 Gm/10 Ml Dolores 1 Gm PO ACHS 10 Days Metoprolol Tartrate 25 Mg Tab 12.5 Mg PO Q12HR Prevacid Solutab ODT (Lansoprazole) 30 Mg Tab 30 Mg PO BID Lipitor (Atorvastatin Calcium) 10 Mg Tab 10 Mg PO DAILY Flomax (Tamsulosin HCl) 0.4 Mg Cap 0.4 Mg PO BID Norvasc (Amlodipine Besylate) 5 Mg Tab 5 Mg PO DAILY Ventolin Hfa 18 GM Inh (Albuterol Sulfate) 90 Mcg/Act Aer 2 Puff INH Q6H PRN Zenpep (Pancrelipase) 40,000-136,000-218,000 Units Cap 1 Cap PO TIDPC Lortab (Hydrocodone-Acetaminophen) 10-325 Mg Tab 1 Tab PO Q6HR PRN do not take this medicine if you will drive a car or use a machine, only use it when resting at home Symbicort Inh (Budesonide/Formoterol Fumarate) 160-4.5 Mcg/Act Aero 1 Puff INH Q12HR Xanax (Alprazolam) 1 Mg Tab 1 Mg PO BID PRN Temazepam 30 Mg Cap 30 Mg PO HS PRN Reported Hydrochlorothiazide 25 Mg Tab 25 Mg PO DAILY Review of Systems Except as stated in HPI: all other systems reviewed are Neg Gastrointestinal: Positive: Other (STOOL DISCOLORATION VS GI BLEEDING) Physical Exam Narrative GENERAL: SKIN: Warm and dry. HEAD: Atraumatic. Normocephalic. EYES: Pupils equal and round. No scleral icterus. No injection or drainage. ENT: No nasal bleeding or discharge. Mucous membranes pink and moist. NECK: Trachea midline. No JVD. CARDIOVASCULAR: Regular rate and rhythm. RESPIRATORY: No accessory muscle use. Clear to auscultation. Breath sounds equal bilaterally. GASTROINTESTINAL: Abdomen soft, non-tender, nondistended. TRACE GUAIAC POSITIVE MUSCULOSKELETAL: Extremities without clubbing, cyanosis, or edema. No obvious deformities. NEUROLOGICAL: Awake and alert. No obvious cranial nerve deficits. Motor grossly within normal limits. Five out of 5 muscle strength in the arms and legs. Normal speech. PSYCHIATRIC: Appropriate mood and affect; insight and judgment normal. Data Data Last Documented VS Vital Signs Date Time Temp Pulse Resp B/P Pulse Ox O2 Delivery O2 Flow Rate FiO2 03/14/17 11:10 78 15 125/80 100 Room Air 03/14/17 09:00 98.2 Orders Vascular Access Team Consult/P PRN (03/14/17 09:38) Vascular Poc Ultrasound (03/14/17 ) Complete Blood Count With Diff (03/14/17 09:39) Comprehensive Metabolic Panel (03/14/17 09:39) Lipase (03/14/17 09:39) Prothrombin Time / Inr (Pt) (03/14/17 09:39) Act Partial Throm Time (Ptt) (03/14/17 09:39) Urinalysis - C+S If Indicated (03/14/17 09:39) Type And Screen (03/14/17 09:39) Ecg Monitoring (03/14/17 09:39) Iv Access Insert/Monitor (03/14/17 09:39) Oximetry (03/14/17 09:39) Labs Laboratory Tests Test 03/14/17 03/14/17 10:00 10:30 White Blood Count 5.2 TH/MM3 Red Blood Count 4.51 MIL/MM3 Hemoglobin 12.7 GM/DL Hematocrit 39.9 % Mean Corpuscular Volume 88.4 FL Mean Corpuscular Hemoglobin 28.2 PG Mean Corpuscular Hemoglobin 31.9 % Concent Red Cell Distribution Width 16.3 % Platelet Count 365 TH/MM3 Mean Platelet Volume 7.0 FL Neutrophils (%) (Auto) 66.1 % Lymphocytes (%) (Auto) 23.2 % Monocytes (%) (Auto) 7.5 % Eosinophils (%) (Auto) 2.5 % Basophils (%) (Auto) 0.7 % Neutrophils # (Auto) 3.5 TH/MM3 Lymphocytes # (Auto) 1.2 TH/MM3 Monocytes # (Auto) 0.4 TH/MM3 Eosinophils # (Auto) 0.1 TH/MM3 Basophils # (Auto) 0.0 TH/MM3 CBC Comment DIFF FINAL Differential Comment Prothrombin Time 10.9 SEC Prothromb Time International 1.0 RATIO Ratio Activated Partial 26.9 SEC Thromboplast Time Sodium Level 133 MEQ/L Potassium Level 4.7 MEQ/L Chloride Level 100 MEQ/L Carbon Dioxide Level 26.1 MEQ/L Anion Gap 7 MEQ/L Blood Urea Nitrogen 18 MG/DL Creatinine 0.86 MG/DL Estimat Glomerular Filtration 109 ML/MIN Rate Random Glucose 122 MG/DL Calcium Level 9.6 MG/DL Total Bilirubin 0.6 MG/DL Aspartate Amino Transf 22 U/L (AST/SGOT) Alanine Aminotransferase 32 U/L (ALT/SGPT) Alkaline Phosphatase 115 U/L Total Protein 8.8 GM/DL Albumin 4.0 GM/DL Lipase 83 U/L Blood Type B POSITIVE Antibody Screen NEGATIVE Urine Color YELLOW Urine Turbidity CLEAR Urine pH 6.5 Urine Specific [place] 1.023 Urine Protein TRACE mg/dL Urine Glucose (UA) NEG mg/dL Urine Ketones NEG mg/dL Urine Occult Blood NEG Urine Nitrite NEG Urine Bilirubin NEG Urine Urobilinogen 0.2 MG/DL Urine Leukocyte Esterase NEG Urine RBC 0-3 /hpf Urine WBC 0-2 /hpf Urine Squamous Epithelial > 8 /hpf Cells Urine Amorphous Sediment SMALL Urine Bacteria NONE /hpf Urine Mucus RARE /lpf Microscopic Urinalysis Comment CULT NOT INDICATED MDM Medical Decision Making Medical Screen Exam Complete: Yes Emergency Medical Condition: Yes Medical Record Reviewed: Yes Differential Diagnosis ANEMIA V ELECTROLYTE ABNL V HEMATOCHEZIA V GI BLEED Narrative Course PATIENT AFTER THOROUGH EVALUATION WAS NOT FOUND TO BE ANEMIC/DEHYDRATED/NO ELECTROLYTE ABNL. TRACE GUAIAC POSITIVE, BUT OTHERWISE HEMODYNAMICALLY STABLE. WHILE AWAITING CALL FROM DR WRIGHT PATIENT KEPT GETTING IMPATIENT THAT I WAS NOT GIVING HIM DILAUDID FOR HIS PAIN LIKE OTHER DOCTORS HemaPrompt Point of Care Internal Pos. & Neg. Controls: Passed Fecal Specimen Occult Blood: Positive Physician Communication Physician Communication FULLY DISCUSSED CASE WITH DR PRIETO WHO RECC PATIENT FOLLOW UP IN CLINIC, AND NO NEED TO RESCOPE AT THIS TIME. Diagnosis Primary Impression: TRACE GI BLEED HEMODYNAMICALLY STABLE Disposition: 07 AGAINST MEDICAL ADVICE Condition: Stable Anival Delacruz MD Mar 14, 2017 11:33
[2017-03-15] MEDS ORDERED: IPRA17I INH (16:21)
[2017-03-15] MEDS ORDERED: METO50TA PO (16:21)
[2017-03-15] MEDS ORDERED: METR-1 PO (20:14)
== END 2017-03-14 12:07 | disposition left against medical advice (07) ==
LOC: NEPE 08:56
DX: K92.2 Gastrointestinal hemorrhage, unspecified (principal); I10 Essential (primary) hypertension; Z53.21 Procedure and treatment not carried out due to patient leaving prior to being seen by health care provider
CPT/HCPCS: 80053; 81001; 83690; 85025; 85610; 85730; 86850; 86900; 86901; 99284

== ENCOUNTER 2017-03-15 13:00 | Emergency (ER) | payer MEDICAID ==
[~2017-03-15] VITALS: Ht 177.8 cm; Wt 66.5 kg
[~2017-03-15 13:00] MED LIST changes: -MILKSUS PO
[2017-03-15 13:02] VITALS: BP 138/72; PULSE 90; RESP 20; TEMP 97.4; O2SAT 99
[2017-03-15] MEDS ORDERED: IPRA17I INH (16:21)
[2017-03-15] MEDS ORDERED: METO50TA PO (16:21)
[2017-03-15] MEDS ORDERED: METR-1 PO (20:14)
== END 2017-03-15 17:20 | disposition left against medical advice (07) ==
LOC: NED 13:00
DX: R10.9 Unspecified abdominal pain (principal); Z53.21 Procedure and treatment not carried out due to patient leaving prior to being seen by health care provider
CPT/HCPCS: 99281

== ENCOUNTER 2017-03-15 15:38 | Emergency (ER) | payer MEDICAID ==
[~2017-03-15] VITALS: Ht 177.8 cm; Wt 67.0 kg
[2017-03-15 15:41] VITALS: BP 140/74; PULSE 103; RESP 16; TEMP 98.7; O2SAT 98
[2017-03-15 16:01] VITALS: BP 110/77; PULSE 91; RESP 18; O2SAT 97
[2017-03-15] MEDS ORDERED: SODIUM CHLOR 0.9% 1000 ML INJ 1,000 ML IV SCH (16:20)
[2017-03-15] MEDS ORDERED: METO50TA PO (16:21)
[2017-03-15] MEDS ORDERED: IPRA17I INH (16:21)
[2017-03-15] MEDS ORDERED: MORPHINE SULFATE 4 MG/ML INJ IV PUSH ONE (16:30)
[2017-03-15] MEDS ORDERED: SODIUM CHLORIDE 0.9% FLUSH 10 ML FLUSH IV FLUSH PRN (16:30)
[2017-03-15] MEDS ORDERED: ONDANSETRON HCL 4 MG/2 ML VIAL IVP ONE (16:30)
[2017-03-15 17:01] LABS: AUTOMATED NEUTROPHIL # 4.9 TH/MM3 (1.8-7.7); BASOPHIL # 0.2 TH/MM3 (0-0.2); BASOPHIL % 2.1 % (0.0-2.0); CHLORIDE 99 MEQ/L (98-107); EOSINOPHIL # 0.1 TH/MM3 (0-0.4); EOSINOPHIL % 1.1 % (0.0-4.0); HEMATOCRIT 40.6 % (39.0-51.0); HEMO FLAGS DIFF FINAL; LYMPH % 23.5 % (9.0-44.0); LYMPHOCYTE # 1.8 TH/MM3 (1.0-4.8); MEAN CELL VOLUME 86.4 FL (80.0-100.0); MEAN CORPUSCULAR HEMOGLOBIN 27.1 PG (27.0-34.0); MEAN CORPUSCULAR HGB CONC 31.4 % (32.0-36.0); MONO % 8.4 % (0.0-8.0); NEUT % 64.9 % (16.0-70.0); PLATELET COUNT 391 TH/MM3 (150-450); POTASSIUM 3.9 MEQ/L (3.5-5.1); RED CELL DISTRIBUTION WIDTH 15.8 % (11.6-17.2); SODIUM (NA) 132 MEQ/L (136-145); WHITE BLOOD COUNT 7.7 TH/MM3 (4.0-11.0)
[2017-03-15 17:01] LABS: BLOOD, URINE NEG (NEG); GLUCOSE,URINE NEG (NEG); KETONE, URINE TRACE mg/dL (NEG); NITRITE,URINE NEG (NEG); PH, URINE 5.5 (5.0-8.5)
[2017-03-15 17:04] LABS: ANION GAP 10 MEQ/L (5-15); APTT (PATIENT) 27.1 SEC (24.3-30.1); BICARBONATE 22.9 MEQ/L (21.0-32.0); PROTHROMBIN TIME - PATIENT 11.4 SEC (9.8-11.6)
[2017-03-15 17:05] LABS: BLOOD UREA NITROGEN 21 MG/DL (7-18)
[2017-03-15 17:07] LABS: ALT (GPT) 22 U/L (12-78); AST (GOT) 13 U/L (15-37); GLOMERULAR FILTRATION RATE 102 ML/MIN (>89)
[2017-03-15 17:09] LABS: TOTAL BILIRUBIN ADULT 0.6 MG/DL (0.2-1.0)
[2017-03-15 17:10] LABS: ALKALINE PHOSPHATASE 107 U/L (45-117)
[2017-03-15 17:11] LABS: SQUAMOUS EPITHELIAL CELL URINE 0-5 /hpf (0-5); URINE COLOR YELLOW (YELLW/STRAW)
[2017-03-15 17:12] LABS: COMMENT (UR) CULT NOT INDICATED; CULTURE IF INDICATED CULT NOT INDICATED
--- NOTE | 2017-03-15 18:21 | RADRPT ---
EXAM DATE/TIME: 03/15/2017 17:29 [facility] COMPARISON: CHEST PA & LAT, January 28, 2017, 21:04. INDICATIONS : Chest and abdomen pain. MEDICAL HISTORY : Hypertension. SURGICAL HISTORY : None. ENCOUNTER: Initial ACUITY: 1 day PAIN SCORE: 5/10 LOCATION: chest FINDINGS: PA and lateral views of the chest demonstrate the lungs to be symmetrically aerated without evidence of mass, infiltrate or effusion. The cardiomediastinal contours are unremarkable. Osseous structure s are intact. CONCLUSION: 1. No acute cardiopulmonary disease. Tay Brito MD on March 15, 2017 at 18:19 Board Certified Radiologist. This report was verified electronically.
--- NOTE | 2017-03-15 18:26 | RADRPT ---
EXAM DATE/TIME: 03/15/2017 17:13 [facility] COMPARISON: CT ABDOMEN & PELVIS W/O CONTRAST, January 03, 2017, 17:59. CT ABDOMEN & PELVIS W/O CONTRAST, February 19 17, 18:25. INDICATIONS : Black, bloody, and tarry stools. Abdominal pain. ORAL CONTRAST: No oral contrast ingested. RADIATION DOSE: 11.02 CTDIvol (mGy) MEDICAL HISTORY : Carcinoma, prostate. Hypertension. Gastroesophageal reflux disease. Gallstones. Pancreatitis. SURGICAL HISTORY : Cholecystectomy. Left hip replacement. ENCOUNTER: Initial ACUITY: 1 day PAIN SCALE: 9/10 LOCATION: Abdomen TECHNIQUE: Volumetric scanning of the abdomen and pelvis was performed. Using automated exposure control and ad justment of the mA and/or kV according to patient size, radiation dose was kept as low as reasonably achievable to obtain optimal diagnostic quality images. DICOM format image data is available electro nically for review and comparison. FINDINGS: There is a persistent moderate sized pericardial effusion. Evaluation of the solid organs of the abd omen is limited by the lack of intravenous contrast. The patient is status post cholecystectomy. Ca lcification is noted within the pancreatic head and uncinate process indicating chronic calcific panc reatitis. There is mild dilatation of the main pancreatic duct within the region of the head and pro ximal body. No acute obstructive uropathy is noted. There is mild fluid-filled dilatation of a loop of jejunum with mild wall thickening suggestive of jejunitis. Clinical correlation is recommended. T here is no evidence of colonic dilatation. A large urinary bladder diverticulum is noted extending l aterally on the left and is stable. Degenerative changes are noted throughout the lumbar spine. CONCLUSION: 1. Mild fluid-filled dilatation and wall thickening involving a loop of jejunum suggesting jejunitis. Clinical correlation is recommended. 2. Stable moderate sized pericardial effusion. 3. Large left lateral urinary bladder diverticulum. 4. Chronic calcific pancreatitis with persistent dilatation of the main pancreatic duct in the head a nd proximal body. 5. Degenerative changes throughout the lumbar spine. Kennedy Shahid MD on March 15, 2017 at 18:13 Board Certified Radiologist. This report was verified electronically.
[2017-03-15 19:00] VITALS: RESP 18
[2017-03-15] MEDS ORDERED: METR-1 PO (20:14)
--- NOTE | 2017-03-15 20:15 | PD ---
HPI Chief Complaint: GI Complaint Time Seen by Provider: 16:10 Travel History International Travel<30 days: No Contact w/Intl Traveler<30days: No Traveled to known affect area: No History of Present Illness HPI Patient is a 62 year old male who comes in complaining of abdominal pain and diarrhea. He has been here multiple times for the same thing. He was here yesterday complaining of black stools and was discharged home. He comes back saying he is still having pain, diarrhea and black stool. He had a colonoscopy done 2 weeks ago that showed AVMs, which were cauterized. He is not having fever or chills. He says he has not been eating because it makes his diarrhea worse. He says he feels like he needs some IV fluids. PFSH Past Medical History Hx Anticoagulant Therapy: Yes Anemia: Yes Arthritis: Yes Asthma: Yes Blood Disorders: No Anxiety: Yes Depression: No Heart Rhythm Problems: No Cancer: Yes Cardiac Catheterization: Yes Cardiovascular Problems: Yes High Cholesterol: No Chest Pain: Yes Congestive Heart Failure: Yes COPD: No Cerebrovascular Accident: Yes Coronary Artery Disease: Yes Diabetes: No Diminished Hearing: No Endocrine: No Gastrointestinal Disorders: Yes (GI Bleed) GERD: Yes Genitourinary: Yes (RETENTION FROM PROSTATE ENLARGEMENT) Headaches: No Hiatal Hernia: Yes Heparin Induced Thrombocytopen: No Hypertension: Yes 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") Implanted Vascular Access Dvce: Yes Musculoskeletal: No Neurologic: Yes (CVA, TIA) Psychiatric: Yes (Anxiety HX of Alcohol Abuse/Encephalopathy) Reproductive: No Respiratory: Yes (LUNG TRANSPLANT AND PLEURISY) Immunizations Current: Yes Myocardial Infarction: Yes Pancreatitis: Yes Pneumonia: Yes Radiation Therapy: Yes Sleep Apnea: Yes Thyroid Disease: No Ulcer: Yes Tetanus Vaccination: < 5 Years Influenza Vaccination: Yes PNEUMOCCOCAL Vaccine (Year): 1 Past Surgical History Abdominal Surgery: Yes Body Medical Devices: TITANIUM MIKE IN LEFT HIP, BULLET IN RIGHT SHOULDER Cardiac Surgery: Yes Cholecystectomy: Yes Coronary Artery Bypass Graft: No Joint Replacement: Yes (L hip, L rotator cuff) Pacemaker: No Thoracic Surgery: Yes (lung transplant) Other Surgery: Yes (pelvic surgery , lung surgery d/t viral pneumonia) Social History Alcohol Use: No Tobacco Use: Yes (2 CIGS DAILY) Substance Use: No Allergies-Medications (Allergen,Severity, Reaction): Coded Allergies: Cardura (Verified Allergy, Severe, SOB,CHEST PAIN, 03/15/17) Cipro (Verified Allergy, Severe, RASH, SWOLLEN FACE, 03/15/17) Codeine (Verified Allergy, Severe, sob, 03/15/17) Famotidine (Verified Allergy, Severe, MADE HIM SUICIDAL, 03/15/17) Imodium (Verified Allergy, Severe, rash, 03/15/17) BROKE OUT IN RASH, AND SWELLING AROUND NECK Nonsteroidal Anti-Inflammatory Agts (Verified Allergy, Severe, 03/15/17) Protonix (Verified Allergy, Severe, MADE HIM SUICIDAL, 03/15/17) Spironolactone (Verified Allergy, Severe, Bleeding, 03/15/17) Fentanyl (Verified Allergy, Intermediate, rash, 03/15/17) Morphine (Verified Allergy, Intermediate, Rash, 03/15/17) Contrast Media (Verified Adverse Reaction, Severe, BLISTERS AND EDEMA AT SITE, 03/15/17) IV CONTRAST DYE ONLY, PT IS NOT ALLERGIC TO ORAL CONTRAST PER REPORT Corticosteroids (Verified Adverse Reaction, Severe, HEART MURMUR, 03/15/17) MRI PRECAUTION (Verified Adverse Reaction, Severe, SHRAPNEL IN C-SPINE per Dr. Smart 10/26/04, 03/15/17) Uncoded Allergies: FENTYNAL (Allergy, Severe, RASH AND BLISTERS, 12/27/16) PER PATIENT Reported Meds & Prescriptions Reported Meds & Active Scripts Active Flagyl (Metronidazole) 500 Mg Tab 500 Mg PO TID 7 Days Sucralfate Liq (Sucralfate) 1 Gm/10 Ml Dolores 1 Gm PO ACHS 10 Days Prevacid Solutab ODT (Lansoprazole) 30 Mg Tab 30 Mg PO BID Lipitor (Atorvastatin Calcium) 10 Mg Tab 10 Mg PO DAILY Flomax (Tamsulosin HCl) 0.4 Mg Cap 0.4 Mg PO BID Norvasc (Amlodipine Besylate) 5 Mg Tab 5 Mg PO DAILY Ventolin Hfa 18 GM Inh (Albuterol Sulfate) 90 Mcg/Act Aer 2 Puff INH Q6H PRN Zenpep (Pancrelipase) 40,000-136,000-218,000 Units Cap 1 Cap PO TIDPC Lortab (Hydrocodone-Acetaminophen) 10-325 Mg Tab 1 Tab PO Q6HR PRN do not take this medicine if you will drive a car or use a machine, only use it when resting at home Xanax (Alprazolam) 1 Mg Tab 1 Mg PO BID PRN Temazepam 30 Mg Cap 30 Mg PO HS PRN Reported Metoprolol Tartrate 50 Mg Tab 50 Mg PO BID Atrovent HFA 12.9 GM Inh (Ipratropium Onyx) 17 Mcg/Act Aer 2 Puff INH TID Hydrochlorothiazide 25 Mg Tab 25 Mg PO DAILY Review of Systems Except as stated in HPI: all other systems reviewed are Neg General / Constitutional: No: Fever, Chills HENT: No: Headaches, Lightheadedness Cardiovascular: No: Chest Pain or Discomfort Respiratory: No: Shortness of Breath Gastrointestinal: Positive: Nausea, Diarrhea, Abdominal Pain Genitourinary: No: Dysuria Musculoskeletal: No: Weakness Skin: No Rash, No Change in Pigmentation Neurologic: No: Weakness, Dizziness Physical Exam Narrative GENERAL: Awake and alert, in no acute distress. SKIN: Focused skin assessment warm/dry. HEAD: Atraumatic. Normocephalic. EYES: Pupils equal and round. No scleral icterus. ENT: Mucous membranes pink and moist. NECK: Trachea midline. No JVD. CARDIOVASCULAR: Regular rate and rhythm. No murmur appreciated. RESPIRATORY: No accessory muscle use. Clear to auscultation. Breath sounds equal bilaterally. GASTROINTESTINAL: Abdomen soft, non-tender, nondistended. RECTAL: Exam performed in the presence of a female nurse. Brown stool, faintly occult positive for blood. MUSCULOSKELETAL: No obvious deformities. No clubbing. No cyanosis. No edema. NEUROLOGICAL: Awake and alert. No obvious cranial nerve deficits. Motor grossly within normal limits. Normal speech. PSYCHIATRIC: Appropriate mood and affect; insight and judgment normal. Data Data Last Documented VS Vital Signs Date Time Temp Pulse Resp B/P Pulse Ox O2 Delivery O2 Flow Rate FiO2 03/15/17 20:25 74 18 119/72 98 03/15/17 16:01 Room Air 03/15/17 15:41 98.7 Orders Complete Blood Count With Diff (03/15/17 16:20) Comprehensive Metabolic Panel (03/15/17 16:20) Lipase (03/15/17 16:20) Lactic Acid (03/15/17 16:20) Prothrombin Time / Inr (Pt) (03/15/17 16:20) Act Partial Throm Time (Ptt) (03/15/17 16:20) Urinalysis - C+S If Indicated (03/15/17 16:20) Iv Access Insert/Monitor (03/15/17 16:20) Ecg Monitoring (03/15/17 16:20) Oximetry (03/15/17 16:20) Morphine Inj (Morphine Inj) (03/15/17 16:30) Ondansetron Inj (Zofran Inj) (03/15/17 16:30) Sodium Chlor 0.9% 1000 Ml Inj (Ns 1000 M (03/15/17 16:20) Sodium Chloride 0.9% Flush (Ns Flush) (03/15/17 16:30) C Diff Toxin Pcr (03/15/17 16:20) Ct Abd/Pel W/O Iv Contrast (03/15/17 ) Chest, Pa & Lat (03/15/17 ) Labs Laboratory Tests Test 03/15/17 03/15/17 03/15/17 16:30 16:50 18:06 White Blood Count 7.7 TH/MM3 Red Blood Count 4.70 MIL/MM3 Hemoglobin 12.7 GM/DL Hematocrit 40.6 % Mean Corpuscular Volume 86.4 FL Mean Corpuscular Hemoglobin 27.1 PG Mean Corpuscular Hemoglobin 31.4 % Concent Red Cell Distribution Width 15.8 % Platelet Count 391 TH/MM3 Mean Platelet Volume 7.6 FL Neutrophils (%) (Auto) 64.9 % Lymphocytes (%) (Auto) 23.5 % Monocytes (%) (Auto) 8.4 % Eosinophils (%) (Auto) 1.1 % Basophils (%) (Auto) 2.1 % Neutrophils # (Auto) 4.9 TH/MM3 Lymphocytes # (Auto) 1.8 TH/MM3 Monocytes # (Auto) 0.6 TH/MM3 Eosinophils # (Auto) 0.1 TH/MM3 Basophils # (Auto) 0.2 TH/MM3 CBC Comment DIFF FINAL Differential Comment Prothrombin Time 11.4 SEC Prothromb Time International 1.0 RATIO Ratio Activated Partial 27.1 SEC Thromboplast Time Sodium Level 132 MEQ/L Potassium Level 3.9 MEQ/L Chloride Level 99 MEQ/L Carbon Dioxide Level 22.9 MEQ/L Anion Gap 10 MEQ/L Blood Urea Nitrogen 21 MG/DL Creatinine 0.91 MG/DL Estimat Glomerular Filtration 102 ML/MIN Rate Random Glucose 112 MG/DL Calcium Level 9.4 MG/DL Total Bilirubin 0.6 MG/DL Aspartate Amino Transf 13 U/L (AST/SGOT) Alanine Aminotransferase 22 U/L (ALT/SGPT) Alkaline Phosphatase 107 U/L Total Protein 8.5 GM/DL Albumin 3.9 GM/DL Lipase 391 U/L Urine Color YELLOW Urine Turbidity CLEAR Urine pH 5.5 Urine Specific [place] 1.016 Urine Protein NEG mg/dL Urine Glucose (UA) NEG mg/dL Urine Ketones TRACE mg/dL Urine Occult Blood NEG Urine Nitrite NEG Urine Bilirubin NEG Urine Leukocyte Esterase NEG Urine Squamous Epithelial 0-5 /hpf Cells Microscopic Urinalysis Comment CULT NOT INDICATED Lactic Acid Level 1.1 mmol/L MDM Medical Decision Making Medical Screen Exam Complete: Yes Emergency Medical Condition: Yes Medical Record Reviewed: Yes Differential Diagnosis Colitis versus diverticulitis versus diverticulosis versus drug-seeking Narrative Course Patient is a 61-year-old male comes in complaining of abdominal pain and diarrhea. He has been here multiple times for this complaint, including yesterday. IV established, labs sent. Labs show hemoglobin of 12.7, which is unchanged from yesterday. During his 5 hour stay, he no longer had any diarrhea and was unable to provide a sample for testing. I believe it is unlikely that he has C. Diff as he has not recently been on antibiotics, he had no diarrhea while in the ED, and his labs are within normal limits. CT abdomen and pelvis performed shows jejunitis. Patient will be discharged with Flagyl. Clinically he is not anemic, has no signs of symptomatic anemia. He has known causes for the blood in his stool. He has a [employer] consultant. He is advised to follow-up with his [employer] [facility] consultant. He is advised follow- up with his primary doctor. Advised to return to the emergency department as needed for any worsening symptoms. HemaPrompt Point of Care Internal Pos. & Neg. Controls: Passed Fecal Specimen Occult Blood: Positive Diagnosis Primary Impression: Jejunitis Patient Instructions: Enteritis (ED), General Instructions Additional Instructions: Drink plenty of fluids. Take all of your antibiotic. Do not take alcohol while taking the antibiotic. Follow-up with your [employer] [facility] consultant. Return to the emergency department as needed for any worsening symptoms. Scripts Metronidazole (Flagyl)500 Mg Skt624 Mg PO TID 7 Days Ref 0 Prov:Elana Perla MD 03/15/17 Disposition: 01 DISCHARGE HOME Condition: Stable Elana Perla MD Mar 15, 2017 20:15
[2017-03-15 20:25] VITALS: BP 119/72
== END 2017-03-15 20:29 | disposition home or self-care (01) ==
LOC: PHED 15:38
DX: K52.9 Noninfective gastroenteritis and colitis, unspecified (principal)
CPT/HCPCS: 71020; 74176; 80053; 81001; 83605; 83690; 85025; 85610; 85730; 96361; 96374; 96375; 99285; J2270; J2405; J7030

== ENCOUNTER 2017-03-25 02:57 | Emergency (ER) | payer MEDICAID ==
[~2017-03-25] VITALS: Ht 177.8 cm; Wt 71.0 kg
[~2017-03-25 02:57] MED LIST changes: +IPRA17I INH; -METO25TA3 PO; +METO50TA PO; +METR-1 PO; -SYMB160A INH
[2017-03-25 02:59] VITALS: BP 137/79; PULSE 81; RESP 12; TEMP 97.5; O2SAT 98
[2017-03-25] MEDS ORDERED: PROPARACAINE HCL 0.5% OPHT SOLN 15 ML BTL RIGHT EYE ONE (03:15)
[2017-03-25] MEDS ORDERED: POLY10O RIGHT EYE (03:28)
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
== END 2017-03-25 03:46 | disposition home or self-care (01) ==
LOC: NEPD 02:57
DX: S05.01XA Injury of conjunctiva and corneal abrasion without foreign body, right eye, initial encounter (principal); Y92.009 Unspecified place in unspecified non-institutional (private) residence as the place of occurrence of the external cause; J45.909 Unspecified asthma, uncomplicated; K21.9 Gastro-esophageal reflux disease without esophagitis; M19.90 Unspecified osteoarthritis, unspecified site; Z86.73 Personal history of transient ischemic attack (TIA), and cerebral infarction without residual deficits; Z94.2 Lung transplant status
CPT/HCPCS: 99283

== ENCOUNTER 2017-05-30 14:26 | Emergency (ER) | payer MEDICAID ==
[~2017-05-30] VITALS: Ht 177.8 cm; Wt 75.0 kg
[~2017-05-30 14:26] MED LIST changes: +POLY10O RIGHT EYE
[2017-05-30 14:34] VITALS: BP 139/77; PULSE 63; RESP 18; TEMP 98.4; O2SAT 98
[2017-05-30] MEDS ORDERED: AMLO5TAB2 PO (15:12)
[2017-05-30] MEDS ORDERED: PROM12.54 PO (15:12)
[2017-05-30] MEDS ORDERED: SODIUM CHLORIDE 0.9% FLUSH 10 ML FLUSH IVF PRN (15:15)
[2017-05-30 15:38] LABS: AUTOMATED NEUTROPHIL # 3.3 TH/MM3 (1.8-7.7); BASOPHIL # 0.2 TH/MM3 (0-0.2); BASOPHIL % 3.2 % (0.0-2.0); EOSINOPHIL # 0.3 TH/MM3 (0-0.4); EOSINOPHIL % 5.1 % (0.0-4.0); HEMATOCRIT 39.6 % (39.0-51.0); HEMO FLAGS DIFF FINAL; LYMPH % 24.8 % (9.0-44.0); LYMPHOCYTE # 1.4 TH/MM3 (1.0-4.8); MEAN CELL VOLUME 87.2 FL (80.0-100.0); MEAN CORPUSCULAR HEMOGLOBIN 28.3 PG (27.0-34.0); MEAN CORPUSCULAR HGB CONC 32.4 % (32.0-36.0); MONO % 7.5 % (0.0-8.0); NEUT % 59.4 % (16.0-70.0); PLATELET COUNT 317 TH/MM3 (150-450); RED BLOOD COUNT 4.53 MIL/MM3 (4.50-5.90); RED CELL DISTRIBUTION WIDTH 15.5 % (11.6-17.2); WHITE BLOOD COUNT 5.6 TH/MM3 (4.0-11.0)
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
[2017-05-30 15:47] LABS: CHLORIDE 105 MEQ/L (98-107); SODIUM (NA) 136 MEQ/L (136-145)
[2017-05-30 15:50] LABS: ANION GAP 4 MEQ/L (5-15); BICARBONATE 26.9 MEQ/L (21.0-32.0)
--- NOTE | 2017-05-30 15:50 | RADRPT ---
EXAM DATE/TIME: 05/30/2017 15:34 CORRECTION Corrected on: May 30, 2017; [facility] COMPARISON: CT ABDOMEN & PELVIS W/O CONTRAST, March 15, 2017, 17:13. INDICATIONS : Non specific abdominal pain. Frequent falls with difficulty urinating. ORAL CONTRAST: No oral contrast ingested. RADIATION DOSE: 10.57 CTDIvol (mGy) MEDICAL HISTORY : Cerebrovascular disease. Hypertension. Carcinoma, prostate.Pleurisy. SURGICAL HISTORY : Lung transplant. ENCOUNTER: Initial ACUITY: 3 days PAIN SCALE: 5/10 LOCATION: abdomen TECHNIQUE: Volumetric scanning of the abdomen and pelvis was performed. Using automated exposure control and ad justment of the mA and/or kV according to patient size, radiation dose was kept as low as reasonably achievable to obtain optimal diagnostic quality images. DICOM format image data is available electro nically for review and comparison. FINDINGS: LOWER LUNGS: The visualized lower lungs are clear. Small pericardial effusion remains evident. LIVER: Homogeneous density without lesion. There is no dilation of the biliary tree. Gallbladder has been r emoved. SPLEEN: Normal size without lesion. PANCREAS: Calcific deposits are again identified in the pancreatic head. There is mild dilatation of main pancr eatic duct which has remained stable. KIDNEYS: Normal in size and shape. There is no mass, stone, or hydronephrosis. ADRENAL GLANDS: Within normal limits. VASCULAR: There is no aortic aneurysm. BOWEL/MESENTERY: The stomach, small bowel, and colon demonstrate no acute abnormality. There is no free intraperitone al air or fluid. ABDOMINAL WALL: Within normal limits. RETROPERITONEUM: There is no lymphadenopathy. BLADDER: No wall thickening or mass. Bladder diverticulum is again identified along the left bladder wall. REPRODUCTIVE: Unremarkable INGUINAL: There is no lymphadenopathy or hernia. MUSCULOSKELETAL: Left hip replacement is identified. CONCLUSION: 1. Stable exam without evidence of acute process. 2. Pancreatic calcification characteristic of chronic pancreatitis; no acute component noted. 3. Status post cholecystectomy 4. Stable left-sided bladder diverticulum. 5. Stable small pericardial effusion. Arsalan Meza MD on May 30, 2017 at 15:44 Board Certified Radiologist. This report was verified electronically. Arsalan Meza MD on May 30, 2017 at 16:02 Board Certified Radiologist. This report was verified electronically.
[2017-05-30 15:51] LABS: BLOOD UREA NITROGEN 13 MG/DL (7-18); MAGNESIUM 2.4 MG/DL (1.5-2.5)
[2017-05-30 15:53] LABS: ALT (GPT) 19 U/L (12-78); AST (GOT) 16 U/L (15-37)
[2017-05-30 15:54] LABS: GLOMERULAR FILTRATION RATE 127 ML/MIN (>89)
[2017-05-30 15:55] LABS: TOTAL BILIRUBIN ADULT 0.4 MG/DL (0.2-1.0)
[2017-05-30 15:56] LABS: ALKALINE PHOSPHATASE 105 U/L (45-117)
[2017-05-30 16:29] VITALS: BP_SYST 131; BP_SYST 139; BP_SYST 147; BP_DIAS 81; BP_DIAS 82; BP_DIAS 83; RESP 14; RESP 16
--- NOTE | 2017-05-30 17:01 | RADRPT ---
EXAM DATE/TIME: 05/30/2017 16:28 [facility] COMPARISON: No previous studies available for comparison. INDICATIONS : Left shoulder pain after falling several times this week. MEDICAL HISTORY : Cerebrovascular disease. Hypertension. Carcinoma, prostate. Pleurisy. SURGICAL HISTORY : Lung transplant. ENCOUNTER: Initial ACUITY: 1 week PAIN SCORE: 6/10 LOCATION: Left shoulder. FINDINGS: Multiple view examination of the left shoulder demonstrates no evidence of fracture or dislocation. The glenohumeral and acromioclavicular joints are maintained. There is normal range of motion betwee n internal and external rotation. Bony mineralization is normal. CONCLUSION: 1. Negative examination of the shoulder. Nazario Gallagher MD on May 30, 2017 at 16:51 Board Certified Radiologist. This report was verified electronically.
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
[2017-05-30 18:04] LABS: BLOOD, URINE NEG (NEG); GLUCOSE,URINE NEG (NEG); KETONE, URINE NEG (NEG); NITRITE,URINE NEG (NEG)
[2017-05-30 18:12] LABS: MUCUS URINE FEW /lpf (OCC); URINE COLOR AMBER (YELLW/STRAW)
[2017-05-30 18:13] LABS: COMMENT (UR) CULT NOT INDICATED; CULTURE IF INDICATED CULT NOT INDICATED; SQUAMOUS EPITHELIAL CELL URINE 0-5 /hpf (0-5); WBC, URINE 0-2 /hpf (0-5)
[2017-05-30 18:34] VITALS: BP 119/70
--- NOTE | 2017-05-31 23:57 | EKG ---
Date Performed: 05/30/2017 Time Performed: 15:19:22 PTAGE: 62 years EKG: SINUS BRADYCARDIA BORDERLINE ECG PREVIOUS TRACING : 02/27/2017 03.27 Compared to prior tracing no significant change DOCTOR: Chirag Puga Interpretating Date/Time 05/31/2017 23:57:16
== END 2017-05-30 18:46 | disposition home or self-care (01) ==
LOC: PHED 14:26
DX: M25.512 Pain in left shoulder (principal); Z91.81 History of falling; J45.909 Unspecified asthma, uncomplicated; F41.9 Anxiety disorder, unspecified; K21.9 Gastro-esophageal reflux disease without esophagitis; I11.0 Hypertensive heart disease with heart failure; I50.9 Heart failure, unspecified; Z86.73 Personal history of transient ischemic attack (TIA), and cerebral infarction without residual deficits; I25.10 Atherosclerotic heart disease of native coronary artery without angina pectoris; Z79.01 Long term (current) use of anticoagulants; I25.2 Old myocardial infarction; Z79.899 Other long term (current) drug therapy
CPT/HCPCS: 71020; 73030; 74176; 80053; 81001; 83735; 84484; 85025; 93005

== ENCOUNTER 2017-07-23 22:27 | Emergency (ER) | payer MEDICAID ==
[~2017-07-23] VITALS: Ht 180.3 cm; Wt 75.0 kg
[~2017-07-23 22:27] MED LIST changes: -AMLO5 PO; +AMLO5TAB2 PO; -LIPI10TA PO; -METR-1 PO; -PANC1CAP9 PO; -POLY10O RIGHT EYE; -PREV30TA3 PO; +PROM12.54 PO; -SUCR1S PO; -TEMA30CA PO
[2017-07-23 22:35] VITALS: BP 137/72; PULSE 101; RESP 16; TEMP 98.3; O2SAT 96
[2017-07-23] MEDS ORDERED: HYDR-3583 PO (23:00)
[2017-07-23] MEDS ORDERED: SODIUM CHLOR 0.9% 1000 ML INJ 1,000 ML IV SCH (23:07)
[2017-07-23] MEDS ORDERED: DIATRIZOATE MEGLUM/DIATRIZOATE SOD 9 ML CUP ONE (23:10)
--- NOTE | 2017-07-23 23:12 | PD ---
HPI Chief Complaint: Abdominal Pain Time Seen by Provider: 23:03 Travel History International Travel<30 days: No Contact w/Intl Traveler<30days: No Traveled to known affect area: No History of Present Illness HPI 62-year-old male with history of lung cancer status post lobectomy, hypertension , on Lortab for chronic pain, here for evaluation of constipation and abdominal pain. Patient reports he has not had a bowel movement for 3 days. He is describing diffuse sharp abdominal pain which is moderate, constant, worse with movements. He feels nauseous but has not vomited. No fevers or chills. PFSH Past Medical History Hx Anticoagulant Therapy: Yes Anemia: Yes Arthritis: Yes Asthma: Yes Blood Disorders: No Anxiety: Yes Depression: No Heart Rhythm Problems: No Cancer: Yes (PROSTATE) Cardiac Catheterization: Yes Cardiovascular Problems: Yes High Cholesterol: No Chest Pain: Yes Congestive Heart Failure: Yes COPD: No Cerebrovascular Accident: Yes (PRIMO&TIA) Coronary Artery Disease: Yes Diabetes: No Diminished Hearing: No Endocrine: No Gastrointestinal Disorders: Yes (GI Bleed) GERD: Yes Genitourinary: Yes (RETENTION FROM PROSTATE ENLARGEMENT) Headaches: No Hiatal Hernia: Yes Heparin Induced Thrombocytopen: No Hypertension: Yes 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") Implanted Vascular Access Dvce: Yes Musculoskeletal: No Neurologic: Yes Psychiatric: Yes (HX of Alcohol Abuse/Encephalopathy) Reproductive: No Respiratory: Yes (LUNG TRANSPLANT AND PLEURISY) Immunizations Current: Yes Myocardial Infarction: Yes Pancreatitis: Yes Pneumonia: Yes Radiation Therapy: Yes Sleep Apnea: Yes Thyroid Disease: No Ulcer: Yes PNEUMOCCOCAL Vaccine (Year): 1 Past Surgical History Abdominal Surgery: Yes (COLON) Body Medical Devices: TITANIUM MIKE IN LEFT HIP, BULLET IN RIGHT SHOULDER Cardiac Surgery: Yes Cholecystectomy: Yes Coronary Artery Bypass Graft: No Joint Replacement: Yes (L hip, L rotator cuff) Pacemaker: No Thoracic Surgery: Yes (lung transplant) Other Surgery: Yes (pelvic surgery) Social History Alcohol Use: No Tobacco Use: Yes (2 CIGS DAILY) Substance Use: No Allergies-Medications (Allergen,Severity, Reaction): Coded Allergies: ciprofloxacin (Unverified Allergy, Severe, RASH, SWOLLEN FACE, 07/23/17) codeine (Unverified Allergy, Severe, sob, 07/23/17) diclofenac (Unverified Allergy, Severe, 07/23/17) doxazosin (Unverified Allergy, Severe, SOB,CHEST PAIN, 07/23/17) etodolac (Unverified Allergy, Severe, 07/23/17) famotidine (Unverified Allergy, Severe, MADE HIM SUICIDAL, 07/23/17) flurbiprofen (Unverified Allergy, Severe, 07/23/17) ibuprofen (Unverified Allergy, Severe, 07/23/17) indomethacin (Unverified Allergy, Severe, 07/23/17) ketoprofen (Unverified Allergy, Severe, 07/23/17) ketorolac (Unverified Allergy, Severe, 07/23/17) loperamide (Unverified Allergy, Severe, rash, 07/23/17) BROKE OUT IN RASH, AND SWELLING AROUND NECK naproxen (Unverified Allergy, Severe, 07/23/17) oxaprozin (Unverified Allergy, Severe, 07/23/17) pantoprazole (Unverified Allergy, Severe, MADE HIM SUICIDAL, 07/23/17) spironolactone (Unverified Allergy, Severe, Bleeding, 07/23/17) fentanyl (Unverified Allergy, Intermediate, rash, 07/23/17) morphine (Unverified Allergy, Intermediate, Rash, 07/23/17) MRI PRECAUTION (Verified Adverse Reaction, Severe, SHRAPNEL IN C-SPINE per Dr. Smart 10/26/04, 07/23/17) amcinonide (Unverified Adverse Reaction, Severe, HEART MURMUR, 07/23/17) beclomethasone (Unverified Adverse Reaction, Severe, HEART MURMUR, 07/23/17 ) betamethasone (Unverified Adverse Reaction, Severe, HEART MURMUR, 07/23/17) desoximetasone (Unverified Adverse Reaction, Severe, HEART MURMUR, 07/23/17 ) dexamethasone (Unverified Adverse Reaction, Severe, HEART MURMUR, 07/23/17) diatrizoate meglumine (Unverified Adverse Reaction, Severe, BLISTERS AND EDEMA AT SITE, 07/23/17) IV CONTRAST DYE ONLY, PT IS NOT ALLERGIC TO ORAL CONTRAST PER REPORT fludrocortisone (Unverified Adverse Reaction, Severe, HEART MURMUR, ) flunisolide (Unverified Adverse Reaction, Severe, HEART MURMUR, 07/23/17) fluocinolone acetonide (Unverified Adverse Reaction, Severe, HEART MURMUR , 07/23/17) fluocinonide (Unverified Adverse Reaction, Severe, HEART MURMUR, 07/23/17) fluorometholone (Unverified Adverse Reaction, Severe, HEART MURMUR, ) flurandrenolide (Unverified Adverse Reaction, Severe, HEART MURMUR, ) fluticasone (Unverified Adverse Reaction, Severe, HEART MURMUR, 07/23/17) fluticasone furoate (Unverified Adverse Reaction, Severe, HEART MURMUR, ) gadobenic acid (Unverified Adverse Reaction, Severe, BLISTERS AND EDEMA AT SITE, 07/23/17) IV CONTRAST DYE ONLY, PT IS NOT ALLERGIC TO ORAL CONTRAST PER REPORT gadodiamide (Unverified Adverse Reaction, Severe, BLISTERS AND EDEMA AT SITE, 07/23/17) IV CONTRAST DYE ONLY, PT IS NOT ALLERGIC TO ORAL CONTRAST PER REPORT gadoteridol (Unverified Adverse Reaction, Severe, BLISTERS AND EDEMA AT SITE, 07/23/17) IV CONTRAST DYE ONLY, PT IS NOT ALLERGIC TO ORAL CONTRAST PER REPORT hydrocortisone (Unverified Adverse Reaction, Severe, HEART MURMUR, 07/23/17 ) iodixanol (Unverified Adverse Reaction, Severe, BLISTERS AND EDEMA AT SITE , 07/23/17) IV CONTRAST DYE ONLY, PT IS NOT ALLERGIC TO ORAL CONTRAST PER REPORT iohexol (Unverified Adverse Reaction, Severe, BLISTERS AND EDEMA AT SITE, 07/23/17) IV CONTRAST DYE ONLY, PT IS NOT ALLERGIC TO ORAL CONTRAST PER REPORT methylprednisolone (Unverified Adverse Reaction, Severe, HEART MURMUR, 07/23/17) mometasone furoate (Unverified Adverse Reaction, Severe, HEART MURMUR, 07/23/17) prednisolone (Unverified Adverse Reaction, Severe, HEART MURMUR, 07/23/17) prednisone (Unverified Adverse Reaction, Severe, HEART MURMUR, 07/23/17) triamcinolone (Unverified Adverse Reaction, Severe, HEART MURMUR, 07/23/17) Uncoded Allergies: FENTYNAL (Allergy, Severe, RASH AND BLISTERS, 12/27/16) PER PATIENT Reported Meds & Prescriptions Reported Meds & Active Scripts Active Flomax (Tamsulosin HCl) 0.4 Mg Cap 0.4 Mg PO BID Ventolin Hfa 18 GM Inh (Albuterol Sulfate) 90 Mcg/Act Aer 2 Puff INH Q6H PRN Xanax (Alprazolam) 1 Mg Tab 1 Mg PO BID PRN Reported Hydrocodone-Acetaminophen 10-325 mg Tab 1 Tab PO Q6H PRN Promethazine (Promethazine HCl) 12.5 Mg Tab 12.5 Mg PO Q6H PRN Amlodipine (Amlodipine Besylate) 5 Mg Tab 5 Mg PO BID Metoprolol Tartrate 50 Mg Tab 50 Mg PO BID Atrovent HFA 12.9 GM Inh (Ipratropium [place]) 17 Mcg/Act Aer 2 Puff INH TID Hydrochlorothiazide 25 Mg Tab 25 Mg PO DAILY Review of Systems Except as stated in HPI: all other systems reviewed are Neg Physical Exam Narrative GENERAL: Well-developed, well-nourished, no apparent distress. SKIN: Focused skin assessment warm/dry. No rash. HEAD: Atraumatic. Normocephalic. EYES: Pupils equal and round. No scleral icterus. No injection or drainage. ENT: Mucous membranes pink and moist. NECK: Trachea midline. No JVD. CARDIOVASCULAR: Regular rate and rhythm. No murmur appreciated. RESPIRATORY: No accessory muscle use. Clear to auscultation. Breath sounds equal bilaterally. GASTROINTESTINAL: Abdomen soft, non-tender, nondistended. Normal bowel sounds. MUSCULOSKELETAL: No obvious deformities. No clubbing. No cyanosis. No edema. NEUROLOGICAL: Awake and alert. No obvious cranial nerve deficits. Motor grossly within normal limits. Normal speech. PSYCHIATRIC: Appropriate mood and affect; insight and judgment normal. Data Data Last Documented VS Vital Signs Date Time Temp Pulse Resp B/P (MAP) Pulse Ox O2 Delivery O2 Flow Rate FiO2 07/24/17 00:20 16 98 Room Air 07/23/17 22:35 98.3 101 Orders Orders Complete Blood Count With Diff (07/23/17 23:07) Comprehensive Metabolic Panel (07/23/17 23:07) Prothrombin Time / Inr (Pt) (07/23/17 23:07) Act Partial Throm Time (Ptt) (07/23/17 23:07) Urinalysis - C+S If Indicated (07/23/17 23:07) Iv Access Insert/Monitor (07/23/17 23:07) Ecg Monitoring (07/23/17 23:07) Oximetry (07/23/17 23:07) Sodium Chlor 0.9% 1000 Ml Inj (Ns 1000 M (07/23/17 23:07) Sodium Chloride 0.9% Flush (Ns Flush) (07/23/17 23:15) Lactulose Liq (Lactulose Liq) (07/23/17 23:15) Diatrizoate Liq ( Gastroview Liq) (07/23/17 23:10) Ct Abd/Pel W/O Iv Contrast (07/23/17 23:07) Oral Contrast - Adult (07/23/17 23:32) Acetamin-Hydrocod 325-5 Mg ([place] 5-325 (07/24/17 01:30) Fleets Enema (Adult) (Fleets Enema (Adul (07/24/17 01:45) Ondansetron Inj (Zofran Inj) (07/24/17 03:00) Peg (High)/E-Lyte Liq (Colyte Liq) (07/24/17 03:00) Lipase (07/24/17 02:49) Lidocaine 2% Jelly (Xylocaine 2% Jelly) (07/24/17 03:45) Urinary Catheter Insert/Apply (07/24/17 03:45) Bag, Leg 32oz Sterile Large Ea (07/24/17 04:23) Labs Laboratory Tests Test 07/24/17 00:17 07/24/17 04:12 White Blood Count 10.0 TH/MM3 Red Blood Count 5.08 MIL/MM3 Hemoglobin 15.2 GM/DL Hematocrit 45.4 % Mean Corpuscular Volume 89.4 FL Mean Corpuscular Hemoglobin 30.0 PG Mean Corpuscular Hemoglobin Concent 33.5 % Red Cell Distribution Width 15.0 % Platelet Count 299 TH/MM3 Mean Platelet Volume 7.5 FL Neutrophils (%) (Auto) 73.8 % Lymphocytes (%) (Auto) 14.5 % Monocytes (%) (Auto) 6.7 % Eosinophils (%) (Auto) 3.9 % Basophils (%) (Auto) 1.1 % Neutrophils # (Auto) 7.4 TH/MM3 Lymphocytes # (Auto) 1.5 TH/MM3 Monocytes # (Auto) 0.7 TH/MM3 Eosinophils # (Auto) 0.4 TH/MM3 Basophils # (Auto) 0.1 TH/MM3 CBC Comment DIFF FINAL Differential Comment Prothrombin Time 10.0 SEC Prothromb Time International Ratio 1.0 RATIO Activated Partial Thromboplast Time 25.9 SEC Blood Urea Nitrogen 18 MG/DL Creatinine 1.11 MG/DL Random Glucose 113 MG/DL Total Protein 9.1 GM/DL Albumin 4.2 GM/DL Calcium Level 9.6 MG/DL Alkaline Phosphatase 118 U/L Aspartate Amino Transf (AST/SGOT) 67 U/L Alanine Aminotransferase (ALT/SGPT) 50 U/L Total Bilirubin 0.5 MG/DL Sodium Level 142 MEQ/L Potassium Level 4.0 MEQ/L Chloride Level 105 MEQ/L Carbon Dioxide Level 31.3 MEQ/L Anion Gap 6 MEQ/L Estimat Glomerular Filtration Rate 81 ML/MIN Lipase 108 U/L Urine Color YELLOW Urine Turbidity CLEAR Urine pH 8.0 Urine Specific [place] 1.031 Urine Protein 30 mg/dL Urine Glucose (UA) NEG mg/dL Urine Ketones NEG mg/dL Urine Occult Blood NEG Urine Nitrite NEG Urine Bilirubin NEG Urine Urobilinogen 2.0 MG/DL Urine Leukocyte Esterase NEG Urine RBC 1 /hpf Urine WBC 1 /hpf Urine Mucus FEW /lpf Microscopic Urinalysis Comment CULT NOT INDICATED MDM Medical Decision Making Medical Screen Exam Complete: Yes Emergency Medical Condition: Yes Medical Record Reviewed: Yes Differential Diagnosis Constipation, bowel obstruction, pancreatitis, gastritis, peptic ulcer disease, colitis Narrative Course Vital signs reviewed. CBC is unremarkable. CMP is unremarkable. Lipase is 108. UA is not suggestive of UTI. CT abdomen pelvis: CONCLUSION: 1. Mildly nonspecific nonobstructive bowel gas pattern which may represent a mild ileus or gastroenteritis. Stable appearance of the pancreas with calcifications again noted in the head and dilatation of the pancreatic duct. There is no no inflammatory change. 2. Status post cholecystectomy. 3. Stable left-sided bladder diverticulum. 4. Pericardial effusion again noted. Patient and the patient's were made aware of all findings. He was given lactulose and has not had a bowel movement. Rectal exam was performed and shows no masses, no fissures, no hemorrhoids. There is a moderate amount of stool in the rectal vault which was digitally disimpacted by me. Patient was then given a fleets enema. He had a very tiny bowel movement, however complains that he still feels as though he needs to have a bowel movement. He will be given GoLYTELY. 3:45 AM: The patient has had a large bowel movement. He feels somewhat improved , however tells me he is unable to urinate. He did not tell me this before. He does have history of prostate cancer. I review the images of the CT scan and it shows that his bladder is distended. His creatinine is 1.11. Vogt catheter will be placed. Vogt catheter placed with 500 cc of urine output. The patient feels significantly improved. He has also had several bowel movements since receiving GoLYTELY. She'll be discharged home with Vogt in place and a leg bag. He was advised to follow-up with his primary care physician this week. He will also be given the name of the urologist [employer] consultant with whom to follow-up with this week. He apparently has had issues with urinary retention before and has had Vogt catheters placed in the past. He was informed on when to return to the emergency department. The patient's seems to have significant medical knowledge and thoroughly understands how to take care of a Vogt. Both the patient and the patient's verbalize understanding and agreement with plan. Diagnosis Primary Impression: Constipation Qualified Codes: K59.00 - Constipation, unspecified Additional Impressions: Urinary retention Abdominal pain Qualified Codes: R10.84 - Generalized abdominal pain Referrals: Ashok Campbell MD 3 days Urologist Primary Care Physician 3 days Additional Instructions: Follow-up with your primary care physician this week. Follow-up with urologist Dr. Campbell or a urologist of your choice this week. Return to the emergency department for worsening symptoms or any other concerns. Disposition: 01 DISCHARGE HOME Condition: Stable Avel Bain MD Jul 23, 2017 23:12
[2017-07-23] MEDS ORDERED: LACTULOSE SYRUP 20 GM/30 ML CUP PO ONE (23:15)
[2017-07-23] MEDS ORDERED: SODIUM CHLORIDE 0.9% FLUSH 10 ML FLUSH IV FLUSH PRN (23:15)
[2017-07-24 00:20] VITALS: RESP 16; O2SAT 98
[2017-07-24 00:31] LABS: AUTOMATED NEUTROPHIL # 7.4 TH/MM3 (1.8-7.7); BASOPHIL # 0.1 TH/MM3 (0-0.2); BASOPHIL % 1.1 % (0.0-2.0); EOSINOPHIL # 0.4 TH/MM3 (0-0.4); EOSINOPHIL % 3.9 % (0.0-4.0); HEMATOCRIT 45.4 % (39.0-51.0); HEMO FLAGS DIFF FINAL; LYMPH % 14.5 % (9.0-44.0); LYMPHOCYTE # 1.5 TH/MM3 (1.0-4.8); MEAN CELL VOLUME 89.4 FL (80.0-100.0); MEAN CORPUSCULAR HGB CONC 33.5 % (32.0-36.0); MONO % 6.7 % (0.0-8.0); NEUT % 73.8 % (16.0-70.0); PLATELET COUNT 299 TH/MM3 (150-450); RED BLOOD COUNT 5.08 MIL/MM3 (4.50-5.90)
[2017-07-24 00:51] LABS: ALKALINE PHOSPHATASE 118 U/L (45-117); ALT (GPT) 50 U/L (12-78); TOTAL BILIRUBIN ADULT 0.5 MG/DL (0.2-1.0)
[2017-07-24 00:53] LABS: ANION GAP 6 MEQ/L (5-15); AST (GOT) 67 U/L (15-37); BICARBONATE 31.3 MEQ/L (21.0-32.0); BLOOD UREA NITROGEN 18 MG/DL (7-18); CHLORIDE 105 MEQ/L (98-107); GLOMERULAR FILTRATION RATE 81 ML/MIN (>89); SODIUM (NA) 142 MEQ/L (136-145)
[2017-07-24 00:59] LABS: APTT (PATIENT) 25.9 SEC (24.3-30.1)
--- NOTE | 2017-07-24 01:26 | RADRPT ---
EXAM DATE/TIME: 07/24/2017 00:52 [facility] COMPARISON: CT ABDOMEN & PELVIS W/O CONTRAST, May 30, 2017, 15:34. INDICATIONS : Abdominal pain. History of pancreatitis. ORAL CONTRAST: Prescribed oral contrast ingested. RADIATION DOSE: 10.99 CTDIvol (mGy) MEDICAL HISTORY : Myocardial infarction. Congestive heart failure. Pancreatitis.CVA, GERD, anemia SURGICAL HISTORY : Colon resection. lung transplant ENCOUNTER: Initial ACUITY: 1 day PAIN SCALE: 6/10 LOCATION: abdomen TECHNIQUE: Volumetric scanning of the abdomen and pelvis was performed. Using automated exposure control and ad justment of the mA and/or kV according to patient size, radiation dose was kept as low as reasonably achievable to obtain optimal diagnostic quality images. DICOM format image data is available electro nically for review and comparison. FINDINGS: LOWER LUNGS: The visualized lower lungs are clear. Pericardial fluid is noted anteriorly. LIVER: Homogeneous density without lesion. There is no dilation of the biliary tree. Status post cholecyste ctomy. SPLEEN: Normal size without lesion. PANCREAS: Multiple punctate calcifications are again noted in the head of the pancreas. There is dilatation of the pancreatic duct in the head appears improved. This measures up to approximately 11 mm. There is n o inflammatory change. KIDNEYS: Normal in size and shape. There is no mass, stone, or hydronephrosis. ADRENAL GLANDS: Within normal limits. VASCULAR: There is no aortic aneurysm. BOWEL/MESENTERY: There are multiple loops of nondilated air-containing small bowel with air-fluid levels noted in hema ral of the loops as well as in the colon. There is no free air or fluid. There is no free intraperito nell air or fluid. ABDOMINAL WALL: Within normal limits. RETROPERITONEUM: There is no lymphadenopathy. BLADDER: No wall thickening or mass. A stable bladder diverticulum is again noted along the left side of the b ladder. REPRODUCTIVE: Within normal limits. INGUINAL: There is no lymphadenopathy or hernia. MUSCULOSKELETAL: The patient is again noted to be status post left hip arthroplasty. CONCLUSION: 1. Mildly nonspecific nonobstructive bowel gas pattern which may represent a mild ileus or gastroente ritis. Stable appearance of the pancreas with calcifications again noted in the head and dilatation o f the pancreatic duct. There is no no inflammatory change. 2. Status post cholecystectomy. 3. Stable left-sided bladder diverticulum. 4. Pericardial effusion again noted. Bala Franco MD on July 24, 2017 at 1:20 Board Certified Radiologist. This report was verified electronically.
[2017-07-24] MEDS ORDERED: ACETAMINOPHEN/HYDROcodone 325 MG/5 MG TAB PO ONE (01:30)
[2017-07-24] MEDS ORDERED: SOD PHOSPHATE/SOD BIPHOSPHATE (ADULT) ENEMA 133ML RECTAL ONE (01:45)
[2017-07-24 02:00] VITALS: BP 138/72; PULSE 98; RESP 18; O2SAT 97
[2017-07-24] MEDS ORDERED: ONDANSETRON HCL 4 MG/2 ML VIAL IV PUSH ONE (03:00)
[2017-07-24] MEDS ORDERED: PEG (High)/E-LYTE SOLN 4000 ML BTL PO ONE (03:00)
[2017-07-24] MEDS ORDERED: LIDOCAINE 2% JELLY 30 ML TUBE TOPICAL ONE (03:45)
[2017-07-24 04:31] LABS: BLOOD, URINE NEG (NEG); COMMENT (UR) CULT NOT INDICATED; CULTURE IF INDICATED CULT NOT INDICATED; GLUCOSE,URINE NEG (NEG); KETONE, URINE NEG (NEG); MUCUS URINE FEW /lpf (OCC); NITRITE,URINE NEG (NEG); URINE COLOR YELLOW (YELLW/STRAW)
== END 2017-07-24 05:02 | disposition home or self-care (01) ==
LOC: NEPC 22:27
DX: K59.00 Constipation, unspecified (principal); R33.9 Retention of urine, unspecified; R10.84 Generalized abdominal pain; D64.9 Anemia, unspecified; I11.0 Hypertensive heart disease with heart failure; I50.9 Heart failure, unspecified; Z87.19 Personal history of other diseases of the digestive system; Z85.46 Personal history of malignant neoplasm of prostate; Z85.118 Personal history of other malignant neoplasm of bronchus and lung
CPT/HCPCS: 51702; 74176; 80053; 81001; 83690; 85025; 85610; 85730; 96374; 99285; J2405; J7030; Q9963

== ENCOUNTER 2017-07-26 11:09 | Emergency (ER) | payer MEDICAID ==
[~2017-07-26 11:09] MED LIST changes: -HYDR-3535 PO; +HYDR-3583 PO
[2017-07-26 11:13] VITALS: BP 132/70; PULSE 101; RESP 15; TEMP 98.6; O2SAT 97
[2017-07-26] MEDS ORDERED: SODIUM CHLORIDE 0.9% FLUSH 10 ML FLUSH IV FLUSH PRN ×2 (12:30)
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
[2017-07-26 12:54] VITALS: BP 123/68; PULSE 83; RESP 17; O2SAT 95
[2017-07-26] MEDS ORDERED: HYDROmorphone HCL PF 1 MG/ML VIAL IVS ONE (13:00)
[2017-07-26 13:27] LABS: AUTOMATED NEUTROPHIL # 6.8 TH/MM3 (1.8-7.7); BASOPHIL # 0.1 TH/MM3 (0-0.2); BASOPHIL % 1.1 % (0.0-2.0); EOSINOPHIL # 0.3 TH/MM3 (0-0.4); EOSINOPHIL % 3.5 % (0.0-4.0); HEMATOCRIT 39.8 % (39.0-51.0); HEMO FLAGS DIFF FINAL; LYMPH % 18.6 % (9.0-44.0); LYMPHOCYTE # 1.8 TH/MM3 (1.0-4.8); MEAN CELL VOLUME 89.4 FL (80.0-100.0); MEAN CORPUSCULAR HEMOGLOBIN 29.8 PG (27.0-34.0); MEAN CORPUSCULAR HGB CONC 33.3 % (32.0-36.0); MONO % 6.1 % (0.0-8.0); NEUT % 70.7 % (16.0-70.0); PLATELET COUNT 275 TH/MM3 (150-450); RED BLOOD COUNT 4.45 MIL/MM3 (4.50-5.90); RED CELL DISTRIBUTION WIDTH 14.2 % (11.6-17.2); WHITE BLOOD COUNT 9.6 TH/MM3 (4.0-11.0)
[2017-07-26 13:35] LABS: APTT (PATIENT) 27.5 SEC (24.3-30.1); PROTHROMBIN TIME - PATIENT 10.3 SEC (9.8-11.6)
[2017-07-26 13:51] LABS: BACTERIA, URINE RARE /hpf; BLOOD, URINE LARGE (NEG); COMMENT (UR) CULTURE INDICATED; CULTURE IF INDICATED CULTURE INDICATED; GLUCOSE,URINE NEG (NEG); KETONE, URINE NEG (NEG); MUCUS URINE FEW /lpf (OCC); NITRITE,URINE NEG (NEG); PH, URINE 5.5 (5.0-8.5); SQUAMOUS EPITHELIAL CELL URINE <1 /hpf (0-5); URINE COLOR YELLOW (YELLW/STRAW)
[2017-07-26 13:58] LABS: ALKALINE PHOSPHATASE 116 U/L (45-117); TOTAL BILIRUBIN ADULT 0.8 MG/DL (0.2-1.0)
[2017-07-26 14:00] VITALS: RESP 17
[2017-07-26 14:04] LABS: ALT (GPT) 37 U/L (12-78); ANION GAP 7 MEQ/L (5-15); AST (GOT) 30 U/L (15-37); BICARBONATE 26.9 MEQ/L (21.0-32.0); BLOOD UREA NITROGEN 19 MG/DL (7-18); CHLORIDE 103 MEQ/L (98-107); GLOMERULAR FILTRATION RATE 91 ML/MIN (>89); SODIUM (NA) 137 MEQ/L (136-145)
[2017-07-26 14:05] LABS: POTASSIUM 4.3 MEQ/L (3.5-5.1)
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
[2017-07-26] MEDS ORDERED: cefTRIAXone INJ 1,000 MG in SODIUM CHLORIDE 0.9% INJ 100 ML IV ONE (15:15)
[2017-07-26] MEDS ORDERED: PHENAZOPYRIDINE HCL 200 MG TAB PO ONE (15:15)
[2017-07-26] MEDS ORDERED: CEPH-460 PO (15:34)
[2017-07-26] MEDS ORDERED: PHEN0.4T PO (15:38)
--- NOTE | 2017-07-27 16:05 | EKG ---
Date Performed: 07/26/2017 Time Performed: 14:23:55 PTAGE: 62 years EKG: Sinus rhythm NORMAL ECG Since PREVIOUS TRACING , no significant change noted PREVIOUS TRACIN05/30/2017 15.19 DOCTOR: Jayme Mota Interpretating Date/Time 07/27/2017 16:03:43
== END 2017-07-26 16:31 | disposition home or self-care (01) ==
LOC: NEPE 11:09
DX: K92.2 Gastrointestinal hemorrhage, unspecified (principal); T83.511A Infection and inflammatory reaction due to indwelling urethral catheter, initial encounter; B95.2 Enterococcus as the cause of diseases classified elsewhere; B96.89 Other specified bacterial agents as the cause of diseases classified elsewhere; I11.0 Hypertensive heart disease with heart failure; I50.9 Heart failure, unspecified; I25.2 Old myocardial infarction; I25.10 Atherosclerotic heart disease of native coronary artery without angina pectoris; F17.210 Nicotine dependence, cigarettes, uncomplicated; Z85.46 Personal history of malignant neoplasm of prostate
CPT/HCPCS: 71010; 80053; 81001; 85025; 85610; 85730; 86850; 86900; 86901; 87077; 87086; 87186; 93005; 96374; 96375; 99285; J0696; J1170

== ENCOUNTER 2017-08-10 06:41 | Emergency (ER) | payer MEDICAID ==
[~2017-08-10] VITALS: Ht 177.8 cm; Wt 75.0 kg
[~2017-08-10 06:41] MED LIST changes: +CEPH-460 PO; +PHEN0.4T PO
[2017-08-10 06:42] VITALS: BP 141/80; PULSE 104; RESP 16; TEMP 98.2; O2SAT 98
[2017-08-10] MEDS ORDERED: SODIUM CHLOR 0.9% 1000 ML INJ 1,000 ML IV SCH (07:08)
[2017-08-10] MEDS ORDERED: ONDANSETRON HCL 4 MG/2 ML VIAL IVP ONE (07:15)
[2017-08-10] MEDS ORDERED: FAMOTIDINE 20 MG/2 ML VIAL IV PUSH ONE (07:15)
[2017-08-10] MEDS ORDERED: SODIUM CHLORIDE 0.9% FLUSH 10 ML FLUSH IV FLUSH PRN (07:15)
[2017-08-10] MEDS ORDERED: HYDROmorphone HCL PF 2 MG/ML VIAL IV PUSH ONE (07:15)
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
[2017-08-10 07:42] LABS: AUTOMATED NEUTROPHIL # 5.3 TH/MM3 (1.8-7.7); BASOPHIL # 0.1 TH/MM3 (0-0.2); BASOPHIL % 1.4 % (0.0-2.0); EOSINOPHIL # 0.7 TH/MM3 (0-0.4); EOSINOPHIL % 7.7 % (0.0-4.0); HEMATOCRIT 41.7 % (39.0-51.0); HEMOGLOBIN 13.8 GM/DL (13.0-17.0); LYMPH % 20.4 % (9.0-44.0); LYMPHOCYTE # 1.8 TH/MM3 (1.0-4.8); MEAN CELL VOLUME 88.9 FL (80.0-100.0); MEAN CORPUSCULAR HEMOGLOBIN 29.4 PG (27.0-34.0); MEAN CORPUSCULAR HGB CONC 33.1 % (32.0-36.0); MEAN PLATELET VOLUME 7.1 FL (7.0-11.0); MONOCYTE # 0.8 TH/MM3 (0-0.9); NEUT % 61.5 % (16.0-70.0); PLATELET COUNT 344 TH/MM3 (150-450); RED BLOOD COUNT 4.69 MIL/MM3 (4.50-5.90); RED CELL DISTRIBUTION WIDTH 14.1 % (11.6-17.2); WHITE BLOOD COUNT 8.7 TH/MM3 (4.0-11.0)
[2017-08-10 07:49] LABS: BACTERIA, URINE MOD /hpf; BILIRUBIN, URINE NEG (NEG); BLOOD, URINE SMALL (NEG); GLUCOSE,URINE NEG (NEG); HYALINE CAST, URINE 1 /lpf (RARE); KETONE, URINE NEG (NEG); MUCUS URINE FEW /lpf (OCC); NITRITE,URINE NEG (NEG); PH, URINE 5.5 (5.0-8.5); URINE COLOR YELLOW (YELLW/STRAW); URINE LEUKOCYTE ESTERASE SMALL (NEG); WHITE BLOOD CELL CLUMPS RARE
[2017-08-10 07:50] LABS: PROTHROMBIN TIME - PATIENT 9.8 SEC (9.8-11.6)
[2017-08-10 08:00] LABS: ALKALINE PHOSPHATASE 100 U/L (45-117); TOTAL PROTEIN 8.2 GM/DL (6.4-8.2)
[2017-08-10 08:02] LABS: ALBUMIN 3.4 GM/DL (3.4-5.0); ALT (GPT) 21 U/L (12-78); AST (GOT) 17 U/L (15-37); BICARBONATE 24.5 MEQ/L (21.0-32.0); BLOOD UREA NITROGEN 24 MG/DL (7-18); CALCIUM 9.1 MG/DL (8.5-10.1); CHLORIDE 109 MEQ/L (98-107); CREATININE 0.92 MG/DL (0.60-1.30); GLOMERULAR FILTRATION RATE 101 ML/MIN (>89); GLUCOSE,RANDOM 141 MG/DL (74-106); LIPASE 218 U/L (73-393); SODIUM (NA) 140 MEQ/L (136-145); TOTAL BILIRUBIN ADULT 0.2 MG/DL (0.2-1.0)
--- NOTE | 2017-08-10 09:49 | RADRPT ---
EXAM DATE/TIME: 08/10/2017 07:42 [facility] COMPARISON: Prior study 07/24/17, use for comparison. INDICATIONS : Abdominal pain. ORAL CONTRAST: No oral contrast ingested. RADIATION DOSE: 8.16 CTDIvol (mGy) MEDICAL HISTORY : Carcinoma, prostate. Inflammatory bowel disease. Pancreatitis. GERD, ulcers, hiatal hernia. SURGICAL HISTORY : Cholecystectomy. ENCOUNTER: Initial ACUITY: 1 day PAIN SCALE: 5/10 LOCATION: Bilateral lower quadrant TECHNIQUE: Volumetric scanning of the abdomen and pelvis was performed. Using automated exposure control and ad justment of the mA and/or kV according to patient size, radiation dose was kept as low as reasonably achievable to obtain optimal diagnostic quality images. DICOM format image data is available electro nically for review and comparison. FINDINGS: CT abdomen and pelvis again demonstrates small pericardial effusion. Gallbladder surgically absent. The unenhanced liver, adrenal glands, kidneys and spleen are unremarkable. There is prominent ducta l dilatation of the pancreas with some calcifications of the pancreatic head. I do not see a pancrea tic mass on this unenhanced study. Pancreatic duct remains almost 11 mm across. I do not see any ta il atrophy. There is arthritic change of the right SI joint. There has been a left total hip arthroplasty. Lung bases are clear. There again is a soft tissue mass left adan-pelvis could be a bladder diverticulum. No other pelvis masses are identified. CONCLUSION: Left-sided pelvic sidewall mass I suspect is a bladder diverticulum unchanged from the previous study . Chronic pancreatitis with pancreatic head calcifications and a dilated duct unchanged. Status post c holecystectomy. No free fluid or inflammation identified. Les Smart MD on August 10, 2017 at 9:06 Board Certified Radiologist. This report was verified electronically.
[2017-08-10] MEDS ORDERED: PROM25TA10 PO (10:16)
== END 2017-08-10 10:25 | disposition home or self-care (01) ==
LOC: NEPC 06:41
DX: N30.00 Acute cystitis without hematuria (principal); B96.89 Other specified bacterial agents as the cause of diseases classified elsewhere; G89.29 Other chronic pain; R10.9 Unspecified abdominal pain; D64.9 Anemia, unspecified; I11.0 Hypertensive heart disease with heart failure; I50.9 Heart failure, unspecified; I25.10 Atherosclerotic heart disease of native coronary artery without angina pectoris; K21.9 Gastro-esophageal reflux disease without esophagitis
CPT/HCPCS: 74176; 80053; 81001; 83690; 85025; 85610; 85730; 87077; 87086; 87186; 96361; 96374; 96375; 99285; J1170; J2405; J7030

== ENCOUNTER 2017-08-17 14:29 | Emergency (ER) | payer OTHER, MEDICAID ==
[~2017-08-17 14:29] MED LIST changes: +PROM25TA10 PO
[2017-08-17 14:31] VITALS: BP 133/74; PULSE 103; RESP 14; TEMP 97.6; O2SAT 97
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
[2017-08-17] MEDS ORDERED: METO100T PO (16:43)
[2017-08-17] MEDS ORDERED: ZENP1000 PO (16:43)
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
[2017-08-17] MEDS ORDERED: ONDANSETRON HCL 4 MG/2 ML VIAL IVP ONE (17:15)
[2017-08-17] MEDS ORDERED: SODIUM CHLORIDE 0.9% FLUSH 10 ML FLUSH IV FLUSH PRN (17:15)
[2017-08-17 18:37] VITALS: O2SAT 98
[2017-08-17] MEDS ORDERED: ONDANSETRON ODT 4 MG TAB PO ONE (18:45)
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
[2017-08-17 19:35] VITALS: BP 132/73; PULSE 81; RESP 18; O2SAT 98
[2017-08-17 19:51] LABS: AUTOMATED NEUTROPHIL # 4.1 TH/MM3 (1.8-7.7); BASOPHIL # 0.1 TH/MM3 (0-0.2); BASOPHIL % 1.3 % (0.0-2.0); EOSINOPHIL # 0.4 TH/MM3 (0-0.4); EOSINOPHIL % 5.9 % (0.0-4.0); HEMATOCRIT 40.3 % (39.0-51.0); HEMOGLOBIN 12.9 GM/DL (13.0-17.0); LYMPH % 24.9 % (9.0-44.0); LYMPHOCYTE # 1.7 TH/MM3 (1.0-4.8); MEAN CELL VOLUME 88.5 FL (80.0-100.0); MEAN CORPUSCULAR HEMOGLOBIN 28.4 PG (27.0-34.0); MEAN CORPUSCULAR HGB CONC 32.1 % (32.0-36.0); MEAN PLATELET VOLUME 6.9 FL (7.0-11.0); MONO % 6.7 % (0.0-8.0); MONOCYTE # 0.4 TH/MM3 (0-0.9); NEUT % 61.2 % (16.0-70.0); PLATELET COUNT 284 TH/MM3 (150-450); RED BLOOD COUNT 4.55 MIL/MM3 (4.50-5.90); RED CELL DISTRIBUTION WIDTH 14.2 % (11.6-17.2); WHITE BLOOD COUNT 6.8 TH/MM3 (4.0-11.0)
[2017-08-17 19:57] LABS: BACTERIA, URINE RARE /hpf; BILIRUBIN, URINE NEG (NEG); BLOOD, URINE NEG (NEG); GLUCOSE,URINE NEG (NEG); KETONE, URINE NEG (NEG); MUCUS URINE FEW /lpf (OCC); NITRITE,URINE NEG (NEG); PH, URINE 5.5 (5.0-8.5); SQUAMOUS EPITHELIAL CELL URINE <1 /hpf (0-5); URINE COLOR YELLOW (YELLW/STRAW); URINE LEUKOCYTE ESTERASE NEG (NEG)
[2017-08-17 20:11] LABS: BICARBONATE 26.5 MEQ/L (21.0-32.0); CALCIUM 8.9 MG/DL (8.5-10.1); CREATININE 0.96 MG/DL (0.60-1.30)
[2017-08-17] MEDS ORDERED: ACETAMINOPHEN/HYDROcodone 325 MG/5 MG TAB PO ONE (20:15)
[2017-08-17] MEDS ORDERED: ROBA500T PO (20:18)
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
== END 2017-08-17 20:59 | disposition home or self-care (01) ==
LOC: NEPD 14:29
DX: T14.8XXA Other injury of unspecified body region, initial encounter (principal); M54.5 Low back pain; R10.11 Right upper quadrant pain; R11.0 Nausea; J45.909 Unspecified asthma, uncomplicated; I11.0 Hypertensive heart disease with heart failure; V29.49XA Motorcycle driver injured in collision with other motor vehicles in traffic accident, initial encounter; Y93.55 Activity, bike riding; Y92.410 Unspecified street and highway as the place of occurrence of the external cause; Z72.0 Tobacco use; Z79.01 Long term (current) use of anticoagulants
CPT/HCPCS: 70450; 71020; 72125; 72131; 74176; 80048; 81001; 85025; 96374

== ENCOUNTER 2017-08-23 18:42 | Emergency (ER) | payer MEDICAID ==
[~2017-08-23] VITALS: Ht 177.8 cm; Wt 75.0 kg
[~2017-08-23 18:42] MED LIST changes: -CEPH-460 PO; +METO100T PO; -PHEN0.4T PO; -PROM12.54 PO; +ROBA500T PO; -TAMS5CAP PO; +ZENP1000 PO
[2017-08-23 18:44] VITALS: BP 137/73; PULSE 79; RESP 16; TEMP 97.9; O2SAT 96
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
[2017-08-23] MEDS ORDERED: TAMSULOSIN HCL 0.4 MG CAP PO ONE (21:00)
[2017-08-23 21:41] LABS: ALBUMIN 4.1 GM/DL (3.4-5.0); ALT (GPT) 34 U/L (12-78); AST (GOT) 21 U/L (15-37); BICARBONATE 25.2 MEQ/L (21.0-32.0); BLOOD UREA NITROGEN 18 MG/DL (7-18); CALCIUM 9.6 MG/DL (8.5-10.1); CHLORIDE 105 MEQ/L (98-107); CREATININE 0.95 MG/DL (0.60-1.30); GLOMERULAR FILTRATION RATE 97 ML/MIN (>89); SODIUM (NA) 138 MEQ/L (136-145)
[2017-08-23 21:42] LABS: ALKALINE PHOSPHATASE 129 U/L (45-117); GLUCOSE,RANDOM 83 MG/DL (74-106); TOTAL BILIRUBIN ADULT 0.3 MG/DL (0.2-1.0); TOTAL PROTEIN 8.9 GM/DL (6.4-8.2)
[2017-08-23] MEDS ORDERED: TAMS5CAP PO (22:26)
[2017-08-23 23:12] LABS: BACTERIA, URINE RARE /hpf; BILIRUBIN, URINE NEG (NEG); BLOOD, URINE MOD (NEG); GLUCOSE,URINE NEG (NEG); KETONE, URINE NEG (NEG); MUCUS URINE FEW /lpf (OCC); NITRITE,URINE NEG (NEG); PH, URINE 6.5 (5.0-8.5); URINE COLOR YELLOW (YELLW/STRAW); URINE LEUKOCYTE ESTERASE LARGE (NEG); WHITE BLOOD CELL CLUMPS MANY
== END 2017-08-24 04:14 | disposition left against medical advice (07) ==
LOC: NEPC 18:42
DX: R30.0 Dysuria (principal); N48.89 Other specified disorders of penis; B95.2 Enterococcus as the cause of diseases classified elsewhere; C61 Malignant neoplasm of prostate; I11.0 Hypertensive heart disease with heart failure; I50.9 Heart failure, unspecified; I25.10 Atherosclerotic heart disease of native coronary artery without angina pectoris; F41.9 Anxiety disorder, unspecified; F17.210 Nicotine dependence, cigarettes, uncomplicated
CPT/HCPCS: 80053; 81001; 87077; 87086; 87186; 99283

== ENCOUNTER 2017-09-04 18:46 | Emergency (ER) | payer OTHER, MEDICAID ==
[2017-09-04] VITALS (7 sets, daily range): BP systolic 114–149; BP diastolic 64–76; PULSE 66–81; RESP 16–20; TEMP 98.3; O2SAT 97–99
[~2017-09-04] VITALS: Ht 177.8 cm; Wt 81.9 kg
[~2017-09-04 18:46] MED LIST changes: -HYDR-3583 PO; -PROM25TA10 PO; -ROBA500T PO; +TAMS5CAP PO
[2017-09-04] MEDS ORDERED: PERC10TA27 PO (19:23)
[2017-09-04] MEDS ORDERED: SODIUM CHLORIDE 0.9% FLUSH 10 ML FLUSH IVF PRN (19:30)
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
--- NOTE | 2017-09-04 20:13 | RADRPT ---
EXAM DATE/TIME: 09/04/2017 19:47 [facility] COMPARISON: CT BRAIN W/O CONTRAST, August 17, 2017, 15:58. INDICATIONS : Dizziness. RADIATION DOSE: 58.53 CTDIvol (mGy) MEDICAL HISTORY : Cerebrovascular disease. Cardiovascular disease SURGICAL HISTORY : None. ENCOUNTER: Initial ACUITY: 2 weeks PAIN SCALE: 9/10 LOCATION: Bilateral cranial TECHNIQUE: Multiple contiguous axial images were obtained of the head. Using automated exposure control and adj ustment of the mA and/or kV according to patient size, radiation dose was kept as low as reasonably a chievable to obtain optimal diagnostic quality images. DICOM format image data is available electro nically for review and comparison. FINDINGS: CEREBRUM: The ventricles are normal for age. No evidence of midline shift, mass lesion, hemorrhage or acute in farction. No extra-axial fluid collections are seen. POSTERIOR FOSSA: The cerebellum and brainstem are intact. The 4th ventricle is midline. The cerebellopontine angle i s unremarkable. EXTRACRANIAL: The visualized portion of the orbits is intact. SKULL: The calvaria is intact. No evidence of skull fracture. CONCLUSION: No acute disease. Polo Hogan Jr., MD on September 04, 2017 at 20:09 Board Certified Radiologist. This report was verified electronically.
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
[2017-09-04 20:35] LABS: BILIRUBIN, URINE NEG (NEG); BLOOD, URINE NEG (NEG); GLUCOSE,URINE NEG (NEG); KETONE, URINE NEG (NEG); NITRITE,URINE NEG (NEG); URINE LEUKOCYTE ESTERASE NEG (NEG)
[2017-09-04 20:50] LABS: URINE COLOR YELLOW (YELLW/STRAW)
[2017-09-04 20:52] LABS: SQUAMOUS EPITHELIAL CELL URINE 0-5 /hpf (0-5); WBC, URINE 0-2 /hpf (0-5)
[2017-09-04 20:55] LABS: AUTOMATED NEUTROPHIL # 4.8 TH/MM3 (1.8-7.7); BASOPHIL # 0.1 TH/MM3 (0-0.2); BASOPHIL % 1.9 % (0.0-2.0); EOSINOPHIL # 0.2 TH/MM3 (0-0.4); HEMATOCRIT 38.3 % (39.0-51.0); HEMOGLOBIN 12.5 GM/DL (13.0-17.0); LYMPH % 21.5 % (9.0-44.0); LYMPHOCYTE # 1.5 TH/MM3 (1.0-4.8); MEAN CELL VOLUME 87.5 FL (80.0-100.0); MEAN CORPUSCULAR HEMOGLOBIN 28.5 PG (27.0-34.0); MEAN CORPUSCULAR HGB CONC 32.6 % (32.0-36.0); MEAN PLATELET VOLUME 6.2 FL (7.0-11.0); MONO % 6.6 % (0.0-8.0); MONOCYTE # 0.5 TH/MM3 (0-0.9); PLATELET COUNT 580 TH/MM3 (150-450); RED BLOOD COUNT 4.38 MIL/MM3 (4.50-5.90); RED CELL DISTRIBUTION WIDTH 13.8 % (11.6-17.2); WHITE BLOOD COUNT 7.1 TH/MM3 (4.0-11.0)
[2017-09-04 21:05] LABS: CHLORIDE 102 MEQ/L (98-107); SODIUM (NA) 136 MEQ/L (136-145)
[2017-09-04 21:08] LABS: CALCIUM 8.9 MG/DL (8.5-10.1)
[2017-09-04 21:09] LABS: ALBUMIN 3.4 GM/DL (3.4-5.0); BICARBONATE 26.2 MEQ/L (21.0-32.0); BLOOD UREA NITROGEN 12 MG/DL (7-18); GLUCOSE,RANDOM 94 MG/DL (74-106); MAGNESIUM 2.1 MG/DL (1.5-2.5)
[2017-09-04 21:11] LABS: INTERNATIONAL NORMALIZED RATIO 1.1 RATIO; PROTHROMBIN TIME - PATIENT 10.8 SEC (9.8-11.6)
[2017-09-04 21:12] LABS: ALT (GPT) 26 U/L (12-78); AST (GOT) 18 U/L (15-37); CREATININE 0.81 MG/DL (0.60-1.30); GLOMERULAR FILTRATION RATE 117 ML/MIN (>89)
[2017-09-04 21:13] LABS: TOTAL BILIRUBIN ADULT 0.3 MG/DL (0.2-1.0); TOTAL PROTEIN 7.5 GM/DL (6.4-8.2)
[2017-09-04 21:14] LABS: ALKALINE PHOSPHATASE 123 U/L (45-117)
[2017-09-04 21:17] LABS: TROPONIN I LESS THAN 0.02 NG/ML (0.02-0.05)
[2017-09-04] MEDS ORDERED: oxyCODONE/ACETAMINOPHEN 5 MG/325 MG TAB PO ONE (21:45)
[2017-09-04 22:12] LABS: LIPASE 124 U/L (73-393)
[2017-09-04] MEDS ORDERED: MECL1TAB42 PO (22:32)
[2017-09-04] MEDS ORDERED: ZOFR4TAB3 SL (22:32)
--- NOTE | 2017-09-04 22:56 | RADRPT ---
EXAM DATE/TIME: 09/04/2017 22:05 [facility] COMPARISON: CT ABDOMEN & PELVIS W/O CONTRAST, May 03, 2015, 11:31. CT ABDOMEN & PELVIS W/O CONTRAST, Jermainem 2016, 18:27. INDICATIONS : Right abdominal pain for two weeks. ORAL CONTRAST: No oral contrast ingested. RADIATION DOSE: 11.40 CTDIvol (mGy) MEDICAL HISTORY : Cerebrovascular disease. Cardiovascular disease Carcinoma, prostate. SURGICAL HISTORY : Cholecystectomy. Right lung transplant. ENCOUNTER: Initial ACUITY: 2 weeks PAIN SCALE: 9/10 LOCATION: Right flank TECHNIQUE: Volumetric scanning of the abdomen and pelvis was performed. Using automated exposure control and ad justment of the mA and/or kV according to patient size, radiation dose was kept as low as reasonably achievable to obtain optimal diagnostic quality images. DICOM format image data is available electro nically for review and comparison. FINDINGS: LOWER LUNGS: A small pericardial effusion is stable. Lung bases are clear. LIVER: Homogeneous density without lesion. There is no dilation of the biliary tree. Gallbladder is surgica lly absent. SPLEEN: Normal size without lesion. PANCREAS: The appearance of the pancreas is long-term stable. Calcifications within the parenchyma are again se en within the pancreatic head and uncinate process. There is dilatation of the pancreatic duct reachi ng a diameter of 12 mm. No mass or obstructing stone observed. No surrounding inflammatory change. KIDNEYS: Normal in size and shape. There is no mass, stone, or hydronephrosis. ADRENAL GLANDS: Within normal limits. VASCULAR: There is no aortic aneurysm. BOWEL/MESENTERY: The stomach, small bowel, and colon demonstrate no acute abnormality. There is no free intraperitone al air or fluid. ABDOMINAL WALL: Within normal limits. RETROPERITONEUM: There is no lymphadenopathy. BLADDER: There is a 5 cm fluid filled structure involving the left hemipelvis abutting the left posterior late ral wall the urinary bladder. This is felt to relate to a diverticulum from the bladder. This is long -term stable. Urinary bladder is otherwise unremarkable. REPRODUCTIVE: Within normal limits. INGUINAL: There is no lymphadenopathy or hernia. MUSCULOSKELETAL: Within normal limits for patient age. CONCLUSION: 1. No acute abnormality. 2. Long-term stable changes involving the pancreatic head consistent with chronic pancreatitis. 3. Prior cholecystectomy. 4. 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 Polo Hogan Jr., MD on September 04, 2017 at 22:49 Board Certified Radiologist. This report was verified electronically.
--- NOTE | 2017-09-05 15:08 | EKG ---
Date Performed: 09/04/2017 Time Performed: 19:43:56 PTAGE: 62 years EKG: Sinus rhythm Since previous tracing, no significant change noted NORMAL ECG PREVIOUS TRACING : 07/26/2017 14.23 DOCTOR: Yecenia Heredia Interpretating Date/Time 09/05/2017 15:08:28
== END 2017-09-04 23:39 | disposition home or self-care (01) ==
LOC: PHED 18:46
DX: R42 Dizziness and giddiness (principal); F07.81 Postconcussional syndrome; J44.9 Chronic obstructive pulmonary disease, unspecified; I10 Essential (primary) hypertension; I50.9 Heart failure, unspecified; I67.9 Cerebrovascular disease, unspecified; I25.10 Atherosclerotic heart disease of native coronary artery without angina pectoris; D64.9 Anemia, unspecified; F41.9 Anxiety disorder, unspecified; K21.9 Gastro-esophageal reflux disease without esophagitis; M81.0 Age-related osteoporosis without current pathological fracture; M19.90 Unspecified osteoarthritis, unspecified site; I25.2 Old myocardial infarction; K86.1 Other chronic pancreatitis; F17.210 Nicotine dependence, cigarettes, uncomplicated; V13.4XXA Pedal cycle driver injured in collision with car, pick-up truck or van in traffic accident, initial encounter; Z85.118 Personal history of other malignant neoplasm of bronchus and lung; Z85.46 Personal history of malignant neoplasm of prostate; Z86.73 Personal history of transient ischemic attack (TIA), and cerebral infarction without residual deficits; Z88.5 Allergy status to narcotic agent; Z88.6 Allergy status to analgesic agent; Z88.8 Allergy status to other drugs, medicaments and biological substances; Z90.49 Acquired absence of other specified parts of digestive tract; Z79.899 Other long term (current) drug therapy
CPT/HCPCS: 70450; 71045; 74176; 80053; 81001; 82550; 82552; 83690; 83735; 84484; 85025; 85610; 85730; 93005

== ENCOUNTER 2017-11-27 17:45 | Emergency (ER) | payer MEDICAID ==
[~2017-11-27] VITALS: Ht 177.8 cm; Wt 72.7 kg
[~2017-11-27 17:45] MED LIST changes: +MECL1TAB42 PO; -METO50TA PO; +PERC10TA27 PO; +ZOFR4TAB3 SL
[2017-11-27 17:50] VITALS: BP 154/79; PULSE 75; RESP 18; TEMP 98.6; O2SAT 99
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
[2017-11-27 19:47] LABS: ALBUMIN 3.9 GM/DL (3.4-5.0); AST (GOT) 18 U/L (15-37); BICARBONATE 21.8 MEQ/L (21.0-32.0); BLOOD UREA NITROGEN 12 MG/DL (7-18); CALCIUM 9.2 MG/DL (8.5-10.1); CHLORIDE 105 MEQ/L (98-107); GLOMERULAR FILTRATION RATE 103 ML/MIN (>89); GLUCOSE,RANDOM 95 MG/DL (74-106); MAGNESIUM 1.9 MG/DL (1.5-2.5); SODIUM (NA) 135 MEQ/L (136-145)
[2017-11-27 19:51] LABS: ALKALINE PHOSPHATASE 99 U/L (45-117); ALT (GPT) 23 U/L (12-78); TOTAL PROTEIN 8.1 GM/DL (6.4-8.2); TROPONIN I LESS THAN 0.02 NG/ML (0.02-0.05)
[2017-11-27] MEDS ORDERED: MECLIZINE HCL 25 MG TAB PO ONE (21:00)
[2017-11-27] MEDS ORDERED: SODIUM CHLORID 0.9% 500 ML INJ 500 ML IV ONE (21:00)
[2017-11-27 21:07] VITALS: BP 155/80; PULSE 61; RESP 16; O2SAT 98
[2017-11-27 21:49] LABS: AUTOMATED NEUTROPHIL # 5.4 TH/MM3 (1.8-7.7); BASOPHIL # 0.1 TH/MM3 (0-0.2); BASOPHIL % 0.9 % (0.0-2.0); EOSINOPHIL # 0.3 TH/MM3 (0-0.4); EOSINOPHIL % 2.9 % (0.0-4.0); HEMATOCRIT 46.9 % (39.0-51.0); HEMOGLOBIN 15.4 GM/DL (13.0-17.0); LYMPH % 27.6 % (9.0-44.0); LYMPHOCYTE # 2.4 TH/MM3 (1.0-4.8); MEAN CELL VOLUME 90.6 FL (80.0-100.0); MEAN CORPUSCULAR HEMOGLOBIN 29.8 PG (27.0-34.0); MEAN CORPUSCULAR HGB CONC 32.9 % (32.0-36.0); MEAN PLATELET VOLUME 7.4 FL (7.0-11.0); MONO % 6.4 % (0.0-8.0); MONOCYTE # 0.6 TH/MM3 (0-0.9); NEUT % 62.2 % (16.0-70.0); PLATELET COUNT 335 TH/MM3 (150-450); RED BLOOD COUNT 5.18 MIL/MM3 (4.50-5.90); RED CELL DISTRIBUTION WIDTH 14.7 % (11.6-17.2); WHITE BLOOD COUNT 8.7 TH/MM3 (4.0-11.0)
[2017-11-27 21:52] LABS: PROTHROMBIN TIME - PATIENT 10.2 SEC (9.8-11.6)
--- NOTE | 2017-11-27 21:53 | EKG ---
Date Performed: 11/27/2017 Time Performed: 19:00:36 PTAGE: 62 years EKG: Sinus rhythm NORMAL ECG No significant change from prior electrocardiogram. PREVIOUS TRACING : 09/04/2017 19.43 DOCTOR: Rick Mayorga Interpretating Date/Time 11/27/2017 21:52:01
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
[2017-11-27] MEDS ORDERED: METOCLOPRAMIDE HCL 10 MG TAB PO ONE (23:15)
[2017-11-27] MEDS ORDERED: TAMSULOSIN HCL 0.4 MG CAP PO ONE (23:15)
[2017-11-27] MEDS ORDERED: MECL-62 PO (23:31)
[2017-11-27] MEDS ORDERED: TAMS5CAP PO (23:46)
== END 2017-11-27 23:51 | disposition home or self-care (01) ==
LOC: NEPE 17:45
DX: R42 Dizziness and giddiness (principal); F17.210 Nicotine dependence, cigarettes, uncomplicated; I11.0 Hypertensive heart disease with heart failure; I50.9 Heart failure, unspecified; M25.562 Pain in left knee; R07.9 Chest pain, unspecified
CPT/HCPCS: 70450; 71046; 73564; 80053; 82550; 82552; 83690; 83735; 84484; 85025; 85610; 85730; 93005; 96360; 99285; J7040

== ENCOUNTER 2017-12-15 12:22 | Emergency (ER) | payer MEDICAID ==
[~2017-12-15] VITALS: Ht 180.3 cm; Wt 75.0 kg
[~2017-12-15 12:22] MED LIST changes: +MECL-62 PO
[2017-12-15 12:28] VITALS: BP 131/74; PULSE 93; RESP 16; TEMP 98.3; O2SAT 98
--- NOTE | 2017-12-15 12:55 | PD ---
HPI Chief Complaint: Pain: Acute or Chronic Time Seen by Provider: 12:34 Travel History International Travel<30 days: No Contact w/Intl Traveler<30days: No Traveled to known affect area: No History of Present Illness HPI 62-year-old male presents emergency department for evaluation of left calf pain after being sent by his physician today. Patient states that Dr. Rollins at [facility] sent into the emergency department for evaluation of left calf pain. Says that he rode his bike yesterday approximately 4 miles, took a nap and woke up with pain in the left calf. Patient decided to hold off until his appointment today with his primary care physician. Says his pain is aching, constant, worse with palpation and movement. Denies numbness or tingling. mild to moderate in severity. Patient does have prostate cancer and sees Dr. Gauthier regularly for blood test and evaluation. In addition, patient states that he has a history of OR (8 months ago) requiring stents however has been unable to obtain these because he is unable to be placed on a blood thinner. Patient says that he is not on any blood thinners because of a "major GI surgery" by Dr. Saenz to who recommended no blood thinners. Patient also has a history of a lung transplant with Dr. Michael (4 years ago) and was advised to perform regular exercise to keep his "lungs expanded". Says that he has been riding his bike 4-5 miles a day without any issues. Denies fevers, chills, chest pain , shortness of breath. PFSH Past Medical History Hx Anticoagulant Therapy: Yes Anemia: Yes Arthritis: Yes Asthma: Yes Autoimmune Disease: No Blood Disorders: No Anxiety: Yes Depression: No Heart Rhythm Problems: No Cancer: Yes (PROSTATE) Cardiac Catheterization: Yes Cardiovascular Problems: Yes High Cholesterol: No Chest Pain: Yes Congestive Heart Failure: Yes COPD: No Cerebrovascular Accident: Yes Coronary Artery Disease: Yes Diabetes: No Diminished Hearing: No Endocrine: No Gastrointestinal Disorders: Yes (GI Bleed) GERD: Yes Glaucoma: No Genitourinary: Yes (RETENTION FROM PROSTATE ENLARGEMENT) Headaches: No Hepatitis: No Hiatal Hernia: Yes Heparin Induced Thrombocytopen: No Hypertension: Yes 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") Implanted Vascular Access Dvce: Yes Musculoskeletal: No Neurologic: Yes Psychiatric: Yes (HX of Alcohol Abuse/Encephalopathy) Reproductive: No Respiratory: Yes (lung transplant) Immunizations Current: Yes Myocardial Infarction: Yes Pancreatitis: Yes Pneumonia: Yes Radiation Therapy: Yes Sickle Cell Disease: No Sleep Apnea: Yes Thyroid Disease: No Ulcer: Yes PNEUMOCCOCAL Vaccine (Year): 1 Past Surgical History Abdominal Surgery: Yes (COLON) AICD: No Appendectomy: No Arteriovenous Shunt: No Body Medical Devices: TITANIUM MIKE IN LEFT HIP, BULLET IN RIGHT SHOULDER Cardiac Surgery: Yes Cholecystectomy: Yes Coronary Artery Bypass Graft: No Ear Surgery: No Endocrine Surgery: No Eye Surgery: No Genitourinary Surgery: No Gynecologic Surgery: No Insulin Pump: No Joint Replacement: Yes (L hip, L rotator cuff) Oral Surgery: No Pacemaker: No Thoracic Surgery: Yes (lung transplant) Other Surgery: Yes (pelvic surgery) Social History Alcohol Use: No Tobacco Use: Yes (2 CIGS DAILY) Substance Use: No Allergies-Medications (Allergen,Severity, Reaction): Coded Allergies: ciprofloxacin (Unverified Allergy, Severe, RASH, SWOLLEN FACE, 11/27/17) codeine (Unverified Allergy, Severe, sob, 11/27/17) diclofenac (Unverified Allergy, Severe, 11/27/17) doxazosin (Unverified Allergy, Severe, SOB,CHEST PAIN, 11/27/17) etodolac (Unverified Allergy, Severe, 11/27/17) famotidine (Unverified Allergy, Severe, MADE HIM SUICIDAL, 11/27/17) flurbiprofen (Unverified Allergy, Severe, 11/27/17) ibuprofen (Unverified Allergy, Severe, 11/27/17) indomethacin (Unverified Allergy, Severe, 11/27/17) ketoprofen (Unverified Allergy, Severe, 11/27/17) ketorolac (Unverified Allergy, Severe, 11/27/17) loperamide (Unverified Allergy, Severe, rash, 11/27/17) BROKE OUT IN RASH, AND SWELLING AROUND NECK naproxen (Unverified Allergy, Severe, 11/27/17) oxaprozin (Unverified Allergy, Severe, 11/27/17) pantoprazole (Unverified Allergy, Severe, MADE HIM SUICIDAL, 11/27/17) spironolactone (Unverified Allergy, Severe, Bleeding, 11/27/17) fentanyl (Unverified Allergy, Intermediate, rash, 11/27/17) morphine (Unverified Allergy, Intermediate, Rash, 11/27/17) MRI PRECAUTION (Verified Adverse Reaction, Severe, SHRAPNEL IN C-SPINE per Dr. Smart 10/26/04, 11/27/17) amcinonide (Unverified Adverse Reaction, Severe, HEART MURMUR, 11/27/17) beclomethasone (Unverified Adverse Reaction, Severe, HEART MURMUR, 11/27/17) betamethasone (Unverified Adverse Reaction, Severe, HEART MURMUR, 11/27/17) desoximetasone (Unverified Adverse Reaction, Severe, HEART MURMUR, 11/27/17) dexamethasone (Unverified Adverse Reaction, Severe, HEART MURMUR, 11/27/17) diatrizoate meglumine (Unverified Adverse Reaction, Severe, BLISTERS AND EDEMA AT SITE, 11/27/17) IV CONTRAST DYE ONLY, PT IS NOT ALLERGIC TO ORAL CONTRAST PER REPORT fludrocortisone (Unverified Adverse Reaction, Severe, HEART MURMUR, 11/27/17 ) flunisolide (Unverified Adverse Reaction, Severe, HEART MURMUR, 11/27/17) fluocinolone acetonide (Unverified Adverse Reaction, Severe, HEART MURMUR , 11/27/17) fluocinonide (Unverified Adverse Reaction, Severe, HEART MURMUR, 11/27/17) fluorometholone (Unverified Adverse Reaction, Severe, HEART MURMUR, 11/27/17 ) flurandrenolide (Unverified Adverse Reaction, Severe, HEART MURMUR, 11/27/17 ) fluticasone (Unverified Adverse Reaction, Severe, HEART MURMUR, 11/27/17) fluticasone furoate (Unverified Adverse Reaction, Severe, HEART MURMUR, 11/27/17) gadobenic acid (Unverified Adverse Reaction, Severe, BLISTERS AND EDEMA AT SITE, 11/27/17) IV CONTRAST DYE ONLY, PT IS NOT ALLERGIC TO ORAL CONTRAST PER REPORT gadodiamide (Unverified Adverse Reaction, Severe, BLISTERS AND EDEMA AT SITE, 11/27/17) IV CONTRAST DYE ONLY, PT IS NOT ALLERGIC TO ORAL CONTRAST PER REPORT gadoteridol (Unverified Adverse Reaction, Severe, BLISTERS AND EDEMA AT SITE, 11/27/17) IV CONTRAST DYE ONLY, PT IS NOT ALLERGIC TO ORAL CONTRAST PER REPORT hydrocortisone (Unverified Adverse Reaction, Severe, HEART MURMUR, 11/27/17) iodixanol (Unverified Adverse Reaction, Severe, BLISTERS AND EDEMA AT SITE , 11/27/17) IV CONTRAST DYE ONLY, PT IS NOT ALLERGIC TO ORAL CONTRAST PER REPORT iohexol (Unverified Adverse Reaction, Severe, BLISTERS AND EDEMA AT SITE, 11/27/17) IV CONTRAST DYE ONLY, PT IS NOT ALLERGIC TO ORAL CONTRAST PER REPORT methylprednisolone (Unverified Adverse Reaction, Severe, HEART MURMUR, 11/27) mometasone furoate (Unverified Adverse Reaction, Severe, HEART MURMUR, 11/27) prednisolone (Unverified Adverse Reaction, Severe, HEART MURMUR, 11/27/17) prednisone (Unverified Adverse Reaction, Severe, HEART MURMUR, 11/27/17) triamcinolone (Unverified Adverse Reaction, Severe, HEART MURMUR, 11/27/17) Uncoded Allergies: FENTYNAL (Allergy, Severe, RASH AND BLISTERS, 12/27/16) PER PATIENT Reported Meds & Prescriptions Reported Meds & Active Scripts Active Robaxin (Methocarbamol) 500 Mg Tab 500 Mg PO TID 3 Days Flomax (Tamsulosin HCl) 0.4 Mg Cap 0.4 Mg PO HS Meclizine (Meclizine HCl) 25 Mg Tab 25 Mg PO TID PRN Zofran Odt (Ondansetron Odt) 4 Mg Tab 4 Mg SL Q6HR PRN Meclizine 25 (Meclizine HCl) 25 Mg Tab 25 Mg PO Q6HR PRN Flomax (Tamsulosin HCl) 0.4 Mg Cap 0.4 Mg PO HS Ventolin Hfa 18 GM Inh (Albuterol Sulfate) 90 Mcg/Act Aer 2 Puff INH Q6H PRN Xanax (Alprazolam) 1 Mg Tab 1 Mg PO BID PRN Reported Percocet (Oxycodone-Acetaminophen) 10-325 mg Tab 1 Tab PO Q6H PRN Zenpep (Pancrelipase) 10,000-34,000-55,000 Units Cap 1 Cap PO TIDPC Metoprolol Tartrate 100 Mg Tab 100 Mg PO BID Amlodipine (Amlodipine Besylate) 5 Mg Tab 5 Mg PO BID Atrovent HFA 12.9 GM Inh (Ipratropium Gallagher) 17 Mcg/Act Aer 2 Puff INH TID Hydrochlorothiazide 25 Mg Tab 25 Mg PO DAILY Review of Systems Except as stated in HPI: all other systems reviewed are Neg Physical Exam Narrative GENERAL: Well-developed, well-nourished, poor hygiene SKIN: Focused skin assessment warm/dry. HEAD: Atraumatic. Normocephalic. EYES: Pupils equal and round. No scleral icterus. No injection or drainage. ENT: No nasal bleeding or discharge. Mucous membranes pink and moist. NECK: Trachea midline. No JVD. CARDIOVASCULAR: Regular rate and rhythm. No murmur appreciated. RESPIRATORY: No accessory muscle use. Clear to auscultation. Breath sounds equal bilaterally. GASTROINTESTINAL: Abdomen soft, non-tender, nondistended. Hepatic and splenic margins not palpable. MUSCULOSKELETAL: No obvious deformities. No clubbing. No cyanosis. No edema noted. Tenderness palpation to the left calf. Neurovascularly intact. NEUROLOGICAL: Awake and alert. No obvious cranial nerve deficits. Motor grossly within normal limits. Normal speech. PSYCHIATRIC: Appropriate mood and affect; insight and judgment normal. Data Data Last Documented VS Vital Signs Date Time Temp Pulse Resp B/P (MAP) Pulse Ox O2 Delivery O2 Flow Rate FiO2 12/15/17 15:45 12/15/17 15:45 77 17 96 Room Air 12/15/17 12:28 98.3 Orders Orders Us Leg Venous Doppler (12/15/17 ) Ed Discharge Order (12/15/17 15:38) [facility] Medical Decision Making Medical Screen Exam Complete: Yes Emergency Medical Condition: Yes Differential Diagnosis left calf DVT, muscle spasms, dehydration Narrative Course 62-year-old male presents emergency department for evaluation of left calf pain after being sent by his physician today. Patient states that Dr. Rollins at [facility] sent into the emergency department for evaluation of left calf pain. Says that he rode his bike yesterday approximately 4 miles, took a nap and woke up with pain in the left calf. Patient decided to hold off until his appointment today with his primary care physician. Says his pain is aching, constant, worse with palpation and movement. Denies numbness or tingling. mild to moderate in severity. Patient does have prostate cancer and sees Dr. Gauthier regularly for blood test and evaluation. In addition, patient states that he has a history of OR (8 months ago) requiring stents however has been unable to obtain these because he is unable to be placed on a blood thinner. Patient says that he is not on any blood thinners because of a "major GI surgery" by Dr. Saenz to who recommended no blood thinners. Patient also has a history of a lung transplant with Dr. Michael (4 years ago) and was advised to perform regular exercise to keep his "lungs expanded". Says that he has been riding his bike 4-5 miles a day without any issues. Denies fevers, chills, chest pain , shortness of breath. 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 Other medical history: Anemia, COPD, CAD, recurrent pancreatitis, GERD, hypertension, lung cancer status post lobectomy, prostate cancer, CVA, TIA Multiple attempts were made to place IV. After further discussion, decided to obtain US to r/o DVT prior to getting labs as the labs would be useful for DVT but other suspected conditions would not require labs. Last Impressions Lower Extremity Ultrasound 12/15/17 0000 Signed Impressions: Service Date/Time: Friday, December 15, 2017 13:24 - CONCLUSION: Normal examination. Les Smart MD Cancelled labs. Pt will receive robaxin for outpatient use. Suspect muscle spasms based off of H &P. Pt advised to follow up with his oncologist and primary care physician. Encourage adequate fluid intake and proper nutrition. Diagnosis Primary Impression: Muscle spasm Referrals: Kevin Larsen MD Primary Care Physician Additional Instructions: Use heat on your leg to reduce pain. Ensure adequate nutrition and fluid intake to reduce dehydration. Perform full range of motion exercises of your ankle, foot, and knee to reduce these muscle spasms. Scripts Methocarbamol (Robaxin) 500 Mg Tab 500 MG PO TID for Muscle Spasm for 3 Days, TAB 0 Refills Prov: Tony Lopez MD 12/15/17 Disposition: 01 DISCHARGE HOME Condition: Stable Paris Romero Dec 15, 2017 12:55
--- NOTE | 2017-12-15 13:54 | RADRPT ---
EXAM DATE/TIME: 12/15/2017 13:24 [facility] COMPARISON: No previous studies available for comparison. INDICATIONS : Left leg pain. MEDICAL HISTORY : Myocardial infarction. Congestive heart failure. Hypertension. Dizziness. Syncope. Coronary artery disease. Anticoagulant therapy. Chest pain. Asthma. Sleep apnea. Dyspnea. Ulcer. GERD. Hiatal hernia . Prostate cancer. Arthritis. Anxiety. Anemia. Radiation therapy. SURGICAL HISTORY : Cholecystectomy. Cardiac catheterization. Lung transplant. Lobectomy. Colon surgery. Left hip surg mae. Left rotator cuff surgery. ENCOUNTER: Initial ACUITY: 2 day PAIN SCORE: 6/10 LOCATION: Left leg. TECHNIQUE: Venous ultrasound of the leg was performed from the inguinal ligament to the proximal calf. Real-shannan e, color Doppler and spectral tracing, compression and augmentation techniques were used. FINDINGS: There is normal compressibility of the deep venous system from the inguinal region to the proximal ca lf. No echogenic clot is seen in the lumen of the common femoral, femoral, popliteal, and posterior tibial veins. There is a normal response of the venous system to proximal and distal augmentation an d respiration. CONCLUSION: Normal examination. Les Smart MD on December 15, 2017 at 13:51 Board Certified Radiologist. This report was verified electronically.
[2017-12-15] MEDS ORDERED: ROBA500T PO (15:38)
[2017-12-15 15:45] VITALS: BP 142/63; PULSE 77; RESP 17; O2SAT 96
--- NOTE | 2017-12-15 15:48 | PD ---
Data Data Last Documented VS Vital Signs Date Time Temp Pulse Resp B/P (MAP) Pulse Ox O2 Delivery O2 Flow Rate FiO2 12/15/17 12:28 98.3 93 16 131/74 (93) 98 Orders Orders Us Leg Venous Doppler (12/15/17 ) Ed Discharge Order (12/15/17 15:38) MDM Supervised Visit with HARPER: Yes Narrative Course I, Dr. Lopez, have reviewed the advance practice practitioner's documentation and am in agreement, met with the patient face to face, made the diagnosis, and the medical decision making was done by me. *My assessment and Findings: I evaluated this patient. He does have some left calf tenderness and some swelling. Ultrasound is negative for DVT. He should follow-up with his physician. Diagnosis Primary Impression: Pain of left calf Referrals: Kevin Larsen MD Primary Care Physician Additional Instruction: Use heat on your leg to reduce pain. Ensure adequate nutrition and fluid intake to reduce dehydration. Perform full range of motion exercises of your ankle, foot, and knee to reduce these muscle spasms. Scripts Methocarbamol (Robaxin) 500 Mg Tab 500 MG PO TID for Muscle Spasm for 3 Days, TAB 0 Refills Prov: Tony Lopez MD 12/15/17 Disposition: 01 DISCHARGE HOME Condition: Stable Tony Lopez MD Dec 15, 2017 15:48
== END 2017-12-15 15:53 | disposition home or self-care (01) ==
LOC: NEPC 12:22
DX: M79.662 Pain in left lower leg (principal); M62.838 Other muscle spasm; F17.210 Nicotine dependence, cigarettes, uncomplicated; I11.0 Hypertensive heart disease with heart failure; I50.9 Heart failure, unspecified; Z85.46 Personal history of malignant neoplasm of prostate; Z94.2 Lung transplant status
CPT/HCPCS: 93971; 99284

== ENCOUNTER 2018-02-25 11:20 | Observation (INO) ==
[2018-02-25] MEDS ORDERED: Sodium Chlor 0.9% Inj 500 ML IV.SIG ONE (11:48)
--- NOTE | 2018-02-25 12:03 | XR ---
EXAM DATE: 02/25/2018 12:01 PM EDT AGE/SEX: 63 years / Male INDICATIONS: Chest pain CLINICAL DATA: This is the patient's initial encounter. Patient reports that signs and symptoms have been present for 4 - 6 days and indicates a pain score of 4/10. MEDICAL/SURGICAL HISTORY: . Cardiovascular disease. Hypertension. Carcinoma, prostate.AsthmaSUR GICAL HISTORY : None None. COMPARISON: [facility] – [place], CHEST PA & LAT, 11/27/2017. . FINDINGS: A single AP view of the chest demonstrates the lungs to be symmetrically aerated without evidence of mass, infiltrate or effusion. The cardiomediastinal contours are unremarkable. Osseous structures a re intact. CONCLUSION: No acute cardiopulmonary disease Electronically signed by: Warren Machado MD 02/25/2018 12:01 PM EDT
--- NOTE | 2018-02-25 12:36 | ED ---
HPI General Chief complaint: Weakness Stated complaint: CA pt-possible medical reaction Time Seen by Provider: 02/25/18 11:34 Source: patient Mode of arrival: ambulatory Limitations: no limitations History of Present Illness HPI narrative: Patient is a 63-year-old male presenting to emergency department for evaluation of weakness and itching. He also reported chest pain that started at 7 AM this morning, it was left-sided with no radiation. Patient states it concerned him enough to attempt to take a baby aspirin which he is not to take due to his history of GI bleed. He denied any associated shortness of breath, diaphoresis, nausea, headache or dizziness. Patient states his legs felt weak however he was able to ride his bike approximately 5 miles this morning. Patient states that his pain management doctor switched him from Lortab to Percocet 1 month ago, he thinks he is itching because of the change in his pain medication. Patient states he has been working on his roof replacing it for the last several days, he reports that he has had adequate fluid intake. Related Data Allergies Allergy/AdvReac Type Severity Reaction Status Date / Time ciprofloxacin Allergy Severe RASH, Verified 02/25/18 15:02 SWOLLEN FACE codeine Allergy Severe sob Verified 02/25/18 15:02 diclofenac Allergy Severe Anaphylaxis Verified 02/25/18 15:02 doxazosin Allergy Severe SOB,CHEST Verified 02/25/18 15:02 PAIN etodolac Allergy Severe Vomiting Verified 02/25/18 15:02 famotidine Allergy Severe MADE HIM Verified 02/25/18 15:02 SUICIDAL flurbiprofen Allergy Severe Vomiting Verified 02/25/18 15:02 ibuprofen Allergy Severe Vomiting Verified 02/25/18 15:02 indomethacin Allergy Severe Vomiting Verified 02/25/18 15:02 ketoprofen Allergy Severe Nausea Verified 02/25/18 15:02 ketorolac Allergy Severe Vomiting Verified 02/25/18 15:02 loperamide Allergy Severe rash Verified 02/25/18 15:02 naproxen Allergy Severe Vomiting Verified 02/25/18 15:02 oxaprozin Allergy Severe Vomiting Verified 02/25/18 15:02 pantoprazole Allergy Severe MADE HIM Verified 02/25/18 15:09 SUICIDAL spironolactone Allergy Severe Bleeding Verified 02/25/18 15:09 fentanyl Allergy Intermediate rash Verified 02/25/18 15:09 morphine Allergy Intermediate Rash Verified 02/25/18 15:09 amcinonide AdvReac Severe HEART Verified 02/25/18 15:09 MURMUR beclomethasone AdvReac Severe HEART Verified 02/25/18 15:09 MURMUR betamethasone AdvReac Severe HEART Verified 02/25/18 15:09 MURMUR desoximetasone AdvReac Severe HEART Verified 02/25/18 15:09 MURMUR dexamethasone AdvReac Severe HEART Verified 02/25/18 15:09 MURMUR diatrizoate meglumine AdvReac Severe BLISTERS Verified 02/25/18 15:09 AND EDEMA AT SITE fludrocortisone AdvReac Severe HEART Verified 02/25/18 15:09 MURMUR flunisolide AdvReac Severe HEART Verified 02/25/18 15:09 MURMUR fluocinolone acetonide AdvReac Severe HEART Verified 02/25/18 15:09 MURMUR fluocinonide AdvReac Severe HEART Verified 02/25/18 15:09 MURMUR fluorometholone AdvReac Severe HEART Verified 02/25/18 15:09 MURMUR flurandrenolide AdvReac Severe HEART Verified 02/25/18 15:09 MURMUR fluticasone AdvReac Severe HEART Verified 02/25/18 15:09 MURMUR fluticasone furoate AdvReac Severe HEART Verified 02/25/18 15:09 MURMUR gadobenic acid AdvReac Severe BLISTERS Verified 02/25/18 15:09 AND EDEMA AT SITE gadodiamide AdvReac Severe BLISTERS Verified 02/25/18 15:09 AND EDEMA AT SITE gadoteridol AdvReac Severe BLISTERS Verified 02/25/18 15:09 AND EDEMA AT SITE hydrocortisone AdvReac Severe HEART Verified 02/25/18 15:09 MURMUR iodixanol AdvReac Severe BLISTERS Verified 02/25/18 15:09 AND EDEMA AT SITE iohexol AdvReac Severe BLISTERS Verified 02/25/18 15:09 AND EDEMA AT SITE methylprednisolone AdvReac Severe HEART Verified 02/25/18 15:09 MURMUR mometasone furoate AdvReac Severe HEART Verified 02/25/18 15:09 MURMUR prednisolone AdvReac Severe HEART Verified 02/25/18 15:09 MURMUR prednisone AdvReac Severe HEART Verified 02/25/18 15:09 MURMUR triamcinolone AdvReac Severe HEART Verified 02/25/18 15:09 MURMUR FENTYNAL Allergy Severe RASH AND Uncoded 02/25/18 15:09 BLISTERS MRI PRECAUTION AdvReac Severe SHRAPNEL Uncoded 02/25/18 15:09 IN C-SPINE per Dr. Smart 10/26/04 Review of Systems Except as stated in HPI: all other systems reviewed are negative Constitutional Reports system reviewed and no additional complaints, except as docu Cardiovascular Reports chest pain, Reports chest pain at rest, Reports chest pain with activity , Denies diaphoresis, Denies syncope, Denies edema, Denies lightheadedness, Denies radiating jaw, neck or arm pain and Denies dyspnea Respiratory Reports system reviewed and no additional complaints, except as docu Gastrointestinal Reports system reviewed and no additional complaints, except as docu Genitourinary Reports system reviewed and no additional complaints, except as docu Musculoskeletal Reports system reviewed and no additional complaints, except as docu and Reports muscle weakness Integumentary/Breasts Reports system reviewed and no additional complaints, except as docu Neurologic Reports system reviewed and no additional complaints, except as docu Psychiatric Reports system reviewed and no additional complaints, except as docu Allergic/Immunologic Reports urticaria PMFSH Medical History Medical History Anxiety (Chronic) COPD (chronic obstructive pulmonary disease) (Chronic) GERD (gastroesophageal reflux disease) (Chronic) Hypertension (Chronic) Osteoarthritis (Chronic) Prostate cancer (Chronic) Stroke (Chronic) AMI (acute myocardial infarction) (Resolved) Surgical History Surgical History H/O colonoscopy (Resolved) History of cholecystectomy (Resolved) History of esophagogastroduodenoscopy (EGD) (Resolved) S/P lobectomy of lung (Resolved) Social History Social History Substance History: No History of Abuse Second Hand Smoke Exposure: No Smoking Status: Current every day smoker Tobacco Type: Cigarettes How Often Do You Have a Drink Containing Alcohol: Never Immunization History Tetanus Immunization: <5 Years Hx Influenza Vaccine This Season: Yes Exam Narrative Exam Narrative: GENERAL: Well-developed, well-nourished, well-appearing male. Presenting in no acute distress. SKIN: Focused skin assessment warm/dry. HEAD: Atraumatic. Normocephalic. EYES: Pupils equal and round. No scleral icterus. No injection or drainage. ENT: No nasal bleeding or discharge. Mucous membranes pink and moist. NECK: Trachea midline. No JVD. CARDIOVASCULAR: Regular rate and rhythm. No murmur appreciated. RESPIRATORY: No accessory muscle use. Clear to auscultation. Breath sounds equal bilaterally. GASTROINTESTINAL: Abdomen soft, non-tender, nondistended. Hepatic and splenic margins not palpable., No rebound, no guarding. MUSCULOSKELETAL: No obvious deformities. No clubbing. No cyanosis. No edema. NEUROLOGICAL: Awake and alert. No obvious cranial nerve deficits. Motor grossly within normal limits. Normal speech. PSYCHIATRIC: Appropriate mood and affect; insight and judgment normal. Course Initial Documented Vital Signs Temperature 98.1 F 02/25/18 11:27 Pulse Rate 78 02/25/18 11:27 Respiratory Rate 19 02/25/18 11:27 Blood Pressure 138/73 02/25/18 11:27 Pulse Oximetry 100 02/25/18 11:27 Last Documented Vital Signs Temperature 98.1 F 02/25/18 11:27 Pulse Rate 65 02/25/18 15:00 Respiratory Rate 18 02/25/18 15:00 Blood Pressure 141/86 H 02/25/18 15:00 Pulse Oximetry 98 02/25/18 15:00 Medical Decision Making MDM Narrative Medical decision making narrative: Patient is a 63-year-old male that presented to the emergency department for evaluation of itching, weakness chest pain. Labs and imaging ordered and pending. Patient was placed on telemetry to monitor continuous pulse oximetry. IV access was established. Labs reviewed, no acute findings identified. Due to patient's medical history and presenting complaint he will be placed in chest pain center for further evaluation. Patient is agreeable. Plan of care discussed with my attending physician. Differential Diagnosis Differential Diagnosis: Metabolic abnormality versus ACS versus [place] versus [place] versus other Medical Records Medical records reviewed: Yes I reviewed the patient's medical records. Lab Data Lab results reviewed: Yes I reviewed the patient's lab results. Result diagrams: 02/25/18 14:51 02/25/18 14:51 Lab Results 02/25/18 02/25/18 02/25/18 Range/Units 12:50 12:55 12:58 WBC (4.0-11.0) th/mm3 RBC (4.50-5.90) mil/mm3 Hgb (13.0-17.0) gm/dL Hct (39.0-51.0) % MCV (80.0-100.0) fL MCH (27.0-34.0) pg MCHC (32.0-36.0) % RDW (11.6-17.2) % Plt Count (150-450) th/mm3 MPV (7.0-11.0) fL Neut % (Auto) (16.0-70.0) % Lymph % (Auto) (9.0-44.0) % [place] % (Auto) (0.0-8.0) % Eos % (Auto) (0.0-4.0) % Baso % (Auto) (0.0-2.0) % Neut # (Auto) (1.8-7.7) th/mm3 Lymph # (Auto) (1.0-4.8) th/mm3 [place] # (Auto) (0.0-0.9) th/mm3 Eos # (Auto) (0.0-0.4) th/mm3 Baso # (Auto) (0.0-0.2) th/mm3 WBC Differential Differential Comment PT (9.8-11.6) sec INR Ratio APTT (24.3-30.1) sec Sodium (136-145) meq/L Potassium (3.5-5.1) meq/L Chloride (98-107) meq/L Carbon Dioxide (21.0-32.0) meq/L Anion Gap (5-15) meq/L BUN (7-18) mg/dL Creatinine (0.60-1.30) mg/dL Estimated GFR (>89) mL/min POC Glucose 99 (68-110) mg/dl Random Glucose (74-106) mg/dL Calcium (8.5-10.1) mg/dL Magnesium Cancelled Total Bilirubin (0.2-1.0) mg/dL AST (15-37) U/L ALT (12-78) U/L Alkaline Phosphatase (45-117) U/L Total Creatine Kinase Cancelled CK-MB (CK-2) (0.5-3.6) ng/mL Troponin I Cancelled Total Protein (6.4-8.2) g/dL Albumin (3.4-5.0) g/dL Lipase Cancelled Urine Color Straw (Yellw/Straw) Urine Clarity Clear (Clear) Urine pH 5.0 (5.0-8.5) Ur Specific [place] 1.003 (1.002-1.035) Urine Protein Negative (Neg-Trace) mg/dL Urine Glucose (UA) Negative (Negative) mg/dL Urine Ketones Negative (Negative) mg/dL Urine Occult Blood Negative (Negative) Urine Nitrate Negative (Negative) Urine Bilirubin Negative (Negative) Urine Urobilinogen Less than 2 (Less than 2) mg/dL Ur Leukocyte Esterase Negative (Negative) Urine RBC Less than 1 (0-3) /hpf Urine Mucus Few H (Occasional) /lpf Micro UA Comment Culture not ind Urine Culture Comments Culture not ind 02/25/18 02/25/18 02/25/18 Range/Units 14:51 14:51 14:51 WBC 5.8 (4.0-11.0) th/mm3 RBC 4.45 L (4.50-5.90) mil/mm3 Hgb 13.1 (13.0-17.0) gm/dL Hct 40.5 (39.0-51.0) % MCV 90.9 (80.0-100.0) fL MCH 29.4 (27.0-34.0) pg MCHC 32.3 (32.0-36.0) % RDW 13.5 (11.6-17.2) % Plt Count 281 (150-450) th/mm3 MPV 7.3 (7.0-11.0) fL Neut % (Auto) 63.2 (16.0-70.0) % Lymph % (Auto) 26.8 (9.0-44.0) % [place] % (Auto) 5.6 (0.0-8.0) % Eos % (Auto) 3.4 (0.0-4.0) % Baso % (Auto) 1.0 (0.0-2.0) % Neut # (Auto) 3.7 (1.8-7.7) th/mm3 Lymph # (Auto) 1.6 (1.0-4.8) th/mm3 [place] # (Auto) 0.3 (0.0-0.9) th/mm3 Eos # (Auto) 0.2 (0.0-0.4) th/mm3 Baso # (Auto) 0.1 (0.0-0.2) th/mm3 WBC Differential . Differential Comment Auto diff final PT 10.7 (9.8-11.6) sec INR 1.1 Ratio APTT 26.6 (24.3-30.1) sec Sodium 142 (136-145) meq/L Potassium 4.1 (3.5-5.1) meq/L Chloride 110 H (98-107) meq/L Carbon Dioxide 22.7 (21.0-32.0) meq/L Anion Gap 9 (5-15) meq/L BUN 10 (7-18) mg/dL Creatinine 0.83 (0.60-1.30) mg/dL Estimated GFR Greater than 89 (>89) mL/min POC Glucose (68-110) mg/dl Random Glucose 98 (74-106) mg/dL Calcium 8.8 (8.5-10.1) mg/dL Magnesium 2.1 Total Bilirubin 0.5 (0.2-1.0) mg/dL AST 15 (15-37) U/L ALT 22 (12-78) U/L Alkaline Phosphatase 77 (45-117) U/L Total Creatine Kinase 146 CK-MB (CK-2) 2.7 (0.5-3.6) ng/mL Troponin I Less than 0.02 L Total Protein 6.7 (6.4-8.2) g/dL Albumin 3.6 (3.4-5.0) g/dL Lipase 73 Urine Color (Yellw/Straw) Urine Clarity (Clear) Urine pH (5.0-8.5) Ur Specific [place] (1.002-1.035) Urine Protein (Neg-Trace) mg/dL Urine Glucose (UA) (Negative) mg/dL Urine Ketones (Negative) mg/dL Urine Occult Blood (Negative) Urine Nitrate (Negative) Urine Bilirubin (Negative) Urine Urobilinogen (Less than 2) mg/dL Ur Leukocyte Esterase (Negative) Urine RBC (0-3) /hpf Urine Mucus (Occasional) /lpf Micro UA Comment Urine Culture Comments Imaging Data Radiologist's impression: ITS Impressions Chest X-Ray 02/25/18 11:48 CONCLUSION: No acute cardiopulmonary disease Radiologist report reviewed. Discharge Plan Discharge Disposition Patient Disposition: 30 Still Patient Discharge Condition Condition: Stable Discharge Details Discharge Problem: Chest pain Physicians Team ED Provider: Elana Perla ED Midlevel Provider: Amy Weber Primary Care Provider: Jose Raul Rollins Attending Provider: Lev Elmore Status ED Status: Admitted Observation Patient
[2018-02-25 13:36] LABS: Bilirubin,Urine Negative (Negative); Clarity,Urine Clear (Clear); Color,Urine Straw (Yellw/Straw); Glucose,Urine (UA) Negative (Negative); Leukocyte Esterase,Urine Negative (Negative); Mucus,Urine Few /lpf (Occasional); Nitrite,Urine Negative (Negative); Specific Gravity,Urine 1.003 (1.002-1.035)
[2018-02-25 15:03] LABS: Baso # (Auto) 0.1 th/mm3 (0.0-0.2); Eos # (Auto) 0.2 th/mm3 (0.0-0.4); Eos % (Auto) 3.4 % (0.0-4.0); Hematocrit 40.5 % (39.0-51.0); Hemoglobin 13.1 gm/dL (13.0-17.0); Lymph # (Auto) 1.6 th/mm3 (1.0-4.8); Lymph % (Auto) 26.8 % (9.0-44.0); Mean Corpuscular HGB Conc 32.3 % (32.0-36.0); Mean Corpuscular Hemoglobin 29.4 pg (27.0-34.0); Mean Corpuscular Volume 90.9 fL (80.0-100.0); Mean Platelet Volume 7.3 fL (7.0-11.0); Mono # (Auto) 0.3 th/mm3 (0.0-0.9); Mono % (Auto) 5.6 % (0.0-8.0); Neut # (Auto) 3.7 th/mm3 (1.8-7.7); Neut % (Auto) 63.2 % (16.0-70.0); Platelet Count 281 th/mm3 (150-450); Red Blood Count 4.45 mil/mm3 (4.50-5.90); Red Cell Distribution Width 13.5 % (11.6-17.2); White Blood Count 5.8 th/mm3 (4.0-11.0)
[2018-02-25 15:17] LABS: Albumin 3.6 g/dL (3.4-5.0); Anion Gap 9 meq/L (5-15); Aspartate Aminotransferase 15 U/L (15-37); Blood Urea Nitrogen 10 mg/dL (7-18); Calcium 8.8 mg/dL (8.5-10.1); Carbon Dioxide 22.7 meq/L (21.0-32.0); Chloride 110 meq/L (98-107); Glomerular Filtration Rate Greater Than 89 mL/min (>89); Glucose,Random 98 mg/dL (74-106); Lipase 73 U/L (73-393); Magnesium 2.1 mg/dL (1.5-2.5); Potassium 4.1 meq/L (3.5-5.1); Sodium 142 meq/L (136-145)
[2018-02-25 15:19] LABS: Activated Partial Thrombo Time 26.6 sec (24.3-30.1); INR 1.1 Ratio; Prothrombin Time 10.7 sec (9.8-11.6)
[2018-02-25 15:22] LABS: Alanine Aminotransferase 22 U/L (12-78); Alkaline Phosphatase 77 U/L (45-117); Creatine Kinase 146 U/L (39-308); Total Protein 6.7 g/dL (6.4-8.2)
[2018-02-25 15:34] LABS: Creatine Kinase MB 2.7 ng/mL (0.5-3.6)
[2018-02-25] MEDS ORDERED: Temazepam 15 MG Capsule PO PRN (17:06)
[2018-02-25] MEDS ORDERED: Acetaminophen 500 MG Tablet PO PRN (17:09)
--- NOTE | 2018-02-25 17:21 | P.HPCA ---
History of Present Illness Primary Care Physician: Jose Raul Rollins MD Chief Complaint: Chest pain History of Present Illness: This is a 63-year-old male with history of hypertension, CAD, COPD, chronic pancreatitis, GI bleed, anemia, GERD, BPH, prostate cancer, and tobacco abuse that presents to ED via riding his bicycle with complaint of chest discomfort. Patient states he woke up 4:00 this morning and had a chest discomfort he describes as a heaviness in the left side of his chest. No associated shortness of breath, nausea, or diaphoresis. Lasted about 15 minutes and then went back to sleep. He woke back up about 7:00 this morning with a similar discomfort lasting about an hour and a half. No associated shortness of breath , nausea, diaphoresis. He felt weak about the same time and decided that maybe he should go for bike ride thinking that it may wake him up better. States he rode for about 2 miles but was still feeling weak but the discomfort did not worsen. At that point he decided he should come to the hospital. He has had numerous nuclear stress tests most recently February 2017 that was abnormal and was seen by health systems analyst and medical management was utilized. States he follows up with a health systems analyst but cannot recall the name of the health systems analyst. States he had a heart catheterization. Last cardiac catheterization this facility was May 2007 which revealed a 50% ostial circumflex marginal disease and 50% distal circumflex disease. Currently denies chest discomfort and is requesting something to eat. States even at nursing home they give a peanut butter and jelly sandwich. Patient continues to smoke cigarettes but states his only smoked 2 cigarettes a day for 10-12 years. Denies alcohol or illicit drug use. States that there is family history of heart disease but cannot recall specifics. - Diagnosis (1) Chest pain (2) Hypertension (3) CAD (coronary artery disease) (4) COPD (chronic obstructive pulmonary disease) (5) Tobacco abuse (6) GERD (gastroesophageal reflux disease) (7) Anemia (8) Prostate cancer Inpatient Certification: I certify that the inpatient services were ordered in accordance with Medicare regulations governing the order. This includes certification that hospital inpatient services are reasonable and necessary and in the case of services not specified as inpatient-only under 42 CFR 419.22(n), that they are appropriately provided as inpatient services in accordance to with the 2-midnight benchmark under 43 CFR 412.3(e) Review of Systems General: Patient denies fevers, chills, and recent travel. HEENT: Patient denies headache, sore throat, difficulty swallowing. Cardiovascular: Has the chest discomfort as mentioned above. Denies sensation of heart beating rapidly or irregularly. No syncope. Denies diaphoresis. Respiratory: Denies shortness of breath or inspirational chest discomfort. Denies coughing wheezing or hemoptysis. GI: Patient denies nausea, vomiting, diarrhea, abdominal pain, bloody stools. Musculoskeletal: Patient denies joint pain or edema. Denies calf pain or edema. Neurovascular: Complained of generalized weakness but no vocalize areas of weakness. Patient denies numbness, tingling, weakness in extremities. Denies headache. Endocrine: Denies polyuria and polydipsia. Hematologic: Denies easy bruising. Skin: Denies rash or itching. PMFSH - History History Provided By: Patient - Medical History Medical History: Medical History (Last Reviewed 02/25/18 @ 12:43 by CRESENCIO Perez) Anxiety COPD (chronic obstructive pulmonary disease) GERD (gastroesophageal reflux disease) Hypertension Osteoarthritis Prostate cancer Stroke AMI (acute myocardial infarction) - Surgical History Surgical History: Surgical History (Last Reviewed 02/25/18 @ 12:43 by CRESENCIO Perez) H/O colonoscopy History of cholecystectomy History of esophagogastroduodenoscopy (EGD) S/P lobectomy of lung - Tobacco History Second Hand Smoke Exposure: No Tobacco Use In Past 30 Days: Yes Smoking Status: Current every day smoker Tobacco Type: Cigarettes - Alcohol History How Often Do You Have a Drink Containing Alcohol: Never - Substance Use History Substance History: No History of Abuse - Immunization History Tetanus Immunization: <5 Years Hx Influenza Vaccine This Season: Yes Medications and Allergies Active Medications: Active Medications Acetaminophen (Tylenol) 500 mg PO Q6H PRN PRN Reason: pain scale 1-5 Hydrocodone Bitart/Acetaminophen ([place] 7.5/325) 1 tab PO Q6H PRN PRN Reason: pain scale 6-10 Albuterol (Duoneb Neb (Prn)) 1 ampul NEB Q4HR NEB PRN PRN Reason: SHORTNESS OF BREATH/WHEEZING Clonidine HCl (Catapres) 0.1 mg PO Q6H PRN PRN Reason: SBP >165 OR DBP > 110 Ondansetron HCl (Zofran Inj) 4 mg IV.PUSH Q6H PRN PRN Reason: NAUSEA Pantoprazole Sodium (Protonix) 40 mg PO DAILY TIFFANY Sodium Chloride (Ns Flush) 2 ml IV.FLUSH UNSCH PRN PRN Reason: FLUSH AFTER USING IV ACCESS Last Admin: 02/25/18 15:10 Dose: 2 ml Sodium Chloride (Ns Flush) 2 ml IV.FLUSH BID TIFFANY Sodium Chloride (Ns Flush) 2 ml IV.FLUSH PRN PRN PRN Reason: FLUSH AFTER USING IV ACCESS Temazepam (Restoril) 15 mg PO HS PRN PRN Reason: INSOMNIA Allergies Allergy/AdvReac Type Severity Reaction Status Date / Time ciprofloxacin Allergy Severe RASH, Verified 02/25/18 15:02 SWOLLEN FACE codeine Allergy Severe sob Verified 02/25/18 15:02 diclofenac Allergy Severe Anaphylaxis Verified 02/25/18 15:02 doxazosin Allergy Severe SOB,CHEST Verified 02/25/18 15:02 PAIN etodolac Allergy Severe Vomiting Verified 02/25/18 15:02 famotidine Allergy Severe MADE HIM Verified 02/25/18 15:02 SUICIDAL flurbiprofen Allergy Severe Vomiting Verified 02/25/18 15:02 ibuprofen Allergy Severe Vomiting Verified 02/25/18 15:02 indomethacin Allergy Severe Vomiting Verified 02/25/18 15:02 ketoprofen Allergy Severe Nausea Verified 02/25/18 15:02 ketorolac Allergy Severe Vomiting Verified 02/25/18 15:02 loperamide Allergy Severe rash Verified 02/25/18 15:02 naproxen Allergy Severe Vomiting Verified 02/25/18 15:02 oxaprozin Allergy Severe Vomiting Verified 02/25/18 15:02 pantoprazole Allergy Severe MADE HIM Verified 02/25/18 15:09 SUICIDAL spironolactone Allergy Severe Bleeding Verified 02/25/18 15:09 fentanyl Allergy Intermediate rash Verified 02/25/18 15:09 morphine Allergy Intermediate Rash Verified 02/25/18 15:09 amcinonide AdvReac Severe HEART Verified 02/25/18 15:09 MURMUR beclomethasone AdvReac Severe HEART Verified 02/25/18 15:09 MURMUR betamethasone AdvReac Severe HEART Verified 02/25/18 15:09 MURMUR desoximetasone AdvReac Severe HEART Verified 02/25/18 15:09 MURMUR dexamethasone AdvReac Severe HEART Verified 02/25/18 15:09 MURMUR diatrizoate meglumine AdvReac Severe BLISTERS Verified 02/25/18 15:09 AND EDEMA AT SITE fludrocortisone AdvReac Severe HEART Verified 02/25/18 15:09 MURMUR flunisolide AdvReac Severe HEART Verified 02/25/18 15:09 MURMUR fluocinolone acetonide AdvReac Severe HEART Verified 02/25/18 15:09 MURMUR fluocinonide AdvReac Severe HEART Verified 02/25/18 15:09 MURMUR fluorometholone AdvReac Severe HEART Verified 02/25/18 15:09 MURMUR flurandrenolide AdvReac Severe HEART Verified 02/25/18 15:09 MURMUR fluticasone AdvReac Severe HEART Verified 02/25/18 15:09 MURMUR fluticasone furoate AdvReac Severe HEART Verified 02/25/18 15:09 MURMUR gadobenic acid AdvReac Severe BLISTERS Verified 02/25/18 15:09 AND EDEMA AT SITE gadodiamide AdvReac Severe BLISTERS Verified 02/25/18 15:09 AND EDEMA AT SITE gadoteridol AdvReac Severe BLISTERS Verified 02/25/18 15:09 AND EDEMA AT SITE hydrocortisone AdvReac Severe HEART Verified 02/25/18 15:09 MURMUR iodixanol AdvReac Severe BLISTERS Verified 02/25/18 15:09 AND EDEMA AT SITE iohexol AdvReac Severe BLISTERS Verified 02/25/18 15:09 AND EDEMA AT SITE methylprednisolone AdvReac Severe HEART Verified 02/25/18 15:09 MURMUR mometasone furoate AdvReac Severe HEART Verified 02/25/18 15:09 MURMUR prednisolone AdvReac Severe HEART Verified 02/25/18 15:09 MURMUR prednisone AdvReac Severe HEART Verified 02/25/18 15:09 MURMUR triamcinolone AdvReac Severe HEART Verified 02/25/18 15:09 MURMUR FENTYNAL Allergy Severe RASH AND Uncoded 02/25/18 15:09 BLISTERS MRI PRECAUTION AdvReac Severe SHRAPNEL Uncoded 02/25/18 15:09 IN C-SPINE per Dr. Smart 10/26/04 Home Medications Medication Instructions Recorded Confirmed Type albuterol sulfate [Proventil HFA] 2 puff INHALATION Q6H PRN 02/25/18 02/25/18 History amlodipine [Norvasc] 5 mg PO BID 02/25/18 02/25/18 History hydrochlorothiazide 25 mg PO DAILY 02/25/18 02/25/18 History ipratropium bromide [Atrovent HFA] 2 puff INHALATION QID 02/25/18 02/25/18 History metoprolol tartrate 50 mg PO BID 02/25/18 02/25/18 History potassium chloride 20 meq PO DAILY 02/25/18 02/25/18 History Exam Vital signs: Vital Signs 02/25/18 11:27 02/25/18 12:00 02/25/18 13:00 Temperature 98.1 F Pulse Rate 78 70 64 Respiratory Rate 19 20 18 Blood Pressure 138/73 131/70 136/75 Pulse Oximetry 100 99 99 02/25/18 13:08 02/25/18 14:00 02/25/18 15:00 Temperature Pulse Rate 64 68 65 Respiratory Rate 18 20 18 Blood Pressure 136/75 136/71 141/86 H Pulse Oximetry 98 98 98 Intake & Output 02/24/18 02/25/18 02/25/18 18:59 06:59 18:59 Weight 72.575 kg Narrative: GENERAL: This is a well-nourished, well-developed patient, in no apparent distress. Patient speaks in clear complete sentences. Patient is pleasant. HEENT: Head is atraumatic and normocephalic. Neck is supple without lymphadenopathy and trachea is midline. No JVD or carotid bruits. CARDIOVASCULAR: Regular rate and rhythm without murmurs, gallops, or rubs. RESPIRATORY: Clear to auscultation. Breath sounds equal bilaterally. No wheezes , rales, or rhonchi. Chest wall is nontender. No use of accessory muscles. GASTROINTESTINAL: Abdomen is nontender, nondistended. Abdomen soft. No obvious pulsatile mass or bruit. No CVA tenderness. Strong femoral pulses bilaterally. Normal bowel sounds in all quadrants. MUSCULOSKELETAL: Patient is moving upper and lower extremities freely. No calf tenderness or edema, no Homans sign. Strong pulses in upper and lower extremities. NEUROLOGICAL: Patient is alert and oriented. Cranial nerves 2-12 are grossly intact. No focal deficits and speech is clear. SKIN: No rash and turgor is normal. Results 02/25/18 14:51 02/25/18 14:51 Cardiac Enzymes 02/25/18 02/25/18 Range/Units 12:58 14:51 AST 15 (15-37) U/L CK-MB (CK-2) 2.7 (0.5-3.6) ng/mL Troponin I Cancelled Less than 0.02 L Coagulation 02/25/18 Range/Units 14:51 PT 10.7 (9.8-11.6) sec APTT 26.6 (24.3-30.1) sec CBC 02/25/18 Range/Units 14:51 WBC 5.8 (4.0-11.0) th/mm3 RBC 4.45 L (4.50-5.90) mil/mm3 Hgb 13.1 (13.0-17.0) gm/dL Hct 40.5 (39.0-51.0) % Plt Count 281 (150-450) th/mm3 Neut # (Auto) 3.7 (1.8-7.7) th/mm3 Lymph # (Auto) 1.6 (1.0-4.8) th/mm3 [place] # (Auto) 0.3 (0.0-0.9) th/mm3 Eos # (Auto) 0.2 (0.0-0.4) th/mm3 Baso # (Auto) 0.1 (0.0-0.2) th/mm3 Comprehensive Metabolic Panel 02/25/18 Range/Units 14:51 Sodium 142 (136-145) meq/L Potassium 4.1 (3.5-5.1) meq/L Chloride 110 H (98-107) meq/L Carbon Dioxide 22.7 (21.0-32.0) meq/L BUN 10 (7-18) mg/dL Creatinine 0.83 (0.60-1.30) mg/dL Calcium 8.8 (8.5-10.1) mg/dL AST 15 (15-37) U/L ALT 22 (12-78) U/L Alkaline Phosphatase 77 (45-117) U/L Total Protein 6.7 (6.4-8.2) g/dL Albumin 3.6 (3.4-5.0) g/dL Intake and Output 02/25/1818 18 06:59 14:59 22:59 Other: Weight 72.575 kg Patient Weight 02/26/18 06:59 Weight 72.575 kg EKG interpretations - EKG EKG shows: sinus rhythm (Initial EKG is sinus rhythm without significant ST segment depressions or elevations.) Caprini VTE Risk Assessment Caprini VTE Risk Assessment: Moderate/High Risk (score >= 2) Caprini Risk Assessment Model: Point Value = 1 Point Value = 2 Point Value = 3 Point Value = 5 Age 41-60 Minor surgery BMI > 25 kg/m2 Swollen legs Varicose veins or History of unexplained or recurrent spontaneous Oral contraceptives or hormone replacement Sepsis (< 1 month) Serious lung disease, including pneumonia (< 1 month) Abnormal pulmonary function Acute myocardial infarction Congestive heart failure (< 1 month) History of inflammatory bowel disease Medical patient at bed rest Age 61-74 Arthroscopic surgery Major open surgery (> 45 min) Laparoscopic surgery (> 45 min) Malignancy Confined to bed (> 72 hours) Immobilizing plaster cast Central venous access Age >= 75 History of VTE Family history of VTE Factor V Leiden Prothrombin [id number] Lupus anticoagulant Anticardiolipin antibodies Elevated serum homocysteine Heparin-induced thrombocytopenia Other congenital or acquired thrombophilia Stroke (< 1 month) Elective arthroplasty Hip, pelvis, or leg fracture Acute spinal cord injury (< 1 month) Prophylaxis Regimen: Total Risk Factor Score Risk Level Prophylaxis Regimen 0-1 Low Early ambulation 2 Moderate Order ONE of the following: *Sequential Compression Device (SCD) *Heparin 5000 units SQ BID 3-4 Higher Order ONE of the following medications: *Heparin 5000 units SQ TID *Enoxaparin/Lovenox 40 mg SQ daily (WT < 150 kg, CrCl > 30 mL/min) *Enoxaparin/Lovenox 30 mg SQ daily (WT < 150 kg, CrCl > 10-29 mL/min) *Enoxaparin/Lovenox 30 mg SQ BID (WT < 150 kg, CrCl > 30 mL/min) AND/OR *Sequential Compression Device (SCD) 5 or more Highest Order ONE of the following medications: *Heparin 5000 units SQ TID (Preferred with Epidurals) *Enoxaparin/Lovenox 40 mg SQ daily (WT < 150 kg, CrCl > 30 mL/min) *Enoxaparin/Lovenox 30 mg SQ daily (WT < 150 kg, CrCl > 10-29 mL/min) *Enoxaparin/Lovenox 30 mg SQ BID (WT < 150 kg, CrCl > 30 mL/min) AND *Sequential Compression Device (SCD) Assessment and Plan - Assessment (1) Chest pain Code(s): R07.9 - Chest pain, unspecified Status: Acute (2) Hypertension Code(s): I10 - Essential (primary) hypertension Status: Acute (3) CAD (coronary artery disease) Code(s): I25.10 - Atherosclerotic heart disease of [place] coronary artery without angina pectoris Status: Acute (4) COPD (chronic obstructive pulmonary disease) Code(s): J44.9 - Chronic obstructive pulmonary disease, unspecified Status: Acute (5) Tobacco abuse Code(s): Z72.0 - Tobacco use Status: Acute (6) GERD (gastroesophageal reflux disease) Code(s): K21.9 - Gastro-esophageal reflux disease without esophagitis Status: Acute (7) Anemia Code(s): D64.9 - Anemia, unspecified Status: Acute (8) Prostate cancer Code(s): C61 - Malignant neoplasm of prostate Status: Acute - Plan * Chest pain: Patient will continue to have serial cardiac enzymes and EKGs for ruling out purposes. He will be seen by Dr. Nazario Hernandez of cardiology in the chest pain center in the morning. Patient likely have a Lexiscan if he rules out. Patient will likely be discharged home if the stress test is nonischemic with instructions to follow-up with PCP and health systems analyst. Return to ED for interval issues. Patient states he cannot take aspirin or other NSAIDs secondary to history of GI bleed. Has requested Lortab for pain. * Hypertension: Continue medication. * COPD: Have DuoNeb's as needed. Needs to quit smoking. * Tobacco abuse: Patient counseled on the importance of smoking cessation. * CAD: This will be reassessed with stress testing. Patient will need to follow -up with health systems analyst. Patient is stable at this time. He is agreeable to this plan. (1) Chest pain Qualifiers: Chest pain type: unspecified Qualified Code(s): R07.9 - Chest pain, unspecified
[2018-02-25 18:44] LABS: Creatine Kinase 137 U/L (39-308)
[2018-02-25] MEDS: Metoprolol Tartrate 50 MG Tablet PO SCH (20:29)
[2018-02-25] MEDS: amLODIPine 5 MG Tablet PO SCH (20:29)
[2018-02-25 21:47] LABS: Creatine Kinase 135 U/L (39-308)
[2018-02-26] MEDS ORDERED: hydroCHLOROthiazide 25 MG Tablet PO SCH (09:00)
[2018-02-26] MEDS ORDERED: Regadenoson Inj 0.4 MG/5 ML Syringe IV.PUSH ONE (09:35)
[2018-02-26] MEDS: amLODIPine 5 MG Tablet PO SCH (10:40)
[2018-02-26] MEDS: Metoprolol Tartrate 50 MG Tablet PO SCH (10:41)
--- NOTE | 2018-02-26 10:57 | NM ---
EXAM DATE: 02/26/2018 10:39 AM EDT AGE/SEX: 63 years / Male INDICATIONS:Angina. . Mid chest pain for one day. CLINICAL DATA: This is the patient's initial encounter. Patient reports that signs and symptoms have been present for 1 day and indicates a pain score of 6/10. MEDICAL/SURGICAL HISTORY: Gastroesophageal reflux disease. Chronic obstructive pulmonary disea se. Carcinoma, prostatic. Cholecystectomy. Lobectomy. COMPARISON: [facility] [place], MYOCARDIAL PERF PHARM SPECT, 02/27/2017. . No external comparison. DOSE: 8.7 mCi Tc 99m Myoview at rest 26.1 mCi [id number] at stress 0.4 mg Lexiscan STRESS SYMPTOMS: Short of breath. EJECTION FRACTION: 63 % TECHNIQUE: The patient underwent pharmacologic stress with infusion of prescribed dose. Continuous ECG tracing was monitored during stress. Gated SPECT imaging was performed after stress and conventi onal SPECT imaging was performed at rest. The examination was performed on a SPECT/CT scanner, both attenuation and non-corrected datasets were reviewed. FINDINGS: Distribution: The maximum perfused segment at stress is in anterior lateral wall Perfusion Study: The pattern of perfusion at stress is within normal limits. Gated Study: There are intact wall motion and wall thickening without hypokinetic or dyskinetic segm ents. The ejection fraction is calculated at 63%. RISK CATEGORY: Low CONCLUSION: 1. Negative for stress-induced ischemia Electronically signed by: Valentín Chou MD 02/26/2018 10:56 AM EDT
--- NOTE | 2018-02-26 14:09 | ECG ---
Date Performed: 02/25/2018 Time Performed: 20:56:08 PTAGE: 63 years EKG: SUPRAVENTRICULAR BRADYCARDIA ABNORMAL RHYTHM ECG PREVIOUS TRACING : 02/25/2018 17.51 Since previous tracing, no significant change noted DOCTOR: Nazario Hernandez Interpretating Date/Time 02/26/2018 14:09:05
--- NOTE | 2018-02-26 14:10 | ECG ---
Date Performed: 02/25/2018 Time Performed: 17:11:02 PTAGE: 63 years EKG: Sinus rhythm NORMAL ECG NO PREVIOUS TRACING DOCTOR: Nazario Hernandez Interpretating Date/Time 02/26/2018 14:09:21
--- NOTE | 2018-02-26 14:10 | ECG ---
Date Performed: 02/25/2018 Time Performed: 13:02:29 PTAGE: 63 years EKG: Sinus rhythm NORMAL ECG PREVIOUS TRACING : 11/27/2017 19.00 Since previous tracing, no significant change noted DOCTOR: Nazario Hernandez Interpretating Date/Time 02/26/2018 14:09:46
--- NOTE | 2018-02-26 14:10 | ECG ---
Date Performed: 02/25/2018 Time Performed: 17:51:51 PTAGE: 63 years EKG: SINUS BRADYCARDIA BORDERLINE ECG PREVIOUS TRACING : 02/25/2018 13.02 Since previous tracing, no significant change noted DOCTOR: Nazario Hernandez Interpretating Date/Time 02/26/2018 14:09:14
--- NOTE | 2018-03-05 17:44 | TR ---
Date Performed: 02/26/2018 Time Performed: 09:41:54 DOCTOR: Nazario Hernandez DRUG LIST: CLINICAL HISTORY: CHEST PAIN REASON FOR TEST: REASON FOR ENDING: OBSERVATION: CONCLUSION: COMMENTS: Lexiscan stress test was performed under standard four minute protocol. Radionuclide was injected one minute prior to ending the test. No electrocardiographic abormalities were present t o suggest ischemia. Nuclear imaging and interpretation are pending.
== END 2018-02-26 12:30 | disposition home or self-care (01) ==
LOC: NEDA 11:20 → NEPHCDU 11:20 → NEPC 11:20 → NEPHCDU 17:30
PROVIDERS: ADMIT Internal Medicine Interventional Cardiology; ATTEND Internal Medicine Interventional Cardiology
DX: I25.10 Atherosclerotic heart disease of native coronary artery without angina pectoris; Z85.46 Personal history of malignant neoplasm of prostate; K92.2 Gastrointestinal hemorrhage, unspecified; K21.9 Gastro-esophageal reflux disease without esophagitis; F17.210 Nicotine dependence, cigarettes, uncomplicated; D64.9 Anemia, unspecified; I25.2 Old myocardial infarction; J44.9 Chronic obstructive pulmonary disease, unspecified; C61 Malignant neoplasm of prostate; K86.1 Other chronic pancreatitis; M19.90 Unspecified osteoarthritis, unspecified site; K86.81 Exocrine pancreatic insufficiency; N40.0 Benign prostatic hyperplasia without lower urinary tract symptoms; Z86.73 Personal history of transient ischemic attack (TIA), and cerebral infarction without residual deficits; F41.9 Anxiety disorder, unspecified; I10 Essential (primary) hypertension; R07.89 Other chest pain; R53.1 Weakness